=== PATIENT | male | born 1945 | race Caucasian/White ===

== ENCOUNTER → 2017-03-27 09:07 | Outpatient (CLI) | payer MEDICARE, OTHER, SELFPAY ==
[2017-03-27 10:58] LABS: Hemoglobin A1c 6.2 % (4.2-6.3)
[2017-03-27 11:05] LABS: ALB/GLOB Ratio 1.1 RATIO (0.9-2.4); AST(SGOT) 13 U/L (15-37); Alanine Aminotransfer ALT/SGPT 26 U/L (16-61); Albumin, Serum 3.9 g/dL (3.2-5.0); Alkaline Phosphatase 99 U/L (45-117); Anion Gap 9 (5-15); BUN 26 mg/dL (7-18); BUN/Creat Ratio 31.6 RATIO (10-20); Calcium,Total 8.8 mg/dL (8.5-10.1); Chloride 103 mmol/L (98-107); Cholesterol 178 mg/dL (200); Creatinine, Serum 0.82 mg/dL (0.70-1.30); EST Glomerular Filtration Rate 98 mL/min (>60); Est Glom Filt Rate - Afr Amer 118 mL/min (>60); Globulin 3.6 g/dL (2.2-4.2); Glucose 124 mg/dL (70-110); High Density Lipoprotein 66 mg/dL; Potassium 4.4 mmol/L (3.5-5.1); Protein, Total 7.5 g/dL (6.4-8.2); Sodium Level 140 mmol/L (136-145); Triglycerides 58 mg/dL; Very Low Density Lipoprotein 12 mg/dL (5-40)
== END ==
PROVIDERS: Family Provider Family Medicine; PCP Family Medicine; Visit Provider Internal Medicine Endocrinology, Diabetes & Metabolism
DX: E11.9 Type 2 diabetes mellitus without complications (principal); E03.8 Other specified hypothyroidism; E78.00 Pure hypercholesterolemia, unspecified
CPT/HCPCS: 36415; 80053; 80061; 83036; 84443

== ENCOUNTER → 2017-04-15 15:46 | Outpatient (CLI) | payer MEDICARE, OTHER, SELFPAY | PROVIDERS: Family Provider Family Medicine; PCP Family Medicine; Visit Provider Otolaryngology Otolaryngology/Facial Plastic Surgery | DX: J32.9 Chronic sinusitis, unspecified (principal) | CPT/HCPCS: 87070; 87205 ==

== ENCOUNTER → 2017-07-09 07:14 | Outpatient (CLI) | payer MEDICARE, OTHER, SELFPAY ==
[2017-07-09 08:06] LABS: ALB/GLOB Ratio 1.2 RATIO (0.9-2.4); AST(SGOT) 22 U/L (15-37); Alanine Aminotransfer ALT/SGPT 27 U/L (16-61); Albumin, Serum 3.7 g/dL (3.2-5.0); Alkaline Phosphatase 87 U/L (45-117); Anion Gap 5 (5-15); BUN 24 mg/dL (7-18); BUN/Creat Ratio 26.1 RATIO (10-20); Calcium,Total 8.9 mg/dL (8.5-10.1); Chloride 108 mmol/L (98-107); Cholesterol 154 mg/dL (200); Creatinine, Serum 0.92 mg/dL (0.70-1.30); EST Glomerular Filtration Rate 86 mL/min (>60); Est Glom Filt Rate - Afr Amer 104 mL/min (>60); Globulin 3.2 g/dL (2.2-4.2); Glucose 122 mg/dL (74-106); High Density Lipoprotein 72 mg/dL; Potassium 4.3 mmol/L (3.5-5.1); Protein, Total 6.9 g/dL (6.4-8.2); Sodium Level 142 mmol/L (136-145); Thyroid Stim Hormone (TSH) 1.84 uIU/mL (0.358-3.74); Triglycerides 44 mg/dL; Very Low Density Lipoprotein 9 mg/dL (5-40)
[2017-07-09 09:32] LABS: Hemoglobin A1c 6.2 % (4.2-6.3)
== END ==
PROVIDERS: Family Provider Family Medicine; PCP Family Medicine; Visit Provider Internal Medicine Endocrinology, Diabetes & Metabolism
DX: E11.9 Type 2 diabetes mellitus without complications (principal); E03.8 Other specified hypothyroidism; E78.00 Pure hypercholesterolemia, unspecified
CPT/HCPCS: 36415; 80053; 80061; 83036; 84443

== ENCOUNTER → 2017-10-28 07:13 | Outpatient (CLI) | payer MEDICARE, OTHER, SELFPAY ==
[2017-10-28 08:17] LABS: Hemoglobin A1c 6.3 % (4.2-6.3)
[2017-10-28 08:18] LABS: ALB/GLOB Ratio 1.2 RATIO (0.9-2.4); AST(SGOT) 14 U/L (15-37); Alanine Aminotransfer ALT/SGPT 22 U/L (16-61); Albumin, Serum 3.6 g/dL (3.2-5.0); Alkaline Phosphatase 90 U/L (45-117); Anion Gap 10 (5-15); BUN 21 mg/dL (7-18); BUN/Creat Ratio 24.5 RATIO (10-20); Calcium,Total 8.7 mg/dL (8.5-10.1); Chloride 106 mmol/L (98-107); Creatinine, Serum 0.86 mg/dL (0.70-1.30); EST Glomerular Filtration Rate 93 mL/min (>60); Est Glom Filt Rate - Afr Amer 113 mL/min (>60); Glucose 136 mg/dL (74-106); Potassium 4.1 mmol/L (3.5-5.1); Protein, Total 6.6 g/dL (6.4-8.2); Sodium Level 144 mmol/L (136-145); Thyroid Stim Hormone (TSH) 1.05 uIU/mL (0.358-3.74)
== END ==
PROVIDERS: Family Provider Family Medicine; PCP Family Medicine; Visit Provider Internal Medicine Endocrinology, Diabetes & Metabolism
DX: E11.9 Type 2 diabetes mellitus without complications (principal); E03.8 Other specified hypothyroidism
CPT/HCPCS: 36415; 80053; 83036; 84443

== ENCOUNTER → 2017-12-24 08:00 | Outpatient (CLI) | payer MEDICARE, OTHER, SELFPAY ==
--- NOTE | 2017-12-24 09:00 | LES_PTH ---
PATIENT: NITISH MUNOZ LOC: [facility] U#:[id number] AGE/SX: 79/M ROOM: RE12/24/[address]: Dr. Darren Harman MD : 1945 BED: DIS: SPEC #: [id number] RECD: 12/24/17 13:00 STATUS: MARILU JAMAAL #: [id number] MARIA ISABEL: 12/24/17 09:[address]: Darren Harman DEPT: SURGICAL PATHOLOGY RECD BY: William Alicea ENTERED: 12/24/17 14:42 SP TYPE: Lesion OTHR DR: Dr. Shekhar Arana MD Tissues: Skin of upper extremity and shoulder Procedures: Surgery Specimen Level III HEADER OPERATION: Excision of left shoulder skin lesion PRE-OP DIAGNOSIS: Skin lesion, left shoulder TISSUE SUBMITTED: Left shoulder skin lesion MICROSCOPIC DIAGNOSIS Skin lesion of left shoulder, biopsy: Epidermal inclusion cyst. AM:kenny 12/25/17 MICROSCOPIC DESCRIPTION Slides are reviewed. GROSS DESCRIPTION Received in fixative is one container labeled with the patient's name and designated left supraclavicular. The specimen consists of a piece of wilson-white skin measuring 3.6 x 2 cm and up to 1.5 cm in thickness. There is a raised wilson nodule on the surface measuring 2.5 x 1.8 cm. Sections reveal the nodule consists of a cyst filled with wilson-white cheesy material. Intern sections are submitted in one cassette. / SJ:kenny 12/24/17 :5 CPT: 02041
== END ==
PROVIDERS: Family Provider Family Medicine; PCP Family Medicine; Referring Provider Surgery; Visit Provider Surgery
DX: L98.9 Disorder of the skin and subcutaneous tissue, unspecified (principal)
CPT/HCPCS: 88304; 88305

== ENCOUNTER → 2018-01-21 08:25 | Outpatient (CLI) | payer MEDICARE, OTHER, SELFPAY ==
[2017-11-18 13:20] VITALS: BMI 27.0
[2018-01-21 11:00] LABS: PSA,Total - Annual Screen 0.15 ng/mL (0.00-4.00)
--- OUTSIDE RECORDS SUMMARY | 2018-03-18 13:37 | XMS RPT_ITS ---
:1945 Author Organization [place] Support Name Relationship Address Phone QI MUNOZ Unavailable [address] + [place] [address] LORELEI MUNOZ Unavailable [address] + [place] [address] R Unavailable Unavailable Unavailable QI MUNOZ Unavailable [address] + [place] [address] LORELEI MUNOZ Unavailable [address] + [place] [address] R Unavailable Unavailable Unavailable QI MUNOZ Unavailable [address] + [place] [address] LORELEI MUNOZ Unavailable [address] + [place] [address] R Unavailable Unavailable Unavailable QI MUNOZ Unavailable [address] + [place] [address] LORELEI MUNOZ Unavailable [address] + [place] [address] R Unavailable Unavailable Unavailable QI MUNOZ Unavailable [address] + [place] [address] LORELEI MUNOZ Unavailable [address] + [place] [address] R Unavailable Unavailable Unavailable QI MUNOZ Unavailable [address] + [place] [address] LORELEI MUNOZ Unavailable [address] + [place] [address] R Unavailable Unavailable Unavailable QI MUNOZ Unavailable [address] [phone] [place] [address] LORELEI MUNOZ Unavailable [address] + [place] [address] R Unavailable Unavailable Unavailable QI MUNOZ Unavailable [address] [phone] [place] [address] LORELEI MUNOZ Unavailable [address] + [place] [address] R Unavailable Unavailable Unavailable QI MUNOZ Unavailable [address] [phone] [place] [address] LORELEI MUNOZ Unavailable [address] + [place] [address] R Unavailable Unavailable Unavailable QI MUNOZ Unavailable [address] [phone] [place] [address] LORELEI MUNOZ Unavailable [address] + [place] [address] R Unavailable Unavailable Unavailable QI MUNOZ Unavailable [address] [phone] [place] [address] LORELEI MUNOZ Unavailable [address] + [place] [address] R Unavailable Unavailable Unavailable Care Team Providers Name Role Phone SHEKHAR ARANA Referring Unavailable JAYCOB SIN Attending Unavailable Yasmeen, Shekhar Primary Care Unavailable Gordon Lamb Attending Unavailable Yasmeen, Shekhar Primary Care Unavailable Gordon Lamb Referring Unavailable Cynthia Minor Attending Unavailable Vishal Monte Attending Unavailable Shekhar Arana Referring Unavailable Yasmeen, Shekhar Primary Care Unavailable JAYCOB SIN Attending Unavailable JAYCOB SIN Referring Unavailable Yasmeen, Shekhar Primary Care Unavailable JAYCOB SIN Attending Unavailable JAYCOB SIN Referring Unavailable Yasmeen, Shekhar Primary Care Unavailable Darren Harman Attending Unavailable Shekhar Arana Referring Unavailable Darren Harman Attending Unavailable Shekhar Arana Referring Unavailable Darren Harman Attending Unavailable CebulDarren Referring Unavailable Yasmeen, Shekhar Primary Care Unavailable Nurse, Felipe Attending Unavailable Darren Harman Referring Unavailable Kev [place] Attending Unavailable Kev [place] Referring Unavailable [facility], Shekhar Primary Care Unavailable PROBLEMS PROBLEMS DATE TYPE CONDITION / CODE ATTENDING STATUS SOURCE 12/30/2017 Unknown L98.9 - Disorder of Nurse, Standard Active [facility] skin and Community subcutaneous tissue, Hospital unspecified / Repository L98.9(ICD-10) 11/19/2017 Active Unknown / NA Active [facility](Unknown) [facility] Repository 10/28/2017 Unknown E11.9 - Type 2 JAYCOB SIN Active [facility] diabetes mellitus Community without Hospital complications / Repository E11.9(ICD-10) 10/28/2017 Unknown E03.8 - Other WIETESILVIA, JAYCOB Active [place] specified Community hypothyroidism / Hospital E03.8(ICD-10) Repository 10/28/2017 Unknown E03.9 - WIETECHA, JAYCOB Active [place] Hypothyroidism, Community unspecified / Hospital E03.9(ICD-10) Repository 07/09/2017 Unknown E78.00 - Pure WIETECHA, JAYCOB Active [place] hypercholesterolemia Community , unspecified / Hospital E78.00(ICD-10) Repository 06/05/2017 Unknown I49.3 - Ventricular Lavell, Vishal Active [place] premature Community depolarization / Hospital I49.3(ICD-10) Repository 06/05/2017 Unknown R00.1 - Bradycardia, Lavell, Telford Active [place] unspecified / Community R00.1(ICD-10) Hospital Repository PROCEDURES PROCEDURES No Procedure Records FoundRESULTS RESULTS PSA,TOTAL - ANNUAL Collected: 01/21/2018 Status: F Source: [place] SCREEN 10:06 AM [facility] REPOSITORY TYPE CODE TESTS RESULT OUT OF RANGE REFERENCE UNITS LAB L501.9910 0.00-4.00 ng/mL Normal PSA,TOT 0.15 SCREEN Result Comment: This test was performed using the TPSA assay method for the [employer] chemistry system. Values obtained with different assay methods cannot be used interchangably. When changing PSA assays in the course of monitoring a patient, additional sequential testing should be carried out to confirm baseline values. Performed By: #### L501.9910 #### [facility] [address] [place], [address] SURGERY VISIT REPORT Observed: 12/31/2017 Status: F Source: [place] 1:55 PM [facility] REPOSITORY [facility] [address] [place] [address] OFFICE VISIT Date of Service: 12/30/17 MR#: [id number] Acct: [id number] Name: CHANCE MUNOZ Rep #: [id number] : 1945 Provider: Standard Nurse, RN Age/Sex: 72/M Location: [facility] Status: Signed Intake Intake Visit Reasons: Suture Removal/Excision of Skin lesion L Shoulder Chief Complaint: excision left supraclavicular lesion Veteran Appeals Reviewer Required: No Is patient in pain?: No Allergies cefaclor [From Ceclor] Allergy (Verified 12/30/17 10:09) Unknown nortriptyline Allergy (Verified 12/30/17 10:09) Unknown Penicillins Allergy (Verified 12/30/17 10:09) blisters on feet alfuzosin [From Uroxatral] Adverse Reaction (Verified 12/30/17 10:09) Unknown esomeprazole [From Nexium] Adverse Reaction (Verified 12/30/17 10:09) Itching lansoprazole [From Prevacid] Adverse Reaction (Verified 12/30/17 10:09) Upset Stomach METAL Allergy (Uncoded 12/30/17 10:09) Rash Medications Azelastine HCl [Astelin] 1 spray NASAL BID PRN PRN 11/23/15 [History Confirmed 12/30/17] Finasteride [Proscar] 5 mg PO DAILY 11/23/15 [History Confirmed 12/30/17] Levothyroxine [Synthroid] 88 mcg PO DAILY 11/23/15 [History Confirmed 12/30/17] Paroxetine HCl [Paxil] 30 mg PO DAILY 01/01/16 [History Confirmed 12/30/17] Cholecalciferol (Vitamin D3) [Vitamin D3] 2,000 unit PO DAILY 04/25/16 [History Confirmed 12/30/17] Pumpkin Seed Oil/Saw [place] [Saw [place] 160 mg Softgel] 160 mg PO DAILY 04/25/16 [History Confirmed 12/30/17] magnesium 250 mg tablet 125 mg PO QDAY 06/05/17 [History Confirmed 12/30/17] Subjective Details: Patient is a 72 y/o male I am following for skin lesion of the left shoulder. Dr. Harman performed a an excision of the left shoulder skin lesion on 12/24/17. Patient tolerated the procedure well. Pathology resulted epidermal inclusion cyst. Patient notes minimal amount of incisional discomfort. Objective Details: Left shoulder- incision c/d/i. Minimal erythema noted. Sutures were removed. Steri-strips placed. Assessment AND Plan Problems 1. Epidermal inclusion cyst L72.0 Plan - follow-up as needed Coding Level of Care Code Global Post Op Diagnoses Epidermal inclusion cyst L72.0 12/31/17 1355 <Electronically signed by Kayla Posey PA-C> Date Kayla Posey PA-C Cosigner Signature: Date (if applicable) CC: SURGERY VISIT REPORT Observed: 12/24/2017 Status: F Source: [place] 9:24 AM [facility] REPOSITORY [facility] [address] [place] [address]. [address] [place] [address] OFFICE VISIT Date of Service: 12/24/17 MR#: [id number] Acct: [id number] Name: CHANCE MUNOZ Rep #: [id number] : 1945 Provider: Darren Harman MD Age/Sex: 72/M Location: [facility] Status: Signed Intake Intake Visit Reasons: Excision of Skin lesion L Shoulder Chief Complaint: excision left supraclavicular lesion Veteran Appeals Reviewer Required: No Is patient in pain?: No Allergies cefaclor [From Ceclor] Allergy (Verified 12/24/17 07:53) Unknown nortriptyline Allergy (Verified 12/24/17 07:53) Unknown Penicillins Allergy (Verified 12/24/17 07:53) blisters on feet alfuzosin [From Uroxatral] Adverse Reaction (Verified 12/24/17 07:53) Unknown esomeprazole [From Nexium] Adverse Reaction (Verified 12/24/17 07:53) Itching lansoprazole [From Prevacid] Adverse Reaction (Verified 12/24/17 07:53) Upset Stomach METAL Allergy (Uncoded 11/18/17 13:20) Rash Medications Azelastine HCl [Astelin] 1 spray NASAL BID PRN PRN 11/23/15 [History Confirmed 11/18/17] Finasteride [Proscar] 5 mg PO DAILY 11/23/15 [History Confirmed 11/18/17] Levothyroxine [Synthroid] 88 mcg PO DAILY 11/23/15 [History Confirmed 11/18/17] Paroxetine HCl [Paxil] 30 mg PO DAILY 01/01/16 [History Confirmed 11/18/17] Cholecalciferol (Vitamin D3) [Vitamin D3] 2,000 unit PO DAILY 04/25/16 [History Confirmed 11/18/17] Pumpkin Seed Oil/Saw [place] [Saw [place] 160 mg Softgel] 160 mg PO DAILY 04/25/16 [History Confirmed 11/18/17] magnesium 250 mg tablet 125 mg PO QDAY 06/05/17 [History Confirmed 11/18/17] [facility] Medical History Skin lesion (Acute) Premature ventricular contractions (Chronic) Bradycardia (Chronic) Fibromyalgia (Chronic) GERD (gastroesophageal reflux disease) (Chronic) Surgical History History of cholecystectomy (Chronic) History of tonsillectomy and adenoidectomy (Chronic) Family History Father Diabetes Afib pacemaker Mother Heart disease Hx CHF Hypertension Social History Smoking Status: Never smoker alcohol intake: never substance use type: does not use caffeine: Yes Type: carbonated beverages what type of physical activity do you participate in: none seatbelt use: always do you feel safe at home: Yes HPI HPI HPI: CHANCE MUNOZ, is a 72 M who presents to the office today for excision of recurrent exophytic skin lesion left apical shoulder Office Procedures Excision of Skin Provider Documentation Provider Documentation: Excision exophytic left apical shoulder skin lesion Timeout and informed consent was obtained. 72-year-old gentleman was taken to the procedure room placed upon the table. The left apical shoulder was sterilely prepped and draped. 1% lidocaine mixed 50-50 with 0.5% Marcaine was used as a local anesthetic. A total of 9 cc was used. A longitudinal 3.5 x 2 cm ellipse of lesion and skin was performed. Sharp dissection is performed down into the subcutaneous tissue for complete removal. Subdermal tissues were approximated with interrupted 3-0 chromic. Skin edges approximated simple sutures of 4-0 nylon. Telfa OpSite dressing applied . He tolerated the procedure well without apparent complication. The specimen was submitted in formalin for analysis. He was given activity and wound care instructions. He is scheduled to return the office in 6 days time for wound follow-up and suture removal. Procedure Time Out Time Out Informed consent given: Yes Consent signed: Yes Time out checklist: patient, procedure, site marked/identified, positioning of patient, supplies available, allergies confirmed, team agrees on procedure Time out staff in room: Yes Time out verified: Yes Time out date: 12/24/17 Time out time: 07:55 Assessment AND Plan Problems 1. Skin lesion L98.9 Plan Successfully excised exophytic skin lesion left apical shoulder. Pathology pending. Office follow-up in 6 days. Darren Harman M.D., F.A.C.S. Orders Orders: Coding Level of Care Code Attention [place]ida Diagnoses Skin lesion L98.9 Comment [id number] 12/24/17 0924 <Electronically signed by Darren Harman MD> Date Darren Harman MD Cosigner Signature: Date (if applicable) CC: Shekhar Arana MD LESION (CHOOSE SITE) Observed: 12/24/2017 Status: F Source: [place] 9:00 AM [facility] REPOSITORY Patient: CHANCE MUNOZ : 1945 (72/M) Acct Num: [id number] Phys: Ghazal MCKENZIE,Darren Unit Num: [id number] Loc: [facility] Specimen: [id number] Received: 12/24/17 - 1299 Spec Type: Lesion TISSUES 1 TISSUES: Skin of upper extremity and shoulder GROSS DESCRIPTION Received in fixative is one container labeled with the patient's name and designated left supraclavicular. The specimen consists of a piece of wilson- white skin measuring 3.6 x 2 cm and up to 1.5 cm in thickness. There is a raised wilson nodule on the surface measuring 2.5 x 1.8 cm. Sections reveal the nodule consists of a cyst filled with wilson-white cheesy material. [employer] Clerk sections are submitted in one cassette. / SJ:kenny 12/24/17 TC:5 CPT: 66926 HEADER OPERATION: Excision of left shoulder skin lesion PRE-OP DIAGNOSIS: Skin lesion, left shoulder TISSUE SUBMITTED: Left shoulder skin lesion MICROSCOPIC DESCRIPTION Slides are reviewed. MICROSCOPIC DIAGNOSIS Skin lesion of left shoulder, biopsy: Epidermal inclusion cyst. AM:kenny 12/25/17 Signed [facility]ma[facility] 12/25/17 <signature on file> Performed By: #### PLES #### [facility] [address] [place] [address]. [place], [place], [address] PROGRESS Observed: 11/19/2017 Status: COMPLETED Source: [place] 8:40 AM [facility] REPOSITORY HNO ID: [id number] Author: Neris (Rt) Nicola Munoz Service: (none) Author Type: Pediatric Rn Type: Progress Notes Filed: 11/19/2017 8:41 AM Note Text: Radiology Service Progress Note PATIENT NAME: Chance Munoz DATE OF SERVICE: November 19, 2017 TIME: 8:40 AM PATIENT IDENTITY VERIFICATION COMPLETED USING TWO (2) METHODS: Patient confirmed name verbally and Date of . PATIENT GENDER DATA: Male PATIENT RELEVANT IMPLANT DATA REVIEWED: Not Applicable RADIOLOGY DEPARTMENT: General X-ray: Exam(s) Completed: Chest X-Ray PERIPHERAL IV DATA: Not applicable SIGNED BY: RT [place]eta November 19, 2017 8:40 AM XR CHEST 2V FRONTAL/LAT Observed: 11/19/2017 Status: F Source: [place] 8:39 AM [facility] REPOSITORY * * *Final Report* * * DATE OF EXAM: Nov 19 2017 8:39AM WRX [id number] - XR CHEST 2V FRONTAL/LAT / PROCEDURE REASON: chest * * * * Physician Interpretation * * * * EXAMINATION: CHEST RADIOGRAPH (2 VIEW FRONTAL and LATERAL) CLINICAL HISTORY: Cough MQ: XC2_5 Comparison: Chest x-ray 05/19/2007 RESULT: Lines, tubes, and devices: None. Lungs and pleura: No consolidation. No lung mass. No pleural effusion. Cardiomediastinal silhouette: Normal cardiomediastinal silhouette. Other: . IMPRESSION: No acute radiographic abnormality. Fuel Truck Driver: PSCJessica Transcribe Date/Time: Nov 19 2017 8:54A Dictated by : MELVA ENCISO MD This examination was interpreted and the report reviewed and electronically signed by: MELVA ENCISO MD on Nov 19 2017 8:59AM EST [id number] SURGERY VISIT REPORT Observed: 11/18/2017 Status: F Source: [place] 1:27 PM [facility] REPOSITORY [facility] [address] [place] [address]. [address] [place] [address] OFFICE VISIT Date of Service: 11/18/17 MR#: [id number] Acct: [id number] Name: CHANCE MUNOZ Rep #: [id number] : 1945 Provider: Darren Harman MD Age/Sex: 72/M Location: [facility] Status: Signed Intake Vital Signs11/18/17 Height 5 ft 11 in 11/18/17 Weight: 194 lb 11/18/17 Body Mass Index (BMI) 27.0 Intake Visit Reasons: L Suprclavicular Skin Mass Chief Complaint: Follow up Veteran Appeals Reviewer Required: No Is patient in pain?: No Allergies cefaclor [From Ceclor] Allergy (Verified 11/18/17 13:20) Unknown nortriptyline Allergy (Verified 11/18/17 13:20) Unknown Penicillins Allergy (Verified 11/18/17 13:20) blisters on feet alfuzosin [From Uroxatral] Adverse Reaction (Verified 11/18/17 13:20) Unknown esomeprazole [From Nexium] Adverse Reaction (Verified 11/18/17 13:20) Itching lansoprazole [From Prevacid] Adverse Reaction (Verified 11/18/17 13:20) Upset Stomach METAL Allergy (Uncoded 11/18/17 13:20) Rash Medications Azelastine HCl [Astelin] 1 spray NASAL BID PRN PRN 11/23/15 [History Confirmed 11/18/17] Finasteride [Proscar] 5 mg PO DAILY 11/23/15 [History Confirmed 11/18/17] Levothyroxine [Synthroid] 88 mcg PO DAILY 11/23/15 [History Confirmed 11/18/17] Paroxetine HCl [Paxil] 30 mg PO DAILY 01/01/16 [History Confirmed 11/18/17] Cholecalciferol (Vitamin D3) [Vitamin D3] 2,000 unit PO DAILY 04/25/16 [History Confirmed 11/18/17] Pumpkin Seed Oil/Saw [place] [Saw [place] 160 mg Softgel] 160 mg PO DAILY 04/25/16 [History Confirmed 11/18/17] magnesium 250 mg tablet 125 mg PO QDAY 06/05/17 [History Confirmed 11/18/17] PFSH Medical History Premature ventricular contractions (Chronic) Bradycardia (Chronic) Fibromyalgia (Chronic) GERD (gastroesophageal reflux disease) (Chronic) Surgical History History of cholecystectomy (Chronic) History of tonsillectomy and adenoidectomy (Chronic) Family History Father Diabetes Afib pacemaker Mother Heart disease Hx CHF Hypertension Social History Smoking Status: Never smoker alcohol intake: never substance use type: does not use caffeine: Yes Type: carbonated beverages what type of physical activity do you participate in: none seatbelt use: always do you feel safe at home: Yes HPI HPI HPI: CHANCE MUNOZ, is a 72 M who presents to the office today for surgical consultation regarding a recurrent dermal lesion left supraclavicular area. The patient is referred by Dr. Shekhar Arana and a written copy of my surgical consult recommendations will return to him. By report Dr. Felix Lakhani apparently remove this area several years back. The patient is very nonspecific. Patient states that was not completely excised at that time. The patient is not on any anticoagulants. The area has been progressively enlarging. ROS General General: No weight change, appetite, fatigue, colon cancer, breast cancer or weakness HEENT HEENT: No difficulty swallowing, eye injury, eye surgery, swollen glands or hoarseness Endo Endocrine: No thyroid disease, diabetes mellitus, thyroid cancer, Hair loss, heat intolerance or cold intolerance Skin Skin: No rash or changing moles Breast Breast: No left breast lump, right breast lump, nipple discharge, breast pain, abnormal mammogram, abnormal US or breast enlargement Musc Musculoskeletal: Yes back problems; no arthritis, rheumatoid arthritis, gout or joint pain Cardio Cardiovascular: No murmur, pacemaker, heart disease, atrial fibrillation, high blood pressure, heart attack, heart stent, palpitations, shortness of breat with exertion or chest pain Psych Psychiatric: Yes anxiety; no depression or hearing voices Resp Respiratory: No shortness of breath, No sleep apnea, No cough, No COPD, No asthma, No emphysema, No wheezing Gastro Gastrointestinal: Yes abdominal pain, Yes acid reflux, No nausea or vomiting, No diarrhea, No constipation, No blood in stool, No hemorrhoids, No ulcers, No gallbladder problem, No black,tarry stools Sherwin Hematologic: No blood thinners, No blood disorders, No bleeding, No anemia, No blood clots Neuro Neurologic: No system reviewed and no additional complaints, except as docu, No as per HPI, No abnormal walking, No abnormal hearing, No abnormal movements, No abnormal speech, No behavioral changes, No burning sensations, No confusion, No seizure-like activity, No unsteadiness, No dizziness, No localized weakness, No frequent falls, No headache(s), No lack of coordination, No loss of vision, No memory loss, No numbness, No other visual disturbances, No radiating pain, No restless legs, No sensory deficit, No fainting, No tingling, No tremor(s), No weakness, No other Exam Chest Breast Palpation: No nipple discharge Other: Left supraclavicular space. Exophytic whitish wilber colored 2.3 x 1.4 cm exophytic smooth lesion Cardio Heart Sounds: no murmurs Assessment AND Plan Problems 1. Skin lesion L98.9 Plan The patient was referred with a tentative diagnosis of possible hemangioma left supraclavicular space. I have some concern that this may represent a recurrent sebaceous cyst. It certainly has some size to it. I do recommend a elliptical excision of the area. I believe that we can accomplish that in an office setting under local anesthetic and I have described the technique, benefits, risks, alternatives. A complete elliptical excision is planned with layered closure. He has had an opportunity to ask and have questions answered. We will schedule and proceed at his discretion. I appreciate the opportunity of assisting with his surgical care. Cc: Dr. Shekhar Harman M.D., F.A.C.S. Coding Level of Care Code Off vis,new,level 1 Diagnoses Skin lesion L98.9 11/18/17 1327 <Electronically signed by Darren Harman MD> Date Darren Harman MD Cosigner Signature: Date (if applicable) CC: Shekhar Arana MD HEMOGLOBIN A1C Collected: 10/28/2017 Status: F Source: [place] 7:19 AM [facility] REPOSITORY TYPE CODE TESTS RESULT OUT OF RANGE REFERENCE UNITS LAB L501.9985 4.2-6.3 % Normal HGB A1C 6.3 Performed By: #### L501.9985 #### [facility] [address] [place], [address] COMPREHENSIVE METABOLIC Collected: 10/28/2017 Status: F Source: [facility] 7:19 AM [facility] REPOSITORY TYPE CODE TESTS RESULT OUT OF RANGE REFERENCE UNITS LAB L501.0100 74-106 mg/dL High GLU 136 Result Comment: Fasting Glucose result greater than or equal to 126 mg/dL suggests DIABETES MELLITUS per A.D.A. criteria. Please note revised GLUCOSE reference range effective 2017. LAB L501.1000 7-18 mg/dL High BUN 21 LAB L501.1100 0.70-1.30 mg/dL Normal CREAT,SERUM 0.86 Result Comment: The validity of the calculated GFR AND GFRAA in patients over 70 years has not been determined. Clinical correlation is essential. LAB L501.1110 >60 mL/min Normal EST GFR 93 Result Comment: Non- GFR Calc LAB L501.1115 >60 mL/min Normal EST GFR - AA 113 Result Comment: GFR Calc LAB L501.1300 10-20 RATIO High BUN/CRE 24.5 LAB L501.1500 6.4-8.2 g/dL T Normal PROT 6.6 LAB L501.1800 3.2-5.0 g/dL Normal ALB 3.6 LAB L501.1950 2.2-4.2 g/dL Normal GLOB 3.0 LAB L501.2000 0.9-2.4 RATIO Normal A/G 1.2 LAB L501.2200 8.5-10.1 mg/dL CA Normal 8.7 LAB L501.4100 15-37 U/L Low AST 14 LAB L501.4305 45-117 U/L Normal ALK P 90 LAB L501.4405 16-61 U/L Normal ALT 22 LAB L501.4600 0.20-1.00 mg/dL T Normal BILI 0.70 LAB L501.5300 136-145 mmol/L NA Normal 144 LAB L501.5600 3.5-5.1 mmol/L K Normal 4.1 LAB L501.5900 98-107 mmol/L CL Normal 106 LAB L501.6100 21.0-32.0 mmol/L Normal CO2 28.0 LAB L501.6200 5-15 Normal GAP 10 Performed By: #### L500.4050, L501.9520 #### [facility] [address] [place], [place], [id number] THYROID STIM HORMONE Collected: 10/28/2017 Status: F Source: [place] ([place]) 7:19 AM [facility] REPOSITORY TYPE CODE TESTS RESULT OUT OF RANGE REFERENCE UNITS LAB L501.9520 0.358-3.74 uIU/mL Normal TSH 1.05 Performed By: #### L500.4050, L501.9520 #### [facility] [address] [place], [place], [address] COMPREHENSIVE METABOLIC Collected: 07/09/2017 Status: F Source: [place] 7:18 AM [facility] REPOSITORY TYPE CODE TESTS RESULT OUT OF RANGE REFERENCE UNITS LAB L501.0100 74-106 mg/dL High GLU 122 Result Comment: Fasting Glucose result from 100 to 125 mg/dL suggests IMPAIRED HOMEOSTASIS per A.D.A. criteria. Please note revised GLUCOSE reference range effective 2017. LAB L501.1000 7-18 mg/dL High BUN 24 LAB L501.1100 0.70-1.30 mg/dL Normal CREAT,SERUM 0.92 Result Comment: The validity of the calculated GFR AND GFRAA in patients over 70 years has not been determined. Clinical correlation is essential. LAB L501.1110 >60 mL/min Normal EST GFR 86 Result Comment: Non- GFR Calc LAB L501.1115 >60 mL/min Normal EST GFR - AA 104 Result Comment: GFR Calc LAB L501.1300 10-20 RATIO High BUN/CRE 26.1 LAB L501.1500 6.4-8.2 g/dL T Normal PROT 6.9 LAB L501.1800 3.2-5.0 g/dL Normal ALB 3.7 LAB L501.1950 2.2-4.2 g/dL Normal GLOB 3.2 LAB L501.2000 0.9-2.4 RATIO Normal A/G 1.2 LAB L501.2200 8.5-10.1 mg/dL CA Normal 8.9 LAB L501.4100 15-37 U/L Normal AST 22 LAB L501.4305 45-117 U/L Normal ALK P 87 LAB L501.4405 16-61 U/L Normal ALT 27 LAB L501.4600 0.20-1.00 mg/dL T Normal BILI 0.80 LAB L501.5300 136-145 mmol/L NA Normal 142 LAB L501.5600 3.5-5.1 mmol/L K Normal 4.3 LAB L501.5900 98-107 mmol/L High CL 108 LAB L501.6100 21.0-32.0 mmol/L Normal CO2 29.0 LAB L501.6200 5-15 Normal GAP 5 Performed By: #### L500.4050, L500.4100, L501.9520 #### [facility] [address] [place], [address] LIPID PROFILE Collected: 07/09/2017 Status: F Source: GILBERT 7:18 AM [facility] REPOSITORY TYPE CODE TESTS RESULT OUT OF RANGE REFERENCE UNITS LAB L501.4900 200 mg/dL Normal CHOL 154 Result Comment: <200 mg/dL Desirable 200-240 mg/dL Borderline >240 mg/dL High Risk LAB L501.5000 mg/dL Normal TRIG 44 Result Comment: The drugs N-Acetylcysteine and Metamizole may falsely depress this assay. Serum Triglycerides Reference Interval Normal <150 mg/dL Borderline high 150 - 199 mg/dL High 200 - 499 mg/dL Very High > or = 500 mg/dL LAB L501.6400 mg/dL Normal HDL 72 Result Comment: The drugs N-Acetylcysteine and Metamizole may falsely depress this assay. Reference Range HDL <40 mg/dL Low HDL Cholesterol HDL >or= 60 mg/dL High HDL Cholesterol LAB L501.6500 0-130 mg/dL Normal LDL 73 LAB L501.6600 5-40 mg/dL Normal VLDL 9 Performed By: #### L500.4050, L500.4100, L501.9520 #### [facility] [address] [place], [address] THYROID STIM HORMONE Collected: 07/09/2017 Status: F Source: [place]IA[place] (TSH) 7:18 AM [facility] REPOSITORY TYPE CODE TESTS RESULT OUT OF RANGE REFERENCE UNITS LAB L501.9520 0.358-3.74 uIU/mL Normal TSH 1.84 Performed By: #### L500.4050, L500.4100, L501.9520 #### [facility] [address] [place], [address] HEMOGLOBIN A1C Collected: 07/09/2017 Status: F Source: DIA[place] 7:18 AM [facility] REPOSITORY TYPE CODE TESTS RESULT OUT OF RANGE REFERENCE UNITS LAB L501.9985 4.2-6.3 % Normal HGB A1C 6.2 Performed By: #### L501.9985 #### [facility] [address] [place], [address] CARDIOLOGY VISIT Observed: 06/05/2017 Status: F Source: DIAZ REPORT 1:36 PM [facility] REPOSITORY [facility] [address] [place] [address] OFFICE VISIT Date of Service: 06/05/17 MR#: [id number] Acct: [id number] Name: CHANCE MUNOZ Rep #: [id number] : 1945 Provider: Vishal Monte MD Age/Sex: 71/M Location: [facility] [place] Status: Signed HPI HPI Chief Complaint: Follow up Details: CHANCE MUNOZ, is a 71 M who presents to the office today for a follow-up visit. Is a gentleman with a history of bradycardia and premature ventricular complexes. He returns for routine follow-up visit. He has a number of multiple complaints including xerostomia tinnitus myalgias dizziness constipation and nocturia. He has had no neck arm or jaw discomfort suggest angina no dizziness or diaphoresis no near syncope or syncope. His physical exam today demonstrates clear lung alejandre regular rate and rhythm and no pedal edema his electrocardiogram confirms normal sinus rhythm with a rate of 62 bpm. 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 Accompanied by: None Is patient in pain?: No Allergies cefaclor [From Ceclor] Allergy (Verified 06/05/17 11:11) Unknown nortriptyline Allergy (Verified 06/05/17 11:11) Unknown Penicillins Allergy (Verified 06/05/17 11:11) blisters on feet alfuzosin [From Uroxatral] Adverse Reaction (Verified 06/05/17 11:11) Unknown esomeprazole [From Nexium] Adverse Reaction (Verified 06/05/17 11:11) Itching lansoprazole [From Prevacid] Adverse Reaction (Verified 06/05/17 11:11) Upset Stomach METAL Allergy (Uncoded 04/25/16 15:16) Rash Medications Azelastine HCl [Astelin] 1 spray NASAL BID PRN PRN 11/23/15 [History Confirmed 06/05/17] Finasteride [Proscar] 5 mg PO DAILY 11/23/15 [History Confirmed 06/05/17] Levothyroxine [Synthroid] 88 mcg PO DAILY 11/23/15 [History Confirmed 06/05/17] Paroxetine HCl [Paxil] 30 mg PO DAILY 01/01/16 [History Confirmed 06/05/17] Cholecalciferol (Vitamin D3) [Vitamin D3] 2,000 unit PO DAILY 04/25/16 [History Confirmed 06/05/17] Pumpkin Seed Oil/Saw [place] [Saw [place] 160 mg Softgel] 160 mg PO DAILY 04/25/16 [History Confirmed 06/05/17] magnesium 250 mg tablet 125 mg PO QDAY 06/05/17 [History Confirmed 06/05/17] Ejection fraction %: 50 to 54 (50% per echo 12/04/2015) [facility] Medical History Premature ventricular contractions (Chronic) Bradycardia (Chronic) Fibromyalgia (Chronic) GERD (gastroesophageal reflux disease) (Chronic) Surgical History History of cholecystectomy (Chronic) History of tonsillectomy and adenoidectomy (Chronic) Family History Father Diabetes Afib pacemaker Mother Heart disease Hx CHF Hypertension Social History Smoking Status: Never smoker alcohol intake: never substance use type: does not use caffeine: Yes Type: carbonated beverages what type of physical activity do you participate in: none seatbelt use: always do you feel safe at home: Yes ROS Const Const: Negative for body ache, fever(s), chills, night sweats, daytime sleepiness, difficulty sleeping, weight gain, weight loss, increased appetite, poor appetite, anorexia, other, frequent falls, headache(s), weakness, fatigue or excessive sweating Eyes Eyes: Negative for blind spots, loss of peripheral vision, transient loss of vision, change in vision, floaters, tunnel vision, other, blurry vision or double vision ENT ENT: Positive for tinnitus and dry mouth; negative for hearing loss, Nosebleed/epistaxis, balance problems, post nasal drip, lip swelling, tongue swelling, bleeding gums, hoarseness, neck pain, other, dizziness or headache(s) Cardio Chest Pain: No Palpitations: No Edema: Bilateral (lower extremities) Muscle aches with walking: None Resp Respiratory: Negative for SOB with activity, SOB at rest, SOB orthopnea\SOB lying down, Cough, Coughing up blood/hemoptysis, chest congestion, pain on inspiration, snoring, stridor, wheezing, crackles, paroxysmal nocturnal dyspnea or other GI GI: Positive for heartburn and constipation; negative nausea, vomiting, belching, bloating, cramping, vomiting blood/hematemesis, bright, red blood in stools, black,tarry stools, loose stools, Difficulty Swallowing or other : Positive for frequent nighttime urination/ nocturia; negative for hematuria, erectile dysfunction or abnormal vaginal bleeding Musc Musc: Positive for muscle aches/ myalgia; negative for muscle weakness, joint pain or balance problems Skin Skin: Negative redness, non-healing lesions, rash, unusual bruising, skin ulcer, wounds, jaundice or other Neuro Neuro: Negative for dizziness, lightheadedness, near syncope, syncope, orthostatic symptoms, frequent falls, headache(s), weakness, confusion, memory loss, restless legs, blurry vision, double vision, vertigo, seizures, lack of coordination or other [place]win Hematologic/Lymphatic: Negative for easy bleeding, easy bruising or enlarged lymph nodes Endo Endo: Negative for fatigue, cold intolerance, heat intolerance, excessive sweating, flushing, increased thirst/drinking, increased hunger, hair loss, hair growth or other Psych Psych: Negative for anxiety, depression, thoughts of harming anyone, thoughts of harming yourself, panic attacks, visual hallucinations or audible hallucinations Allergy Allergy/Immunology: Negative for throat swelling, Negative for hives, Negative for lip swelling, Negative for tongue swelling, Negative for rash Cardiology Exam Const Appearance: cooperative, healthy appearing, well developed, well groomed and no acute distress Nutritional Appearance: well nourished and average body habitus Orientation: alert, awake and oriented x3 Head Head: normal to inspection, normocephalic and atraumatic Ears: hearing grossly normal bilaterally and external ears normal Nose: external nose normal, nasal mucous membranes and turbinates normal, nares normal, septum normal, no nasal discharge Face and Sinus: face symmetric Mouth: oral mucosae normal, tongue normal, oropharynx normal and moist mucous membranes Teeth and gingiva: dentition normal Throat: posterior oropharynx normal, tonsils normal and uvula midline Eyes General: appearance normal, both eyes and all related structures Eyelids: eyelids normal Conjunctivae: conjunctivae normal Pupils: PERRL, normal by confrontation and accommodation normal EOM: EOM intact bilaterally Neck Neck: normal visual inspection, trachea midline and no JVD JVD: +5 Carotids: normal carotid upstroke and bounding pulses Chest Chest inspection: normal inspection of the chest, symmetric chest movement and normal respiratory effort Auscultation: Bilateral: Clear to Auscultation Cardio Palpation: normal PMI Rate: regular rate Rhythm: regular rhythm Heart sounds: S1 normal, S2 normal and normal, physiologic split S2; negative rub, gallop or murmur GI GI: normal to inspection, soft, no hepatosplenomegaly and bowel sounds present Neuro General: alert, awake, oriented x3, no focal sensory deficit, gait normal and moves all extremities Skin Skin: no rashes or lesions noted Extremities Pulses: Normal: Right Femoral Pulse, Left Femoral Pulse, Right Dorsalis Pedis Pulse, Left Dorsalis Pedis Pulse, Right Posterior Tibial Pulse, Left Posterior Tibial Pulse, Right Radial Pulse, Left Radial Pulse Lower Extremity Edema: None: Bilateral Musculoskel Musculoskeletal: No joint tenderness Psych Psychological: normal affect Assessment AND Plan 1. Premature ventricular contractions I49.3 Plan He does have a history of premature ventricular complexes which are infrequent and asymptomatic. My recommendation at this time would be to continue to follow him clinically. He has had recent electrolytes obtained which have been normal. I would not suggest that we make any changes. Orders Orders: 2. Hyperlipidemia E78.5 Plan His recent lipid profile done demonstrates a total cholesterol 178 and LDL of 100 and an HDL of 66. His triglycerides were 58. From my standpoint I would not recommend lipid-lowering medication at this time. With regard to his other symptoms I suspect may be related to his paroxetine and if the dose can be decreased it may be helpful. His nocturia will be addressed by his urologist. Plan Detail Other Orders Orders: Follow Up 1 Year (r) Coding Level of Care Code Off vis,est,level 3 Diagnoses Premature ventricular contractions I49.3 Hyperlipidemia E78.5 Coding Level of Care Code Off vis,est,level 3 Diagnoses Premature ventricular contractions I49.3 Hyperlipidemia E78.5 06/05/17 1336 <Electronically signed by Vishal Monte MD> Date Vishal Monte MD Cosigner Signature: Date (if applicable) CC: Shekhar Arana 12 LEAD EKG PERFORMED Observed: 06/05/2017 Status: F Source: [place] BY BMS 11:19 AM [facility] REPOSITORY [facility] [address] [place] [address] 12 Lead EKG performed by [facility] 06/05/171117 MR#: [id number] Acct: [id number] Name: CHANCE MUNOZ Rep #: [id number] : 1945 71 From: Vishal Monte MD Attending Dr: Vishal Monte MD Status: DEP AMB Ordering Dr: Vishal Monte MD Date: 06/05/17 Location[place] [facility] [place] Sex: M C Admitted: [facility]/12 Lead EKG performed by [facility] ECG Report Interpretation Sinus Rhythm -With rate variation cv = 22.-RSR(V1) -nondiagnostic. 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 Cult No Haemophilus, Streptococcus pneumoniae, beta-hemolytic Streptococcus or Staphylococcus aureus isolated. Performed By: #### M100.0900 #### [facility] [address] [place], [address] HEMOGLOBIN A1C Collected: 03/27/2017 Status: F Source: DIAZ 9:13 AM [facility] REPOSITORY TYPE CODE TESTS RESULT OUT OF RANGE REFERENCE UNITS LAB L501.9985 4.2-6.3 % Normal HGB A1C 6.2 Performed By: #### L501.9985 #### [facility] [address] [place], [address] COMPREHENSIVE METABOLIC Collected: 03/27/2017 Status: F [facility] REPOSITORY TYPE CODE TESTS RESULT OUT OF RANGE REFERENCE UNITS LAB L501.0100 70-110 mg/dL High GLU 124 Result Comment: Fasting Glucose result from 110 to <126 mg/dL suggests IMPAIRED HOMEOSTASIS per A.D.A. criteria. LAB L501.1000 7-18 mg/dL High BUN 26 LAB L501.1100 0.70-1.30 mg/dL Normal CREAT,SERUM 0.82 Result Comment: The validity of the calculated GFR AND GFRAA in patients over 70 years has not been determined. Clinical correlation is essential. LAB L501.1110 >60 mL/min Normal EST GFR 98 Result Comment: Non- GFR Calc LAB L501.1115 >60 mL/min Normal EST GFR - AA 118 Result Comment: GFR Calc LAB L501.1300 10-20 RATIO High BUN/CRE 31.6 LAB L501.1500 6.4-8.2 g/dL T Normal PROT 7.5 LAB L501.1800 3.2-5.0 g/dL Normal ALB 3.9 LAB L501.1950 2.2-4.2 g/dL Normal GLOB 3.6 LAB L501.2000 0.9-2.4 RATIO Normal A/G 1.1 LAB L501.2200 8.5-10.1 mg/dL CA Normal 8.8 LAB L501.4100 15-37 U/L Low AST 13 LAB L501.4305 45-117 U/L Normal ALK P 99 LAB L501.4405 16-61 U/L Normal ALT 26 Result Comment: Please note revised ALT reference range effective 2017. LAB L501.4600 0.20-1.00 mg/dL Normal T BILI 0.80 LAB L501.5300 136-145 mmol/L Normal NA 140 LAB L501.5600 3.5-5.1 mmol/L Normal K 4.4 LAB L501.5900 98-107 mmol/L Normal CL 103 LAB L501.6100 21.0-32.0 mmol/L Normal CO2 28.0 LAB L501.6200 5-15 Normal GAP 9 Performed By: #### L500.4050, L500.4100, L501.9520 #### [facility] [address] [facility] [place], [place], [address] LIPID PROFILE Collected: 03/27/2017 Status: F Source: [place] 9:13 AM [facility] REPOSITORY TYPE CODE TESTS RESULT OUT OF RANGE REFERENCE UNITS LAB L501.4900 200 mg/dL Normal CHOL 178 Result Comment: <200 mg/dL Desirable 200-240 mg/dL Borderline >240 mg/dL High Risk LAB L501.5000 mg/dL Normal TRIG 58 Result Comment: The drugs N-Acetylcysteine and Metamizole may falsely depress this assay. Serum Triglycerides Reference Interval Normal <150 mg/dL Borderline high 150 - 199 mg/dL High 200 - 499 mg/dL Very High > or = 500 mg/dL LAB L501.6400 mg/dL Normal HDL 66 Result Comment: The drugs N-Acetylcysteine and Metamizole may falsely depress this assay. Reference Range HDL <40 mg/dL Low HDL Cholesterol HDL >or= 60 mg/dL High HDL Cholesterol LAB L501.6500 0-130 mg/dL Normal LDL 100 LAB L501.6600 5-40 mg/dL Normal VLDL 12 Performed By: #### L500.4050, L500.4100, L501.9520 #### [facility] [address] [facility] [place], [place], [address] THYROID STIM HORMONE Collected: 03/27/2017 Status: F Source: [place] (TSH) 9:13 AM [facility] REPOSITORY TYPE CODE TESTS RESULT OUT OF RANGE REFERENCE UNITS LAB L501.9520 0.358-3.74 uIU/mL Normal TSH 2.20 Performed By: #### L500.4050, L500.4100, L501.9520 #### [facility] [address] [facility] [place], [place], [address] ALLERGIES ALLERGIES DATE TYPE / CODE NAME / CODE REACTION SEVERITY SOURCE Drug Penicillins/F0010 blisters on Unknown [place] 8 Allergy/397852399( 16251(RXNORM) [facility] Rep[facility] Drug cefaclor/[id number] Unknown Unknown [place] Allergy/259751469( 26(RXNORM) [facility] Rep[facility] Drug lansoprazole/F006 Upset Stomach Unknown [place] Allergy/776515112( 858163(RXNORM) [facility] Rep[facility] Drug nortriptyline/F00 Unknown Unknown [place] 8 Allergy/841613934( 3910896(RXNORM) [facility] Rep[facility] Drug alfuzosin/J754476 Unknown Unknown [place] Allergy/591973847( 431(RXNORM) [facility] Drug esomeprazole/F006 Itching Unknown [place] 8 Allergy/006729069( 427003(RXNORM) [facility] Hospital Repository Miscellaneous METAL Rash Unknown [place] Allergy/644333708( [facility] Hospital Repository DRUG ALFUZOSIN HCL INTOLERANCE [place] 0 INGREDI/046305720( Clinic Main SNOMED CT) [place] Repository DRUG LANSOPRAZOLE DIARRHEA High [place] 0 INGREDI/583993497( Clinic Main SNOMED CT) [place] Rep[facility] DRUG CEFACLOR ITCHING [place] 5 INGREDI/451373905( Clinic Main SNOMED CT) [place] Repository DRUG/505942808(SNO ESOMEPRAZOLE ITCHING [place] [address]) MAGNESIUM Clinic Main [place] Repository DRUG NORTRIPTYLINE [place] 5 INGREDI/736933751( Clinic Main SNOMED CT) [place] Rep[facility] Drug PENICILLINS ITCHING [place] 5 Class/882832269(SN Clinic Main OMED CT) [place] Repository ENCOUNTERS ENCOUNTERS ADMIT/DISCHARGE ACCOUNT ADMITTING ENCOUNTER LOCATION SOURCE NUMBER CLASS 01/21/2018 [id number] Ambulatory [place] [facility] ing:LAB Repository 12/30/2017/12/31/19 [id number] Ambulatory BMSBuilding:B [place] [facility] [place].[facility] Repository 12/24/2017 [id number] Ambulatory [facility] ing:LABSPEC Repository 12/24/2017/12/25/19 [id number] Ambulatory BMSBuilding:B [place] [facility] [place].[facility] Repository 11/19/2017/11/20/19 [id number] Ambulatory [address] Repository 11/18/2017/11/19/19 [id number] Ambulatory BMSBuilding:B [place] 18 [place].[facility] Repository 10/28/2017 [id number] Ambulatory [facility] ing:LAB Repository 07/09/2017 [id number] Ambulatory [facility] ing:LAB Repository 06/05/2017/06/06/19 [id number] Ambulatory BMSBuilding:B [place] [address] [place] Repository 06/03/2017 [id number] Ambulatory [facility] Repository 04/15/2017 [id number] Ambulatory [facility] ing:LABSPEC Repository 03/27/2017 [id number] Ambulatory [facility] ing:LAB Repository PAYERS PAYERS ENCOUNTER GUARANTOR PAYER SUBSCRIBER SOURCE 01/21/2018 EDWARD E Primary EDWARD E [place] [id number] Insurance:MEDICARE MILLERDOB: Community [place] [facility] [id number] [place], [place] Number: Repository [id number]: [phone] [id number] [phone] () Date:2018-01-21 01/21/2018 Secondary EDWARD E [place] Insurance:AETNA SR MILLERDOB: Community SUPPLEMENT [facility] [id number] [facility] Number: Repository [id number] Date:4636-32-76TLVUO SENIOR SUPPLEMENT [address] [address], [place] [address]SG: 01/21/2018 Tertiary NOT GIVENUNK [place] Insurance:SELF PAY [facility] Number: Effective Repository Date:2018-01-21 12/30/2017 EDWARD E Primary EDWARD E [place] [id number] Insurance:MEDICARE MILLERDOB: Community [place] [facility] [id number] Number[place] Repository [id number]: 330 [id number] [phone] (HP) Date:2017-12-24 12/30/2017 Secondary EDWARD E [place] Insurance:AETNA SR MILLERDOB: Community SUPPLEMENT [facility] [id number] Hospital Number: Repository [id number] Date:1859-13-93XRJDB SENIOR SUPPLEMENT [address] [place] [address]QJ: 12/30/2017 Tertiary NOT GIVENUNK [place] Insurance:SELF [facility] Effective Repository Date:2017-12-24 12/24/2017 EDWARD E Primary EDWARD E [place] [id number] Insurance:MEDICARE MILLERDOB: Community [place] [facility] [id number] Number: Repository [address]Xqj: 330 [id number] [phone] (HP) Date:2017-12-24 12/24/2017 Secondary EDWARD E [place] Insurance:AETNA SR MILLERDOB: Community SUPPLEMENT [facility] [id number] Hospital Number: Repository [id number] Date:1567-00-27FBEER SENIOR SUPPLEMENT [address] [place] [address]OP: 12/24/2017 Tertiary NOT GIVENUNK [place] Insurance:SELF PAY [facility] Hospital Number: Effective Repository Date:2017-12-24 12/24/2017 EDWARD E Primary EDWARD E [place] [id number] Insurance:MEDICARE MILLERDOB: Community [place] [employer] [facility] [id number] Number: Repository [id number]: 330 [id number] [phone] (HP) Date:2017-11-24 12/24/2017 Secondary EDWARD E [place] Insurance:AETNA SR MILLERDOB: Community SUPPLEMENT [facility] [id number] Hospital Number: Repository [id number] Date:1445-45-36LDKXO SENIOR SUPPLEMENT [address] [address], [place] [address]EI: 12/24/2017 Tertiary NOT GIVENUNK [place] Insurance:SELF PAY [facility] Number: Effective Repository Date:2017-12-23 11/18/2017 EDWARD E Primary EDWARD E [place] [id number] Insurance:MEDICARE MILLERDOB: Community [place] [employer] [facility] [id number] Number: Repository [id number]: 330 [id number] [phone] (HP) Date:2017-10-23 11/18/2017 Secondary EDWARD E [place] Insurance:AETNA SR MILLERDOB: Community SUPPLEMENT [facility] [id number] Hospital Number: Repository [id number] Date:7624-70-48FIITW SENIOR SUPPLEMENT [address] [address], [place] [address]QP: 11/18/2017 Tertiary NOT GIVENUNK [place] Insurance:SELF PAY [facility] Number: Effective Repository Date:2017-10-23 10/28/2017 EDWARD E Primary EDWARD E [place] [id number] Insurance:MEDICARE MILLERDOB: Community [place] [facility] [id number] Number: Repository [address]Sqh: 330 [id number] [phone] (HP) Date:2017-10-28 10/28/2017 Secondary EDWARD E [place] Insurance:AETNA SR MILLERDOB: Community SUPPLEMENT [facility] [id number] Hospital Number: Repository [id number] Date:9398-25-60RETGS SENIOR SUPPLEMENT [address] [address], [place] [address]TS: 10/28/2017 Tertiary NOT GIVENUNK [place] Insurance:SELF PAY [facility] Hospital Number: Effective Repository Date:2017-10-28 07/09/2017 EDWARD E Primary EDWARD E [place] [id number] Insurance:MEDICARE MILLERDOB: Community [place] [employer] [facility] [id number] [place] Number: Repository [id number]: 330 [id number] [phone] (HP) Date:2017-07-09 07/09/2017 Secondary EDWARD E [place] Insurance:AETNA SR MILLERDOB: Community SUPPLEMENT [facility] [id number] Hospital Number: Repository [id number] Date:2566-37-89RBGJU SENIOR SUPPLEMENT [address] [place] [address]FE: 07/09/2017 Tertiary NOT GIVENUNK [place] Insurance:SELF PAY [facility] Hospital Number: Effective Repository Date:2017-07-09 06/05/2017 EDWARD E Primary EDWARD E [place] [id number] Insurance:MEDICARE MILLERDOB: Community [place] [employer] [facility] [id number] [place] Number: Repository [id number]: 330 [id number] [phone] () Date:2017-02-02 06/05/2017 Secondary EDWARD E [place] Insurance:AETNA SR MILLERDOB: Community SUPPLEMENT [facility] [id number] Hospital Number: Repository [id number] Date:5384-78-81PESJH SENIOR SUPPLEMENT [address] [place] [address]GJ: 06/05/2017 Tertiary NOT GIVENUNK [place] Insurance:SELF PAY [facility] Number: Effective Repository Date:2017-06-05 06/03/2017 Edward E Primary WESLEY E [place] [id number] Insurance:MEDICARE MILLERDOB: Community [place] PART [facility] [id number] [place] Number: Repository [id number]: 330 [id number] [phone] (HP) Date:2017-06-03 06/03/2017 Secondary EDWARD E [place] Insurance:AETNA SR MILLERDOB: Community SUPPLEMENT [facility] [id number] Hospital Number: Repository [id number] Date:[id number] SENIOR SUPPLEMENT [id number] [place] [id number]: 06/03/2017 Tertiary NOT GIVENUNK [place] Insurance:SELF PAY [facility] Effective Repository Date:2017-06-03 04/15/2017 Edward E Primary WESLEY E [place] [id number] Insurance:MEDICARE MILLERDOB: [place] [facility] [place] [facility] [id number] [id number]: [phone] [id number] [phone] () Date:2017-04-15 04/15/2017 Secondary EDWARD E [place] Insurance:AETNA SR MILLERDOB: Community SUPPLEMENT [facility] [id number] Hospital Number: Repository [id number] Date:[id number] SENIOR SUPPLEMENT [id number] [place] [id number]: 04/15/2017 Tertiary NOT GIVENUNK [place] Insurance:SELF PAY [facility] Number: Effective Repository Date:2017-04-15 03/27/2017 Edward E Primary WESLEY E [place] [id number] Insurance:MEDICARE MILLERDOB: [place] PART [facility] [id number] [id number]: [phone] [id number] [phone] () Date:2017-03-27 03/27/2017 Secondary EDWARD E [place] Insurance:AETNA SR MILLERDOB: Community SUPPLEMENT [facility] [id number] Hospital Number: Repository [id number] Date:[id number] SENIOR SUPPLEMENT [id number] [place] [id number]: 03/27/2017 Tertiary NOT GIVENUNK [place] Insurance:SELF PAY [facility]: Effective Repository Date:2017-03-27
== END ==
PROVIDERS: Family Provider Family Medicine; PCP Family Medicine; Referring Provider Urology; Visit Provider Urology
DX: Z12.5 Encounter for screening for malignant neoplasm of prostate (principal)
CPT/HCPCS: 36415; 84153; G0103

== ENCOUNTER → 2018-02-26 09:21 | Outpatient (CLI) | payer MEDICARE, OTHER, SELFPAY ==
[2018-02-26 11:22] LABS: Hemoglobin A1c 6.5 % (4.2-6.3)
[2018-02-26 11:26] LABS: BUN 23 mg/dL (7-18); Creatinine, Serum 0.95 mg/dL (0.70-1.30); Glucose 118 mg/dL (74-106)
[2018-02-26 11:27] LABS: ALB/GLOB Ratio 1.2 RATIO (0.9-2.4); AST(SGOT) 15 U/L (15-37); Alanine Aminotransfer ALT/SGPT 23 U/L (16-61); Albumin, Serum 3.5 g/dL (3.2-5.0); Alkaline Phosphatase 82 U/L (45-117); Anion Gap 10 (5-15); BUN/Creat Ratio 24.1 RATIO (10-20); Calcium,Total 8.6 mg/dL (8.5-10.1); Chloride 107 mmol/L (98-107); EST Glomerular Filtration Rate 82 mL/min (>60); Est Glom Filt Rate - Afr Amer 99 mL/min (>60); Potassium 4.2 mmol/L (3.5-5.1); Protein, Total 6.5 g/dL (6.4-8.2); Sodium Level 143 mmol/L (136-145); Thyroid Stim Hormone (TSH) 1.41 uIU/mL (0.358-3.74)
== END ==
PROVIDERS: Family Provider Family Medicine; PCP Family Medicine; Referring Provider Internal Medicine Endocrinology, Diabetes & Metabolism; Visit Provider Internal Medicine Endocrinology, Diabetes & Metabolism
DX: E11.9 Type 2 diabetes mellitus without complications (principal); E03.8 Other specified hypothyroidism
CPT/HCPCS: 36415; 80053; 83036; 84443

== ENCOUNTER → 2018-03-03 15:38 | Outpatient (CLI) | payer MEDICARE, OTHER, SELFPAY ==
[2017-11-18 13:20] VITALS: BMI 27.0
== END ==
PROVIDERS: Family Provider Family Medicine; PCP Family Medicine; Referring Provider Otolaryngology Otolaryngology/Facial Plastic Surgery; Visit Provider Otolaryngology Otolaryngology/Facial Plastic Surgery
DX: J32.9 Chronic sinusitis, unspecified (principal); J02.9 Acute pharyngitis, unspecified
CPT/HCPCS: 87070

== ENCOUNTER → 2018-05-12 11:30 | Outpatient (CLI) | payer MEDICARE, OTHER, SELFPAY ==
[2017-11-18 13:20] VITALS: BMI 27.0
== END ==
PROVIDERS: Family Provider Family Medicine; PCP Family Medicine; Referring Provider Otolaryngology Otolaryngology/Facial Plastic Surgery; Visit Provider Otolaryngology Otolaryngology/Facial Plastic Surgery
DX: J32.9 Chronic sinusitis, unspecified (principal)
CPT/HCPCS: 87070; 87205

== ENCOUNTER → 2018-05-25 12:22 | Outpatient (CLI) | payer MEDICARE, OTHER, SELFPAY ==
--- NOTE | 2018-05-25 12:26 | CT_ITS ---
STUDY: CT MAXILLOFACIAL SINUSES REASON FOR EXAM: Male, 72 years old. Sinusitis RADIATION DOSAGE (If Supplied By Facility): CTDIvol = ( 33.06 ) mGy, DLP = ( 891.7 ) mGycm TECHNIQUE: The patient was scanned in a multi detector CT scanner. High resolution axial imaging was performed without the administration of intravenous contrast material. Sagittal and coronal images were reconstructed. Individualized dose optimization techniques were used for this CT. COMPARISON: Sinus x-ray 10/04/2014. FINDINGS: FRONTAL SINUSES: Normal aeration, without mucosal inflammatory disease. ETHMOIDAL SINUSES: Normal aeration, without mucosal inflammatory disease. MAXILLARY SINUSES: Normal aeration, without mucosal inflammatory disease. SPHENOIDAL SINUSES: Normal aeration, without mucosal inflammatory disease. There is patency of the bilateral maxillary infundibuli with normal uncinate processes, ethmoid bullae, and hiatus semilunaris. Normal bilateral middle turbinates. Normal bilateral inferior turbinates. Normal midline nasal septum. There is patency of the bilateral nasal airways. The visualized osseous structures are normal. The visualized bilateral orbital contents are normal. CT/Sinus/Facial Bone IMPRESSION: Normal CT examination of the maxillofacial sinuses. Electronically Signed: Preeti Hollingsworth, at 16:56 EDT Tel , Service support ,
== END ==
PROVIDERS: Family Provider Family Medicine; PCP Family Medicine; Referring Provider Otolaryngology Otolaryngology/Facial Plastic Surgery; Visit Provider Otolaryngology Otolaryngology/Facial Plastic Surgery
DX: J32.9 Chronic sinusitis, unspecified (principal)
CPT/HCPCS: 70486

== ENCOUNTER 2018-05-28 17:00 | Outpatient (RCR) | payer MEDICARE, OTHER, SELFPAY ==
--- NOTE | 2018-04-08 14:40 | HP.PTEVAL ---
Patient's Visit Information NITISH MUNOZ is a 72 year old M referred to Physical Therapy by Shekhar Arana MD with a diagnosis of BPPV. Date of Evaluation: 04/08/18 Physical Therapist: Justice Barrett DPT, OCS, CSCS - Visit Plan Frequency: 1-2x /Week Duration: 2-4 Weeks Plan: 1-2x/week for 2-4 weeks for positional treatments adn ensure return of balance - Subjective Findings: fell Feb 27 and banged head, passed out form dehydration. Blood sugar was Ok at the hospital. In hospital for two days and heart monitor adn scan and did not find much. Lying down now causes spinning for a minute or so. Hasn't done a lot as he was resting from concussion. No dizzyness when not spinning, only spins when lying down. Feels normal in between bouts. Gets FOWLER intermittently form concussion. Seeing [facility] geriatritian. Sleeping is Ok when not spinning. 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 Has not done his morning ex routine lately consisting of isosymetric ex describing bugs. Basic aDLs are good adn started driving last weekend adn did OK. - Objective Walks to [facility] room well and without AD. Transfers I. FGA is normal for his age, missing points for head moving. c/s aROM WNL and no pain, hesitant to look up. - R hallpike, + L hallpike for up torsional nystagmus 10 second. L Neto treated then - Hallpike naima. - Balance Scores Functional Gait Assessment Score: 25 % Disability: 16.6700 CATSIB Score (Max score 120 seconds): 120 - Goals Goal 1:: Abolish dizzyness in bed at night. Goal Time Frame: 2-4 Weeks Goal 2:: pateint back to normal activities 95% improved. Goal Time Frame: 2-4 Weeks - Rehabilitation Potential Physical Therapy Diagnosis: BPPV Rehabilitation Potential: Fair - Anticipated Interventions Patient/Client Instruction: Educate patient on: Condition, Plan of Care For the Purpose of:: To increase tolerance to activity/condition/position Comment: Positional treatments and exercises For the Purpose of:: To increase tolerance to activity/condition/position Thank you for the opportunity to evaluate your patient. For Medicare and Medicare HMO plans, please review the plan of care and approve it. It will need to be FAXED BACK to us at [phone] for Medicare purposes. For Medicare only, by signing this I certify the plan of care. Please let me know if there are questions or concerns regarding this plan of care. Physician Signature: Date:
--- NOTE | 2018-05-15 08:42 | HP.PTREVAL ---
Shekhar Arana MD, It has been my pleasure to treat NITISH MUNOZ over the last 5 visits for BPPV. Please see the progress note below for an update on the physical therapy plan of care! Subjective: fELT SIGNIFICANTLY BETTER FRO THE FIRST 5 DAYS AFTER LAST SESSION Last couple days have been worse. Ray doing BD at home and R sidelying makes him dizzy and L does not. Also got worse getting out of bed. Was 98% better until Friday and now 80%. Has sinus infection and Zainab gave him 10 days of meds. Will have Catscan of sinus next week and f/u with Zainab. Objective/Function: One beat up torsional nystagmus with R hallpike today. Walking well. Better overall but not as good as was just after previous visit. was doing only one rep of HEP Plan Plan: f/u two weeks and then weekly as needed for 2-4 weeks after course of antibiotics. Pt to do BD 8 reps daily starting tomorrow. Recheck positional next session and subjective. Goals still appropriate with fair prognosis. Goals Goal 1:: Abolish dizzyness in bed at night. Goal Time Frame: 2-4 Weeks Goal Progress: Goal Met Goal 2:: pateint back to normal activities 95% improved. Goal Time Frame: 2-4 Weeks Goal Progress: Progressing Anticipated Interventions Patient/Client Instruction: Educate patient on: Condition, Plan of Care For the Purpose of:: To increase tolerance to activity/condition/position Comment: Positional treatments and exercises For the Purpose of:: To increase tolerance to activity/condition/position Please do not hesitate to contact me at [phone] by phone or if you have questions or concerns regarding this new plan of care! Sincerely, Justice Barrett, DPT, OCS, CSCS
--- NOTE | 2018-05-28 17:11 | HP.PTDCSUM ---
HP - PT D/C Summary It has been my pleasure to treat NITISH MUNOZ under orders from Shekhar Arana MD, for the diagnosis of BPPV for a total of 6 visit(s). Discharge Date: 05/28/18 Please see the following information for a summary of their discharge status. - Subjective Subjective: Scan of sinus was normal. Antibiotics over and seemed to help. Was a little dizzy Friday , did exercises. Doing BD regularly. R still makes dizzy first 3x. No f/u with doctor. Sleeping OK. activities are good except exercises situps is avoiding. Working in yard without an issue. Fatigues quickly but not dizzy. No problems with balance. - Overall Improvement % Improvement: 95 - Objective Objective/Function: balance appears good. is +3. - B hallpike, - roll test. Walking normal. OVERALL MUCH BETTER AND ABLE TO COTNINUE ON HIS OWN. - Goals Goal 1:: Abolish dizzyness in bed at night. Goal Progress: Goal Met Goal 2:: pateint back to normal activities 95% improved. Goal Progress: Progressing - Plan Plan: D/c - D/C Information Discharge Comments: Pt doing well and will contact doctor if worsens again. If there are questions or concerns regarding this patient's physical therapy, please feel free to call me at [phone]. Thank you for the referral of this patient. Sincerely, Justice Barrett, DPT, OCS, CSCS
== END 2018-05-28 19:00 | disposition home or self-care (01) ==
LOC: PT 17:00
PROVIDERS: Family Provider Family Medicine; PCP Family Medicine; Referring Provider Family Medicine; Visit Provider Family Medicine
DX: S06.0X9D Concussion with loss of consciousness of unspecified duration, subsequent encounter (principal); W19.XXXD Unspecified fall, subsequent encounter
CPT/HCPCS: 97161; 97530

== ENCOUNTER → 2018-06-10 09:38 | Outpatient (CLI) | payer MEDICARE, OTHER, SELFPAY ==
[2018-06-05 09:47] VITALS: BMI 28.0
[2018-06-10 11:40] LABS: ALB/GLOB Ratio 1.2 RATIO (0.9-2.4); AST(SGOT) 17 U/L (15-37); Alanine Aminotransfer ALT/SGPT 20 U/L (16-61); Albumin, Serum 3.7 g/dL (3.2-5.0); Alkaline Phosphatase 85 U/L (45-117); Anion Gap 8 (5-15); BUN 19 mg/dL (7-18); BUN/Creat Ratio 22.8 RATIO (10-20); Calcium,Total 8.8 mg/dL (8.5-10.1); Chloride 104 mmol/L (98-107); Cholesterol 175 mg/dL (200); Creatinine, Serum 0.83 mg/dL (0.70-1.30); EST Glomerular Filtration Rate 96 mL/min (>60); Est Glom Filt Rate - Afr Amer 116 mL/min (>60); Globulin 3.1 g/dL (2.2-4.2); Glucose 134 mg/dL (74-106); High Density Lipoprotein 67 mg/dL; Protein, Total 6.8 g/dL (6.4-8.2); Sodium Level 139 mmol/L (136-145); Thyroid Stim Hormone (TSH) 2.14 uIU/mL (0.358-3.74); Triglycerides 42 mg/dL; Very Low Density Lipoprotein 8 mg/dL (5-40)
[2018-06-10 11:42] LABS: Hemoglobin A1c 6.6 % (4.2-6.3)
== END ==
PROVIDERS: Family Provider Family Medicine; PCP Family Medicine; Referring Provider Internal Medicine Endocrinology, Diabetes & Metabolism; Visit Provider Internal Medicine Endocrinology, Diabetes & Metabolism
DX: E11.9 Type 2 diabetes mellitus without complications (principal); E78.00 Pure hypercholesterolemia, unspecified; E03.8 Other specified hypothyroidism
CPT/HCPCS: 36415; 80053; 80061; 83036; 84443

== ENCOUNTER → 2018-10-07 07:13 | Outpatient (CLI) | payer MEDICARE, OTHER, SELFPAY ==
[2018-06-05 09:47] VITALS: BMI 28.0
[2018-10-07 08:02] LABS: ALB/GLOB Ratio 1.1 RATIO (0.9-2.4); AST(SGOT) 12 U/L (15-37); Alanine Aminotransfer ALT/SGPT 18 U/L (16-61); Albumin, Serum 3.6 g/dL (3.2-5.0); Alkaline Phosphatase 93 U/L (45-117); Anion Gap 7 (5-15); BUN 21 mg/dL (7-18); BUN/Creat Ratio 22.7 RATIO (10-20); Calcium,Total 8.9 mg/dL (8.5-10.1); Chloride 106 mmol/L (98-107); Creatinine, Serum 0.92 mg/dL (0.70-1.30); EST Glomerular Filtration Rate 85 mL/min (>60); Est Glom Filt Rate - Afr Amer 103 mL/min (>60); Globulin 3.2 g/dL (2.2-4.2); Glucose 145 mg/dL (74-106); Protein, Total 6.8 g/dL (6.4-8.2); Sodium Level 141 mmol/L (136-145)
[2018-10-07 09:00] LABS: Hemoglobin A1c 6.5 % (4.2-6.3)
== END ==
PROVIDERS: Family Provider Family Medicine; PCP Family Medicine; Referring Provider Internal Medicine Endocrinology, Diabetes & Metabolism; Visit Provider Internal Medicine Endocrinology, Diabetes & Metabolism
DX: E11.9 Type 2 diabetes mellitus without complications (principal)
CPT/HCPCS: 36415; 80053; 83036

== ENCOUNTER → 2018-11-12 16:02 | Outpatient (CLI) | payer MEDICARE, OTHER, SELFPAY ==
[2018-06-05 09:47] VITALS: BMI 28.0
== END ==
PROVIDERS: Family Provider Family Medicine; PCP Family Medicine; Referring Provider Urology; Visit Provider Urology
DX: R82.998 Other abnormal findings in urine (principal)
CPT/HCPCS: 87086

== ENCOUNTER → 2018-11-28 09:00 | Outpatient (CLI) | payer MEDICARE, OTHER, SELFPAY ==
[2018-11-28 05:56] VITALS: BMI 28.0
--- NOTE | 2018-11-28 09:00 | LIP_PTH ---
PATIENT: NITISH MUNOZ LOC: [facility] U#:[id number] AGE/SX: 79/M ROOM: RE11/28/[address]: Dr. Darren Harman MD : 1945 BED: DIS: SPEC #: [id number] RECD: 11/30/18 07:38 STATUS: MARILU JAMAAL #: [id number] MARIA ISABEL: 11/28/18 09:[address]: Darren Harman DEPT: SURGICAL PATHOLOGY RECD BY: William Alicea ENTERED: 11/30/18 09:45 SP TYPE: LIPOMA OTHR DR: Dr. Shekhar Arana MD Tissues: Soft tissues, NOS Procedures: Surgery Specimen Level III HEADER OPERATION: Excision left forearm lipoma PRE-OP DIAGNOSIS: Left forearm lipoma TISSUE SUBMITTED: Left forearm tissue (lipoma) MICROSCOPIC DIAGNOSIS Left forearm lipoma, excision: Mature adipose tissue, consistent with lipoma. SJ:kenny 12/01/18 MICROSCOPIC DESCRIPTION Slides are reviewed. GROSS DESCRIPTION Received in fixative is one container labeled with the patient's name and designated left forearm. The specimen consists of a piece of yellow adipose tissue measuring 1.5 x 1 x 0.3 cm. The specimen is bisected and submitted entirely in one cassette. / SJ:rg 11/30/18 TC:1 CPT: 93857
== END ==
PROVIDERS: Family Provider Family Medicine; PCP Family Medicine; Referring Provider Surgery; Visit Provider Surgery
DX: D17.22 Benign lipomatous neoplasm of skin and subcutaneous tissue of left arm (principal)
CPT/HCPCS: 88304

== ENCOUNTER → 2019-03-22 07:25 | Outpatient (CLI) | payer MEDICARE, SELFPAY ==
[2018-12-03 15:20] VITALS: BMI 28.0
--- NOTE | 2019-03-22 08:11 | RAD_ITS ---
STUDY: X-RAY CHEST REASON FOR EXAM: Male, 73 years old. States he has been dealing with cough for 2-3 weeks, did a round of antibiotics and now having chest heaviness and still has cough TECHNIQUE: PA and lateral views of the chest. COMPARISON: 09/24/2014 FINDINGS: Stable hyperinflation. There is no focal parenchymal abnormality. There is no demonstrated pleural abnormality. Normal size heart. Normal mediastinum and radha. Normal visualized pulmonary arteries. Normal visualized aortic arch and descending thoracic aorta. Age-appropriate thoracic spine. Normal visualized ribs, clavicles, and shoulders. There is no demonstrated abnormality of the visualized soft tissue structures of the upper abdomen. RAD/Chest PA and Lateral IMPRESSION: Stable hyperinflation with component of COPD suspected. No pulmonary edema, congestive heart failure or confluent pneumonia. Electronically Signed: Alejandra Forman MD at 3:06 EST , Service support ,
== END ==
LOC: HPRAD 07:36
PROVIDERS: PCP Family Medicine; Referring Provider Family Medicine; Visit Provider Family Medicine
DX: J15.9 Unspecified bacterial pneumonia (principal)
CPT/HCPCS: 71046

== ENCOUNTER → 2019-05-10 09:45 | Outpatient (CLI) | payer MEDICARE, OTHER, SELFPAY ==
[2018-12-03 15:20] VITALS: BMI 28.0
[2019-05-10 12:14] LABS: PSA,Total- Diagnostic 0.11 ng/mL (0.0-4.0)
== END ==
PROVIDERS: PCP Family Medicine; Referring Provider Urology; Visit Provider Urology
DX: N40.1 Benign prostatic hyperplasia with lower urinary tract symptoms (principal)
CPT/HCPCS: 36415; 84153

== ENCOUNTER → 2019-08-06 | Outpatient (CLI) | payer MEDICARE, OTHER, SELFPAY ==
[2019-06-04 09:54] VITALS: BMI 27.1
== END | disposition home or self-care (01) ==
LOC: LABSPEC 12:02
PROVIDERS: PCP Family Medicine; Referring Provider Otolaryngology; Visit Provider Otolaryngology
DX: Z11.59 Encounter for screening for other viral diseases (principal)
CPT/HCPCS: 87635; G2023; U0003

== ENCOUNTER → 2019-09-13 10:51 | Outpatient (CLI) | payer MEDICARE, OTHER, SELFPAY ==
[2019-06-04 09:54] VITALS: BMI 27.1
[2019-09-13 12:07] LABS: Absolute Lymphocyte Count 0.98 X10^3/uL (0.83-4.51); Absolute Neutrophil Count 2.6 X10^3/uL (2.0-7.7); Basophil# 0.01 X10^3/uL; Basophil% 0.3 % (0-1); Eosinophil# 0.04 X10^3/uL; Hematocrit 35.1 % (40-54); Hemoglobin 12.2 g/dL (13.0-16.5); Lymphocyte # 0.98 X10^3/ul (4.0); Lymphocyte % 24.7 % (19-41); Mean Corp Hgb Conc 34.8 g/dL (32-36); Mean Corpuscular Hgb 33.1 pg (27.0-32.0); Mean Corpuscular Volume 95.1 fL (80-94); Mean Platelet Vol. 9.3 fl (6.2-12.0); Monocyte% 7.6 % (0-10); NRBC Flagged by Analyzer 0.5 % (0-5); Neutrophil # 2.59 X10^3/uL (2.7-7.7); Neutrophil % 65.4 % (47-70); Platelet Count 170 K/mm3 (150-450); RBC Distribution Width CV 12.6 % (11.6-14.6); RBC Distribution Width SD 43.8 fl (35.1-43.9); Red Blood Count 3.69 M/mm3 (4.6-6.2)
[2019-09-13 12:21] LABS: Vitamin D,25 Hydroxy 61.8 ng/mL
[2019-09-13 12:32] LABS: Anion Gap 4 (5-15); BUN 22 mg/dL (7-18); BUN/Creat Ratio 24.8 RATIO (10-20); Calcium,Total 8.9 mg/dL (8.5-10.1); Chloride 104 mmol/L (98-107); Creatinine, Serum 0.89 mg/dL (0.70-1.30); EST Glomerular Filtration Rate 89 mL/min (>60); Est Glom Filt Rate - Afr Amer 108 mL/min (>60); Glucose 135 mg/dL (74-106); Sodium Level 138 mmol/L (136-145); T4 Free Direct 1.18 ng/dL (0.76-1.46); Thyroid Stim Hormone (TSH) 1.31 uIU/mL (0.358-3.74)
== END ==
PROVIDERS: PCP Family Medicine; Visit Provider Family Medicine
DX: E11.9 Type 2 diabetes mellitus without complications (principal); E55.9 Vitamin D deficiency, unspecified; F32.9 Major depressive disorder, single episode, unspecified; E03.9 Hypothyroidism, unspecified
CPT/HCPCS: 36415; 80048; 82306; 84439; 84443; 85025

== ENCOUNTER → 2019-11-30 | Outpatient (CLI) | payer MEDICARE, OTHER, SELFPAY ==
[2019-11-29 09:14] VITALS: BMI 27.1
== END | disposition home or self-care (01) ==
LOC: LABSPEC 14:02
PROVIDERS: PCP Family Medicine; Referring Provider Surgery; Visit Provider Surgery
DX: D64.9 Anemia, unspecified (principal)
CPT/HCPCS: 82274

== ENCOUNTER 2019-12-24 05:53 | Day surgery (SDC) | payer MEDICARE, OTHER, SELFPAY ==
[2019-11-29 09:14] VITALS: BMI 27.1
[2019-12-24] VITALS (10 sets, daily range): BP systolic 115–146; BP diastolic 64–91; PULSE 16–82; RESP 16–97; TEMP 36.1–36.6; O2SAT 97–100; BMI 27.0
[2019-12-24] MEDS: Lactated Ringers 1,000 ML 100 ML IV ×2 (06:29→07:30)
--- NOTE | 2019-12-24 06:51 | HP.PCM_ITS ---
Problem List (1) Chronic anemia Status: Chronic History and Physical Date of Admission: 12/24/19 Intake Visit Reasons: CSCOPE/ EGD Chief Complaint: c-scope/egd Printer Assistant Required: No Is patient in pain?: No Allergies cefaclor [From Ceclor] Allergy (Verified 11/29/19 09:13) Unknown nortriptyline Allergy (Verified 11/29/19 09:13) Unknown Penicillins Allergy (Verified 11/29/19 09:13) blisters on feet alfuzosin [From Uroxatral] Adverse Reaction (Verified 11/29/19 09:13) Unknown esomeprazole [From Nexium] Adverse Reaction (Verified 11/29/19 09:13) Itching lansoprazole [From Prevacid] Adverse Reaction (Verified 11/29/19 09:13) Upset Stomach METAL Allergy (Uncoded 11/29/19 09:13) Rash Medications Azelastine HCl [Astelin] 1 spray NASAL BID PRN PRN 11/23/15 [History Confirmed 11/29/19] Finasteride [Proscar] 5 mg PO DAILY 11/23/15 [History Confirmed 11/29/19] Levothyroxine [Synthroid] 88 mcg PO DAILY 11/23/15 [History Confirmed 11/29/19] Paroxetine HCl [Paxil] 30 mg PO DAILY 01/01/16 [History Confirmed 11/29/19] Cholecalciferol (Vitamin D3) [Vitamin D3] 2,000 unit PO DAILY 04/25/16 [History Confirmed 11/29/19] Pumpkin Seed Oil/Saw Patterson [Saw Patterson 160 mg Softgel] 160 mg PO DAILY 04/25/16 [History Confirmed 11/29/19] multivitamin 1 tab PO DAILY 06/05/18 [History Confirmed 11/29/19] cimetidine 300 mg tablet 300 mg PO QACHS 11/29/19 [History Confirmed 11/29/19] magnesium 250 mg tablet 500 mg PO QDAY tab 11/29/19 [History Confirmed 11/29/19] PFSH Medical History Premature ventricular contractions (Chronic) Bradycardia (Chronic) Fibromyalgia (Chronic) GERD (gastroesophageal reflux disease) (Chronic) Lipoma (Chronic) Skin lesion (Chronic) Surgical History History of cholecystectomy (Resolved) History of prostate surgery (Resolved) History of testicular mass excision (Resolved) History of tonsillectomy and adenoidectomy (Resolved) Hx of colonoscopy (Resolved) Family History Father Diabetes Afib pacemaker Mother Heart disease Hx CHF Hypertension Social History (Updated 11/29/19 @ 09:[address] Darren Harman MD) Smoking Status: Never smoker alcohol intake: never substance use type: does not use caffeine: Yes Type: carbonated beverages what type of physical activity do you participate in: none seatbelt use: always do you feel safe at home: Yes HPI HPI HPI: NITISH MUNOZ, is a 74 M who presents to the office today for surgical consultation regarding some mild epigastric discomfort as well as an intermi ttent anemia. September 12 at the [facility] a white count of 4000 with a he will 12.2 hematocrit 35.1 platelet count 170,000. BUN was 22 and creatinine 0.89. The patient intermittently notices some darker stools. He claims that over several years he is had problems with anemia. He is not currently on any iron replacement. He is not on any anticoagulants. He denies abdominal pain. No chest pain no shortness of breath. April 29, 2016 Dr. Willett performed a combined upper and lower endoscopy. H. pylori was negative. There was some gastritis of the gastric antrum. There was some reflux esophagitis with chronic inflammation but no evidence of Johnson's. In addition the patient had a tubular adenoma of the distal sigmoid. The patient states that he is also previously had colon polyps detected. He denies family history of colon cancer. He is on cimetidine 300 mg nightly. He is not on any gastric irritants. In the recent past he has had some trouble with vertigo. He did had a spell when he became syncopal which then resulted in some fractures of his foot which are being treated nonoperatively and by his report are improving It is of additional note that he reminds me that I have assisted him previously with a laparoscopic cholecystectomy HPI HPI HPI: NITISH MUNOZ, is a 74 M who presents to the office today for ROS General General: No weight change, appetite, fatigue, colon cancer, breast cancer or weakness HEENT HEENT: No difficulty swallowing, eye injury, eye surgery, swollen glands or hoarseness Endo Endocrine: No thyroid disease, diabetes mellitus, thyroid cancer, Hair loss, heat intolerance or cold intolerance Skin Skin: No rash or changing moles Breast Breast: No left breast lump, right breast lump, nipple discharge, breast pain, abnormal mammogram, abnormal US or breast enlargement Musc Musculoskeletal: Yes back problems; no arthritis, rheumatoid arthritis, gout or joint pain Cardio Cardiovascular: No murmur, pacemaker, heart disease, atrial fibrillation, high blood pressure, heart attack, heart stent, palpitations, shortness of breat with exertion or chest pain Psych Psychiatric: No depression, anxiety or hearing voices Resp Respiratory: No shortness of breath, No sleep apnea, No cough, No COPD, No asthma, No emphysema, No wheezing Gastro Gastrointestinal: No abdominal pain, No nausea or vomiting, No diarrhea, No constipation, No blood in stool, Yes acid reflux, No hemorrhoids, Yes ulcers, Yes gallbladder problem, No black,tarry stools Sherwin Hematologic: No blood thinners, No blood disorders, No bleeding, No anemia, No blood clots Neuro Neurologic: No system reviewed and no additional complaints, except as docu, No as per HPI, No abnormal walking, No abnormal hearing, No abnormal movements, No abnormal speech, No behavioral changes, No burning sensations, No confusion, No seizure-like activity, No unsteadiness, No dizziness, No localized weakness, No frequent falls, No headache(s), No lack of coordination, No loss of vision, No memory loss, No numbness, No other visual disturbances, No radiating pain, No restless legs, No sensory deficit, No fainting, No tingling, No tremor(s), No weakness, No other Exam Const General: cooperative, healthy appearing, comfortable, no acute distress Nutritional Appearance: average body habitus Orientation: alert, awake [facility] Head: normal to inspection Eyes General: appearance normal, both eyes and all related structures Chest Breast Palpation: No nipple discharge Resp Effort & Inspection: normal respiratory effort Auscultation: clear to auscultation bilaterally Cardio Rate: regular rate Rhythm: regular rhythm Heart Sounds: no murmurs GI Palpation: soft, no hepatosplenomegaly Auscultation: normal bowel sounds Musc Cervical Spine: normal cervical lordosis Neuro Cognition: normal cognition Extrem General: no calf tenderness Psych Affect: normal affect Assessment & Plan Problems 1. Chronic anemia D64.9 Plan Some intermittent epigastric pain as well as chronic anemia. Personal history of colon polyps. Most recent colonoscopy April 2016. I recommend a combined esophagogastroduodenoscopy with possible biopsy and colonoscopy with possible biopsy or polypectomy as indicated. He is aware of the technique, benefit, risk and alternatives. I also recommend proceeding with stool for Hemoccult. He has had an opportunity to ask and have questions answered. We will schedule and proceed as noted. Appreciate the opportunity of assisting with his surgical care Copy: Dr. Shekhar Harman M.D., F.A.C.S. I have re-examined the patient. There are no clinical changes since date of exam. Procedure Criteria Procedure Type: Elective COVID Risk Discussion: The surgeon/proceduralist and patient have discussed in detail the risk of exposure to and/or potential harm posed by the COVID-19 virus with having a surgery/procedure at this time versus the risk of delaying the surgery/procedure. It is not possible to know either the risk of delaying the surgery or procedure or chance of getting an infection with perfect accuracy, but a joint decision was made between the patient and the surgeon/proceduralist to proceed at this time with the scheduled surgery/procedure as indicated on the consent form.
--- NOTE | 2019-12-24 07:00 | IMM_PTH ---
PATIENT: NITISH MUNOZ LOC: [facility] U#:[id number] AGE/SX: 74/M ROOM: RE12/24/[address]: Dr. Darren Harman MD : 1945 BED: DIS: 12/24/2019 SPEC #: [id number] RECD: 12/24/19 14:04 STATUS: MARILU REJeanie #: [id number] MARIA ISABEL: 12/24/19 07:[address]: Darren Harman DEPT: IMMUNOHISTOCHEMISTRY RECD BY: Karen Mcmullen ENTERED: 12/24/19 14:05 SP TYPE: IMMUNO OTHR DR: Dr. Shekhar Arana MD Tissues: A - Stomach, NOS Procedures: H Pylori (initial) PHYSICIAN & INSTITUTION [place] [id number] SPECIMEN INFORMATION: Tissue Source: A - Antrum biopsy Clinical Info: Chronic anemia Specimen Number: [id number] CPT code: 47330 METHODOLOGY: Deparaffinized sections of prefer/formalin-fixed tissue or PAP/DQ stained slides are incubated with monoclonal/polyclonal antibodies/oligonucleotide probes. Localization is made via biotin free immunoperoxidase method. Appropriate controls are performed and reacted as expected. Results on target cell population are indicated in the following table: RESULTS: ANTIBODY / CLONE RESULT Block A H Pylori (polyclonal) negative These tests were developed and their performance characteristics determined by [facility]. They may not have been cleared or approved by the U.S. Food and Drug Administration. The FDA has determined that such clearance or approval is not necessary. INTERPRETATION: A. Antrum biopsy: Negative for Helicobacter pylori organisms. AM:kenny 12/28/19
--- NOTE | 2019-12-24 07:00 | COLBX_PTH ---
PATIENT: NITISH MUNOZ LOC: [facility] U#:[id number] AGE/SX: 74/M ROOM: RE12/24/[address]: Dr. Darren Harman MD : 1945 BED: DIS: 12/24/2019 SPEC #: [id number] RECD: 12/24/19 11:40 STATUS: MARILU JAMAAL #: [id number] MARIA ISABEL: 12/24/19 07:[address]: Darren Harman DEPT: SURGICAL PATHOLOGY RECD BY: William Alicea ENTERED: 12/24/19 12:29 SP TYPE: COLON BX OTHR DR: Dr. Shekhar Arana MD Tissues: A - Gastric mucous membrane B - Stomach, NOS C - Esophagus, NOS D - Sigmoid colon biopsy Procedures: Special Stain Group II Surgery Specimen Level IV Alcian Blue/PAS (control) HEADER OPERATION: Colonoscopy, EGD ([facility]) PRE-OP DIAGNOSIS: Chronic anemia TISSUE SUBMITTED: A - Antrum biopsy for H. pylori and path, B - Greater curvature polyp biopsy, C - Distal esophagus biopsies, D - Mid sigmoid polyp MICROSCOPIC DIAGNOSIS A. Gastric antrum, biopsy: Chronic gastritis. See comment. B. Gastric polyp, greater curvature, biopsy: Fundic gland polyp. C. Distal esophagus, biopsy: Fragments of benign squamous mucosa. Fragments of junctional mucosa with mild chronic inflammation. No evidence of goblet cell metaplasia. See comment. D. Mid sigmoid colon polyp, biopsy: Fragments of tubular adenoma. AM:kenny 12/27/19 COMMENT A. The results of immunohistochemistry for Helicobacter pylori will be reported separately ([id number]). C. Alcian blue/PAS stain with matched control supports the above diagnosis. MICROSCOPIC DESCRIPTION Slides are reviewed. GROSS DESCRIPTION A - Received in fixative is one container labeled with the patient's name and designated antrum biopsy. The specimen consists of one irregular fragment of light wilson soft tissue that measures 0.5 x 0.2 x 0.1 cm. The specimen is totally submitted in one cassette. B - Received in fixative is one container labeled with the patient's name and designated greater curvature polyp. The specimen consists of one irregular fragment of light wilson soft tissue that measures 0.3 x 0.3 x 0.1 cm. The specimen is totally submitted in one cassette. C - Received in fixative is one container labeled with the patient's name and designated distal esophagus biopsy. The specimen consists of multiple irregular fragments of light wilson soft tissue that in aggregate measure 1.5 x 0.3 x 0.1 cm. The specimen is totally submitted in one cassette. D - Received in fixative is one container labeled with the patient's name and designated mid sigmoid polyp. The specimen consists of multiple irregular fragments of light wilson soft tissue that in aggregate measure 1.5 x 0.6 x 0.3 cm. The specimen is totally submitted in one cassette. / SJ:kenny 12/24/19 TC:3 CPT: 95162 x4, 20742
--- NOTE | 2019-12-24 07:46 | OP.CCLET_ITS ---
12/24/2019 Shekhar Arana Re : Upper GI endoscopy procedure for Chance Troncoso Dear Yasmeen This procedure was performed on Tuesday, December 24, 2019. My impressions and recommendations are as follows: Impressions : - Reflux esophagitis. Biopsied. - Small hiatal hernia. - Erythematous mucosa in the antrum. Biopsied. - A few gastric polyps. Resected and retrieved. - Normal examined duodenum. Recommendations : - Discharge patient to home. - Clear liquid diet. - Continue present medications. - Telephone my office for pathology results in 1 week. My findings are described in the full procedure note, which is enclosed. If I can be of further assistance, please feel free to contact me at Doctor phone number(s): Work: . Sincerely, Darren Harman MD 12/24/2019 7:45:22 AM This report has been signed electronically.
--- NOTE | 2019-12-24 07:46 | OP.EGD_ITS ---
Patient Name: Chance Troncoso Procedure Date: 12/24/2019 6:56 AM Date of : 1945 Age: 74 Procedure: Upper GI endoscopy Indications: Iron deficiency anemia Providers: Darren Harman MD Referring MD: Shekhar Arana Medicines: See the Anesthesia note for documentation of the administered medications Complications: No immediate complications. Procedure: Pre-Anesthesia Assessment: - Prior to the procedure, a History and Physical was performed, and patient medications and allergies were reviewed. The patient's tolerance of previous anesthesia was also reviewed. The risks and benefits of the procedure and the sedation options and risks were discussed with the patient. All questions were answered, and informed consent was obtained. Prior Anticoagulants: The patient has taken no previous anticoagulant or antiplatelet agents. ASA Grade Assessment: II - A patient with mild systemic disease. After reviewing the risks and benefits, the patient was deemed in satisfactory condition to undergo the procedure. After obtaining informed consent, the endoscope was passed under direct vision. Throughout the procedure, the patient's blood pressure, pulse, and oxygen saturations were monitored continuously. The Endoscope was introduced through the mouth, and advanced to the second part of duodenum. The upper GI endoscopy was accomplished without difficulty. The patient tolerated the procedure well. Scope In: 7:02:54 AM Scope Out: 7:10:04 AM Total Procedure Duration Time 0 hours 7 minutes 10 seconds Findings: Esophagitis with no bleeding was found 40 cm from the incisors. Biopsies were taken with a cold forceps for histology. A small hiatal hernia was present. Diffuse mildly erythematous mucosa without bleeding was found in the gastric antrum. Biopsies were taken with a cold forceps for histology. A few sessile polyps with no bleeding and no stigmata of recent bleeding were found on the greater curvature of the stomach. The polyp was removed with a cold biopsy forceps. Resection and retrieval were complete. The examined duodenum was normal. Impression: - Reflux esophagitis. Biopsied. - Small hiatal hernia. - Erythematous mucosa in the antrum. Biopsied. - A few gastric polyps. Resected and retrieved. - Normal examined duodenum. Recommendation: - Discharge patient to home. - Clear liquid diet. - Continue present medications. - Telephone my office for pathology results in 1 week. Procedure Code(s): --- Professional --- 97992, Esophagogastroduodenoscopy, flexible, transoral; with biopsy, single or multiple Diagnosis Code(s): --- Professional --- K21.0, Gastro-esophageal reflux disease with esophagitis K44.9, Diaphragmatic hernia without obstruction or gangrene K31.89, Other diseases of stomach and duodenum K31.7, Polyp of stomach and duodenum D50.9, Iron deficiency anemia, unspecified CPT copyright 2017 [employer]. All rights reserved. The codes documented in this report are preliminary and upon criminal profiler review may be revised to meet current compliance requirements. Darren Harman MD 12/24/2019 7:45:22 AM This report has been signed electronically. Number of Addenda: 0 Note Initiated On: 12/24/2019 6:56 AM
--- NOTE | 2019-12-24 07:50 | OP.CCLET_ITS ---
12/24/2019 Shekhar Arana Re : Colonoscopy procedure for Chance Troncoso Dear Yasmeen This procedure was performed on Tuesday, December 24, 2019. My impressions and recommendations are as follows: Impressions : - Very lax anal tone and difficult to keep bowel inflated. Glucagon given IV found on digital rectal exam. - One 22 mm polyp in the mid sigmoid colon, removed with a hot snare. Resected and retrieved. Clip was placed. - Diverticulosis in the sigmoid colon and in the descending colon. Recommendations : - Discharge patient to home. - Clear liquid diet. - Continue present medications. - Telephone my office for pathology results in 1 week. - Repeat colonoscopy in 1 year for surveillance based on pathology results. My findings are described in the full procedure note, which is enclosed. If I can be of further assistance, please feel free to contact me at Doctor phone number(s): Work: . Sincerely, Darren Harman MD 12/24/2019 7:49:44 AM This report has been signed electronically.
--- NOTE | 2019-12-24 07:50 | OP.COLON_ITS ---
Patient Name: Chance Troncoso Procedure Date: 12/24/2019 7:10 AM Date of : 1945 Age: 74 Procedure: Colonoscopy Indications: Iron deficiency anemia Providers: Darren Harman MD Referring MD: Shekhar Arana Medicines: See the Anesthesia note for documentation of the administered medications Patient Profile: Last Colonoscopy: April 2016. Complications: No immediate complications. Procedure: Pre-Anesthesia Assessment: - Prior to the procedure, a History and Physical was performed, and patient medications and allergies were reviewed. The patient's tolerance of previous anesthesia was also reviewed. The risks and benefits of the procedure and the sedation options and risks were discussed with the patient. All questions were answered, and informed consent was obtained. Prior Anticoagulants: The patient has taken no previous anticoagulant or antiplatelet agents. ASA Grade Assessment: II - A patient with mild systemic disease. After reviewing the risks and benefits, the patient was deemed in satisfactory condition to undergo the procedure. After I obtained informed consent, the scope was passed under direct vision. Throughout the procedure, the patient's blood pressure, pulse, and oxygen saturations were monitored continuously. The Colonoscope was introduced through the anus and advanced to the cecum, identified by appendiceal orifice and ileocecal valve. The colonoscopy was technically difficult and complex due to poor endoscopic visualization. The patient tolerated the procedure well. The quality of the bowel preparation was adequate to identify polyps. The ileocecal valve and the appendiceal orifice were photographed. Scope In: 7:12:40 AM Scope Withdrawal Time 0 hours 24 minutes 15 seconds Scope Out: 7:40:32 AM Total Procedure Duration Time 0 hours 27 minutes 52 seconds Findings: The digital rectal exam findings include very lax anal tone and difficult to keep bowel inflated. Glucagon given IV. A 22 mm polyp was found in the mid sigmoid colon. The polyp was multi-lobulated and sessile. The polyp was removed with a hot snare. Resection and retrieval were complete. To prevent bleeding post-intervention, one hemostatic clip was successfully placed. There was no bleeding at the end of the procedure. Multiple diverticula were found in the sigmoid colon and descending colon. Impression: - Very lax anal tone and difficult to keep bowel inflated. Glucagon given IV found on digital rectal exam. - One 22 mm polyp in the mid sigmoid colon, removed with a hot snare. Resected and retrieved. Clip was placed. - Diverticulosis in the sigmoid colon and in the descending colon. Recommendation: - Discharge patient to home. - Clear liquid diet. - Continue present medications. - Telephone my office for pathology results in 1 week. - Repeat colonoscopy in 1 year for surveillance based on pathology results. Procedure Code(s): --- Professional --- 51864, Colonoscopy, flexible; with removal of tumor(s), polyp(s), or other lesion(s) by snare technique Diagnosis Code(s): --- Professional --- D12.5, Benign neoplasm of sigmoid colon D50.9, Iron deficiency anemia, unspecified K57.30, Diverticulosis of large intestine without perforation or abscess without bleeding CPT copyright 2017 [employer]. All rights reserved. The codes documented in this report are preliminary and upon valve grinder review may be revised to meet current compliance requirements. Darren Harman MD 12/24/2019 7:49:44 AM This report has been signed electronically. Number of Addenda: 0 Note Initiated On: 12/24/2019 7:10 AM
== END 2019-12-24 09:24 | disposition home or self-care (01) ==
LOC: EN 05:53 → AC 05:53
PROVIDERS: Anesthesiology; PCP Family Medicine; Referring Provider Family Medicine; Visit Provider Surgery
PROC: 0DJD8ZZ Inspection of Lower Intestinal Tract, Via Natural or Artificial Opening Endoscopic (ICD-10-PCS; CPT 45378; principal; 2019-12-24 06:55)
DX: K21.00 Gastro-esophageal reflux disease with esophagitis, without bleeding (principal); K29.50 Unspecified chronic gastritis without bleeding; K44.9 Diaphragmatic hernia without obstruction or gangrene; K31.7 Polyp of stomach and duodenum; D12.5 Benign neoplasm of sigmoid colon; K57.30 Diverticulosis of large intestine without perforation or abscess without bleeding; D50.9 Iron deficiency anemia, unspecified; I49.3 Ventricular premature depolarization; M79.7 Fibromyalgia; E06.9 Thyroiditis, unspecified; Z86.010 Personal history of colon polyps; Z20.828 Contact with and (suspected) exposure to other viral communicable diseases
CPT/HCPCS: 43239; 45385; 87635; 88305; 88313; 88342; C9803; J7120; J1610; J2405; U0003

== ENCOUNTER 2020-01-28 19:52 | Emergency (ER) | payer MEDICARE, OTHER, SELFPAY ==
[2020-01-04 11:31] VITALS: BMI 27.8
[2020-01-28 19:53] VITALS: BP 130/95; PULSE 98; RESP 16; TEMP 36.6; O2SAT 96; BMI 28.3
--- NOTE | 2020-01-28 20:10 | ED.VISSUMM ---
- ER Visit Summary Date of Service: 01/28/20 Chief Complaint: Legs cramping History of Present Illness: The patient is a 74 M past medical history of prediabetes, fibromyalgia and BPH. Patient states he did a lot of work today with a friend and he thinks he was dehydrated from all sweating he did and start having cramping in his legs. He said he has had this happen before. It is in both legs. He denies any weakness or numbness. No falls or trauma. No history of DVT or PE. He denies any nausea, vomiting, diarrhea or fever. Physical Examination: Well-appearing older male vital signs stable afebrile. He does not look septic or toxic. He is in no acute distress. H EENT exam unremarkable. Lungs clear to auscultation. Heart regular rhythm no murmur. Abdomen soft nontender normal bowel sounds no peritoneal signs. Patient is moving all 4 extremities. Neurovascularly intact. 5 out of 5 composite technician strength bilaterally. Dorsi plantarflexion intact. Calves are nontender without edema or cords. Normal motor strength and sensation lower extremities. Back nontender. Neurologically is awake and alert with no focal motor deficits. Test Results: BMP shows 26 creatinine of 1. Normal gap. Consistent with mild dehydration. Repeat exam patient is doing well at 2221. Feels better after a liter normal saline. Exam otherwise unchanged. Emergency Department Course and Treatment: Patient has a benign exam and leg cramping. May or may not be from dehydration. Only given a liter normal saline. Labs being obtained.. Treatment Plan: Fluids and rest. Return if feeling worse. Follow-up with your doctor if not improving. Disposition: discharge Impression: Bilateral leg cramping secondary to mild dehydration This note was generated with [employer] dictation software. It may contain incorrect words, spelling, and punctuation that were not noted in review of the chart prior to signing ED Disposition - Plan for ED Patient: Referrals: Shekhar Arana MD [Primary Care Provider] -
[2020-01-28] MEDS: 0.9% Normal Saline 1,000 ML 1000 ML IV (20:58)
[2020-01-28 21:10] LABS: Anion Gap 7 (5-15); BUN 26 mg/dL (7-18); BUN/Creat Ratio 26.1 RATIO (10-20); Calcium,Total 9.1 mg/dL (8.5-10.1); Chloride 108 mmol/L (98-107); EST Glomerular Filtration Rate 78 mL/min (>60); Est Glom Filt Rate - Afr Amer 94 mL/min (>60); Glucose 101 mg/dL (74-106); Potassium 4.4 mmol/L (3.5-5.1); Sodium Level 143 mmol/L (136-145)
[2020-01-28 21:30] VITALS: BP 107/66; PULSE 94; RESP 15; O2SAT 97
--- NOTE | 2020-01-28 22:25 | ED.DEP ---
ED Disposition - Plan for ED Patient: Disposition: Home or Assisted Living Instructions: ED Dehydration (Adult) Referrals: Shekhar Arana MD [Primary Care Provider] - 3-5 Days if not improving Additional Instructions: Fluids and rest. Follow-up with your doctor if not improving. Return emergency department if feeling a lot worse. I think your cramping tonight was from mild dehydration.
[2020-01-28 22:32] VITALS: BP 130/68; PULSE 91; RESP 15; O2SAT 97
== END 2020-01-28 22:44 | disposition home or self-care (01) ==
PROVIDERS: Emergency Provider Emergency Medicine; PCP Family Medicine
DX: E86.0 Dehydration (principal); R25.2 Cramp and spasm; M79.7 Fibromyalgia
CPT/HCPCS: 80048; 99285; A4216

== ENCOUNTER → 2020-04-17 10:01 | Outpatient (CLI) | payer MEDICARE, OTHER, SELFPAY ==
[2020-04-17 12:50] LABS: Absolute Lymphocyte Count 0.87 X10^3/uL (0.83-4.51); Basophil# 0.01 X10^3/uL; Basophil% 0.2 % (0-1); Eosinophil# 0.03 X10^3/uL; Eosinophils% 0.6 % (0-5); Hematocrit 38.3 % (40-54); Hemoglobin 12.6 g/dL (13.0-16.5); Lymphocyte # 0.87 X10^3/ul (4.0); Lymphocyte % 16.3 % (19-41); Mean Corp Hgb Conc 32.9 g/dL (32-36); Mean Corpuscular Hgb 30.1 pg (27.0-32.0); Mean Corpuscular Volume 91.6 fL (80-94); Mean Platelet Vol. 9.3 fl (6.2-12.0); Monocyte# 0.35 X10^3/uL; Monocyte% 6.6 % (0-10); NRBC Flagged by Analyzer 0.4 % (0-5); Neutrophil # 4.01 X10^3/uL (2.7-7.7); Neutrophil % 75.2 % (47-70); Platelet Count 184 K/mm3 (150-450); RBC Distribution Width CV 12.2 % (11.6-14.6); RBC Distribution Width SD 40.6 fl (35.1-43.9); Red Blood Count 4.18 M/mm3 (4.6-6.2); White Blood Count 5.3 K/mm3 (4.4-11.0)
[2020-04-17 13:14] LABS: ALB/GLOB Ratio 1.2 RATIO (0.9-2.4); AST(SGOT) 15 U/L (15-37); Alanine Aminotransfer ALT/SGPT 17 U/L (16-61); Albumin, Serum 3.9 g/dL (3.2-5.0); Alkaline Phosphatase 96 U/L (45-117); Anion Gap 6 (5-15); BUN 17 mg/dL (7-18); BUN/Creat Ratio 20.6 RATIO (10-20); Calcium,Total 9.4 mg/dL (8.5-10.1); Chloride 102 mmol/L (98-107); Cholesterol 180 mg/dL (200); Creatinine, Serum 0.83 mg/dL (0.70-1.30); EST Glomerular Filtration Rate 96 mL/min (>60); Est Glom Filt Rate - Afr Amer 117 mL/min (>60); Ferritin 620 ng/mL (26-388); Globulin 3.3 g/dL (2.2-4.2); Glucose 130 mg/dL (74-106); High Density Lipoprotein 73 mg/dL; Iron 108 ug/dL (65-175); Potassium 4.1 mmol/L (3.5-5.1); Protein, Total 7.2 g/dL (6.4-8.2); Sodium Level 137 mmol/L (136-145); Triglycerides 58 mg/dL; Very Low Density Lipoprotein 12 mg/dL (5-40)
[2020-04-17 13:18] LABS: Vitamin D,25 Hydroxy 65.9 ng/mL
== END ==
PROVIDERS: PCP Family Medicine; Visit Provider Family Medicine
DX: E11.9 Type 2 diabetes mellitus without complications (principal); E03.9 Hypothyroidism, unspecified; E55.9 Vitamin D deficiency, unspecified; D64.9 Anemia, unspecified
CPT/HCPCS: 36415; 80053; 80061; 82306; 82728; 83540; 84443; 85025

== ENCOUNTER → 2020-05-05 10:31 | Outpatient (CLI) | payer MEDICARE, OTHER, SELFPAY | PROVIDERS: PCP Family Medicine; Visit Provider Family Medicine | DX: Z20.828 Contact with and (suspected) exposure to other viral communicable diseases (principal) | CPT/HCPCS: 87635; U0005; U0003 ==

== ENCOUNTER → 2020-05-10 10:09 | Outpatient (CLI) | payer MEDICARE, OTHER, SELFPAY | PROVIDERS: PCP Family Medicine; Referring Provider Nurse Practitioner Adult Health; Visit Provider Nurse Practitioner Adult Health | DX: Z12.5 Encounter for screening for malignant neoplasm of prostate (principal) | CPT/HCPCS: 36415; 84153; G0103 ==

== ENCOUNTER → 2020-10-27 16:37 | Outpatient (CLI) | payer MEDICARE, OTHER, SELFPAY ==
--- NOTE | 2020-10-27 16:42 | US_ITS ---
STUDY: THYROID ULTRASOUND REASON FOR EXAM: Male, 74 years old. PRESSURE OVER THYROID. LUMP ON R SIDE THYROID TECHNIQUE: Ultrasound evaluation of the thyroid was performed with real-time and static paul-scale imaging. COMPARISON: None. FINDINGS: RIGHT LOBE: The right lobe of the thyroid gland measures 3.8 x 1.1 x 1.2 cm. There is a homogeneous echotexture. There is a 3 x 3 x 2 mm upper pole, isoechoic, heterogeneous solid nodule containing tiny cystic spaces. There is a 6 x 4 x 4 mm mid pole simple cyst. LEFT LOBE: The left lobe of the thyroid gland measures 3.2 x 0.8 x 0.8 cm. There is a homogeneous echotexture. There are no demonstrated solid, cystic or complex lesions. ISTHMUS: The isthmus measures 3 mm . The regional lymph nodes are normal. US/Thyroid IMPRESSION: Subcentimeter right thyroid lobe solid nodule and cyst. Otherwise no definite abnormality noted. Consider CT neck with IV contrast for further characterization of the patient''s described pressure over thyroid. Electronically Signed: Preeti Hollingsworth MD at 13:25 EDT Tel , Service support ,
== END ==
PROVIDERS: PCP Family Medicine; Referring Provider Family Medicine; Visit Provider Family Medicine
DX: E04.9 Nontoxic goiter, unspecified (principal); R22.1 Localized swelling, mass and lump, neck
CPT/HCPCS: 76536

== ENCOUNTER 2020-10-29 12:47 | Emergency (ER) | payer MEDICARE, OTHER, SELFPAY ==
[2020-10-29 12:48] VITALS: BP 154/89; PULSE 73; RESP 18; TEMP 36; O2SAT 100; BMI 25.2
--- NOTE | 2020-10-29 13:30 | EKG12_ITS ---
Test Reason : DIZZINESS Blood Pressure : / mmHG Vent. Rate : 080 BPM Atrial Rate : 080 BPM P-R Int : 212 ms QRS Dur : 102 ms QT Int : 390 ms P-R-T Axes : 044 -38 013 degrees QTc Int : 449 ms Sinus rhythm with 1st degree A-V block Left axis deviation Poor R wave progression Abnormal ECG Confirmed by RUPA MCKENZIE, ELSA ([id number]), managing editor FRANCESCA VERDUZCO ([id number]) on 10/31/2020 8:52:00 AM Referred By: YASMIN/MARIO Confirmed By:ELSA GOODE MD
--- NOTE | 2020-10-29 13:57 | CT_ITS ---
STUDY: CT BRAIN WITHOUT CONTRAST REASON FOR EXAM: Male, 74 years old. Injury RADIATION DOSAGE (If Supplied By Facility): CTDIvol = ( 44.99 ) mGy, DLP = ( 746.73 ) mGycm TECHNIQUE: Transaxial CT imaging of the brain was performed without administration of intravenous contrast material. Individualized dose optimization techniques were used for this CT. COMPARISON: No relevant priors. FINDINGS: Brain parenchyma is without focal lesions, mass effect, acute intracranial hemorrhage, extra parenchymal fluid collections, hydrocephalus or herniation. The skull is intact. CT/Brain/Head without Contrast IMPRESSION: 1. Normal CT brain. Electronically Signed: Brenna Whitt MD at 15:08 EDT Tel , Service support ,
[2020-10-29 14:00] VITALS: BP 145/87; PULSE 71; RESP 18; O2SAT 98
--- NOTE | 2020-10-29 14:03 | EDS_ITS ---
HPI History of Present Illness Chief Complaint: Dizziness Informant: patient and family Narrative Narrative: 74-year-old male presents the emergency department chief complaint of dizziness. 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 On afternoon he fell off of his lawnmower and believes he had a loss of consciousness after striking his head. He does not really remember the events. He states that he has had a headache since that time but it is waxed and waned. Today he reports nausea vomiting due to a sensation that the room is spinning. He is not on any blood thinners. He denies any arm or leg symptoms. No speech symptoms. [facility] Medical History (Updated 10/29/20 @ 15:[address] Heber Cyr, ) Bradycardia Chronic anemia Fibromyalgia GERD (gastroesophageal reflux disease) Lipoma Premature ventricular contractions Skin lesion Home Medications finasteride 5 mg PO DAILY 11/23/15 [History Last Taken Unknown] levothyroxine 88 mcg PO DAILY 11/23/15 [History Last Taken 12/24/19] paroxetine HCl 30 mg PO DAILY 01/01/16 [History Last Taken Unknown] cholecalciferol (vitamin D3) 5,000 unit PO DAILY 04/25/16 [History Last Taken Unknown] saw palmetto-pumpkin seed oil 160 mg PO DAILY 04/25/16 [History Last Taken Unknown] multivitamin 1 tab PO DAILY 06/05/18 [History Last Taken Unknown] cimetidine 300 mg tablet 300 mg PO DAILY 11/29/19 [History Last Taken 12/24/19] magnesium 250 mg tablet 500 mg PO QDAY tab 11/29/19 [History Last Taken Unknown] omeprazole 40 mg capsule,delayed release 40 mg PO DAILY #30 cap 01/04/20 [Rx Last Taken Unknown] diazepam 5 mg PO Q8 PRN #15 tab 10/29/20 [Rx Last Taken Unknown] ondansetron 4 mg PO Q6H PRN PRN #15 tab 10/29/20 [Rx Last Taken Unknown] Allergy/AdvReac Type Severity Reaction Status Date / Time cefaclor [From Ceclor] Allergy Unknown Verified 10/29/20 12:47 nortriptyline Allergy Unknown Verified 10/29/20 12:47 Penicillins Allergy blisters Verified 10/29/20 12:47 on feet alfuzosin [From Uroxatral] AdvReac Unknown Verified 10/29/20 12:47 esomeprazole [From Nexium] AdvReac Itching Verified 10/29/20 12:47 lansoprazole [From Prevacid] AdvReac Upset Verified 10/29/20 12:47 Stomach METAL Allergy Rash Uncoded 10/29/20 12:47 Family History Father Diabetes Afib pacemaker Mother Heart disease Hx CHF Hypertension Surgical History History of cholecystectomy History of prostate surgery History of testicular mass excision History of tonsillectomy and adenoidectomy Hx of colonoscopy Social History Smoking Status: Never smoker alcohol intake: never substance use type: does not use caffeine: Yes Type: carbonated beverages what type of physical activity do you participate in: none seatbelt use: always do you feel safe at home: Yes ROS ROS ED Constitutional Constitutional ED: Denies chills or weight loss Eyes Eyes: Denies change in vision or diplopia ENT ENT ED: Denies ear pain, rhinorrhea or sore throat Cardiovascular Cardiovascular: Denies chest pain, orthopnea, palpitations or racing heartbeat Respiratory/Chest Respiratory/Chest: Denies cough, dyspnea or orthopnea Gastrointestinal Gastrointestinal: Reports nausea and vomiting; Denies abdominal pain or diarrhea Genitourinary Genitourinary ED: Denies dysuria, hematuria or urinary frequency Musculoskeletal Musculoskeletal: Reports neck pain; Denies arthralgias or myalgias Integumentary Denies abscess or rash Neurologic Neurologic: Reports headache(s) and other Details: Vertigo ; Denies weakness Psychiatric Psychiatric: Denies anxiety, depression, suicidal ideation or suicidal thoughts Endocrine Endocrinology: Denies polydipsia, polyphagia or polyuria Allergic/Immunologic Allergic/Immunologic ED: Denies mouth swelling, tongue swelling or urticaria EXAM Physical Exam Const Vital Signs: 10/29/20 12:48 10/29/20 13:10 10/29/20 13:11 Temperature 96.8 F L Temperature Source Temporal Pulse Rate 73 Respiratory Rate 18 Respiratory Effort Normal Non-Labored Normal Non-Labored Blood Pressure 154/89 H Blood Pressure Mean 110 Pulse Ox 100 Oxygen Delivery Method Room Air 10/29/20 14:00 10/29/20 15:00 Temperature Temperature Source Pulse Rate 71 88 Respiratory Rate 18 18 Respiratory Effort Blood Pressure 145/87 H 141/64 H Blood Pressure Mean 106 89 Pulse Ox 98 97 Oxygen Delivery Method Room Air Room Air Positive well nourished and well developed General Appearance ED: well developed HEENT Reports normocephalic, head/scalp atraumatic, TM's clear and moist mucous membranes Tympanic Membrane ED: Yes TM's clear Eyes PERRL and EOMs intact bilaterally Eyes Narrative: No nystagmus Neck no lymphadenopathy, supple and no JVD Resp normal respiratory effort and clear to auscultation bilaterally Cardio regular rate, regular rhythm and no murmurs GI normal to inspection, nondistended, normoactive bowel sounds and non-tender Palpation: soft Back/Spine no CVA tenderness and normal ROM Extremity normal to inspection General Extremety ED: Negative for edema General Extremity: Negative for edema Neuro oriented x3 and CN's II-XII intact bilaterally Sensorium / Orientation: alert Motor Exam: strength 5/5 throughout Psych mental status grossly normal Mood & Affect: Negative for depressed or tearful Skin no rashes or lesions noted and no wounds MDM MDM MDM Narrative Medical decision making narrative: Basic blood work obtained was negative. CT the brain negative. Patient received IV fluids Zofran and Valium. Repeat examination finds him to be significantly improved. I will write for the same medications at home. He is to follow-up with primary care Lab Data Attestation: I reviewed the patient's lab results. Labs: Laboratory Results - last 24 hr 10/29/20 10/29/20 13:26 13:26 WBC 5.4 RBC 3.86 L Hgb 12.2 L Hct 34.7 L MCV 89.9 MCH 31.6 MCHC 35.2 RDW Std Deviation 38.8 RDW Coeff of Jayesh 12.0 Plt Count 164 MPV 9.1 Immature Gran % (Auto) 1.300 H Neut % (Auto) 87.3 H Lymph % (Auto) 8.6 L Taylor % (Auto) 2.8 Eos % (Auto) 0.0 Baso % (Auto) 0.0 Absolute Neuts (auto) 4.8 Absolute Lymphs (auto) 0.47 L Nucleated RBC % 0 Sodium 135 L Potassium 4.1 Chloride 101 Carbon Dioxide 23.0 Anion Gap 11 BUN 18 Creatinine 0.87 Estim Creat Clear Calc 75.75 Est GFR (MDRD) Af Amer 110 Est GFR (MDRD) Non-Af 91 BUN/Creatinine Ratio 20.7 H Glucose 244 H Calcium 9.3 Radiography Diagnostic Testing: Radiology Impression Brain CT 10/29/20 13:57 IMPRESSION: 1. Normal CT brain. Electronically Signed: Brenna Whitt MD at 15:08 EDT Tel , Service support , Discharge Plan Triage Chief Complaint: Dizziness ED Provider: Heber Cyr Dx/Rx/DC Orders Clinical Impression: Concussion, Vertigo, Vomiting Instructions: ED Concussion Prescriptions: New ondansetron [ondansetron] 4 MG tablet 4 mg PO Q6H PRN PRN (Reason: Nausea) Qty: 15 RF: 0 diazepam [diazepam] 5 MG tablet 5 mg PO Q8 PRN (Reason: Vertigo) Qty: 15 RF: 0 No Action magnesium 250 mg tablet 500 mg PO QDAY RF: 0 multivitamin [Daily Multi-Vitamin] tablet 1 tab PO DAILY RF: 0 cimetidine 300 mg tablet 300 mg PO DAILY RF: 0 levothyroxine 88 MCG tablet 88 mcg PO DAILY RF: 0 finasteride 5 MG tablet 5 mg PO DAILY RF: 0 paroxetine HCl 30 MG tablet 30 mg PO DAILY RF: 0 cholecalciferol (vitamin D3) 1,000 UNIT capsule 5,000 unit PO DAILY RF: 0 saw palmetto-pumpkin seed oil 160 MG capsule 160 mg PO DAILY RF: 0 omeprazole 40 mg capsule,delayed release(DR/EC) 40 mg PO DAILY Qty: 30 RF: 2 Primary Care Provider: Shekhar Arana Referrals: Shekhar Arana MD [Primary Care Provider] - 1 Week Disposition Disposition: Home, Self Care
[2020-10-29 14:11] LABS: Absolute Lymphocyte Count 0.47 X10^3/uL (0.83-4.51); Absolute Neutrophil Count 4.8 X10^3/uL (2.0-7.7); Hematocrit 34.7 % (40-54); Hemoglobin 12.2 g/dL (13.0-16.5); Lymphocyte # 0.47 X10^3/ul (0.83-4.51); Lymphocyte % 8.6 % (19-41); Mean Corp Hgb Conc 35.2 g/dL (32-36); Mean Corpuscular Hgb 31.6 pg (27.0-32.0); Mean Corpuscular Volume 89.9 fL (80-94); Mean Platelet Vol. 9.1 fl (6.2-12.0); Monocyte# 0.15 X10^3/uL; Monocyte% 2.8 % (0-10); NRBC Flagged by Analyzer 0 % (0-5); Neutrophil # 4.75 X10^3/uL (2.7-7.7); Neutrophil % 87.3 % (47-70); POSITIVE DIFFERENTIAL YES; Platelet Count 164 K/mm3 (150-450); RBC Distribution Width SD 38.8 fl (35.1-43.9); Red Blood Count 3.86 M/mm3 (4.6-6.2); White Blood Count 5.4 K/mm3 (4.4-11.0)
[2020-10-29] MEDS: Ondansetron 4 MG/2 ML Vial IV (14:11)
[2020-10-29] MEDS: diazePAM 5 MG Tablet PO (14:11)
[2020-10-29 14:18] LABS: Differential Indicated SCAN CRITERIA MET
[2020-10-29 14:22] LABS: Anion Gap 11 (5-15); BUN 18 mg/dL (7-18); BUN/Creat Ratio 20.7 RATIO (10-20); Calcium,Total 9.3 mg/dL (8.5-10.1); Chloride 101 mmol/L (98-107); Creatinine, Serum 0.87 mg/dL (0.70-1.30); EST Glomerular Filtration Rate 91 mL/min (>60); Est Glom Filt Rate - Afr Amer 110 mL/min (>60); Estimated Creatinine Clearance 75.75 ml/min; Glucose 244 mg/dL (74-106); Potassium 4.1 mmol/L (3.5-5.1); Sodium Level 135 mmol/L (136-145)
[2020-10-29 15:00] VITALS: BP 141/64; PULSE 88; RESP 18; O2SAT 97
[2020-10-29 15:38] VITALS: BP 144/87; PULSE 71; RESP 18; O2SAT 98
== END 2020-10-29 15:39 | disposition home or self-care (01) ==
PROVIDERS: Emergency Provider Emergency Medicine; PCP Family Medicine
DX: S06.0X9A Concussion with loss of consciousness of unspecified duration, initial encounter (principal); R42 Dizziness and giddiness; R11.2 Nausea with vomiting, unspecified; W19.XXXA Unspecified fall, initial encounter; Z87.820 Personal history of traumatic brain injury
CPT/HCPCS: 70450; 80048; 85025; 93005; 96374; 99283; J7030; A4216; J2405

== ENCOUNTER 2020-12-29 06:50 | Day surgery (SDC) | payer MEDICARE, OTHER, SELFPAY ==
[2020-12-29] MEDS: Lactated Ringers 1,000 ML 15 ML IV (07:20)
--- NOTE | 2020-12-29 07:30 | PCM.HP.BLA ---
History and Physical Date of Admission: 12/29/20 Intake Visit Reasons: Repeat Yearly C-Scope Chief Complaint: Repeat one year c-scope Can Top Setter Required: No Is patient in pain?: No Allergies cefaclor [From Ceclor] Allergy (Verified 12/11/20 12:58) Unknown nortriptyline Allergy (Verified 12/11/20 12:58) Unknown Penicillins Allergy (Verified 12/11/20 12:58) blisters on feet alfuzosin [From Uroxatral] Adverse Reaction (Verified 12/11/20 12:58) Unknown esomeprazole [From Nexium] Adverse Reaction (Verified 12/11/20 12:58) Itching lansoprazole [From Prevacid] Adverse Reaction (Verified 12/11/20 12:58) Upset Stomach METAL Allergy (Uncoded 10/29/20 12:47) Rash Medications levothyroxine 88 mcg PO DAILY 11/23/15 [History Confirmed 12/11/20] saw palmetto-pumpkin seed oil 160 mg PO DAILY 04/25/16 [History Confirmed 12/11/20] multivitamin 1 tab PO DAILY 06/05/18 [History Confirmed 12/11/20] cimetidine 300 mg tablet 300 mg PO DAILY 11/29/19 [History Confirmed 12/11/20] diazepam 5 mg PO Q8 PRN #15 tab 10/29/20 [Rx Confirmed 12/11/20] azelastine-fluticasone 137 mcg-50 mcg/spray nasal spray 1 spray INTRANASAL BID 12/11/20 [History Confirmed 12/11/20] cholecalciferol (vitamin D3) 25 mcg (1,000 unit) capsule 2,000 unit PO DAILY cap 12/11/20 [History Confirmed 12/11/20] magnesium 250 mg tablet 250 mg PO QDAY tab 12/11/20 [History Confirmed 12/11/20] paroxetine HCl 30 mg tablet 40 mg PO DAILY tab 12/11/20 [History Confirmed 12/11/20] [facility] Medical History (Updated 12/11/20 @ 13:[address] Darren Harman MD) Bradycardia Chronic anemia Fibromyalgia GERD (gastroesophageal reflux disease) Lipoma Premature ventricular contractions Skin lesion Surgical History History of cholecystectomy History of prostate surgery History of testicular mass excision History of tonsillectomy and adenoidectomy Hx of colonoscopy Family History Father Diabetes Afib pacemaker Mother Heart disease Hx CHF Hypertension Social History Smoking Status: Never smoker alcohol intake: never substance use type: does not use caffeine: Yes Type: carbonated beverages what type of physical activity do you participate in: none seatbelt use: always do you feel safe at home: Yes HPI HPI HPI: NITISH MUNOZ, is a 75 M who presents to the office today for Surgical consultation regarding a surveillance colonoscopy.the patient is referred by Dr. Shekhar Arana and written copy of my surgical consult and recommendations will return to him.. The patient had a previous colonoscopy April 2016 with a tubular adenoma resected at that time. Patient also had a upper endoscopy done at the same time by Dr. Mendez. Gastritis and benign biopsies of the Z-line performed. More recently I assisted him on December 24, 2019. He presented with iron deficiency anemia. He had very lax anal tone was difficult to keep the bowel inflated. A 22 mm polyp was seen in the mid sigmoid multilobulated and sessile. It was resected piecemeal and a hemostatic clip was placed. Multiple diverticula were identified in the sigmoid and descending colon. Pathology fortunately showed a tubular adenoma. At that same time I did an upper endoscopy. A small hiatal hernia and chronic gastritis fundic gland polyp identified. Benign changes of chronic inflammation at the distal esophagus. H. pylori was negative. There was no finding of acute blood loss. He is maintained on cimetidine 300 mg orally daily. Medication listing also has him on omeprazole 40 mg daily. He has noted no particular illnesses over the past year. He is not experience COVID-19. He has been fully vaccinated. He anticipates taking the booster shot when available. ROS General General: Yes weight change; No appetite, fatigue, colon cancer, breast cancer or weakness HEENT HEENT: No difficulty swallowing, eye injury, eye surgery, swollen glands or hoarseness Endo Endocrine: No thyroid disease, diabetes mellitus, thyroid cancer, Hair loss, heat intolerance or cold intolerance Skin Skin: No rash or changing moles Breast Breast: No left breast lump, right breast lump, nipple discharge, breast pain, abnormal mammogram, abnormal US or breast enlargement Musc Musculoskeletal: No back problems, arthritis, rheumatoid arthritis, gout or joint pain Cardio Cardiovascular: No murmur, pacemaker, heart disease, atrial fibrillation, high blood pressure, heart attack, heart stent, palpitations, shortness of breat with exertion or chest pain Psych Psychiatric: Yes depression and anxiety; No hearing voices Resp Respiratory: No shortness of breath, No sleep apnea, No cough, No COPD, No asthma, No emphysema and No wheezing Gastro Gastrointestinal: Yes abdominal pain, No nausea or vomiting, No diarrhea, Yes constipation, No blood in stool, Yes acid reflux, No hemorrhoids, No ulcers, No gallbladder problem and No black,tarry stools Sherwin Hematologic: No blood thinners, No blood disorders, No bleeding, No anemia and No blood clots Neuro Neurologic: No system reviewed and no additional complaints, except as documented, No as per HPI, No abnormal gait, No abnormal hearing, No abnormal movements, No abnormal speech, No behavioral changes, No burning sensations, No confusion, No convulsions, No disequilibrium, No dizziness, No localized weakness, No frequent falls, No headache(s), No lack of coordination, No loss of vision, No memory loss, No numbness, No other visual disturbances, No radicular pain, No restless legs, No sensory deficit, No syncope, No tingling, No tremor(s), No weakness and No other Exam Const General: cooperative, comfortable and no acute distress Nutritional Appearance: average body habitus Orientation: awake [facility] Head: normal to inspection Eyes General: appearance normal, both eyes and all related structures Chest Chest palpation & inspection: normal inspection of the chest Resp Effort & Inspection: normal respiratory effort Auscultation: clear to auscultation bilaterally Cardio Rate: regular rate Rhythm: regular rhythm GI Palpation: soft and no hepatosplenomegaly Auscultation: normal bowel sounds Musc Cervical Spine: normal cervical lordosis Skin General: no rashes or lesions noted Neuro General: patient alert and patient awake Extrem Other: Mild bilateral extremity swelling nonpitting Psych Appearance: grossly normal COVID (Procedure Consent) Procedure Criteria Procedure Criteria: Yes Elective The surgeon/proceduralist and patient have discussed in detail the risk of exposure to and/or potential harm posed by the COVID-19 virus with having a surgery/procedure at this time versus the risk of delaying the surgery/procedure. It is not possible to know either the risk of delaying the surgery or procedure or chance of getting an infection with perfect accuracy, but a joint decision was made between the patient and the surgeon/proceduralist to proceed at this time with the scheduled surgery/procedure as indicated on the consent form. Assessment and Plan Assessment and Plan (1) Personal history of colonic polyps: Status: Acute Plan - Dr. Darren Harman MD: 75-year-old gentleman. Approximately a year ago he required piecemeal resection of a 2 cm sigmoid polyp. Hemostatic clip needed to be placed. He had extensive diverticular disease. I recommend to him a follow-up short-term colonoscopy because of the difficulty of the resection and risk of residual disease or recurrent disease. I propose for him a colonoscopy with possible biopsy or polypectomy as indicated. He has had an opportunity to ask questions answered. He tolerated the MiraLAX prep well last time. We will utilize monitored anesthesia care. Copy: Dr. Shekhar Harman M.D., F.A.C.S. I have re-examined the patient. There are no clinical changes since date of exam. Darren Harman M.D., F.A.C.S.
[2020-12-29 07:34] VITALS: BP 133/79; PULSE 83; RESP 16; TEMP 36; O2SAT 97; BMI 26.4
[2020-12-29 08:46] VITALS: BP 103/75; BP 133/79; PULSE 79; RESP 14; TEMP 36.1; O2SAT 99
--- NOTE | 2020-12-29 08:48 | OP.COLON_ITS ---
Patient Name: Chance Troncoso Procedure Date: 12/29/2020 8:24 AM Date of : 1945 Age: 75 Procedure: Colonoscopy Indications: High risk colon cancer surveillance: Personal history of colonic polyps Providers: Darren Harman MD Medicines: See the Anesthesia note for documentation of the administered medications Patient Profile: Last Colonoscopy: 1 year ago. Complications: No immediate complications. Procedure: Pre-Anesthesia Assessment: - Prior to the procedure, a History and Physical was performed, and patient medications and allergies were reviewed. The patient's tolerance of previous anesthesia was also reviewed. The risks and benefits of the procedure and the sedation options and risks were discussed with the patient. All questions were answered, and informed consent was obtained. Prior Anticoagulants: The patient has taken no previous anticoagulant or antiplatelet agents. ASA Grade Assessment: II - A patient with mild systemic disease. After reviewing the risks and benefits, the patient was deemed in satisfactory condition to undergo the procedure. After I obtained informed consent, the scope was passed under direct vision. Throughout the procedure, the patient's blood pressure, pulse, and oxygen saturations were monitored continuously. The Colonoscope was introduced through the anus and advanced to the cecum, identified by appendiceal orifice and ileocecal valve. The colonoscopy was performed without difficulty. The patient tolerated the procedure well. The quality of the bowel preparation was fair. The ileocecal valve was photographed. Scope In: 8:30:56 AM Scope Withdrawal Time 0 hours 8 minutes 17 seconds Scope Out: 8:43:27 AM Total Procedure Duration Time 0 hours 12 minutes 31 seconds Findings: The digital rectal exam findings include non-thrombosed internal hemorrhoids and internal hemorrhoids that prolapse with straining, but spontaneously regress to the resting position (Grade II). Pertinent negatives include normal prostate (size, shape, and consistency). Multiple diverticula were found in the sigmoid colon and descending colon. The exam was otherwise without abnormality. Impression: - Preparation of the colon was fair. - Non-thrombosed internal hemorrhoids and internal hemorrhoids that prolapse with straining, but spontaneously regress to the resting position (Grade II) found on digital rectal exam. - Diverticulosis in the sigmoid colon and in the descending colon. - The examination was otherwise normal. - No specimens collected. Recommendation: - Discharge patient to home. - Resume previous diet. - Continue present medications. - Repeat colonoscopy in 5 years for surveillance. Procedure Code(s): --- Professional --- 56646, Colonoscopy, flexible; diagnostic, including collection of specimen(s) by brushing or washing, when performed (separate procedure) Diagnosis Code(s): --- Professional --- Z86.010, Personal history of colonic polyps K64.1, Second degree hemorrhoids K57.30, Diverticulosis of large intestine without perforation or abscess without bleeding CPT copyright 2017 [employer]. All rights reserved. The codes documented in this report are preliminary and upon activity assistant review may be revised to meet current compliance requirements. Darren Harman MD 12/29/2020 8:47:40 AM This report has been signed electronically. Number of Addenda: 0 Note Initiated On: 12/29/2020 8:24 AM
--- NOTE | 2020-12-29 08:48 | OP.CCLET_ITS ---
12/29/2020 Shekhar Arana Re : Colonoscopy procedure for Chance Troncoso Dear Yasmeen This procedure was performed on Tuesday, December 29, 2020. My impressions and recommendations are as follows: Impressions : - Preparation of the colon was fair. - Non-thrombosed internal hemorrhoids and internal hemorrhoids that prolapse with straining, but spontaneously regress to the resting position (Grade II) found on digital rectal exam. - Diverticulosis in the sigmoid colon and in the descending colon. - The examination was otherwise normal. - No specimens collected. Recommendations : - Discharge patient to home. - Resume previous diet. - Continue present medications. - Repeat colonoscopy in 5 years for surveillance. My findings are described in the full procedure note, which is enclosed. If I can be of further assistance, please feel free to contact me at Doctor phone number(s): Work: . Sincerely, Darren Harman MD 12/29/2020 8:47:40 AM This report has been signed electronically.
[2020-12-29 08:51] VITALS: BP 110/61; BP 133/79; PULSE 71; RESP 14; O2SAT 98
[2020-12-29 08:56] VITALS: BP 110/68; BP 133/79; PULSE 65; RESP 12; O2SAT 97
[2020-12-29 09:01] VITALS: BP 115/74; BP 133/79; PULSE 61; RESP 16; TEMP 36.1; O2SAT 98
[2020-12-29 09:15] VITALS: BP 133/79
== END 2020-12-29 09:31 | disposition home or self-care (01) ==
LOC: EN 06:51 → AC 06:52
PROVIDERS: PCP Family Medicine; Referring Provider Family Medicine; Visit Provider Surgery
PROC: 0DJD8ZZ Inspection of Lower Intestinal Tract, Via Natural or Artificial Opening Endoscopic (ICD-10-PCS; CPT 45378; principal; 2020-12-29 08:10)
DX: Z12.11 Encounter for screening for malignant neoplasm of colon (principal); K64.1 Second degree hemorrhoids; K57.30 Diverticulosis of large intestine without perforation or abscess without bleeding; K21.9 Gastro-esophageal reflux disease without esophagitis; I49.3 Ventricular premature depolarization; E03.9 Hypothyroidism, unspecified; D50.9 Iron deficiency anemia, unspecified; M19.90 Unspecified osteoarthritis, unspecified site; M79.7 Fibromyalgia; Z79.899 Other long term (current) drug therapy; Z86.010 Personal history of colon polyps
CPT/HCPCS: G0105; J7120; J2405

== ENCOUNTER 2021-02-27 10:11 | Outpatient (CLI) | payer MEDICARE, OTHER, SELFPAY ==
[2021-02-27 11:31] LABS: Platelet Count 182 K/mm3 (150-450); RET-HE 37.1 pg (30-35); Reticulocyte Count 2.18 % (0.5-1.5)
[2021-02-27 11:42] LABS: Erythrocyte Sedimentation Rate 2 mm/hr (0-20)
[2021-02-27 11:56] LABS: CRP < 2.90 mg/L (0.0-3.0); Ferritin 448 ng/mL (26-388); Iron 140 ug/dL (65-175); Iron Binding Capacity,Total 400 ug/dL (250-450)
[2021-02-27 11:56] LABS: Vitamin B12 398 pg/mL (211-911)
[2021-02-27 12:04] LABS: Thyroid Stim Hormone (TSH) 2.16 uIU/mL (0.358-3.74)
[2021-02-28 16:08] LABS: Endomysial Antibody IgA Negative (Negative)
[2021-02-28 16:40] LABS: Immunoglobulin A 98 mg/dL (61-437); t-Transglutaminase IgA <2 U/mL (0-3)
[2021-03-02 15:29] LABS: Anti-Parietal Cell AB, QN 8.3 Units (0.0-20.0); Intrinsic Factor Ab 0.9 AU/mL (0.0-1.1)
== END 2021-02-27 23:59 | disposition short-term general hospital (02) ==
PROVIDERS: Nurse Practitioner Adult Health; PCP Family Medicine; Referring Provider Internal Medicine Gastroenterology; Visit Provider Internal Medicine Gastroenterology
DX: D64.9 Anemia, unspecified (principal); R00.1 Bradycardia, unspecified
CPT/HCPCS: 36415; 82607; 82728; 82784; 83516; 83540; 83550; 84443; 85045; 85652; 86140; 86255; 86340

== ENCOUNTER 2021-04-04 13:31 | Outpatient (CLI) | payer MEDICARE, OTHER, SELFPAY ==
--- NOTE | 2021-04-04 13:34 | CT_ITS ---
STUDY: CT ABDOMEN AND PELVIS WITH CONTRAST REASON FOR EXAM: Male, 75 years old. Abdominal pain and anemia RADIATION DOSAGE (If Supplied By Facility): CTDIvol = ( 18.99 ) mGy, DLP = ( 1086.94 ) mGycm TECHNIQUE: Transaxial images were obtained from the dome of the diaphragm to the symphysis pubis with oral contrast. Oral IV Read i-CAT and 100mL Isovue-370 was administered. Sagittal and coronal images were reconstructed. Individualized dose optimization techniques were used for this CT. COMPARISON: 04.25.2012 CT abdomen and pelvis FINDINGS: The visualized lung bases are unremarkable. The visualized portions of the heart are within normal limits. Normal liver. There are surgical clips in the gallbladder fossa consistent with a prior cholecystectomy. There is a low attenuating cystic structure within the spleen measuring 8.8 mm. There is diffuse atrophy of the pancreas. Normal bilateral adrenal glands. There are a few tiny cyst in the inferior pole, right kidney measuring less than 3 to 4 mm. There is a cyst in the lower pole of the left kidney measuring approximately 4 mm. Normal left kidney. There is a distended appearance of the stomach with mixed density and layering of solid components the dependent portion. There mildly distended loops of small bowel. There is a visualized second part of duodenum diverticulum measuring 3.0 x 2.3 cm slightly greater in size than prior study. There is mild to moderate stool in colon. There are numerous diverticula present within the descending colon and sigmoid without diverticulitis. There is non-visualization of the appendix. There is diffuse atherosclerotic calcification of the abdominal aorta, without a demonstrated aneurysm. Normal inferior vena cava. Normal retroperitoneum. Normal urinary bladder. There are prostatic calcifications. Normal abdominal wall. There are diffuse degenerative changes of the visualized lumbar spine. There is multilevel disc space narrowing and endplate sclerosis spondylosis. There is a stable low attenuating focal lesion within the L4 vertebral body suggesting hemangioma. There is disc space narrowing and broad disc bulge moderate neural foramina narrowing mild to moderate central stenosis. CT/Abdomen/Pelvis WITH Contrast IMPRESSION: Nonspecific distention of the stomach with mixed contents. Duodenal diverticulum. Nonvisualization of the appendix. Status post cholecystectomy. Diverticulosis no diverticulitis Benign-appearing splenic cyst. Small benign-appearing renal cysts.. Stable bony hemangioma L4. Multilevel degenerative change of the lumbar spine. Electronically Signed: Justa Wallace MD at 2:17 EST ,
[2021-04-04 13:56] LABS: CREATININE FINGERSTICK 1.4 mg/dL (0.70-1.30)
== END 2021-04-04 23:59 | disposition home or self-care (01) ==
LOC: CT 13:32
PROVIDERS: PCP Family Medicine; Referring Provider Internal Medicine Gastroenterology; Visit Provider Internal Medicine Gastroenterology
DX: K57.10 Diverticulosis of small intestine without perforation or abscess without bleeding (principal); D73.4 Cyst of spleen; R10.9 Unspecified abdominal pain; D64.9 Anemia, unspecified; Z90.49 Acquired absence of other specified parts of digestive tract
CPT/HCPCS: 74177; Q9967

== ENCOUNTER 2021-05-07 10:57 | Day surgery (SDC) | payer MEDICARE, OTHER, SELFPAY ==
[2021-05-07] VITALS (7 sets, daily range): BP systolic 109–161; BP diastolic 68–94; PULSE 68–86; RESP 16; TEMP 36.1–36.6; O2SAT 94–97; BMI 27.1
--- NOTE | 2021-05-07 | ESO_PTH ---
PATIENT: NITISH MUNOZ LOC: EN U#:[id number] AGE/SX: 75/M ROOM: RE05/07/[address]: Dr. Judah Lara DO : 1945 BED: DIS: 05/07/2021 SPEC #: [id number] RECD: 05/07/21 15:30 STATUS: MARILU JAMAAL #: [id number] MARIA ISABEL: 05/07/21 00:[address]: Judah Lara DEPT: SURGICAL PATHOLOGY RECD BY: Junior Kuhn ENTERED: 05/08/21 10:40 SP TYPE: KIM WILBURN DR: Dr. Shekhar Arana MD Tissues: Esophagus, NOS Procedures: Special Stain Group II Surgery Specimen Level IV Alcian Blue/PAS (control) HEADER OPERATION: EGD with biopsy ([facility]) PRE-OP DIAGNOSIS: History of colonic biopsy TISSUE SUBMITTED: Distal esophagus biopsy MICROSCOPIC DIAGNOSIS Distal esophagus, biopsy: Gastroesophageal junctional mucosa with mild chronic inflammation. No evidence of goblet cell metaplasia. See comment. AM:kenny 05/09/2021 COMMENT Alcian blue/PAS stain with matched control supports the above diagnosis. MICROSCOPIC DESCRIPTION Slides are reviewed. GROSS DESCRIPTION Received in fixative is one container labeled with the patient's name and designated distal esophagus biopsy. The specimen consists of two irregular fragments of light wilson soft tissue that in aggregate measure 0.5 x 0.5 x 0.1 cm. The specimen is totally submitted in one cassette. / AM:kenny 05/08/2021 TC:3 CPT: 17618, 19587
[2021-05-07] MEDS: Lactated Ringers 1,000 ML 100 ML IV (11:40)
--- NOTE | 2021-05-07 12:24 | PCM.HP.BLA ---
History and Physical Date of Admission: 05/07/21 75 M who presents to the office today for Reporting lower abdominal pain that has for recent memory with increased difficulty in fall of 2020. Is present most of the time with increasing pain with gas producing foods. Reports constipation and takes Colace, he has some amount of BM every day which requires straining. Reports urgency and frequency in urination. Sees Dr. Diaz for this and will be following up with them. He is taking paroxetine and this was recently increased. Colonoscopy performed 12/29/[address] Deanne Harman with noted internal hemorrhoids that prolapse with straining and spontaneously regress to resting position. Diverticulosis in sigmoid colon and descending colon. ROS ENT ENT: Positive for hearing loss and tinnitus Gastro GI: Positive for abdominal pain, bloating, change in bowel habits, constipation and heartburn Genitourinary Male: Positive for urinary frequency and urinary urgency Skin Skin: Positive for dry skin Exam Const General: cooperative and comfortable Nutritional Appearance: average body habitus and well nourished HENMT Head: normal to inspection Ears: hearing grossly normal bilaterally Nose: external nose normal Face and sinus: normal facial exam Mouth: oral mucosae normal Throat: posterior oropharynx normal Eyes General: appearance normal, both eyes and all related structures Neck Neck: normal visual inspection Chest Chest palpation & inspection: normal inspection of the chest and normal palpation of entire chest wall Resp Effort & Inspection: normal respiratory effort Auscultation: Bilateral: Clear to Auscultation Cardio Palpation: normal PMI Rate: regular rate Rhythm: regular rhythm GI Inspection: normal to inspection Auscultation: normal bowel sounds Percussion: normal to percussion Palpation: no hepatosplenomegaly Skin General: no rashes or lesions noted Neuro General: patient alert Extrem General: normal to inspection Psych Affect: normal affect Quality Reporting Tobacco Screening ([facility] 138) Smoking Status: Never smoker Assessment and Plan Assessment and Plan (1) Chronic anemia: Status: Chronic Orders: Orders: Vitamin B12 Today Dr. Judah Lara, DO Thyroid Stim Hormone (TSH) Today Dr. Judah Lara, DO Celiac Disease Profile Today Dr. Judah Lara, DO CRP Today Kary Alvarez WAITER/WAITRESS FORMAL, WAITER/WAITRESS FORMAL-C Ferritin Today Kary Alvarez WAITER/WAITRESS FORMAL, WAITER/WAITRESS FORMAL-C Iron+Iron Binding Capacity Today Kary Alvarez WAITER/WAITRESS FORMAL, WAITER/WAITRESS FORMAL-C Retic Panel Count Today Kary Alvarez WAITER/WAITRESS FORMAL, WAITER/WAITRESS FORMAL-C Erythrocyte Sed Rate Today Kary Bazan Antonio WAITER/WAITRESS FORMAL, WAITER/WAITRESS FORMAL-C Anti-Parietal Cell AB, QN Today Kary Bazan Antonio WAITER/WAITRESS FORMAL, WAITER/WAITRESS FORMAL-C Intrinsic Factor Ab Today Kary Bazan Antonio WAITER/WAITRESS FORMAL, WAITER/WAITRESS FORMAL-C Plan - Dr. So Friend, DO: He has elements of anemia chronic disease, iron deficiency anemia and possible hemolysis. We will get B12, TSH, celiac profile, CRP, ESR, ferritin, iron and, iron binding capacity and reticulocyte count. We will also check for atrophic gastritis which can lead to anemia in the elderly causing a mixed macrocytic anemia and anemia chronic disease. (2) Abdominal pain: Status: Acute Plan - Dr. So Friend, DO: Intermittent abdominal pain and I noticed that his platelet count was mildly decreasing possibly secondary to nutrition versus possibly underlying liver disease. I would recommend a CT scan abdomen pelvis to evaluate his liver. He was okay with this plan. He did not have any spider angiomata, jaundice, palmar erythema or any specific signs for chronic liver disease however his anemia and setting of normal kidney function and without underlying chronic inflammatory disease should be worked up. I have re-examined the patient. There are no clinical changes since date of exam.
--- NOTE | 2021-05-07 12:27 | OP.EGD_ITS ---
Patient Name: Chance Troncoso Procedure Date: 05/07/2021 11:54 AM Date of : 1945 Age: 75 Procedure: Upper GI endoscopy Indications: Epigastric abdominal pain, Iron deficiency anemia Providers: Judah Lara DO Medicines: See the Anesthesia note for documentation of the administered medications Patient Profile: This is a 75 year old male. Refer to note in patient chart for documentation of history and physical. Patient has symptoms of chronic epigastric abdominal pain. Complications: No immediate complications. Procedure: Pre-Anesthesia Assessment: - Prior to the procedure, a History and Physical was performed, and patient medications and allergies were reviewed. The patient is competent. The risks and benefits of the procedure and the sedation options and risks were discussed with the patient. All questions were answered and informed consent was obtained. Patient identification and proposed procedure were verified by the physician in the pre-procedure area. Mental Status Examination: alert and oriented. Airway Examination: normal oropharyngeal airway and neck mobility. Respiratory Examination: clear to auscultation. CV Examination: normal. Prophylactic Antibiotics: The patient does not require prophylactic antibiotics. Prior Anticoagulants: The patient has taken no previous anticoagulant or antiplatelet agents. ASA Grade Assessment: II - A patient with mild systemic disease. After reviewing the risks and benefits, the patient was deemed in satisfactory condition to undergo the procedure. The anesthesia plan was to use moderate sedation / analgesia (conscious sedation). Immediately prior to administration of medications, the patient was re-assessed for adequacy to receive sedatives. The heart rate, respiratory rate, oxygen saturations, blood pressure, adequacy of pulmonary ventilation, and response to care were monitored throughout the procedure. The physical status of the patient was re-assessed after the procedure. After obtaining informed consent, the endoscope was passed under direct vision. Throughout the procedure, the patient's blood pressure, pulse, and oxygen saturations were monitored continuously. The gastroscope was introduced through the mouth, and advanced to the second part of duodenum. The upper GI endoscopy was accomplished without difficulty. The patient tolerated the procedure well. Moderate Sedation: Moderate (conscious) sedation was administered by the endoscopy nurse and supervised by the endoscopist. The patient's oxygen saturation, heart rate, blood pressure and response to care were monitored. Total physician intraservice time was 15 minutes. Scope In: 12:10:04 PM Scope Out: 12:17:17 PM Total Procedure Duration Time 0 hours 7 minutes 13 seconds Findings: LA Grade A (one or more mucosal breaks less than 5 mm, not extending between tops of 2 mucosal folds) esophagitis with no bleeding was found 37 to 39 cm from the incisors. Biopsies were taken with a cold forceps for histology. Verification of patient identification for the specimen was done. Estimated blood loss was minimal. A single 5 mm bleeding angiodysplastic lesion was found in the stomach. Coagulation for hemostasis using heater probe was successful. Estimated blood loss was minimal. The second portion of the duodenum was normal. Impression: - LA Grade A reflux esophagitis. Biopsied. - A single bleeding angiodysplastic lesion in the stomach. Treated with a heater probe. - Normal second portion of the duodenum. Recommendation: - Discharge patient to home. - Resume previous diet. - Continue present medications. - Await pathology results. Procedure Code(s): --- Professional --- 12761, 59, Esophagogastroduodenoscopy, flexible, transoral; with control of bleeding, any method 28259, Esophagogastroduodenoscopy, flexible, transoral; with biopsy, single or multiple 97706, 59, Moderate sedation services provided by the same physician or other qualified health patient care technician performing the diagnostic or therapeutic service that the sedation supports, requiring the presence of an independent trained observer to assist in the monitoring of the patient's level of consciousness and physiological status; initial 15 minutes of intraservice time, patient age 5 years or older CPT copyright 2017 [employer]. All rights reserved. The codes documented in this report are preliminary and upon centerless grinding machine adjuster review may be revised to meet current compliance requirements. Judah Lara DO 05/07/2021 12:26:48 PM This report has been signed electronically. Number of Addenda: 1 Note Initiated On: 05/07/2021 11:54 AM Addendum Number: 1 Addendum Date: 11/21/2021 6:30:29 AM MAC was used as sedation for this procedure. Judah Lara DO 11/21/2021 6:30:32 AM This report has been signed electronically.
--- NOTE | 2021-05-07 12:27 | OP.CCLET_ITS ---
11/21/2021 Shekhar Arana Re : Upper GI endoscopy procedure for Chance Troncoso Dear Yasmeen This procedure was performed on Friday, May 07, 2021. My impressions and recommendations are as follows: Impressions : - LA Grade A reflux esophagitis. Biopsied. - A single bleeding angiodysplastic lesion in the stomach. Treated with a heater probe. - Normal second portion of the duodenum. Recommendations : - Discharge patient to home. - Resume previous diet. - Continue present medications. - Await pathology results. My findings are described in the full procedure note, which is enclosed. If I can be of further assistance, please feel free to contact me at . Sincerely, Judah Lara, 05/07/2021 12:26:48 PM This report has been signed electronically.
== END 2021-05-07 23:59 | disposition home or self-care (01) ==
LOC: EN 10:59 → AC 11:01
PROVIDERS: PCP Family Medicine; Referring Provider Internal Medicine Gastroenterology; Visit Provider Internal Medicine Gastroenterology
PROC: 0DJ08ZZ Inspection of Upper Intestinal Tract, Via Natural or Artificial Opening Endoscopic (ICD-10-PCS; CPT 43235; principal; 2021-05-07 12:10)
DX: K31.811 Angiodysplasia of stomach and duodenum with bleeding (principal); K21.00 Gastro-esophageal reflux disease with esophagitis, without bleeding; D50.9 Iron deficiency anemia, unspecified; I44.0 Atrioventricular block, first degree; I49.3 Ventricular premature depolarization; E03.9 Hypothyroidism, unspecified; M79.7 Fibromyalgia; M19.90 Unspecified osteoarthritis, unspecified site; Z79.899 Other long term (current) drug therapy
CPT/HCPCS: 43239; 43255; 88305; 88313; J7120; J2405

== ENCOUNTER → 2021-06-25 | Outpatient (CLI) | payer MEDICARE, OTHER, SELFPAY ==
[2021-06-25 12:32] LABS: PSA,Total - Annual Screen 0.06 ng/mL (0.00-4.00)
== END | disposition home or self-care (01) ==
LOC: LAB 11:20
PROVIDERS: PCP Family Medicine; Referring Provider Urology; Visit Provider Urology
DX: Z12.5 Encounter for screening for malignant neoplasm of prostate (principal)
CPT/HCPCS: 36415; 84153; G0103

== ENCOUNTER → 2021-06-26 | Outpatient (CLI) | payer MEDICARE, OTHER, SELFPAY ==
[2021-06-26 15:57] LABS: Absolute Lymphocyte Count 0.87 X10^3/uL (0.83-4.51); Absolute Neutrophil Count 2.2 X10^3/uL (2.0-7.7); Basophil# 0.01 X10^3/uL; Basophil% 0.3 % (0-1); Eosinophil# 0.02 X10^3/uL; Eosinophils% 0.6 % (0-5); Hematocrit 32.7 % (40-54); Hemoglobin 11.3 g/dL (13.0-16.5); Lymphocyte # 0.87 X10^3/ul (0.83-4.51); Lymphocyte % 25.7 % (19-41); Mean Corp Hgb Conc 34.6 g/dL (32-36); Mean Corpuscular Hgb 32.6 pg (27.0-32.0); Mean Corpuscular Volume 94.2 fL (80-94); Mean Platelet Vol. 8.6 fl (6.2-12.0); Monocyte# 0.28 X10^3/uL; Monocyte% 8.3 % (0-10); NRBC Flagged by Analyzer 0.6 % (0-5); Neutrophil # 2.16 X10^3/uL (2.7-7.7); Neutrophil % 63.9 % (47-70); Platelet Count 138 K/mm3 (150-450); RBC Distribution Width CV 12.6 % (11.6-14.6); RBC Distribution Width SD 43.4 fl (35.1-43.9); RET-HE 35.1 pg (30-35); Red Blood Count 3.47 M/mm3 (4.6-6.2); Reticulocyte Count 3.45 % (0.5-1.5); White Blood Count 3.4 K/mm3 (4.4-11.0)
[2021-06-26 16:27] LABS: Ferritin 337 ng/mL (26-388); Iron 67 ug/dL (65-175); Iron Binding Capacity,Total 304 ug/dL (250-450)
== END | disposition home or self-care (01) ==
LOC: LAB 15:30
PROVIDERS: PCP Family Medicine; Referring Provider Nurse Practitioner Adult Health; Visit Provider Nurse Practitioner Adult Health
DX: R00.1 Bradycardia, unspecified (principal); D64.9 Anemia, unspecified
CPT/HCPCS: 36415; 82728; 83540; 83550; 85025; 85045

== ENCOUNTER 2021-09-27 09:58 | Outpatient (RCR) | payer MEDICARE, OTHER, SELFPAY ==
[2021-09-27 10:39] LABS: Hematocrit 33.8 % (40-54); Hemoglobin 11.6 g/dL (13.0-16.5); Mean Corp Hgb Conc 34.3 g/dL (32-36); Mean Corpuscular Hgb 32.2 pg (27.0-32.0); Mean Corpuscular Volume 93.9 fL (80-94); Mean Platelet Vol. 9.3 fl (6.2-12.0); POSITIVE COUNT YES; POSITIVE DIFFERENTIAL YES; POSITIVE MORPHOLOGY YES; Platelet Count 135 K/mm3 (150-450); RBC Distribution Width CV 13.2 % (11.6-14.6); RBC Distribution Width SD 45.1 fl (35.1-43.9); RET-HE 34.5 pg (30-35); Reticulocyte Count 4.06 % (0.5-1.5); White Blood Count 3.4 K/mm3 (4.4-11.0)
[2021-09-27 10:42] LABS: Differential Indicated MANUAL DIFF
[2021-09-27 11:05] LABS: ALB/GLOB Ratio 1.1 RATIO (0.9-2.4); AST(SGOT) 14 U/L (15-37); Alanine Aminotransfer ALT/SGPT 18 U/L (16-61); Albumin, Serum 3.4 g/dL (3.2-5.0); Alkaline Phosphatase 87 U/L (45-117); Anion Gap 4 (5-15); BUN 21 mg/dL (7-18); BUN/Creat Ratio 21.7 RATIO (10-20); Calcium,Total 8.7 mg/dL (8.5-10.1); Chloride 106 mmol/L (98-107); Creatinine, Serum 0.97 mg/dL (0.70-1.30); EST Glomerular Filtration Rate 80 mL/min (>60); Est Glom Filt Rate - Afr Amer 97 mL/min (>60); Globulin 3.1 g/dL (2.2-4.2); Glucose 284 mg/dL (74-106); Potassium 3.8 mmol/L (3.5-5.1); Protein, Total 6.5 g/dL (6.4-8.2); Sodium Level 138 mmol/L (136-145)
[2021-09-27 11:36] LABS: Lymphocyte 25 % (19-41); Monocyte 3 % (0-10); Neutrophil-Segmented 72 % (47-70); Total Cells Counted 100 (MANUAL DIFF)
[2021-09-27 11:43] LABS: Absolute Lymphocyte Count 0.85 X10^3/uL (0.83-4.51); Absolute Neutrophil Count 2.4 X10^3/uL (2.0-7.7); Lymphocyte # 0.85 X10^3/ul (0.83-4.51); Platelet Estimate ADEQUATE (ADEQ)
[2021-09-27 11:44] LABS: Red Cell Morphology NORM C+C NORMAL (NORM C&C)
[2021-09-28 13:14] LABS: Pathologist Review Reviewed
== END 2021-09-27 18:00 | disposition home or self-care (01) ==
LOC: LAB 09:58
PROVIDERS: PCP Family Medicine; Visit Provider Internal Medicine Gastroenterology
DX: D64.9 Anemia, unspecified (principal)
CPT/HCPCS: 36415; 80053; 85025; 85045

== ENCOUNTER → 2021-10-03 | Outpatient (CLI) | payer MEDICARE, OTHER, SELFPAY ==
[2021-10-03 11:22] LABS: Bilirubin, Direct 0.23 mg/dL (0.00-0.30)
== END | disposition home or self-care (01) ==
LOC: LAB 10:51
PROVIDERS: PCP Family Medicine; Referring Provider Nurse Practitioner Adult Health; Visit Provider Nurse Practitioner Adult Health
DX: R17 Unspecified jaundice (principal)
CPT/HCPCS: 36415; 82248

== ENCOUNTER 2021-11-10 09:16 | Emergency (ER) | payer MEDICARE, OTHER, SELFPAY ==
[2021-11-10] VITALS (8 sets, daily range): BP systolic 109–141; BP diastolic 51–97; PULSE 78–89; RESP 15–18; TEMP 36.2; O2SAT 93–96; BMI 26.1
--- NOTE | 2021-11-10 09:34 | EKG12_ITS ---
Test Reason : SOB Blood Pressure : / mmHG Vent. Rate : 088 BPM Atrial Rate : 000 BPM P-R Int : 000 ms QRS Dur : 096 ms QT Int : 338 ms P-R-T Axes : 000 -41 013 degrees QTc Int : 408 ms Normal sinus rhythm Left axis deviation Incomplete right bundle branch block Abnormal ECG Confirmed by LAILA MCKENZIE, JAMES ([id number]), graphic editor FRANCESCA VERDUZCO ([id number]) on 11/12/2021 10:39:49 AM Referred By: MATHEW Confirmed By:JAMES ULLOA MD
--- NOTE | 2021-11-10 09:35 | EDS_ITS ---
HPI History of Present Illness Chief Complaint: Shortness of Breath Narrative Narrative: 76-year-old male presenting for shortness of breath. He states is been a couple of weeks that he has felt this way. He was diagnosed with COVID on 10/19/2021. He states he never had a fever, chills, body aches only the dyspnea. Patient was seen on 11/08/2021 at the urgent care locally and was diagnosed with a right upper lobe infiltrate. He never had a chest x-ray when he initially had COVID s o he does not know if this is remnants of COVID-19 or actual infiltrate. He was placed on Levaquin and dexamethasone. Patient states he still feeling subjectively short of breath. His daughter states that his is a cancer patient and have a pulse ox at home which was about 87?88%. The patient is not experiencing any chest pain. He states that Friday he was having some right- sided chest pain and his daughter massaged his chest. She states that she could see his actual muscle spasming in his chest. He had no chest pressure, diaphoresis, lightheadedness. This was the only isolated chest pain that he had. No history of DVT/PE. [facility] Medical History Abdominal pain Anxiety Arthritis Bradycardia Cardiology follow-up encounter Chronic anemia Concussion Esophagitis Fibromyalgia GERD (gastroesophageal reflux disease) History of diverticulitis History of edema History of hiatal hernia History of IBS Hypothyroidism Injury of back Leg cramps Lipoma Loss of consciousness Non-smoker Personal history of colonic polyps Premature ventricular contractions Right upper lobe pulmonary infiltrate Seasonal allergies Skin lesion Thyroid disease Vertigo Wears dentures Home Medications levothyroxine 88 mcg tablet 88 mcg PO DAILY 11/23/15 [History Last Taken 05/07/21 0830] saw palmetto-pumpkin seed oil 160 mg capsule 160 mg PO DAILY bph 04/25/16 [History Last Taken Unknown] magnesium 250 mg tablet 500 mg PO QDAY 12/11/20 [History Last Taken Unknown] calcium-vitamin D3-vitamin K 500 mg-1,000 unit-40 mcg chewable tablet (Citracal- D3 Soft Chew) 2 tab PO DAILY supplement 12/25/20 [History Last Taken Unknown] docusate sodium 50 mg capsule 100 mg PO QHS PRN Constipation 12/25/20 [History Last Taken Unknown] albuterol sulfate 90 mcg/actuation aerosol inhaler 2 inh inhalation Q6H PRN SOB 01/09/21 [History Last Taken Unknown] finasteride 5 mg tablet 5 mg PO DAILY 01/09/21 [History Last Taken Unknown] paroxetine HCl 40 mg tablet 40 mg PO DAILY 01/09/21 [History Last Taken Unknown] Lactobacillus acidophilus 10 billion cell capsule (Probiotic) 10,000 mmu cells PO DAILY 05/03/21 [History Last Taken Unknown] pantoprazole 40 mg tablet,delayed release 40 mg PO DAILY #30 tabs 08/28/21 [Rx Last Taken Unknown] nirmatrelvir 300 mg (150 mg x2)-ritonavir 100 mg tablet,dose pack(EUA) (Paxlovid) See Rx Instructions PO .COMPLEX #30 tabs 10/19/21 [Rx Last Taken Unknown] polysaccharide iron complex 150 mg iron capsule (Ferrex) 150 mg PO DAILY #90 caps 11/05/21 [Rx Last Taken Unknown] dexamethasone 6 mg tablet (Decadron) 6 mg PO DAILY #5 tabs 11/08/21 [Rx Last Taken Unknown] levofloxacin 750 mg tablet 750 mg PO DAILY #10 tabs 11/08/21 [Rx Last Taken Unknown] ketorolac 0.5 % eye drops drp 11/10/21 [History Last Taken Unknown] ofloxacin 0.3 % eye drops drp 11/10/21 [History Last Taken Unknown] prednisolone acetate 1 % eye drops,suspension drp 11/10/21 [History Last Taken Unknown] Allergy/AdvReac Type Severity Reaction Status Date / Time cefaclor [From Ceclor] Allergy Unknown Verified 11/08/21 12:42 contact metal agent Allergy Rash Verified 11/08/21 12:42 nortriptyline Allergy Unknown Verified 11/08/21 12:42 Penicillins Allergy blisters Verified 11/08/21 12:42 on feet alfuzosin [From Uroxatral] AdvReac Unknown Verified 11/08/21 12:42 esomeprazole [From Nexium] AdvReac Itching Verified 11/08/21 12:42 lansoprazole [From Prevacid] AdvReac Upset Verified 11/08/21 12:42 Stomach Family History Father Diabetes Afib pacemaker Mother Heart disease Hx CHF Hypertension Surgical History History of cholecystectomy History of esophagogastroduodenoscopy (EGD) History of prostate surgery History of testicular mass excision History of tonsillectomy and adenoidectomy Hx of colonoscopy Hx of colonoscopy Social History Smoking Status: Never smoker alcohol intake: never substance use type: does not use caffeine: Yes Type: carbonated beverages what type of physical activity do you participate in: none seatbelt use: always do you feel safe at home: Yes ROS ROS ED Constitutional Constitutional ED: Denies chills or fever(s) Eyes Eyes: Denies change in vision or diplopia ENT ENT ED: Denies rhinorrhea or sore throat Cardiovascular Cardiovascular: Reports chest pain Respiratory/Chest Respiratory/Chest: Reports cough, dyspnea and dyspnea on exertion Gastrointestinal Gastrointestinal: Denies abdominal pain Genitourinary Genitourinary ED: Denies dysuria or hematuria Musculoskeletal Musculoskeletal: Denies arthralgias Integumentary Denies abscess or Abrasions Neurologic Neurologic: Denies headache(s) or paresthesias Psychiatric Psychiatric: Denies anxiety or depression EXAM Physical Exam Const Vital Signs: 11/10/21 09:17 11/10/21 09:29 11/10/21 09:41 Temperature 97.2 F L Temperature Source Temporal Pulse Rate 87 Respiratory Rate 16 Respiratory Effort Short of Breath Blood Pressure 141/97 H Blood Pressure Mean 111 Pulse Ox 96 94 Oxygen Delivery Method Room Air Room Air Room Air 11/10/21 09:50 11/10/21 11:00 11/10/21 12:00 Temperature Temperature Source Pulse Rate 88 89 78 Respiratory Rate 18 17 17 Respiratory Effort Blood Pressure 113/51 L 109/66 Blood Pressure Mean 71 80 Pulse Ox 93 95 Oxygen Delivery Method Room Air Room Air 11/10/21 13:04 Temperature Temperature Source Pulse Rate 84 Respiratory Rate 15 Respiratory Effort Blood Pressure 133/68 H Blood Pressure Mean 89 Pulse Ox 94 Oxygen Delivery Method Room Air Positive well nourished General Appearance ED: NAD; Negative for pallor HEENT Reports moist mucous membranes atraumatic Eyes PERRL and EOMs intact bilaterally Neck no lymphadenopathy Resp normal respiratory effort and clear to auscultation bilaterally Auscultation: Negative for rales, rhonchi or wheezes Cardio regular rate and regular rhythm GI non-tender Neuro oriented x3 and CN's II-XII intact bilaterally Sensorium / Orientation: alert Speech: speech normal Motor Exam: strength 5/5 throughout Psych mental status grossly normal Mood & Affect: Negative for anxious Skin no wounds General Skin Exam: Negative for jaundice or pallor MDM MDM MDM Narrative Medical decision making narrative: With shortness of breath. He has been on Levaquin for 2 days. He is not had fever, chills or body aches. He is status post having COVID seventh starting last month. He has had Paxlovid treatment. Patient blood work today and his white blood cell count is 14.5 which could be partially elevated because of the steroids that he has been on. His hemoglobin is slightly lower at 10.3 than it was a month ago. The patient had a heater probe to an angiodysplastic lesion by Dr. Lara that was in his stomach on 05/07/2021. He had follow-up capsule endoscopy on 06/04/2021 which was normal and did not identify any bleeding sources. He is currently on iron supplements. He has not had any black or bloody stools. His chest x-ray on my interpretation shows worse pneumonia in the area of the junction of the right middle lobe and right upper lobe. I did obtain a CTA of the chest to rule out PE given he had recent COVID and slightly hypoxic with ambulation and this shows that there is right upper lobe and right lower lobe infiltrate on CT. When he walks he only gets to 89% with ambulation and he has a steady gait. His initial troponin was 37 and his delta troponin was 35 without any significant changes. Renal function is within normal limits. Sodium slightly low at 129 otherwise electrolytes are unremarkable. I initially attempted to admit the patient because of his worsening pneumonia, white blood cell count, however the hospitalist did not think he required admission. For this reason I spoke with his primary care provider and told him he did feel better with the DuoNeb treatment and he was not requiring oxygen necessarily. He recommended incentive spirometer and to use his albuterol every 4 hours. He does not want to change the Levaquin currently and will just keep this in place. Patient himself was given return precautions and does state that he would prefer to go home. His daughter is here and can help care for him. Patient is discharged home in stable condition. Impression: 1. Leukocytosis 2. Anemia 3. Chest pain 4. History of COVID-19 5. Right upper lobe and right middle lobe pneumonia Lab Data Attestation: I reviewed the patient's lab results. Labs: Laboratory Results - last 24 hr 11/10/21 11/10/21 11/10/21 10:05 10:05 11:05 WBC 14.5 H RBC 3.40 L Hgb 10.3 L Hct 30.9 L MCV 90.9 MCH 30.3 MCHC 33.3 RDW Std Deviation 41.9 RDW Coeff of Jayesh 12.9 Plt Count 210 MPV 9.3 Immature Gran % (Auto) 3.200 H Neut % (Auto) 82.8 H Lymph % (Auto) 5.2 L Emanuel % (Auto) 8.7 Eos % (Auto) 0.0 Baso % (Auto) 0.1 Absolute Neuts (auto) 12.0 H Absolute Lymphs (auto) 0.75 L Nucleated RBC % 0.2 Atypical Lymphocytes RARE Sodium 129 L Potassium 4.6 Chloride 94 L Carbon Dioxide 26.0 Anion Gap 9 BUN 28 H Creatinine 1.07 Estim Creat Clear Calc 59.70 Est GFR (MDRD) Af Amer 86 Est GFR (MDRD) Non-Af 71 BUN/Creatinine Ratio 26.2 H Glucose 259 H Calcium 9.6 Troponin I High Sens 37 35 Radiography Diagnostic Testing: Clinical Impression(s) from Imaging Studies Chest X-Ray 11/10/21 10:20 IMPRESSION: Mildly worsening pneumonic infiltrate in the superior segment of the right lower lobe. Electronically Signed: Júnior Yanes MD at 10:40 EDT , ADDENDUM: 11/10/21 1149 IMPRESSION: undefined Chest CTA 11/10/21 10:30 IMPRESSION: 1. No demonstrated pulmonary embolism or arterial dissection. 2. Segmental consolidated pneumonic infiltrate in the posterolateral basilar aspect of the right upper lobe, with some depression of the superior aspect of the oblique pleural fissure. Hazy additional infiltrate or volume loss also seen in the superior to mid posterior aspect of the right lower lobe. 3. No pleural effusion. 4. There are few reactive right hilar and subcarinal lymph nodes. 5. Atherosclerotic vascular calcifications. Heart size normal. No thoracic aortic aneurysm. 6. Multilevel degenerative changes of the spine. Chronic appearing mild anterior wedging of the T11 vertebra, as well as benign Schmorl''s node invaginating the superior T11 vertebral endplate. 7. Prior cholecystectomy. 8. 13 mm hypodensity of indeterminate etiology and significance in the spleen. Electronically Signed: Júnior Yanes MD at 11:33 EDT , Discharge Plan Triage Chief Complaint: Shortness of Breath ED Provider: John Brownlee Dx/Rx/DC Orders Instructions: ED Pneumonia (Adult) Prescriptions: No Action magnesium 250 mg tablet 500 mg PO QDAY paroxetine HCl 40 mg tablet 40 mg PO DAILY finasteride 5 mg tablet 5 mg PO DAILY albuterol sulfate 90 mcg/actuation HFA aerosol inhaler 2 inh inhalation Q6H PRN (Reason: SOB) polysaccharide iron complex [Ferrex 150] 150 mg iron capsule 150 mg PO DAILY Qty: 90 1RF Paxlovid (EUA) 300 mg (150 mg x 2)-100 mg tablets,dose pack See Rx Instructions PO .COMPLEX Qty: 30 0RF Rx Instructions: take TWO 150 mg tablets of nirmatrelvir with ONE 100 mg tablet of ritonavir twice daily for 5 days PO dexamethasone [Decadron] 6 mg tablet 6 mg PO DAILY Qty: 5 0RF Rx Instructions: (patient no longer taking PAXLOVID) levofloxacin 750 mg tablet 750 mg PO DAILY Qty: 10 0RF levothyroxine 88 MCG tablet 88 mcg PO DAILY saw palmetto-pumpkin seed oil 160 MG capsule 160 mg PO DAILY docusate sodium 50 mg Capsule 100 mg PO QHS PRN (Reason: Constipation) calcium-vitamin D3-vitamin K [Citracal-D3 Soft Chew] 500 mg-1,000 unit-40 mcg Tablet,Chewable 2 tab PO DAILY Probiotic 10 billion cell Capsule 10,000 mmu cells PO DAILY ofloxacin 0.3 % drops ketorolac 0.5 % drops prednisolone acetate 1 % drops,suspension pantoprazole 40 mg tablet,delayed release (DR/EC) 40 mg PO DAILY Qty: 30 2RF Primary Care Provider: Shekhar Arana Referrals: Shekhar Arana MD [Primary Care Provider] -
[2021-11-10] MEDS: Aspirin 81 MG TAB.CHEW 324 MG PO (09:47)
[2021-11-10] MEDS: Ipratropium/Albuterol Sulfate 3 ML AMPUL.NEB INHALATION (09:50)
[2021-11-10 10:15] LABS: Absolute Lymphocyte Count 0.75 X10^3/uL (0.83-4.51); Basophil# 0.02 X10^3/uL; Basophil% 0.1 % (0-1); Hematocrit 30.9 % (40-54); Hemoglobin 10.3 g/dL (13.0-16.5); Lymphocyte # 0.75 X10^3/ul (0.83-4.51); Lymphocyte % 5.2 % (19-41); Mean Corp Hgb Conc 33.3 g/dL (32-36); Mean Corpuscular Hgb 30.3 pg (27.0-32.0); Mean Corpuscular Volume 90.9 fL (80-94); Mean Platelet Vol. 9.3 fl (6.2-12.0); Monocyte# 1.26 X10^3/uL; Monocyte% 8.7 % (0-10); NRBC Flagged by Analyzer 0.2 % (0-5); Neutrophil # 12.04 X10^3/uL (2.7-7.7); Neutrophil % 82.8 % (47-70); POSITIVE MORPHOLOGY YES; Platelet Count 210 K/mm3 (150-450); RBC Distribution Width CV 12.9 % (11.6-14.6); RBC Distribution Width SD 41.9 fl (35.1-43.9); White Blood Count 14.5 K/mm3 (4.4-11.0)
[2021-11-10 10:20] LABS: Differential Indicated SCAN CRITERIA MET
--- NOTE | 2021-11-10 10:20 | RAD_ITS ---
STUDY: X-RAY CHEST REASON FOR EXAM: Male, 76 years old. Chest pain TECHNIQUE: PA and lateral views of the chest. COMPARISON: PA and lateral chest x-ray 11/08/2021 FINDINGS: Consolidation in the superior segment of the right lower lobe is mildly increased from prior study. On the frontal image, this has the appearance of opacity in the anterior right upper lobe abutting the minor fissure, but is clearly evident in the posterior mid chest on the lateral view. The left lung remains clear and expanded. There is no demonstrated pleural abnormality. Normal size heart. Normal mediastinum and radha. Normal visualized pulmonary arteries. There is stable atherosclerotic calcification of the aortic arch. There are stable degenerative changes of the visualized thoracic spine. Normal visualized ribs, clavicles, and shoulders. Surgical clips in the right upper quadrant of the abdomen are consistent with prior cholecystectomy. RAD/Chest PA and Lateral IMPRESSION: Mildly worsening pneumonic infiltrate in the superior segment of the right lower lobe. Electronically Signed: Júnior Yanes MD at 10:40 EDT ,
--- NOTE | 2021-11-10 10:30 | CT_ITS ---
STUDY: CTA CHEST/THORAX REASON FOR EXAM: Male, 76 years old. Chest pain RADIATION DOSAGE (If Supplied By Facility): CTDIvol = ( 16.70 ) mGy, DLP = ( 405.45 ) mGycm TECHNIQUE: The examination was performed with the intravenous administration of IV 100mL Isovue-370. Post-processing of the angiographic images was performed, with multiplanar reformation and 3D reconstruction. Individualized dose optimization techniques were used for this CT. COMPARISON: PA and lateral chest x-ray 1025. FINDINGS: Normal enhancement of the main pulmonary artery and right and left pulmonary arteries. Normal enhancement of the bilateral peripheral pulmonary arteries. There is no demonstrated pulmonary embolism. There is atherosclerotic calcification of the aortic arch and descending thoracic aorta. There is no demonstrated aortic dissection. Normal heart and pericardium. There are calcifications of the coronary arteries. There are a few upper normal-sized right hilar and subcarinal lymph nodes, likely reactive. Normal upper mediastinal and left hilar regions. Normal visualized trachea and bronchi. The lungs are well expanded. There is segmental consolidating pneumonic infiltrate in the posterolateral basilar aspect of the right upper lobe. There is some corresponding depression of the superior aspect of the oblique pleural fissure. There is also hazy subsegmental infiltrate or volume loss in the superior to mid posterior aspect of the right lower lobe. Trace pleural-parenchymal thickening posteriorly along the mid to lower hemithoraces. 1 mm calcified granuloma seen in the posterior right costophrenic sulcus. Normal pleura. Normal chest wall structures. There are diffuse degenerative changes of the thoracic spine. Mild anterior wedging of the T11 vertebra, likely chronic. Well-corticated invagination of the superior T11 vertebral endplate is also consistent with a benign Schmorl''s node. Surgical clips of prior cholecystectomy noted at the gallbladder fossa. [place] 13 x 8 x 8.5 mm hypodensity of indeterminate etiology and significance noted in the lateral aspect of the spleen. CT/CTA Chest W/WO Contrast IMPRESSION: 1. No demonstrated pulmonary embolism or arterial dissection. 2. Segmental consolidated pneumonic infiltrate in the posterolateral basilar aspect of the right upper lobe, with some depression of the superior aspect of the oblique pleural fissure. Hazy additional infiltrate or volume loss also seen in the superior to mid posterior aspect of the right lower lobe. 3. No pleural effusion. 4. There are few reactive right hilar and subcarinal lymph nodes. 5. Atherosclerotic vascular calcifications. Heart size normal. No thoracic aortic aneurysm. 6. Multilevel degenerative changes of the spine. Chronic appearing mild anterior wedging of the T11 vertebra, as well as benign Schmorl''s node invaginating the superior T11 vertebral endplate. 7. Prior cholecystectomy. 8. 13 mm hypodensity of indeterminate etiology and significance in the spleen. Electronically Signed: Júnior Yanes MD at 11:33 EDT ,
[2021-11-10 10:43] LABS: Anion Gap 9 (5-15); BUN 28 mg/dL (7-18); BUN/Creat Ratio 26.2 RATIO (10-20); Calcium,Total 9.6 mg/dL (8.5-10.1); Chloride 94 mmol/L (98-107); Creatinine, Serum 1.07 mg/dL (0.70-1.30); EST Glomerular Filtration Rate 71 mL/min (>60); Est Glom Filt Rate - Afr Amer 86 mL/min (>60); Glucose 259 mg/dL (74-106); Potassium 4.6 mmol/L (3.5-5.1); Sodium Level 129 mmol/L (136-145); Troponin-I HS 37 pg/mL (3.0-78.0)
[2021-11-10 10:52] LABS: Atypical Lymphocyte RARE %
--- NOTE | 2021-11-10 11:14 | NURSING ---
WALKED WITH PT TO RESTROOM WITH PULSE OX, PT SLIGHTLY UNSTEADY BUT FAMILY STATES THIS HAS BEEN HIS NORMAL FOR THE PAST FEW DAYS, PULSE OX DECREASED FROM 94% TO 89% WHILE WALKING, PT REPORTS NO INCREASED DIFFICULTY BREATHING, DENIES DIZZINESS AND STATES IT FEELS EASIER TO BREATH SINCE HIS BREATHING TREATMENT.
[2021-11-10 11:30] LABS: Troponin-I HS 35 pg/mL (3.0-78.0)
== END 2021-11-10 13:24 | disposition home or self-care (01) ==
LOC: ED 10:12
PROVIDERS: Emergency Provider Student in an Organized Health Care Education/Training Program; PCP Family Medicine; Visit Provider Student in an Organized Health Care Education/Training Program
DX: J18.9 Pneumonia, unspecified organism (principal); M79.7 Fibromyalgia; D64.9 Anemia, unspecified; E03.9 Hypothyroidism, unspecified; K21.00 Gastro-esophageal reflux disease with esophagitis, without bleeding; Z79.899 Other long term (current) drug therapy; Z86.16 Personal history of COVID-19
CPT/HCPCS: 71046; 71275; 80048; 84484; 85025; 93005; 94640; 99251; 99283; Q9967; A4216; G0463

== ENCOUNTER → 2022-02-04 | Outpatient (CLI) | payer MEDICARE, OTHER, SELFPAY ==
[2022-02-04 13:15] LABS: T4 Free Direct 1.17 ng/dL (0.76-1.46); Thyroid Stim Hormone (TSH) 1.62 uIU/mL (0.358-3.74)
== END | disposition home or self-care (01) ==
LOC: BFHLAB 10:17
PROVIDERS: PCP Family Medicine; Visit Provider Family Medicine
DX: E03.9 Hypothyroidism, unspecified (principal)
CPT/HCPCS: 36415; 84439; 84443

== ENCOUNTER → 2022-02-20 | Outpatient (CLI) | payer MEDICARE, OTHER, SELFPAY ==
--- NOTE | 2022-02-20 12:43 | CT_ITS ---
INDICATION: Check resolution of RUL infiltrate EXAMINATION: CT CHEST WITHOUT CONTRAST - CT Chest W/O Contrast Injection TECHNIQUE: Helically acquired images were obtained of the chest. A radiation dose optimization technique was used for this scan. IV Contrast dosage and agent: None. COMPARISON: Chest radiograph December 20, 2021 CT of the chest November 10, 2021 FINDINGS: LUNGS, PLEURA AND LARGE AIRWAYS: There is mild residual subsegmental atelectasis in the right upper lobe with interval improvement since October 2021.. No pleural effusion or thickening. No pneumothorax. THYROID: No thyroid lesions. HEART AND PERICARDIUM: Heart size is normal. No pericardial effusion. CORONARY ARTERIES: Mild coronary artery calcification. VESSELS: Atherosclerotic changes of the aorta without evidence for aneurysm. MEDIASTINUM AND QUIRINO: No mediastinal or hilar adenopathy. Esophagus is unremarkable. No hiatal hernia. UPPER ABDOMEN: Gallbladder has been removed surgically. BONES: Dorsal spine demonstrates degenerative change. No suspicious lytic or blastic abnormality. CT/Chest without Contrast IMPRESSION: Incomplete clearing of subsegmental atelectasis in the right upper lobe. Possibility of endobronchial obstruction not excluded. Clinical correlation recommended Electronically Signed: Rickie Parisi MD at 22:46 EST Reading Location ID and State: [facility] / [place] , Service support ,
== END | disposition home or self-care (01) ==
LOC: CT 12:42
PROVIDERS: PCP Family Medicine; Visit Provider Internal Medicine Critical Care Medicine
DX: I25.10 Atherosclerotic heart disease of native coronary artery without angina pectoris (principal); I70.0 Atherosclerosis of aorta; J98.11 Atelectasis; R91.8 Other nonspecific abnormal finding of lung field
CPT/HCPCS: 71250

== ENCOUNTER → 2022-02-21 | Outpatient (CLI) | payer MEDICARE, OTHER, SELFPAY | END | disposition home or self-care (01) | LOC: PSN 13:19 | PROVIDERS: PCP Family Medicine; Referring Provider Internal Medicine Critical Care Medicine; Visit Provider Internal Medicine Critical Care Medicine | DX: J47.9 Bronchiectasis, uncomplicated (principal) | CPT/HCPCS: 94667 ==

== ENCOUNTER → 2022-03-15 | Outpatient (CLI) | payer MEDICARE, OTHER, SELFPAY ==
--- NOTE | 2022-03-16 05:31 | PFTCOMP ---
COMPLETE PULMONARY FUNCTION TEST INTERPRETATION Brief HPI: Patient is a 76-year-old male, currently under the care of myself, who presents to [facility] for complete pulmonary function tests secondary to diagnosis of bronchiectasis. Respiratory therapist reports good effort and reproducible results. Interpretation: Forced expiration spirometry shows no large airways obstructive ventilatory defect with an FEV1 of 99% predicted. There is no significant bronchodilator response by strict ATS criteria. Spirograms are of good quality and plateau slowly, indicating slowly emptying areas of the lungs. The respiratory flow volume loop shows decreased expiratory flow rates at high lung volumes consistent with small airways obstruction. Lung volumes by body plethysmography show a normal total lung capacity at 7.23 L, 111% predicted. All other lung volumes are within normal limits. Diffusion capacity by carbon monoxide is normal at 110% predicted. The airway resistance is normal. No previous pulmonary function tests were available for review. Impression: These pulmonary function tests are grossly within normal limits, but do have some stigmata of small airways disease.
== END | disposition home or self-care (01) ==
LOC: PSN 12:42
PROVIDERS: PCP Family Medicine; Referring Provider Internal Medicine Critical Care Medicine; Visit Provider Internal Medicine Critical Care Medicine
DX: R91.8 Other nonspecific abnormal finding of lung field (principal); U07.1 COVID-19
CPT/HCPCS: 94060; 94726; 94729

== ENCOUNTER → 2022-03-22 | Outpatient (CLI) | payer MEDICARE, OTHER, SELFPAY ==
[2022-03-22 15:24] LABS: Absolute Lymphocyte Count 0.81 X10^3/uL (0.83-4.51); Absolute Neutrophil Count 3.2 X10^3/uL (2.0-7.7); Basophil# 0.01 X10^3/uL; Basophil% 0.2 % (0-1); Eosinophil# 0.05 X10^3/uL; Eosinophils% 1.1 % (0-5); Hematocrit 38.8 % (40-54); Hemoglobin 12.6 g/dL (13.0-16.5); Lymphocyte # 0.81 X10^3/ul (0.83-4.51); Lymphocyte % 18.4 % (19-41); Mean Corp Hgb Conc 32.5 g/dL (32-36); Mean Corpuscular Hgb 31.2 pg (27.0-32.0); Mean Platelet Vol. 10.7 fl (6.2-12.0); Monocyte% 6.8 % (0-10); NRBC Flagged by Analyzer 0.5 % (0-5); Neutrophil # 3.18 X10^3/uL (2.7-7.7); Neutrophil % 72.4 % (47-70); POSITIVE COUNT YES; Platelet Count 109 K/mm3 (150-450); RBC Distribution Width CV 13.1 % (11.6-14.6); RBC Distribution Width SD 46.5 fl (35.1-43.9); Red Blood Count 4.04 M/mm3 (4.6-6.2); White Blood Count 4.4 K/mm3 (4.4-11.0)
[2022-03-22 15:34] LABS: ALB/GLOB Ratio 1.1 RATIO (0.9-2.4); AST(SGOT) 21 U/L (15-37); Alanine Aminotransfer ALT/SGPT 18 U/L (16-61); Albumin, Serum 3.5 g/dL (3.2-5.0); Alkaline Phosphatase 88 U/L (45-117); Anion Gap 9 (5-15); BUN 19 mg/dL (7-18); Calcium,Total 9.1 mg/dL (8.5-10.1); Chloride 105 mmol/L (98-107); Creatinine, Serum 0.82 mg/dL (0.70-1.30); EST Glomerular Filtration Rate 96 mL/min (>60); Est Glom Filt Rate - Afr Amer 116 mL/min (>60); Globulin 3.3 g/dL (2.2-4.2); Glucose 144 mg/dL (74-106); Potassium 4.3 mmol/L (3.5-5.1); Protein, Total 6.8 g/dL (6.4-8.2); Sodium Level 138 mmol/L (136-145)
== END | disposition home or self-care (01) ==
LOC: MFPLAB 11:34 → BFHLAB 11:41
PROVIDERS: PCP Family Medicine; Visit Provider Family Medicine
DX: R10.9 Unspecified abdominal pain (principal)
CPT/HCPCS: 36415; 80053; 85025; 86140

== ENCOUNTER → 2022-07-08 | Outpatient (CLI) | payer MEDICARE, OTHER, SELFPAY ==
[2022-07-08 16:04] LABS: Absolute Lymphocyte Count 0.49 X10^3/uL (0.83-4.51); Absolute Neutrophil Count 2.1 X10^3/uL (2.0-7.7); Eosinophil# 0.01 X10^3/uL; Eosinophils% 0.4 % (0-5); Hematocrit 34.2 % (40-54); Hemoglobin 11.5 g/dL (13.0-16.5); Lymphocyte # 0.49 X10^3/ul (0.83-4.51); Lymphocyte % 17.4 % (19-41); Mean Corp Hgb Conc 33.6 g/dL (32-36); Mean Corpuscular Hgb 31.7 pg (27.0-32.0); Mean Corpuscular Volume 94.2 fL (80-94); Mean Platelet Vol. 9.3 fl (6.2-12.0); Monocyte# 0.17 X10^3/uL; NRBC Flagged by Analyzer 0 % (0-5); Neutrophil # 2.12 X10^3/uL (2.7-7.7); Neutrophil % 75.1 % (47-70); POSITIVE DIFFERENTIAL YES; Platelet Count 170 K/mm3 (150-450); RBC Distribution Width CV 12.8 % (11.6-14.6); RBC Distribution Width SD 44.2 fl (35.1-43.9); Red Blood Count 3.63 M/mm3 (4.6-6.2); White Blood Count 2.8 K/mm3 (4.4-11.0)
[2022-07-08 16:07] LABS: Differential Indicated SCAN CRITERIA MET
[2022-07-08 16:20] LABS: Hemoglobin A1c 7.3 % (3.8-5.6)
[2022-07-08 16:28] LABS: Microalbumin,Random Urine 11.2 mg/L (NO RANGE EST.); Microalbumin:Creatinine Ratio 6.7 mg/g CRE (<30 mg/g CRE)
[2022-07-08 16:30] LABS: Differential Comment SCANNED
[2022-07-08 16:36] LABS: ALB/GLOB Ratio 1.1 RATIO (0.9-2.4); AST(SGOT) 14 U/L (15-37); Alanine Aminotransfer ALT/SGPT 20 U/L (16-61); Albumin, Serum 3.6 g/dL (3.2-5.0); Alkaline Phosphatase 112 U/L (45-117); Anion Gap 8 (5-15); BUN 23 mg/dL (7-18); BUN/Creat Ratio 23.5 RATIO (10-20); Calcium,Total 9.1 mg/dL (8.5-10.1); Chloride 104 mmol/L (98-107); Cholesterol 139 mg/dL (200); Creatinine, Serum 0.98 mg/dL (0.70-1.30); EST Glomerular Filtration Rate 79 mL/min (>60); Est Glom Filt Rate - Afr Amer 96 mL/min (>60); Globulin 3.2 g/dL (2.2-4.2); Glucose 184 mg/dL (74-106); High Density Lipoprotein 76 mg/dL; PSA,Total - Annual Screen 0.06 ng/mL (0.00-4.00); Potassium 4.1 mmol/L (3.5-5.1); Protein, Total 6.8 g/dL (6.4-8.2); Sodium Level 141 mmol/L (136-145); Thyroid Stim Hormone (TSH) 2.85 uIU/mL (0.358-3.74); Triglycerides 68 mg/dL; Very Low Density Lipoprotein 14 mg/dL (5-40)
== END | disposition home or self-care (01) ==
LOC: BFHLAB 13:06
PROVIDERS: PCP Family Medicine; Referring Provider Family Medicine; Visit Provider Family Medicine
DX: E11.9 Type 2 diabetes mellitus without complications (principal); E03.9 Hypothyroidism, unspecified; D64.9 Anemia, unspecified; Z12.5 Encounter for screening for malignant neoplasm of prostate
CPT/HCPCS: 36415; 80053; 80061; 82043; 82570; 83036; 84153; 84443; 85025; G0103

== ENCOUNTER → 2022-09-03 | Outpatient (CLI) | payer MEDICARE, OTHER, SELFPAY ==
--- NOTE | 2022-09-03 17:16 | STRESSREP ---
Stress Test Report Pharmacologic myocardial perfusion stress test. 76-year-old man with intermittent jaw pain Resting EKG demonstrates sinus rhythm with a rate of 89 bpm. Resting blood pressure is 118/70 mmHg. 0.4 mg of regadenoson was infused per usual protocol followed by rapid intravenous saline flush injection. Continuous EKG monitoring was performed. The maximum heart rate was 108 bpm which was 75% of max impacted heart rate the maximum workload was 1 metabolic equivalent. At rest there were no ST or T wave changes noted to suggest ischemia and at peak infusion nonspecific ST changes were noted which did not meet the criteria for ischemia. No clinical angina is noted. The final blood pressure was 114/68 mmHg. Myocardial perfusion protocol. 11.9 mCi of technetium 99m sestamibi was injected at rest. 0.4 mg of regadenoson was infused per usual protocol. At peak infusion 33.5 mCi of technetium 99m sestamibi was injected stress images were obtained stress and rest images were reconstructed and compared in the short axis vertical long and horizontal long axis. Gated images were also obtained. Perfusion SPECT analysis: Review of the stress images demonstrate normal uptake of tracer noted in all areas of the myocardium. The resting images similar demonstrated normal uptake of tracer noted in all areas of the myocardium. No areas of reversibility are noted to suggest ischemia and no previous infarct is noted. Gated SPECT analysis: The gated ejection fraction is 56%. Conclusion: Normal pharmacologic myocardial perfusion stress test. Preserved ejection fraction.
== END | disposition home or self-care (01) ==
LOC: CVS 06:17
PROVIDERS: PCP Family Medicine; Referring Provider Family Medicine; Visit Provider Family Medicine
DX: I25.118 Atherosclerotic heart disease of native coronary artery with other forms of angina pectoris (principal)
CPT/HCPCS: 78452; 93017; A9500; A4216; J2785

== ENCOUNTER → 2022-09-23 | Outpatient (CLI) | payer MEDICARE, OTHER, SELFPAY ==
[2022-09-23 10:08] LABS: Absolute Lymphocyte Count 0.61 X10^3/uL (0.83-4.51); Absolute Neutrophil Count 2.7 X10^3/uL (2.0-7.7); Basophil# 0.01 X10^3/uL; Basophil% 0.3 % (0-1); Eosinophil# 0.02 X10^3/uL; Eosinophils% 0.5 % (0-5); Hematocrit 33.7 % (40-54); Hemoglobin 11.1 g/dL (13.0-16.5); Lymphocyte # 0.61 X10^3/ul (0.83-4.51); Lymphocyte % 16.7 % (19-41); Mean Corp Hgb Conc 32.9 g/dL (32-36); Mean Corpuscular Hgb 30.9 pg (27.0-32.0); Mean Corpuscular Volume 93.9 fL (80-94); Mean Platelet Vol. 8.9 fl (6.2-12.0); Monocyte# 0.24 X10^3/uL; Monocyte% 6.6 % (0-10); NRBC Flagged by Analyzer 1.6 % (0-5); Neutrophil # 2.73 X10^3/uL (2.7-7.7); Neutrophil % 74.5 % (47-70); Platelet Count 125 K/mm3 (150-450); RBC Distribution Width CV 13.5 % (11.6-14.6); Red Blood Count 3.59 M/mm3 (4.6-6.2); White Blood Count 3.7 K/mm3 (4.4-11.0)
[2022-09-26 19:07] LABS: Aspirgillus flavus Negative (Neg:<1:1); Aspirgillus fumigatus Negative (Neg:<1:1); Aspirgillus niger Negative (Neg:<1:1); Immunoglobulin E 45 IU/mL (6-495)
[2022-09-27 02:07] LABS: Alternaria alternata <0.10 kU/L (Class 0); Bermuda Grass <0.10 kU/L (Class 0); Bluegrass, Kentucky <0.10 kU/L (Class 0); Cat Hair/Dander, Standard <0.10 kU/L (Class 0); D farinae Mite <0.10 kU/L (Class 0); D pteronyssinus <0.10 kU/L (Class 0); Dog Epithelia <0.10 kU/L (Class 0); Elm, American White 0.15 kU/L (Class 0/I); Mouse Urine <0.10 kU/L (Class 0); Oak, White <0.10 kU/L (Class 0); Plantain, English <0.10 kU/L (Class 0); Ragweed, Short/Common <0.10 kU/L (Class 0)
== END | disposition home or self-care (01) ==
LOC: LAB 09:43
PROVIDERS: PCP Family Medicine; Referring Provider Nurse Practitioner Acute Care; Visit Provider Nurse Practitioner Acute Care
DX: J30.9 Allergic rhinitis, unspecified (principal)
CPT/HCPCS: 36415; 82785; 85025; 86003; 86606

== ENCOUNTER → 2022-10-21 | Outpatient (CLI) | payer MEDICARE, OTHER, SELFPAY ==
[2022-10-21 17:12] LABS: PSA,Total- Diagnostic 0.06 ng/mL (0.0-4.0)
== END | disposition home or self-care (01) ==
LOC: LAB 15:16
PROVIDERS: PCP Family Medicine; Referring Provider Urology; Visit Provider Urology
DX: N40.1 Benign prostatic hyperplasia with lower urinary tract symptoms (principal)
CPT/HCPCS: 36415; 84153

== ENCOUNTER → 2023-03-03 | Outpatient (CLI) | payer MEDICARE, OTHER, SELFPAY ==
--- NOTE | 2023-03-03 13:09 | RAD_ITS ---
INDICATION: cough -- STAT EXAMINATION/TECHNIQUE: X-RAY - XR Chest 2 Views COMPARISON: Prior study dated: 08/12/2022 FINDINGS: LINES/DEVICES: None. LUNGS: No consolidation, edema or effusion. No pneumothorax. MEDIASTINUM AND CARDIOVASCULAR STRUCTURES: Cardiac silhouette not enlarged. Central airways and mediastinal contour are unremarkable. BONES AND SOFT TISSUES: Unremarkable. RAD/Chest PA and Lateral IMPRESSION: No radiographic evidence of acute cardiopulmonary disease. Electronically Signed: Sheng Krishnamurthy MD at 13:25 EST ,
== END | disposition home or self-care (01) ==
LOC: MTRAD 13:08
PROVIDERS: PCP Family Medicine; Referring Provider Physician Assistant; Visit Provider Physician Assistant
DX: R05.9 Cough, unspecified (principal)
CPT/HCPCS: 71046

== ENCOUNTER 2023-03-11 12:07 | Emergency (ER) | payer MEDICARE, OTHER, SELFPAY ==
[2023-03-11 12:08] VITALS: BP 133/64; PULSE 73; RESP 17; TEMP 35.7; O2SAT 100; BMI 23.7
[2023-03-11 12:19] VITALS: O2SAT 100
[2023-03-11 12:28] LABS: Hematocrit 35.6 % (40-54); Hemoglobin 11.5 g/dL (13.0-16.5); Mean Corp Hgb Conc 32.3 g/dL (32-36); Mean Corpuscular Hgb 30.4 pg (27.0-32.0); Mean Corpuscular Volume 94.2 fL (80-94); POSITIVE COUNT YES; POSITIVE DIFFERENTIAL YES; POSITIVE MORPHOLOGY YES; Platelet Count 176 K/mm3 (150-450); RBC Distribution Width CV 17.4 % (11.6-14.6); RBC Distribution Width SD 59.9 fl (35.1-43.9); Red Blood Count 3.78 M/mm3 (4.6-6.2); White Blood Count 5.8 K/mm3 (4.4-11.0)
--- NOTE | 2023-03-11 12:30 | EKG12_ITS ---
Test Reason : WEAKNESS Blood Pressure : / mmHG Vent. Rate : 076 BPM Atrial Rate : 076 BPM P-R Int : 214 ms QRS Dur : 104 ms QT Int : 376 ms P-R-T Axes : 047 -49 038 degrees QTc Int : 423 ms Sinus rhythm with 1st degree A-V block Incomplete right bundle branch block Left anterior fascicular block Abnormal ECG Confirmed by LAILA MCKENZIE, JAMES ([id number]), editor dictionary FRANCESCA VERDUZCO ([id number]) on 03/12/2023 9:24:41 AM Referred By: John Brownlee Confirmed By:JAMES ULLOA MD
--- NOTE | 2023-03-11 12:32 | RAD_ITS ---
STUDY: X-RAY CHEST REASON FOR EXAM: Male, 77 years old. Chest pain TECHNIQUE: Single AP portable view of the chest. COMPARISON: Comparison is made with prior study dated March 03, 2023. FINDINGS: EKG electrodes are seen. Stable mild increased markings in the right upper lobe abutting the right minor fissure suggestive of a scarring and/or atelectasis. There is no demonstrated pleural abnormality. Normal size heart. Normal mediastinum and radha. Normal visualized pulmonary arteries. There is atherosclerotic calcification of the aortic arch with tortuosity. There are degenerative changes of the visualized thoracic spine. Normal visualized ribs, clavicles, and shoulders. There is no demonstrated abnormality of the visualized soft tissue structures of the upper abdomen. RAD/Chest 1 View (Portable) IMPRESSION: Mild increased markings in the right upper lobe abutting the right minor fissure suggestive of atelectasis and/or scarring. This has improved as compared to prior CT scan of thorax dated February 20, 2022. Electronically Signed: Vito Duron MD at 12:46 EST ,
[2023-03-11 12:36] LABS: Differential Indicated MANUAL DIFF
[2023-03-11 12:46] LABS: Anion Gap 10 (5-15); BUN 25 mg/dL (7-18); BUN/Creat Ratio 22.1 RATIO (10-20); Calcium,Total 9.5 mg/dL (8.5-10.1); Chloride 100 mmol/L (98-107); Creatinine, Serum 1.13 mg/dL (0.70-1.30); EST Glomerular Filtration Rate 67 mL/min (>60); Est Glom Filt Rate - Afr Amer 81 mL/min (>60); Estimated Creatinine Clearance 55.63 ml/min; Glucose 300 mg/dL (74-106); Potassium 3.5 mmol/L (3.5-5.1); Sodium Level 135 mmol/L (136-145); Troponin-I HS 9 pg/mL (3.0-78.0)
--- NOTE | 2023-03-11 12:48 | EX.ED.DYSGE1 ---
HPI History of Present Illness Chief Complaint: Weakness Narrative Narrative: 77-year-old male presenting with generalized weakness. 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 He states he was outside for 20 minutes and less than 10 ?F weather. He states he was able to finish the job and became short of breath. Patient states it took about 20 to 30 minutes to catch his breath again. He states he was sweating pretty profusely. Denies any chest pain. Patient states that last week he had symptoms of a cough/cold. He was seen at the urgent care and they did not test him for anything but did put him on a prednisone taper. Patient states that he has allergy induced asthma but is usually having issues with this. He also has a chronic anemia which she sees hematology for. No black or bloody stools. Patient states he feels like he is back to his baseline. It was reported that the patient had one low blood pressure prior to arrival. [facility] Medical History Abdominal pain Acute bronchitis, unspecified Acute pharyngitis, unspecified Acute sinusitis, unspecified Anxiety Arthritis Bradycardia Cardiology follow-up encounter Chronic anemia Concussion Contact with and (suspected) exposure to other viral communicable diseases Esophagitis Fibromyalgia GERD (gastroesophageal reflux disease) History of diverticulitis History of edema History of hiatal hernia History of IBS Hypothyroidism Impacted cerumen of both ears Injury of back Leg cramps Lipoma Loss of consciousness Non-smoker Personal history of colonic polyps Premature ventricular contractions Right upper lobe pulmonary infiltrate Seasonal allergies Skin lesion Thyroid disease URI (upper respiratory infection) Vertigo Wears dentures Home Medications levothyroxine 88 mcg tablet 88 mcg PO DAILY 11/23/15 [History Last Taken 05/07/21 0830] saw palmetto-pumpkin seed oil 160 mg capsule 160 mg PO DAILY bph 04/25/16 [History Last Taken Unknown] magnesium 250 mg tablet 500 mg PO QDAY 12/11/20 [History Last Taken Unknown] calcium-vitamin D3-vitamin K 500 mg-1,000 unit-40 mcg chewable tablet (Citracal-D3 Soft Chew) 2 tab PO DAILY supplement 12/25/20 [History Last Taken Unknown] docusate sodium 50 mg capsule 100 mg PO QHS PRN Constipation 12/25/20 [History Last Taken Unknown] albuterol sulfate 90 mcg/actuation aerosol inhaler 2 inh inhalation Q6H PRN SOB 01/09/21 [History Last Taken Unknown] finasteride 5 mg tablet 5 mg PO DAILY 01/09/21 [History Last Taken Unknown] paroxetine HCl 40 mg tablet 40 mg PO DAILY 01/09/21 [History Last Taken Unknown] Lactobacillus acidophilus 10 billion cell capsule (Probiotic) 10,000 mmu cells PO DAILY 05/03/21 [History Last Taken Unknown] ketorolac 0.5 % eye drops 1 drp ophthalmic (eye) DAILY 01/09/22 [History Last Taken Unknown] Acapella #1 ea 02/21/22 [Rx Last Taken Unknown] pantoprazole 40 mg tablet,delayed release 40 mg PO DAILY #30 tabs 06/13/22 [Rx Last Taken Unknown] budesonide-formoterol HFA 160 mcg-4.5 mcg/actuation aerosol inhaler (Symbicort) 2 puff inhalation BID #1 ea 08/29/22 [Rx Last Taken Unknown] spacer #1 ea 08/29/22 [Rx Last Taken Unknown] bupropion HCl 150 mg 24 hr tablet, extended release 150 mg PO DAILY 01/23/23 [History Last Taken Unknown] benzonatate 200 mg capsule 200 mg PO TID PRN cough #20 caps 03/03/23 [Rx Last Taken Unknown] Allergy/AdvReac Type Severity Reaction Status Date / Time cefaclor [From Ceclor] Allergy Unknown Verified 03/11/23 12:12 contact metal agent Allergy Rash Verified 03/11/23 12:12 nortriptyline Allergy Unknown Verified 03/11/23 12:12 Penicillins Allergy blisters Verified 03/11/23 12:12 on feet alfuzosin [From Uroxatral] AdvReac Unknown Verified 03/11/23 12:12 esomeprazole [From Nexium] AdvReac Itching Verified 03/11/23 12:12 lansoprazole [From Prevacid] AdvReac Upset Verified 03/11/23 12:12 Stomach Family History Father Diabetes Afib pacemaker Mother Heart disease Hx CHF Hypertension Surgical History History of cholecystectomy History of esophagogastroduodenoscopy (EGD) History of prostate surgery History of testicular mass excision History of tonsillectomy and adenoidectomy Hx of colonoscopy Hx of colonoscopy Social History household members: spouse housing: house Smoking Status: Never smoker alcohol intake: never substance use type: does not use caffeine: Yes Type: carbonated beverages what type of physical activity do you participate in: none seatbelt use: always do you feel safe at home: Yes ROS ROS ED Constitutional Constitutional ED: Reports sweats; Denies chills or fever(s) Eyes Eyes: Denies blurry vision or change in vision ENT ENT ED: Denies ear pain or sore throat Cardiovascular Cardiovascular: Denies chest pain, palpitations or racing heartbeat Respiratory/Chest Respiratory/Chest: Reports dyspnea; Denies cough or sputum Gastrointestinal Gastrointestinal: Denies abdominal pain, constipation, diarrhea, nausea or vomiting Genitourinary Genitourinary ED: Denies dysuria, hematuria or urinary frequency Musculoskeletal Musculoskeletal: Denies arthralgias, myalgias or neck pain Integumentary Denies abscess, Abrasions or rash Neurologic Neurologic: Denies headache(s), paresthesias or weakness Psychiatric Psychiatric: Denies anxiety, depression, suicidal ideation or suicidal thoughts Endocrine Endocrinology: Denies polydipsia or polyuria EXAM Physical Exam Const Vital Signs: 03/11/23 12:08 03/11/23 12:14 03/11/23 12:19 Temperature 96.2 F L Temperature Source Temporal Pulse Rate 73 Respiratory Rate 17 Respiratory Effort Normal Respiratory Pattern Normal Blood Pressure 133/64 H Blood Pressure Mean 87 Pulse Ox 100 100 Oxygen Delivery Method Room Air Room Air Positive well nourished General Appearance ED: NAD; Negative for pallor HEENT Reports moist mucous membranes Eyes PERRL and EOMs intact bilaterally Neck no lymphadenopathy Chest Wall inspection of chest normal Resp normal respiratory effort and clear to auscultation bilaterally Auscultation: Negative for rales, rhonchi or wheezes Cardio regular rate and regular rhythm Neuro oriented x3 Sensorium / Orientation: alert Motor Exam: strength 5/5 throughout Psych mental status grossly normal Skin no rashes or lesions noted General Skin Exam: Negative for jaundice or pallor MDM MDM MDM Narrative Medical decision making narrative: 77-year-old male presenting with shortness of breath and weakness. 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 He denies any chest pain. States about 30 minutes later he started to feel like his symptoms were improved. EMS was called due to his dyspnea and there was reported 1 low blood pressure prior to arrival. Differential includes ACS, pneumonia, dehydration, anemia, electrolyte normalities, hyperglycemia, COVID, influenza, RSV. CBC will be obtained to assess white blood cell count, hemoglobin, platelets. BMP to assess renal function, electrolytes, glucose, anion gap. High-sensitivity troponin EKG to assess for ischemia/dysrhythmia. Chest x-ray to rule out pneumonia. Urinalysis to assess for UTI. Currently patient well-appearing. Vital signs are stable he is afebrile. Oxygen 100% on room air. Lungs clear to auscultation bilaterally heart regular rate and rhythm. EKG on my interpretation shows a normal sinus rhythm with a ventricular rate of 76 bpm with first-degree AV block. CBC shows white blood cell count of 5.8. Hemoglobin 11.5. Platelets are normal 176. Renal function electrolytes within normal limits. Urinalysis negative for infection. High-sensitivity troponin and BNP are both normal. Chest x-ray my interpretation shows no acute process. Radiologist interprets this and agrees. COVID, influenza, RSV are all negative. Patient able to ambulate in the [place] with steady gait. At this point I feel patient stable for discharge. Impression: 1. Dyspnea 2. Weakness Lab Data Attestation: I reviewed the patient's lab results. Labs: Laboratory Results - last 24 hr 03/11/23 03/11/23 12:25 13:20 WBC 5.8 RBC 3.78 L Hgb 11.5 L Hct 35.6 L MCV 94.2 H MCH 30.4 MCHC 32.3 RDW Std Deviation 59.9 H RDW Coeff of Jayesh 17.4 H Plt Count 176 MPV 9.0 Neut % (Auto) Not Reportable Absolute Neuts (auto) 5.2 Absolute Lymphs (auto) 0.35 L Total Counted 100 Neutrophils % (Manual) 90 H Lymphocytes % (Manual) 6 L Monocytes % (Manual) 2 Myelocytes % 2 H Diff Path Review May foll Platelet Estimate ADEQUATE RBC Morphology NORM C+C Sodium 135 L Potassium 3.5 Chloride 100 Carbon Dioxide 25.0 Anion Gap 10 BUN 25 H Creatinine 1.13 Estim Creat Clear Calc 55.63 Est GFR (MDRD) Af Amer 81 Est GFR (MDRD) Non-Af 67 BUN/Creatinine Ratio 22.1 H Glucose 300 H Calcium 9.5 Troponin I High Sens 9 B-Natriuretic Peptide 20.1 Urine Color Yellow Urine Clarity Sl. Cloudy Urine pH 7.0 Ur Specific [place] 1.015 Urine Protein 30 H Urine Glucose (UA) 1000 H Urine Ketones 5 H Urine Occult Blood Negative Urine Nitrite Negative Urine Bilirubin 1 H Urine Urobilinogen 4 H Ur Leukocyte Esterase 25 H Urine RBC 0 SEEN Urine WBC 0-5 SEEN Ur Squamous Epith Cells 0-5 SEEN Urine Bacteria 0 SEEN Hyaline Casts 0-5 SEEN Urine Mucus 0 SEEN Radiography Diagnostic Testing: Clinical Impression(s) from Imaging Studies Chest X-Ray 03/11/23 12:32 IMPRESSION: Mild increased markings in the right upper lobe abutting the right minor fissure suggestive of atelectasis and/or scarring. This has improved as compared to prior CT scan of thorax dated February 20, 2022. Electronically Signed: Vito Duron MD at 12:46 EST , Discharge Plan Triage Chief Complaint: Weakness ED Provider: John Brownlee Dx/Rx/DC Orders Instructions: ED Weakness (Uncertain Cause) Prescriptions: No Action magnesium 250 mg tablet 500 mg PO QDAY paroxetine HCl 40 mg tablet 40 mg PO DAILY finasteride 5 mg tablet 5 mg PO DAILY albuterol sulfate 90 mcg/actuation HFA aerosol inhaler 2 inh inhalation Q6H PRN (Reason: SOB) (DME) Acapella See Rx Instructions .ROUTE .MEDSUPPLY Qty: 1 0RF Rx Instructions: As directed budesonide-formoterol [Symbicort] 160-4.5 mcg/actuation HFA aerosol inhaler 2 puff inhalation BID Qty: 1 3RF Rx Instructions: administer with spacer, rinse mouth after each use (DME) spacer See Rx Instructions .ROUTE .MEDSUPPLY Qty: 1 0RF Rx Instructions: As directed benzonatate 200 mg capsule 200 mg PO TID PRN (Reason: cough) Qty: 20 0RF levothyroxine 88 MCG tablet 88 mcg PO DAILY saw palmetto-pumpkin seed oil 160 MG capsule 160 mg PO DAILY docusate sodium 50 mg Capsule 100 mg PO QHS PRN (Reason: Constipation) calcium-vitamin D3-vitamin K [Citracal-D3 Soft Chew] 500 mg-1,000 unit-40 mcg Tablet,Chewable 2 tab PO DAILY Probiotic 10 billion cell Capsule 10,000 mmu cells PO DAILY bupropion HCl 150 mg tablet extended release 24 hr 150 mg PO DAILY Patient Comments: TAKE 1 TABLET BY MOUTH EVERY DAY ketorolac 0.5 % drops 1 drp ophthalmic (eye) DAILY pantoprazole 40 mg tablet,delayed release (DR/EC) 40 mg PO DAILY Qty: 30 6RF Primary Care Provider: Suresh Messina Referrals: Suresh Messina DO [Primary Care Provider] - Disposition Disposition: Home, Self Care Capacity Legal Litigation Legal Secretary Reflex Medical hold order details:: IF a medical hold is selected below, a suggested order for a MEDICAL HOLD will reflex upon signing the document. Next of kin: [place] law dictates a PRIORITY LIST for identifying legal decision-maker/legal next of kin in the following order (LNOK): 1st: The patient?s legal guardian, if any 2nd: The patient's spouse (if status is questionable, consult Risk Management) 3rd: The patient?s adult child(merry) (majority, if multiple children) 4th: The patient?s parents 5th: The patient?s adult siblings (majority, if multiple children siblings)
[2023-03-11 12:59] LABS: BNP,B-Type NATRIURETIC PEPTIDE 20.1 pg/mL (0-100)
[2023-03-11 13:09] LABS: Lymphocyte 6 % (19-41); Monocyte 2 % (0-10); Myelocyte 2 % (0-0); Neutrophil-Segmented 90 % (47-70); Platelet Estimate ADEQUATE (ADEQ); Red Cell Morphology NORM C+C NORMAL (NORM C&C); Total Cells Counted 100 (MANUAL DIFF)
[2023-03-11 13:10] LABS: Absolute Lymphocyte Count 0.35 X10^3/uL (0.83-4.51); Absolute Neutrophil Count 5.2 X10^3/uL (2.0-7.7); Lymphocyte # 0.35 X10^3/ul (0.83-4.51)
[2023-03-11] MEDS: 0.9% Normal Saline (1000mL) 1,000 ML 999 ML IV (13:11)
[2023-03-11 13:27] LABS: Bacteria 0 SEEN /hpf (None Seen); Mucous, Urine 0 SEEN /hpf (<or=2+); Red Blood Cells-Urine 0 SEEN /hpf (0-5)
[2023-03-11 13:32] LABS: Color, Urine Yellow (Yellow); Glucose, Dipstick 1000 mg/dl (Normal); Ketone-Dipstick 5 mg/dl (Negative); Leukocyte Esterase-Dipstick 25 /ul (Negative); Nitrite-Dipstick Negative (Negative); Occult Blood-Urine Negative /ul (Negative); Protein-Dipstick 30 mg/dl (Negative); Specific Gravity, Urine 1.015 (1.002-1.030); Urine Clarity Sl. Cloudy (Clear); Urine Urobilinogen 4 mg/dl (Normal)
[2023-03-11 13:39] LABS: Urine Bilirubin Dipstick 1 mg/dL (Negative)
[2023-03-11 13:42] LABS: Hyaline Cast 0-5 SEEN /lpf (0-5); Squamous Epithelial Cells - UA 0-5 SEEN /hpf (0-5); White Blood Cells 0-5 SEEN /hpf (0-5)
[2023-03-11 14:21] VITALS: BP 115/56; PULSE 80; RESP 18; O2SAT 100
[2023-03-13 09:33] LABS: Pathologist Review Reviewed
== END 2023-03-11 14:22 | disposition home or self-care (01) ==
PROVIDERS: Emergency Provider Student in an Organized Health Care Education/Training Program; PCP Family Medicine; Referring Provider Student in an Organized Health Care Education/Training Program; Visit Provider Student in an Organized Health Care Education/Training Program
DX: R53.1 Weakness (principal); R06.02 Shortness of breath
CPT/HCPCS: 71045; 80048; 81001; 83880; 84484; 85025; 87631; 93005; 96360; 99285; J7030

== ENCOUNTER → 2023-04-07 | Outpatient (CLI) | payer MEDICARE, OTHER, SELFPAY | END | disposition home or self-care (01) | LOC: LABSPEC 15:26 | PROVIDERS: PCP Family Medicine; Referring Provider Otolaryngology; Visit Provider Otolaryngology | DX: J32.8 Other chronic sinusitis (principal) | CPT/HCPCS: 87070; 87205 ==

== ENCOUNTER → 2023-07-18 | Outpatient (CLI) | payer MEDICARE, OTHER, SELFPAY ==
[2023-07-18 12:54] LABS: Cholesterol 130 mg/dL (200); High Density Lipoprotein 80 mg/dL; T4 Free Direct 1.13 ng/dL (0.76-1.46); Thyroid Stim Hormone (TSH) 6.35 uIU/mL (0.358-3.74); Triglycerides 34 mg/dL; Very Low Density Lipoprotein 7 mg/dL (5-40)
[2023-07-18 12:59] LABS: Microalbumin,Random Urine 6.2 mg/L (NO RANGE EST.); Microalbumin:Creatinine Ratio 5.4 mg/g CRE (<30 mg/g CRE)
[2023-07-18 13:49] LABS: Hemoglobin A1c 6.8 % (3.8-5.6)
== END | disposition home or self-care (01) ==
LOC: BFHLAB 09:11
PROVIDERS: PCP Family Medicine; Referring Provider Family Medicine; Visit Provider Family Medicine
DX: E11.9 Type 2 diabetes mellitus without complications (principal); E03.9 Hypothyroidism, unspecified
CPT/HCPCS: 36415; 80061; 82043; 82570; 83036; 84439; 84443

== ENCOUNTER → 2023-08-29 | Outpatient (CLI) | payer MEDICARE, OTHER, SELFPAY ==
--- NOTE | 2023-08-29 14:58 | US_ITS ---
STUDY: THYROID ULTRASOUND REASON FOR EXAM: Male, 77 years old. R CERVICAL ADENOPATHY TECHNIQUE: Ultrasound evaluation of the thyroid was performed with real-time and static paul-scale imaging. COMPARISON: 10/27/2020 FINDINGS: RIGHT LOBE: The right lobe of the thyroid gland measures 3.9 x 1.2 x 0.8 cm. There is a homogeneous echotexture. Nodule 1:12 x 6 x 10 mm cystic anechoic wider than tall smoothly margined nodule with no echogenic foci (TR 1) in the mid right lobe consistent with a colloid cyst. Nodule 2:7 x 7 x 5 mm cystic anechoic wider than tall smoothly margined nodule with no echogenic foci (TR 1) in the posterior right lobe consistent with a colloid cyst. LEFT LOBE: The left lobe of the thyroid gland measures 2.8 x 1.0 x 0.8 cm. There is a homogeneous echotexture. There are no demonstrated solid, cystic or complex lesions. ISTHMUS: The isthmus measures 1 mm thick. . The regional lymph nodes are normal. 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 Electronically Signed: Silvio Leonard MD at 16:23 EDT ,
== END | disposition home or self-care (01) ==
LOC: US 14:56
PROVIDERS: PCP Family Medicine; Referring Provider Family Medicine; Visit Provider Family Medicine
DX: R09.A2 Foreign body sensation, throat (principal); R59.0 Localized enlarged lymph nodes; E03.9 Hypothyroidism, unspecified
CPT/HCPCS: 76536

== ENCOUNTER → 2023-09-17 | Outpatient (CLI) | payer MEDICARE, OTHER, SELFPAY ==
--- NOTE | 2023-09-17 15:26 | CT_ITS ---
INDICATION: NECK MASS EXAMINATION: CT NECK WITH CONTRAST - CT Soft Tissue Neck W/ Contrast Injection TECHNIQUE: Helically acquired images were obtained of the neck following IV contrast. The protocol utilizes one or more of the following dose reduction techniques: automated exposure control, adjustment of mA and/or kV according to patient size,and/or use of iterative reconstruction technique. IV Contrast dosage and agent: 75 mL of Isovue-370 RADIATION DOSAGE (If Supplied By Facility): CTDIvol = ( 14.09 ) mGy, DLP = ( 461.08 ) mGycm COMPARISON: Prior study dated: Ultrasound 08/29/2023 FINDINGS: NASOPHARYNX: Unremarkable. SUPRAHYOID NECK: Unremarkable oropharynx, oral cavity, parapharyngeal space, and retropharyngeal space. INFRAHYOID NECK: Unremarkable larynx, hypopharynx, and supraglottis. THYROID: 1 cm hypoattenuating nodule in the right lobe. SALIVARY GLANDS: Unremarkable. LYMPH NODES: No cervical or supraclavicular lymphadenopathy. VASCULAR STRUCTURES: Mild atherosclerotic calcifications are noted. No significant stenosis seen. No occlusion. VISUALIZED PORTIONS OF THE ORBITS, PARANASAL SINUSES, MASTOID AIR CELLS AND SKULL BASE: Unremarkable. BONES: Multilevel degenerative changes are seen throughout the spine. Scattered lucency throughout the cervical vertebral bodies favored as osteopenia. THORACIC INLET: Clear lung apices. CT/Soft Tissue Neck WITH Contrast IMPRESSION: No mass. No lymphadenopathy. Right thyroid nodule, recently evaluated with ultrasound. Electronically Signed: Donald Simon MD at 16:02 EDT ,
[2023-09-17 16:05] LABS: CREATININE FINGERSTICK < 1.0 mg/dL (0.70-1.30); EGFR FINGERSTICK > 60.0000 mL/min (>60)
== END | disposition home or self-care (01) ==
LOC: CT 15:25
PROVIDERS: PCP Family Medicine; Referring Provider Otolaryngology; Visit Provider Otolaryngology
DX: R22.1 Localized swelling, mass and lump, neck (principal)
CPT/HCPCS: 70491; Q9967; A4216

== ENCOUNTER 2023-11-25 14:45 | Emergency (ER) | payer MEDICARE, OTHER, SELFPAY ==
[2023-11-25] VITALS (7 sets, daily range): BP systolic 114–139; BP diastolic 68–83; PULSE 60–83; RESP 16–23; TEMP 36.8–37.2; O2SAT 92–100; BMI 22.9
--- NOTE | 2023-11-25 15:10 | EKG12_ITS ---
Test Reason : DIZZY Blood Pressure : / mmHG Vent. Rate : 061 BPM Atrial Rate : 061 BPM P-R Int : 196 ms QRS Dur : 104 ms QT Int : 376 ms P-R-T Axes : 043 -42 -12 degrees QTc Int : 378 ms Sinus rhythm with marked sinus arrhythmia Left axis deviation Incomplete right bundle branch block Abnormal ECG Confirmed by LAILA MCKENZIE, JAMES ([id number]), city editor FRANCESCA VERDUZCO ([id number]) on 11/27/2023 1:24:32 PM Referred By: Confirmed By:JAMES ULLOA MD
--- NOTE | 2023-11-25 15:10 | RAD_ITS ---
INDICATION: Trauma, fall, injury EXAMINATION/TECHNIQUE: X-RAY - XR Hip Unilateral with Pelvis when performed; Min 4 Views COMPARISON: No relevant prior comparison study available FINDINGS: PELVIC BONES: No displaced fracture, destructive or sclerotic lesions. Note that overlapping bowel shadows may however obscure fine detail. Sacroiliac joints are unremarkable. No widening of the pubic symphysis. HIPS: Hip joint spaces well-maintained bilaterally. No acute fractures. SOFT TISSUES: No soft tissue swelling or gas. RAD/HIP, UNI W/ Pelvis 2-3 Views IMPRESSION: No evidence of displaced pelvic or hip fracture. Electronically Signed: Juliocesar Jordan MD at 16:29 EDT ,
--- NOTE | 2023-11-25 15:11 | CT_ITS ---
INDICATION: Trauma EXAMINATION: CT CERVICAL SPINE - CT Spine Cervical W/O Contrast Injection TECHNIQUE: Helically acquired images were obtained of the cervical spine. 2D reformatted images were reviewed. A radiation dose optimization technique was used for this scan. IV Contrast dosage and agent: None. COMPARISON: None. FINDINGS: VERTEBRAE: No acute fracture of the cervical spine. 3 mm spondylolisthesis at C7-T1, otherwise anatomic alignment. DISCS and SPINAL CANAL: Degenerative discogenic changes. No critical stenosis. NECK SOFT TISSUES: No prevertebral soft tissue swelling. LUNG APICES: No acute pulmonary findings. CT/Spine Cervical without Contras IMPRESSION: Degenerative changes. No acute fracture of the cervical spine. Electronically Signed: Juliocesar Jordan MD at 16:24 EDT ,
--- NOTE | 2023-11-25 15:11 | CT_ITS ---
INDICATION: Trauma, fall, injury EXAMINATION: CT BRAIN - CT Head or Brain W/O Contrast Injection TECHNIQUE: Multiple axial images were obtained of the head without intravenous contrast. A radiation dose optimization technique was used for this scan. IV Contrast dosage and agent: None. COMPARISON: None. FINDINGS: BRAIN PARENCHYMA: No intra- or extra-axial hemorrhage. No evidence of acute infarct. No intracranial mass or mass effect. There is preservation of the paul/white matter interface. Posterior fossa structures are unremarkable. Volume loss with low attenuation of the periventricular white matter typical of chronic small vessel disease. CSF SPACES: Appropriate for age. No hydrocephalus. Basal cisterns are patent. CALVARIUM, SKULL BASE, PARANASAL SINUSES AND MASTOID AIR CELLS: Clear. No acute fractures. CT/Brain/Head without Contrast IMPRESSION: Volume loss with chronic white matter changes. No acute intracranial findings. Electronically Signed: Juliocesar Jordan MD at 16:27 EDT ,
--- NOTE | 2023-11-25 15:15 | EX.ED.DYSGE1 ---
HPI History of Present Illness Chief Complaint: Dizziness Narrative Narrative: Chief complaint and HPI: Mechanical fall and lightheadedness. 78-year-old male with history of MDS, BPH, GERD presents for evaluation after mechanical fall. Patient states he has a history of a TBI in which he gets intermittent lightheadedness and vertigo. Patient states that earlier this morning he was walking down the steps when he bent over, developed lightheadedness, and fell down wooden steps. He fell onto concrete. He denies LOC. He states is not unusual for him to get lightheaded when bending over. Patient states that he ambulated on his own afterwards. Tolerated lunch. Patient states shortly later he went back into the basement in which he bent over, became lightheaded, and sat down. EMS was called. Currently endorses right hip pain from the fall. Did have an episode of emesis after the last episode of lightheadedness. Denies any headache, vision changes, URI symptoms, chest pain, shortness of breath, abdominal pain, dysuria, numbness/tingling, neurological deficit, weakness. Patient states he sometimes has increased lightheadedness when his electrolytes are off. Not on blood thinner. Review of systems: See HPI Medications: As listed on the chart Allergies: As listed on the chart PFSH: Per chart Vital signs: As listed on the chart. Reviewed. Physical exam: Gen: A&O x3, NAD Head: Normocephalic, atraumatic Eyes: No sclera icterus, conjunctiva clear, PERRL, EOMI ENT: Moist mucous membranes, no swelling/lacerations/blood in the mouth or the nares, No nasal septal hematoma, no facial tenderness Neck: Trachea midline, No JVD, Nontender CV: RRR, no murmurs, no chest wall TTP mild ecchymosis to the right anterior chest Resp: Lungs CTA BL, no w/r/c GI: Abd soft, non-distended, non-tender, no r/r/g Musc: Full ROM, no deformity, no spinal TTP, no melissa step-offs, tender to palpation of the right hip Skin: Warm, dry, scattered ecchymosis throughout the body Neuro: Alert, oriented, grossly intact, sensation intact, GCS 15 Psych: Cooperative, appropriate mood and affect [facility] Medical History (Reviewed 10/13/23 @ 10:55 by Dianne Donnelly [employer]NTHETIC STAPLE EXTRUDER, SYNTHETIC [employer]APLE EXTRUDER-C) MDS (myelodysplastic syndrome) Acute pharyngitis, unspecified Acute sinusitis, unspecified Impacted cerumen of both ears Acute bronchitis, unspecified Contact with and (suspected) exposure to other viral communicable diseases URI (upper respiratory infection) Right upper lobe pulmonary infiltrate Esophagitis Abdominal pain Hypothyroidism Wears dentures Anxiety Thyroid disease Arthritis Injury of back Loss of consciousness History of diverticulitis History of IBS History of hiatal hernia Non-smoker Seasonal allergies Leg cramps History of edema Cardiology follow-up encounter Personal history of colonic polyps Vertigo Concussion Chronic anemia Lipoma Skin lesion Fibromyalgia GERD (gastroesophageal reflux disease) Premature ventricular contractions Bradycardia Home Medications ?Medication ?Instructions ?Recorded ?Last Taken ?Type magnesium 250 mg tablet 500 mg PO QDAY 12/11/20 Unknown History calcium 500 mg-vitamin D3 1,000 2 tab PO DAILY supplement 12/25/20 Unknown History unit-vitamin K 40 mcg chewable tablet (Citracal-D3 Soft Chew) docusate sodium 50 mg capsule 100 mg PO QHS PRN Constipation 12/25/20 Unknown History finasteride 5 mg tablet 5 mg PO DAILY 01/09/21 Unknown History paroxetine HCl 40 mg tablet 40 mg PO DAILY 01/09/21 Unknown History Lactobacillus acidophilus 10 10,000 mmu cells PO DAILY 05/03/21 Unknown History billion cell capsule (Probiotic) Acapella #1 ea 02/21/22 Unknown Rx spacer #1 ea 08/29/22 Unknown Rx bupropion HCl 150 mg 24 hr tablet, 150 mg PO DAILY 01/23/23 Unknown History extended release pantoprazole 40 mg tablet,delayed 40 mg PO DAILY #30 tabs 04/07/23 Unknown Rx release tamsulosin 0.4 mg capsule 0.4 mg PO QHS 04/08/23 Unknown History levothyroxine 100 mcg tablet 100 mcg PO QDAY 07/29/23 Unknown History fluticasone propionate 50 1 spray intranasal QDAY 10/13/23 Unknown History mcg/actuation nasal spray,suspension tralokinumab-ldrm 150 mg/mL 300 mg subcut Q2W 10/13/23 Unknown History subcutaneous syringe (Adbry) albuterol sulfate 90 mcg/actuation 2 inh inhalation Q6H PRN SOB #8.5 11/17/23 Unknown Rx aerosol inhaler grams fluticasone furoate 200 1 inh inhalation QDAY #60 ea 11/18/23 Unknown Rx mcg-vilanterol 25 mcg/dose inhalation powder (Breo Ellipta) prednisone 20 mg tablet 60 mg (3 x 20 mg) PO QDAY #15 tabs 11/18/23 Unknown Rx Allergy/AdvReac Type Severity Reaction Status Date / Time cefaclor (From Ceclor) Allergy Unknown Verified 10/13/23 10:43 contact metal agent Allergy Rash Verified 10/13/23 10:43 nortriptyline Allergy Unknown Verified 10/13/23 10:43 Penicillins Allergy blisters Verified 10/13/23 10:43 on feet alfuzosin (From Uroxatral) AdvReac Unknown Verified 10/13/23 10:43 esomeprazole (From Nexium) AdvReac Itching Verified 10/13/23 10:43 lansoprazole (From Prevacid) AdvReac Upset Verified 10/13/23 10:43 Stomach Family History (Reviewed 10/13/23 @ 10:55 by Dianne Donnelly [employer]HE[employer]LE EXTRUDER, SYNTHETIC STAPLE EXTRUDER-C) Father Diabetes Afib pacemaker Mother Heart disease Hx CHF Hypertension Surgical History (Reviewed 10/13/23 @ 10:55 by Dianne Donnelly [employer]NTHETIC STAPLE EXTRUDER, SYNTHETIC STAPLE EXTRUDER-C) History of bilateral cataract extraction Hx of colonoscopy History of esophagogastroduodenoscopy (EGD) Hx of colonoscopy History of prostate surgery History of testicular mass excision History of tonsillectomy and adenoidectomy History of cholecystectomy Social History (Reviewed 10/13/23 @ 10:55 by Dianne Donnelly [employer]NTHETIC STAPLE EXTRUDER, SYNTHETIC STAPLE EXTRUDER-C) household members: spouse housing: house Smoking Status: Never smoker alcohol intake: never substance use type: does not use caffeine: Yes Type: carbonated beverages what type of physical activity do you participate in: none seatbelt use: always do you feel safe at home: Yes EXAM Physical Exam Const Vital Signs: 11/25/23 14:46 11/25/23 15:48 11/25/23 16:45 Temperature 98.9 F Temperature Source Oral Pulse Rate 62 83 Respiratory Rate 18 16 Respiratory Effort Normal Respiratory Depth Normal Respiratory Pattern Normal Blood Pressure 133/68 H 139/83 H Blood Pressure Mean 89 101 Pulse Ox 92 95 99 Oxygen Delivery Method Room Air Room Air 11/25/23 18:00 11/25/23 18:51 11/25/23 20:00 Temperature Temperature Source Pulse Rate 79 78 60 Respiratory Rate 19 H 23 H 18 Respiratory Effort Respiratory Depth Respiratory Pattern Blood Pressure 124/78 H 114/73 119/72 Blood Pressure Mean 93 86 87 Pulse Ox 98 99 100 Oxygen Delivery Method Room Air Room Air 11/25/23 21:37 Temperature 98.2 F Temperature Source Pulse Rate 67 Respiratory Rate 18 Respiratory Effort Respiratory Depth Respiratory Pattern Blood Pressure 137/78 H Blood Pressure Mean 97 Pulse Ox 97 Oxygen Delivery Method MDM MDM MDM Narrative Medical decision making narrative: 78-year-old male with history of MDS presents for evaluation of mechanical fall secondary to intermittent lightheadedness. Has a history of intermittent lightheadedness/vertigo after TBI. Not on blood thinners. No LOC. Differential diagnosis includes but is not limited to symptomatic vertigo, electrolyte abnormality, UTI, fracture, intracranial bleed, contusion, ACS. NS bolus and Zofran ordered. Trauma workup ordered. EKG and chest x-ray reviewed, see below. Pelvics x-ray without fracture or dislocation. CBC without leukocytosis. Patient has baseline anemia and thrombocytopenia. BMP without MERNA. Patient with hyperglycemia- similar to previous labs. Magnesium level normal. Troponin negative x 2. UA negative for UTI. CT head and neck without any traumatic injury. On reevaluation, patient is asymptomatic. He tolerated p.o. intake without any nausea, vomiting. He is ambulated to the bathroom multiple times without any difficulty. At this point in time, no clear etiology for patient's symptoms may be secondary to his known intermittent lightheadedness due to his TBI. However patient does have new EKG changes with sinus pauses therefore cardiology was contacted. Air Value Tester, Dr. Hinkle was in the cardiac Improvement Spec and therefore was unable to discuss patient for quite a while. Once available patient was discussed. EKG was reviewed by him. Plan is for discharge home with Holter monitor for 48 hours and follow-up with cardiology in the clinic. Patient and family updated of all the results and confirmed understand the plan. Return precautions explained. Patient stable to discharge home. EKG: Interpreted by me/EM physician: EKG shows normal sinus rhythm with sinus pause of about 1 second. He has a known incomplete right bundle branch block.. He has new T wave inversions in lead III. Heart rate 61. Previous EKG shows sinus rhythm with first-degree AV block. Incomplete right bundle jany block. Diagnostic: Interpreted by me/EM physician: Chest x-ray without pneumonia, effusion, pneumothorax, cardiomegaly. Pelvic and right hip x-ray without fracture or dislocation. Impression: 1. Episodic lightheadedness 2. Sinus pause 3. Chronic anemia and thrombocytopenia 4. Known hyperglycemia Lab Data Labs: Laboratory Results - last 24 hr 11/25/23 11/25/23 11/25/23 15:25 16:18 17:37 WBC 8.4 RBC 3.68 L Hgb 10.8 L Hct 33.5 L MCV 91.0 MCH 29.3 MCHC 32.2 RDW Std Deviation 51.9 H RDW Coeff of Jayesh 17.5 H Plt Count 144 L MPV 8.7 Neut % (Auto) Not Reportable Absolute Neuts (auto) 5.6 Absolute Lymphs (auto) 1.85 Total Counted 100 Neutrophils % (Manual) 67 Lymphocytes % (Manual) 22 Monocytes % (Manual) 5 Metamyelocytes % 3 H Myelocytes % 3 H Nucleated RBCs/100 WBC 2 [address] Review May foll Toxic Granulation RARE Platelet Estimate ADEQUATE RBC Morphology N CHROM Hypochromasia RARE Anisocytosis RARE Macrocytosis RARE Sodium 131 L Potassium 3.7 Chloride 96 L Carbon Dioxide 28.0 Anion Gap 7 BUN 27 H Creatinine 0.92 Estim Creat Clear Calc 67.23 Est GFR (MDRD) Af Amer 102 Est GFR (MDRD) Non-Af 84 BUN/Creatinine Ratio 29.3 H Glucose 266 H Calcium 9.3 Magnesium 1.7 Troponin I High Sens 18 13 Urine Color Yellow Urine Clarity Clear Urine pH 7.0 Ur Specific [place] 1.010 Urine Protein Negative Urine Glucose (UA) 50 H Urine Ketones Negative Urine Occult Blood Negative Urine Nitrite Negative Urine Bilirubin Negative Urine Urobilinogen 4 H Ur Leukocyte Esterase Negative Urine RBC 0 SEEN Urine WBC 0-5 SEEN Ur Squamous Epith Cells 0-5 SEEN Calcium Oxalate Crystal RARE Amorphous Sediment 1+ URATE Urine Bacteria RARE Hyaline Casts 0-5 SEEN Urine Mucus 0 SEEN Radiography Diagnostic Testing: Clinical Impression(s) from Imaging Studies Hip/Pelvis X-Ray 11/25/23 15:10 IMPRESSION: No evidence of displaced pelvic or hip fracture. Electronically Signed: Juliocesar Jordan MD at 16:29 EDT , Brain CT 11/25/23 15:11 IMPRESSION: Volume loss with chronic white matter changes. No acute intracranial findings. Electronically Signed: Juliocesar Jordan MD at 16:27 EDT , Cervical Spine CT 11/25/23 15:11 IMPRESSION: Degenerative changes. No acute fracture of the cervical spine. Electronically Signed: Juliocesar Jordan MD at 16:24 EDT , Chest X-Ray 11/25/23 15:45 IMPRESSION: No radiographic evidence of acute cardiopulmonary disease. Electronically Signed: Juliocesar Jordan MD at 16:30 EDT , Discharge Plan Triage Chief Complaint: Dizziness ED Provider: Luis Miguel Campoverde Dx/Rx/DC Orders Clinical Impression: Episodic lightheadedness, Sinus pause Instructions: Dizziness Fainting Causes Prescriptions: No Action magnesium 250 mg tablet 500 mg PO QDAY paroxetine HCl 40 mg tablet 40 mg PO DAILY finasteride 5 mg tablet 5 mg PO DAILY (DME) Acapella See Rx Instructions .ROUTE .MEDSUPPLY Qty: 1 0RF Rx Instructions: As directed (DME) spacer See Rx Instructions .ROUTE .MEDSUPPLY Qty: 1 0RF Rx Instructions: As directed fluticasone propionate 50 mcg/actuation spray,suspension 1 spray intranasal QDAY Adbry 150 mg/mL syringe 300 mg subcut Q2W Rx Instructions: administer as 2 consecutive 150 mg injections tamsulosin 0.4 mg capsule 0.4 mg PO QHS Patient Comments: TAKE 1 CAPSULE BY MOUTH EVERYDAY AT BEDTIME levothyroxine 100 mcg tablet 100 mcg PO QDAY docusate sodium 50 mg Capsule 100 mg PO QHS PRN (Reason: Constipation) calcium-vitamin D3-vitamin K [Citracal-D3 Soft Chew] 500 mg-1,000 unit-40 mcg Tablet,Chewable 2 tab PO DAILY Probiotic 10 billion cell Capsule 10,000 mmu cells PO DAILY bupropion HCl 150 mg tablet extended release 24 hr 150 mg PO DAILY Patient Comments: TAKE 1 TABLET BY MOUTH EVERY DAY pantoprazole 40 mg tablet,delayed release (DR/EC) 40 mg PO DAILY Qty: 30 6RF albuterol sulfate 90 mcg/actuation HFA aerosol inhaler 2 inh inhalation Q6H PRN (Reason: SOB) Qty: 8.5 11RF prednisone 20 mg tablet 60 mg PO QDAY Qty: 15 0RF Rx Instructions: administer with food or milk fluticasone furoate-vilanterol [Breo Ellipta] 200-25 mcg/dose blister with device 1 inh inhalation QDAY Qty: 60 6RF Rx Instructions: after inhalation, rinse mouth with water and spit out; do not swallow Primary Care Provider: Suresh Messina Referrals: Suresh Messina DO [Primary Care Provider] - 3-5 Days Fito Hinkle MD [Med Staff - Active Staff] - 3-5 Days Activity Restrictions/Additional Instructions: Return back to the emergency department if symptoms change or recur. Wear your Holter monitor. Follow-up with cardiology and physician Print Language: Gabonese Disposition Disposition: Home, Self Care Discharge Date/Time: 11/25/23 21:37
[2023-11-25 15:30] LABS: Hematocrit 33.5 % (40-54); Hemoglobin 10.8 g/dL (13.0-16.5); Mean Corp Hgb Conc 32.2 g/dL (32-36); Mean Corpuscular Hgb 29.3 pg (27.0-32.0); Mean Platelet Vol. 8.7 fl (6.2-12.0); POSITIVE COUNT YES; POSITIVE MORPHOLOGY YES; Platelet Count 144 K/mm3 (150-450); RBC Distribution Width CV 17.5 % (11.6-14.6); RBC Distribution Width SD 51.9 fl (35.1-43.9); Red Blood Count 3.68 M/mm3 (4.6-6.2); White Blood Count 8.4 K/mm3 (4.4-11.0)
[2023-11-25] MEDS: 0.9% Normal Saline (1000mL) 1,000 ML 999 ML IV (15:31)
[2023-11-25] MEDS: Ondansetron 4 MG/2 ML Vial IV (15:31)
[2023-11-25 15:33] LABS: Differential Indicated MANUAL DIFF
--- NOTE | 2023-11-25 15:45 | RAD_ITS ---
INDICATION: Trauma, fall EXAMINATION/TECHNIQUE: X-RAY - portable upright AP chest x-ray COMPARISON: 03/11/2023 FINDINGS: LINES/DEVICES: None. LUNGS: Stable fibrosis right midlung field. No consolidation, vascular congestion or pleural effusion. MEDIASTINUM AND CARDIOVASCULAR STRUCTURES: Cardiac silhouette stable within normal limits. BONES AND SOFT TISSUES: No acute changes. RAD/Chest 1 View (Portable) IMPRESSION: No radiographic evidence of acute cardiopulmonary disease. Electronically Signed: Juliocesar Jordan MD at 16:30 EDT ,
[2023-11-25 15:49] LABS: Anion Gap 7 (5-15); BUN 27 mg/dL (7-18); BUN/Creat Ratio 29.3 RATIO (10-20); Calcium,Total 9.3 mg/dL (8.5-10.1); Chloride 96 mmol/L (98-107); Creatinine, Serum 0.92 mg/dL (0.70-1.30); EST Glomerular Filtration Rate 84 mL/min (>60); Est Glom Filt Rate - Afr Amer 102 mL/min (>60); Estimated Creatinine Clearance 67.23 ml/min; Glucose 266 mg/dL (74-106); Magnesium 1.7 mg/dL (1.6-2.6); Potassium 3.7 mmol/L (3.5-5.1); Sodium Level 131 mmol/L (136-145); Troponin-I HS (w/2H Reflex) 18 pg/mL (3.0-78.0)
[2023-11-25 16:04] LABS: Lymphocyte 22 % (19-41); Metamyelocyte 3 % (0-1); Monocyte 5 % (0-10); Myelocyte 3 % (0-0); Neutrophil-Segmented 67 % (47-70); Nucleated Red Bld Cells,Manual 2 % (0-5); Total Cells Counted 100 (MANUAL DIFF)
[2023-11-25 16:06] LABS: Absolute Lymphocyte Count 1.85 X10^3/uL (0.83-4.51); Absolute Neutrophil Count 5.6 X10^3/uL (2.0-7.7); Toxic Granulation RARE
[2023-11-25 16:07] LABS: Anisocytosis RARE; Hypochromasia RARE; Macrocytosis RARE; Platelet Estimate ADEQUATE (ADEQ); Red Cell Morphology N CHROM NORMAL (NORM C&C)
[2023-11-25 16:29] LABS: Mucous, Urine 0 SEEN /hpf (<or=2+); Red Blood Cells-Urine 0 SEEN /hpf (0-5)
[2023-11-25 16:32] LABS: Color, Urine Yellow (Yellow); Glucose, Dipstick 50 mg/dl (Normal); Ketone-Dipstick Negative (Negative); Leukocyte Esterase-Dipstick Negative /ul (Negative); Nitrite-Dipstick Negative (Negative); Occult Blood-Urine Negative /ul (Negative); Protein-Dipstick Negative (Negative); Urine Bilirubin Dipstick Negative (Negative); Urine Clarity Clear (Clear); Urine Urobilinogen 4 mg/dl (Normal)
[2023-11-25 16:54] LABS: Squamous Epithelial Cells - UA 0-5 SEEN /hpf (0-5)
[2023-11-25 16:55] LABS: Hyaline Cast 0-5 SEEN /lpf (0-5)
[2023-11-25 16:58] LABS: Bacteria RARE /hpf (None Seen); Calcium Oxalate Crystals Ur RARE /hpf (<or=2+)
[2023-11-25 16:59] LABS: Amorphous Sediment 1+ URATE
[2023-11-25 17:00] LABS: White Blood Cells 0-5 SEEN /hpf (0-5)
[2023-11-25 17:27] LABS: Reflex Troponin-HS? (from REC) Y
[2023-11-25 18:16] LABS: Troponin-I HS 13 pg/mL (3.0-78.0)
[2023-11-26 13:51] LABS: Pathologist Review Reviewed
== END 2023-11-25 21:37 | disposition home or self-care (01) ==
PROVIDERS: Emergency Provider Surgery; PCP Family Medicine; Visit Provider Surgery
DX: R42 Dizziness and giddiness (principal); I45.5 Other specified heart block; D64.9 Anemia, unspecified; D69.6 Thrombocytopenia, unspecified; R73.9 Hyperglycemia, unspecified; Z87.820 Personal history of traumatic brain injury
CPT/HCPCS: 70450; 71045; 72125; 73502; 80048; 81001; 83735; 84484; 85025; 93005; 96361; 96374; 99284; J7030; A4216; J2405

== ENCOUNTER → 2023-11-25 | Outpatient (CLI) | payer MEDICARE, OTHER, SELFPAY | END | disposition home or self-care (01) | LOC: CVS 20:56 | PROVIDERS: PCP Family Medicine; Referring Provider Specialist; Visit Provider Specialist | DX: I49.9 Cardiac arrhythmia, unspecified (principal) | CPT/HCPCS: 93225; 93226 ==

== ENCOUNTER → 2023-12-18 | Outpatient (CLI) | payer MEDICARE, OTHER, SELFPAY ==
[2023-12-18 11:11] LABS: Free T3 1.7 pg/mL (2.18-3.98); T4 Free Direct 1.02 ng/dL (0.76-1.46)
== END | disposition home or self-care (01) ==
PROVIDERS: PCP Family Medicine; Referring Provider Physician Assistant Medical; Visit Provider Physician Assistant Medical
DX: R00.1 Bradycardia, unspecified (principal); I49.3 Ventricular premature depolarization
CPT/HCPCS: 36415; 84439; 84443; 84481

== ENCOUNTER 2023-12-26 09:00 | Outpatient (RCR) | payer MEDICARE, OTHER, SELFPAY ==
--- NOTE | 2023-12-19 07:42 | HP.PTEVAL_ITS ---
Patient's Visit Information Visit Information Visit Information: NITISH MUNOZ is a 78 year old M referred to Physical Therapy by Dr. Suresh Messina DO with a diagnosis of Dizzyness. Date of Evaluation: 12/19/23 Physical Therapist: Justice Barrett, ZANDERT, OCS, CSCS Visit Plan Frequency: 1x/Week Duration: 4-6 Weeks Plan: weekly as needed for positional checks(+ L HD today) and balance activities/oculomotor as needed. Progression to HEP Subjective Subjective: Getting dizzy again. Started 2 weeks ago taking bag down the steps one at a time adn looking down adn raised back up and got dizzy all of a sudden, fell down step and hurt trunk but they are OK. Laid on steps for a while, crawled up steps and sat on couch. Still dizzy a little at that point. Got dizzy again later that day. Squad called and went to hospital. Testing at hospital was all good. Wore heart monitor and it was fine. Blood tests were fine. Not much spinning in last few weeks but feels a little unstable sometimes for short periods. Maybe turning away from sink or moving head. eyes feel like they are going up and down now and then. Activities are OK, avoids due to pain in trunk outdoor work. Sleep is OK. sleeps in recliner due to not bothering . Retired. Basic ADLs all I, steps are OK. Objective Objective: Walks into PT slowly but I and safe. Trasnfers chair and bed with UE, painful in trunk since fall but I. Steps reciprocal with 1 rail and pulling with arms. Some neuropathy and lack of confidence in his gait pattern. cervical AROM WFL and without pain, UE AROM WFL and without pain. - R HD + L HD for quick up torsional nystagmus and dizzy, treated with ivis and then much better second time. Heel raises are hard and weak Balance/Special Test Scores Functional Gait Assessment Score: 25 % Disability: 16.6700 CATSIB Score (Max score 120 seconds): 120 Dizziness Score: 10 Goals Goal 1:: Abolish vertigo and feeling 100% back to normal Goal Time Frame: 4-6 Weeks Goal 2:: FGA Goal Time Frame: 4-6 Weeks Goal 3:: DHI 0 Goal Time Frame: 4-6 Weeks Rehabilitation Potential Physical Therapy Diagnosis: Hints of BPPV effecting confident funciton, n euroapthy effecting confidence in gait. Rehabilitation Potential: Good Anticipated Interventions Patient/Client Instruction: Educate patient on: Condition and Risk Factors For the Purpose of:: To increase tolerance to activity/condition/position Therapeutic Exercise to Include: Balance training Comment: positional ex activities For the Purpose of:: To increase tolerance to activity/condition/position, To improve balance and To improve safety Text: Thank you for the opportunity to evaluate your patient. For Medicare and Medicare HMO plans, please review the plan of care and approve it. It will need to be FAXED BACK to us at [phone] for Medicare purposes. For Medicare only, by signing this I certify the plan of care. Please let me know if there are questions or concerns regarding this plan of care. Physician Signature: Date:
--- NOTE | 2023-12-26 09:17 | HP.PTDCSUM ---
Discharge Summary D/C summary: It has been my pleasure to treat NITISH MUNOZ referred by Dr. Suresh Messina DO, with the diagnosis of Dizzyness for a total of 2 visit(s). Discharge Date: 12/26/23 Please see the following information for a summary of their discharge status. Subjective Subjective: I am more stable. Helped alot. No spinning or noticeable dizzyness. Stooped to trim molina a couple days without issues. Sleeping is not an issue. Life is pretty normal. Overall Improvement % Improvement: 100 Objective Objective/Function: - hallpike naima. Improved balance with FGa and feeling back to normal Goals Goal 1:: Abolish vertigo and feeling 100% back to normal Goal Progress: Goal Met Goal 2:: FGA Goal Progress: Goal Met Goal 3:: DHI 0 Goal Progress: Goal Met Plan Plan: d/c D/C Information d/c sentence: If there are questions or concerns regarding this patient's physical therapy, please feel free to call me at [phone]. Thank you for the referral of this patient. Sincerely, Justice Barrett, DPT, OCS, CSCS Balance/Gait/Functional tests Balance/Special Test Scores Functional Gait Assessment Score: 28 % Disability: 6.6700 CATSIB Score (Max score 120 seconds): 120 Dizziness Score: 0 Improvement % Improvement: 100
== END 2023-12-26 19:00 | disposition home or self-care (01) ==
LOC: PT 09:00
PROVIDERS: PCP Family Medicine; Visit Provider Family Medicine
DX: R42 Dizziness and giddiness (principal)
CPT/HCPCS: 97161; 97530

== ENCOUNTER → 2024-04-19 | Outpatient (CLI) | payer MEDICARE, OTHER, SELFPAY ==
--- NOTE | 2024-04-19 14:11 | US_ITS ---
PROCEDURE: Ultrasound of the salivary glands. REASON FOR EXAM: Small mass at the base of the left parotid gland. COMPARISON: Available TECHNIQUE: Targeted ultrasound of the left parotid gland was performed. FINDINGS: Ultrasound of the bilateral parotid and submandibular glands was obtained. The right submandibular gland measures up to 5.3 cm, 5.1 cm on the left. The right submandibular gland measures up to 3.7 cm, compared to 3.5 cm on the left. No discrete sonographic abnormality of the submandibular glands or right parotid gland. Sonographically normal-appearing lymph nodes near the bilateral parotid glands. At the superficial margin of the left parotid gland, at the site of the palpable abnormality, there is a 2 cm fairly simple appearing cystic structure, which extends into the deep margin of the overlying subcutaneous fat. No definite internal blood flow is demonstrated. No solid-appearing lesion of the left parotid gland. US/Head/Neck Soft Tissue IMPRESSION: 2 cm simple appearing cystic structure at the superficial margin of the left pa rotid gland, extending into the deep margin of the overlying subcutaneous fat, at the region of interest. No definite internal bl ood flow is demonstrated. No peripheral nodularity within this cystic structure. Suggest close clinical and/or sonogra [facility] follow-up. If there is clinical concern or patient anxiety, this could be aspirated under ultrasound guidance. No solid-appearing nodules of the major salivary glands. [facility]
== END | disposition home or self-care (01) ==
LOC: US 14:10
PROVIDERS: PCP Family Medicine; Referring Provider Family Medicine; Visit Provider Family Medicine
DX: M79.89 Other specified soft tissue disorders (principal)
CPT/HCPCS: 76536

== ENCOUNTER → 2024-06-14 | Outpatient (CLI) | payer MEDICARE, OTHER, SELFPAY ==
[2024-06-14 12:07] LABS: Hemoglobin A1c 7.4 % (<=5.6)
[2024-06-14 12:08] LABS: Microalbumin,Random Urine < 12.0 mg/L (NO RANGE EST.); Microalbumin:Creatinine Ratio UNABLE TO CALCULATE mg/g CRE
[2024-06-14 13:24] LABS: Cholesterol 153 mg/dL (<=200); High Density Lipoprotein 70 mg/dL; Low Density Lipoprotein Calc. 71 mg/dL; Triglycerides 58 mg/dL; Very Low Density Lipoprotein 12 mg/dL (5-40); cholesterol:hdl ratio screen 2.18
== END | disposition home or self-care (01) ==
PROVIDERS: PCP Family Medicine; Referring Provider Family Medicine; Visit Provider Family Medicine
DX: E11.9 Type 2 diabetes mellitus without complications (principal); E03.9 Hypothyroidism, unspecified
CPT/HCPCS: 36415; 80061; 82043; 82570; 83036; 84443

== ENCOUNTER → 2024-06-15 | Outpatient (CLI) | payer MEDICARE, OTHER, SELFPAY ==
--- NOTE | 2024-06-15 13:20 | ECHOD_ITS ---
Reason For Study Reason For Study: ARRHYTHMIA Procedure This was a 2D Doppler, Color Flow transthoracic echocardiogram. Exam performed in department. Left Ventricle Normal LV size. Left ventricular systolic function is normal. The left ventricular ejection fraction is 60 %. Stage 1 diastolic dysfunction. No regional wall motion abnormalities noted. Right Ventricle Normal RV size. Normal systolic function. Atria Normal left atrium. Normal right atrium. Mitral Valve Normal mitral valve. Tricuspid Valve Normal tricuspid valve. Aortic Valve Trisinus/trileaflet aortic valve. Moderate focal aortic valve thickening. Peak aortic valve gradient 30 mmHg. Mean aortic valve gradient 16 mmHg. Mild aortic stenosis. Pulmonic Valve Normal pulmonic valve. Great Vessels Normal aortic root. The pulmonary artery is normal size. Inferior vena cava collapse with respiration. Pericardium/Pleural No pericardial effusion. MMode/2D Measurements & Calculations LVIDd: 4.5 cm IVSd: 1.1 cm LVOT diam: 2.1 cm LVIDs: 3.0 cm LVPWd: 1.1 cm LVOT area: 3.5 cm2 RVDd: 3.9 cm FS: 32.1 % Ao root diam: 3.3 cm LAV(MOD-bp): 58.0 ml LVAd ap4: 35.7 cm2 LAV(MOD-bp) Indexed: 31.4 ml/m2 LVLd ap4: 8.8 cm LAV(MOD-sp2): 52.3 ml EDV(MOD-sp4): 119.5 ml LAV(MOD-sp4): 53.3 ml EDV(sp4-el): 122.9 ml LVAs ap4: 20.1 cm2 LVLs ap4: 7.3 cm ESV(MOD-sp4): 46.2 ml ESV(sp4-el): 46.6 ml EF(MOD-sp4): 61.4 % EF(sp4-el): 62.1 % SV(MOD-sp4): 73.3 ml SV(sp4-el): 76.3 ml LA A4 area: 21.4 cm2 SI(MOD-sp4): 39.7 ml/m2 LA dimension(2D): 2.8 cm RA A4 area: 17.0 cm2 TAPSE: 2.3 cm Time Measurements MV dec time: 0.30 sec Doppler Measurements & Calculations MV E max nic: 71.6 cm/sec Lat Peak E' Nic: 9.0 cm/sec Med Peak E' Nic: 6.8 cm/sec MV A max nic: 99.2 cm/sec E/E' lat: 8.0 E/E' med: 10.5 MV E/A: 0.72 Ao V2 max: 272.9 cm/sec LV V1 max: 124.3 cm/sec SV(LVOT): 101.5 ml Ao max P.8 mmHg LV V1 max P.2 mmHg Ao V2 mean: 187.3 cm/sec LV V1 mean P.8 mmHg Ao mean P.7 mmHg LV V1 mean: 92.3 cm/sec Ao V2 VTI: 56.6 cm LV V1 VTI: 29.2 cm AV (velocity ratio): 0.52 ORLIN(I,D): 1.8 cm2 ORLIN(V,D): 1.6 cm2 PA V2 max: 137.6 cm/sec TR max nic: 261.8 cm/sec TR max P.4 mmHg ECHO/Echo Complete Interpretation Summary Normal LV size. Left ventricular systolic function is normal. The left ventricular ejection fraction is 60 %. Moderate focal aortic valve thickening. Mean aortic valve gradient 16 mmHg. Mild aortic stenosis. Stage 1 diastolic dysfunction. Ordering Physician: Vishal Monte Referring Physician: SHREYAS AMEZQUITA Performed By: Lacie German RDCS
== END | disposition home or self-care (01) ==
LOC: CVS 13:19
PROVIDERS: PCP Family Medicine; Referring Provider Internal Medicine Cardiovascular Disease; Visit Provider Internal Medicine Cardiovascular Disease
DX: I49.3 Ventricular premature depolarization (principal)
CPT/HCPCS: 93306

== ENCOUNTER → 2024-07-22 | Outpatient (CLI) | payer MEDICARE, OTHER, SELFPAY ==
[2024-07-22 13:44] LABS: PSA,Total - Annual Screen 0.02 ng/mL (0.02-4.00)
== END | disposition home or self-care (01) ==
LOC: MTLAB 11:01
PROVIDERS: PCP Family Medicine; Referring Provider Family Medicine; Visit Provider Family Medicine
DX: Z12.5 Encounter for screening for malignant neoplasm of prostate (principal)
CPT/HCPCS: 36415; 84153; G0103

== ENCOUNTER → 2024-11-04 | Outpatient (CLI) | payer MEDICARE, OTHER, SELFPAY ==
[2024-11-04 16:42] LABS: PSA,Total- Diagnostic 0.02 ng/mL (0.00-4.00)
== END | disposition home or self-care (01) ==
LOC: LAB 15:19
PROVIDERS: PCP Family Medicine; Referring Provider Urology; Visit Provider Urology
DX: N40.1 Benign prostatic hyperplasia with lower urinary tract symptoms (principal)
CPT/HCPCS: 36415; 84153

== ENCOUNTER → 2024-12-09 | Outpatient (CLI) | payer MEDICARE, OTHER, SELFPAY ==
[2024-12-09 15:15] LABS: Hematocrit 34.6 % (40-54); Hemoglobin 11.2 g/dL (13.0-16.5); Mean Corp Hgb Conc 32.4 g/dL (32-36); Mean Corpuscular Volume 94.8 fL (80-94); Mean Platelet Vol. 8.7 fl (6.2-12.0); Platelet Count 133 K/mm3 (150-450); RBC Distribution Width CV 14.6 % (11.6-14.6); RBC Distribution Width SD 50.7 fl (35.1-43.9); Red Blood Count 3.65 M/mm3 (4.6-6.2); White Blood Count 2.9 K/mm3 (4.4-11.0)
[2024-12-09 15:51] LABS: Anion Gap 8 (5-15); BUN 21 mg/dL (4-19); BUN/Creat Ratio 24.3 RATIO (10-20); Calcium,Total 9.3 mg/dL (7.6-11.0); Carbon Dioxide 27.7 mmol/L (21.0-32.0); Chloride 99 mmol/L (98-108); Glucose 159 mg/dL (70-99); Potassium 4.3 mmol/L (3.3-5.1)
== END | disposition home or self-care (01) ==
LOC: LAB 14:40
PROVIDERS: PCP Family Medicine; Referring Provider Urology; Visit Provider Urology
DX: Z01.812 Encounter for preprocedural laboratory examination (principal)
CPT/HCPCS: 36415; 80048; 85027

== ENCOUNTER 2024-12-17 10:06 | Observation (INO) | payer MEDICARE, OTHER, SELFPAY ==
--- NOTE | 2024-12-16 08:40 | EKG12_ITS ---
Test Reason : PREOP Blood Pressure : */* mmHG Vent. Rate : 84 BPM Atrial Rate : 84 BPM P-R Int : 204 ms QRS Dur : 138 ms QT Int : 390 ms P-R-T Axes : 36 -75 12 degrees QTcB Int : 460 ms Normal sinus rhythm Right bundle branch block Left anterior fascicular block Bifascicular block Abnormal ECG Confirmed by Antoine Fuentes ([id number]), editor sound MANOLO MCKNIGHT ([id number]) on 12/17/2024 7:08:20 AM Referred By: Kev Diaz Confirmed By: Antoine Fuentes
[2024-12-16 10:50] LABS: Prothrombin Time (Protime)PT. 14.3 SECONDS (11.7-14.9)
[2024-12-16 10:51] LABS: Partial Thromboplast Time 30.9 Seconds (24.1-36.2)
--- NOTE | 2024-12-16 17:13 | PAT.ANESEVAL ---
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 When Was Last Pacemaker Check QUESTION #4 FULL TEXT: You/Your Family Experience fever (hyperthermia) with Anesthesia Last Oral Intake Last Oral intake: Last Oral Intake NPO since Meds taken in AM with sips of water? Meds patient instructed to take am of surgery PONV PONV - costume shop coordinator: PONV - costume shop coordinator Female No 12/15/24 15:10 HX of Motion Sickness No 12/15/24 15:10 HX of N/V After Surgery No 12/15/24 15:10 Non-Smoker Yes 12/15/24 15:10 Duration of Surgery greater Yes 12/15/24 15:10 than 60 minutes Number of Risk Factors 2 12/15/24 15:10 PONV Score Moderate Risk 12/15/24 15:10 Height & Weight Height & Weight: Anesthesia: Height & Weight Height 5 ft 10.5 in 11/17/24 13:46 Respiratory Assessment Respiratory Assessment - costume shop coordinator: Respiratory Tract Infection Hx - costume shop coordinator Hx Respiratory Tract Infection No 12/15/24 15:10 STOP Sleep Apnea STOP Sleep Apnea - costume shop coordinator: STOP Sleep Apnea - costume shop coordinator Hx Hypertension No 12/15/24 15:10 Hx Sleep Apnea No 12/15/24 15:10 CPAP BIPAP Do you snore loudly (louder No 12/15/24 15:10 than talking or can be heard Do you often feel tired/ Yes 12/15/24 15:10 fatigued/ sleepy during daytime? Has anyone observed you stop No 12/15/24 15:10 breathing during sleep? STOP Results Negative 12/15/24 15:10 QUESTION #5 FULL TEXT : Do you snore loudly (louder than talking or can be heard through closed doors)? 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 Specify any problems Hx of Preganancy in last 3 N/A 12/15/24 15:10 Months Nurse Filling Out Transfusion DSCHRIBER 12/15/24 15:10 & Questions: Date: 12/15/24 12/15/24 15:10 Time: 15:12 12/15/24 15:10 Patient unable to answer at this time (ie. confused, unrespo /Reproduction History /Reproductive History - costume shop coordinator: /Reproductive Hx- costume shop coordinator Hx Now No 12/15/24 15:10 Gestational Age (in weeks): EDC: Hx Hx Para Hx Section SAB No 12/15/24 15:10 Active Medications Active Medications: Current Medications Generic Name Dose Route Start Last Admin Trade Name Freq PRN Reason Stop Dose Admin Cefazolin Sodium 2 gm/ Sodium 110 mls @ 200 mls/hr 12/17/24 09:45 Chloride IV 12/17/24 10:17 INTRAOP ONE [facility] Medical History (Updated 12/15/24 @ 15:22 by Tana Nunez) Wears hearing aid Wears glasses History of steroid therapy Diabetes Bladder disease Anemia Syncope Gastric reflux History of irregular heartbeat History of stress test History of Holter monitoring History of echocardiogram MDS (myelodysplastic syndrome) Contact with and (suspected) exposure to other viral communicable diseases Esophagitis Wears dentures Anxiety Thyroid disease Injury of back Loss of consciousness History of diverticulitis History of IBS History of hiatal hernia Non-smoker Leg cramps History of edema Cardiology follow-up encounter Personal history of colonic polyps Vertigo Concussion Chronic anemia Lipoma Skin lesion Fibromyalgia Premature ventricular contractions Bradycardia Home Medications Medication Instructions Recorded Last Taken Type finasteride 5 mg tablet 5 mg PO QHS 01/09/21 Unknown History paroxetine HCl 40 mg tablet 40 mg PO QHS 01/09/21 Unknown History Acapella #1 ea 02/21/22 Unknown Rx spacer #1 ea 08/29/22 Unknown Rx tamsulosin 0.4 mg capsule 0.4 mg PO QHS 04/08/23 Unknown History levothyroxine 100 mcg tablet 100 mcg PO QDAY 07/29/23 Unknown History fluticasone propionate 50 1 spray intranasal QDAY 10/13/23 Unknown History mcg/actuation nasal spray,suspension tralokinumab-ldrm 150 mg/mL 300 mg subcut Q2W 10/13/23 Unknown History subcutaneous syringe (Adbry) albuterol sulfate 90 mcg/actuation 2 inh inhalation Q6H PRN SOB #8.5 11/17/23 Unknown Rx aerosol inhaler grams pantoprazole 40 mg tablet,delayed 40 mg PO DAILY #90 TABLETS 12/12/23 Unknown Rx release bupropion HCl 150 mg 24 hr tablet, 150 mg PO DAILY PRN DEPRESSION 05/18/24 Unknown History extended release polyethylene glycol 3350 17 4 g PO QDAY 05/18/24 Unknown History gram/dose oral powder (Miralax) Allergy/AdvReac Type Severity Reaction Status Date / Time cefaclor (From Ceclor) Allergy Unknown Verified 12/15/24 15:06 contact metal agent Allergy Rash Verified 12/15/24 15:06 nortriptyline Allergy Unknown Verified 12/15/24 15:06 Penicillins Allergy blisters Verified 12/15/24 15:06 on feet alfuzosin (From Uroxatral) AdvReac Unknown Verified 12/15/24 15:06 esomeprazole (From Nexium) AdvReac Itching Verified 12/15/24 15:06 lansoprazole (From Prevacid) AdvReac Upset Verified 12/15/24 15:06 Stomach Family History Father Diabetes Afib pacemaker Mother Heart disease Hx CHF Hypertension Surgical History (Updated 12/15/24 @ 15:22 by Tana Nunez) History of removal of cyst History of bilateral cataract extraction History of esophagogastroduodenoscopy (EGD) Hx of colonoscopy History of prostate surgery History of testicular mass excision History of tonsillectomy and adenoidectomy History of cholecystectomy Social History household members: spouse housing: house Smoking Status: Never smoker alcohol intake: never substance use type: does not use caffeine: Yes Type: carbonated beverages what type of physical activity do you participate in: none seatbelt use: always do you feel safe at home: Yes Audit: Pertinent Findings Pertinent Findings EKG Perinent findings: EKG 11/25/2023. Sinus rhythm with marked sinus arrhythmia. Left axis deviation. Incomplete right bundle branch block. Echo (EF%) pertinent findings: Echo 06/15/2024. Normal LV size. Left ventricular systolic function is normal. EF is 60%. Moderate focal aortic valve thickening. Mean aortic valve gradient 16 mmHg. Mild aortic stenosis. Stage I diastolic dysfunction. Consult pertinent findings: Cardiology note 11/17/2024. 79-year-old who presented to the office for a follow-up visit. He has a history of bradycardia and premature ventricular complexes. Evaluation had demonstrated 4.4% PVCs on the Holter in 2016. He states he is allergic to RSV vaccination and all generic medications due to fillers. He was seen in the emergency room for near syncopal event. There was a concern over sinus pauses as he did have a pause of about 1 second noted on his telemetry strip. He did undergo a 48-hour Holter monitor which did demonstrate sinus rhythm with occasional PVCs/PACs, average heart rate 85 bpm. Ventricular ectopy 1.4%, supraventricular ectopy 0.3%, atrial fibrillation 0%. He will continue with his current medical this time, and continue to monitor for any concerning symptoms. Recommendation Anesthesia Recommendation Anesthesia recommendation: OPTIMIZED for anesthesia
[2024-12-17] VITALS (16 sets, daily range): BP systolic 92–155; BP diastolic 51–83; PULSE 83–91; RESP 14–18; TEMP 36.2–36.6; O2SAT 95–100; BMI 21.9
--- OUTSIDE RECORDS SUMMARY | 2024-12-17 07:43 | XMS RPT_ITS | CCD ---
Author Organization [facility] Care Team Providers Care Drafter (Cad) Electrical Name Role Phone Isaias Crowder Unavailable Unavailable Dr. Shekhar Arana Primary Care Provider Friend, Dr. So Attending Provider [phone] FriendDr. So Referring Provider [phone] FriendDr. So Other Provider [phone] Shekhar Arana Referring Provider Antonio TRAMMELL BURN OUT SCARFING OPERATOR-C Kary Bazan Attending Provider Dr. Shekhar Arana Primary Care Provider Dr. Shekhar Arana Referring Provider Antonio TRAMMELL NP-C Kary Bazan Attending Provider [phone] JIMI Larsen Attending Provider Dr. Shekhar Arana Primary Care Provider Dr. Shekhar Arana Referring Provider Dr. German Roca Attending Provider WILLIAN Cruz Attending Provider WILLIAN Rizo Attending Provider Dr. Shekhar Arana Primary Care Provider Dr. Shekhar Arana Referring Provider Dr. German Roca Attending Provider WILLIAN Cruz Attending Provider WILLIAN Rizo Attending Provider Dr. Vishal Monte Attending Provider WILLIAN Rizo Referring Provider Dr. Osvaldo Blair Attending Provider Rainer BURN OUT SCARFING OPERATOR, BURN OUT SCARFING OPERATOR-C Dayana Attending Provider Dr. Shreyas Amezquita Primary Care Provider Dr. Shreyas Amezquita Referring Provider Dr. Shekhar Arana Primary Care Provider Dr. Shekhar Arana Referring Provider Dr. German Roca Attending Provider Dr. Shekhar Arana Primary Care Provider Yasmeen, Dr. Corrigan Referring Provider WILLIAN Rizo Attending Provider Dr. German Roca Attending Provider Dr. Osvaldo Blair Referring Provider Dr. Osvaldo Blair Other Provider Dr. Shreyas Amezquita Primary Care Provider Dr. Shreyas Amezquita Referring Provider WILLIAN Rizo Attending Provider Dr. Vishal Monte Attending Provider WILLIAN Viera Attending Provider WILLIAN Mojica Attending Provider Andrzej TRAMMELL, BURN OUT SCARFING OPERATOR-C Dianne Attending Provider Dr. Shreyas Amezquita Other Provider Dr. Shreyas Amezquita Primary Care Provider [phone] Dr. Shreyas Amezquita Referring Provider Dr. Vishal Monte Attending Provider Dr. Shreyas Amezquita Primary Care Provider [phone] Dr. Shreyas Amezquita Referring Provider Shekhar Arana Primary Care Provider Dr. Shreyas Amezquita Primary Care Provider Dr. Shreyas Amezquita Referring Provider WILLIAN Rizo Attending Provider Dr. German Roca Attending Provider Dr. Shreyas Amezquita Primary Care Provider Dr. Shreyas Amezquita Referring Provider WILLIAN Rizo Attending Provider Alisia BURN OUT SCARFING OPERATOR, BURN OUT SCARFING OPERATOR-C Jeremias Sousa Attending Provider [phone] Shekhar Arana MD Primary Care Provider Alirio CHERY, Shreyas Banda [facility] ACOSTA CRUZ Referring Unavailable SHREYAS AMEZQUITA Primary Care Unavailable Alirio CHERY, Shreyas Banda Primary Care Provider Jolie Leonardo Unavailable Unavailabl e Dr. Shreyas Amezquita DO Primary Care Provider Dr. Shreyas Amezquita DO Attending Provider Dr. Shreyas Amezquita DO Referring Provider Dr. Shreyas Amezquita DO Primary Care Provider Dr. Shreyas Amezquita DO Attending Provider Dr. Shreyas Amezquita DO Referring Provider Dr. Vishal Monte MD Attending Provider [phone] Vishal Monte MD Referring Provider [phone] Dianne Diez Attending Provider Reinaldo Rizo Attending Provider DR SHREYAS AMEZQUITA DO Primary Care Physician BARBIE SHELTON DO Consulting Rosemary MELARA MD, DR DURBIN Attending Unav ailable ALIRIO CHERY, DR PRITCHETT A Primary Care Unavailab le Unavailable Primary Care Provider UnavailRobert Nunez MD. Unavailable [phone] ROBERT SINGH. Referring Unavailable PROVIDER, UNKNOWN Admitting Unavailable PROVIDER, UNKNOWN Attending Unavailable ROBERT SINGH. Referring Unavailable PROVIDER, UNKNOWN Admitting Unavailable PROVIDER, UNKNOWN Attending Unavailable ROBERT SINGH. Admitting Unavailable ROBERT SINGH. Attending Unavailable ROBERT SINGH. Referring Unavailable PROVIDER, UNKNOWN Admitting Unavailable CHANCE GRANDE Attending Unavailable ROBERT SINGH. Referring Unavailable PROVIDER, UNKNOWN Admitting Unavailable ROBERT SINGH. Attending Unavailable ROBERT SINGH. Attending Unavailable PROVIDER, UNKNOWN Admitting Unavailable Alirio CHERY, Dr. Pritchett Primary Care Physician [phone] Joe MCKENZIE, Dr. Kev Mcpherson Attending Physician Joe MCKENZIE, Dr. Kev Mcpherson Referring Provider Dr. Shreyas Amezquita DO Referring Provider Alisia SOTOCJeremias Attending Physician ALIRIO, SHREYAS A Primary Care Unavailable MASCI, ACOSTA A Referring Unavailable ALIRIO, SHREYAS A Primary Care Unavailable MASCI, ACOSTA A Referring Unavailable ALIRIO, SHREYAS A Primary Care Unavailable MASCI, ACOSTA A Referring Unavailable ALIRIO, SHREYAS A Primary Care Unavailable MASCI, ACOSTA A Referring Unavailable ALIRIO, SHREYAS A Primary Care Unavailable MASCI, ACOSTA A Referring Unavailable ALIRIO, SHREYAS A Primary Care Unavailable MASCI, ACOSTA A Referring Unavailable ALIRIO, SHREYAS A Primary Care Unavailable MASCI, ACOSTA A Referring Unavailable ALIRIO, SHREYAS A Primary Care Unavailable MASCI, ACOSTA A Referring Unavailable ALIRIO, SHREYAS A Primary Care Unavailable MASCI, ACOSTA A Referring Unavailable ALIRIO, SHREYAS A Primary Care Unavailable MASCI, ACOSTA A Referring Unavailable ALIRIO, SHREYAS A Primary Care Unavailable MASCI, ACOSTA A Referring Unavailable ALIRIO, SHREYAS A Primary Care Unavailable MASCI, ACOSTA A Referring Unavailable ALIRIO, SHREYAS A Primary Care Unavailable MASCI, ACOSTA A Referring Unavailable ALIRIO, SHREYAS A Primary Care Unavailable TANNA SHEN Attending Unavailable MASCI, ACOSTA A Referring Unavailable ALIRIO, SHREYAS A Primary Care Unavailable MASCI, ACOSTA A Referring Unavailable ALIRIO, SHREYAS A Primary Care Unavailable MASCI, ACOSTA A Referring Unavailable ALIRIO, SHREYAS A Primary Care Unavailable MASCI, ACOSTA A Referring Unavailable ALIRIO, SHREYAS A Primary Care Unavailable MASCI, ACOSTA A Referring Unavailable ALIRIO, SHREYAS A Primary Care Unavailable MASCI, ACOSTA A Referring Unavailable ALIRIO, SHREYAS A Primary Care Unavailable MASCI, ACOSTA A Referring Unavailable ALIRIO, SHREYAS A Primary Care Unavailable MASCI, ACOSTA A Referring Unavailable ALIRIO, SHREYAS A Primary Care Unavailable MASCI, ACOSTA A Referring Unavailable ALIRIO, SHREYAS A Primary Care Unavailable MASCI, ACOSTA A Referring Unavailable ALIRIO, SHREYAS A Primary Care Unavailable MASCI, ACOSTA A Referring Unavailable ALIRIO, SHREYAS A Primary Care Unavailable MASCI, ACOSTA A Referring Unavailable ALIRIO, SHREYAS A Primary Care Unavailable MASCI, ACOSTA A Referring Unavailable ALIRIO, SHREYAS A Primary Care Unavailable MASCI, ACOSTA A Referring Unavailable ALIRIO, SHREYAS A Primary Care Unavailable MASCI, ACOSTA A Referring Unavailable ALIRIO, SHREYAS A Primary Care Unavailable MASCI, ACOSTA A Attending Unavailable ALIRIO, SHREYAS A Primary Care Unavailable MASCI, ACOSTA A Referring Unavailable ALIRIO, SHREYAS A Primary Care Unavailable MASCI, ACOSTA A Referring Unavailable ALIRIO, SHREYAS A Primary Care Unavailable MASCI, ACOSTA A Referring Unavailable ALIRIO, SHREYAS A Primary Care Unavailable MASCI, ACOSTA A Referring Unavailable ALIRIO, SHREYAS A Primary Care Unavailable MASCI, ACOSTA A Referring Unavailable ALIRIO, SHREYAS A Primary Care Unavailable TANNA SHEN Attending Unavailable MASCI, ACOSTA A Referring Unavailable ALIRIO, SHREYAS A Primary Care Unavailable MASCI, ACOSTA A Referring Unavailable ALIRIO, SHREYAS A Primary Care Unavailable MASCI, ACOSTA A Referring Unavailable ALIRIO, SHREYAS A Primary Care Unavailable MASCI, ACOSTA A Referring Unavailable ALIRIO, SHREYAS A Primary Care Unavailable MASCI, ACOSTA A Referring Unavailable ALIRIO, SHREYAS A Primary Care Unavailable MASCI, ACOSTA A Referring Unavailable ALIRIO, SHREYAS A Primary Care Unavailable MASCI, ACOSTA A Referring Unavailable ALIRIO, SHREYAS A Primary Care Unavailable MASCI, ACOSTA A Referring Unavailable ALIRIO, SHREYAS A Primary Care Unavailable MASCI, ACOSTA A Referring Unavailable ALIRIO, SHREYAS A Primary Care Unavailable MASCI, ACOSTA A Referring Unavailable ALIRIO, SHREYAS A Primary Care Unavailable MASCI, ACOSTA A Referring Unavailable ALIRIO, SHREYAS A Primary Care Unavailable MASCI, ACOSTA A Referring Unavailable ALIRIO, SHREYAS A Primary Care Unavailable TANNA SHEN Attending Unavailable ACOSTA CRUZ Referring Unavailable Alirio, Shreyas Primary Care Unavailable Alirio, Shreays Referring Unavailable Alirio, Shreyas Attending Unavailable Alirio, Shreyas Primary Care Unavailable Alirio, Shreyas Referring Unavailable Reinaldo Rizo Attending Unavailable Alirio, Shreyas Primary Care Unavailable Alirio, Shreyas Referring Unavailable Lavell, Vishal Attending Unavailable Alirio, Shreyas Primary Care Unavailable Lavell, Vishal Attending Unavailable Alirio, Shreyas Primary Care Unavailable Alirio, Shreyas Referring Unavailable Jeremias Crump NP Attending Unavailable Alirio, Shreyas Primary Care Unavailable Joe, John Referring Unavailable Joe, Kev Mcpherson Attending Unavailable Alirio, Shreyas Attending Unavailable Alirio, Shreyas Primary Care Unavailable Alirio, Shreyas Referring Unavailable Alirio, Shreyas Primary Care Unavailable Joe, Kev Mcpherson Referring Unavailable Joe, Kev Mcpherson Attending Unavailable Alirio, Shreyas Primary Care Unavailable Lavell, Braxton Attending Unavailable Lavell, Vishal Referring Unavailable Alirio, Shreyas Primary Care Unavailable Yen Viera Attending Unavail able Alirio, Shreyas Referring Unavailable Alirio, Shreyas Primary Care Unavailable Alirio, Shreyas Referring Unavailable Dianne Donnelly NP Attending Unavailable Alirio, Shreyas Primary Care Unavailable Yen Viera Referring Unavail able Yen Viera Attending Unavail able AlirioShreyas Attending Unavailable Alirio, Shreyas Primary Care Unavailable Alirio, Shreyas Primary Care Unavailable Joe, John Referring Unavailable Joe, Kev Mcpherson Attending Unavailable Joe, Jonh Admitting Unavailable Alirio, Shreyas Primary Care Unavailable Alirio, Shreyas Referring Unavailable Alirio, Shreyas Attending Unavailable Allergies Allergy Classification Reported Allergen(s) Allergy Type Date of Onset Reaction(s) Facility Adrenergic Antagonists (3 sources) alfuzosin Drug Allergy 12-22-19 10 Intolerance [facility] Cephalosporins (antibiotic) (3 sources) Cefaclor Drug Allergy 01-08-20 05 Itching [facility] Nortriptyline (3 sources) Nortriptyline Drug Allergy 01-08-20 05 [facility] Penicillins (antibiotic) (3 sources) Penicillins Drug Allergy 01-08-20 05 Itching [facility] Proton Pump Inhibitors (6 sources) Esomeprazole Drug Allergy 01-08-20 05 Itching, Diarrhea [facility] (1 source) alfuzosin Drug Allergy 05-27-[address] [facility] Work Phone: (1 source) Cefaclor Drug Allergy 05-27-[address] [facility] Work Phone: (1 source) Esomeprazole Drug Allergy 05-27-19 [address] [facility] Work Phone: (1 source) lansoprazole Drug Allergy 05-27-[address] [facility] Work Phone: (1 source) Penicillins (Antibiotic) drug allergy 05-27-[address] [facility] Work Phone: (20 sources) alfuzosin; Translations: [ALFUZOSIN] Drug Allergy 12-22-19 10 Unknown [facility] (20 sources) Cefaclor; Translations: [CEFACLOR] Drug Allergy 01-08-20 05 Itching [facility] (20 sources) Esomeprazole; Translations: [esomeprazole] Drug Allergy 01-08-20 05 Itching [facility] (20 sources) lansoprazole; Translations: [LANSOPRAZOLE] Drug Allergy 04-25-19 10 Diarrhea [facility] (20 sources) Nortriptyline; Translations: [NORTRIPTYLINE] Drug Allergy 01-08-20 05 Hives [facility] (20 sources) Penicillins; Translations: [PENICILLINS] Allergy to substance 01-08-20 05 Itching, Rash [facility] (3 sources) METAL Allergy to substance 05-29-19 22 Rash [facility] Work Phone: (20 sources) contact metal agent; Translations: [CONTACT METAL AGENT] Allergy to substance 11-09-19 Rash [facility] (20 sources) alfuzosin; Translations: [ALFUZOSIN HCL] Drug Allergy 12-22-19 10 Intolerance [facility] (20 sources) Esomeprazole; Translations: [ESOMEPRAZOLE MAGNESIUM] Drug Allergy 01-08-20 05 Itching [facility] (20 sources) Rsv Vac, Pref A And Pref B(Pf); Translations: [RSV VAC, PREF A AND PREF B(PF)] Propensity to adverse reactions to drug 07-15-19 24 Swelling [facility] (20 sources) Doxycycline; Translations: [DOXYCYCLINE] Drug Allergy 05-18-19 25 Rash [facility] (1 source) MAGNESIUM GLUCONATE; Translations: [magnesium gluconate] Drug Allergy [facility] (1 source) Penicillin; Translations: [penicillin] Drug Allergy [facility] (1 source) generic drugs Drug allergy [facility] (12 sources) Lansoprazole Propensity to adverse reactions to drug 04-25-19 10 Diarrhea [facility] (13 sources) levoFLOXacin; Translations: [LEVOFLOXACIN] Drug Allergy 11-29-19 21 Hives [facility] (13 sources) Morphine; Translations: [MORPHINE] Drug Allergy 02-27-19 19 [facility] alfuzosin Drug Allergy 12-16-19 [facility] (1 source) Cefaclor Drug Allergy 12-16-19 [facility] (1 source) Esomeprazole Drug Allergy 12-16-19 [facility] (1 source) lansoprazole Drug Allergy 12-16-19 [facility] (1 source) Nortriptyline Drug Allergy 12-16-19 [facility] Medications Current Medications Medication Drug Class(es) Dates Sig (Normalized) Sig (Original) Acapella (15 sources) Start: 02-21-2022 Acapella Active 0 .ROUTE .MEDSUPPLY 1 0 February 21, 2022 1:00am Bronchiectasis, uncomplicated Pulmonary toileting As directed Start: 02-21-2022 Acapella Activ e 0 .ROUTE .MEDSUPPLY February 21, 2022 1:00am As directed Start: 02-21-2022 Acapella Activ e 0 .ROUTE .MEDSUPPLY February 21, 2022 12:00am As directed acetaminophen 325 mg / oxyCODONE hydrochloride 5 mg oral tablet (1 source) Opioid Agonist Start: 10-26-2024 2 Tablet, Oral , PRN, 1 dose, Starting on Fri10/26/24 at 1206, Until Discontinued, Moderate Pain (pain score 4,5,6), PACU Now [id number] actuat albuterol 0.09 mg/actuat metered dose inhaler (20 sources) beta2-Adrenergic Agonist Start: 01-09-2021 Albuterol Sulfate Active 2 INH INHALATION EVERY 6 HOURS January 09, 2021 10:38am Start: 01-09-2021 End: 11-17-2023 Albuterol Sulfate 90 mcg/act uation HFA aerosol inhaler Active 2 NMA INHALATION EVERY 6 HOURS as needed for SOB 8.5 November 17, 2023 3:06pm Complies with drug therapy Start: 01-09-2021 Albuterol Sulf ate Active 2 INH INHALATION EVERY 6 HOURS January 09, 2021 12:00am Start: 11-27-2015 End: 05-27-2016 PROAIR HFA 108 (90 Base) MCG /ACT AERS as directed ALBUTEROL SULFATE [id number] Vishal Monte MD albuterol sulfat e 90 mcg/actuation breath activated powder inhaler Inhale 2 Puffs as instructed as needed. Active Comment on above: Inhale 2 Puffs as in structed as needed. 24 hr buPROPion hydrochloride 150 mg extended release oral tablet (20 sources) Aminoketone Start: 5 take 1 tablet by mouth every hour, then take 1 tablet by mouth every twenty-four hours buPROPion 150 mg/24 hours (XL) oral tablet, extended release Dose : 150 mg = 1 tab(s), Oral, q24h, # 30 tab(s), 0 Refill(s) Start Date: 07/14/24 Status: Ordered Quantity: 30.0 Unit: tab(s) Repeat number: 1 Start: 01-23-2023 End: 05-18-2024 take 1 tablet by mouth once daily Bupropion Hcl 150 mg tablet extended release 24 hr Active 150 mg PO DAILY May 18, 2024 2:04pm Complies with drug therapy Comment on above: Take 150 mg by mouth once daily. calcium citrate 500 mg oral tablet (1 source) Start: 5 take 1 tablet by mouth twice daily Citracal 500 mg oral tablet Dose : 500 mg =, Oral, BID, 0 Refill(s) Start Date: 07/14/24 Status: Ordered Repeat number: 1 diphenhydrAMINE hydrochloride 25 mg oral capsule (1 source) Histamine-1 Receptor Antagonist Start: 5 Benadryl 25 mg oral capsule Dose : 25 mg = 1 cap(s), Oral, q4h, PRN as needed for itching, # 24 cap(s), 0 Refill(s) Start Date: 07/14/24 Status: Ordered Quantity: 24.0 Unit: cap(s) Repeat number: 1 EPINEPHrine 0.01 mg/ml / lidocaine hydrochloride 10 mg/ml injectable solution (1 source) Antiarrhythmic, alpha-Adrenergic Agonist, beta-Adrenergic Agonist, Catecholamine, Amide Local Anesthetic Start: 5 End: lidocaine-EPINEPHri ne (XYLOCAINE) 1 %-1:[id number] injection SOLN finasteride 5 mg oral tablet (20 sources) 5-alpha Reductase Inhibitor Start: take 1 tablet by mouth once daily Finasteride 5 mg tablet Active 5 mg PO DAILY January 09, 2021 1:00am Complies with drug therapy Start: 05-27-2011 End: 12-11-2020 take 1 tablet by mouth once daily Finasteride 5 MG tablet Discontinued 5 mg PO DAILY November 23, 2015 12:00am December 11, 2020 1:00pm Comment on above: Take 1 tablet by matthieu once daily. fluticasone propionate 0.05 mg/actuat metered dose nasal spray (20 sources) Corticosteroid Start: 07-14-2024 fluticasone 50 mcg/inh NASAL spray 50 mcg Dose = 1 spray(s), Nostril, each, BID, PRN as needed for allergy symptoms, 0 Refill(s) Start Date: 07/14/24 Status: Ordered Repeat number: 1 Start: 10-13-2023 Fluticasone Pr opionate 50 mcg/actuation spray,suspension Active 1 NMA INTRANASAL daily October 13, 2023 12:00am Complies with drug therapy fluticasone (CLARA NASE ALLERGY RELIEF) 50 mcg/actuation nasal spray Use 1 [place] in each nostril as needed. Active Comment on above: Use 1 [place] in each nostril as needed. 1 ml HYDROmorphone hydrochloride 0.2 mg/ml prefilled syringe (2 sources) Opioid Agonist Start: 10-26-2024 End: 10-28-2024 0.2 mg, Intravenous, PACU EVERY 15 MIN PRN X 4 DOSES, 4 doses, Starting on Fri10/26/24 at 1206, Until Sanjuana 10/28/24 at 1205, Moderate Pain (pain score 4,5,6), PACU Now Start: 10-26-2024 End: 10-27-2024 0.5 mg, Intravenous, PACU EV ÁNGELA 15 MIN PRN X 4 DOSES, 4 doses, Starting on Fri10/26/24 at 1206, Until 10/27/24 at 2359, Severe Pain (pain score 7,8,9,10), PACU Now levothyroxine sodium 0.1 mg oral tablet (20 sources) l-Thyroxine Start: 07-14-2024 levothyroxine 100 mcg (0.1 mg) oral tablet Dose : 100 mcg = 1 tab(s), Oral, qDay, # 30 tab(s), 0 Refill(s) Start Date: 07/14/24 Status: Ordered Quantity: 30.0 Unit: tab(s) Repeat number: 1 Start: 07-29-2023 take 1 tablet by matthieu th once daily Levothyroxine 100 mcg tablet Active 100 ug PO daily July 29, 2023 12:00am Complies with drug therapy Start: 11-23-2015 End: 07-29-2023 take 1 tablet by mouth once daily Levothyroxine 88 MCG tablet Discontinued 88 ug PO DAILY November 23, 2015 12:00am July 29, 2023 10:12am Comment on above: Take 88 mcg by mouth daily before breakfast. magnesium oxide 250 mg oral tablet (20 sources) Start: 07-14-2024 End: 07-23-2024 Magnesium 250 mg tablet Dose : 500 mg = 2 tab(s), Oral, qDay, # 20 tab(s), 0 Refill(s) Start Date: 07/14/24 Stop Date: 07/23/24 Status: Ordered Quantity: 20.0 Unit: tab(s) Repeat number: 1 Start: 12-05-2016 take 1 tablet by matthieu th once daily MAGNESIUM OXIDE 250 MG TABS One tablet by mouth daily MAGNESIUM OXIDE [id number] Jeremias Alisia TRAMMELL End: 06-29-2024 take 2 tablets by mouth once daily Magnesium Oxide 250 mg magnesium tab Take 500 mg by mouth once daily. 06/29/2024 Discontinued Comment on above: Take 500 mg by mouth once daily. 2 ml ondansetron 2 mg/ml injection (20 sources) Serotonin-3 Receptor Antagonist Start: End: take 4 mg intravenously once as needed for nausea 4 mg, Intravenous, PACU ONCE PRN, Starting on Fri10/26/24 at 1206, Until Fri10/26/24 at 1805, Nausea, Vomiting, PACU Now Start: 10-29-2020 End: 12-11-2020 take 1 tablet by mouth every six hours as needed for nausea Ondansetron 4 MG tablet Discontinued 4 mg PO EVERY 6 HOURS NEEDED as needed for Nausea October 29, 2020 3:14pm December 11, 2020 12:59pm oxyCODONE hydrochloride 5 mg oral tablet (1 source) Opioid Agonist Start: 10-26-2024 End: 2024 take 1 tablet by mouth every six hours as needed for pain oxyCODONE 5 MG immediate release tablet Indications: Post-op pain Take 1 Tablet by mouth every 6 hours as needed for Pain for up to 5 days. 20 Tablet 10/26/2024 1:08 PM EDT 10/26/2024 2024 Active PARoxetine hydrochloride 40 mg oral tablet (20 sources) Serotonin Reuptake Inhibitor Start: 01-09-2021 take 1 tablet by mouth once daily Paroxetine Hcl 40 mg tablet Active 40 mg PO DAILY January 09, 2021 1:00am Complies with drug therapy Start: 12-11-2020 End: 01-09-2021 Paroxetine Hcl 30 mg tablet Discontinued 40 mg PO AT BEDTIME December 11, 2020 12:59pm January 09, 2021 10:38am Start: 12-11-2020 End: 01-09-2021 take 40 mg by mouth at bedtime Paroxetine Hcl Disconti nued 40 MG PO AT BEDTIME December 11, 2020 11:59am January 09, 2021 9:38am Start: 01-08-2013 End: 12-11-2020 take 1 tablet by mouth once daily Paroxetine Hcl 30 MG tablet Discontinued 30 mg PO DAILY January 01, 2016 1:00am December 11, 2020 1:01pm Start: 08-20-2010 take 1 tablet by matthieu th once daily paroxetine (PAXIL) 20 mg ORAL tablet Take 1 tablet by mouth once daily. 30 tablet 08/20/2010 Active Comment on above: Take 1 tablet by matthieu th once daily. polyethylene glycol 3350 04375 mg powder for oral solution (20 sources) Osmotic Laxative Start: 05-18-2024 Polyethylene Glycol 3350 (Miralax) 17 gram/dose powder Active 4 g PO daily May 18, 2024 12:00am Complies with drug therapy polyethylene gly col 3350 17 gram packet Take 17 g by mouth once daily as needed. Dissolve dose in 4 - 8 ounces of liquid and take as directed. Active Comment on above: Take 17 g by mouth o nce daily. Dissolve dose in 4 - 8 ounces of liquid and take as directed. [place]-Pump[place] Seed Oil (15 sources) Start: 04-25-2016 take 160 mg by mouth once daily [place] [employer] Oil Active 160 MG PO DAILY April 25, 2016 4:16pm Start: 04-25-2016 End: 04-08-2023 take 160 mg by mouth once daily [place] [employer] Oil Discontinued 160 MG PO DAILY April 25, 2016 12:00am April 08, 2023 1:39pm Start: 04-25-2016 take 160 mg by mouth once daily [place] [employer] Oil Active 160 MG PO DAILY April 25, 2016 12:00am Start: 04-25-2016 take 160 mg by mouth once daily [place] [employer] Oil Active 160 MG PO DAILY April 25, 2016 1:00am spacer (11 sources) Start: 08-29-2022 spacer Active 0 .ROUTE .MEDSUPPLY 1 0 August 29, 2022 12:00am As directed Start: 08-29-2022 spacer Active 0 .ROUTE .MEDSUPPLY August 28, 2022 11:00pm As directed Start: 08-29-2022 spacer Active 0 .ROUTE .MEDSUPPLY August 29, 2022 12:00am As directed tamsulosin hydrochloride 0.4 mg oral capsule (20 sources) alpha-Adrenergic Leeann Start: 03-21-2023 take 1 capsule by mouth at bedtime Tamsulosin 0.4 mg capsule Active 0.4 mg PO AT BEDTIME April 08, 2023 1:00am Complies with drug therapy Comment on above: Take 0.4 mg by mouth daily at bedtime. Tralokinumab-Ldrm (5 sources) Start: 10-13-2023 Tralokinumab-Ldr m (Adbry) 150 mg/mL syringe Active 300 mg SC every 2 weeks October 13, 2023 12:00am administer as 2 consecutive 150 mg injections Complies with drug therapy Start: 10-13-2023 Tralokinumab-L drm (Adbry) 150 mg/mL syringe Active 300 mg SC every 2 weeks October 13, 2023 12:00am administer as 2 consecutive 150 mg injections Start: 10-13-2023 Tralokinumab-L drm (Adbry) 150 mg/mL syringe Active 300 mg SC every 2 weeks October 12, 2023 11:00pm administer as 2 consecutive 150 mg injections Tralokinumab-ldrm 150 MG/ML SOSY (6 sources) Start: 10-13-2023 Tralokinumab-l drm 150 MG/ML SOSY 300 mg. 10/13/2023 Suspended Start: 10-13-2023 Tralokinumab-l drm 150 MG/ML SOSY 300 mg. 10/13/2023 Active triamcinolone acetonide 0.25 mg/ml topical cream (1 source) Corticosteroid Start: 07-14-2024 End: 07-28-2024 triamcinolone 0.025% topical cream Apply 1 constantin, Topical, BID, PRN Itching, # 15 gram(s), 0 Refill(s), Cream, 65.9 Start Date: 07/14/24 Stop Date: 07/28/24 Status: Ordered Quantity: 15.0 Unit: g Repeat number: 1 vit C,C-Lh-zqdcz-lutein-zeaxa n (PRESERVISION AREDS-2) 250-90-40-1 mg (4 sources) vit C,F-Lk-arwqe-lutein-zeaxa n (PRESERVISION AREDS-2) 250-90-40-1 mg Take 1 capsule by mouth two times a day with meals. Active Completed/Discontinued Medications Medication Drug Class(es) Dates Sig (Normalized) Sig (Original) acetaminophen 500 mg oral tablet (1 source) Start: 10-26-2024 End: 10-26-2024 take 1 dose by mouth once 1,000 mg, Oral, Once, 1 dose, On Fri10/26/24 at 1330, PACU Now Start: 10-26-2024 End: 10-26-2024 take 1 dose by mouth once 1,000 mg, Oral, Once, 1 dose , On Fri10/26/24 at 1330, PACU Now azelastine hydrochloride 0.137 mg/actuat metered dose nasal spray (2 sources) Histamine-1 Receptor Antagonist Start: 05-27-2011 ASTELIN 137 MCG/SPRA Y SOLN 2 puffs per nostril once daily AZELASTINE HCL [id number] Monica Hare RN Start: 02-16-2010 End: 04-25-2023 azelastine (ASTELIN) 137 mcg NASAL nasal spray Indications: Allergic rhinitis Take 2 puffs per nostril once daily. 1 Bottle 11 02/16/2010 04/25/2023 Discontinued (Course of therapy completed) Comment on above: Take 2 puffs per nos tril once daily. azithromycin 250 mg oral tablet (20 sources) Macrolide Antimicrobial Start: 07-29-2023 End: 10-13-2023 Azithromycin 250 mg tablet Discontinued 250 mg PO .COMPLEX 12 July 29, 2023 12:00am October 13, 2023 10:44am 2 tablets (500 mg) on day 1, then 1 tablet daily on days 2 through 11 Start: 11-08-2021 End: 11-08-2021 Azithromycin 250 mg tablet D iscontinued 250 mg PO daily 6 0 November 08, 2021 12:00am November 08, 2021 2:41pm 2 tablets today, then 1 tablet daily on days 2 through 5 benzonatate 200 mg oral capsule (8 sources) Non-narcotic Antitussive Start: 03-03-2023 End: 04-08-2023 take 1 capsule by mouth three times daily as needed for cough Benzonatate 200 mg capsule Discontinued 200 mg PO THREE TIMES A DAY as needed for cough 20 March 03, 2023 1:00am April 08, 2023 2:47pm Budesonide-Formote rol (20 sources) Corticosteroid, beta2-Adrenergic Agonist Start: 11-17-2023 End: 11-18-2023 Budesonide-Formote rol (Symbicort) 160-4.5 mcg/actuation HFA aerosol inhaler Discontinued 2 NMA INHALATION TWICE A DAY 3 3 November 17, 2023 3:06pm November 18, 2023 2:21pm administer with spacer, rinse mouth after each use Start: 11-17-2023 End: 11-18-2023 Budesonide-Formoterol (Symbi genevieve) 160-4.5 mcg/actuation HFA aerosol inhaler Discontinued 2 NMA INHALATION TWICE A DAY 3 November 17, 2023 3:06pm November 18, 2023 2:21pm administer with spacer, rinse mouth after each use Start: 11-17-2023 End: 11-18-2023 Budesonide-Formoterol (Symbi genevieve) 160-4.5 mcg/actuation HFA aerosol inhaler Discontinued 2 NMA INHALATION TWICE A DAY 3 November 17, 2023 2:06pm November 18, 2023 1:21pm administer with spacer, rinse mouth after each use Start: 08-29-2022 End: 11-17-2023 Budesonide-Formoterol (Symbi genevieve) 160-4.5 mcg/actuation HFA aerosol inhaler Discontinued 2 NMA INHALATION TWICE A DAY 1 August 29, 2022 12:00am November 17, 2023 3:06pm administer with spacer, rinse mouth after each use Start: 08-29-2022 End: 11-17-2023 Budesonide-Formoterol (Symbi genevieve) 160-4.5 mcg/actuation HFA aerosol inhaler Discontinued 2 NMA INHALATION TWICE A DAY 1 August 29, 2022 12:00am November 17, 2023 3:06pm administer with spacer, rinse mouth after each use Start: 08-29-2022 End: 11-17-2023 Budesonide-Formoterol (Symbi genevieve) 160-4.5 mcg/actuation HFA aerosol inhaler Discontinued 2 NMA INHALATION TWICE A DAY 1 August 28, 2022 11:00pm November 17, 2023 2:06pm administer with spacer, rinse mouth after each use Start: 08-29-2022 take 1 puff(s) by [facility] twice daily Budesonide-Formoterol (Symbicort) 160-4.5 mcg/actuation HFA aerosol inhaler Active 2 PUFF INHALATION TWICE A DAY August 28, 2022 11:00pm administer with spacer, rinse mouth after each use Start: 08-29-2022 take 1 puff(s) by [facility] twice daily Budesonide-Formoterol (Symbicort) 160-4.5 mcg/actuation HFA aerosol inhaler Active 2 PUFF INHALATION TWICE A DAY August 29, 2022 12:00am administer with spacer, rinse mouth after each use Start: 05-27-2011 End: 01-08-2013 SYMBICORT 80-4.5 MCG/ACT AER O 1 puff twice daily as needed BUDESONIDE-FORMOTEROL FUMARATE [id number] Monica Hare RN take 2 puff(s) by in halation twice daily budesonide-formoterol (SYMBICORT) 160-4.5 mcg/actuation inhaler Inhale 2 Puffs as instructed two times a day. Active take 2 puff(s) by in halation twice daily budesonide-formoterol (SYMBICORT) 160-4.5 mcg/actuation inhaler Inhale 2 Puffs as instructed two times a day. 0 Active Comment on above: Inhale 2 Puffs as in structed two times a day. calcium carbonate 1250 mg / cholecalciferol 1000 unt / vitamin k 0.4 mg chewable tablet (20 sources) Vitamin D Start: 12-26-19 End: 05-19-19 25 Calcium-Vitamin D3-Vitamin K (Citracal-D3 Soft Chew) 500 mg-1,000 unit-40 mcg Tablet,Chewable Discontinued 2 {tbl} PO DAILY December 25, 2020 12:00am May 18, 2024 2:04pm supplement Comment on above: Take 2 tablets by [facility] once daily. CALCIUM CITRATE-VITAMIN D TABS (1 source) Start: 12-06-19 17 take 1 tablet by mouth once daily CITRACAL/VITAMIN D TABS One tablet by mouth daily CALCIUM CITRATE-VITAMIN D TABS [id number] Jeremias Crump NP Cholecalciferol (20 sources) Vitamin D Start: 12-06-19 17 take 1 tablet by mouth once daily, then take 3 tablets by mouth VITAMIN D-3 CAPS One tablet by mouth daily CHOLECALCIFEROL [facility] [id number] Jeremias Crump NP Start: 04-25-2016 End: 12-11-2020 take 5 capsules by mouth once daily Cholecalciferol (Vitamin D3) 1,000 UNIT capsule Discontinued 5000 U PO DAILY April 25, 2016 1:00am December 11, 2020 1:01pm Start: 04-25-2016 End: 12-11-2020 take 5000 [IU] by mouth once daily Cholecalciferol (Vitamin D3) Discontinued 5000 UNIT PO DAILY April 25, 2016 12:00am December 11, 2020 12:01pm Cranberry Fruit Concentrate (20 sources) Non-Standardized Food Allergenic Extract, Non-Standardized Plant Allergenic Extract Start: 01-09-2022 End: 03-11-2023 take 1 tablet by mouth once daily Cranberry Fruit Concentrate (Azo Cranberry) 250 mg tablet,chewable Discontinued 250 mg PO DAILY January 09, 2022 3:53pm March 11, 2023 1:17pm Start: 01-09-2022 End: 03-11-2023 take 1 tablet by mouth once daily Cranberry Fruit Concentrate (Azo Cranberry) 250 mg tablet,chewable Discontinued 250 mg PO DAILY January 09, 2022 2:53pm March 11, 2023 12:17pm Start: 01-09-2022 End: 03-11-2023 take 1 tablet by mouth once daily Cranberry Fruit Concentrate (Azo Cranberry) 250 mg tablet,chewable Discontinued 250 MG PO DAILY January 09, 2022 2:53pm March 11, 2023 12:17pm Start: 01-09-2022 take 1 tablet by matthieu th once daily Cranberry Fruit Concentrate (Azo Cranberry) 250 mg tablet,chewable Active 250 MG PO DAILY January 09, 2022 3:53pm Start: 01-09-2022 take 1 tablet by matthieu th once daily Cranberry Fruit Concentrate (Azo Cranberry) 250 mg tablet,chewable Active 250 MG PO DAILY January 09, 2022 2:53pm Start: 01-09-2022 End: 01-09-2022 take 1 tablet by mouth three times daily Cranberry Fruit Concentrate (Azo Cranberry) 250 mg tablet,chewable Discontinued 250 mg PO THREE TIMES A DAY January 09, 2022 1:00am January 09, 2022 3:54pm Start: 01-09-2022 End: 01-09-2022 take 1 tablet by mouth three times daily Cranberry Fruit Concentrate (Azo Cranberry) 250 mg tablet,chewable Discontinued 250 mg PO THREE TIMES A DAY January 09, 2022 12:00am January 09, 2022 2:54pm Start: 01-09-2022 End: 01-09-2022 take 1 tablet by mouth three times daily Cranberry Fruit Concentrate (Azo Cranberry) 250 mg tablet,chewable Discontinued 250 MG PO THREE TIMES A DAY January 09, 2022 1:00am January 09, 2022 3:54pm Start: 01-09-2022 End: 01-09-2022 take 1 tablet by mouth three times daily Cranberry Fruit Concentrate (Azo Cranberry) 250 mg tablet,chewable Discontinued 250 MG PO THREE TIMES A DAY January 09, 2022 12:00am January 09, 2022 2:54pm 0.6 ml darbepoetin darrel 0.5 mg/ml prefilled syringe (17 sources) Erythropoiesis-stimulating Agent Start: 11-02-2024 End: 11-02-2024 inject 1 dose by subcutaneous injection once 300 mcg, SUBCUTANEOUS, ONCE, 1 dose, On Fri11/02/24 at 0930, PROTECT FROM LIGHT. REFRIGERATE Start: 10-12-2024 End: 10-12-2024 inject 1 dose by subcutaneous injection once 300 mcg, SUBCUTANEOUS, ONCE, 1 dose, On Fri10/12/24 at 0900, PROTECT FROM LIGHT. REFRIGERATE Start: 09-21-2024 End: 09-21-2024 inject 1 dose by subcutaneous injection once 300 mcg, SUBCUTANEOUS, ONCE, 1 dose, On Fri09/21/24 at 0900, PROTECT FROM LIGHT. REFRIGERATE Start: 08-11-2024 End: 08-11-2024 inject 1 dose by subcutaneous injection once 300 mcg, SUBCUTANEOUS, ONCE, 1 dose, On Fri08/11/24 at 0930, PROTECT FROM LIGHT. REFRIGERATE Start: 06-29-2024 End: 06-29-2024 inject 1 dose by subcutaneous injection once 300 mcg, SUBCUTANEOUS, ONCE, 1 dose, On Fri06/29/24 at 0930, PROTECT FROM LIGHT. REFRIGERATE Start: 06-07-2024 End: 06-07-2024 inject 1 dose by subcutaneous injection once 300 mcg, SUBCUTANEOUS, ONCE, 1 dose, On Fri06/07/24 at 0900, PROTECT FROM LIGHT. REFRIGERATE Start: 04-19-2024 End: 04-19-2024 inject 1 dose by subcutaneous injection once 300 mcg, SUBCUTANEOUS, ONCE, 1 dose, On Fri04/19/24 at 1130, PROTECT FROM LIGHT. REFRIGERATE Start: 02-09-2024 End: 02-09-2024 inject 1 dose by subcutaneous injection once 300 mcg, SUBCUTANEOUS, ONCE, 1 dose, On Fri02/09/24 at 1000, PROTECT FROM LIGHT. REFRIGERATE Start: 01-12-2024 End: 01-12-2024 inject 1 dose by subcutaneous injection once 300 mcg, SUBCUTANEOUS, ONCE, 1 dose, On Fri01/12/24 at 1000, PROTECT FROM LIGHT. REFRIGERATE Start: 12-15-2023 End: 12-15-2023 inject 1 dose by subcutaneous injection once 300 mcg, SUBCUTANEOUS, ONCE, 1 dose, On Fri12/15/23 at 1030, PROTECT FROM LIGHT. REFRIGERATE Start: 12-01-2023 End: 12-01-2023 inject 1 dose by subcutaneous injection once 300 mcg, SUBCUTANEOUS, ONCE, 1 dose, On Fri12/01/23 at 1000, PROTECT FROM LIGHT. REFRIGERATE Start: 11-17-2023 End: 11-17-2023 inject 1 dose by subcutaneous injection once 300 mcg, SUBCUTANEOUS, ONCE, 1 dose, On Fri11/17/23 at 1030, PROTECT FROM LIGHT. REFRIGERATE Start: 11-03-2023 End: 11-03-2023 inject 1 dose by subcutaneous injection once 300 mcg, SUBCUTANEOUS, ONCE, 1 dose, On Fri11/03/23 at 1030, PROTECT FROM LIGHT. REFRIGERATE Start: 10-20-2023 End: 10-20-2023 inject 1 dose by subcutaneous injection once 300 mcg, SUBCUTANEOUS, ONCE, 1 dose, On Fri10/20/23 at 0900, PROTECT FROM LIGHT. REFRIGERATE Start: 09-10-2023 End: 09-10-2023 darbepoetin darrel in polysorb at 300 mcg injection (ARANESP) Start: 08-11-2023 End: 08-11-2023 darbepoetin darrel in polysorb at 300 mcg injection (ARANESP) Start: 07-15-2023 End: 07-15-2023 darbepoetin darrel in polysorb at 300 mcg injection (ARANESP) dexamethasone 6 mg oral tablet (17 sources) Corticosteroid Start: 11-08-2021 End: 01-02-2022 take 1 tablet by mouth once daily Dexamethasone (Decadron) 6 mg tablet Discontinued 6 mg PO DAILY 5 0 November 08, 2021 12:00am January 02, 2022 11:34am (patient no longer taking PAXLOVID) diazePAM 5 mg oral tablet (20 sources) Benzodiazepine Start: 10-29-2020 End: 01-09-2021 take 1 tablet by mouth every eight hours as needed Diazepam 5 MG tablet Discontinued 5 mg PO EVERY 8 HOURS as needed for Vertigo October 29, 2020 3:14pm January 09, 2021 10:37am docusate sodium 50 mg oral capsule (20 sources) Start: 12-25-2020 End: 05-18-2024 take 2 capsules by mouth at bedtime as needed for constipation Docusate Sodium 50 mg Capsule Discontinued 100 mg PO AT BEDTIME as needed for Constipation December 25, 2020 12:00am May 18, 2024 2:04pm Start: 12-25-2020 take 100 mg by mouth at bedtim e Docusate Sodium Active 100 MG PO AT BEDTIME December 24, 2020 11:00pm Start: 03-01-2018 End: 06-29-2024 docusate sodium (COLACE) 100 mg capsule Take 100 mg by mouth as needed. 03/01/2018 06/29/2024 Discontinued Comment on above: Take 100 mg by mouth as needed. doxazosin 4 mg oral tablet (20 sources) alpha-Adrenergic Leeann Start: 05-27-2011 End: 04-25-2023 take 1 tablet by mouth at bedtime Doxazosin 4 MG tablet Discontinued 4 mg PO AT BEDTIME November 23, 2015 12:00am June 05, 2017 11:14am Comment on above: Take 1 tablet by matthieu th daily at bedtime. doxycycline hyclate 100 mg oral capsule (20 sources) Tetracycline-clas s Drug Start: 09-11-2023 End: 09-21-2023 take 1 capsule by mouth twice daily Doxycycline Hyclate 100 mg capsule Discontinued 100 mg PO TWICE A DAY 20 10 0 September 11, 2023 12:00am September 20, 2023 12:00am September 21, 2023 12:04am Acute sinusitis, unspecified Start: 12-11-2022 End: 03-11-2023 take 1 capsule by mouth twice daily Doxycycline Monohydrate 100 mg capsule Discontinued 100 mg PO TWICE A DAY 20 0 February 11, 2023 1:00am March 11, 2023 1:18pm Start: 08-12-2022 End: 08-29-2022 take 1 capsule by mouth twice daily Doxycycline Hyclate 100 mg capsule Discontinued 100 mg PO TWICE A DAY 20 0 August 12, 2022 12:00am August 29, 2022 1:11pm Start: 05-28-2022 End: 06-18-2022 take 1 tablet by mouth twice daily Doxycycline Monohydrate 100 mg tablet Discontinued 100 mg PO TWICE A DAY 20 10 0 June 08, 2022 12:20pm June 17, 2022 12:00am June 18, 2022 12:04am Start: 07-21-2021 End: 07-28-2021 take 1 capsule by mouth twice daily Doxycycline Hyclate 100 mg capsule Discontinued 100 mg PO TWICE A DAY 14 7 0 July 21, 2021 12:00am July 27, 2021 12:00am July 28, 2021 12:04am fluconazole 100 mg oral tablet (11 sources) Azole Antifungal Start: 08-29-2022 End: 03-11-2023 take 1 tablet by mouth once daily Fluconazole 100 mg tablet Discontinued 100 mg PO daily 3 0 August 29, 2022 12:00am March 11, 2023 1:17pm 30 actuat fluticasone furoate 0.2 mg/actuat / vilanterol 0.025 mg/actuat dry powder inhaler (5 sources) Corticosteroid, beta2-Adrenergic Agonist Start: 11-18-2023 End: 05-18-2024 Fluticasone Furoate-Vilanterol (Breo Ellipta) 200-25 mcg/dose blister with device Discontinued 1 NMA INHALATION daily 60 November 18, 2023 12:00am May 18, 2024 2:05pm after inhalation, rinse mouth with water and spit out; do not swallow ketorolac tromethamine 5 mg/ml ophthalmic solution (20 sources) Nonsteroidal Anti-inflammatory Drug, Cyclooxygenase Inhibitor Start: 11-10-2021 End: 04-08-2023 Ketorolac 0.5 % drops Discontinued 1 NMA OPHTHALMIC DAILY January 09, 2022 3:37pm April 08, 2023 2:44pm lactobacillus acidophilus [id number] unt oral capsule (20 sources) Start: 05-03-2021 End: 05-18-2024 take 10 capsules by mouth once daily Lactobacillus Acidophilus (Probiotic) 10 billion cell Capsule Discontinued [id number] NMA PO DAILY May 03, 2021 1:00am May 18, 2024 2:05pm Comment on above: Take 1 capsule by [facility] once daily. lansoprazole 15 mg delayed release oral capsule (2 sources) Proton Pump Inhibitor Start: 05-27-2011 End: 11-27-2015 take 1 tablet by mouth once daily PREVACID 15 MG CPDR One tablet by mouth daily LANSOPRAZOLE [id number] Vishal Monte MD levoFLOXacin 750 mg oral tablet (17 sources) Quinolone Antimicrobial Start: 11-08-2021 End: 01-09-2022 take 1 tablet by mouth once daily Levofloxacin 750 mg tablet Discontinued 750 mg PO DAILY November 08, 2021 12:00am January 09, 2022 3:39pm LORazepam 0.5 mg oral tablet (1 source) Benzodiazepine Start: 05-07-2023 End: 05-07-2023 take 1 tablet by mouth once, then take 1 tablet by mouth every hour LORazepam (ATIVAN) 0.5 mg Indications: Thrombocytopenia (HCC) Take 1 tablet by mouth one time only for 1 dose. about 1 hour prior to bone marrow biopsy. 1 tablet 0 05/07/2023 05/07/2023 Comment on above: Take 1 tablet by [facility] one time only for 1 dose. about 1 hour prior to bone marrow biopsy. Magnesium (20 sources) Start: 12-11-2020 End: 05-18-2024 take 2 tablets by mouth once daily Magnesium 250 mg tablet Discontinued 500 mg PO daily December 11, 2020 12:58pm May 18, 2024 2:05pm Start: 12-11-2020 take 2 tablets by [facility] once daily Magnesium 250 mg tablet Active 500 mg PO daily December 11, 2020 11:58am Start: 12-11-2020 take 500 mg by mouth once uzair y Magnesium Active 500 MG PO daily December 11, 2020 11:58am Start: 12-11-2020 take 500 mg by mouth once uzair y Magnesium Active 500 MG PO daily December 11, 2020 12:58pm Start: 11-29-2019 End: 12-11-2020 take 2 tablets by mouth once daily Magnesium 250 mg tablet Discontinued 500 mg PO daily November 29, 2019 9:13am December 11, 2020 1:01pm Start: 11-29-2019 End: 12-11-2020 take 2 tablets by mouth once daily Magnesium 250 mg tablet Discontinued 500 mg PO daily November 29, 2019 8:13am December 11, 2020 12:01pm Start: 11-29-2019 End: 12-11-2020 take 500 mg by mouth once daily Magnesium Discontinued 500 MG PO daily November 29, 2019 8:13am December 11, 2020 12:01pm Start: 11-29-2019 End: 12-11-2020 take 500 mg by mouth once daily Magnesium Discontinued 500 MG PO daily November 29, 2019 9:13am December 11, 2020 1:01pm Start: 06-04-2019 End: 11-29-2019 take 1 tablet by mouth once daily Magnesium 250 mg tablet Discontinued 250 mg PO daily June 04, 2019 10:00am November 29, 2019 9:14am Start: 06-04-2019 End: 11-29-2019 take 1 tablet by mouth once daily Magnesium 250 mg tablet Discontinued 250 mg PO daily June 04, 2019 9:00am November 29, 2019 8:14am Start: 06-04-2019 End: 11-29-2019 take 250 mg by mouth once daily Magnesium Discontinued 250 MG PO daily June 04, 2019 9:00am November 29, 2019 8:14am Start: 06-04-2019 End: 11-29-2019 take 250 mg by mouth once daily Magnesium Discontinued 250 MG PO daily June 04, 2019 10:00am November 29, 2019 9:14am Start: 06-05-2017 End: 06-04-2019 take 125 mg by mouth once daily Magnesium Discontinued 125 MG PO daily June 05, 2017 11:16am June 04, 2019 10:01am Start: 06-05-2017 End: 06-04-2019 Magnesium 250 mg tablet Disc ontinued 125 mg PO daily June 05, 2017 12:00am June 04, 2019 10:01am Start: 06-05-2017 End: 06-04-2019 Magnesium 250 mg tablet Disc ontinued 125 mg PO daily June 04, 2017 11:00pm June 04, 2019 9:01am Start: 06-05-2017 End: 06-04-2019 take 125 mg by mouth once daily Magnesium Discontinued 125 MG PO daily June 04, 2017 11:00pm June 04, 2019 9:01am Start: 06-05-2017 End: 06-04-2019 take 125 mg by mouth once daily Magnesium Discontinued 125 MG PO daily June 05, 2017 12:00am June 04, 2019 10:01am Start: 07-11-2015 take 1 tablet by matthieu th once daily MAGNESIUM CAPS With Carb 250mg One tablet by mouth daily MAGNESIUM CAPS [id number] Vishal Monte MD Start: 07-11-2015 End: 11-27-2015 take 1 tablet by mouth once daily MAGNESIUM CAPS With Carb 250mg One tablet by mouth daily MAGNESIUM CAPS [id number] Vishal Monte MD methylPREDNISolone 4 mg oral tablet (8 sources) Corticosteroid Start: 03-03-2023 End: 03-11-2023 take 1 tablet by mouth once Methylprednisolone (Medrol (Maged)) 4 mg tablets,dose pack Discontinued 0 PO per package directions March 03, 2023 1:00am March 11, 2023 1:16pm PO PER PKG DIR 24 hr metoprolol succinate 25 mg extended release oral tablet (3 sources) beta-Adrenergic Leeann Start: 06-28-2011 End: 01-11-2014 take 1 tablet by mouth once daily TOPROL XL 25 MG [id number] One tablet by mouth daily METOPROLOL SUCCINATE [id number] Vishal Monte MD moxifloxacin 400 mg oral tablet (16 sources) Quinolone Antimicrobial Start: 12-05-2021 End: 12-15-2021 take 1 tablet by mouth once daily Moxifloxacin 400 mg tablet Discontinued 400 mg PO DAILY December 05, 2021 12:00am December 14, 2021 12:00am December 15, 2021 12:09am MULTIPLE VITAMIN (1 source) Start: 05-27-2011 take 1 tablet by mouth once daily MULTIVITAMINS TABS One tablet by mouth daily MULTIPLE VITAMIN [id number] Monica Hare RN MULTIVITAMIN TAB (20 sources) Start: 01-07-2005 End: 06-29-2024 take 1 tablet by mouth once daily MULTIVITAMIN TAB Take 1 tablet by mouth once daily. 0 01/07/2005 06/29/2024 Discontinued Start: 01-07-2005 take 1 tablet by matthieu th once daily MULTIVITAMIN TAB Take 1 tablet by mouth once daily. 0 01/07/2005 Active Comment on above: Take 1 tablet by matthieu th once daily. 1 ml naloxone hydrochloride 0.4 mg/ml injection (1 source) Opioid Antagonist Start: 10-26-2024 0.4 mg, Intravenous, PRN, Starting on Fri10/26/24 at 1206, Until Discontinued, Respiratory Rate Less Than 8 for adults and less than 12 for Peds or for suspected overdose, PACU Now Nirmatrelvir-Ritonavir (17 sources) Start: 10-19-2021 End: 01-02-2022 Nirmatrelvir-Ritonavir (Paxlovid (Eua)) 300 mg (150 mg x 2)-100 mg tablets,dose pack Discontinued 0 PO .COMPLEX October 19, 2021 12:00am January 02, 2022 11:33am take TWO 150 mg tablets of nirmatrelvir with ONE 100 mg tablet of ritonavir twice daily for 5 days PO Start: 10-19-2021 End: 01-02-2022 Nirmatrelvir-Ritonavir (Paxl ovid (Eua)) 300 mg (150 mg x 2)-100 mg tablets,dose pack Discontinued 0 PO .COMPLEX October 19, 2021 12:00am January 02, 2022 11:33am take TWO 150 mg tablets of nirmatrelvir with ONE 100 mg tablet of ritonavir twice daily for 5 days PO Start: 10-19-2021 End: 01-02-2022 Nirmatrelvir-Ritonavir (Paxl ovid (Eua)) 300 mg (150 mg x 2)-100 mg tablets,dose pack Discontinued 0 PO .COMPLEX October 18, 2021 11:00pm January 02, 2022 10:33am take TWO 150 mg tablets of nirmatrelvir with ONE 100 mg tablet of ritonavir twice daily for 5 days PO Start: 10-19-2021 Nirmatrelvir-R itonavir (Paxlovid (Eua)) 300 mg (150 mg x 2)- 100 mg tablets,dose pack Active 0 PO .COMPLEX October 19, 2021 12:00am take TWO 150 mg tablets of nirmatrelvir with ONE 100 mg tablet of ritonavir twice daily for 5 days PO ofloxacin 3 mg/ml ophthalmic solution (17 sources) Quinolone Antimicrobial Start: 11-10-2021 End: 01-09-2022 Ofloxacin 0.3 % drops Discontinued NMA November 10, 2021 12:00am January 09, 2022 3:54pm Start: 11-10-2021 End: 01-09-2022 Ofloxacin Discontinued SANTOS nash 2021 11:00pm January 09, 2022 2:54pm omeprazole 40 mg delayed release oral capsule (20 sources) Proton Pump Inhibitor Start: 01-04-2020 End: 12-11-2020 take 1 capsule by mouth once daily Omeprazole 40 mg capsule,delayed release(DR/EC) Discontinued 40 mg PO DAILY 30 January 04, 2020 1:00am December 11, 2020 12:59pm pantoprazole 40 mg delayed release oral tablet (20 sources) Proton Pump Inhibitor Start: 03-21-2021 End: 12-12-2023 take 1 tablet by mouth once daily Pantoprazole 40 mg tablet,delayed release (DR/EC) Discontinued 40 mg PO DAILY 23 08April 07, 2023 2:13pm December 12, 2023 10:07am End: 06-29-2024 take 1 tablet by mouth twice daily pantoprazole DR (PROTONIX) 40 mg tablet Take 40 mg by mouth two times a day. 06/29/2024 Discontinued Comment on above: Take 40 mg by mouth once daily. phenazopyridine hydrochloride 95 mg oral tablet (20 sources) Start: End: take 1 tablet by mouth once daily as needed for muscle spasms Phenazopyridine (Azo) 95 mg Tablet Discontinued 95 mg PO DAILY as needed for Bladder Spasms May 03, 2021 1:00am November 08, 2021 12:44pm polysaccharide iron complex 150 mg oral capsule (17 sources) Start: End: Polysaccharide Iron Complex (Ferrex 150) 150 mg iron capsule Discontinued 150 mg PO DAILY 90 1 November 05, 2021 12:00am March 11, 2023 1:16pm prednisoLONE acetate 10 mg/ml ophthalmic suspension (17 sources) Corticosteroid Start: End: Prednisolone Acetate 1 % drops,suspension Discontinued NMA November 10, 2021 12:00am January 02, 2022 11:33am Start: 11-10-2021 End: 01-02-2022 Prednisolone Acetate Discont inued DRP November 09, 2021 11:00pm January 02, 2022 10:33am predniSONE 20 mg oral tablet (20 sources) Start: 01-19-2024 End: 01-24-2024 take 3 tablets by mouth once daily at mealtime Prednisone 20 mg tablet Discontinued 60 mg PO daily 15 5 0 January 19, 2024 1:00am January 23, 2024 1:00am January 24, 2024 1:15am administer with food or milk Start: 11-18-2023 End: 12-18-2023 take 3 tablets by mouth once daily at mealtime Prednisone 20 mg tablet Discontinued 60 mg PO daily 15 0 November 18, 2023 12:00am December 18, 2023 9:33am administer with food or milk Start: 01-22-2023 End: 03-11-2023 Prednisone 10 mg tablets,dos e pack Discontinued 0 PO per package directions January 22, 2023 1:00am March 11, 2023 1:16pm PO PER PKG DIR Start: 01-22-2023 End: 03-11-2023 Prednisone Discontinued 0 PO per package directions January 22, 2023 12:00am March 11, 2023 12:16pm PO PER PKG DIR Start: 01-22-2023 Prednisone Act isabel 0 PO per package directions January 22, 2023 12:00am PO PER PKG DIR Start: 08-12-2022 End: 08-29-2022 take 1 tablet by mouth twice daily Prednisone 20 mg tablet Discontinued 20 mg PO TWICE A DAY 10 0 August 12, 2022 12:00am August 29, 2022 1:11pm Start: 06-08-2022 End: 08-12-2022 Prednisone 10 mg tablet Discontinued 10 mg PO .COMPLEX 30 0 June 08, 2022 12:00am August 12, 2022 10:40am Take 4 pills for 3 days, 3 pills for 3 days, 2 pills for 3 days, take 1 pill for 3 days Psyllium (20 sources) Start: 01-07-2005 End: 06-29-2024 METAMUCIL 100 % ORAL POWDER Take by mouth as needed. 0 01/07/2005 06/29/2024 Discontinued Start: 01-07-2005 METAMUCIL 100 % ORAL POWDER Take by mouth as needed. 0 01/07/2005 Active Comment on above: Take by mouth as nee ded. raNITIdine 150 mg oral tablet (20 sources) Histamine-2 Receptor Antagonist Start: 6 End: 4 take 1 tablet by mouth twice daily Ranitidine Hcl 150 MG tablet Discontinued 150 mg PO TWICE A DAY January 01, 2016 1:00am June 05, 2017 11:15am Comment on above: Take 150 mg by mouth twice daily as needed. Saw [place] 500 mg ORAL Cap (1 source) Start: 2 End: 4 take 1 capsule by mouth twice daily Saw [place] 500 mg ORAL Cap Take by mouth twice daily. 0 03/15/2011 04/25/2023 Discontinued (Course of therapy completed) Comment on above: Take by mouth twice daily. 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 Start: 05-27-2011 End: 11-27-2015 SAW PALMETTO 1000 MG CAPS On e-half tablet twice daily SAW PALMETTO (SERENOA REPENS) [id number] Vishal Monte MD Start: 05-27-2011 SAW PALMETTO 1 000 MG CAPS One-half tablet twice daily SAW PALMETTO (SERENOA REPENS) [id number] Monica Hare RN Saw [place]-Pumpkin Seed Oil 160 MG capsule (5 sources) Start: 04-25-2016 End: 04-08-2023 take 1 capsule by mouth once daily Saw [place]-Pumpkin Seed Oil 160 MG capsule Discontinued 160 mg PO DAILY April 25, 2016 1:00am April 08, 2023 2:39pm bph Start: 04-25-2016 End: 04-08-2023 take 1 capsule by mouth once daily Saw [place]-Pumpkin Seed Oil 160 MG capsule Discontinued 160 mg PO DAILY April 25, 2016 1:00am April 08, 2023 2:39pm Start: 04-25-2016 End: 04-08-2023 take 1 capsule by mouth once daily Saw [place]-Pumpkin Seed Oil 160 MG capsule Discontinued 160 mg PO DAILY April 25, 2016 12:00am April 08, 2023 1:39pm 72 hr scopolamine 0.0139 mg/hr transdermal system (17 sources) Anticholinergic Start: 12-01-2023 End: 06-29-2024 scopolamine (TRANSDERM-SCOP) patch 1.5 mg/72 hr (delivers 1 mg over 3 days) Apply 1 Patch as directed every 72 hours. as needed for vertigo 12/01/2023 06/29/2024 Discontinued 20 ml sodium chloride 9 mg/ml injection (1 source) Start: 10-26-2024 3 mL, Intravenous, PRN, Starting on Fri10/26/24 at 1206, Until Discontinued, For medication administration and blood draw, PACU Now sulfamethoxazole 400 mg / trimethoprim 80 mg oral tablet (20 sources) Dihydrofolate Reductase Inhibitor Antibacterial, Sulfonamide Antimicrobial Start: 06-04-2019 End: 11-29-2019 Sulfamethoxazole-Trime thoprim 400-80 mg tablet Discontinued PO June 04, 2019 12:00am November 29, 2019 9:14am Start: 06-04-2019 End: 11-29-2019 Sulfamethoxazole-Trimethopri m Discontinued PO June 03, 2019 11:00pm November 29, 2019 8:14am Problems Active Problems Problem Classification Problem Date Documented Da te Episodic/Chronic Abdominal pain (20 sources) Abdominal pain; Translations: [Unspecified abdominal pain] 02-27-2021 Episodic Acute bronchitis (17 sources) Acute bronchitis; Translations: [Acute bronchitis, unspecified] 04-04-2023 Episodic Asthma (20 sources) Asthma; Translations: [Unspecified asthma, uncomplicated] Onset: 1 02-19-2021 Chronic Cardiac dysrhythmias (20 sources) Bradycardia; Translations: [Ventricular premature beats] Onset: 2 01-11-2014 Chronic Chronic obstructive pulmonary disease and bronchiectasis (20 sources) Bronchiectasis; Translations: [Bronchiectasis, uncomplicated] Chronic Comment on above: CT 02/20/22 Coagulation and hemorrhagic disorders (20 sources) Thrombocytopenic disorder; Translations: [Thrombocytopenia, unspecified] Onset: 4 Resolved: 4 05-07-2023 Chronic Conduction disorders (5 sources) Sinus node dysfunction; Translations: [Other specified heart block] 12-03-2023 Chronic Deficiency and other anemia (20 sources) Pancytopenia; Translations: [Other pancytopenia] Onset: 9 01-28-2022 Chronic Comment on above: Thrombocytopenia and Leukopenia has resolved. 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)] Onset: 4 Chronic Deficiency and other anemia (20 sources) Chronic anemia; Translations: [Anemia, unspecified] 11-29-2019 Episodic Deficiency and other anemia (6 sources) Anemia, unspecified; Translations: [Anemia, unspecified] Onset: 4 Episodic Deficiency and other anemia (7 sources) Anemia; Translations: [Anemia, unspecified] Onset: 9 04-25-2023 Episodic Delirium, dementia, and amnestic and other cognitive disorders (2 sources) Postconcussion syndrome; Translations: [Postconcussional syndrome] Onset: 9 12-08-2021 Chronic Diabetes mellitus without complication (1 source) Type 2 diabetes mellitus without complications; Translations: [Type 2 diabetes mellitus without complications] Onset: 5 Chronic Diseases of mouth; excluding dental (20 sources) Mass of parotid gland; Translations: [Other diseases of salivary glands] Onset: 5 09-14-2024 Episodic Diverticulosis and diverticulitis (20 sources) Diverticulosis of colon; Translations: [Diverticulosis of large intestine without perforation or abscess without bleeding] 01-28-2005 Chronic Esophageal disorders (20 sources) Gastroesophageal reflux disease; Translations: [Gastro-esophageal reflux disease without esophagitis] Onset: 7 Chronic Esophageal disorders (20 sources) Esophagitis; Translations: [Esophagitis] Resolved: 7 Episodic Heart valve disorders (4 sources) Aortic stenosis, non-rheumatic ; Translations: [Nonrheumatic aortic (valve) stenosis] 11-17-2024 Chronic Hyperplasia of prostate (20 sources) Benign prostatic hypertrophy with outflow obstruction; Translations: [Benign prostatic hyperplasia with lower urinary tract symptoms] Onset: 6 11-17-2009 Chronic Immunizations and screening for infectious disease (20 sources) Patient encounter status; Translations: [Encounter for screening for COVID-19] Onset: 7 Episodic Intracranial injury (20 sources) Concussion injury of body structure; Translations: [Concussion with loss of consciousness of unspecified duration, initial encounter] Onset: 9 12-26-2020 Episodic Nausea and vomiting (20 sources) Vomiting; Translations: [Vomiting, unspecified] 12-26-2020 Episodic Nutritional deficiencies (20 sources) Iron deficiency; Translations: [Iron deficiency] Episodic Comment on above: Intolerant of oral I carole because of constipation. Hgb is 8.5 today. Iron level/Iron sat are still low. Has functional Iron deficiency anemia.Stool for occult blood is negative.Got another dose of Injectafer, Hgb had risen by 1gm. Other and unspecified benign neoplasm (20 sources) History of polyp of colon; Translations: [Personal history of colonic polyps] 12-26-2020 Episodic Other circulatory disease (6 sources) Low blood pressure; Translations: [Hypotension, unspecified] 05-18-2024 Episodic Other diseases of bladder and urethra (20 sources) Bladder neck obstruction; Translations: [Bladder-neck obstruction] Onset: 6 Resolved: 9 08-19-2008 Chronic Other ear and sense organ disorders (9 sources) Impacted cerumen; Translations: [Impacted cerumen, bilateral] 05-28-2022 Episodic Other ear and sense organ disorders (1 source) Impacted cerumen, bilateral; Translations: [Impacted cerumen] 05-28-2022 Episodic Other ear and sense organ disorders (2 sources) Impacted cerumen of bilateral ears; Translations: [Impacted cerumen, bilateral] 05-28-2022 Episodic Other gastrointestinal disorders (20 sources) Irritable bowel syndrome; Translations: [Irritable bowel syndrome without diarrhea] Onset: 7 11-17-2009 Chronic Other liver diseases (18 sources) Increased bilirubin level; Translations: [Unspecified jaundice] 10-03-2021 Episodic Other lower respiratory disease (6 sources) Radiologic infiltrate of lung ; Translations: [Other nonspecific abnormal finding of lung field] 11-08-2021 Episodic Other lower respiratory disease (13 sources) Other nonspecific abnormal finding of lung field; Translations: [Other nonspecific abnormal finding of lung field] Episodic Other lower respiratory disease (11 sources) Single lobe lung infiltrate; Translations: [Other nonspecific abnormal finding of lung field] 11-08-2021 Episodic Other lower respiratory disease (20 sources) Cough; Translations: [Cough] Onset: 8 Resolved: 9 08-29-2022 Episodic Other male genital disorders (9 sources) Testicular mass; Translations: [Other specified disorders of the male genital organs] 08-01-2014 Episodic Other male genital disorders (20 sources) Adult hydrocele; Translations: [Hydrocele, unspecified] 08-01-2014 Episodic Other male genital disorders (11 sources) Other specified disorders of the male genital organs; Translations: [Nodule of testis] 08-01-2014 Episodic Other nervous system disorders (1 source) Postoperative pain ; Translations: [Other acute postprocedural pain] 10-26-2024 Episodic Other upper respiratory disease (20 sources) Allergic rhinitis; Translations: [Allergic rhinitis, unspecified] Onset: 9 07-21-2021 Chronic Other upper respiratory disease (2 sources) Allergic rhinitis, unspecified; Translations: [Allergic rhinitis, cause unspecified] Chronic Other upper respiratory infections (14 sources) Maxillary sinusitis; Translations: [Chronic maxillary sinusitis] 08-12-2022 Chronic Other upper respiratory infections (20 sources) Acute frontal sinusitis; Translations: [Acute frontal sinusitis, unspecified] Episodic Otitis media and related conditions (13 sources) Otitis media; Translations: [Otitis media, unspecified, bilateral] 06-08-2022 Episodic Residual codes; unclassified (1 source) Body mass index 20-24 - normal; Translations: [Body mass index (BMI) 21.0-21.9, adult] 11-08-2024 Episodic Superficial injury; contusion (5 sources) Abrasion, right lesser toe(s), initial encounter; Translations: [Infected abrasion of second toe of right foot] 09-11-2023 Episodic Thyroid disorders (20 sources) Hypothyroidism; Translations: [Hypothyroidism, unspecified] Onset: 6 12-26-2020 Chronic Unclassified (1 source) Established Patient Onset: Viral infection (20 sources) Disease caused by 2019-nCoV; Translations: [COVID-19] Episodic Past or Other Problems Problem Classification Problem Date Documented Date Episodic/Chronic Cardiac dysrhythmias (20 sources) Palpitations; Translations: [Bradycardia] Onset: 01-08-2013 Resolved: 07-11-2015 01-08-2013 Episodic Conditions associated with dizziness or vertigo (20 sources) Vertigo; Translations: [Dizziness and giddiness] Onset: 04-07-2018 12-26-2020 Episodic Diabetes mellitus without complication (20 sources) Impaired fasting glycemia; Translations: [Impaired fasting glucose] Onset: 11-17-2009 11-17-2009 Episodic Gastritis and duodenitis (20 sources) Acute gastritis; Translations: [Acute gastritis without bleeding] Resolved: 08-04-2006 08-04-2006 Episodic Joint disorders and dislocations; trauma-related (1 source) Other tear of medial meniscus, current injury, left knee, initial encounter; Translations: [Other tear of medial meniscus, current injury, left knee, initial encounter] Onset: 06-21-2015 07-03-2015 Episodic Leukemias (20 sources) Myelodysplastic syndrome (clinical); Translations: [Myelodysplastic disease, not classified] Onset: 07-07-2023 09-18-2023 Episodic Lymphadenitis (2 sources) Lymphadenopathy; Translations: [Generalized enlarged lymph nodes] Onset: 09-13-2024 06-29-2024 Episodic Neoplasms of unspecified nature or uncertain behavior (20 sources) Neoplasm of uncertain behavior of skin; Translations: [Neoplasm of uncertain behavior of skin] Onset: 04-24-2009 04-24-2009 Episodic Other and unspecified benign neoplasm (20 sources) Dysplastic nevus of trunk; Translations: [Other benign neoplasm of skin of trunk] Onset: 04-24-2009 04-24-2009 Episodic Other and unspecified benign neoplasm (20 sources) Melanocytic nevus of trunk; Translations: [Melanocytic nevi of trunk] Onset: 04-24-2009 04-24-2009 Episodic Other and unspecified benign neoplasm (20 sources) Pigmented hairy epidermal nevus; Translations: [Melanocytic nevi of trunk] Onset: 04-24-2009 04-24-2009 Episodic Other and unspecified benign neoplasm (20 sources) Adenomatous polyp of colon ; Translations: [Benign neoplasm of sigmoid colon] Onset: 05-09-2016 05-09-2016 Episodic Other connective tissue disease (20 sources) Muscle pain; Translations: [Myalgia, unspecified site] Onset: 04-29-2005 11-09-2015 Episodic Other connective tissue disease (1 source) Other specified soft tissue disorders; Translations: [Other specified soft tissue disorders] Onset: 04-29-2024 Episodic Other nervous system disorders (20 sources) Notalgia paresthetica; Translations: [Paresthesia of skin] Onset: 04-24-2009 04-24-2009 Episodic Other non-traumatic joint disorders (1 source) Pain in left knee; Translations: [Pain in left knee] Onset: 06-21-2015 07-03-2015 Episodic Other non-traumatic joint disorders (20 sources) Pain in unspecified knee; Translations: [Pain in joint, lower leg] Onset: 05-21-2010 02-19-2021 Episodic Other nutritional; endocrine; and metabolic disorders (20 sources) Obesity; Translations: [Obesity, unspecified] Onset: 04-29-2005 Resolved: 02-03-2006 02-03-2006 Chronic Other nutritional; endocrine; and metabolic disorders (2 sources) Body mass index (BMI) 28.0-28.9, adult; Translations: [Body mass index (BMI) 28.0-28.9, adult] Onset: 01-08-2013 01-08-2013 Episodic Other nutritional; endocrine; and metabolic disorders (2 sources) Body mass index (BMI) 29.0-29.9, adult; Translations: [Body mass index (BMI) 29.0-29.9, adult] Onset: 01-08-2013 Resolved: 07-11-2015 07-11-2015 Episodic Other nutritional; endocrine; and metabolic disorders (20 sources) Overweight; Translations: [Overweight] Onset: 02-03-2006 11-17-2009 Episodic Other screening for suspected conditions (not mental disorders or infectious disease) (1 source) Encounter for screening for malignant neoplasm of prostate; Translations: [Encounter for screening for malignant neoplasm of prostate] Onset: 07-27-2024 Episodic Other skin disorders (20 sources) Hyperpigmentation of skin; Translations: [Disorder of pigmentation, unspecified] Onset: 04-24-2009 04-24-2009 Episodic Other skin disorders (20 sources) Epidermoid cyst of skin; Translations: [Epidermal cyst] Onset: 04-24-2009 04-24-2009 Episodic Other skin disorders (20 sources) Seborrheic keratosis; Translations: [Other seborrheic keratosis] Onset: 04-24-2009 06-04-2009 Episodic Other skin disorders (20 sources) Solar lentigo; Translations: [Other melanin hyperpigmentation] Onset: 04-24-2009 04-24-2009 Episodic Residual codes; unclassified (1 source) FH: Hypertension; Translations: [Family history of ischemic heart disease and other diseases of the circulatory system] 01-11-2014 Episodic Results Test Name Value Interpretation Reference Range Facility Partial Thromboplast Timeon 12-16-2024 aPTT Coag (Bld) [Time] 30.9 s Normal 24.1-36.2 [facility] Comment on above: Performed By: #### L 500.4100, L501.9520, L501.9985, L502.0250 #### [facility] [address] [place], [place], [address] Prothrombin Time w/INRon INR Coag (PPP) [Relative time] 1.1 {INR} Normal [facility] Comment on above: Performed By: #### L 500.4100, L501.9520, L501.9985, L502.0250 #### [facility] [address] [place], [address] PT Coag (PPP) [Time] 14.3 s Normal 11.7-14.9 [facility] Comment on above: Performed By: #### L 500.4100, L501.9520, L501.9985, L502.0250 #### [facility] [address] [place], [address] Thyroid Stim Hormone (TSH)on 12-16-2024 TSH 5.650 uIU/mL High 0.300-4.20 0 [facility] Comment on above: Performed By: #### L 500.4100, L501.9520, L501.9985, L502.0250 #### [facility] [address] [place], [address] CBC W Auto Differential pane l (Bld)on 12-14-2024 Basophils (Bld) [#/Vol] 10*3/uL Normal <0.11 [facility] Comment on above: Order Comment: Speci men Type: BLOOD SPECIMENOrdering Facility: [facility] Address: [address] [place] [address] Performed By: #### 5 7021-8 ####[facility] MIAMISolo [id number] [place] [address] [place] Basophils/100 WBC (Bld) 0.3 % Normal [facility] Comment on above: Order Comment: Speci men Type: BLOOD SPECIMENOrdering Facility: [facility] Address: [address] [place] [address] Performed By: #### 5 7021-8 ####[facility] MIAMIA [id number] [place] [address] [place] Differential cell count method Nom (Bld) Auto Normal [facility] Comment on above: Order Comment: Speci men Type: BLOOD SPECIMENOrdering Facility: [facility] Address: [address] [place] [address] Performed By: #### 5 7021-8 ####[facility] MILLWNCLIA [id number] [place] [address] [place] Eosinophils (Bld) [#/Vol] 10*3/uL Normal <0.46 [facility] Comment on above: Order Comment: Speci men Type: BLOOD SPECIMENOrdering Facility: [facility] Address: [address] [place] [address] Performed By: #### 5 7021-8 ####[facility] CENTERLIA [id number] [place] [address] [place] Eosinophils/100 WBC (Bld) 0.6 % Normal [facility] Comment on above: Order Comment: Speci men Type: BLOOD SPECIMENOrdering Facility: [facility] Address: [address] [place] [address] Performed By: #### 5 7021-8 ####[facility] [id number] [place] [address] [place] Erythrocyte distribution width (RBC) [Ratio] 14.7 % Normal 11.5-15.0 [facility] Comment on above: Order Comment: Speci men Type: BLOOD SPECIMENOrdering Facility: [facility] Address: [address] [place] [address] Performed By: #### 5 7021-8 ####[facility] CENTERLIA [id number] [place] [address] [place] Hematocrit (Bld) [Volume fraction] 30.7 % Low 39.0-51.0 [facility] Comment on above: Order Comment: Speci men Type: BLOOD SPECIMENOrdering Facility: [facility] Address: [address] [place] [address] Performed By: #### 5 7021-8 ####[facility] [id number] [place] [address] [place] Hemoglobin (Bld) [Mass/Vol] 10.3 g/dL Low 13.0-17.0 [facility] Comment on above: Order Comment: Speci men Type: BLOOD SPECIMENOrdering Facility: [facility] Address: [address] [place] [address] Performed By: #### 5 7021-8 ####[facility] [id number] [place] [address] [place] Immature granulocytes (Bld) [#/Vol] 0.06 10*3/uL Normal <0.10 [facility] Comment on above: Order Comment: Speci men Type: BLOOD SPECIMENOrdering Facility: [facility] Address: [address] [place] [address] Performed By: #### 5 7021-8 ####[facility] [id number] [address] [place] Immature granulocytes/100 WBC (Bld) 1.8 % Normal [facility] Comment on above: Order Comment: Speci men Type: BLOOD SPECIMENOrdering Facility: [facility] Address: [address] [place] [address] Performed By: #### 5 7021-8 ####[facility] [id number] [place] [address] [place] Lymphocytes (Bld) [#/Vol] 0.80 10*3/uL Low 1.00-4.00 [facility] Comment on above: Order Comment: Speci men Type: BLOOD SPECIMENOrdering Facility: [facility] Address: [address] [place] [address] Performed By: #### 5 7021-8 ####[facility] [id number] [place] [address] [place] Lymphocytes/100 WBC (Bld) 24.6 % Normal [facility] Comment on above: Order Comment: Speci men Type: BLOOD SPECIMENOrdering Facility: [facility] Address: [address] [place] [address] Performed By: #### 5 7021-8 ####[facility] SOWMYACLIOMANUEL [id number] [place] [address] [place] MCH (RBC) [Entitic mass] 30.3 pg Normal 26.0-34.0 [facility] Comment on above: Order Comment: Speci men Type: BLOOD SPECIMENOrdering Facility: [facility] Address: [address] [place] [address] Performed By: #### 5 7021-8 ####[facility] [id number] [place] [address] [place] MCHC (RBC) [Mass/Vol] 33.6 g/dL Normal 30.5-36.0 [facility] Comment on above: Order Comment: Speci men Type: BLOOD SPECIMENOrdering Facility: [facility] Address: [address] [place] [address] Performed By: #### 5 7021-8 ####[facility] [id number] [place] [address] [place] MCV (RBC) [Entitic vol] 90.3 fL Normal 80.0-100.0 [facility] Comment on above: Order Comment: Speci men Type: BLOOD SPECIMENOrdering Facility: [facility] Address: [address] [place] [address] Performed By: #### 5 7021-8 ####[facility] [id number] [place] [address] [place] Monocytes (Bld) [#/Vol] 0.23 10*3/uL Normal <0.87 [facility] Comment on above: Order Comment: Speci men Type: BLOOD SPECIMENOrdering Facility: [facility] Address: [address] [place] [address] Performed By: #### 5 7021-8 ####[facility] MILLWNCLIA [id number] [place] [address] [place] Monocytes/100 WBC (Bld) 7.1 % Normal [facility] Comment on above: Order Comment: Speci men Type: BLOOD SPECIMENOrdering Facility: [facility] Address: [address] [place] [address] Performed By: #### 5 7021-8 ####[facility] CENTERLIA [id number] [place] [address] [place] Neutrophils (Bld) [#/Vol] 2.13 10*3/uL Normal 1.45-7.50 [facility] Comment on above: Order Comment: Speci men Type: BLOOD SPECIMENOrdering Facility: [facility] Address: [address] [place] [address] Performed By: #### 5 7021-8 ####[facility] [id number] [place] [address] [place] Neutrophils/100 WBC (Bld) 65.6 % Normal [facility] Comment on above: Order Comment: Speci men Type: BLOOD SPECIMENOrdering Facility: [facility] Address: [address] [place] [address] Performed By: #### 5 7021-8 ####[facility] [id number] [place] [address] [place] Nucleated RBC (Bld) [#/Vol] 0.02 10*3/uL High <0.01 [facility] Comment on above: Order Comment: Speci men Type: BLOOD SPECIMENOrdering Facility: [facility] Address: [address] [place] [address] Performed By: #### 5 7021-8 ####[facility] [id number] [place] [address] [place] Nucleated RBC/100 WBC (Bld) [Ratio] 0.6 /100 WBC Normal [facility] Comment on above: Order Comment: Speci men Type: BLOOD SPECIMENOrdering Facility: [facility] Address: [address] [place] [address] Performed By: #### 5 7021-8 ####[facility]ENNCLATASHAA [id number] [place] [address] [place] Platelet mean volume (Bld) [Entitic vol] 8.9 fL Low 9.0-12.7 [facility] Comment on above: Order Comment: Speci men Type: BLOOD SPECIMENOrdering Facility: [facility] Address: [address] [place] [address] Performed By: #### 5 7021-8 ####[facility] [id number] [place] [address] [place] Platelets (Bld) [#/Vol] 123 10*3/uL Low 150-400 [facility] Comment on above: Order Comment: Speci men Type: BLOOD SPECIMENOrdering Facility: [facility] Address: [address] [place] [address] Performed By: #### 5 7021-8 ####[facility] [id number] [place] [address] [place] RBC (Bld) [#/Vol] 3.40 10*6/uL Low 4.20-6.00 [facility] Comment on above: Order Comment: Speci men Type: BLOOD SPECIMENOrdering Facility: [facility] Address: [address] [place] [address] Performed By: #### 5 7021-8 ####[facility] [id number] [place] [address] [place] WBC (Bld) [#/Vol] 3.25 10*3/uL Low 3.70-11.00 [facility] Comment on above: Order Comment: Speci men Type: BLOOD SPECIMENOrdering Facility: [facility] Address: [address] [place] [address] Performed By: #### 5 7021-8 ####[facility] DIAZ MILLTOWNCLIA [id number] [place] [address] [place] Ferritin SerPl-mCncon 2024 Ferritin [Mass/Vol] 1939.0 ng/mL High 30.3-565.7 [facility] Comment on above: Order Comment: Speci men Type: BLOOD SPECIMENOrdering Facility: [facility] Address: [address] [place] [address] Performed By: #### 5 0190-8, 2276-4 ####[facility] LABCLIA [id number] [place] [address] [place] Iron and Iron binding capaci ty panelon 12-14-2024 Iron [Mass/Vol] 80 ug/dL Normal 41-186 [facility] Comment on above: Order Comment: Speci men Type: BLOOD SPECIMENOrdering Facility: [facility] Address: [address] [place] [address] Performed By: #### 5 0190-8, 2276-4 ####[facility] LABCLIA [id number] [place] [address] [place] Iron binding capacity [Mass/Vol] 221 ug/dL Low 232-386 [facility] Comment on above: Order Comment: Speci men Type: BLOOD SPECIMENOrdering Facility: [facility] Address: [address] [place] [address] Performed By: #### 5 0190-8, 6-4 ####[facility] LABCLIA [id number] [place] [address] [place] Iron/TIBC [Molar ratio] 36.2 % Normal 15.0-57.0 [facility] Comment on above: Order Comment: Speci men Type: BLOOD SPECIMENOrdering Facility: [facility] Address: [address] [place] [address] Performed By: #### 5 0190-8, 2276-4 ####[facility] LABCLIA [id number] [place] [address] [place] Basic Metabolic Profile (BMP )on 12-09-2024 BUN/CRE 24.3 RATIO High 10-20 [facility] Comment on above: Performed By: #### L 500.2500, L100.0500 #### [facility] [address] [place], [address] Calcium [Mass/Vol] 9.3 mg/dL Normal 7.6-11.0 [facility] Comment on above: Performed By: #### L 500.2500, L100.0500 #### [facility] [address] [place], [address] Chloride [Moles/Vol] 99 mmol/L Normal 98-108 [facility] Comment on above: Performed By: #### L 500.2500, L100.0500 #### [facility] [address] [place], [address] CO2 [Moles/Vol] 27.7 mmol/L Normal 21.0-32.0 [facility] Comment on above: Performed By: #### L 500.2500, L100.0500 #### [facility] [address] [place], [address] Creatinine [Mass/Vol] 0.86 mg/dL Normal 0.70-1.20 [facility] Comment on above: Performed By: #### L 500.2500, L100.0500 #### [facility] [address] [place], [address] GAP 8 Normal 5-15 [facility] Comment on above: Performed By: #### L 500.2500, L100.0500 #### [facility] [address] [place], [address] GFR/1.73 sq M.predicted among non-blacks MDRD (S/P/Bld) [Vol rate/Area] 88 mL/min/{1.73_m2} Normal >60 [facility] Comment on above: Result Comment: mL/m in/1.73m2 CKD-EPI Creatinine Equation (2020) Performed By: #### L 500.2500, L100.0500 #### [facility] [address] [place], [address] Glucose [Mass/Vol] 159 mg/dL High 70-99 [facility] Comment on above: Performed By: #### L 500.2500, L100.0500 #### [facility] [address] [place], [address] Potassium [Moles/Vol] 4.3 mmol/L Normal 3.3-5.1 [facility] Comment on above: Performed By: #### L 500.2500, L100.0500 #### [facility] [address] [place], [address] Sodium [Moles/Vol] 135 mmol/L Normal 133-145 [facility] Comment on above: Performed By: #### L 500.2500, L100.0500 #### [facility] [address] [place], [address] Urea nitrogen [Mass/Vol] 21 mg/dL High 4-19 [facility] Comment on above: Performed By: #### L 500.2500, L100.0500 #### [facility] [address] [place], [address] CBC-Complete Blood Cnt No Di ffon 12-09-2024 Erythrocyte distribution width (RBC) [Ratio] 14.6 % Normal 11.6-14.6 [facility] Comment on above: Performed By: #### L 500.2500, L100.0500 #### [facility] [address] [place], [address] Hematocrit (Bld) [Volume fraction] 34.6 % Low 40-54 [facility] Comment on above: Performed By: #### L 500.2500, L100.0500 #### [facility] [address] [place], [address] Hemoglobin (Bld) [Mass/Vol] 11.2 g/dL Low 13.0-16.5 [facility] Comment on above: Performed By: #### L 500.2500, L100.0500 #### [facility] [address] [place], [address] MCH (RBC) [Entitic mass] 30.7 pg Normal 27.0-32.0 [facility] Comment on above: Performed By: #### L 500.2500, L100.0500 #### [facility] [address] [place], [address] MCHC (RBC) [Mass/Vol] 32.4 g/dL Normal 32-36 [facility] Comment on above: Performed By: #### L 500.2500, L100.0500 #### [facility] [address] [place], [address] MCV (RBC) [Entitic vol] 94.8 fL High 80-94 [facility] Comment on above: Performed By: #### L 500.2500, L100.0500 #### [facility] [address] [place], [address] Platelet mean volume (Bld) [Entitic vol] 8.7 fL Normal 6.2-12.0 [facility] Comment on above: Performed By: #### L 500.2500, L100.0500 #### [facility] [address] [place], [address] Platelets (Bld) [#/Vol] 133 10*3/uL Low 150-450 [facility] Comment on above: Performed By: #### L 500.2500, L100.0500 #### [facility] [address] [place], [address] RBC (Bld) [#/Vol] 3.65 10*6/uL Low 4.6-6.2 [facility] Comment on above: Performed By: #### L 500.2500, L100.0500 #### [facility] [address] [place], [address] RDW SD 50.7 fl High 35.1-43.9 [facility] Comment on above: Performed By: #### L 500.2500, L100.0500 #### [facility] [address] [place], [address] WBC (Bld) [#/Vol] 2.9 10*3/uL Low 4.4-11.0 [facility] Comment on above: Performed By: #### L 500.2500, L100.0500 #### [facility] [address] [place], [address] CBC W Auto Differential pane l (Bld)on 11-23-2024 Basophils (Bld) [#/Vol] 10*3/uL Normal <0.11 [facility] Comment on above: Order Comment: Speci men Type: BLOOD SPECIMENOrdering Facility: [facility] Address: [address] [place] [address] Performed By: #### 5 7021-8 ####[facility] [id number] [place] [address] [place] Basophils/100 WBC (Bld) 0.3 % Normal [facility] Comment on above: Order Comment: Speci men Type: BLOOD SPECIMENOrdering Facility: [facility] Address: [address] [place] [address] Performed By: #### 5 7021-8 ####[facility]ENTERLIA [id number] [place] [address] [place] Differential cell count method Nom (Bld) Auto Normal [facility] Comment on above: Order Comment: Speci men Type: BLOOD SPECIMENOrdering Facility: [facility] Address: [address] [place] [address] Performed By: #### 5 7021-8 ####[facility] [id number] [place] [address] [place] Eosinophils (Bld) [#/Vol] 10*3/uL Normal <0.46 [facility] Comment on above: Order Comment: Speci men Type: BLOOD SPECIMENOrdering Facility: [facility] Address: [address] [place] [address] Performed By: #### 5 7021-8 ####[facility] [id number] [place] [address] [place] Eosinophils/100 WBC (Bld) 0.3 % Normal [facility] Comment on above: Order Comment: Speci men Type: BLOOD SPECIMENOrdering Facility: [facility] Address: [address] [place] [address] Performed By: #### 5 7021-8 ####[facility] [id number] [place] [address] [place] Erythrocyte distribution width (RBC) [Ratio] 14.5 % Normal 11.5-15.0 [facility] Comment on above: Order Comment: Speci men Type: BLOOD SPECIMENOrdering Facility: [facility] Address: [address] [place] [address] Performed By: #### 5 7021-8 ####[facility] [id number] [place] [address] [place] Hematocrit (Bld) [Volume fraction] 29.7 % Low 39.0-51.0 [facility] Comment on above: Order Comment: Speci men Type: BLOOD SPECIMENOrdering Facility: [facility] Address: [address] [place] [address] Performed By: #### 5 7021-8 ####[facility] [id number] [place] [address] [place] Hemoglobin (Bld) [Mass/Vol] 10.1 g/dL Low 13.0-17.0 [facility] Comment on above: Order Comment: Speci men Type: BLOOD SPECIMENOrdering Facility: [facility] Address: [address] [place] [address] Performed By: #### 5 7021-8 ####[facility] [id number] [place] [address] [place] Immature granulocytes (Bld) [#/Vol] 0.07 10*3/uL Normal <0.10 [facility] Comment on above: Order Comment: Speci men Type: BLOOD SPECIMENOrdering Facility: [facility] Address: [address] [place] [address] Performed By: #### 5 7021-8 ####[facility] [id number] [place] [address] [place] Immature granulocytes/100 WBC (Bld) 2.2 % Normal [facility] Comment on above: Order Comment: Speci men Type: BLOOD SPECIMENOrdering Facility: [facility] Address: [address] [place] [address] Performed By: #### 5 7021-8 ####[facility] [id number] [place] [address] [place] Lymphocytes (Bld) [#/Vol] 0.55 10*3/uL Low 1.00-4.00 [facility] Comment on above: Order Comment: Speci men Type: BLOOD SPECIMENOrdering Facility: [facility] Address: [address] [place] [address] Performed By: #### 5 7021-8 ####[facility] MICHAELNCLATASHAA [id number] [place] [address] [place] [facility] Lymphocytes/100 WBC (Bld) 17.2 % Normal [facility] Comment on above: Order Comment: Speci men Type: BLOOD SPECIMENOrdering Facility: [facility] Address: [address] [place] [address] Performed By: #### 5 7021-8 ####[facility] SOMWYATatianaMANUEL [id number] [place] [address] [place] MCH (RBC) [Entitic mass] 31.3 pg Normal 26.0-34.0 [facility] Comment on above: Order Comment: Speci men Type: BLOOD SPECIMENOrdering Facility: [facility] Address: [address] [place] [address] Performed By: #### 5 7021-8 ####[facility] SOWMYACLIONCLIA [id number] [place] [address] [place] MCHC (RBC) [Mass/Vol] 34.0 g/dL Normal 30.5-36.0 [facility] Comment on above: Order Comment: Speci men Type: BLOOD SPECIMENOrdering Facility: [facility] Address: [address] [place] [address] Performed By: #### 5 7021-8 ####[facility] SOWMYACLIONCLIA [id number] [place] [address] [place] MCV (RBC) [Entitic vol] 92.0 fL Normal 80.0-100.0 [facility] Comment on above: Order Comment: Speci men Type: BLOOD SPECIMENOrdering Facility: [facility] Address: [address] [place] [address] Performed By: #### 5 7021-8 ####[facility] [id number] [place] [address] [place] Monocytes (Bld) [#/Vol] 0.25 10*3/uL Normal <0.87 [facility] Comment on above: Order Comment: Speci men Type: BLOOD SPECIMENOrdering Facility: [facility] Address: [address] [place] [address] Performed By: #### 5 7021-8 ####[facility] [id number] [place] [address] [place] Monocytes/100 WBC (Bld) 7.8 % Normal [facility] Comment on above: Order Comment: Speci men Type: BLOOD SPECIMENOrdering Facility: [facility] Address: [address] [place] [address] Performed By: #### 5 7021-8 ####[facility] [id number] [place] [address] [place] Neutrophils (Bld) [#/Vol] 2.30 10*3/uL Normal 1.45-7.50 [facility] Comment on above: Order Comment: Speci men Type: BLOOD SPECIMENOrdering Facility: [facility] Address: [address] [place] [address] Performed By: #### 5 7021-8 ####[facility] MIAMIA [id number] [place] [address] [place] Neutrophils/100 WBC (Bld) 72.2 % Normal [facility] Comment on above: Order Comment: Speci men Type: BLOOD SPECIMENOrdering Facility: [facility] Address: [address] [place] [address] Performed By: #### 5 7021-8 ####[facility] MIAMIA [id number] [place] [address] [place] Nucleated RBC (Bld) [#/Vol] 0.03 10*3/uL High <0.01 [facility] Comment on above: Order Comment: Speci men Type: BLOOD SPECIMENOrdering Facility: [facility] Address: [address] [place] [address] Performed By: #### 5 7021-8 ####[facility] [id number] [place] [address] [place] Nucleated RBC/100 WBC (Bld) [Ratio] 0.9 /100 WBC Normal [facility] Comment on above: Order Comment: Speci men Type: BLOOD SPECIMENOrdering Facility: [facility] Address: [address] [place] [address] Performed By: #### 5 7021-8 ####[facility] [id number] [place] [address] [place] Platelet mean volume (Bld) [Entitic vol] 8.5 fL Low 9.0-12.7 [facility] Comment on above: Order Comment: Speci men Type: BLOOD SPECIMENOrdering Facility: [facility] Address: [address] [place] [address] Performed By: #### 5 7021-8 ####[facility] [id number] [place] [address] [place] Platelets (Bld) [#/Vol] 137 10*3/uL Low 150-400 [facility] Comment on above: Order Comment: Speci men Type: BLOOD SPECIMENOrdering Facility: [facility] Address: [address] [place] [address] Performed By: #### 5 7021-8 ####[facility] CENTERLIA [id number] [place] [address] [place] RBC (Bld) [#/Vol] 3.23 10*6/uL Low 4.20-6.00 [facility] Comment on above: Order Comment: Speci men Type: BLOOD SPECIMENOrdering Facility: [facility] Address: [facility] [place] [address] Performed By: #### 5 7021-8 ####[facility] [id number] [place] [address] [place] WBC (Bld) [#/Vol] 3.19 10*3/uL Low 3.70-11.00 [facility] Comment on above: Order Comment: Speci men Type: BLOOD SPECIMENOrdering Facility: [facility] Address: [address] [place] [address] Performed By: #### 5 7021-8 ####[facility] [id number] [place] [address] [place] Cardiology Visit Reporton Cardiology Visit Report [facility] [address] [place] [address] OFFICE VISIT Date of Service: 11/17/24 MR#: [id number] Acct: [id number] Name: CHANCE MUNOZ Rep #: [id number] : 1945 Provider: JIMI sinclair Age/Sex: 79/M Location: [facility] Status: Signed HPI HPI History of Present Illness Details: CHANCE MUNOZ, is a 79 M who presents to the office today for a follow-up visit. He has a history of bradycardia and premature ventricular complexes. He returns for routine follow-up visit. This evaluation had demonstrated 4.4% PVCs on the Holter in 2016. He states he is allergic to RSV vaccination and "all generic medications due to fillers". He was seen in the emergency room for a near syncopal event. There was concern over a sinus pause as he did have a pause of about 1 second noted on his telemetry strip. He did undergo a 48-hour Holter monitor which did demonstrate sinus rhythm with occasional PVCs/PACs, average heart rate 85 bpm. Ventricular ectopy 1.4%, supraventricular ectopy 0.3%, atrial fibrillation 0.0%. He will continue with his current medical this time, and continue to monitor for any concerning symptoms. He denies chest, arm, jaw, or neck discomfort. He denies palpitations. He states mild, intermittent bilateral lower extremity edema. He denies claudication. He states shortness of breath with activity when he was clearing off the sidewalk. He was seen in the emergency department and workup was negative. He was treated for dehydration. He denies shortness of breath at rest, orthopnea, or PND. He denies chronic cough. He denies significant, sudden weight gain. He states dizziness when turning his head too quickly. He denies lightheadedness, near-syncope, or syncope. He denies blood in urine, blood in stool, or epistaxis. He denies fever with chills. He denies myalgia. He states fatigue. His exercise level has remained stable. Intake Vital Signs 05/18/24 14:00 06/17/24 08:51 11/17/24 13:46 Height 5 ft 10.5 in 5 ft 10.5 in 5 ft 10.5 in Weight: 155 lb BMI 21.9 BP 96/62 Blood Pressure Location Lt brachial Position Sitting Respiration 16 Pulse 64 Pulse Source NIBP Intake Visit Reasons: 6 M FU Mri Technician Required: No Is patient in pain?: No Allergies cefaclor (From Ceclor) Allergy (Verified 11/17/24 13:52) Unknown contact metal agent Allergy (Verified 11/17/24 13:52) Rash nortriptyline Allergy (Verified 11/17/24 13:52) Unknown Penicillins Allergy (Verified 11/17/24 13:52) blisters on feet alfuzosin (From Uroxatral) Adverse Reaction (Verified 11/17/24 13:52) Unknown esomeprazole (From Nexium) Adverse Reaction (Verified 11/17/24 13:52) Itching lansoprazole (From Prevacid) Adverse Reaction (Verified 11/17/24 13:52) Upset Stomach Medications ???Medication ???Instructions ???Recorded ???Confirmed ???Type finasteride 5 mg tablet 5 mg PO DAILY 01/09/21 11/17/24 Hi story paroxetine HCl 40 mg tablet 40 mg PO DAILY 01/09/21 11/17/24 H istory Acapella #1 ea 02/21/22 10/13/23 Rx spacer #1 ea 08/29/22 10/13/23 Rx tamsulosin 0.4 mg capsule 0.4 mg PO QHS 04/08/23 11/17/24 Hi story levothyroxine 100 mcg tablet 100 mcg PO QDAY 07/29/23 11/17/24 History fluticasone propionate 50 1 spray intranasal QDAY 10/13/23 0 11/17/24 History mcg/actuation nasal spray,suspension tralokinumab-ldrm 150 mg/mL 300 mg subcut Q2W 10/13/23 5 History subcutaneous syringe (Adbry) albuterol sulfate 90 mcg/actuation 2 inh inhalation Q6H PRN SOB #8. 5 11/17/23 11/17/24 Rx aerosol inhaler grams pantoprazole 40 mg tablet,delayed 40 mg PO DAILY #90 TABLETS 11/17/24 Rx release bupropion HCl 150 mg 24 hr tablet, 150 mg PO DAILY 05/18/24 5 History extended release polyethylene glycol 3350 17 4 g PO QDAY 05/18/24 11/17/24 Hist ory gram/dose oral powder (Miralax) Ejection fraction %: 60 Have you fallen in the past year?: Yes [facility] Medical History MDS (myelodysplastic syndrome) Acute pharyngitis, unspecified Acute sinusitis, unspecified Impacted cerumen of both ears Acute bronchitis, unspecified Contact with and (suspected) exposure to other viral communicable diseases URI (upper respiratory infection) Right upper lobe pulmonary infiltrate Esophagitis Abdominal pain Hypothyroidism Wears dentures Anxiety Thyroid disease Arthritis Injury of back Loss of consciousness History of diverticulitis History of IBS History of hiatal hernia Non-smoker Seasonal allergies Leg cramps History of edema Cardiology follow-up encounter Personal history of colonic polyps Vertigo Concussion Chronic anemia Lipoma Skin lesion Fibromyalgia GERD (gastroesophageal reflux disease (more content not included)... 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 Melara from [place] for evaluation of a left-side parotid mass, present since November. Patient feels like it's grown, but only a small amount. No facial weakness or skin involvement. No history of similar problems. Minor tenderness and pain on touch, which radiates to the ear. Patient did have a scan for it. It's not debilitating, but it does bother him. He's had a needle biopsy, which was inconclusive, but notes the mass went down significantly after the procedure. 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 Patient has been doing well since the procedure, and feels better overall. Reports minor numbness in front of his left ear, but the previous ear pain is gone, and he reports no other issues. Medical History[1] Surgical History[2] Allergies Lansoprazole, Alfuzosin, Cefaclor, Esomeprazole, Doxycycline, Levofloxacin, Morphine, Nortriptyline, and Penicillins Medications Current Outpatient Medications Medication Sig Dispense Refill paroxetine (PAXIL) 40 MG tablet Take 40 mg by mouth daily. finasteride (PROSCAR) 5 MG tablet Take 5 mg by mouth daily. pantoprazole (PROTONIX) 40 MG tablet Take 40 mg by mouth. tamsulosin (FLOMAX) 0.4 MG capsule 0.4 mg. Tralokinumab-ldrm 150 MG/ML SOSY 300 mg. levothyroxine (SYNTHROID) 100 MCG tablet TAKE 1 TABLET BY MOUTH DAILY IN THE MORNING ON AN EMPTY STOMACH fluticasone (FLONASE) 50 mcg/act nasal inhaler Use 1 [place] in each nostril daily. No current facility-administered medications for this visit. Family History The patient's family history is not on file.. Social History: Social History[3] Review of Systems - as per HPI, otherwise the balance of 10 systems is negative Physical Exam Vitals: 11/08/24 1048 Pulse: 63 Temp: 97.3 ???F (36.3 ???C) SpO2: 99% General apperance: WN/WD adult in no apparent distress, sitting in a chair Ability to communicate: normal voice without hoarseness Head and Face: Atraumatic, normocephalic; skin with no masses or lesions; sinuses nontender to palpation, face symmetric with normal movement Salivary Glands: Left parotid soft. Incision site healed. Very minimal edema. Ears:External ears are intact without any lesions or masses. Eyes: EOM Intact, sclera anicteric, no conjunctival injection. Nose: External nose midline Neck: no LAD. CV: No clubbing/cyanosis/edema in hands Respiration: Breathing comfortably, no stridor or stertor Neuro: A AND Ox3, Cranial nerves 2-12 intact and symmetric. Normal affect. Specimen for Surgical Path 10/26/2024 Final Diagnosis A. "Parotid Gland, Left parotid" Papillary cystadenoma, oncocytic type, negative for malignancy Background salivary gland with no pathologic changes. Assessment/Recommendation s: Chance Munoz is a 79 year old male who presents today for: 1. Warthin's tumor - Patient has healed up great. - Follow up PRN. Electronically signed by Lonnie Lang scribing for and in the presence of Dr. Robert Singh on 11/08/2024 at 10:50 AM ------- All medical record entries made by the scribe were at my direction and personally dictated by me. I have reviewed and edited the record and confirm that the note above accurately reflects all work, treatment, procedures, and medical decision making performed by me. Robert Singh MD ------- [1] No past medical history on file. 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 Pharmacy updated Vital signs taken Patient in exam room ready for MD. Princess Mora., MTA Normal The [employer] PSA,Total- Diagnosticon 10-25 PSA, DIAGNOSTIC 0.02 ng/mL Normal 0.00-4.00 [facility] Comment on above: Result Comment: This test was performed using the [employer] tPSA method. Measured values of a patient??sample can vary depending on the testing procedure used. PSA values determined on patient samples by different testing procedures cannot be used interchangeably. If there is a change in PSA assays while monitoring therapy, sequential testing should be performed to confirm baseline values. Performed By: #### L 500.4100, L501.9520, L501.9985, L502.0250 #### [facility] [address] [place], [place], [address] CBC W Auto Differential pane l (Bld)on 11-02-2024 Basophils (Bld) [#/Vol] 0.00 10*3/uL Normal <0.11 [facility] Comment on above: Order Comment: Speci men Type: BLOOD SPECIMENOrdering Facility: [facility] Address: [address] [place] [address] Performed By: #### 5 7021-8 ####[facility] [id number] [address] LABORATORYCLIA [id number] [address] OF [facility] Basophils/100 WBC (Bld) 0.0 % Normal [facility] Comment on above: Order Comment: Speci men Type: BLOOD SPECIMENOrdering Facility: [facility] Address: [address] [place] [address] Performed By: #### 5 7021-8 ####[facility]CL[facility] [id number] [address] LABORATORYCLIA [id number] [address] Dacrocytes LM Ql (Bld) Few Normal Cl [facility] Comment on above: Order Comment: Speci men Type: BLOOD SPECIMENOrdering Facility: [facility] Address: [address] [place] [address] Performed By: #### 5 7021-8 ####[facility]ITALWNCLIA [id number] [address] LABORATORYCLIA [id number] [place] [address] [place] [facility] Differential cell count method Nom (Bld) Manual Normal [facility] Comment on above: Order Comment: Speci men Type: BLOOD SPECIMENOrdering Facility: [facility] Address: [address] [place] [address] Performed By: #### 5 7021-8 ####[facility] MIAMIA [id number] [address] LABORATORYCLIA [id number] [place] [address] [place] Eosinophils (Bld) [#/Vol] 0.00 10*3/uL Normal <0.46 [facility] Comment on above: Order Comment: Speci men Type: BLOOD SPECIMENOrdering Facility: [facility] Address: [address] [place] [address] Performed By: #### 5 7021-8 ####[facility]ITALWNCLIA [id number] [address] LABORATORYCLIA [id number] [place] [address] [place] Eosinophils/100 WBC (Bld) 0.0 % Normal [facility] Comment on above: Order Comment: Speci men Type: BLOOD SPECIMENOrdering Facility: [facility] Address: [address] [place] [address] Performed By: #### 5 7021-8 ####[facility] MILLTOWNCLIA [id number] [address] LABORATORYCLIA [id number] [place] [address] [place] Erythrocyte distribution width (RBC) [Ratio] 14.6 % Normal 11.5-15.0 [facility] Comment on above: Order Comment: Speci men Type: BLOOD SPECIMENOrdering Facility: [facility] Address: [address] [place] [address] Performed By: #### 5 7021-8 ####[facility] MILLTOWNCLIA [id number] [address] LABORATORYCLIA [id number] [place] [address] [place] [facility] Hematocrit (Bld) [Volume fraction] 30.7 % Low 39.0-51.0 [facility] Comment on above: Order Comment: Speci men Type: BLOOD SPECIMENOrdering Facility: [facility] Address: [address] [place] [address] Performed By: #### 5 7021-8 ####[facility]ITALTOWNCLIA [id number] [address] LABORATORYCLIA [id number] [place] [address] [place] Hemoglobin (Bld) [Mass/Vol] 10.2 g/dL Low 13.0-17.0 [facility] Comment on above: Order Comment: Speci men Type: BLOOD SPECIMENOrdering Facility: [facility] Address: [address] [place] [address] Performed By: #### 5 7021-8 ####[facility] MILLTOWNCLIA [id number] [address] LABORATORYCLIA [id number] [place] [address] [facility] [place] Lymphocytes (Bld) [#/Vol] 0.62 10*3/uL Low 1.00-4.00 [facility] Comment on above: Order Comment: Speci men Type: BLOOD SPECIMENOrdering Facility: [facility] Address: [address] [place] [address] Performed By: #### 5 7021-8 ####[facility]ITALWNCLIA [id number] [address] LABORATORYCLIA [id number] [place] [address] [place] Lymphocytes/100 WBC (Bld) 16.0 % Normal [facility] Comment on above: Order Comment: Speci men Type: BLOOD SPECIMENOrdering Facility: [facility] Address: [address] [place] [address] Performed By: #### 5 7021-8 ####[facility] MED[facility] CENTERLIA [id number] [address] LABORATORYCLIA [id number] [place] [address] [place] [facility] MCH (RBC) [Entitic mass] 31.5 pg Normal 26.0-34.0 [facility] Comment on above: Order Comment: Speci men Type: BLOOD SPECIMENOrdering Facility: [facility] Address: [address] [place] [address] Performed By: #### 5 7021-8 ####[facility]ITALWNCLIA [id number] [address] LABORATORYCLIA [id number] [place] [address] [place] [facility] MCHC (RBC) [Mass/Vol] 33.2 g/dL Normal 30.5-36.0 [facility] Comment on above: Order Comment: Speci men Type: BLOOD SPECIMENOrdering Facility: [facility] Address: [address] [place] [address] Performed By: #### 5 7021-8 ####[facility] SOWMYATOWNCLIA [id number] [address] LABORATORYCLIA [id number] [place] [address] [place] [facility] MCV (RBC) [Entitic vol] 94.8 fL Normal 80.0-100.0 [facility] Comment on above: Order Comment: Speci men Type: BLOOD SPECIMENOrdering Facility: [facility] Address: [address] [place] [address] Performed By: #### 5 7021-8 ####[facility]PITALWSTANLIA [id number] [address] LABORATORYCLIA [id number] [place] [address] [facility] Monocytes (Bld) [#/Vol] 0.23 10*3/uL Normal <0.87 [facility] Comment on above: Order Comment: Speci men Type: BLOOD SPECIMENOrdering Facility: [facility] Address: [address] [place] [address] Performed By: #### 5 7021-8 ####[facility] TAMIAWNCLIA [id number] [address] LABORATORYCLIA [id number] [address] [place] Monocytes/100 WBC (Bld) 6.0 % Normal [facility] Comment on above: Order Comment: Speci men Type: BLOOD SPECIMENOrdering Facility: [facility] Address: [address] [place], [place] [address] Performed By: #### 5 7021-8 ####[facility]ITALTOWNCLIA [id number] [address] [facility] LABORATORYCLIA [id number] [place] [address] [place] MYELO% 1.0 % Normal [facility] Comment on above: Order Comment: Speci men Type: BLOOD SPECIMENOrdering Facility: [facility] Address: [address] [place] [address] Performed By: #### 5 7021-8 ####[facility] MILLTOWNCLIA [id number] [address] LABORATORYCLIA [id number] [place] [address] [place] Neutrophils (Bld) [#/Vol] 2.99 10*3/uL Normal 1.45-7.50 [facility] Comment on above: Order Comment: Speci men Type: BLOOD SPECIMENOrdering Facility: [facility] Address: [address] [place] [address] Performed By: #### 5 7021-8 ####[facility] MILLTOWNCLIA [id number] [address] LABORATORYCLIA [id number] [place] [address] [place] Neutrophils/100 WBC (Bld) 77.0 % Normal [facility] Comment on above: Order Comment: Speci men Type: BLOOD SPECIMENOrdering Facility: [facility] Address: [address] [place] [address] Performed By: #### 5 7021-8 ####[facility] MILLTOWNCLIA [id number] [address] LABORATORYCLIA [id number] [place] [address] [place] Nucleated RBC (Bld) [#/Vol] 0.12 10*3/uL High <0.01 [facility] Comment on above: Order Comment: Speci men Type: BLOOD SPECIMENOrdering Facility: [facility] Address: [address] [place] [address] Performed By: #### 5 7021-8 ####[facility] SOWMYAWSTANLIA [id number] [address] LABORATORYCLIA [id number] [place] [address] [place] Nucleated RBC/100 WBC (Bld) [Ratio] 3.0 /100 WBC Normal [facility] Comment on above: Order Comment: Speci men Type: BLOOD SPECIMENOrdering Facility: [facility] Address: [address] [place] [address] Performed By: #### 5 7021-8 ####[facility] [id number] [address] LABORATORYCLIA [id number] [place] [address] [place] Ovalocytes LM Ql (Bld) Few Normal [facility] Comment on above: Order Comment: Speci men Type: BLOOD SPECIMENOrdering Facility: [facility] Address: [address] [place] [address] Performed By: #### 5 7021-8 ####[facility]DRENNCA [id number] [address] LABORATORYCLIA [id number] [place] [address] [place] Platelet mean volume (Bld) [Entitic vol] 8.5 fL Low 9.0-12.7 [facility] Comment on above: Order Comment: Speci men Type: BLOOD SPECIMENOrdering Facility: [facility] Address: [address] [place] [address] Performed By: #### 5 7021-8 ####[facility] [id number] [address] LABORATORYCLIA [id number] [place] [address] [place] Platelets (Bld) [#/Vol] 134 10*3/uL Low 150-400 [facility] Comment on above: Order Comment: Speci men Type: BLOOD SPECIMENOrdering Facility: [facility] Address: [address] [place] [address] Performed By: #### 5 7021-8 ####[facility] MILLTOWNCLIA [id number] [address] LABORATORYCLIA [id number] [place] [address] [place] Platelets Estimate (Bld) [#/Vol] Adequate Normal [facility] Comment on above: Order Comment: Speci men Type: BLOOD SPECIMENOrdering Facility: [facility] Address: [address] [place] [address] Performed By: #### 5 7021-8 ####[facility]ITALWNCLIA [id number] [address] LABORATORYCLIA [id number] [place] [address] [place] RBC (Bld) [#/Vol] 3.24 10*6/uL Low 4.20-6.00 [facility] Comment on above: Order Comment: Speci men Type: BLOOD SPECIMENOrdering Facility: [facility] Address: [address] [place] [address] Performed By: #### 5 7021-8 ####[facility]CLIA [id number] [address] LABORATORYCLIA [id number] [place] [address] [place] RED CELL MORPH Reviewed: see result s of individual morphologies Normal [facility] Comment on above: Order Comment: Speci men Type: BLOOD SPECIMENOrdering Facility: [facility] Address: [address] [place] [address] Performed By: #### 5 7021-8 ####[facility] MICHAELNCLATASHAA [id number] [address] LABORATORYIA [id number] [place] [address] [place] WBC (Bld) [#/Vol] 3.88 10*3/uL Normal 3.70-11.00 [facility] Comment on above: Order Comment: Speci men Type: BLOOD SPECIMENOrdering Facility: [facility] Address: [address] [place] [address] Performed By: #### 5 7021-8 ####[facility] SOWMYACLIONCLIA [id number] [address] LABORATORYCLIA [id number] [place] [address] [place] WBC Left Shift Ql (Bld) Present Normal [facility] Comment on above: Order Comment: Speci men Type: BLOOD SPECIMENOrdering Facility: [facility] Address: [address] [place] [address] Performed By: #### 5 7021-8 ####[facility] MIAMIA [id number] [address] LABORATORYIA [id number] [address] STATES OF [facility] Anesthesia Postprocedure Sarah alexander 10-26-2024 Indirect Sales Exec Authentication Interface Message Text Anesthesia Postoperative Assessment: Vital Signs (most recent): BP 121/64 (BP Location: right arm) Pulse 90 Temp 36.3 ???C (97.4 ???F) (Temporal) Resp 16 Ht 5' 10.5" (1.791 m) Wt 148 lb (67.1 kg) SpO2 95% BMI 20.94 kg/m??? Anesthesia Post Evaluation Level of consciousness: awake Pain management: adequate Hydration status: normal PONV:No nausea/vomiting reported Respiratory status: Patient breathing comfortably on room air Cardiovascular status: stable ANESTHESIA NOTABLE EVENTS: No notable events documented. Normal [facility] [employer] Anesthesia Preprocedure Eval shiv 10-26-2024 Indirect Sales Exec Authentication Interface Message Text ASA: 3 NPO status: Greater than 8 hours Past Medical History and Review of Systems Pulmonary Comment: S/p right chest wall tumor excision (benign) S/p T AND A Dental ROS (+) teeth problems missing Endo (+) hypothyroidism Neuro/Psych Cardiovascular (+) arrhythmia, Surgical risk: intermediate; Cardiac condition: stable, hyperlipidemia ECG reviewed Comment: H/O PVC 's, asymptomatic, no h/o CP or orthopnea ECHO : Normal LV function, EF 60% Mild Diastolic dysfunction GI/Hepatic/Renal (+) GERD Comment: S/p cholecystectomy 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) BPH--s/p TURP Heme/Other (+) anemia Comment: myelodysplastic syndrome treated with erythropoietin Physical Exam Airway Mallampati: II TM distance: Adequate Micrognathia: Not present Jaw opening: Adequate Neck flexion: Adequate Dental PE (+) missing teeth Pulmonary Cardiovascular Neuro Plan Anesthesia plan: general; (ETT) Past medical history, surgical history, allergies, and medications reviewed and Pertinent laboratory tests, EKG, imaging, and consults reviewed Attestation: MHPATFORM Normal The [email or web address] Anesthesia Transfer Of Careo n 10-26-2024 Indirect Sales Exec Authentication Interface Message Text Patient taken to PACU. Patient was awake and comfortable on arrival. Anesthesia Transfer of Care Note Past Medical History: Medical History[1] Sleep Apnea/Positive STOP-BANG: No Problem List: Problem List[2] Past Surgical History: There is no previous surgical history on file. Allergies: Lansoprazole, Alfuzosin, Cefaclor, Esomeprazole, Doxycycline, Levofloxacin, Morphine, Nortriptyline, and Penicillins Basic Operating Room Facts: Surgeon(s): Robert Singh MD Anesthesiologist: Rowan Gaviria MD MEDICAL RECORDS COORDINATOR: Timur Salas APRN-ILIR Anesthesia Student: Amor Cowart PAROTIDECTOMY (Left) Intraoperative Events: No acute event ASA: 3 EBL: 5 mL Urine Not documented Lactated Ringers and NaCl 0.9%: Fluid Totals (Filter: LR and NaCl 0.9% Medications Shown) Medication Calculated Total Lactated Ringers 1,100 mL / 2 bags Cell Saver: Not documented Blood Volume Values: Blood Products None MTP Blood: MTP PRBC: Not documented MTP FFP: Not documented MTP PLT: Not documented MTP Cryo: Not documented MTP Whole Blood: Not documented Current Vasoactive Medications: {Vasoactive Medications: None Lines, Drains, Airways Peripheral IV Access: 10/26/24 1000 20 gauge Left Arm (Active) Site Assessment WNL;Dressing intact 10/26/24 1000 Infusion Status Port #1 Infusing;Positive blood return;Patent 10/26/24 1000 Airway Insertion Details [REMOVED] Advanced Airway: (Removed) 10/26/24 1043 Pre-Oxygenation/ Induction: Rapid Sequence Induction?: Mask Ventilation: Blade Type: Blade Size: Visualization: Airway Type: Airway Size: Post Insertion Assessment: Confirmation: # Attempts >1: Special Equipment: Present on Admission?: Previously Removed / Not Present: Removal Reason: Not Removed at Discharge: Removed 10/26/24 1158 [REMOVED] Advanced Airway: ETT, Oral;Cuffed #8 (Removed) 10/26/24 1043 Pre-Oxygenation/ Induction: Mask Rapid Sequence Induction?: Mask Ventilation: Easy Blade Type: Mac Blade Size: 4 Visualization: Grade 1 Airway Type: ETT, Oral;Cuffed Airway Size: #8 Post Insertion Assessment: Confirmation: Equal bilateral breath sounds, CO2 confirmed # Attempts >1: Special Equipment: Present on Admission?: Previously Removed / Not Present: Removal Reason: Not Removed at Discharge: Removed 10/26/24 1158 All non-working IVs have been removed: N/A Laboratory Data: CBC (last 3 years, up to 8 values) No lab values to display. BMP (last 3 years, up to 8 values) No lab values to display. Basic Metabolic Panel No lab values to display. No results found for: INR No result for BNP LFT's (last 3 years, up to 8 values) No lab values to display. Arterial Blood Gases None Hand off Completed: Yes 1. The patient was identified. 2. Pertinent medical history was relayed. 3. A brief discussion was had about any pertinent surgical/ procedural issues. 4. Intraoperative/ anesthetic management issue and concerns were discussed. 5. Plans for the early post-operative period relayed. 6. An opportunity for questions and acknowledgment of understanding of the report was received. CHARLA Vásquez [1] No past medical history on file. [2] Patient Active Problem List Diagnosis Code Parotid mass K11.8 Normal [facility] [employer] Brief Operative Noteon 10-26 Indirect Sales Exec Authentication Interface Message Text Brief Operative Note MAIN OR 07 Chance Munoz 78 year old male Surgical Contact Serial Number: [id number] Preoperative Diagnosis: Pre-op Diagnosis * 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] Postoperative Diagnosis: * 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] Procedures: Surgical CPTs Procedures EXCISION, PAROTID TUMOR/PAROTID GLAND; LATERAL LOBE, W/O NERVE DISSECTION No data filed Surgeon(s): Surgeon(s): Robert Singh MD Staff: Scrub: Kayla Brito, JING; Bernadette Skelton, [employer] Marketing Senior Recruiter Nurse: Kayla Brito RN; Adela Dumont portfolio administratorEvent Producer: Jennifer Arce MD Anesthesia: General Anesthesiologist: Rowan Gaviria MD MEDICAL RECORDS COORDINATOR: Timur Salas APRN-CRNA Anesthesia Student: Amor Cowart Specimen(s): ID Type Source Tests Collected by Time Destination 1 : Left parotid Tissue Parotid Gland SPECIMEN FOR SURGICAL PATH Robert Singh MD 10/26/2024 1129 Estimated Blood Loss: 5-10 cc Lines/Drains: Peripheral IV Access: 10/26/24 1000 20 gauge Left Arm (Active) Site Assessment WNL;Dressing intact 10/26/24 1000 Infusion Status Port #1 Infusing;Positive blood return;Patent 10/26/24 1000 Temporarily Retained Foreign Object: No Findings: 1.5-2cm left parotid mass Complications: None Status at end of surgery: Stable Activity: Ad Kaylah Surgical wound class: Yes, wound was clean. Patient Class: Planned Extended Recovery. Is this a patient scheduled as an outpatient that needs to be admitted as an inpatient? No Signed by Robert Singh MD 10/26/2024 12:04 PM Normal [facility] [employer] OP Noteon 10-26-2024 Indirect Sales Exec Authentication Interface Message Text Operative Report DATE OF SERVICE: 10/26/2024 PATIENT:NAME@ PREOPERATIVE DIAGNOSIS: 1. left parotid mass POSTOPERATIVE DIAGNOSIS: 1. left parotid mass PROCEDURE: 1. left excision of parotid tumor without nerve dissection SURGEON: Robert Snigh MD MITIGATION SUPERVISOR: Jennifer Arce MD ANESTHESIA: General endotracheal. ESTIMATED BLOOD LOSS: 10 mL COMPLICATIONS: None CONDITION: Stable to PACU. INTRAOPERATIVE FINDINGS: 1. left superficial parotid mass, 1-1.5 cm thin walled, well encapsulated cystic mass 2. Extracapsular parotidectomy performed, no facial nerve branches encountered. Facial nerve functional following extubation SPECIMEN: ID Type Source Tests Collected by Time Destination 1 : Left parotid Tissue Parotid Gland SPECIMEN FOR SURGICAL PATH Robert Singh MD 10/26/2024 1129 INDICATIONS AND CONSENT: Chance Munoz is a 78 year old who presented to the Otolaryngology clinic with a history of a left parotid mass. This was biopsied with FNA and had insufficient cellularity. They were therefore offered the aforementioned procedures. The procedure, risks, benefits, alternatives, potential complications, possible outcomes as well as the option of no treatment were reviewed with the patient who indicated they understood and wished to proceed forward with the procedure. Informed consent was obtained. DESCRIPTION OF PROCEDURE: On 10/26/2024, the patient was identified in the preoperative area, consent confirmed, and transported to the operating suite. They were then transferred to the operating room table and placed in a supine position. After induction of general endotracheal anesthesia, the bed was rotated 90 degrees and a proper surgeon initiated time out was performed. EMG electrodes were placed in the left orbicularis jae and orbicularis oculi muscle and grounding electrodes were placed in the right deltoid muscle. The electrodes were then connected to the nerve monitoring system and found to be functioning appropriately. A modified magdi incision was marked and then infiltrated with 1% lidocaine with 1:100,000 epinephrine. After allowing for adequate vasoconstrictive and anesthetic effects, the patient was then prepped and draped in the usual sterile fashion. We then began our parotidectomy. A 15 blade scalpel was used to incise our preplanned incision through the skin, dermis, and subcutaneous tissue starting in the preauricular region. Dissection was carried through the level of the superficial musculoaponeurotic system, dissection was not carried far inferiorly to the platysma as this was not necessary to locate the mass. The ear lobule was then retracted in a posterior superior direction and the facial skin flap retracted in an anterior direction. The skin flap was elevated with a 10 blade until the entirety of the mass was visualized. Once the flaps were created, they were then retracted with salvador skin hooks. The surrounding fascia and gland was then carefully dissected from the mass using blunt dissection and harmonic, carefully looking out for branches of facial nerve. The mass was freed circumferentially from the gland. No facial nerve branches were identified in close proximity to the mass. The mass was sent for permanent pathologic analysis. A Valsalva maneuver was performed and hemostasis was obtained in the surgical bed. The surgical bed was then copiously irrigated and hemostasis was confirmed. Fibrillar was placed in the wound bed. The incision was then closed in a multilayer fashion using interrupted 4-0 polysorb sutures with 5-0 Fast for final skin closure. This concluded our procedure. The patient tolerated the procedure well without any apparent immediate post operative complications. All counts were correct x2. The patient was rotated back to their original position, gently awakened from general anesthesia and taken to the PACU in stable condition. Dr. Singh was present for all critical portions of the procedure Jennifer Arce MD ----- Attending Physician Attestation: Teaching Physician Note: I was present for the entirety of the procedure and performed the ferris portions of the case as defined by me. I agree with the resident's medical decision making as documented in the resident's note. Robert Singh MD ----- Normal The [email or web address] [facility] Telephone Encounteron 2024 Indirect Sales Exec Authentication Interface Message Text Cardiac Risk Assessment scanned into Rn Neurosurgical. Normal The [facility] Telephone Encounteron 2024 Indirect Sales Exec Authentication Interface Message Text Medical Records scanned into Rn Neurosurgical. Normal [facility] CBC W Auto Differential pane l (Bld)on 10-12-2024 Anisocytosis Ql (Bld) Present Normal [facility] Comment on above: Order Comment: Speci men Type: BLOOD SPECIMENOrdering Facility: [facility] Address: [address] [place] [address] Performed By: #### 5 7021-8 ####[facility] [id number] [address] LABORATORYCLIA [id number] [place] [address] [place] Basophils (Bld) [#/Vol] 0.03 10*3/uL Normal <0.11 [facility] Comment on above: Order Comment: Speci men Type: BLOOD SPECIMENOrdering Facility: [facility] Address: [address] [place] [address] Performed By: #### 5 7021-8 ####[facility] [id number] [address] LABORATORYCLIA [id number] [place] [address] [place] Basophils/100 WBC (Bld) 1.0 % Normal [facility] Comment on above: Order Comment: Speci men Type: BLOOD SPECIMENOrdering Facility: [facility] Address: [address] [place] [address] Performed By: #### 5 7021-8 ####[facility] MIAMIA [id number] [address] LABORATORYCLIA [id number] [place] [address] [place] Dacrocytes LM Ql (Bld) Few Normal Cl [facility] Comment on above: Order Comment: Speci men Type: BLOOD SPECIMENOrdering Facility: [facility] Address: [address] [place] [address] Performed By: #### 5 7021-8 ####[facility] MILLTOWNCLIA [id number] [address] LABORATORYCLIA [id number] [place] [address] [place] Differential cell count method Nom (Bld) Manual Normal [facility] Comment on above: Order Comment: Speci men Type: BLOOD SPECIMENOrdering Facility: [facility] Address: [address] [place] [address] Performed By: #### 5 7021-8 ####[facility]ITALWNCLIA [id number] [address] LABORATORYCLIA [id number] [place] [address] [place] Eosinophils (Bld) [#/Vol] 0.06 10*3/uL Normal <0.46 [facility] Comment on above: Order Comment: Speci men Type: BLOOD SPECIMENOrdering Facility: [facility] Address: [address] [place] [address] Performed By: #### 5 7021-8 ####[facility]OSPITALWRILIA [id number] [address] LABORATORYCLIA [id number] [place] [address] [place] Eosinophils/100 WBC (Bld) 2.0 % Normal [facility] Comment on above: Order Comment: Speci men Type: BLOOD SPECIMENOrdering Facility: [facility] Address: [address] [place] [address] Performed By: #### 5 7021-8 ####[facility] SOWMYABLASWNCLIA [id number] [address] LABORATORYCLIA [id number] [place] [address] [place] Erythrocyte distribution width (RBC) [Ratio] 15.9 % High 11.5-15.0 [facility] Comment on above: Order Comment: Speci men Type: BLOOD SPECIMENOrdering Facility: [facility] Address: [facility] [place] [address] Performed By: #### 5 7021-8 ####[facility]ILDRENSTANLIA [id number] [address] LABORATORYIA [id number] [place] [address] [place] Hematocrit (Bld) [Volume fraction] 30.3 % Low 39.0-51.0 [facility] Comment on above: Order Comment: Speci men Type: BLOOD SPECIMENOrdering Facility: [facility] Address: [address] [place] [address] Performed By: #### 5 7021-8 ####[facility]PITALWSTANLIA [id number] [address] LABORATORYIA [id number] [place] [address] [place] Hemoglobin (Bld) [Mass/Vol] 10.2 g/dL Low 13.0-17.0 [facility] Comment on above: Order Comment: Speci men Type: BLOOD SPECIMENOrdering Facility: [facility] Address: [facility] [place] [address] Performed By: #### 5 7021-8 ####[facility]ILDRENNCLIA [id number] [address] LABORATORYCLIA [id number] [place] [address] [place] Lymphocytes (Bld) [#/Vol] 0.49 10*3/uL Low 1.00-4.00 [facility] Comment on above: Order Comment: Speci men Type: BLOOD SPECIMENOrdering Facility: [facility] Address: [address] [place] [address] Performed By: #### 5 7021-8 ####[facility] MILLTOWNCLIA [id number] [address] LABORATORYCLIA [id number] [place] [address] [place] Lymphocytes/100 WBC (Bld) 16.0 % Normal [facility] Comment on above: Order Comment: Speci men Type: BLOOD SPECIMENOrdering Facility: [facility] Address: [address] [place] [address] Performed By: #### 5 7021-8 ####[facility]ITALTOWNCLIA [id number] [address] LABORATORYCLIA [id number] [place] [address] [place] MCH (RBC) [Entitic mass] 32.1 pg Normal 26.0-34.0 [facility] Comment on above: Order Comment: Speci men Type: BLOOD SPECIMENOrdering Facility: [facility] Address: [address] [place] [address] Performed By: #### 5 7021-8 ####[facility]ITALTOWNCLIA [id number] [address] LABORATORYCLIA [id number] [place] [address] [place] MCHC (RBC) [Mass/Vol] 33.7 g/dL Normal 30.5-36.0 [facility] Comment on above: Order Comment: Speci men Type: BLOOD SPECIMENOrdering Facility: [facility] Address: [address] [place] [address] Performed By: #### 5 7021-8 ####[facility] MILLTOWNCLIA [id number] [address] LABORATORYCLIA [id number] [place] [address] [place] MCV (RBC) [Entitic vol] 95.3 fL Normal 80.0-100.0 [facility] Comment on above: Order Comment: Speci men Type: BLOOD SPECIMENOrdering Facility: [facility] Address: [address] [place] [address] Performed By: #### 5 7021-8 ####[facility] SOWMYATOWNCLIA [id number] [address] LABORATORYCLIA [id number] [place] [address] [place] Monocytes (Bld) [#/Vol] 0.06 10*3/uL Normal <0.87 [facility] Comment on above: Order Comment: Speci men Type: BLOOD SPECIMENOrdering Facility: [facility] Address: [address] [place] [address] Performed By: #### 5 7021-8 ####[facility] MILLTOWNCLIA [id number] [address] LABORATORYCLIA [id number] [place] [address] [place] Monocytes/100 WBC (Bld) 2.0 % Normal [facility] Comment on above: Order Comment: Speci men Type: BLOOD SPECIMENOrdering Facility: [facility] Address: [address] [place] [address] Performed By: #### 5 7021-8 ####[facility]DRENSTANLIA [id number] [address] LABORATORYCLIA [id number] [place] [address] [place] Neutrophils (Bld) [#/Vol] 2.43 10*3/uL Normal 1.45-7.50 [facility] Comment on above: Order Comment: Speci men Type: BLOOD SPECIMENOrdering Facility: [facility] Address: [address] [place] [address] Performed By: #### 5 7021-8 ####[facility]PITALWNCLIA [id number] [address] LABORATORYCLIA [id number] [place] [address] [place] Neutrophils/100 WBC (Bld) 79.0 % Normal [facility] Comment on above: Order Comment: Speci men Type: BLOOD SPECIMENOrdering Facility: [facility] Address: [address] [place] [address] Performed By: #### 5 7021-8 ####[facility]PITALWNCLIA [id number] [address] LABORATORYCLIA [id number] [place] [address] [place] Nucleated RBC (Bld) [#/Vol] 10*3/uL Normal <0.01 [facility] Comment on above: Order Comment: Speci men Type: BLOOD SPECIMENOrdering Facility: [facility] Address: [address] [place] [address] Performed By: #### 5 7021-8 ####[facility]PITALWNCLIA [id number] [address] LABORATORYCLIA [id number] [place] [address] [place] Nucleated RBC/100 WBC (Bld) [Ratio] 0.0 /100 WBC Normal [facility] Comment on above: Order Comment: Speci men Type: BLOOD SPECIMENOrdering Facility: [facility] Address: [address] [place] [address] Performed By: #### 5 7021-8 ####[facility] MED[facility] CENTERLIA [id number] [address] LABORATORYCLIA [id number] [place] [address] [place] Ovalocytes LM Ql (Bld) Few Normal Cl [facility] Comment on above: Order Comment: Speci men Type: BLOOD SPECIMENOrdering Facility: [facility] Address: [address] [place] [address] Performed By: #### 5 7021-8 ####[facility] [id number] [address] LABORATORYCLIA [id number] [place] [address] [place] Platelet mean volume (Bld) [Entitic vol] 9.2 fL Normal 9.0-12.7 [facility] Comment on above: Order Comment: Speci men Type: BLOOD SPECIMENOrdering Facility: [facility] Address: [address] [place] [address] Performed By: #### 5 7021-8 ####[facility] MIAMIA [id number] [address] LABORATORYCLIA [id number] [place] [address] [place] Platelets (Bld) [#/Vol] 81 10*3/uL Low 150-400 [facility] Comment on above: Order Comment: Speci men Type: BLOOD SPECIMENOrdering Facility: [facility] Address: [address] [place] [address] Result Comment: No c lot detected. Performed By: #### 5 7021-8 ####[facility] MILLTOWNCLIA [id number] [address] LABORATORYCLIA [id number] [address] Platelets Estimate (Bld) [#/Vol] Decreased Normal [facility] Comment on above: Order Comment: Speci men Type: BLOOD SPECIMENOrdering Facility: [facility] Address: [address] [place] [address] Performed By: #### 5 7021-8 ####[facility]DRENNCLIA [id number] [address] LABORATORYCLIA [id number] [place] [address] [place] [facility] RBC (Bld) [#/Vol] 3.18 10*6/uL Low 4.20-6.00 [facility] Comment on above: Order Comment: Speci men Type: BLOOD SPECIMENOrdering Facility: [facility] Address: [address] [place] [address] Performed By: #### 5 7021-8 ####[facility]DRENNCLIA [id number] [address] LABORATORYCLIA [id number] [address] RED CELL MORPH Reviewed: see result s of individual morphologies Normal [facility] Comment on above: Order Comment: Speci men Type: BLOOD SPECIMENOrdering Facility: [facility] Address: [address] [place] [address] Performed By: #### 5 7021-8 ####[facility]ITALWNCLIA [id number] [address] LABORATORYCLIA [id number] [place] [address] [place] WBC (Bld) [#/Vol] 3.07 10*3/uL Low 3.70-11.00 [facility] Comment on above: Order Comment: Speci men Type: BLOOD SPECIMENOrdering Facility: [facility] Address: [address] [place] [address] Performed By: #### 5 7021-8 ####[facility] [id number] [address] LABORATORYCLIA [id number] [place] [address] [place] Ferritin SerPl-mCncon 2024 Ferritin [Mass/Vol] 1669.0 ng/mL High 30.3-565.7 [facility] Comment on above: Order Comment: Speci men Type: BLOOD SPECIMENOrdering Facility: [facility] Address: [address] [place] [address] Performed By: #### 2 132-9, 2276-4, 2284-8, 95774-2 ####[facility] LABCLIA [id number] [place] [address] [place] Folate SerPl-mCncon 10-13-19 25 Folate [Mass/Vol] ng/mL Normal >4.[address] [facility] Comment on above: Order Comment: Speci men Type: BLOOD SPECIMENOrdering Facility: [facility] Address: [address] [place] [address] Result Comment: A re sult of > 20 ng/mL is not necessarily indicative of a pathologic or treatable condition: it reflects a limitation of the test methodology.Assay reference range: 4.8 to 24.2 ng/mL. Suitable for detection of folate deficiency.Reference:Folate III (Folate III) [package insert V 1.0 Taiwanese]. [facility], [place], [place]: December 2014. Performed By: #### 2 132-9, 2276-4, 2284-8, 99461-6 ####[facility] LABCLIA [id number] [place] [id number] [place] Iron and Iron binding capaci ty panelon 10-12-2024 Iron [Mass/Vol] 51 ug/dL Normal 41-186 [facility] Comment on above: Order Comment: Speci men Type: BLOOD SPECIMENOrdering Facility: [facility] Address: [address] [place] [address] Performed By: #### 2 132-9, 2276-4, 2284-8, 32367-0 ####[facility]ENTERIA [id number] [place] [address] [place] Iron binding capacity [Mass/Vol] 196 ug/dL Low 232-386 [facility] Comment on above: Order Comment: Speci men Type: BLOOD SPECIMENOrdering Facility: [facility] Address: [address] [place] [address] Performed By: #### 2 132-9, 2276-4, 2284-8, 72812-0 ####[facility] CENTERIA [id number] [place] [address] [place] Iron/TIBC [Molar ratio] 26.0 % Normal 15.0-57.0 [facility] Comment on above: Order Comment: Speci men Type: BLOOD SPECIMENOrdering Facility: [facility] Address: [address] [place] [address] Performed By: #### 2 132-9, 2276-4, 2284-8, 83026-6 ####[facility] LABIA [id number] [place] [address] [place] Methylmalonate SerPl-sCncon 10-12-2024 Methylmalonate [Moles/Vol] 0.17 umol/L Normal <=0.40 [facility] Comment on above: Order Comment: Speci men Type: BLOOD SPECIMENOrdering Facility: [facility] Address: [address] [place] [address] Result Comment: This test was developed, and its performance characteristics determined by the [facility] Department of Pathology and Laboratory Medicine. It has not been cleared or approved by the FDA. The [facility] Department of Pathology and Laboratory Medicine is regulated under CLIA as qualified to perform high-complexity testing. This test is used for clinical purposes. It should not be regarded as investigational or for research. Performed By: #### 1 3964-2 ####[facility] LABCLIA [id number] [address] OF [facility] PAT Call Historyon 5 Indirect Sales Exec Authentication Interface Message Text Telephone History Chance Munoz, [id number] 10/12/2024 78 year old HT: 70 inches WT: 141lbs Date of Surgery: 10/26/2024 Surgeon: Dr. Singh Type of Surgery: PAROTIDECTOMY HISTORY OF PRESENT ILLNESS: Chance Munoz is a 78 year old male patient who is being evaluated today for PAROTIDECTOMY. He has a h/o parotid mass. Currently denies fever and chills, new cough, SOB or CP. STOP-BANG Row Name 10/12/24 1614 History of sleep apnea? No Snoring No Tired/Fatigued No Observed Apnea No Pressure: Hypertension No BMI greater than 35 0 Age greater than 50 1 Neck circ greater than 40cm (15.75") Unable to Assess Gender male? 1 Score 2 EXERCISE CAPACITY: 4-10 mets. Patient states he can walk 3 blocks without difficulty. ALLERGIES: Lansoprazole, Alfuzosin, Cefaclor, Esomeprazole, Doxycycline, Levofloxacin, Morphine, Nortriptyline, and Penicillins PREVIOUS ANESTHETIC EXPERIENCES AND INTUBATION HISTORY: No previous anesthetic complication FAMILY HISTORY OF ANESTHETIC COMPLICATIONS: No PAST MEDICAL HISTORY: Medical History[1] PROBLEM LIST: Problem List[2] Past Medical History and Review of Systems Pulmonary (+) asthma Dental ROS (+) teeth problems missing Endo (+) diabetes mellitus type 2, hypothyroidism Comment: Thyroid nodule Neuro/Psych Comment: Intermittent headaches Cardiovascular (+) arrhythmia (PVC's and bradycardia), valvular problems/murmurs (mild ), hyperlipidemia (-) GONZALEZ, PND, orthopnea Comment: Patient follows with Dr. Monte (executive sales manager) at [facility]. Please see scanned media for last cardiology office visit on 05/18/2024, ECHO 06/15/2024, EKG and stress test. 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 CBC (last 3 years, up to 8 values) No lab values to display. BMP (last 3 years, up to 8 values) No lab values to display. Basic Metabolic Panel No lab values to display. PT/PTT/INR (last 3 years, up to 8 values) No lab values to display. Arterial Blood Gases None No result for BNP LFT's (last 3 years, up to 8 values) No lab values to display. Urinalysis No lab values to display. TESTS REVIEWED: CXRay: 02/27/2018 at [facility] FINDINGS: The cardiac silhouette is within normal limits. No focal consolidation is seen within the lungs. There is no large pleural effusion or pneumothorax. The bony structures of the chest are unremarkable as visualized. IMPRESSION: The extreme portion of the lung apices and lateral aspect of the left hemithorax is not included in the udeoq-sa-jtlr on this single portable film. No focal consolidation is seen within the lungs. EK02/27/2018 at [facility] Sinus rhythm Prolonged IA interval Left anterior fascicular block ECHO: 02/28/2018 at [facility] SUMMARY: 1. Left ventricle: Systolic function is normal by the biplane method of disks. The estimated ejection fraction is 66%. There are no regional wall motion abnormalities. 2. Right ventricle: The cavity size is normal. Systolic function is normal. 3. No significant valve disease. Stress test date: 03/19/2011 at [facility] CONCLUSIONS: - Exam indication: Ventricular Arrhythmia - The exercise stress echo was negative for ischemia at 98 % of MPHR (7.0 METS). - Left ventricular systolic function is normal. EF = 55 ??? 5% (visual est.) - Mild anterior mitral valve leaflet thickening with trivial MR. - Trivial-1+ TR. Unable to estimate RVSP. - Mild aortic sclerosis with no AI. - Trivial PI. - Ascending aorta is at the upper limits of normal. CURRENT MEDICATION LIST: No current outpatient medications on file. No current facility-administered medications for this visit. CURRENT MEDICATIONS: Aspirin: No NSAIDS: No Other Antiplatelet Medication: No Anticoagulants: No Steroids: No SGLT-2/GLP-1: No PATIENT MEDICATION INSTRUCTIONS: On the morning of your surgery, please take only the following medications, with a small sip of water: Proscar Flonase Synthroid Protonix Paxil Do not take any Aspirin after 10/18. Do not take any Ibuprofen, Aleve, Advil, or Motrin or any other NSAIDS after 10/22. May take over the counter Acetaminophen (Tylenol) as needed for pain Please hold all Vitamin E, [place] 3, fish oil and herbal supplements for 1 week prior to surgery DAY OF SURGERY NOTES: Please use this CHECKLIST to prepare for your surgery/procedure: ? Assume that any lab or testing done during your Pre-admission testing appointment (more content not included)... Normal [facility] [employer] [facility] Vit B12 SerPl-ncon 025 Cobalamin (Vitamin B12) [Mass/Vol] 364 pg/mL Normal 232-1245 [facility] Comment on above: Order Comment: Speci men Type: BLOOD SPECIMENOrdering Facility: [facility] Address: [address] [place] [address] Performed By: #### 2 132-9, 2276-4, 2284-8, 71425-3 ####[facility] LABCLIA [id number] [place] [address] [place] Telephone Encounteron 2024 Indirect Sales Exec Authentication Interface Message Text Patient called back and will keep 10/26 Normal [facility] [employer] [facility] [employer] [facility] Indirect Sales Exec Authentication Interface Message Text Disregard patient is keeping 10/26/24 for surgery Normal The [facility] Indirect Sales Exec Authentication Interface Message Text Patient spoke to PAT and wanted to cancel surgery with Baldev on 10/26. I called pt to follow up. He does want to still cancel surgery because if his secondary insurance not paying for surgery and also because his daughter is unable to take care of him, she is a teacher and can't take off until Jan. Patient wants to re-schedule surgery until nic break the third week of Jan. Normal [facility] [employer] [facility] [employer] [facility] Telephone Encounteron 2024 Indirect Sales Exec Authentication Interface Message Text Pt called to cancel surgery for 10-26-24 and p/o, pt opted not to go through with it. Please call back with questions, Phone numbers Thank you Normal [facility] [employer] [facility] [employer] [facility] CBC W Auto Differential pane l (Bld)on 09-21-2024 Basophils (Bld) [#/Vol] 10*3/uL Normal <0.11 [facility] Comment on above: Order Comment: Speci men Type: BLOOD SPECIMENOrdering Facility: [facility] Address: [address] [place] [address] Performed By: #### 5 7021-8 ####[facility] [id number] [place] [address] [place] Basophils/100 WBC (Bld) 0.0 % Normal [facility] Comment on above: Order Comment: Speci men Type: BLOOD SPECIMENOrdering Facility: [facility] Address: [address] [place] [address] Performed By: #### 5 7021-8 ####[facility] [id number] [place] [address] [place] Differential cell count method Nom (Bld) Auto Normal [facility] Comment on above: Order Comment: Speci men Type: BLOOD SPECIMENOrdering Facility: [facility] Address: [address] [place] [address] Performed By: #### 5 7021-8 ####[facility] [id number] [place] [address] [place] Eosinophils (Bld) [#/Vol] 10*3/uL Normal <0.46 [facility] Comment on above: Order Comment: Speci men Type: BLOOD SPECIMENOrdering Facility: [facility] Address: [address] [place] [address] Performed By: #### 5 7021-8 ####[facility] SOWMYAANDREWLIA [id number] [place] [address] [place] Eosinophils/100 WBC (Bld) 0.3 % Normal [facility] Comment on above: Order Comment: Speci men Type: BLOOD SPECIMENOrdering Facility: [facility] Address: [address] [place] [address] Performed By: #### 5 7021-8 ####[facility]STA[facility] [id number] [place] [address] [place] Erythrocyte distribution width (RBC) [Ratio] 13.9 % Normal 11.5-15.0 [facility] Comment on above: Order Comment: Speci men Type: BLOOD SPECIMENOrdering Facility: [facility] Address: [address] [place] [address] Performed By: #### 5 7021-8 ####[facility] MIAMIA [id number] [place] [address] [place] [place] Hematocrit (Bld) [Volume fraction] 30.2 % Low 39.0-51.0 [facility] Comment on above: Order Comment: Speci men Type: BLOOD SPECIMENOrdering Facility: [facility] Address: [address] [place] [address] Performed By: #### 5 7021-8 ####[facility]CLIA [id number] [place] [address] [place] Hemoglobin (Bld) [Mass/Vol] 10.3 g/dL Low 13.0-17.0 [facility] Comment on above: Order Comment: Speci men Type: BLOOD SPECIMENOrdering Facility: [facility] Address: [address] [place] [address] Performed By: #### 5 7021-8 ####[facility] CHILDRENSTANLIA [id number] [place] [address] [place] Immature granulocytes (Bld) [#/Vol] 0.08 10*3/uL Normal <0.10 [facility] Comment on above: Order Comment: Speci men Type: BLOOD SPECIMENOrdering Facility: [facility] Address: [address] [place] [address] Performed By: #### 5 7021-8 ####[facility] [id number] [place] [address] [place] Immature granulocytes/100 WBC (Bld) 2.1 % Normal [facility] Comment on above: Order Comment: Speci men Type: BLOOD SPECIMENOrdering Facility: [facility] Address: [address] [place] [address] Performed By: #### 5 7021-8 ####[facility] [id number] [place] [address] [place] Lymphocytes (Bld) [#/Vol] 0.56 10*3/uL Low 1.00-4.00 [facility] Comment on above: Order Comment: Speci men Type: BLOOD SPECIMENOrdering Facility: [facility] Address: [address] [place] [address] Performed By: #### 5 7021-8 ####[facility] [id number] [place] [address] [place] Lymphocytes/100 WBC (Bld) 14.8 % Normal [facility] Comment on above: Order Comment: Speci men Type: BLOOD SPECIMENOrdering Facility: [facility] Address: [address] [place] [address] Performed By: #### 5 7021-8 ####[facility] [id number] [place] [address] [place] MCH (RBC) [Entitic mass] 31.4 pg Normal 26.0-34.0 [facility] Comment on above: Order Comment: Speci men Type: BLOOD SPECIMENOrdering Facility: [facility] Address: [address] [place] [address] Performed By: #### 5 7021-8 ####[facility] [id number] [place] [address] [place] MCHC (RBC) [Mass/Vol] 34.1 g/dL Normal 30.5-36.0 [facility] Comment on above: Order Comment: Speci men Type: BLOOD SPECIMENOrdering Facility: [facility] Address: [address] [place], [place] [address] Performed By: #### 5 7021-8 ####[facility] [id number] [place] [address] [place] MCV (RBC) [Entitic vol] 92.1 fL Normal 80.0-100.0 [facility] Comment on above: Order Comment: Speci men Type: BLOOD SPECIMENOrdering Facility: [facility] Address: [address] [place] [address] Performed By: #### 5 7021-8 ####[facility] [id number] [place] [address] [place] Monocytes (Bld) [#/Vol] 0.21 10*3/uL Normal <0.87 [facility] Comment on above: Order Comment: Speci men Type: BLOOD SPECIMENOrdering Facility: [facility] Address: [address] [place] [address] Performed By: #### 5 7021-8 ####[facility] [id number] [place] [address] [place] Monocytes/100 WBC (Bld) 5.5 % Normal [facility] Comment on above: Order Comment: Speci men Type: BLOOD SPECIMENOrdering Facility: [facility] Address: [address] [place] [address] Performed By: #### 5 7021-8 ####[facility] MILLTOWNCLIA [id number] [place] [address] [place] Neutrophils (Bld) [#/Vol] 2.93 10*3/uL Normal 1.45-7.50 [facility] Comment on above: Order Comment: Speci men Type: BLOOD SPECIMENOrdering Facility: [facility] Address: [address] [place] [address] Performed By: #### 5 7021-8 ####[facility] MILLWNCLIA [id number] [place] [address] [place] Neutrophils/100 WBC (Bld) 77.3 % Normal [facility] Comment on above: Order Comment: Speci men Type: BLOOD SPECIMENOrdering Facility: [facility] Address: [address] [place] [address] Performed By: #### 5 7021-8 ####[facility]OSPITALWNCLIA [id number] [place] [address] [place] Nucleated RBC (Bld) [#/Vol] 10*3/uL Normal <0.01 [facility] Comment on above: Order Comment: Speci men Type: BLOOD SPECIMENOrdering Facility: [facility] Address: [address] [place] [address] Performed By: #### 5 7021-8 ####[facility] MILLTOWNCLIA [id number] [place] [address] [place] Nucleated RBC/100 WBC (Bld) [Ratio] 0.0 /100 WBC Normal [facility] Comment on above: Order Comment: Speci men Type: BLOOD SPECIMENOrdering Facility: [facility] Address: [address] [place] [address] Performed By: #### 5 7021-8 ####[facility] MILLWNCLIA [id number] [place] [address] [place] Platelet mean volume (Bld) [Entitic vol] 8.6 fL Low 9.0-12.7 [facility] Comment on above: Order Comment: Speci men Type: BLOOD SPECIMENOrdering Facility: [facility] Address: [address] [place] [address] Performed By: #### 5 7021-8 ####[facility] LUCY [id number] [place] [address] [place] Platelets (Bld) [#/Vol] 127 10*3/uL Low 150-400 [facility] Comment on above: Order Comment: Speci men Type: BLOOD SPECIMENOrdering Facility: [facility] Address: [address] [place] [address] Performed By: #### 5 7021-8 ####[facility]DRENSTANPEPE [id number] [place] [address] [place] RBC (Bld) [#/Vol] 3.28 10*6/uL Low 4.20-6.00 [facility] Comment on above: Order Comment: Speci men Type: BLOOD SPECIMENOrdering Facility: [facility] Address: [address] [place] [address] Performed By: #### 5 7021-8 ####[facility] SOWMYACLIOGMA [id number] [place] [address] [place] WBC (Bld) [#/Vol] 3.79 10*3/uL Normal 3.70-11.00 [facility] Comment on above: Order Comment: Speci men Type: BLOOD SPECIMENOrdering Facility: [facility] Address: [address] [place] [address] Performed By: #### 5 7021-8 ####[facility]DRENNCLIA [id number] [address] [place] CNOVSPon 09-21-2024 CNOVSP Normal [facility] Ferritin SerPl-mCncon 2024 Ferritin [Mass/Vol] 1784.0 ng/mL High 30.3-565.7 [facility] Comment on above: Order Comment: Speci men Type: BLOOD SPECIMENOrdering Facility: [facility] Address: [address] [place] [address] Performed By: #### 5 0190-8, 2275- ####[facility] LABCLIA [id number] [place] [address] [place] Iron and Iron binding capaci ty panelon 09-21-2024 Iron [Mass/Vol] 33 ug/dL Low 41-186 [facility] Comment on above: Order Comment: Speci men Type: BLOOD SPECIMENOrdering Facility: [facility] Address: [address] [place] [address] Performed By: #### 5 0190-8, 2275-05 ####[facility] LABCLIA [id number] [address] [place] Iron binding capacity [Mass/Vol] 197 ug/dL Low 232-386 [facility] Comment on above: Order Comment: Speci men Type: BLOOD SPECIMENOrdering Facility: [facility] Address: [address] [place] [address] Performed By: #### 5 0190-8, 2275-05 ####[facility] LABCLIA [id number] [place] [address] [place] Iron/TIBC [Molar ratio] 16.8 % Normal 15.0-57.0 [facility] Comment on above: Order Comment: Speci men Type: BLOOD SPECIMENOrdering Facility: [facility] Address: [address] [place] [address] Performed By: #### 5 0190-8, 2275- ####[facility] LABCLIA [id number] [place] [address] [place] Telephone Encounteron 2024 Indirect Sales Exec Authentication Interface Message Text I spoke with Ed and gave him the results of his biopsy. The sample was still hypocellular with proteinaceous material which likely represents a cyst like a warthin's tumor. He would like to have it removed so I will place the surgery order and have someone reach out to schedule Normal [email or web address] System Progress Noteson 09-17-2024 Indirect Sales Exec Authentication Interface Message Text CC: Chief Complaint Patient presents with New patient, to establish relationship Since last November has had a mass/lump on left side of face HPI: Chance Munoz is a 78 year old male referred by Dr. Melara from [place] for evaluation of a left-side parotid mass, present since November. Patient feels like it's grown, but only a small amount. No facial weakness or skin involvement. No history of similar problems. Minor tenderness and pain on touch, which radiates to the ear. Patient did have a scan for it. It's not debilitating, but it does bother him. He's had a needle biopsy, which was inconclusive, but notes the mass went down significantly after the procedure. Medical History[1] Surgical History[2] Allergies Patient has no allergy information on record. Medications No current outpatient medications on file. No current facility-administered medications for this visit. Family History The patient's family history is not on file.. Social History: Social History[3] Review of Systems - as per HPI, otherwise the balance of 10 systems is negative Physical Exam Vitals: 09/17/24 1045 BP: 110/59 Pulse: 64 Temp: 98.9 ???F (37.2 ???C) SpO2: 97% General apperance: WN/WD adult in no apparent distress, sitting in a chair Ability to communicate: normal voice without hoarseness Head and Face: Atraumatic, normocephalic; skin with no masses or lesions; sinuses nontender to palpation, face symmetric with normal movement Salivary Glands: 1-1.5 cm mobile mass left anterior tail of parotid. Ears:External ears are intact without any lesions or masses. Eyes: EOM Intact, sclera anicteric, no conjunctival injection. Nose: External nose midline Oral Cavity: Lips, gums, gingiva are normal; the floor of mouth and tongue are soft w/out lesions. Tongue protrusion is midline and non-tethered. Oropharynx: the soft palate, tonsils, and lateral pharyngeal pruett are without lesions or masses; Neck: no LAD CV: No clubbing/cyanosis/edema in hands Respiration: Breathing comfortably, no stridor or stertor Neuro: A AND Ox3, Cranial nerves 2-12 intact and symmetric. Normal affect. Procedure: Ultrasound guided biopsy Indication: Parotid mass Anesthetic: 1% lidocaine with epinephrine Details: Used 25 gauge needle and ultrasound. Aspirated the mass. Made 4 passes. Mass was fluid-filled; after aspiration, it was quite a bit smaller. Assessment/Recommendation s: Chance Munoz is a 78 year old male who presents today for: 1. Parotid mass - Patient wants the mass removed due to the pain and discomfort. 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 - Discussed risks and benefits. Patient is on board. Electronically signed by Lonnie Lang scribing for and in the presence of Dr. Robert Singh on 09/17/2024 at 10:55 AM ------- All medical record entries made by the scribe were at my direction and personally dictated by me. I have reviewed and edited the record and confirm that the note above accurately reflects all work, treatment, procedures, and medical decision making performed by me. Robert Singh MD ------- [1] No past medical history on file. [2] No past surgical history on file. [3] Social History Socioeconomic History Marital status: Unknown Tobacco Use Smoking status: Never Passive exposure: Past Smokeless tobacco: Never Normal The [employer] CBC W Auto Differential pane l (Bld)on 09-13-2024 Basophils (Bld) [#/Vol] 10*3/uL Normal <0.11 [facility] Comment on above: Order Comment: Speci men Type: BLOOD SPECIMENOrdering Facility: [facility] Address: [address] [place] [address] Performed By: #### 5 7021-8 ####[facility]OSPITALWNCLIA [id number] [place] [address] [place] Basophils/100 WBC (Bld) 0.0 % Normal [facility] Comment on above: Order Comment: Speci men Type: BLOOD SPECIMENOrdering Facility: [facility] Address: [address] [place] [address] Performed By: #### 5 7021-8 ####[facility]PITALWNCLIA [id number] [place] [address] [place] Differential cell count method Nom (Bld) Auto Normal [facility] Comment on above: Order Comment: Speci men Type: BLOOD SPECIMENOrdering Facility: [facility] Address: [address] [place] [address] Performed By: #### 5 7021-8 ####[facility]ITALWNCLIA [id number] [place] [address] [place] Eosinophils (Bld) [#/Vol] 10*3/uL Normal <0.46 [facility] Comment on above: Order Comment: Speci men Type: BLOOD SPECIMENOrdering Facility: [facility] Address: [address] [place] [address] Performed By: #### 5 7021-8 ####[facility] MILLWNCLIA [id number] [place] [address] [place] Eosinophils/100 WBC (Bld) 0.3 % Normal [facility] Comment on above: Order Comment: Speci men Type: BLOOD SPECIMENOrdering Facility: [facility] Address: [address] [place] [address] Performed By: #### 5 7021-8 ####[facility] MED[facility] CENTERLIA [id number] [place] [address] [place] Erythrocyte distribution width (RBC) [Ratio] 14.2 % Normal 11.5-15.0 [facility] Comment on above: Order Comment: Speci men Type: BLOOD SPECIMENOrdering Facility: [facility] Address: [address] [place] [address] Performed By: #### 5 7021-8 ####[facility] [id number] [place] [address] [place] Hematocrit (Bld) [Volume fraction] 31.8 % Low 39.0-51.0 [facility] Comment on above: Order Comment: Speci men Type: BLOOD SPECIMENOrdering Facility: [facility] Address: [address] [place] [address] Performed By: #### 5 7021-8 ####[facility] [id number] [place] [address] [place] Hemoglobin (Bld) [Mass/Vol] 10.6 g/dL Low 13.0-17.0 [facility] Comment on above: Order Comment: Speci men Type: BLOOD SPECIMENOrdering Facility: [facility] Address: [address] [place] [address] Performed By: #### 5 7021-8 ####[facility] [id number] [place] [address] [place] Immature granulocytes (Bld) [#/Vol] 0.08 10*3/uL Normal <0.10 [facility] Comment on above: Order Comment: Speci men Type: BLOOD SPECIMENOrdering Facility: [facility] Address: [address] [place] [address] Performed By: #### 5 7021-8 ####[facility] [id number] [place] [address] [place] Immature granulocytes/100 WBC (Bld) 2.2 % Normal [facility] Comment on above: Order Comment: Speci men Type: BLOOD SPECIMENOrdering Facility: [facility] Address: [address] [place] [address] Performed By: #### 5 7021-8 ####[facility]DRENNCA [id number] [place] [address] [place] Lymphocytes (Bld) [#/Vol] 0.58 10*3/uL Low 1.00-4.00 [facility] Comment on above: Order Comment: Speci men Type: BLOOD SPECIMENOrdering Facility: [facility] Address: [address] [place] [address] Performed By: #### 5 7021-8 ####[facility] [id number] [place] [address] [place] Lymphocytes/100 WBC (Bld) 15.6 % Normal [facility] Comment on above: Order Comment: Speci men Type: BLOOD SPECIMENOrdering Facility: [facility] Address: [address] [place] [address] Performed By: #### 5 7021-8 ####[facility]DRENNCLI [id number] [place] [address] [place] MCH (RBC) [Entitic mass] 31.1 pg Normal 26.0-34.0 [facility] Comment on above: Order Comment: Speci men Type: BLOOD SPECIMENOrdering Facility: [facility] Address: [address] [place] [address] Performed By: #### 5 7021-8 ####[facility] CENTERLI [id number] [place] [address] [place] MCHC (RBC) [Mass/Vol] 33.3 g/dL Normal 30.5-36.0 [facility] Comment on above: Order Comment: Speci men Type: BLOOD SPECIMENOrdering Facility: [facility] Address: [address] [place] [address] Performed By: #### 5 7021-8 ####[facility] SOWMYAVALERIO [id number] [place] [address] [place] MCV (RBC) [Entitic vol] 93.3 fL Normal 80.0-100.0 [facility] Comment on above: Order Comment: Speci men Type: BLOOD SPECIMENOrdering Facility: [facility] Address: [address] [place] [address] Performed By: #### 5 7021-8 ####[facility] [id number] [place] [address] [place] Monocytes (Bld) [#/Vol] 0.26 10*3/uL Normal <0.87 [facility] Comment on above: Order Comment: Speci men Type: BLOOD SPECIMENOrdering Facility: [facility] Address: [address] [place] [address] Performed By: #### 5 7021-8 ####[facility] MIAMISolo [id number] [place] [address] [place] Monocytes/100 WBC (Bld) 7.0 % Normal [facility] Comment on above: Order Comment: Speci men Type: BLOOD SPECIMENOrdering Facility: [facility] Address: [address] [place] [address] Performed By: #### 5 7021-8 ####[facility] [id number] [place] [address] [place] Neutrophils (Bld) [#/Vol] 2.79 10*3/uL Normal 1.45-7.50 [facility] Comment on above: Order Comment: Speci men Type: BLOOD SPECIMENOrdering Facility: [facility] Address: [address] [place] [address] Performed By: #### 5 7021-8 ####[facility] CENTERLIA [id number] [place] [address] [place] Neutrophils/100 WBC (Bld) 74.9 % Normal [facility] Comment on above: Order Comment: Speci men Type: BLOOD SPECIMENOrdering Facility: [facility] Address: [address] [place] [address] Performed By: #### 5 7021-8 ####[facility] CENTERLI [id number] [place] [address] [place] Nucleated RBC (Bld) [#/Vol] 0.02 10*3/uL High <0.01 [facility] Comment on above: Order Comment: Speci men Type: BLOOD SPECIMENOrdering Facility: [facility] Address: [address] [place] [address] Performed By: #### 5 7021-8 ####[facility] [id number] [place] [address] [place] Nucleated RBC/100 WBC (Bld) [Ratio] 0.5 /100 WBC Normal [facility] Comment on above: Order Comment: Speci men Type: BLOOD SPECIMENOrdering Facility: [facility] Address: [address] [place] [address] Performed By: #### 5 7021-8 ####[facility] [id number] [place] [address] [place] Platelet mean volume (Bld) [Entitic vol] 8.5 fL Low 9.0-12.7 [facility] Comment on above: Order Comment: Speci men Type: BLOOD SPECIMENOrdering Facility: [facility] Address: [address] [place] [address] Performed By: #### 5 7021-8 ####[facility] [id number] [place] [address] [place] Platelets (Bld) [#/Vol] 136 10*3/uL Low 150-400 [facility] Comment on above: Order Comment: Speci men Type: BLOOD SPECIMENOrdering Facility: [facility] Address: [address] [place] [address] Performed By: #### 5 7021-8 ####[facility]DRENNCLATASHAA [id number] [place] [address] [place] RBC (Bld) [#/Vol] 3.41 10*6/uL Low 4.20-6.00 [facility] Comment on above: Order Comment: Speci men Type: BLOOD SPECIMENOrdering Facility: [facility] Address: [address] [place] [address] Performed By: #### 5 7021-8 ####[facility]DRENNCLATASHAA [id number] [place] [address] [place] WBC (Bld) [#/Vol] 3.72 10*3/uL Normal 3.70-11.00 [facility] Comment on above: Order Comment: Speci men Type: BLOOD SPECIMENOrdering Facility: [facility] Address: [address] [place] [address] Performed By: #### 5 7021-8 ####[facility]ENNCLIA [id number] [place] [address] [place] CBC W Auto Differential pane l (Bld)on 08-31-2024 Basophils (Bld) [#/Vol] 0.00 10*3/uL Normal <0.11 [facility] Comment on above: Order Comment: Speci men Type: BLOOD SPECIMENOrdering Facility: [facility] Address: [address] [place] [address] Performed By: #### 5 7021-8 ####[facility]DRENNCLIA [id number] [address] LABORATORYCLIA [id number] [place] [address] [place] Basophils/100 WBC (Bld) 0.0 % Normal [facility] Comment on above: Order Comment: Speci men Type: BLOOD SPECIMENOrdering Facility: [facility] Address: [address] [place] [address] Performed By: #### 5 7021-8 ####[facility] MILLTOWNCLIA [id number] [address] LABORATORYCLIA [id number] [place] [address] [place] Dacrocytes LM Ql (Bld) Few Normal Cl [facility] Comment on above: Order Comment: Speci men Type: BLOOD SPECIMENOrdering Facility: [facility] Address: [address] [place] [address] Performed By: #### 5 7021-8 ####[facility] MILLTOWNCLIA [id number] [address] LABORATORYCLIA [id number] [address] [place] Differential cell count method Nom (Bld) Manual Normal [facility] Comment on above: Order Comment: Speci men Type: BLOOD SPECIMENOrdering Facility: [facility] Address: [address] [place] [address] Performed By: #### 5 7021-8 ####[facility] MILLTOWNCLIA [id number] [address] LABORATORYCLIA [id number] [place] [address] [place] Eosinophils (Bld) [#/Vol] 0.03 10*3/uL Normal <0.46 [facility] Comment on above: Order Comment: Speci men Type: BLOOD SPECIMENOrdering Facility: [facility] Address: [address] [place] [address] Performed By: #### 5 7021-8 ####[facility] SOWMYABLASWNCLIA [id number] [address] LABORATORYCLIA [id number] [place] [address] [place] Eosinophils/100 WBC (Bld) 1.0 % Normal [facility] Comment on above: Order Comment: Speci men Type: BLOOD SPECIMENOrdering Facility: [facility] Address: [address] [place] [address] Performed By: #### 5 7021-8 ####[facility]DRENSTANLIA [id number] [address] LABORATORYCLIA [id number] [place] [address] [place] Erythrocyte distribution width (RBC) [Ratio] 14.0 % Normal 11.5-15.0 [facility] Comment on above: Order Comment: Speci men Type: BLOOD SPECIMENOrdering Facility: [facility] Address: [address] [place] [address] Performed By: #### 5 7021-8 ####[facility] SOWMYABLASWNCLIA [id number] [address] LABORATORYCLIA [id number] [place] [address] [place] Hematocrit (Bld) [Volume fraction] 32.9 % Low 39.0-51.0 [facility] Comment on above: Order Comment: Speci men Type: BLOOD SPECIMENOrdering Facility: [facility] Address: [address] [place], [place] [address] Performed By: #### 5 7021-8 ####[facility] MILLTOWNCLIA [id number] [address]UNSWICK F[facility] LABORATORYCLIA [id number] [place] [address] [place] Hemoglobin (Bld) [Mass/Vol] 11.3 g/dL Low 13.0-17.0 [facility] Comment on above: Order Comment: Speci men Type: BLOOD SPECIMENOrdering Facility: [facility] Address: [address] [place] [address] Performed By: #### 5 7021-8 ####[facility] MILLTOWNCLIA [id number] [address] LABORATORYCLIA [id number] [place] [address] [place] Lymphocytes (Bld) [#/Vol] 0.45 10*3/uL Low 1.00-4.00 [facility] Comment on above: Order Comment: Speci men Type: BLOOD SPECIMENOrdering Facility: [facility] Address: [address] [place] [address] Performed By: #### 5 7021-8 ####[facility]ITALTOWNCLIA [id number] [address] LABORATORYCLIA [id number] [address] [place] Lymphocytes/100 WBC (Bld) 14.0 % Normal [facility] Comment on above: Order Comment: Speci men Type: BLOOD SPECIMENOrdering Facility: [facility] Address: [address] [place] [address] Performed By: #### 5 7021-8 ####[facility]OSPITALWNCLIA [id number] [address] LABORATORYCLIA [id number] [place] [address] [place] MCH (RBC) [Entitic mass] 31.9 pg Normal 26.0-34.0 [facility] Comment on above: Order Comment: Speci men Type: BLOOD SPECIMENOrdering Facility: [facility] Address: [address] [place] [address] Performed By: #### 5 7021-8 ####[facility] MICHAELNCLIA [id number] [address] LABORATORYCLIA [id number] [place] [address] [place] MCHC (RBC) [Mass/Vol] 34.3 g/dL Normal 30.5-36.0 [facility] Comment on above: Order Comment: Speci men Type: BLOOD SPECIMENOrdering Facility: [facility] Address: [address] [place] [address] Performed By: #### 5 7021-8 ####[facility]ILDRENNCLIA [id number] [address] LABORATORYCLIA [id number] [place] [address] [place] MCV (RBC) [Entitic vol] 92.9 fL Normal 80.0-100.0 [facility] Comment on above: Order Comment: Speci men Type: BLOOD SPECIMENOrdering Facility: [facility] Address: [address] [place] [address] Performed By: #### 5 7021-8 ####[facility]DRENNCLIA [id number] [address] LABORATORYCLIA [id number] [place] [address] [place] Monocytes (Bld) [#/Vol] 0.22 10*3/uL Normal <0.87 [facility] Comment on above: Order Comment: Speci men Type: BLOOD SPECIMENOrdering Facility: [facility] Address: [address] [place] [address] Performed By: #### 5 7021-8 ####[facility] MILLTOWNCLIA [id number] [address] LABORATORYCLIA [id number] [place] [address] [place] Monocytes/100 WBC (Bld) 7.0 % Normal [facility] Comment on above: Order Comment: Speci men Type: BLOOD SPECIMENOrdering Facility: [facility] Address: [address] [place] [address] Performed By: #### 5 7021-8 ####[facility] HOSPITALWNCLIA [id number] [address] LABORATORYIA [id number] [place] [address] [place] MYELO% 1.0 % Normal [facility] Comment on above: Order Comment: Speci men Type: BLOOD SPECIMENOrdering Facility: [facility] Address: [address] [place] [address] Performed By: #### 5 7021-8 ####[facility] MEDICAL CENTERLIA [id number] [address] LABORATORYCLIA [id number] [place] [address] [place] Neutrophils (Bld) [#/Vol] 2.45 10*3/uL Normal 1.45-7.50 [facility] Comment on above: Order Comment: Speci men Type: BLOOD SPECIMENOrdering Facility: [facility] Address: [address] [place] [address] Performed By: #### 5 7021-8 ####[facility] HOSPITALWNCLIA [id number] [address] LABORATORYCLIA [id number] [place] [address] [place] Neutrophils/100 WBC (Bld) 77.0 % Normal [facility] Comment on above: Order Comment: Speci men Type: BLOOD SPECIMENOrdering Facility: [facility] Address: [address] [place] [address] Performed By: #### 5 7021-8 ####[facility]ITALTOWNCLIA [id number] [address] LABORATORYCLIA [id number] [place] [address] [place] Nucleated RBC (Bld) [#/Vol] 10*3/uL Normal <0.01 [facility] Comment on above: Order Comment: Speci men Type: BLOOD SPECIMENOrdering Facility: [facility] Address: [address] [place] [address] Performed By: #### 5 7021-8 ####[facility] HOSPITALWST. CL[facility] SYSTEMA [id number] [address] LABORATORYCLIA [id number] [place] [address] [place] Nucleated RBC/100 WBC (Bld) [Ratio] 0.0 /100 WBC Normal [facility] Comment on above: Order Comment: Speci men Type: BLOOD SPECIMENOrdering Facility: [facility] Address: [address] [place] [address] Performed By: #### 5 7021-8 ####[facility] MIAMIA [id number] [address] LABORATORYCLIA [id number] [place] [address] [place] Ovalocytes LM Ql (Bld) Few Normal [facility] Comment on above: Order Comment: Speci men Type: BLOOD SPECIMENOrdering Facility: [facility] Address: [address] [place] [address] Performed By: #### 5 7021-8 ####[facility]OSPITALWNCLIA [id number] [address] LABORATORYCLIA [id number] [place] [address] [place] Platelet mean volume (Bld) [Entitic vol] 8.8 fL Low 9.0-12.7 [facility] Comment on above: Order Comment: Speci men Type: BLOOD SPECIMENOrdering Facility: [facility] Address: [address] [place] [address] Performed By: #### 5 7021-8 ####[facility] MILLWNCLIA [id number] [address] LABORATORYCLIA [id number] [place] [address] [place] Platelets (Bld) [#/Vol] 125 10*3/uL Low 150-400 [facility] Comment on above: Order Comment: Speci men Type: BLOOD SPECIMENOrdering Facility: [facility] Address: [address] [place] [address] Performed By: #### 5 7021-8 ####[facility] HOSPITALWNCLIA [id number] [address] LABORATORYCLIA [id number] [place] [address] [place] Platelets Estimate (Bld) [#/Vol] Adequate Normal [facility] Comment on above: Order Comment: Speci men Type: BLOOD SPECIMENOrdering Facility: [facility] Address: [address] [place] [address] Performed By: #### 5 7021-8 ####[facility] MILLWNCLIA [id number] [address] LABORATORYCLIA [id number] [place] [address] [place] RBC (Bld) [#/Vol] 3.54 10*6/uL Low 4.20-6.00 [facility] Comment on above: Order Comment: Speci men Type: BLOOD SPECIMENOrdering Facility: [facility] Address: [address] [place] [address] Performed By: #### 5 7021-8 ####[facility]OSPITALWNCLIA [id number] [address] LABORATORYCLIA [id number] [place] [address] [place] RED CELL MORPH Reviewed: see result s of individual morphologies Normal [facility] Comment on above: Order Comment: Speci men Type: BLOOD SPECIMENOrdering Facility: [facility] Address: [address] [place] [address] Performed By: #### 5 7021-8 ####[facility] MIAMIA [id number] [address] LABORATORYCLIA [id number] [place] [address] [place] Toxic granules LM Ql (Bld) Present Normal [facility] Comment on above: Order Comment: Speci men Type: BLOOD SPECIMENOrdering Facility: [facility] Address: [address] [place] [address] Performed By: #### 5 7021-8 ####[facility] MIAMIA [id number] [address] LABORATORYCLIA [id number] [place] [address] [place] WBC (Bld) [#/Vol] 3.18 10*3/uL Low 3.70-11.00 [facility] Comment on above: Order Comment: Speci men Type: BLOOD SPECIMENOrdering Facility: [facility] Address: [address] [place] [address] Performed By: #### 5 7021-8 ####[facility] CHILDRENNCLIA [id number] [address] LABORATORYCLIA [id number] [address] Telephone Encounteron 2024 [employer]irect [employer] Authentication Interface Message Text Heladio [email or web address]. I scheduled this patient from [place] for 09/01 because he absolutely could not do the 8th. Fingers crossed, patient is aware there is a chance he will be r/s but he is ok with that. Referral Scanned in Media. Normal [facility] [employer] CBC W Auto Differential pane l (Bld)on 08-11-2024 Basophils (Bld) [#/Vol] 10*3/uL Normal <0.11 [facility] Comment on above: Order Comment: Speci men Type: BLOOD SPECIMENOrdering Facility: [facility] Address: [address] [place] [address] Performed By: #### 5 7021-8 ####[facility] MIAMIA [id number] [place] [address] [place] Basophils/100 WBC (Bld) 0.0 % Normal [facility] Comment on above: Order Comment: Speci men Type: BLOOD SPECIMENOrdering Facility: [facility] Address: [address] [place] [address] Performed By: #### 5 7021-8 ####[facility] [id number] [address] [place] Differential cell count method Nom (Bld) Auto Normal [facility] Comment on above: Order Comment: Speci men Type: BLOOD SPECIMENOrdering Facility: [facility] Address: [address] [place] [address] Performed By: #### 5 7021-8 ####[facility] [id number] [place] [address] [place] Eosinophils (Bld) [#/Vol] 10*3/uL Normal <0.46 [facility] Comment on above: Order Comment: Speci men Type: BLOOD SPECIMENOrdering Facility: [facility] Address: [address] [place] [address] Performed By: #### 5 7021-8 ####[facility] HOSPITALWNCLIA [id number] [place] [address] [place] Eosinophils/100 WBC (Bld) 0.3 % Normal [facility] Comment on above: Order Comment: Speci men Type: BLOOD SPECIMENOrdering Facility: [facility] Address: [address] [place] [address] Performed By: #### 5 7021-8 ####[facility] [id number] [place] [address] [place] Erythrocyte distribution width (RBC) [Ratio] 13.4 % Normal 11.5-15.0 [facility] Comment on above: Order Comment: Speci men Type: BLOOD SPECIMENOrdering Facility: [facility] Address: [address] [place] [address] Performed By: #### 5 7021-8 ####[facility] [id number] [place] [address] [place] Hematocrit (Bld) [Volume fraction] 30.9 % Low 39.0-51.0 [facility] Comment on above: Order Comment: Speci men Type: BLOOD SPECIMENOrdering Facility: [facility] Address: [address] [place] [address] Performed By: #### 5 7021-8 ####[facility] [id number] [place] [address] [place] Hemoglobin (Bld) [Mass/Vol] 10.4 g/dL Low 13.0-17.0 [facility] Comment on above: Order Comment: Speci men Type: BLOOD SPECIMENOrdering Facility: [facility] Address: [address] [place] [address] Performed By: #### 5 7021-8 ####[facility] SOWMYARIVERVIEW HOSPITALLIA [id number] [place] [address] [place] Immature granulocytes (Bld) [#/Vol] 0.03 10*3/uL Normal <0.10 [facility] Comment on above: Order Comment: Speci men Type: BLOOD SPECIMENOrdering Facility: [facility] Address: [address] [place] [address] Performed By: #### 5 7021-8 ####[facility] MIAMIA [id number] [place] [address] [place] Immature granulocytes/100 WBC (Bld) 1.0 % Normal [facility] Comment on above: Order Comment: Speci men Type: BLOOD SPECIMENOrdering Facility: [facility] Address: [address] [place] [address] Performed By: #### 5 7021-8 ####[facility] MIAMIA [id number] [place] [address] [place] Lymphocytes (Bld) [#/Vol] 0.60 10*3/uL Low 1.00-4.00 [facility] Comment on above: Order Comment: Speci men Type: BLOOD SPECIMENOrdering Facility: [facility] Address: [address] [place] [address] Performed By: #### 5 7021-8 ####[facility] CENTERLIA [id number] [place] [address] [place] Lymphocytes/100 WBC (Bld) 19.2 % Normal [facility] Comment on above: Order Comment: Speci men Type: BLOOD SPECIMENOrdering Facility: [facility] Address: [address] [place] [address] Performed By: #### 5 7021-8 ####[facility] HOSPITALVALERIO [id number] [place] [address] [place] MCH (RBC) [Entitic mass] 31.2 pg Normal 26.0-34.0 [facility] Comment on above: Order Comment: Speci men Type: BLOOD SPECIMENOrdering Facility: [facility] Address: [address] [place] [address] Performed By: #### 5 7021-8 ####[facility] CHILDRENMANUEL [id number] [place] [address] [place] MCHC (RBC) [Mass/Vol] 33.7 g/dL Normal 30.5-36.0 [facility] Comment on above: Order Comment: Speci men Type: BLOOD SPECIMENOrdering Facility: [facility] Address: [address] [place] [address] Performed By: #### 5 7021-8 ####[facility] [id number] [place] [address] [place] MCV (RBC) [Entitic vol] 92.8 fL Normal 80.0-100.0 [facility] Comment on above: Order Comment: Speci men Type: BLOOD SPECIMENOrdering Facility: [facility] Address: [address] [place] [address] Performed By: #### 5 7021-8 ####[facility] MIAMISolo [id number] [place] [address] [place] Monocytes (Bld) [#/Vol] 0.17 10*3/uL Normal <0.87 [facility] Comment on above: Order Comment: Speci men Type: BLOOD SPECIMENOrdering Facility: [facility] Address: [address] [place] [address] Performed By: #### 5 7021-8 ####[facility] CHILDRENNCLIA [id number] [place] [address] [place] Monocytes/100 WBC (Bld) 5.4 % Normal [facility] Comment on above: Order Comment: Speci men Type: BLOOD SPECIMENOrdering Facility: [facility] Address: [address] [place] [address] Performed By: #### 5 7021-8 ####[facility] CHILDRENNCA [id number] [place] [address] [place] Neutrophils (Bld) [#/Vol] 2.31 10*3/uL Normal 1.45-7.50 [facility] Comment on above: Order Comment: Speci men Type: BLOOD SPECIMENOrdering Facility: [facility] Address: [address] [place] [address] Performed By: #### 5 7021-8 ####[facility] [id number] [place] [address] [place] Neutrophils/100 WBC (Bld) 74.1 % Normal [facility] Comment on above: Order Comment: Speci men Type: BLOOD SPECIMENOrdering Facility: [facility] Address: [address] [place] [address] Performed By: #### 5 7021-8 ####[facility] [id number] [place] [address] [place] Nucleated RBC (Bld) [#/Vol] 0.02 10*3/uL High <0.01 [facility] Comment on above: Order Comment: Speci men Type: BLOOD SPECIMENOrdering Facility: [facility] Address: [address] [place] [address] Performed By: #### 5 7021-8 ####[facility] [id number] [place] [address] [place] Nucleated RBC/100 WBC (Bld) [Ratio] 0.6 /100 WBC Normal [facility] Comment on above: Order Comment: Speci men Type: BLOOD SPECIMENOrdering Facility: [facility] Address: [address] [place] [address] Performed By: #### 5 7021-8 ####[facility] TAMIANCLATASHAA [id number] [place] [address] [place] Platelet mean volume (Bld) [Entitic vol] 8.3 fL Low 9.0-12.7 [facility] Comment on above: Order Comment: Speci men Type: BLOOD SPECIMENOrdering Facility: [facility] Address: [address] [place] [address] Performed By: #### 5 7021-8 ####[facility] CHILDRENNCPEPE [id number] [place] [address] [place] Platelets (Bld) [#/Vol] 85 10*3/uL Low 150-400 [facility] Comment on above: Order Comment: Speci men Type: BLOOD SPECIMENOrdering Facility: [facility] Address: [address] [place] [address] Result Comment: No c lot detected. Performed By: #### 5 7021-8 ####[facility] CHILDRENSTANA [id number] [place] [address] [place] RBC (Bld) [#/Vol] 3.33 10*6/uL Low 4.20-6.00 [facility] Comment on above: Order Comment: Speci men Type: BLOOD SPECIMENOrdering Facility: [facility] Address: [address] [place] [address] Performed By: #### 5 7021-8 ####[facility]DRENNCLIA [id number] [place] [address] [place] WBC (Bld) [#/Vol] 3.12 10*3/uL Low 3.70-11.00 [facility] Comment on above: Order Comment: Speci men Type: BLOOD SPECIMENOrdering Facility: [facility] Address: [address] [place] [address] Performed By: #### 5 7021-8 ####[facility] [id number] [place] [address] [place] Ferritin SerPl-ncon 2024 Ferritin [Mass/Vol] 1789.0 ng/mL High 30.3-565.7 [facility] Comment on above: Order Comment: Speci men Type: BLOOD SPECIMENOrdering Facility: [facility] Address: [address] [place] [address] Performed By: #### 2 276-4, 15537-4 ####[facility] LABIA [id number] [place] [address] [place] Iron and Iron binding capaci panel 08-11-2024 Iron [Mass/Vol] 59 ug/dL Normal 41-186 [facility] Comment on above: Order Comment: Speci men Type: BLOOD SPECIMENOrdering Facility: [facility] Address: [address] [place] [address] Performed By: #### 2 276-4, 62210-7 ####[facility] LABIA [id number] [address] [place] Iron binding capacity [Mass/Vol] 229 ug/dL Low 232-386 [facility] Comment on above: Order Comment: Speci men Type: BLOOD SPECIMENOrdering Facility: [facility] Address: [address] [place] [address] Performed By: #### 2 276-4, 17031-4 ####[facility] LABIA [id number] [place] [address] [place] Iron/TIBC [Molar ratio] 25.8 % Normal 15.0-57.0 [facility] Comment on above: Order Comment: Speci men Type: BLOOD SPECIMENOrdering Facility: [facility] Address: [address] [place] [address] Performed By: #### 2 276-4, 61278-8 ####[facility] LABCLIA [id number] [facility] [id number] [place] [address] [place] PSA,Total - Annual Screenon 07-22-2024 PSA,TOT SCREEN 0.02 ng/mL Normal 0.02-4.00 [facility] Comment on above: Result Comment: This test was performed using the [employer] tPSA method. Measured values of a patient??sample can vary depending on the testing procedure used. PSA values determined on patient samples by different testing procedures cannot be used interchangeably. If there is a change in PSA assays while monitoring therapy, sequential testing should be performed to confirm baseline values. Performed By: #### L 501.9910 #### [facility] [address] [place], [place], [address] CBC W Auto Differential pane l (Bld)on 07-21-2024 Basophils (Bld) [#/Vol] 10*3/uL Normal <0.11 [facility] Comment on above: Order Comment: Speci men Type: BLOOD SPECIMENOrdering Facility: [facility] Address: [address] [place] [address] Performed By: #### 5 7021-8 ####[facility]DRENNCLIA [id number] [place] [address] [place] Basophils/100 WBC (Bld) 0.8 % Normal [facility] Comment on above: Order Comment: Speci men Type: BLOOD SPECIMENOrdering Facility: [facility] Address: [address] [place] [address] Performed By: #### 5 7021-8 ####[facility] CENTERLIA [id number] [place] [address] [place] Differential cell count method Nom (Bld) Auto Normal [facility] Comment on above: Order Comment: Speci men Type: BLOOD SPECIMENOrdering Facility: [facility] Address: [address] [place] [address] Performed By: #### 5 7021-8 ####[facility] MILLWNCLIA [id number] [place] [address] [place] Eosinophils (Bld) [#/Vol] 10*3/uL Normal <0.46 [facility] Comment on above: Order Comment: Speci men Type: BLOOD SPECIMENOrdering Facility: [facility] Address: [address] [place] [address] Performed By: #### 5 7021-8 ####[facility] CENTERLIA [id number] [place] [address] [place] Eosinophils/100 WBC (Bld) 0.4 % Normal [facility] Comment on above: Order Comment: Speci men Type: BLOOD SPECIMENOrdering Facility: [facility] Address: [address] [place] [address] Performed By: #### 5 7021-8 ####[facility] CENTERLIA [id number] [place] [address] [place] Erythrocyte distribution width (RBC) [Ratio] 13.2 % Normal 11.5-15.0 [facility] Comment on above: Order Comment: Speci men Type: BLOOD SPECIMENOrdering Facility: [facility] Address: [address] [place] [address] Performed By: #### 5 7021-8 ####[facility] CENTERLIA [id number] [address] [place] Hematocrit (Bld) [Volume fraction] 35.4 % Low 39.0-51.0 [facility] Comment on above: Order Comment: Speci men Type: BLOOD SPECIMENOrdering Facility: [facility] Address: [address] [place] [address] Performed By: #### 5 7021-8 ####[facility] CENTERLIA [id number] [place] [address] [place] Hemoglobin (Bld) [Mass/Vol] 11.8 g/dL Low 13.0-17.0 [facility] Comment on above: Order Comment: Speci men Type: BLOOD SPECIMENOrdering Facility: [facility] Address: [address] [place] [address] Performed By: #### 5 7021-8 ####[facility] MIAMIA [id number] [place] [address] [place] Immature granulocytes (Bld) [#/Vol] 10*3/uL Normal <0.10 [facility] Comment on above: Order Comment: Speci men Type: BLOOD SPECIMENOrdering Facility: [facility] Address: [address] [place] [address] Performed By: #### 5 7021-8 ####[facility] [id number] [address] [place] Immature granulocytes/100 WBC (Bld) 0.8 % Normal [facility] Comment on above: Order Comment: Speci men Type: BLOOD SPECIMENOrdering Facility: [facility] Address: [address] [place] [address] Performed By: #### 5 7021-8 ####[facility] [id number] [place] [address] [place] Lymphocytes (Bld) [#/Vol] 0.54 10*3/uL Low 1.00-4.00 [facility] Comment on above: Order Comment: Speci men Type: BLOOD SPECIMENOrdering Facility: [facility] Address: [address] [place] [address] Performed By: #### 5 7021-8 ####[facility] [id number] [place] [address] [place] Lymphocytes/100 WBC (Bld) 20.4 % Normal [facility] Comment on above: Order Comment: Speci men Type: BLOOD SPECIMENOrdering Facility: [facility] Address: [address] [place] [address] Performed By: #### 5 7021-8 ####[facility] SOWMYACLIOMANUEL [id number] [place] [address] [place] MCH (RBC) [Entitic mass] 31.8 pg Normal 26.0-34.0 [facility] Comment on above: Order Comment: Speci men Type: BLOOD SPECIMENOrdering Facility: [facility] Address: [address] [place] [address] Performed By: #### 5 7021-8 ####[facility] [id number] [place] [address] [place] MCHC (RBC) [Mass/Vol] 33.3 g/dL Normal 30.5-36.0 [facility] Comment on above: Order Comment: Speci men Type: BLOOD SPECIMENOrdering Facility: [facility] Address: [address] [place] [address] Performed By: #### 5 7021-8 ####[facility] [id number] [place] [address] [place] MCV (RBC) [Entitic vol] 95.4 fL Normal 80.0-100.0 [facility] Comment on above: Order Comment: Speci men Type: BLOOD SPECIMENOrdering Facility: [facility] Address: [address] [place] [address] Performed By: #### 5 7021-8 ####[facility] [id number] [place] [address] [place] Monocytes (Bld) [#/Vol] 0.19 10*3/uL Normal <0.87 [facility] Comment on above: Order Comment: Speci men Type: BLOOD SPECIMENOrdering Facility: [facility] Address: [address] [place] [address] Performed By: #### 5 7021-8 ####[facility] MILLWNCLIA [id number] [place] [address] [place] Monocytes/100 WBC (Bld) 7.2 % Normal [facility] Comment on above: Order Comment: Speci men Type: BLOOD SPECIMENOrdering Facility: [facility] Address: [address] [place] [address] Performed By: #### 5 7021-8 ####[facility] [id number] [place] [address] [place] Neutrophils (Bld) [#/Vol] 1.87 10*3/uL Normal 1.45-7.50 [facility] Comment on above: Order Comment: Speci men Type: BLOOD SPECIMENOrdering Facility: [facility] Address: [address] [place] [address] Performed By: #### 5 7021-8 ####[facility] MIAMIA [id number] [place] [address] [place] Neutrophils/100 WBC (Bld) 70.4 % Normal [facility] Comment on above: Order Comment: Speci men Type: BLOOD SPECIMENOrdering Facility: [facility] Address: [address] [place] [address] Performed By: #### 5 7021-8 ####[facility] CENTERLIA [id number] [place] [address] [place] Nucleated RBC (Bld) [#/Vol] 10*3/uL Normal <0.01 [facility] Comment on above: Order Comment: Speci men Type: BLOOD SPECIMENOrdering Facility: [facility] Address: [address] [place] [address] Performed By: #### 5 7021-8 ####[facility] [id number] [place] [address] [place] Nucleated RBC/100 WBC (Bld) [Ratio] 0.0 /100 WBC Normal [facility] Comment on above: Order Comment: Speci men Type: BLOOD SPECIMENOrdering Facility: [facility] Address: [address] [place] [address] Performed By: #### 5 7021-8 ####[facility] [id number] [place] [address] [place] Platelet mean volume (Bld) [Entitic vol] 8.7 fL Low 9.0-12.7 [facility] Comment on above: Order Comment: Speci men Type: BLOOD SPECIMENOrdering Facility: [facility] Address: [address] [place] [address] Performed By: #### 5 7021-8 ####[facility] [id number] [place] [address] [place] Platelets (Bld) [#/Vol] 105 10*3/uL Low 150-400 [facility] Comment on above: Order Comment: Speci men Type: BLOOD SPECIMENOrdering Facility: [facility] Address: [address] [place] [address] Performed By: #### 5 7021-8 ####[facility] [id number] [place] [address] [place] RBC (Bld) [#/Vol] 3.71 10*6/uL Low 4.20-6.00 [facility] Comment on above: Order Comment: Speci men Type: BLOOD SPECIMENOrdering Facility: [facility] Address: [address] [place] [address] Performed By: #### 5 7021-8 ####[facility] [id number] [place] [address] [place] WBC (Bld) [#/Vol] 2.65 10*3/uL Low 3.70-11.00 [facility] Comment on above: Order Comment: Speci men Type: BLOOD SPECIMENOrdering Facility: [facility] Address: [address] [place] [address] Performed By: #### 5 7021-8 ####[facility] DIAZ SOWMYATOWNCLIA [id number] [place] [address] [place] Ferritin [facility]Pl[facility] 2024 Ferritin [Mass/Vol] 1920.0 ng/mL High 30.3-565.7 [facility] Comment on above: Order Comment: Speci men Type: BLOOD SPECIMENOrdering Facility: [facility] Address: [address] [place] [address] Performed By: #### 5 0190-8, 2276-4 ####[facility] LABCLIA [id number] [place] [address] [place] Iron and Iron binding capaci ty panel 07-21-2024 Iron [Mass/Vol] 61 ug/dL Normal 41-186 [facility] Comment on above: Order Comment: Speci men Type: BLOOD SPECIMENOrdering Facility: [facility] Address: [address] [place] [address] Performed By: #### 5 0190-8, 6-4 ####[facility] LABCLIA [id number] [place] [address] [place] Iron binding capacity [Mass/Vol] 220 ug/dL Low 232-386 [facility] Comment on above: Order Comment: Speci men Type: BLOOD SPECIMENOrdering Facility: [facility] Address: [address] [place] [address] Performed By: #### 5 0190-8, 6-4 ####[facility] LABCLIA [id number] [place] [address] [place] Iron/TIBC [Molar ratio] 27.7 % Normal 15.0-57.0 [facility] Comment on above: Order Comment: Speci men Type: BLOOD SPECIMENOrdering Facility: [facility] Address: [address] [place] [address] [place] [address] Performed By: #### 5 0190-8, 2276-4 ####[facility] LABCLIA [id number] [place] [address] [place] Non-Carbon Dioxide Operator Cytology Reporton Non-Carbon Dioxide Operator Cytology Report . Pathology Reports Accession: Collected Date/Time: Received Date/Time: Pathologist: [id number] 07/14/2024 11:33 EDT 07/14/2024 14:02 EDT DICKSON ROBISON MD Non-Carbon Dioxide Operator Cytology Report CLINICAL INFORMATION: Neck mass DIAGNOSTIC CATEGORY: NON-NEOPLASTIC. Acellular specimen with numerous crystalline-like structures present. SPECIMEN: Left parotid FNA GROSS DESCRIPTION: # of Blocks: 1 # of Monolayers: 1 Volume (ml) .5 Color: fresh cloudy beige SUGGESTION/EDUCATIONAL NOTES: This specimen was evaluated using criteria described in The [employer] System for Reporting Salivary Gland Cytopathology, 2018. This is an evidence-based system derived from the literature which correlates diagnostic categories with ROM and clinical management strategies. Diagnostic Category Risk of malignancy Management (ROM) I . Non-Diagnostic 25% Clinical/radiologic correlation, repeat FNA II. Non-Neoplastic 10% Clinical follow up, radiologic correlation III. Atypia of 20% Repeat FNA or surgery Undetermined Significance (AUS) Joanne . Neoplasm: Benign < 5% Follow or conservative surgery IVb: Salivary gland 35% Conservative surgery Neoplasm Uncertain malignant potential SUMP V . Suspicious 60% Surgery, decide if low grade or High grade and manage accordingly : Malignant (low vs 90% Same as above High grade) Verified by Pathology Report verified by [facility] Screened by: DAMION SHRESTHA Electronically signed by DICKSON ROBISON Sign-Out Date: 07/15/2024 11:36 Performing Lab: [facility], [address] [place] [address] Pathology Dept Disclaimer If ancillary studies were utilized, the following Laboratory Developed Test (LDT) disclaimer will apply: Pathology Reports Accession: Collected Date/Time: Received Date/Time: Pathologist: [id number] 07/14/2024 11:33 EDT 07/14/2024 14:02 EDT DICKSON ROBISON MD Disclaimer Under CLIA requirements, [facility] Pathology Laboratory is qualified to perform high complexity testing. For all ancillary stains, positive and negative controls stain appropriately. Performance characteristics of immunohistochemical and chromogenic in-situ hybridization tests have been determined by [facility] Pathology Laboratory. These tests are used for clinical purposes, They should not be regarded as investigational or for research. Normal [facility] No Panel Informationon 07-14 Culture Body Fluid Culture has been rec eived in lab and is no growth to date. Routine cultures are held for 5 days. [facility] Work Phone: GS Unsedimented Rare Polymorphonuclear cells No organisms seen. [facility] Work Phone: Urgent Care Visit Reporton 0 07-14-2024 Urgent Care Visit Report [facility] [address], [address] [place] [id number] OFFICE VISIT Date of Service: 07/14/24 MR#: [id number] Acct: [id number] Name: CHANCE MUNOZ Rep #: [id number] : 1945 Provider: WILLIAN Ness Age/Sex: 78/M Location: [facility] Status: Signed Intake Vital Signs 06/17/24 08:51 07/14/24 14:01 Height 5 ft 10.5 in Weight: 158 lb BMI 22.3 BP 109/67 104/68 Blood Pressure Location Rt brachial Lt brachial Position Sitting Sitting Respiration 14 16 Pulse 96 80 Pulse Source Monitor NIBP Temp 97.7 F L 98.1 F Temp Source Oral Pulse Oximetry (%) 97 95 Oxygen Delivery Method room air room air Intake Visit Reasons: L CLOGGED EAR Chief Complaint: left ear plugged Mri Technician Required: No Is patient in pain?: No Allergies cefaclor (From Ceclor) Allergy (Verified 07/14/24 14:02) Unknown contact metal agent Allergy (Verified 07/14/24 14:02) Rash nortriptyline Allergy (Verified 07/14/24 14:02) Unknown Penicillins Allergy (Verified 07/14/24 14:02) blisters on feet alfuzosin (From Uroxatral) Adverse Reaction (Verified 07/14/24 14:02) Unknown esomeprazole (From Nexium) Adverse Reaction (Verified 07/14/24 14:02) Itching lansoprazole (From Prevacid) Adverse Reaction (Verified 07/14/24 14:02) Upset Stomach Have you fallen in the past year?: No Nurse's Note: left ear plugged x 5 days. denies pain, fever, drainage. 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) MDS (myelodysplastic syndrome) Acute pharyngitis, unspecified Acute sinusitis, unspecified Impacted cerumen of both ears Acute bronchitis, unspecified Contact with and (suspected) exposure to other viral communicable diseases URI (upper respiratory infection) Right upper lobe pulmonary infiltrate Esophagitis Abdominal pain Hypothyroidism Wears dentures Anxiety Thyroid disease Arthritis Injury of back Loss of consciousness History of diverticulitis History of IBS History of hiatal hernia Non-smoker Seasonal allergies Leg cramps History of edema Cardiology follow-up encounter Personal history of colonic polyps Vertigo Concussion Chronic anemia Lipoma Skin lesion Fibromyalgia GERD (gastroesophageal reflux disease) Premature ventricular contractions Bradycardia Surgical History History of bilateral cataract extraction Hx of colonoscopy History of esophagogastroduodenoscop y (EGD) Hx of colonoscopy History of prostate surgery History of testicular mass excision History of tonsillectomy and adenoidectomy History of cholecystectomy Family History (Reviewed 06/17/24 @ 13:58 by Dianne Donnelly BURN OUT SCARFING OPERATOR, BURN OUT SCARFING OPERATOR-C) Father Diabetes Afib pacemaker Mother Heart disease Hx CHF Hypertension Social History household members: spouse housing: house Smoking Status: Never smoker alcohol intake: never substance use type: does not use caffeine: Yes Type: carbonated beverages what type of physical activity do you participate in: none seatbelt use: always do you feel safe at home: Yes HPI HPI Chief Complaint: left ear plugged Details: CHANCE MUNOZ, is a 78 M who presents to the office today for assessment of cerumen impaction in both ears (L>R); appreciates muffled hearing in both ears (L>R) and admits to frequent Q-tip use. Nonsmoker. No other associated symptoms and no other +/- factors. ROS Const Constitutional: No other (as above) Exam Const General: cooperative, healthy appearing and no acute distress Nutritional Appearance: average body habitus Orientation: alert, awake and oriented x3 HENMT Head: normal to inspection Ears: hearing grossly normal bilaterally, external ears normal, TM's normal bilaterally (after cerumen impaction removal AU), and EAC's normal Nose: external nose normal, nares normal Face and sinus: normal facial exam, and face symmetric Neck Neck: normal visual inspection, no lymphadenopathy, no meningeal signs and supple Neck mass: No Chest Chest palpation inspection: normal inspection of the chest Resp Effort Inspection: normal respiratory effort, able to speak in complete sentences Cardio Rate: regular rate Pulses: radial pulses present Skin General: no rashes or lesions noted Neuro General: patient alert, patient awake Cognition: normal cognition Speech: speech normal Extrem General: normal to inspection Psych Appearance: grossly normal Mental Status: mental status grossly normal Mood: congruent mood Affect: normal affect Speech and Movement: speech and movement normal Attitude: cooperative Office Procedures Cerumen Removal Procedure BMS (more content not included)... Normal [facility] CBC W Auto Differential pane l (Bld)on 06-29-2024 Basophils (Bld) [#/Vol] 10*3/uL Normal <0.11 [facility] Comment on above: Order Comment: Speci men Type: BLOOD SPECIMENOrdering Facility: [facility] Address: [address] [place] [address] Performed By: #### 5 7021-8 ####[facility] [id number] [place] [address] [place] Basophils/100 WBC (Bld) 0.3 % Normal [facility] Comment on above: Order Comment: Speci men Type: BLOOD SPECIMENOrdering Facility: [facility] Address: [address] [place] [address] Performed By: #### 5 7021-8 ####[facility] [id number] [place] [address] [place] Differential cell count method Nom (Bld) Auto Normal [facility] Comment on above: Order Comment: Speci men Type: BLOOD SPECIMENOrdering Facility: [facility] Address: [address] [place] [address] Performed By: #### 5 7021-8 ####[facility] [id number] [place] [address] [place] Eosinophils (Bld) [#/Vol] 10*3/uL Normal <0.46 [facility] Comment on above: Order Comment: Speci men Type: BLOOD SPECIMENOrdering Facility: [facility] Address: [address] [place] [address] Performed By: #### 5 7021-8 ####[facility] [id number] [place] [address] [place] Eosinophils/100 WBC (Bld) 0.6 % Normal [facility] Comment on above: Order Comment: Speci men Type: BLOOD SPECIMENOrdering Facility: [facility] Address: [address] [place] [address] Performed By: #### 5 7021-8 ####[facility] [id number] [place] [address] [place] Erythrocyte distribution width (RBC) [Ratio] 13.3 % Normal 11.5-15.0 [facility] Comment on above: Order Comment: Speci men Type: BLOOD SPECIMENOrdering Facility: [facility] Address: [address] [place] [address] Performed By: #### 5 7021-8 ####[facility] [id number] [place] [address] [place] Hematocrit (Bld) [Volume fraction] 32.3 % Low 39.0-51.0 [facility] Comment on above: Order Comment: Speci men Type: BLOOD SPECIMENOrdering Facility: [facility] Address: [address] [place] [address] Performed By: #### 5 7021-8 ####[facility] SOWMYACLIOMANUEL [id number] [place] [address] [place] Hemoglobin (Bld) [Mass/Vol] 10.9 g/dL Low 13.0-17.0 [facility] Comment on above: Order Comment: Speci men Type: BLOOD SPECIMENOrdering Facility: [facility] Address: [address] [place] [address] Performed By: #### 5 7021-8 ####[facility] [id number] [place] [address] [place] Immature granulocytes (Bld) [#/Vol] 0.04 10*3/uL Normal <0.10 [facility] Comment on above: Order Comment: Speci men Type: BLOOD SPECIMENOrdering Facility: [facility] Address: [address] [place] [address] Performed By: #### 5 7021-8 ####[facility] [id number] [place] [address] [place] Immature granulocytes/100 WBC (Bld) 1.2 % Normal [facility] Comment on above: Order Comment: Speci men Type: BLOOD SPECIMENOrdering Facility: [facility] Address: [address] [place] [address] Performed By: #### 5 7021-8 ####[facility] [id number] [place] [address] [place] Lymphocytes (Bld) [#/Vol] 0.63 10*3/uL Low 1.00-4.00 [facility] Comment on above: Order Comment: Speci men Type: BLOOD SPECIMENOrdering Facility: [facility] Address: [address] [place] [address] Performed By: #### 5 7021-8 ####[facility] SOWMYACLIOMANUEL [id number] [place] [address] [place] Lymphocytes/100 WBC (Bld) 18.6 % Normal [facility] Comment on above: Order Comment: Speci men Type: BLOOD SPECIMENOrdering Facility: [facility] Address: [address] [place] [address] Performed By: #### 5 7021-8 ####[facility] [id number] [place] [address] [place] MCH (RBC) [Entitic mass] 32.2 pg Normal 26.0-34.0 [facility] Comment on above: Order Comment: Speci men Type: BLOOD SPECIMENOrdering Facility: [facility] Address: [address] [place] [address] Performed By: #### 5 7021-8 ####[facility] [id number] [place] [address] [place] MCHC (RBC) [Mass/Vol] 33.7 g/dL Normal 30.5-36.0 [facility] Comment on above: Order Comment: Speci men Type: BLOOD SPECIMENOrdering Facility: [facility] Address: [address] [place] [address] Performed By: #### 5 7021-8 ####[facility] [id number] [place] [address] [place] MCV (RBC) [Entitic vol] 95.6 fL Normal 80.0-100.0 [facility] Comment on above: Order Comment: Speci men Type: BLOOD SPECIMENOrdering Facility: [facility] Address: [address] [place] [address] Performed By: #### 5 7021-8 ####[facility] [id number] [place] [address] [place] Monocytes (Bld) [#/Vol] 0.21 10*3/uL Normal <0.87 [facility] Comment on above: Order Comment: Speci men Type: BLOOD SPECIMENOrdering Facility: [facility] Address: [address] [place] [address] Performed By: #### 5 7021-8 ####[facility] MIAMIA [id number] [place] [address] [place] Monocytes/100 WBC (Bld) 6.2 % Normal [facility] Comment on above: Order Comment: Speci men Type: BLOOD SPECIMENOrdering Facility: [facility] Address: [address] [place] [address] Performed By: #### 5 7021-8 ####[facility] [id number] [place] [address] [place] Neutrophils (Bld) [#/Vol] 2.47 10*3/uL Normal 1.45-7.50 [facility] Comment on above: Order Comment: Speci men Type: BLOOD SPECIMENOrdering Facility: [facility] Address: [address] [place] [address] Performed By: #### 5 7021-8 ####[facility] [id number] [place] [address] [place] Neutrophils/100 WBC (Bld) 73.1 % Normal [facility] Comment on above: Order Comment: Speci men Type: BLOOD SPECIMENOrdering Facility: [facility] Address: [address] [place] [address] Performed By: #### 5 7021-8 ####[facility] [id number] [place] [address] [place] Nucleated RBC (Bld) [#/Vol] 0.03 10*3/uL High <0.01 [facility] Comment on above: Order Comment: Speci men Type: BLOOD SPECIMENOrdering Facility: [facility] Address: [address] [place] [address] Performed By: #### 5 7021-8 ####[facility] LUCY [id number] [place] [address] [place] Nucleated RBC/100 WBC (Bld) [Ratio] 0.9 /100 WBC Normal [facility] Comment on above: Order Comment: Speci men Type: BLOOD SPECIMENOrdering Facility: [facility] Address: [address] [place] [address] Performed By: #### 5 7021-8 ####[facility] [id number] [place] [address] [place] Platelet mean volume (Bld) [Entitic vol] 8.3 fL Low 9.0-12.7 [facility] Comment on above: Order Comment: Speci men Type: BLOOD SPECIMENOrdering Facility: [facility] Address: [address] [place] [address] Performed By: #### 5 7021-8 ####[facility] [id number] [place] [address] [place] Platelets (Bld) [#/Vol] 121 10*3/uL Low 150-400 [facility] Comment on above: Order Comment: Speci men Type: BLOOD SPECIMENOrdering Facility: [facility] Address: [address] [place] [address] Performed By: #### 5 7021-8 ####[facility]ENTERLIA [id number] [place] [address] [place] RBC (Bld) [#/Vol] 3.38 10*6/uL Low 4.20-6.00 [facility] Comment on above: Order Comment: Speci men Type: BLOOD SPECIMENOrdering Facility: [facility] Address: [address] [place] [address] Performed By: #### 5 7021-8 ####[facility] MILLWNCLIA [id number] [place] [address] [place] WBC (Bld) [#/Vol] 3.38 10*3/uL Low 3.70-11.00 [facility] Comment on above: Order Comment: Speci men Type: BLOOD SPECIMENOrdering Facility: [facility] Address: [address] [place] [address] Performed By: #### 5 7021-8 ####[facility] [id number] [place] [address] [place] CNOVSPon 06-29-2024 CNOVSP Normal [facility] Ferritin SerPl-mCncon 2024 Ferritin [Mass/Vol] 1621.0 ng/mL High 30.3-565.7 [facility] Comment on above: Order Comment: Speci men Type: BLOOD SPECIMENOrdering Facility: [facility] Address: [address] [place] [address] Performed By: #### 2 276-4, 37318-9 ####[facility] LABIA [id number] [place] [address] [place] Iron and Iron binding capaci ty panelon 06-29-2024 Iron [Mass/Vol] 58 ug/dL Normal 41-186 [facility] Comment on above: Order Comment: Speci men Type: BLOOD SPECIMENOrdering Facility: [facility] Address: [address] [place] [address] Performed By: #### 2 276-4, 53762-4 ####[facility] [id number] [place] [address] [place] Iron binding capacity [Mass/Vol] 241 ug/dL Normal 232-386 [facility] Comment on above: Order Comment: Speci men Type: BLOOD SPECIMENOrdering Facility: [facility] Address: [address] [place] [address] Performed By: #### 2 276-4, 42917-3 ####[facility] LABCLIA [id number] [address] [address] [place] Iron/TIBC [Molar ratio] 24.1 % Normal 15.0-57.0 [facility] Comment on above: Order Comment: Speci men Type: BLOOD SPECIMENOrdering Facility: [facility] Address: [address] [place] [address] Performed By: #### 2 276-4, 47626-6 ####[facility] LABCLIA [id number] [address] [address] [place] Pulmonary Visit Reporton Pulmonary Visit Report [facility] [place] [address] [facility] [place] [address] OFFICE VISIT Date of Service: 06/17/24 MR#: [id number] Acct: [id number] Name: CHANCE MUNOZ Rep #: [id number] : 1945 Provider: JIMI Donnelly Age/Sex: 78/M Location: [facility] Status: Signed Assessment and Plan Assessment and Plan (1) Bronchiectasis: Status: Chronic Qualifiers: Bronchiectasis type: uncomplicated Qualified Code(s): J47.9 - Bronchiectasis, uncomplicated Comment: CT 02/20/22 Plan: No signs of exacerbation of bronchiectasis today. He is not currently requiring maintenance medications. No additional testing at this time. Contact the office with any signs of new or worsening symptoms. Follow-up as needed. Plan Details Additional Comments: This note was generated with [employer] dictation software. It may contain incorrect words, spelling, and punctuation that were not noted in checking the note before signing. HPI 6 M FU Chief Complaint: Routine follow-up HPI Comments Details: This patient presents to the office today for follow-up of his bronchiectasis. He is ambulatory and currently on room air. He has not recently been seen in the ED or urgent care for any respiratory illness. He has not required any antibiotics or prednisone for any breathing problems. He is a lifelong never smoker. He is no longer utilizing Symbicort. He reports that the medication is too expensive. He has not recently required the use of albuterol. He denies any difficulty with shortness of breath. He has an occasional dry cough. He denies any sputum production or hemoptysis. He denies any wheezing, chest tightness, chest pain or palpitations. He has not had any fever, chills or body aches. He is not currently utilizing his Acapella. He states "I do not need it". Intake Vital Signs 10/13/23 09:02 11/25/23 14:46 12/18/23 09:31 06/17/24 08:51 Height 5 ft 10.5 in 5 ft 10.5 in 5 ft 10.5 in 5 ft 10.5 in Weight: 158 lb BMI 22.3 BP 109/67 Blood Pressure Location Rt brachial Position Sitting Respiration 14 Pulse 96 Pulse Source Monitor Temp 97.7 F L Temperature Source Temporal Artery Pulse Oximetry (%) 97 Oxygen Delivery Method room air Intake Visit Reasons: 6 M FU Mri Technician Required: No DME Vendor: None Accompanied by: Self Allergies cefaclor (From Ceclor) Allergy (Verified 06/17/24 13:38) Unknown contact metal agent Allergy (Verified 06/17/24 13:38) Rash nortriptyline Allergy (Verified 06/17/24 13:38) Unknown Penicillins Allergy (Verified 06/17/24 13:38) blisters on feet alfuzosin (From Uroxatral) Adverse Reaction (Verified 06/17/24 13:38) Unknown esomeprazole (From Nexium) Adverse Reaction (Verified 06/17/24 13:38) Itching lansoprazole (From Prevacid) Adverse Reaction (Verified 06/17/24 13:38) Upset Stomach Medications ???Medication ???Instructions ???Recorded ???Confirmed ???Type finasteride 5 mg tablet 5 mg PO DAILY 01/09/21 06/17/24 Hi story paroxetine HCl 40 mg tablet 40 mg PO DAILY 01/09/21 06/17/24 H istory Acapella #1 ea 02/21/22 10/13/23 Rx spacer #1 ea 08/29/22 10/13/23 Rx tamsulosin 0.4 mg capsule 0.4 mg PO QHS 04/08/23 06/17/24 Hi story levothyroxine 100 mcg tablet 100 mcg PO QDAY 07/29/23 06/17/24 History fluticasone propionate 50 1 spray intranasal QDAY 10/13/23 0 06/17/24 History mcg/actuation nasal spray,suspension tralokinumab-ldrm 150 mg/mL 300 mg subcut Q2W 10/13/23 5 History subcutaneous syringe (Adbry) albuterol sulfate 90 mcg/actuation 2 inh inhalation Q6H PRN SOB #8. 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) MDS (myelodysplastic syndrome) Acute pharyngitis, unspecified Acute sinusitis, unspecified Impacted cerumen of both ears Acute bronchitis, unspecified Contact with and (suspected) exposure to other viral communicable diseases URI (upper respiratory infection) Right upper lobe pulmonary infiltrate Esophagitis Abdominal pain Hypothyroidism Wears dentures Anxiety Thyroid disease Arthritis Injury of back Loss of consciousness History of diverticulitis History of IBS History of hiatal hernia Non-smoker Seasonal allergies Leg cramps History of edema Cardiology follow-up encounter Personal history of colonic polyps Vertigo Concussion Chronic anemia Latasha (more content not included)... Normal [facility] Echo Completeon 06-15-2024 Echo [facility] [address] [place] [address] Echo Complete 06/15/24 1341 MR#: [id number] Acct: [id number] Name: CHANCE MUNOZ Rep #: [id number] : 1945 78 From: Vishal Monte MD Attending Dr: Dr. Vishal Monte MD Status: REG Sergio SCHULZ Ordering Dr: Vishal Monte MD Date: 06/15/24 Location: [facility] Sex: M C Admitted: Reason For Study Reason For Study: ARRHYTHMIA Procedure This was a 2D Doppler, Color Flow transthoracic echocardiogram. Exam performed in department. Left Ventricle Normal LV size. Left ventricular systolic function is normal. The left ventricular ejection fraction is 60 %. Stage 1 diastolic dysfunction. No regional wall motion abnormalities noted. Right Ventricle Normal RV size. Normal systolic function. Atria Normal left atrium. Normal right atrium. Mitral Valve Normal mitral valve. Tricuspid Valve Normal tricuspid valve. Aortic Valve Trisinus/trileaflet aortic valve. Moderate focal aortic valve thickening. Peak aortic valve gradient 30 mmHg. Mean aortic valve gradient 16 mmHg. Mild aortic stenosis. Pulmonic Valve Normal pulmonic valve. Great Vessels Normal aortic root. The pulmonary artery is normal size. Inferior vena cava collapse with respiration. Pericardium/Pleural No pericardial effusion. MMode/2D Measurements Calculations LVIDd: 4.5 cm IVSd: 1.1 cm LVOT diam: 2.1 cm LVIDs: 3.0 cm LVPWd: 1.1 cm LVOT area: 3.5 cm2 RVDd: 3.9 cm FS: 32.1 % Ao root diam: 3.3 cm LAV(MOD-bp): 58.0 ml LVAd ap4: 35.7 cm2 LAV(MOD-bp) Indexed: 31.4 ml/m2 LVLd ap4: 8.8 cm LAV(MOD-sp2): 52.3 ml EDV(MOD-sp4): 119.5 ml LAV(MOD-sp4): 53.3 ml EDV(sp4-el): 122.9 ml LVAs ap4: 20.1 cm2 LVLs ap4: 7.3 cm ESV(MOD-sp4): 46.2 ml ESV(sp4-el): 46.6 ml EF(MOD-sp4): 61.4 % EF(sp4-el): 62.1 % SV(MOD-sp4): 73.3 ml SV(sp4-el): 76.3 ml LA A4 area: 21.4 cm2 SI(MOD-sp4): 39.7 ml/m2 LA dimension(2D): 2.8 cm RA A4 area: 17.0 cm2 TAPSE: 2.3 cm Time Measurements MV dec time: 0.30 sec Doppler Measurements Calculations MV E max mello: 71.6 cm/sec Lat Peak E' Mello: 9.0 cm/sec Med Peak E' Mello: 6.8 cm/sec MV A max mello: 99.2 cm/sec E/E' lat: 8.0 E/E' med: 10.5 MV E/A: 0.72 Ao V2 max: 272.9 cm/sec LV V1 max: 124.3 cm/sec SV(LVOT): 101.5 ml Ao max P.8 mmHg LV V1 max P.2 mmHg Ao V2 mean: 187.3 cm/sec LV V1 mean P.8 mmHg Ao mean P.7 mmHg LV V1 mean: 92.3 cm/sec Ao V2 VTI: 56.6 cm LV V1 VTI: 29.2 cm AV (velocity ratio): 0.52 ORLIN(I,D): 1.8 cm2 ORLIN(V,D): 1.6 cm2 PA V2 max: 137.6 cm/sec TR max mello: 261.8 cm/sec TR max P.4 mmHg ECHO/Echo Complete Interpretation Summary Normal LV size. Left ventricular systolic function is normal. The left ventricular ejection fraction is 60 %. Moderate focal aortic valve thickening. Mean aortic valve gradient 16 mmHg. Mild aortic stenosis. Stage 1 diastolic dysfunction. ___ Ordering Physician: Vishal Monte Referring Physician: SHREYAS AMEZQUITA Performed By: Lacie German RDCS 06/15/24 1737 Date Vishal Monte MD CC: Dr. Vishal Monte MD; Dr. Shreyas Amezquita, Date Dictated: 06/15/24 1341 Date Transcribed: 06/15/24 1737 Organic Preparation Analyst: Signed Normal [facility] Calculated very low density lipoprotein (VLDL) cholesterol measurementOrdered By: Shreyas Amezquita on 06-14-2024 Calculated very low density lipoprotein (VLDL) cholesterol measurement 12 mg/dL 5-40 [facility] Hemoglobin A1con 06-14-2024 HbA1c (Bld) [Mass fraction] 7.4 % High <=5.6 [facility] Comment on above: Result Comment: Norm al < 5.7 % Prediabetic 5.7 - 6.4 % Diabetic >or= 6.5 % Please note range changes. Performed By: #### L 500.4100, L501.9520, L501.9985, L502.0250 #### [facility] [address] [place], [place], [address] Hemoglobin A1c percentageOrd ered By: Shreyas Amezquita on 06-14-2024 HbA1c (Bld) [Mass fraction] 7.4 % High <5.7 [facility] Comment on above: Normal < 5.7 % Predi abetic 5.7 - 6.4 % Diabetic >or= 6.5 % Please note range changes. LDL calc ser/plasOrdered By: Shreyas Amezquita on 06-14-2024 Cholesterol in LDL [Mass/Vol] 71 mg/dL [facility] Comment on above: Zgduntempq=385-590 m g/dL & Higher Vcfm=359 mg/dL or greater Lipid Profileon 06-14-2024 CHOL:HDL 2.18 Normal [facility] Comment on above: Performed By: #### L 500.4100, L501.9520, L501.9985, L502.0250 #### [facility] [address] [place], [place], [address] Cholesterol [Mass/Vol] 153 mg/dL Normal <=200 [facility] Comment on above: Result Comment: Chol esterol level, Desirable <200 mg/dL Borderline high cholesterol 200-239 mg/dL High cholesterol >=240 mg/dL Recommendations of the NCEP Adult Treatment Panel for the following risk-cutoff thresholds for the [place] population. Performed By: #### L 500.4100, L501.9520, L501.9985, L502.0250 #### [facility] [address] [place], [address] Cholesterol in HDL [Mass/Vol] 70 mg/dL Normal [facility] Comment on above: Result Comment: Jerica onal Cholesterol Education Program (NCEP) guidelines: <40 mg/dL: Low HDL-cholesterol (major risk factor for CHD) >= 60 mg/dL: High HDL-cholesterol (negative risk factor for CHD) HDL-cholesterol is affected by a number of factors, e.g. smoking, exercise, hormones, sex and age. Performed By: #### L 500.4100, L501.9520, L501.9985, L502.0250 #### [facility] [address] [place], [address] Cholesterol in LDL [Mass/Vol] 71 mg/dL Normal [facility] Comment on above: Result Comment: Bord swaldt=040-724 mg/dL Higher Zysk=045 mg/dL or greater Performed By: #### L 500.4100, L501.9520, L501.9985, L502.0250 #### [facility] [address] [place], [address] Cholesterol in VLDL [Mass/Vol] 12 mg/dL Normal 5-40 [facility] Comment on above: Performed By: #### L 500.4100, L501.9520, L501.9985, L502.0250 #### [facility] [address] [place], [address] Triglyceride [Mass/Vol] 58 mg/dL Normal [facility] Comment on above: Result Comment: The drugs N-Acetylcysteine and Metamizole may falsely depress this assay. Normal range: <150 mg/dL Borderline High: 150-199 mg/dL High: 200-499 mg/dL Very High: >500 mg/dL Performed By: #### L 500.4100, L501.9520, L501.9985, L502.0250 #### [facility] [address] [place], [address] Microalb:Creat Ratio,Random URon 06-14-2024 Creatinine [Mass/Vol] 103.00 mg/dL Normal 39.00- 259. 00 [facility] Comment on above: Performed By: #### L 500.4100, L501.9520, L501.9985, L502.0250 #### [facility] [address] [place], [address] MALB:CREAT UNABLE TO CALCULATE Normal [facility] Comment on above: Performed By: #### L 500.4100, L501.9520, L501.9985, L502.0250 #### [facility] [address] [place], [address] MICROALBUMIN,UR < 12.0 Normal NO RANGE EST. [facility] Comment on above: Performed By: #### L 500.4100, L501.9520, L501.9985, L502.0250 #### [facility] [address] [place], [address] Microalbumin/creat ratio urO rdered By: Shreyas Amezquita on 06-14-2024 Urine microalbumin/creatinine ratio measurement UNABLE TO CALCULATE mg/g CRE [facility] Random urine creatinine evette urement (mass/volume)Ordered By: Shreyas Amezquita on 06-14-2024 Creatinine Unsp time (U) [Mass/Vol] 103.00 mg/dL 39.00-259. 00 [facility] Screening total cholesterol/ high density lipoprotein (HDL) cholesterol ratioOrdered By: Shreyas Amezquita on 06-14-2024 Cholesterol.total/Bettye sterol in HDL [Mass ratio] 2.18 {ratio} [facility] Serum or plasma cholesterol in HDL measurement (mass/volume)Ordered By: Shreyas Amezquita on 06-14-2024 Cholesterol in HDL [Mass/Vol] 70 mg/dL >40 [facility] Comment on above: National Cholesterol Education Program (NCEP) guidelines:<40 mg/dL: Low HDL-cholesterol (major risk factor for CHD)>= 60 mg/dL: High HDL-cholesterol (negative risk factor for CHD)HDL-cholesterol is affected by a number of factors, e.g. smoking, exercise, hormones, sex and age. Serum or plasma cholesterol measurement (mass/volume)Ordered By: Shreyas Amezquita on 06-14-2024 Cholesterol [Mass/Vol] 153 mg/dL <201 [facility] Comment on above: Cholesterol level, D esirable <200 mg/dLBorderline high cholesterol 200-239 mg/dLHigh cholesterol >=240 mg/dLRecommendations of the NCEP Adult Treatment Panel for the following risk-cutoff thresholds for the [place] population. TSH DL <= 0.005 mIU/L QnOrde red By: Shreyas Amezquita on 06-14-2024 TSH Qn 3.360 uIU/mL 0.300-4.20 0 [facility] Thyroid Stim Hormone (TSH)on 06-14-2024 TSH 3.360 uIU/mL Normal 0.300-4.20 0 [facility] Comment on above: Performed By: #### L 500.4100, L501.9520, L501.9985, L502.0250 #### [facility] [address] [place], [address] Triglycerides measurementOrd ered By: Shreyas Amezquita on 06-14-2024 Triglyceride [Mass/Vol] 58 mg/dL <199 [facility] Comment on above: The drugs N-Acetylcy steine and Metamizole may falsely depress this assay. Normal range: <150 mg/dLBorderline High: 150-199 mg/dLHigh: 200-499 mg/dLVery High: >500 mg/dL Urine albumin measurement wi detection limit of 20 mg/L or less (mass/volume)Ordered By: Shreyas Amezquita on 06-14-2024 Albumin DL <= 20 mg/L (U) [Mass/Vol] < 12.0 mg/L NO RANGE EST. [facility] CBC W Auto Differential pane l (Bld)on 06-07-2024 Basophils (Bld) [#/Vol] 10*3/uL Normal <0.11 [facility] Comment on above: Order Comment: Speci men Type: BLOOD SPECIMENOrdering Facility: [facility] Address: [address] [place] [address] Performed By: #### 5 7021-8 ####[facility]ITALWNCLIA [id number] [place] [address] [place] Basophils/100 WBC (Bld) 0.3 % Normal [facility] Comment on above: Order Comment: Speci men Type: BLOOD SPECIMENOrdering Facility: [facility] Address: [address] [place] [address] Performed By: #### 5 7021-8 ####[facility] CENTERLIA [id number] [place] [address] [place] Differential cell count method Nom (Bld) Auto Normal [facility] Comment on above: Order Comment: Speci men Type: BLOOD SPECIMENOrdering Facility: [facility] Address: [address] [place] [address] Performed By: #### 5 7021-8 ####[facility] MIAMIA [id number] [place] [address] [place] Eosinophils (Bld) [#/Vol] 10*3/uL Normal <0.46 [facility] Comment on above: Order Comment: Speci men Type: BLOOD SPECIMENOrdering Facility: [facility] Address: [address] [place] [address] Performed By: #### 5 7021-8 ####[facility] CENTERLIA [id number] [place] [address] [place] Eosinophils/100 WBC (Bld) 0.7 % Normal [facility] Comment on above: Order Comment: Speci men Type: BLOOD SPECIMENOrdering Facility: [facility] Address: [address] [place] [address] Performed By: #### 5 7021-8 ####[facility]CL[facility] [id number] [place] [address] [place] Erythrocyte distribution width (RBC) [Ratio] 12.7 % Normal 11.5-15.0 [facility] Comment on above: Order Comment: Speci men Type: BLOOD SPECIMENOrdering Facility: [facility] Address: [address] [place] [address] Performed By: #### 5 7021-8 ####[facility] [id number] [place] [address] [place] Hematocrit (Bld) [Volume fraction] 31.2 % Low 39.0-51.0 [facility] Comment on above: Order Comment: Speci men Type: BLOOD SPECIMENOrdering Facility: [facility] Address: [address] [place] [address] Performed By: #### 5 7021-8 ####[facility] [id number] [place] [address] [place] Hemoglobin (Bld) [Mass/Vol] 10.7 g/dL Low 13.0-17.0 [facility] Comment on above: Order Comment: Speci men Type: BLOOD SPECIMENOrdering Facility: [facility] Address: [address] [place] [address] Performed By: #### 5 7021-8 ####[facility] [id number] [place] [address] [place] Immature granulocytes (Bld) [#/Vol] 0.03 10*3/uL Normal <0.10 [facility] Comment on above: Order Comment: Speci men Type: BLOOD SPECIMENOrdering Facility: [facility] Address: [address] [place] [address] Performed By: #### 5 7021-8 ####[facility] [id number] [place] [address] [place] Immature granulocytes/100 WBC (Bld) 1.0 % Normal [facility] Comment on above: Order Comment: Speci men Type: BLOOD SPECIMENOrdering Facility: [facility] Address: [address] [place] [address] Performed By: #### 5 7021-8 ####[facility] [id number] [place] [address] [place] Lymphocytes (Bld) [#/Vol] 0.81 10*3/uL Low 1.00-4.00 [facility] Comment on above: Order Comment: Speci men Type: BLOOD SPECIMENOrdering Facility: [facility] Address: [address] [place] [address] Performed By: #### 5 7021-8 ####[facility] [id number] [place] [address] [place] Lymphocytes/100 WBC (Bld) 26.7 % Normal [facility] Comment on above: Order Comment: Speci men Type: BLOOD SPECIMENOrdering Facility: [facility] Address: [address] [place] [address] Performed By: #### 5 7021-8 ####[facility] [id number] [place] [address] [place] MCH (RBC) [Entitic mass] 32.5 pg Normal 26.0-34.0 [facility] Comment on above: Order Comment: Speci men Type: BLOOD SPECIMENOrdering Facility: [facility] Address: [address] [place] [address] Performed By: #### 5 7021-8 ####[facility] [id number] [place] [address] [place] MCHC (RBC) [Mass/Vol] 34.3 g/dL Normal 30.5-36.0 [facility] Comment on above: Order Comment: Speci men Type: BLOOD SPECIMENOrdering Facility: [facility] Address: [address] [place] [address] Performed By: #### 5 7021-8 ####[facility] SOWMYAVALERIO [id number] [place] [address] [place] MCV (RBC) [Entitic vol] 94.8 fL Normal 80.0-100.0 [facility] Comment on above: Order Comment: Speci men Type: BLOOD SPECIMENOrdering Facility: [facility] Address: [address] [place], [place] [address] Performed By: #### 5 7021-8 ####[facility] [id number] [place] [address] [place] Monocytes (Bld) [#/Vol] 0.18 10*3/uL Normal <0.87 [facility] Comment on above: Order Comment: Speci men Type: BLOOD SPECIMENOrdering Facility: [facility] Address: [address] [place], [place] [address] Performed By: #### 5 7021-8 ####[facility] MIAMIA [id number] [place] [address] [place] Monocytes/100 WBC (Bld) 5.9 % Normal [facility] Comment on above: Order Comment: Speci men Type: BLOOD SPECIMENOrdering Facility: [facility] Address: [address] [place] [address] Performed By: #### 5 7021-8 ####[facility]CL[facility] [id number] [place] [address] [place] Neutrophils (Bld) [#/Vol] 1.98 10*3/uL Normal 1.45-7.50 [facility] Comment on above: Order Comment: Speci men Type: BLOOD SPECIMENOrdering Facility: [facility] Address: [address] [place] [address] Performed By: #### 5 7021-8 ####[facility]ITALWSTANLIA [id number] [place] [address] [place] Neutrophils/100 WBC (Bld) 65.4 % Normal [facility] Comment on above: Order Comment: Speci men Type: BLOOD SPECIMENOrdering Facility: [facility] Address: [address] [place] [address] Performed By: #### 5 7021-8 ####[facility]ENTERLIA [id number] [place] [address] [place] Nucleated RBC (Bld) [#/Vol] 0.03 10*3/uL High <0.01 [facility] Comment on above: Order Comment: Speci men Type: BLOOD SPECIMENOrdering Facility: [facility] Address: [address] [place] [address] Performed By: #### 5 7021-8 ####[facility] [id number] [place] [address] [place] Nucleated RBC/100 WBC (Bld) [Ratio] 1.0 /100 WBC Normal [facility] Comment on above: Order Comment: Speci men Type: BLOOD SPECIMENOrdering Facility: [facility] Address: [address] [place] [address] Performed By: #### 5 7021-8 ####[facility] MIAMIA [id number] [place] [address] [place] Platelet mean volume (Bld) [Entitic vol] 8.2 fL Low 9.0-12.7 [facility] Comment on above: Order Comment: Speci men Type: BLOOD SPECIMENOrdering Facility: [facility] Address: [address] [place] [address] Performed By: #### 5 7021-8 ####[facility]ENTERLI [id number] [place] [address] [place] Platelets (Bld) [#/Vol] 115 10*3/uL Low 150-400 [facility] Comment on above: Order Comment: Speci men Type: BLOOD SPECIMENOrdering Facility: [facility] Address: [address] [place] [address] Performed By: #### 5 7021-8 ####[facility]ENNCLATASHAA [id number] [place] [address] [place] RBC (Bld) [#/Vol] 3.29 10*6/uL Low 4.20-6.00 [facility] Comment on above: Order Comment: Speci men Type: BLOOD SPECIMENOrdering Facility: [facility] Address: [address] [place] [address] Performed By: #### 5 7021-8 ####[facility] MIAMIA [id number] [place] [address] [place] WBC (Bld) [#/Vol] 3.03 10*3/uL Low 3.70-11.00 [facility] Comment on above: Order Comment: Speci men Type: BLOOD SPECIMENOrdering Facility: [facility] Address: [address] [place] [address] Performed By: #### 5 7021-8 ####[facility]CL[facility] [id number] [place] [address] [place] Ferritin SerPl-mCncon 2024 Ferritin [Mass/Vol] 1654.0 ng/mL High 30.3-565.7 [facility] Comment on above: Order Comment: Speci men Type: BLOOD SPECIMENOrdering Facility: [facility] Address: [address] [place] [address] Performed By: #### 5 0190-8, 2276-4 ####[facility] LABCLIA [id number] [address] [place] Iron [employer] Iron binding capaci ty panelon 06-07-2024 Iron [Mass/Vol] 57 ug/dL Normal 41-186 [facility] Comment on above: Order Comment: Speci men Type: BLOOD SPECIMENOrdering Facility: [facility] Address: [address] [place] [address] Performed By: #### 5 0190-8, 2276-4 ####[facility] [facility] LABIA [id number] [address] Iron binding capacity [Mass/Vol] 230 ug/dL Low 232-386 [facility] Comment on above: Order Comment: Speci men Type: BLOOD SPECIMENOrdering Facility: [facility] Address: [address] [place] [address] Performed By: #### 5 0190-8, 2276-4 ####[facility] LABIA [id number] [address] Iron/TIBC [Molar ratio] 24.8 % Normal 15.0-57.0 [facility] Comment on above: Order Comment: Speci men Type: BLOOD SPECIMENOrdering Facility: [facility] Address: [address] [place] [address] Performed By: #### 5 0190-8, 2276-4 ####[facility] [id number] [place] [id number] [place] Cardiology Visit Reporton Cardiology Visit Report [facility] [address] [place] [address] OFFICE VISIT Date of Service: 05/18/24 MR#: [id number] Acct: [id number] Name: CHANCE MUNOZ Rep #: [id number] : 1945 Provider: Dr. Vishal Monte MD Age/Sex: 78/M [place] [facility] [place] Signed HPI HPI History of Present Illness Details: CHANCE MUNOZ, is a 78 M who presents to the office today for a follow-up visit. He has a history of bradycardia and premature ventricular complexes. He returns for routine follow-up visit. This evaluation had demonstrated 4.4% PVCs on the Holter in 2016. He states he is allergic to RSV vaccination and "all generic medications due to fillers". He was seen in the emergency room for a near syncopal event. There was concern over a sinus pause as he did have a pause of about 1 second noted on his telemetry strip. He did undergo a 48-hour Holter monitor which did demonstrate sinus rhythm with occasional PVCs/PACs, average heart rate 85 bpm. Ventricular ectopy 1.4%, supraventricular ectopy 0.3%, atrial fibrillation 0.0%. He will continue with his current medical this time, and continue to monitor for any concerning symptoms. He denies chest, arm, jaw, or neck discomfort. He denies palpitations. He states mild, intermittent bilateral lower extremity edema. He denies claudication. He states shortness of breath with activity when he was clearing off the sidewalk. He was seen in the emergency department and workup was negative. He was treated for dehydration. He denies shortness of breath at rest, orthopnea, or PND. He denies chronic cough. He denies significant, sudden weight gain. He states dizziness when turning his head too quickly. He denies lightheadedness, near-syncope, or syncope. He denies blood in urine, blood in stool, or epistaxis. He denies fever with chills. He denies myalgia. He states fatigue. His exercise level has remained stable. Intake Vital Signs 04/08/23 13:23 12/18/23 09:31 05/18/24 14:00 Height 5 ft 10.5 in 5 ft 10.5 in 5 ft 10.5 in Weight: 154 lb BMI 21.7 BP 89/60 L Blood Pressure Location Lt brachial Position Sitting Respiration 16 Pulse 67 Pulse Source Monitor Intake Visit Reasons: 1 y fu Mri Technician Required: No Accompanied by: Self Is patient in pain?: No Allergies cefaclor (From Ceclor) Allergy (Verified 05/18/24 14:03) Unknown contact metal agent Allergy (Verified 05/18/24 14:03) Rash nortriptyline Allergy (Verified 05/18/24 14:03) Unknown Penicillins Allergy (Verified 05/18/24 14:03) blisters on feet alfuzosin (From Uroxatral) Adverse Reaction (Verified 05/18/24 14:03) Unknown esomeprazole (From Nexium) Adverse Reaction (Verified 05/18/24 14:03) Itching lansoprazole (From Prevacid) Adverse Reaction (Verified 05/18/24 14:03) Upset Stomach Medications ???Medication ???Instructions ???Recorded ???Confirmed ???Type finasteride 5 mg tablet 5 mg PO DAILY 01/09/21 05/18/24 Hi story paroxetine HCl 40 mg tablet 40 mg PO DAILY 01/09/21 05/18/24 H istory Acapella #1 ea 02/21/22 10/13/23 Rx spacer #1 ea 08/29/22 10/13/23 Rx tamsulosin 0.4 mg capsule 0.4 mg PO QHS 04/08/23 05/18/24 Hi story levothyroxine 100 mcg tablet 100 mcg PO QDAY 07/29/23 05/18/24 History fluticasone propionate 50 1 spray intranasal QDAY 10/13/23 0 05/18/24 History mcg/actuation nasal spray,suspension tralokinumab-ldrm 150 mg/mL 300 mg subcut Q2W 10/13/23 5 History subcutaneous syringe (Adbry) albuterol sulfate 90 mcg/actuation 2 inh inhalation Q6H PRN SOB #8. 5 11/17/23 05/18/24 Rx aerosol inhaler grams pantoprazole 40 mg tablet,delayed 40 mg PO DAILY #90 TABLETS 05/18/24 Rx release bupropion HCl 150 mg 24 hr tablet, 150 mg PO DAILY 05/18/24 5 History extended release polyethylene glycol 3350 17 4 g PO QDAY 05/18/24 05/18/24 Hist ory gram/dose oral powder (Miralax) Have you fallen in the past year?: [facility] MDS (myelodysplastic syndrome) Acute pharyngitis, unspecified Acute sinusitis, unspecified Impacted cerumen of both ears Acute bronchitis, unspecified Contact with and (suspected) exposure to other viral communicable diseases URI (upper respiratory infection) Right upper lobe pulmonary infiltrate Esophagitis Abdominal pain Hypothyroidism Wears dentures Anxiety Thyroid disease Arthritis Injury of back Loss of consciousness History of diverticulitis History of IBS History of hiatal hernia Non-smoker Seasonal allergies Leg cramps History of edema Cardiology follow-up encounter Personal history of colonic polyps Vertigo Concussion Chronic anemia Lipoma Skin lesion Fibromyalgia GERD (gastroesophageal (more content not included)... Normal [facility] CBC W Auto Differential pane l (Bld)on 05-17-2024 Basophils (Bld) [#/Vol] 10*3/uL Normal <0.11 [facility] Comment on above: Order Comment: Speci men Type: BLOOD SPECIMENOrdering Facility: [facility] Address: [address] [place] [address] Performed By: #### 5 7021-8 ####[facility] [id number] [place] [address] [place] Basophils/100 WBC (Bld) 0.4 % Normal [facility] Comment on above: Order Comment: Speci viet Type: BLOOD SPECIMENOrdering Facility: [facility] Address: [address] [place] [address] Performed By: #### 5 7021-8 ####[facility] [id number] [place] [address] [place] Differential cell count method Nom (Bld) Auto Normal [facility] Comment on above: Order Comment: Speci men Type: BLOOD SPECIMENOrdering Facility: [facility] Address: [address] [place] [address] Performed By: #### 5 7021-8 ####[facility] MIAMIA [id number] [place] [address] [place] Eosinophils (Bld) [#/Vol] 10*3/uL Normal <0.46 [facility] Comment on above: Order Comment: Speci men Type: BLOOD SPECIMENOrdering Facility: [facility] Address: [address] [place] [address] Performed By: #### 5 7021-8 ####[facility] SOWMYAEBERA [id number] [place] [address] [place] Eosinophils/100 WBC (Bld) 0.4 % Normal [facility] Comment on above: Order Comment: Speci men Type: BLOOD SPECIMENOrdering Facility: [facility] Address: [address] [place] [address] Performed By: #### 5 7021-8 ####[facility]ILDRENGMA [id number] [place] [address] [place] Erythrocyte distribution width (RBC) [Ratio] 13.2 % Normal 11.5-15.0 [facility] Comment on above: Order Comment: Speci men Type: BLOOD SPECIMENOrdering Facility: [facility] Address: [address] [place] [address] Performed By: #### 5 7021-8 ####[facility] MIAMIA [id number] [place] [address] [place] Hematocrit (Bld) [Volume fraction] 32.4 % Low 39.0-51.0 [facility] Comment on above: Order Comment: Speci men Type: BLOOD SPECIMENOrdering Facility: [facility] Address: [address] [place] [address] Performed By: #### 5 7021-8 ####[facility] SOWMYARIVERVIEW HOSPITALLIA [id number] [place] [address] [place] Hemoglobin (Bld) [Mass/Vol] 11.0 g/dL Low 13.0-17.0 [facility] Comment on above: Order Comment: Speci men Type: BLOOD SPECIMENOrdering Facility: [facility] Address: [address] [place] [address] Performed By: #### 5 7021-8 ####[facility] MED[facility] CENTERLIA [id number] [place] [address] [place] Immature granulocytes (Bld) [#/Vol] 0.03 10*3/uL Normal <0.10 [facility] Comment on above: Order Comment: Speci men Type: BLOOD SPECIMENOrdering Facility: [facility] Address: [address] [place] [address] Performed By: #### 5 7021-8 ####[facility] [id number] [place] [address] [place] Immature granulocytes/100 WBC (Bld) 1.1 % Normal [facility] Comment on above: Order Comment: Speci men Type: BLOOD SPECIMENOrdering Facility: [facility] Address: [address] [place] [address] Performed By: #### 5 7021-8 ####[facility] [id number] [place] [address] [place] Lymphocytes (Bld) [#/Vol] 0.67 10*3/uL Low 1.00-4.00 [facility] Comment on above: Order Comment: Speci men Type: BLOOD SPECIMENOrdering Facility: [facility] Address: [address] [place] [address] Performed By: #### 5 7021-8 ####[facility] [id number] [place] [address] [place] Lymphocytes/100 WBC (Bld) 24.1 % Normal [facility] Comment on above: Order Comment: Speci men Type: BLOOD SPECIMENOrdering Facility: [facility] Address: [address] [place] [address] Performed By: #### 5 7021-8 ####[facility] MIAMIA [id number] [place] [address] [place] MCH (RBC) [Entitic mass] 32.7 pg Normal 26.0-34.0 [facility] Comment on above: Order Comment: Speci men Type: BLOOD SPECIMENOrdering Facility: [facility] Address: [address] [place] [address] Performed By: #### 5 7021-8 ####[facility] [id number] [place] [address] [place] MCHC (RBC) [Mass/Vol] 34.0 g/dL Normal 30.5-36.0 [facility] Comment on above: Order Comment: Speci men Type: BLOOD SPECIMENOrdering Facility: [facility] Address: [address] [place], [place] [address] Performed By: #### 5 7021-8 ####[facility] [id number] [place] [address] [place] MCV (RBC) [Entitic vol] 96.4 fL Normal 80.0-100.0 [facility] Comment on above: Order Comment: Speci men Type: BLOOD SPECIMENOrdering Facility: [facility] Address: [address] [place] [address] Performed By: #### 5 7021-8 ####[facility] [id number] [place] [address] [place] Monocytes (Bld) [#/Vol] 0.16 10*3/uL Normal <0.87 [facility] Comment on above: Order Comment: Speci men Type: BLOOD SPECIMENOrdering Facility: [facility] Address: [address] [place] [address] Performed By: #### 5 7021-8 ####[facility] [id number] [place] [address] [place] Monocytes/100 WBC (Bld) 5.8 % Normal [facility] Comment on above: Order Comment: Speci men Type: BLOOD SPECIMENOrdering Facility: [facility] Address: [address] [place] [address] Performed By: #### 5 7021-8 ####[facility] MILLBLASWNCLIA [id number] [place] [address] [place] Neutrophils (Bld) [#/Vol] 1.90 10*3/uL Normal 1.45-7.50 [facility] Comment on above: Order Comment: Speci men Type: BLOOD SPECIMENOrdering Facility: [facility] Address: [address] [place] [address] Performed By: #### 5 7021-8 ####[facility] MILLWSTANLIA [id number] [place] [address] [place] Neutrophils/100 WBC (Bld) 68.2 % Normal [facility] Comment on above: Order Comment: Speci men Type: BLOOD SPECIMENOrdering Facility: [facility] Address: [address] [place] [address] Performed By: #### 5 7021-8 ####[facility] TAMIAWNCLIA [id number] [place] [address] [place] Nucleated RBC (Bld) [#/Vol] 10*3/uL Normal <0.01 [facility] Comment on above: Order Comment: Speci men Type: BLOOD SPECIMENOrdering Facility: [facility] Address: [address] [place] [address] Performed By: #### 5 7021-8 ####[facility] MILLTOWNCLIA [id number] [place] [address] [place] Nucleated RBC/100 WBC (Bld) [Ratio] 0.0 /100 WBC Normal [facility] Comment on above: Order Comment: Speci men Type: BLOOD SPECIMENOrdering Facility: [facility] Address: [address] [place] [address] Performed By: #### 5 7021-8 ####[facility] SOWMYATOWNCLIA [id number] [place] [address] [place] Platelet mean volume (Bld) [Entitic vol] 8.7 fL Low 9.0-12.7 [facility] Comment on above: Order Comment: Speci men Type: BLOOD SPECIMENOrdering Facility: [facility] Address: [address] [place] [address] Performed By: #### 5 7021-8 ####[facility] SOWMYACLIOSTANLIA [id number] [place] [address] [place] Platelets (Bld) [#/Vol] 114 10*3/uL Low 150-400 [facility] Comment on above: Order Comment: Speci men Type: BLOOD SPECIMENOrdering Facility: [facility] Address: [address] [place] [address] Performed By: #### 5 7021-8 ####[facility] [id number] [place] [address] [place] RBC (Bld) [#/Vol] 3.36 10*6/uL Low 4.20-6.00 [facility] Comment on above: Order Comment: Speci men Type: BLOOD SPECIMENOrdering Facility: [facility] Address: [address] [place] [address] Performed By: #### 5 7021-8 ####[facility] CHILDRENSTANLIA [id number] [place] [address] [place] WBC (Bld) [#/Vol] 2.78 10*3/uL Low 3.70-11.00 [facility] Comment on above: Order Comment: Speci men Type: BLOOD SPECIMENOrdering Facility: [facility] Address: [address] [place] [address] Performed By: #### 5 7021-8 ####[facility]ENNCLIA [id number] [address] [place] CNOVSPon 05-17-2024 CNOVSP Normal [facility] CBC W Auto Differential pane l (Bld)on 05-03-2024 Basophils (Bld) [#/Vol] 10*3/uL Normal <0.11 [facility] Comment on above: Order Comment: Speci men Type: BLOOD SPECIMENOrdering Facility: [facility] Address: [address] [place] [address] Performed By: #### 5 7021-8 ####[facility] CENTERLIA [id number] [place] [address] [place] Basophils/100 WBC (Bld) 0.3 % Normal [facility] Comment on above: Order Comment: Speci men Type: BLOOD SPECIMENOrdering Facility: [facility] Address: [address] [place] [address] Performed By: #### 5 7021-8 ####[facility] MIAMIA [id number] [place] [address] [place] Differential cell count method Nom (Bld) Auto Normal [facility] Comment on above: Order Comment: Speci men Type: BLOOD SPECIMENOrdering Facility: [facility] Address: [address] [place] [address] Performed By: #### 5 7021-8 ####[facility] MIAMIA [id number] [place] [address] [place] Eosinophils (Bld) [#/Vol] 10*3/uL Normal <0.46 [facility] Comment on above: Order Comment: Speci men Type: BLOOD SPECIMENOrdering Facility: [facility] Address: [address] [place] [address] Performed By: #### 5 7021-8 ####[facility] CENTERLIA [id number] [place] [address] [place] Eosinophils/100 WBC (Bld) 0.3 % Normal [facility] Comment on above: Order Comment: Speci men Type: BLOOD SPECIMENOrdering Facility: [facility] Address: [address] [place] [address] Performed By: #### 5 7021-8 ####[facility] [id number] [place] [address] [place] Erythrocyte distribution width (RBC) [Ratio] 14.7 % Normal 11.5-15.0 [facility] Comment on above: Order Comment: Speci men Type: BLOOD SPECIMENOrdering Facility: [facility] Address: [address] [place] [address] Performed By: #### 5 7021-8 ####[facility]DRENNCLI [id number] [place] [address] [place] Hematocrit (Bld) [Volume fraction] 36.9 % Low 39.0-51.0 [facility] Comment on above: Order Comment: Speci men Type: BLOOD SPECIMENOrdering Facility: [facility] Address: [address] [place] [address] Performed By: #### 5 7021-8 ####[facility] CENTERLIA [id number] [place] [address] [place] Hemoglobin (Bld) [Mass/Vol] 12.6 g/dL Low 13.0-17.0 [facility] Comment on above: Order Comment: Speci men Type: BLOOD SPECIMENOrdering Facility: [facility] Address: [address] [place] [address] Performed By: #### 5 7021-8 ####[facility] [id number] [place] [address] [place] Immature granulocytes (Bld) [#/Vol] 0.03 10*3/uL Normal <0.10 [facility] Comment on above: Order Comment: Speci men Type: BLOOD SPECIMENOrdering Facility: [facility] Address: [address] [place] [address] Performed By: #### 5 7021-8 ####[facility] CENTERLIA [id number] [place] [address] [place] [facility] Immature granulocytes/100 WBC (Bld) 0.9 % Normal [facility] Comment on above: Order Comment: Speci men Type: BLOOD SPECIMENOrdering Facility: [facility] Address: [address] [place] [address] Performed By: #### 5 7021-8 ####[facility] [id number] [place] [address] [place] Lymphocytes (Bld) [#/Vol] 0.69 10*3/uL Low 1.00-4.00 [facility] Comment on above: Order Comment: Speci men Type: BLOOD SPECIMENOrdering Facility: [facility] Address: [address] [place] [address] Performed By: #### 5 7021-8 ####[facility] [id number] [place] [address] [place] Lymphocytes/100 WBC (Bld) 20.5 % Normal [facility] Comment on above: Order Comment: Speci men Type: BLOOD SPECIMENOrdering Facility: [facility] Address: [address] [place] [address] Performed By: #### 5 7021-8 ####[facility] CENTERLI [id number] [place] [address] [place] MCH (RBC) [Entitic mass] 33.0 pg Normal 26.0-34.0 [facility] Comment on above: Order Comment: Speci men Type: BLOOD SPECIMENOrdering Facility: [facility] Address: [address] [place] [address] Performed By: #### 5 7021-8 ####[facility] [id number] [place] [address] [place] MCHC (RBC) [Mass/Vol] 34.1 g/dL Normal 30.5-36.0 [facility] Comment on above: Order Comment: Speci men Type: BLOOD SPECIMENOrdering Facility: [facility] Address: [address] [place] [address] Performed By: #### 5 7021-8 ####[facility] CHILDRENSTANSolo [id number] [place] [address] [place] MCV (RBC) [Entitic vol] 96.6 fL Normal 80.0-100.0 [facility] Comment on above: Order Comment: Speci men Type: BLOOD SPECIMENOrdering Facility: [facility] Address: [address] [place] [address] Performed By: #### 5 7021-8 ####[facility] CHILDRENSTANSolo [id number] [place] [address] [place] Monocytes (Bld) [#/Vol] 0.27 10*3/uL Normal <0.87 [facility] Comment on above: Order Comment: Speci men Type: BLOOD SPECIMENOrdering Facility: [facility] Address: [address] [place] [address] Performed By: #### 5 7021-8 ####[facility] CHILDRENSTANLISolo [id number] [place] [address] [place] Monocytes/100 WBC (Bld) 8.0 % Normal [facility] Comment on above: Order Comment: Speci men Type: BLOOD SPECIMENOrdering Facility: [facility] Address: [address] [place] [address] Performed By: #### 5 7021-8 ####[facility]DRENNCLIA [id number] [place] [address] [place] Neutrophils (Bld) [#/Vol] 2.36 10*3/uL Normal 1.45-7.50 [facility] Comment on above: Order Comment: Speci men Type: BLOOD SPECIMENOrdering Facility: [facility] Address: [address] [place] [address] Performed By: #### 5 7021-8 ####[facility] [id number] [place] [address] [place] Neutrophils/100 WBC (Bld) 70.0 % Normal [facility] Comment on above: Order Comment: Speci men Type: BLOOD SPECIMENOrdering Facility: [facility] Address: [address] [place] [address] Performed By: #### 5 7021-8 ####[facility] [id number] [place] [address] [place] Nucleated RBC (Bld) [#/Vol] 0.04 10*3/uL High <0.01 [facility] Comment on above: Order Comment: Speci men Type: BLOOD SPECIMENOrdering Facility: [facility] Address: [address] [place] [address] Performed By: #### 5 7021-8 ####[facility] [id number] [place] [address] [place] Nucleated RBC/100 WBC (Bld) [Ratio] 1.2 /100 WBC Normal [facility] Comment on above: Order Comment: Speci men Type: BLOOD SPECIMENOrdering Facility: [facility] Address: [address] [place] [address] Performed By: #### 5 7021-8 ####[facility] [id number] [place] [address] [place] Platelet mean volume (Bld) [Entitic vol] 8.9 fL Low 9.0-12.7 [facility] Comment on above: Order Comment: Speci men Type: BLOOD SPECIMENOrdering Facility: [facility] Address: [address] [place] [address] Performed By: #### 5 7021-8 ####[facility] SOWMYATatianaNCLATASHAA [id number] [place] [address] [place] Platelets (Bld) [#/Vol] 133 10*3/uL Low 150-400 [facility] Comment on above: Order Comment: Speci men Type: BLOOD SPECIMENOrdering Facility: [facility] Address: [address] [place] [address] Performed By: #### 5 7021-8 ####[facility]DRENNCL[facility] [id number] [place] [address] [place] RBC (Bld) [#/Vol] 3.82 10*6/uL Low 4.20-6.00 [facility] Comment on above: Order Comment: Speci men Type: BLOOD SPECIMENOrdering Facility: [facility] Address: [address] [place] [address] Performed By: #### 5 7021-8 ####[facility] MIAMIA [id number] [place] [address] [place] WBC (Bld) [#/Vol] 3.37 10*3/uL Low 3.70-11.00 [facility] Comment on above: Order Comment: Speci men Type: BLOOD SPECIMENOrdering Facility: [facility] Address: [address] [place] [address] Performed By: #### 5 7021-8 ####[facility]CL[facility] [id number] [place] [address] [place] CBC W Auto Differential pane l (Bld)on 04-19-2024 Basophils (Bld) [#/Vol] 0.00 10*3/uL Normal <0.11 [facility] Comment on above: Order Comment: Speci men Type: BLOOD SPECIMENOrdering Facility: [facility] Address: [address] [place], [place] [address], [place] [address] Performed By: #### 5 7021-8 ####[facility] MILLBLASWNCLIA [id number] [address] LABORATORYCLIA [id number] [place] [address] [place] Basophils/100 WBC (Bld) 0.0 % Normal [facility] Comment on above: Order Comment: Speci men Type: BLOOD SPECIMENOrdering Facility: [facility] Address: [address] [place] [id number] Performed By: #### 5 7021-8 ####[facility]OSPITALWNCLIA [id number] [address] LABORATORYCLIA [id number] [place] [address] [place] Dacrocytes LM Ql (Bld) Few Normal [facility] Comment on above: Order Comment: Speci men Type: BLOOD SPECIMENOrdering Facility: [facility] Address: [address] [place] [address] Performed By: #### 5 7021-8 ####[facility]PITALWNCLIA [id number] [address] LABORATORYCLIA [id number] [place] [address] [place] Differential cell count method Nom (Bld) Manual Normal [facility] Comment on above: Order Comment: Speci men Type: BLOOD SPECIMENOrdering Facility: [facility] Address: [address] [place] [address] Performed By: #### 5 7021-8 ####[facility]OSPITALWNCLIA [id number] [address] LABORATORYCLIA [id number] [address] [place] Eosinophils (Bld) [#/Vol] 0.09 10*3/uL Normal <0.46 [facility] Comment on above: Order Comment: Speci men Type: BLOOD SPECIMENOrdering Facility: [facility] Address: [address] [place] [address] Performed By: #### 5 7021-8 ####[facility] MILLTOWNCLIA [id number] [address] LABORATORYCLIA [id number] [place] [address] [place] Eosinophils/100 WBC (Bld) 3.0 % Normal [facility] Comment on above: Order Comment: Speci men Type: BLOOD SPECIMENOrdering Facility: [facility] Address: [address] [place] [address] Performed By: #### 5 7021-8 ####[facility] HOSPITALWRILIA [id number] [address] LABORATORYCLIA [id number] [place] [address] [place] Erythrocyte distribution width (RBC) [Ratio] 13.7 % Normal 11.5-15.0 [facility] Comment on above: Order Comment: Speci men Type: BLOOD SPECIMENOrdering Facility: [facility] Address: [address] [place] [address] Performed By: #### 5 7021-8 ####[facility]OSPITALWNCLIA [id number] [address] LABORATORYCLIA [id number] [place] [address] [place] Hematocrit (Bld) [Volume fraction] 28.8 % Low 39.0-51.0 [facility] Comment on above: Order Comment: Speci men Type: BLOOD SPECIMENOrdering Facility: [facility] Address: [address] [place], [place] [address] Performed By: #### 5 7021-8 ####[facility] MILLTOWNCLIA [id number] [address] LABORATORYCLIA [id number] [place] [address] [place] Hemoglobin (Bld) [Mass/Vol] 9.6 g/dL Low 13.0-17.0 [facility] Comment on above: Order Comment: Speci men Type: BLOOD SPECIMENOrdering Facility: [facility] Address: [address] [place] [address] Performed By: #### 5 7021-8 ####[facility]ILDRENSTNALIA [id number] [address] LABORATORYCLIA [id number] [place] [address] [place] Lymphocytes (Bld) [#/Vol] 0.59 10*3/uL Low 1.00-4.00 [facility] Comment on above: Order Comment: Speci men Type: BLOOD SPECIMENOrdering Facility: [facility] Address: [address] [place] [address] Performed By: #### 5 7021-8 ####[facility]PITALWNCLIA [id number] [address] LABORATORYCLIA [id number] [place] [address] [place] Lymphocytes/100 WBC (Bld) 20.0 % Normal [facility] Comment on above: Order Comment: Speci men Type: BLOOD SPECIMENOrdering Facility: [facility] Address: [address] [place] [address] Performed By: #### 5 7021-8 ####[facility]ITALTOWNCLIA [id number] [address] LABORATORYCLIA [id number] [place] [address] [place] MCH (RBC) [Entitic mass] 31.7 pg Normal 26.0-34.0 [facility] Comment on above: Order Comment: Speci men Type: BLOOD SPECIMENOrdering Facility: [facility] Address: [address] [place] [address] Performed By: #### 5 7021-8 ####[facility] MIAMIA [id number] [address] LABORATORYCLIA [id number] [place] [address] [place] MCHC (RBC) [Mass/Vol] 33.3 g/dL Normal 30.5-36.0 [facility] Comment on above: Order Comment: Speci men Type: BLOOD SPECIMENOrdering Facility: [facility] Address: [address] [place] [address] Performed By: #### 5 7021-8 ####[facility] MIAMIA [id number] [address] LABORATORYCLIA [id number] [address] [place] MCV (RBC) [Entitic vol] 95.0 fL Normal 80.0-100.0 [facility] Comment on above: Order Comment: Speci men Type: BLOOD SPECIMENOrdering Facility: [facility] Address: [address] [place] [address] Performed By: #### 5 7021-8 ####[facility] MIAMIA [id number] [address] LABORATORYCLIA [id number] [address] [place] Monocytes (Bld) [#/Vol] 0.12 10*3/uL Normal <0.87 [facility] Comment on above: Order Comment: Speci men Type: BLOOD SPECIMENOrdering Facility: [facility] Address: [address] [place] [address] Performed By: #### 5 7021-8 ####[facility] DIAZ MILLTOWNCLIA [id number] [address] LABORATORYCLIA [id number] [place] [address] [place] Monocytes/100 WBC (Bld) 4.0 % Normal [facility] Comment on above: Order Comment: Speci men Type: BLOOD SPECIMENOrdering Facility: [facility] Address: [address] [place] [address] Performed By: #### 5 7021-8 ####[facility] MILLTOWNCLIA [id number] [address] LABORATORYCLIA [id number] [place] [address] [place] Neutrophils (Bld) [#/Vol] 2.14 10*3/uL Normal 1.45-7.50 [facility] Comment on above: Order Comment: Speci men Type: BLOOD SPECIMENOrdering Facility: [facility] Address: [address] [place] [address] Performed By: #### 5 7021-8 ####[facility] MILLTOWNCLIA [id number] [address] LABORATORYCLIA [id number] [place] [address] [place] Neutrophils/100 WBC (Bld) 73.0 % Normal [facility] Comment on above: Order Comment: Speci men Type: BLOOD SPECIMENOrdering Facility: [facility] Address: [address] [place] [address] Performed By: #### 5 7021-8 ####[facility] DIAZ MILLTOWNCLIA [id number] [address] LABORATORYCLIA [id number] [place] [address] [place] Nucleated RBC (Bld) [#/Vol] 10*3/uL Normal <0.01 [facility] Comment on above: Order Comment: Speci men Type: BLOOD SPECIMENOrdering Facility: [facility] Address: [address] [place] [address] Performed By: #### 5 7021-8 ####[facility] MIAMIA [id number] [address] LABORATORYCLIA [id number] [place] [address] [place] Nucleated RBC/100 WBC (Bld) [Ratio] 0.0 /100 WBC Normal [facility] Comment on above: Order Comment: Speci men Type: BLOOD SPECIMENOrdering Facility: [facility] Address: [address] [place] [address] Performed By: #### 5 7021-8 ####[facility] MIAMIA [id number] [address] LABORATORYCLIA [id number] [place] [address] [place] Ovalocytes LM Ql (Bld) Few Normal [facility] Comment on above: Order Comment: Speci men Type: BLOOD SPECIMENOrdering Facility: [facility] Address: [address] [place] [address] Performed By: #### 5 7021-8 ####[facility] MIAMIA [id number] [address] LABORATORYCLIA [id number] [place] [address] [place] Platelet mean volume (Bld) [Entitic vol] 8.6 fL Low 9.0-12.7 [facility] Comment on above: Order Comment: Speci men Type: BLOOD SPECIMENOrdering Facility: [facility] Address: [address] [place] [address] Performed By: #### 5 7021-8 ####[facility]ITALWNCLIA [id number] [address] LABORATORYCLIA [id number] [place] [address] [facility] [place] Platelets (Bld) [#/Vol] 100 10*3/uL Low 150-400 [facility] Comment on above: Order Comment: Speci men Type: BLOOD SPECIMENOrdering Facility: [facility] Address: [address] [place] [address] Result Comment: No c lot detected. Performed By: #### 5 7021-8 ####[facility] MIAMIA [id number] [address] LABORATORYCLIA [id number] [place] [address] [place] Platelets Estimate (Bld) [#/Vol] Decreased Normal [facility] Comment on above: Order Comment: Speci men Type: BLOOD SPECIMENOrdering Facility: [facility] Address: [address] [place] [address] Performed By: #### 5 7021-8 ####[facility] MIAMIA [id number] [address] LABORATORYCLIA [id number] [place] [address] [place] RBC (Bld) [#/Vol] 3.03 10*6/uL Low 4.20-6.00 [facility] Comment on above: Order Comment: Speci men Type: BLOOD SPECIMENOrdering Facility: [facility] Address: [address] [place] [address] Performed By: #### 5 7021-8 ####[facility] MILLWNCLIA [id number] [address] LABORATORYCLIA [id number] [address] STATES [facility] RED CELL MORPH Reviewed: see result s of individual morphologies Normal [facility] Comment on above: Order Comment: Speci men Type: BLOOD SPECIMENOrdering Facility: [facility] Address: [address] [place] [address] Performed By: #### 5 7021-8 ####[facility]ILDRENNCLIA [id number] [address] LABORATORYCLIA [id number] [place] [address] [place] WBC (Bld) [#/Vol] 2.93 10*3/uL Low 3.70-11.00 [facility] Comment on above: Order Comment: Speci men Type: BLOOD SPECIMENOrdering Facility: [facility] Address: [address] [place] [address] Performed By: #### 5 7021-8 ####[facility]ILDRENNCLIA [id number] [address] LABORATORYCLIA [id number] [place] [address] [place] Head/Neck Soft Tissueon - Head/Neck Soft Tissue [facility] [address] [place] [address] Head/Neck Soft Tissue MR#: [id number] Acct: [id number] Name: CHANCE MUNOZ Rep #: [id number] : 1945 M 78 From: Jarvis Bryan i DO PCP: Dr. Shreyas Amezquita, DO Status: REG CLI Study: Head/Neck Soft Tissue Date of Exam: 04/19/24 Exam# [id number] Ordering Dr: Shreyas Amezquita DO PROCEDURE: Ultrasound of the salivary glands. REASON FOR EXAM: Small mass at the base of the left parotid gland. COMPARISON: Available TECHNIQUE: Targeted ultrasound of the left parotid gland was performed. FINDINGS: Ultrasound of the bilateral parotid and submandibular glands was obtained. The right submandibular gland measures up to 5.3 cm, 5.1 cm on the left. The right submandibular gland measures up to 3.7 cm, compared to 3.5 cm on the left. No discrete sonographic abnormality of the submandibular glands or right parotid gland. Sonographically normal-appearing lymph nodes near the bilateral parotid glands. At the superficial margin of the left parotid gland, at the site of the palpable abnormality, there is a 2 cm fairly simple appearing cystic structure, which extends into the deep margin of the overlying subcutaneous fat. No definite internal blood flow is demonstrated. No solid-appearing lesion of the left parotid gland. US/Head/Neck Soft Tissue IMPRESSION: 2 cm simple appearing cystic structure at the superficial margin of the left parotid gland, extending into the deep margin of the overlying subcutaneous fat, at the region of interest. No definite internal blood flow is demonstrated. No peripheral nodularity within this cystic structure. Suggest close clinical and/or sonographic follow-up. If there is clinical concern or patient anxiety, this could be aspirated under ultrasound guidance. No solid-appearing nodules of the major salivary glands. Reading Location: [facility] CC: Dr. Shreyas Amezquita DO Organic Preparation Analyst: Signed Normal [facility] CBC W Auto Differential pane l (Bld)on 04-05-2024 Basophils (Bld) [#/Vol] 10*3/uL Normal <0.11 [facility] Comment on above: Order Comment: Speci men Type: BLOOD SPECIMENOrdering Facility: [facility] Address: [address] [place], [place] [address] Performed By: #### 5 7021-8 ####[facility] [id number] [place] [address] [place] Basophils/100 WBC (Bld) 0.2 % Normal [facility] Comment on above: Order Comment: Speci men Type: BLOOD SPECIMENOrdering Facility: [facility] Address: [address] [place] [address] Performed By: #### 5 7021-8 ####[facility] MED[facility] CENTERLIA [id number] [place] [address] [place] Differential cell count method Nom (Bld) Auto Normal [facility] Comment on above: Order Comment: Speci men Type: BLOOD SPECIMENOrdering Facility: [facility] Address: [address] [place] [address] Performed By: #### 5 7021-8 ####[facility] MIAMIA [id number] [place] [address] [place] Eosinophils (Bld) [#/Vol] 10*3/uL Normal <0.46 [facility] Comment on above: Order Comment: Speci men Type: BLOOD SPECIMENOrdering Facility: [facility] Address: [address] [place] [address] Performed By: #### 5 7021-8 ####[facility] MIAMIA [id number] [place] [address] [place] Eosinophils/100 WBC (Bld) 0.4 % Normal [facility] Comment on above: Order Comment: Speci men Type: BLOOD SPECIMENOrdering Facility: [facility] Address: [address] [place] [address] Performed By: #### 5 7021-8 ####[facility] MIAMIA [id number] [place] [address] [place] Erythrocyte distribution width (RBC) [Ratio] 14.6 % Normal 11.5-15.0 [facility] Comment on above: Order Comment: Speci men Type: BLOOD SPECIMENOrdering Facility: [facility] Address: [address] [place] [address] Performed By: #### 5 7021-8 ####[facility]ILDRENNCLIA [id number] [place] [address] [place] Hematocrit (Bld) [Volume fraction] 33.5 % Low 39.0-51.0 [facility] Comment on above: Order Comment: Speci men Type: BLOOD SPECIMENOrdering Facility: [facility] Address: [address] [place] [address] Performed By: #### 5 7021-8 ####[facility]ILDRENMANUEL [id number] [place] [address] [place] Hemoglobin (Bld) [Mass/Vol] 11.2 g/dL Low 13.0-17.0 [facility] Comment on above: Order Comment: Speci men Type: BLOOD SPECIMENOrdering Facility: [facility] Address: [address] [place] [address] Performed By: #### 5 7021-8 ####[facility] CENTERLI [id number] [place] [address] [place] Immature granulocytes (Bld) [#/Vol] 0.10 10*3/uL High <0.10 [facility] Comment on above: Order Comment: Speci men Type: BLOOD SPECIMENOrdering Facility: [facility] Address: [address] [place] [address] Performed By: #### 5 7021-8 ####[facility] CHILDRENSTANLIA [id number] [place] [address] [place] Immature granulocytes/100 WBC (Bld) 2.0 % Normal [facility] Comment on above: Order Comment: Speci men Type: BLOOD SPECIMENOrdering Facility: [facility] Address: [address] [place] [address] Performed By: #### 5 7021-8 ####[facility]DRENNCLI [id number] [place] [id number] [place] Lymphocytes (Bld) [#/Vol] 0.74 10*3/uL Low 1.00-4.00 [facility] Comment on above: Order Comment: Speci men Type: BLOOD SPECIMENOrdering Facility: [facility] Address: [address] [place] [address] Performed By: #### 5 7021-8 ####[facility] [id number] [place] [address] [place] Lymphocytes/100 WBC (Bld) 14.8 % Normal [facility] Comment on above: Order Comment: Speci men Type: BLOOD SPECIMENOrdering Facility: [facility] Address: [address] [place] [address] Performed By: #### 5 7021-8 ####[facility] [id number] [place] [address] [place] MCH (RBC) [Entitic mass] 32.3 pg Normal 26.0-34.0 [facility] Comment on above: Order Comment: Speci men Type: BLOOD SPECIMENOrdering Facility: [facility] Address: [address] [place] [address] Performed By: #### 5 7021-8 ####[facility] [id number] [place] [address] [place] MCHC (RBC) [Mass/Vol] 33.4 g/dL Normal 30.5-36.0 [facility] Comment on above: Order Comment: Speci men Type: BLOOD SPECIMENOrdering Facility: [facility] Address: [address] [place] [address] Performed By: #### 5 7021-8 ####[facility]DRENNCLI [id number] [place] [address] [place] MCV (RBC) [Entitic vol] 96.5 fL Normal 80.0-100.0 [facility] Comment on above: Order Comment: Speci men Type: BLOOD SPECIMENOrdering Facility: [facility] Address: [address] [place] [address] Performed By: #### 5 7021-8 ####[facility] LUCY [id number] [place] [address] [place] Monocytes (Bld) [#/Vol] 0.35 10*3/uL Normal <0.87 [facility] Comment on above: Order Comment: Speci men Type: BLOOD SPECIMENOrdering Facility: [facility] Address: [address] [place] [address] Performed By: #### 5 7021-8 ####[facility] [id number] [place] [address] [place] Monocytes/100 WBC (Bld) 7.0 % Normal [facility] Comment on above: Order Comment: Speci men Type: BLOOD SPECIMENOrdering Facility: [facility] Address: [address] [place] [address] Performed By: #### 5 7021-8 ####[facility] [id number] [place] [address] [place] Neutrophils (Bld) [#/Vol] 3.79 10*3/uL Normal 1.45-7.50 [facility] Comment on above: Order Comment: Speci men Type: BLOOD SPECIMENOrdering Facility: [facility] Address: [address] [place] [address] Performed By: #### 5 7021-8 ####[facility] MIAMIA [id number] [place] [address] [place] Neutrophils/100 WBC (Bld) 75.6 % Normal [facility] Comment on above: Order Comment: Speci men Type: BLOOD SPECIMENOrdering Facility: [facility] Address: [address] [place] [address] Performed By: #### 5 7021-8 ####[facility]DRENNCLIA [id number] [place] [address] [place] Nucleated RBC (Bld) [#/Vol] 0.07 10*3/uL High <0.01 [facility] Comment on above: Order Comment: Speci men Type: BLOOD SPECIMENOrdering Facility: [facility] Address: [address] [place] [address] Performed By: #### 5 7021-8 ####[facility] [id number] [place] [address] [place] Nucleated RBC/100 WBC (Bld) [Ratio] 1.4 /100 WBC Normal [facility] Comment on above: Order Comment: Speci men Type: BLOOD SPECIMENOrdering Facility: [facility] Address: [address] [place] [address] Performed By: #### 5 7021-8 ####[facility] CENTERLIA [id number] [place] [address] [place] Platelet mean volume (Bld) [Entitic vol] 8.9 fL Low 9.0-12.7 [facility] Comment on above: Order Comment: Speci men Type: BLOOD SPECIMENOrdering Facility: [facility] Address: [address] [place] [address] Performed By: #### 5 7021-8 ####[facility] CENTERLIA [id number] [place] [address] [place] Platelets (Bld) [#/Vol] 112 10*3/uL Low 150-400 [facility] Comment on above: Order Comment: Speci men Type: BLOOD SPECIMENOrdering Facility: [facility] Address: [address] [place] [address] Performed By: #### 5 7021-8 ####[facility]ENTERLI [id number] [place] [address] [place] RBC (Bld) [#/Vol] 3.47 10*6/uL Low 4.20-6.00 [facility] Comment on above: Order Comment: Speci men Type: BLOOD SPECIMENOrdering Facility: [facility] Address: [address] [place] [address] Performed By: #### 5 7021-8 ####[facility]ENMAN[facility] [id number] [place] [address] [place] WBC (Bld) [#/Vol] 5.01 10*3/uL Normal 3.70-11.00 [facility] Comment on above: Order Comment: Speci men Type: BLOOD SPECIMENOrdering Facility: [facility] Address: [address] [place] [address] Performed By: #### 5 7021-8 ####[facility]MAN[facility] [id number] [place] [address] [place] CBC W Auto Differential pane l (Bld)on 03-22-2024 Basophils (Bld) [#/Vol] 10*3/uL Normal <0.11 [facility] Comment on above: Order Comment: Speci men Type: BLOOD SPECIMENOrdering Facility: [facility] Address: [address] [place] [address] Performed By: #### 5 7021-8 ####[facility] [id number] [place] [address] [place] Basophils/100 WBC (Bld) 0.3 % Normal [facility] Comment on above: Order Comment: Speci men Type: BLOOD SPECIMENOrdering Facility: [facility] Address: [address] [place] [address] Performed By: #### 5 7021-8 ####[facility] CHILDRENSTANLISolo [id number] [place] [address] [place] Differential cell count method Nom (Bld) Auto Normal [facility] Comment on above: Order Comment: Speci men Type: BLOOD SPECIMENOrdering Facility: [facility] Address: [address] [place] [address] Performed By: #### 5 7021-8 ####[facility] [id number] [place] [address] [place] Eosinophils (Bld) [#/Vol] 10*3/uL Normal <0.46 [facility] Comment on above: Order Comment: Speci men Type: BLOOD SPECIMENOrdering Facility: [facility] Address: [address] [place] [address] Performed By: #### 5 7021-8 ####[facility] [id number] [place] [address] [place] Eosinophils/100 WBC (Bld) 0.5 % Normal [facility] Comment on above: Order Comment: Speci men Type: BLOOD SPECIMENOrdering Facility: [facility] Address: [address] [place] [address] Performed By: #### 5 7021-8 ####[facility] [id number] [place] [address] [place] Erythrocyte distribution width (RBC) [Ratio] 14.6 % Normal 11.5-15.0 [facility] Comment on above: Order Comment: Speci men Type: BLOOD SPECIMENOrdering Facility: [facility] Address: [address] [place] [address] Performed By: #### 5 7021-8 ####[facility] [id number] [place] [address] [place] Hematocrit (Bld) [Volume fraction] 36.3 % Low 39.0-51.0 [facility] Comment on above: Order Comment: Speci men Type: BLOOD SPECIMENOrdering Facility: [facility] Address: [address] [place] [address] Performed By: #### 5 7021-8 ####[facility] SOWMYAWNCLIA [id number] [place] [address] [place] Hemoglobin (Bld) [Mass/Vol] 12.1 g/dL Low 13.0-17.0 [facility] Comment on above: Order Comment: Speci men Type: BLOOD SPECIMENOrdering Facility: [facility] Address: [address] [place] [address] Performed By: #### 5 7021-8 ####[facility] [id number] [place] [address] [place] Immature granulocytes (Bld) [#/Vol] 0.04 10*3/uL Normal <0.10 [facility] Comment on above: Order Comment: Speci men Type: BLOOD SPECIMENOrdering Facility: [facility] Address: [address] [place] [address] Performed By: #### 5 7021-8 ####[facility] [id number] [place] [address] [place] Immature granulocytes/100 WBC (Bld) 1.0 % Normal [facility] [facility] Comment on above: Order Comment: Speci men Type: BLOOD SPECIMENOrdering Facility: [facility] Address: [address] [place] [address] Performed By: #### 5 7021-8 ####[facility]CLIA [id number] [place] [address] [place] Lymphocytes (Bld) [#/Vol] 1.17 10*3/uL Normal 1.00-4.00 [facility] Comment on above: Order Comment: Speci men Type: BLOOD SPECIMENOrdering Facility: [facility] Address: [address] [place] [address] Performed By: #### 5 7021-8 ####[facility]ENMANUEL [id number] [place] [address] [place] Lymphocytes/100 WBC (Bld) 30.2 % Normal [facility] Comment on above: Order Comment: Speci men Type: BLOOD SPECIMENOrdering Facility: [facility] Address: [address] [place] [address] Performed By: #### 5 7021-8 ####[facility]ENMANUEL [id number] [place] [address] [place] MCH (RBC) [Entitic mass] 31.8 pg Normal 26.0-34.0 [facility] Comment on above: Order Comment: Speci men Type: BLOOD SPECIMENOrdering Facility: [facility] Address: [address] [place] [address] Performed By: #### 5 7021-8 ####[facility] [id number] [place] [address] [place] MCHC (RBC) [Mass/Vol] 33.3 g/dL Normal 30.5-36.0 [facility] Comment on above: Order Comment: Speci men Type: BLOOD SPECIMENOrdering Facility: [facility] Address: [address] [place] [address] Performed By: #### 5 7021-8 ####[facility]ENNCLIA [id number] [place] [address] [place] MCV (RBC) [Entitic vol] 95.3 fL Normal 80.0-100.0 [facility] Comment on above: Order Comment: Speci men Type: BLOOD SPECIMENOrdering Facility: [facility] Address: [address] [place] [address] Performed By: #### 5 7021-8 ####[facility]ENNCLIA [id number] [place] [address] [place] Monocytes (Bld) [#/Vol] 0.18 10*3/uL Normal <0.87 [facility] Comment on above: Order Comment: Speci men Type: BLOOD SPECIMENOrdering Facility: [facility] Address: [address] [place] [address] Performed By: #### 5 7021-8 ####[facility] [id number] [place] [address] [place] Monocytes/100 WBC (Bld) 4.7 % Normal [facility] Comment on above: Order Comment: Speci men Type: BLOOD SPECIMENOrdering Facility: [facility] Address: [address] [place] [address] Performed By: #### 5 7021-8 ####[facility] [id number] [place] [address] [place] Neutrophils (Bld) [#/Vol] 2.45 10*3/uL Normal 1.45-7.50 [facility] Comment on above: Order Comment: Speci men Type: BLOOD SPECIMENOrdering Facility: [facility] Address: [address] [place] [address] Performed By: #### 5 7021-8 ####[facility] [id number] [place] [address] [place] Neutrophils/100 WBC (Bld) 63.3 % Normal [facility] Comment on above: Order Comment: Speci men Type: BLOOD SPECIMENOrdering Facility: [facility] Address: [address] [place] [address] Performed By: #### 5 7021-8 ####[facility] [id number] [place] [address] [place] Nucleated RBC (Bld) [#/Vol] 0.02 10*3/uL High <0.01 [facility] Comment on above: Order Comment: Speci men Type: BLOOD SPECIMENOrdering Facility: [facility] Address: [address] [place] [address] Performed By: #### 5 7021-8 ####[facility] LUCY [id number] [place] [address] [place] Nucleated RBC/100 WBC (Bld) [Ratio] 0.5 /100 WBC Normal [facility] Comment on above: Order Comment: Speci men Type: BLOOD SPECIMENOrdering Facility: [facility] Address: [address] [place] [address] Performed By: #### 5 7021-8 ####[facility] SOWMYACLIOMANUEL [id number] [place] [address] [place] Platelet mean volume (Bld) [Entitic vol] 9.6 fL Normal 9.0-12.7 [facility] Comment on above: Order Comment: Speci men Type: BLOOD SPECIMENOrdering Facility: [facility] Address: [address] [place] [address] Performed By: #### 5 7021-8 ####[facility]DRENGMA [id number] [place] [address] [place] Platelets (Bld) [#/Vol] 130 10*3/uL Low 150-400 [facility] Comment on above: Order Comment: Speci men Type: BLOOD SPECIMENOrdering Facility: [facility] Address: [address] [place] [address] Performed By: #### 5 7021-8 ####[facility] SOWMYACLIOSTANLIA [id number] [place] [address] [place] RBC (Bld) [#/Vol] 3.81 10*6/uL Low 4.20-6.00 [facility] Comment on above: Order Comment: Speci men Type: BLOOD SPECIMENOrdering Facility: [facility] Address: [address] [place] [address] Performed By: #### 5 7021-8 ####[facility]PITALWNCLIA [id number] [place] [address] [place] WBC (Bld) [#/Vol] 3.87 10*3/uL Normal 3.70-11.00 [facility] Comment on above: Order Comment: Speci men Type: BLOOD SPECIMENOrdering Facility: [facility] Address: [address] [place] [address] Performed By: #### 5 7021-8 ####[facility] HOSPITALWSTANLIA [id number] [place] [address] [place] CBC W Auto Differential pane l (Bld)on 03-09-2024 Basophils (Bld) [#/Vol] 10*3/uL Normal <0.11 [facility] Comment on above: Order Comment: Speci men Type: BLOOD SPECIMENOrdering Facility: [facility] Address: [address] [place] [address] Performed By: #### 5 7021-8 ####[facility] MIAMIA [id number] [place] [address] [place] Basophils/100 WBC (Bld) 0.0 % Normal [facility] Comment on above: Order Comment: Speci men Type: BLOOD SPECIMENOrdering Facility: [facility] Address: [address] [place] [address] Performed By: #### 5 7021-8 ####[facility] CHILDRENSTANLIA [id number] [address] [place] Differential cell count method Nom (Bld) Auto Normal [facility] Comment on above: Order Comment: Speci men Type: BLOOD SPECIMENOrdering Facility: [facility] Address: [address] [place] [address] Performed By: #### 5 7021-8 ####[facility] CHILDRENSTANLIA [id number] [place] [address] [place] Eosinophils (Bld) [#/Vol] 10*3/uL Normal <0.46 [facility] Comment on above: Order Comment: Speci men Type: BLOOD SPECIMENOrdering Facility: [facility] Address: [address] [place] [address] Performed By: #### 5 7021-8 ####[facility] CHILDRENNCLATASHAA [id number] [place] [address] [place] Eosinophils/100 WBC (Bld) 0.5 % Normal [facility] Comment on above: Order Comment: Speci men Type: BLOOD SPECIMENOrdering Facility: [facility] Address: [address] [place] [address] Performed By: #### 5 7021-8 ####[facility] [id number] [place] [address] [place] Erythrocyte distribution width (RBC) [Ratio] 15.2 % High 11.5-15.0 [facility] Comment on above: Order Comment: Speci men Type: BLOOD SPECIMENOrdering Facility: [facility] Address: [address] [place] [address] Performed By: #### 5 7021-8 ####[facility] [id number] [place] [address] [place] Hematocrit (Bld) [Volume fraction] 34.1 % Low 39.0-51.0 [facility] Comment on above: Order Comment: Speci men Type: BLOOD SPECIMENOrdering Facility: [facility] Address: [address] [place] [address] Performed By: #### 5 7021-8 ####[facility]DRENNCLIA [id number] [place] [address] [place] Hemoglobin (Bld) [Mass/Vol] 11.3 g/dL Low 13.0-17.0 [facility] Comment on above: Order Comment: Speci men Type: BLOOD SPECIMENOrdering Facility: [facility] Address: [address] [place] [address] Performed By: #### 5 7021-8 ####[facility] SOWMYACLIOMANUEL [id number] [place] [address] [place] Immature granulocytes (Bld) [#/Vol] 0.04 10*3/uL Normal <0.10 [facility] Comment on above: Order Comment: Speci men Type: BLOOD SPECIMENOrdering Facility: [facility] Address: [address] [place] [address] Performed By: #### 5 7021-8 ####[facility] [id number] [place] [address] [place] Immature granulocytes/100 WBC (Bld) 1.1 % Normal [facility] Comment on above: Order Comment: Speci men Type: BLOOD SPECIMENOrdering Facility: [facility] Address: [address] [place] [address] Performed By: #### 5 7021-8 ####[facility] [id number] [place] [address] [place] Lymphocytes (Bld) [#/Vol] 0.77 10*3/uL Low 1.00-4.00 [facility] Comment on above: Order Comment: Speci men Type: BLOOD SPECIMENOrdering Facility: [facility] Address: [address] [place] [address] Performed By: #### 5 7021-8 ####[facility] CENTERLIA [id number] [place] [address] [place] Lymphocytes/100 WBC (Bld) 20.4 % Normal [facility] Comment on above: Order Comment: Speci men Type: BLOOD SPECIMENOrdering Facility: [facility] Address: [address] [place] [address] Performed By: #### 5 7021-8 ####[facility] SOWMYACLIONCLATASHAA [id number] [place] [address] [place] MCH (RBC) [Entitic mass] 31.7 pg Normal 26.0-34.0 [facility] Comment on above: Order Comment: Speci men Type: BLOOD SPECIMENOrdering Facility: [facility] Address: [address] [place] [address] Performed By: #### 5 7021-8 ####[facility]ILDRENGM [id number] [place] [address] [place] MCHC (RBC) [Mass/Vol] 33.1 g/dL Normal 30.5-36.0 [facility] Comment on above: Order Comment: Speci men Type: BLOOD SPECIMENOrdering Facility: [facility] Address: [address] [place] [address] Performed By: #### 5 7021-8 ####[facility] [id number] [place] [address] [place] MCV (RBC) [Entitic vol] 95.8 fL Normal 80.0-100.0 [facility] Comment on above: Order Comment: Speci men Type: BLOOD SPECIMENOrdering Facility: [facility] Address: [address] [place] [address] Performed By: #### 5 7021-8 ####[facility] MIAMISolo [id number] [place] [address] [place] Monocytes (Bld) [#/Vol] 0.18 10*3/uL Normal <0.87 [facility] Comment on above: Order Comment: Speci men Type: BLOOD SPECIMENOrdering Facility: [facility] Address: [address] [place] [address] Performed By: #### 5 7021-8 ####[facility] [id number] [place] [id number] [place] Monocytes/100 WBC (Bld) 4.8 % Normal [facility] Comment on above: Order Comment: Speci men Type: BLOOD SPECIMENOrdering Facility: [facility] Address: [address] [place] [address] Performed By: #### 5 7021-8 ####[facility] CENTERLIA [id number] [place] [address] [place] Neutrophils (Bld) [#/Vol] 2.76 10*3/uL Normal 1.45-7.50 [facility] Comment on above: Order Comment: Speci men Type: BLOOD SPECIMENOrdering Facility: [facility] Address: [address] [place] [address] Performed By: #### 5 7021-8 ####[facility] MIAMIA [id number] [place] [address] [place] Neutrophils/100 WBC (Bld) 73.2 % Normal [facility] Comment on above: Order Comment: Speci men Type: BLOOD SPECIMENOrdering Facility: [facility] Address: [address] [place] [address] Performed By: #### 5 7021-8 ####[facility] CENTERLIA [id number] [place] [address] [place] Nucleated RBC (Bld) [#/Vol] 10*3/uL Normal <0.01 [facility] Comment on above: Order Comment: Speci men Type: BLOOD SPECIMENOrdering Facility: [facility] Address: [address] [place] [address] Performed By: #### 5 7021-8 ####[facility] MIAMIA [id number] [place] [address] [place] Nucleated RBC/100 WBC (Bld) [Ratio] 0.0 /100 WBC Normal [facility] Comment on above: Order Comment: Speci men Type: BLOOD SPECIMENOrdering Facility: [facility] Address: [address] [place] [address] Performed By: #### 5 7021-8 ####[facility] MICHAELNCPEPE [id number] [place] [address] [place] Platelet mean volume (Bld) [Entitic vol] 8.4 fL Low 9.0-12.7 [facility] Comment on above: Order Comment: Speci men Type: BLOOD SPECIMENOrdering Facility: [facility] Address: [address] [place] [address] Performed By: #### 5 7021-8 ####[facility] SOWMYACLIONCLATASHAA [id number] [place] [address] [place] Platelets (Bld) [#/Vol] 130 10*3/uL Low 150-400 [facility] Comment on above: Order Comment: Speci men Type: BLOOD SPECIMENOrdering Facility: [facility] Address: [address] [place] [address] Performed By: #### 5 7021-8 ####[facility]ENNCLIA [id number] [place] [address] [place] RBC (Bld) [#/Vol] 3.56 10*6/uL Low 4.20-6.00 [facility] Comment on above: Order Comment: Speci men Type: BLOOD SPECIMENOrdering Facility: [facility] Address: [address] [place] [address] Performed By: #### 5 7021-8 ####[facility]CLIA [id number] [place] [address] [place] WBC (Bld) [#/Vol] 3.77 10*3/uL Normal 3.70-11.00 [facility] Comment on above: Order Comment: Speci men Type: BLOOD SPECIMENOrdering Facility: [facility] Address: [address] [place] [address] Performed By: #### 5 7021-8 ####[facility] MILLTOWNCLIA [id number] [place] [address] [place] CBC W Auto Differential pane l (Bld)on 02-23-2024 Basophils (Bld) [#/Vol] 10*3/uL Normal <0.11 [facility] Comment on above: Order Comment: Speci men Type: BLOOD SPECIMENOrdering Facility: [facility] Address: [address] [place] [address] Performed By: #### 5 7021-8 ####[facility] HOSPITALWRILIA [id number] [place] [address] [place] Basophils/100 WBC (Bld) 0.3 % Normal [facility] Comment on above: Order Comment: Speci men Type: BLOOD SPECIMENOrdering Facility: [facility] Address: [address] [place] [address] Performed By: #### 5 7021-8 ####[facility] CENTERLIA [id number] [place] [address] [place] Differential cell count method Nom (Bld) Auto Normal [facility] Comment on above: Order Comment: Speci men Type: BLOOD SPECIMENOrdering Facility: [facility] Address: [address] [place] [address] Performed By: #### 5 7021-8 ####[facility] MILLWNCLIA [id number] [place] [address] [place] Eosinophils (Bld) [#/Vol] 0.03 10*3/uL Normal <0.46 [facility] Comment on above: Order Comment: Speci men Type: BLOOD SPECIMENOrdering Facility: [facility] Address: [address] [place] [address] Performed By: #### 5 7021-8 ####[facility] MILLWNCLIA [id number] [place] [address] [place] Eosinophils/100 WBC (Bld) 0.9 % Normal [facility] Comment on above: Order Comment: Speci men Type: BLOOD SPECIMENOrdering Facility: [facility] Address: [address] [place] [address] Performed By: #### 5 7021-8 ####[facility] [id number] [place] [address] [place] Erythrocyte distribution width (RBC) [Ratio] 17.1 % High 11.5-15.0 [facility] Comment on above: Order Comment: Speci men Type: BLOOD SPECIMENOrdering Facility: [facility] Address: [address] [place] [address] Performed By: #### 5 7021-8 ####[facility] CHILDRENSTANSolo [id number] [place] [address] [place] Hematocrit (Bld) [Volume fraction] 35.7 % Low 39.0-51.0 [facility] Comment on above: Order Comment: Speci men Type: BLOOD SPECIMENOrdering Facility: [facility] Address: [address] [place] [address] Performed By: #### 5 7021-8 ####[facility] CENTERPEPE [id number] [place] [address] [place] Hemoglobin (Bld) [Mass/Vol] 11.8 g/dL Low 13.0-17.0 [facility] Comment on above: Order Comment: Speci men Type: BLOOD SPECIMENOrdering Facility: [facility] Address: [address] [place] [address] Performed By: #### 5 7021-8 ####[facility] CH[facility]DRENNCLI [id number] [place] [address] [place] Immature granulocytes (Bld) [#/Vol] 0.04 10*3/uL Normal <0.10 [facility] Comment on above: Order Comment: Speci men Type: BLOOD SPECIMENOrdering Facility: [facility] Address: [address] [place] [address] Performed By: #### 5 7021-8 ####[facility] [id number] [place] [address] [place] Immature granulocytes/100 WBC (Bld) 1.2 % Normal [facility] Comment on above: Order Comment: Speci men Type: BLOOD SPECIMENOrdering Facility: [facility] Address: [address] [place] [address] Performed By: #### 5 7021-8 ####[facility] [id number] [place] [address] [place] Lymphocytes (Bld) [#/Vol] 0.82 10*3/uL Low 1.00-4.00 [facility] Comment on above: Order Comment: Speci men Type: BLOOD SPECIMENOrdering Facility: [facility] Address: [address] [place] [address] Performed By: #### 5 7021-8 ####[facility] [id number] [place] [address] [place] Lymphocytes/100 WBC (Bld) 25.2 % Normal [facility] Comment on above: Order Comment: Speci men Type: BLOOD SPECIMENOrdering Facility: [facility] Address: [address] [place] [address] Performed By: #### 5 7021-8 ####[facility] [id number] [place] [address] [place] MCH (RBC) [Entitic mass] 31.6 pg Normal 26.0-34.0 [facility] Comment on above: Order Comment: Speci men Type: BLOOD SPECIMENOrdering Facility: [facility] Address: [address] [place] [address] Performed By: #### 5 7021-8 ####[facility] SOWMYAWNCLIA [id number] [place] [address] [place] MCHC (RBC) [Mass/Vol] 33.1 g/dL Normal 30.5-36.0 [facility] Comment on above: Order Comment: Speci men Type: BLOOD SPECIMENOrdering Facility: [facility] Address: [address] [place] [address] Performed By: #### 5 7021-8 ####[facility]DRENNCLIA [id number] [place] [address] [place] MCV (RBC) [Entitic vol] 95.5 fL Normal 80.0-100.0 [facility] Comment on above: Order Comment: Speci men Type: BLOOD SPECIMENOrdering Facility: [facility] Address: [address] [place] [address] Performed By: #### 5 7021-8 ####[facility]DRENNCLIA [id number] [place] [address] [place] Monocytes (Bld) [#/Vol] 0.25 10*3/uL Normal <0.87 [facility] Comment on above: Order Comment: Speci men Type: BLOOD SPECIMENOrdering Facility: [facility] Address: [address] [place] [address] Performed By: #### 5 7021-8 ####[facility]DRENNCLIA [id number] [place] [address] [place] Monocytes/100 WBC (Bld) 7.7 % Normal [facility] Comment on above: Order Comment: Speci men Type: BLOOD SPECIMENOrdering Facility: [facility] Address: [address] [place] [address] Performed By: #### 5 7021-8 ####[facility]DRENNCLI [id number] [place] [address] [place] Neutrophils (Bld) [#/Vol] 2.10 10*3/uL Normal 1.45-7.50 [facility] Comment on above: Order Comment: Speci men Type: BLOOD SPECIMENOrdering Facility: [facility] Address: [address] [place] [address] Performed By: #### 5 7021-8 ####[facility] HOSPITALWRILIA [id number] [place] [address] [place] Neutrophils/100 WBC (Bld) 64.7 % Normal [facility] Comment on above: Order Comment: Speci men Type: BLOOD SPECIMENOrdering Facility: [facility] Address: [address] [place] [address] Performed By: #### 5 7021-8 ####[facility]ILDRENNCA [id number] [place] [address] [place] Nucleated RBC (Bld) [#/Vol] 10*3/uL Normal <0.01 [facility] Comment on above: Order Comment: Speci men Type: BLOOD SPECIMENOrdering Facility: [facility] Address: [address] [place] [address] Performed By: #### 5 7021-8 ####[facility] CENTERLIA [id number] [place] [address] [place] Nucleated RBC/100 WBC (Bld) [Ratio] 0.0 /100 WBC Normal [facility] Comment on above: Order Comment: Speci men Type: BLOOD SPECIMENOrdering Facility: [facility] Address: [address] [place] [address] Performed By: #### 5 7021-8 ####[facility]DRENNCLIA [id number] [place] [address] [place] Platelet mean volume (Bld) [Entitic vol] 8.7 fL Low 9.0-12.7 [facility] Comment on above: Order Comment: Speci men Type: BLOOD SPECIMENOrdering Facility: [facility] Address: [address] [place] [address] Performed By: #### 5 7021-8 ####[facility]DRENNCLIA [id number] [place] [address] [place] Platelets (Bld) [#/Vol] 123 10*3/uL Low 150-400 [facility] Comment on above: Order Comment: Speci men Type: BLOOD SPECIMENOrdering Facility: [facility] Address: [address] [place] [address] Performed By: #### 5 7021-8 ####[facility]DRENNCLIA [id number] [place] [address] [place] RBC (Bld) [#/Vol] 3.74 10*6/uL Low 4.20-6.00 [facility] Comment on above: Order Comment: Speci men Type: BLOOD SPECIMENOrdering Facility: [facility] Address: [address] [place] [address] Performed By: #### 5 7021-8 ####[facility]DRENNCLIA [id number] [place] [address] [place] WBC (Bld) [#/Vol] 3.25 10*3/uL Low 3.70-11.00 [facility] Comment on above: Order Comment: Speci men Type: BLOOD SPECIMENOrdering Facility: [facility] Address: [address] [place] [address] Performed By: #### 5 7021-8 ####[facility] [id number] [place] [address] [place] CNOVSPon 02-23-2024 CNOVSP Normal [facility] CBC W Auto Differential pane l (Bld)on 02-09-2024 Anisocytosis Ql (Bld) Present Normal [facility] Comment on above: Order Comment: Speci men Type: BLOOD SPECIMENOrdering Facility: [facility] Address: [address] [place] [address] Performed By: #### 5 7021-8 ####[facility] DIAZ MILLTOWNCLIA [id number] [address] LABORATORYCLIA [id number] [place] [address] [place] [facility] Basophils (Bld) [#/Vol] 0.03 10*3/uL Normal <0.11 [facility] Comment on above: Order Comment: Speci men Type: BLOOD SPECIMENOrdering Facility: [facility] Address: [address] [place] [address] Performed By: #### 5 7021-8 ####[facility] MILLTOWNCLIA [id number] [address] LABORATORYCLIA [id number] [address] [place] Basophils/100 WBC (Bld) 1.0 % Normal [facility] Comment on above: Order Comment: Speci men Type: BLOOD SPECIMENOrdering Facility: [facility] Address: [address] [place] [address] Performed By: #### 5 7021-8 ####[facility] DIAZ MILLTOWNCLIA [id number] [address] LABORATORYCLIA [id number] [place] [address] [place] Dacrocytes LM Ql (Bld) Few Normal [facility] Comment on above: Order Comment: Speci men Type: BLOOD SPECIMENOrdering Facility: [facility] Address: [address] [place] [address] Performed By: #### 5 7021-8 ####[facility] DIAZ MILLTOWNCLIA [id number] [address] LABORATORYCLIA [id number] [place] [address] [place] Differential cell count method Nom (Bld) Manual Normal [facility] Comment on above: Order Comment: Speci men Type: BLOOD SPECIMENOrdering Facility: [facility] Address: [address] [place] [address] Performed By: #### 5 7021-8 ####[facility] MILLTOWNCLIA [id number] [address] LABORATORYCLIA [id number] [place] [address] [place] Eosinophils (Bld) [#/Vol] 0.09 10*3/uL Normal <0.46 [facility] Comment on above: Order Comment: Speci men Type: BLOOD SPECIMENOrdering Facility: [facility] Address: [address] [place] [address] Performed By: #### 5 7021-8 ####[facility]ENNCLIA [id number] [address] LABORATORYCLIA [id number] [place] [address] [place] Eosinophils/100 WBC (Bld) 3.0 % Normal [facility] Comment on above: Order Comment: Speci men Type: BLOOD SPECIMENOrdering Facility: [facility] Address: [address] [place] [address] Performed By: #### 5 7021-8 ####[facility]ENNCLIA [id number] [address] LABORATORYCLIA [id number] [place] [address] [place] Erythrocyte distribution width (RBC) [Ratio] 15.8 % High 11.5-15.0 [facility] Comment on above: Order Comment: Speci men Type: BLOOD SPECIMENOrdering Facility: [facility] Address: [address] [place] [address] Performed By: #### 5 7021-8 ####[facility] TAMIAWNCLIA [id number] [address] LABORATORYCLIA [id number] [place] [address] [place] Hematocrit (Bld) [Volume fraction] 31.8 % Low 39.0-51.0 [facility] Comment on above: Order Comment: Speci men Type: BLOOD SPECIMENOrdering Facility: [facility] Address: [address] [place] [address] Performed By: #### 5 7021-8 ####[facility] SOWMYAWSTANLIA [id number] [address] LABORATORYCLIA [id number] [place] [address] [place] Hemoglobin (Bld) [Mass/Vol] 10.8 g/dL Low 13.0-17.0 [facility] Comment on above: Order Comment: Speci men Type: BLOOD SPECIMENOrdering Facility: [facility] Address: [address] [place] [address] Performed By: #### 5 7021-8 ####[facility]ITALWNCLIA [id number] [address] LABORATORYCLIA [id number] [place] [address] [place] Lymphocytes (Bld) [#/Vol] 0.96 10*3/uL Low 1.00-4.00 [facility] Comment on above: Order Comment: Speci men Type: BLOOD SPECIMENOrdering Facility: [facility] Address: [address] [place] [address] Performed By: #### 5 7021-8 ####[facility] MILLTOWNCLIA [id number] [address] LABORATORYCLIA [id number] [address] STATES [facility] Lymphocytes/100 WBC (Bld) 32.0 % Normal [facility] Comment on above: Order Comment: Speci men Type: BLOOD SPECIMENOrdering Facility: [facility] Address: [address] [place] [address] Performed By: #### 5 7021-8 ####[facility] MILLTOWNCLIA [id number] [address] LABORATORYCLIA [id number] [place] [address] [place] MCH (RBC) [Entitic mass] 31.0 pg Normal 26.0-34.0 [facility] Comment on above: Order Comment: Speci men Type: BLOOD SPECIMENOrdering Facility: [facility] Address: [address] [place] [address] Performed By: #### 5 7021-8 ####[facility] MILLTOWNCLIA [id number] [address] LABORATORYCLIA [id number] [place] [address] [place] MCHC (RBC) [Mass/Vol] 34.0 g/dL Normal 30.5-36.0 [facility] Comment on above: Order Comment: Speci men Type: BLOOD SPECIMENOrdering Facility: [facility] Address: [address] [place] [address] Performed By: #### 5 7021-8 ####[facility] MILLTOWNCLIA [id number] [address] LABORATORYCLIA [id number] [address] MCV (RBC) [Entitic vol] 91.4 fL Normal 80.0-100.0 [facility] Comment on above: Order Comment: Speci men Type: BLOOD SPECIMENOrdering Facility: [facility] Address: [address] [place] [address] Performed By: #### 5 7021-8 ####[facility] HOSPITALWRILIA [id number] [address] LABORATORYCLIA [id number] [place] [address] [place] Monocytes (Bld) [#/Vol] 0.15 10*3/uL Normal <0.87 [facility] Comment on above: Order Comment: Speci men Type: BLOOD SPECIMENOrdering Facility: [facility] Address: [address] [place] [address] Performed By: #### 5 7021-8 ####[facility]OSPITALWRILIA [id number] [address] LABORATORYCLIA [id number] [address] [place] Monocytes/100 WBC (Bld) 5.0 % Normal [facility] Comment on above: Order Comment: Speci men Type: BLOOD SPECIMENOrdering Facility: [facility] Address: [address] [place] [address] Performed By: #### 5 7021-8 ####[facility] MEDICAL CENTERLIA [id number] [address] LABORATORYCLIA [id number] [address] OF [facility] MYELO% 1.0 % Normal [facility] Comment on above: Order Comment: Speci men Type: BLOOD SPECIMENOrdering Facility: [facility] Address: [address] [place] [address] Performed By: #### 5 7021-8 ####[facility] MILLTOWNCLIA [id number] [address] LABORATORYCLIA [id number] [place] [address] [place] Neutrophils (Bld) [#/Vol] 1.65 10*3/uL Normal 1.45-7.50 [facility] Comment on above: Order Comment: Speci men Type: BLOOD SPECIMENOrdering Facility: [facility] Address: [address] [place] [address] Performed By: #### 5 7021-8 ####[facility]ITALTOWNCLIA [id number] [address] LABORATORYCLIA [id number] [place] [address] [place] Neutrophils/100 WBC (Bld) 57.0 % Normal [facility] Comment on above: Order Comment: Speci men Type: BLOOD SPECIMENOrdering Facility: [facility] Address: [address] [place] [address] Performed By: #### 5 7021-8 ####[facility]OSPITALWNCLIA [id number] [address] LABORATORYCLIA [id number] [place] [address] [place] Nucleated RBC (Bld) [#/Vol] 10*3/uL Normal <0.01 [facility] Comment on above: Order Comment: Speci men Type: BLOOD SPECIMENOrdering Facility: [facility] Address: [address] [place] [address] Performed By: #### 5 7021-8 ####[facility] MILLTOWNCLIA [id number] [address] LABORATORYCLIA [id number] [place] [address] [place] Nucleated RBC/100 WBC (Bld) [Ratio] 0.0 /100 WBC Normal [facility] Comment on above: Order Comment: Speci men Type: BLOOD SPECIMENOrdering Facility: [facility] Address: [address] [place] [address] Performed By: #### 5 7021-8 ####[facility]OSPITALWRILIA [id number] [address] LABORATORYCLIA [id number] [place] [address] [place] Ovalocytes LM Ql (Bld) Few Normal [facility] Comment on above: Order Comment: Speci men Type: BLOOD SPECIMENOrdering Facility: [facility] Address: [address] [place] [address] Performed By: #### 5 7021-8 ####[facility] MIAMIA [id number] [address] LABORATORYIA [id number] [place] [address] [place] Platelet mean volume (Bld) [Entitic vol] 8.7 fL Low 9.0-12.7 [facility] Comment on above: Order Comment: Speci men Type: BLOOD SPECIMENOrdering Facility: [facility] Address: [address] [place] [address] Performed By: #### 5 7021-8 ####[facility] MIAMIA [id number] [address] LABORATORYIA [id number] [place] [address] [place] Platelets (Bld) [#/Vol] 129 10*3/uL Low 150-400 [facility] Comment on above: Order Comment: Speci men Type: BLOOD SPECIMENOrdering Facility: [facility] Address: [address] [place] [address] Performed By: #### 5 7021-8 ####[facility] SOWMYAYOLILIA [id number] [address] LABORATORYCLIA [id number] [place] [address] [place] Platelets Estimate (Bld) [#/Vol] Decreased Normal [facility] Comment on above: Order Comment: Speci men Type: BLOOD SPECIMENOrdering Facility: [facility] Address: [address] [place] [address] Performed By: #### 5 7021-8 ####[facility] MIAMIA [id number] [address] LABORATORYCLIA [id number] [place] [address] [place] RBC (Bld) [#/Vol] 3.48 10*6/uL Low 4.20-6.00 [facility] Comment on above: Order Comment: Speci men Type: BLOOD SPECIMENOrdering Facility: [facility] Address: [address] [place] [address] Performed By: #### 5 7021-8 ####[facility] MEDICAL CENTERLIA [id number] [address] LABORATORYCLIA [id number] [place] [address] [place] RED CELL MORPH Reviewed: see result s of individual morphologies Normal [facility] Comment on above: Order Comment: Speci men Type: BLOOD SPECIMENOrdering Facility: [facility] Address: [address] [place] [address] Performed By: #### 5 7021-8 ####[facility]DRENNCLIA [id number] [address] LABORATORYCLIA [id number] [place] [address] [place] Variant lymphocytes/100 WBC (Bld) 1.0 % Normal [facility] Comment on above: Order Comment: Speci men Type: BLOOD SPECIMENOrdering Facility: [facility] Address: [address] [place] [address] Performed By: #### 5 7021-8 ####[facility] MED[facility] CENTERLIA [id number] [address] LABORATORYCLIA [id number] [place] [address] [place] WBC (Bld) [#/Vol] 2.90 10*3/uL Low 3.70-11.00 [facility] Comment on above: Order Comment: Speci men Type: BLOOD SPECIMENOrdering Facility: [facility] Address: [address] [place] [address] Performed By: #### 5 7021-8 ####[facility]OSPITALWRILIA [id number] [address] LABORATORYCLIA [id number] [place] [address] [place] CBC W Auto Differential pane l (Bld)on 01-26-2024 Basophils (Bld) [#/Vol] 10*3/uL Normal <0.11 [facility] Comment on above: Order Comment: Speci men Type: BLOOD SPECIMENOrdering Facility: [facility] Address: [address] [place] [address] Performed By: #### 5 7021-8 ####[facility] MIAMIA [id number] [place] [address] [place] Basophils/100 WBC (Bld) 0.0 % [facility] Comment on above: Order Comment: Speci men Type: BLOOD SPECIMENOrdering Facility: [facility] Address: [address] [place] [address] Performed By: #### 5 7021-8 ####[facility] SOWMYACLIONCLIA [id number] [place] [address] [place] Differential cell count method Nom (Bld) Auto Normal [facility] Comment on above: Order Comment: Speci men Type: BLOOD SPECIMENOrdering Facility: [facility] Address: [address] [place] [address] Performed By: #### 5 7021-8 ####[facility] CHILDRENSTANLIA [id number] [place] [address] [place] Eosinophils (Bld) [#/Vol] 10*3/uL Normal <0.46 [facility] Comment on above: Order Comment: Speci men Type: BLOOD SPECIMENOrdering Facility: [facility] Address: [address] [place] [address] Performed By: #### 5 7021-8 ####[facility] MIAMIA [id number] [place] [address] [place] Eosinophils/100 WBC (Bld) 0.3 % Normal [facility] Comment on above: Order Comment: Speci men Type: BLOOD SPECIMENOrdering Facility: [facility] Address: [address] [place] [address] Performed By: #### 5 7021-8 ####[facility] CHILDRENSTANLIA [id number] [place] [address] [place] Erythrocyte distribution width (RBC) [Ratio] 17.8 % High 11.5-15.0 [facility] Comment on above: Order Comment: Speci men Type: BLOOD SPECIMENOrdering Facility: [facility] Address: [address] [place] [address] Performed By: #### 5 7021-8 ####[facility] CHILDRENNCLIA [id number] [place] [id number] [place] Hematocrit (Bld) [Volume fraction] 40.4 % Normal 39.0-51.0 [facility] Comment on above: Order Comment: Speci men Type: BLOOD SPECIMENOrdering Facility: [facility] Address: [address] [place] [address] Performed By: #### 5 7021-8 ####[facility] CHILDRENSTANSolo [id number] [place] [address] [place] Hemoglobin (Bld) [Mass/Vol] 13.3 g/dL Normal 13.0-17.0 [facility] Comment on above: Order Comment: Speci men Type: BLOOD SPECIMENOrdering Facility: [facility] Address: [address] [place] [address] Performed By: #### 5 7021-8 ####[facility] CHILDRENSTANSolo [id number] [place] [address] [place] Immature granulocytes (Bld) [#/Vol] 0.18 10*3/uL High <0.10 [facility] Comment on above: Order Comment: Speci men Type: BLOOD SPECIMENOrdering Facility: [facility] Address: [address] [place] [address] Performed By: #### 5 7021-8 ####[facility] CHILDRENGMA [id number] [place] [address] [place] Immature granulocytes/100 WBC (Bld) 4.8 % Normal [facility] Comment on above: Order Comment: Speci men Type: BLOOD SPECIMENOrdering Facility: [facility] Address: [address] [place] [address] Performed By: #### 5 7021-8 ####[facility] CHILDRENNCLIA [id number] [place] [address] [place] Lymphocytes (Bld) [#/Vol] 0.36 10*3/uL Low 1.00-4.00 [facility] Comment on above: Order Comment: Speci men Type: BLOOD SPECIMENOrdering Facility: [facility] Address: [address] [place] [address] Performed By: #### 5 7021-8 ####[facility] MICHAELNCPEPE [id number] [place] [address] [place] Lymphocytes/100 WBC (Bld) 9.5 % Normal [facility] Comment on above: Order Comment: Speci men Type: BLOOD SPECIMENOrdering Facility: [facility] Address: [address] [place] [address] Performed By: #### 5 7021-8 ####[facility] CHILDRENNCPEPE [id number] [place] [address] [place] MCH (RBC) [Entitic mass] 30.8 pg Normal 26.0-34.0 [facility] Comment on above: Order Comment: Speci men Type: BLOOD SPECIMENOrdering Facility: [facility] Address: [address] [place] [address] Performed By: #### 5 7021-8 ####[facility] CHILDRENNCLIA [id number] [place] [address] [place] MCHC (RBC) [Mass/Vol] 32.9 g/dL Normal 30.5-36.0 [facility] Comment on above: Order Comment: Speci men Type: BLOOD SPECIMENOrdering Facility: [facility] Address: [address] [place] [address] Performed By: #### 5 7021-8 ####[facility] CHILDRENNCLIA [id number] [place] [address] [place] MCV (RBC) [Entitic vol] 93.5 fL Normal 80.0-100.0 [facility] Comment on above: Order Comment: Speci men Type: BLOOD SPECIMENOrdering Facility: [facility] Address: [address] [place] [address] Performed By: #### 5 7021-8 ####[facility] MILLTOWNCLIA [id number] [place] [address] [place] Monocytes (Bld) [#/Vol] 0.27 10*3/uL Normal <0.87 [facility] Comment on above: Order Comment: Speci men Type: BLOOD SPECIMENOrdering Facility: [facility] Address: [address] [place] [address] Performed By: #### 5 7021-8 ####[facility] CENTERLIA [id number] [place] [address] [place] Monocytes/100 WBC (Bld) 7.1 % Normal [facility] Comment on above: Order Comment: Speci men Type: BLOOD SPECIMENOrdering Facility: [facility] Address: [address] [place] [address] Performed By: #### 5 7021-8 ####[facility] MED[facility] CENTERLIA [id number] [place] [address] [place] Neutrophils (Bld) [#/Vol] 2.96 10*3/uL Normal 1.45-7.50 [facility] Comment on above: Order Comment: Speci men Type: BLOOD SPECIMENOrdering Facility: [facility] Address: [address] [place] [address] Performed By: #### 5 7021-8 ####[facility] MILLWNCLIA [id number] [place] [address] [place] Neutrophils/100 WBC (Bld) 78.3 % Normal [facility] Comment on above: Order Comment: Speci men Type: BLOOD SPECIMENOrdering Facility: [facility] Address: [address] [place] [address] Performed By: #### 5 7021-8 ####[facility]DRENNCLIA [id number] [place] [address] [place] Nucleated RBC (Bld) [#/Vol] 0.13 10*3/uL High <0.01 [facility] Comment on above: Order Comment: Speci men Type: BLOOD SPECIMENOrdering Facility: [facility] Address: [address] [place] [address] Performed By: #### 5 7021-8 ####[facility] CHILDRENSTANPEPE [id number] [place] [address] [place] Nucleated RBC/100 WBC (Bld) [Ratio] 3.4 /100 WBC Normal [facility] Comment on above: Order Comment: Speci men Type: BLOOD SPECIMENOrdering Facility: [facility] Address: [address] [place] [address] Performed By: #### 5 7021-8 ####[facility] CHILDRENSTANSolo [id number] [place] [address] [place] Platelet mean volume (Bld) [Entitic vol] 8.6 fL Low 9.0-12.7 [facility] Comment on above: Order Comment: Speci men Type: BLOOD SPECIMENOrdering Facility: [facility] Address: [address] [place] [address] Performed By: #### 5 7021-8 ####[facility] CHILDRENGMA [id number] [place] [address] [place] Platelets (Bld) [#/Vol] 111 10*3/uL Low 150-400 [facility] Comment on above: Order Comment: Speci men Type: BLOOD SPECIMENOrdering Facility: [facility] Address: [address] [place] [address] Performed By: #### 5 7021-8 ####[facility] CHILDRENNCLIA [id number] [place] [address] [place] RBC (Bld) [#/Vol] 4.32 10*6/uL Normal 4.20-6.00 [facility] Comment on above: Order Comment: Speci men Type: BLOOD SPECIMENOrdering Facility: [facility] Address: [address] [place] [address] Performed By: #### 5 7021-8 ####[facility] HOSPITALWNCLIA [id number] [place] [address] [place] WBC (Bld) [#/Vol] 3.78 10*3/uL Normal 3.70-11.00 [facility] Comment on above: Order Comment: Speci men Type: BLOOD SPECIMENOrdering Facility: [facility] Address: [address] [place] [address] Performed By: #### 5 7021-8 ####[facility] [id number] [place] [address] [place] Comprehensive metabolic 2000 panelon 01-26-2024 Albumin [Mass/Vol] 4.0 g/dL Normal 3.9-4.9 [facility] Comment on above: Order Comment: Speci men Type: BLOOD SPECIMENOrdering Facility: [facility] Address: [address] [place] [address] Performed By: #### 2 4323-8 ####[facility]ILDRENNCLIA [id number] [place] [address] [place] ALP [Catalytic activity/Vol] 114 U/L High 38-113 [facility] Comment on above: Order Comment: Speci men Type: BLOOD SPECIMENOrdering Facility: [facility] Address: [address] [place] [address] Performed By: #### 2 4323-8 ####[facility] CHILDRENNCLIA [id number] [place] [address] [place] ALT [Catalytic activity/Vol] 5 U/L Low 10-54 [facility] Comment on above: Order Comment: Speci men Type: BLOOD SPECIMENOrdering Facility: [facility] Address: [address] [place] [address] Performed By: #### 2 4323-8 ####[facility] DIAZ MILLTOWNCLIA [id number] [place] [address] [place] Anion gap [Moles/Vol] 12 mmol/L Normal 8-15 [facility] Comment on above: Order Comment: Speci men Type: BLOOD SPECIMENOrdering Facility: [facility] Address: [address] [place] [address] Performed By: #### 2 4323-8 ####[facility] MILLTOWNCLIA [id number] [place] [address] [place] AST [Catalytic activity/Vol] 11 U/L Low 14-40 [facility] Comment on above: Order Comment: Speci men Type: BLOOD SPECIMENOrdering Facility: [facility] Address: [address] [place] [address] Performed By: #### 2 4323-8 ####[facility] MILLTOWNCLIA [id number] [place] [address] [place] Bilirubin [Mass/Vol] 1.3 mg/dL Normal 0.2-1.3 [facility] Comment on above: Order Comment: Speci men Type: BLOOD SPECIMENOrdering Facility: [facility] Address: [address] [place] [address] Performed By: #### 2 4323-8 ####[facility] MILLTOWNCLIA [id number] [place] [address] [place] Calcium [Mass/Vol] 9.9 mg/dL Normal 8.5-10.2 [facility] Comment on above: Order Comment: Speci men Type: BLOOD SPECIMENOrdering Facility: [facility] Address: [address] [place] [address] Performed By: #### 2 4323-8 ####[facility] MILLTOWNCLIA [id number] [place] [address] [place] Chloride [Moles/Vol] 93 mmol/L Low 98-107 [facility] Comment on above: Order Comment: Speci men Type: BLOOD SPECIMENOrdering Facility: [facility] Address: [address] [place] [address] Performed By: #### 2 4323-8 ####[facility] [id number] [place] [address] [place] CO2 [Moles/Vol] 26 mmol/L Normal 22-30 [facility] Comment on above: Order Comment: Speci men Type: BLOOD SPECIMENOrdering Facility: [facility] Address: [address] [place] [address] Performed By: #### 2 4323-8 ####[facility] [id number] [place] [address] [place] Creatinine [Mass/Vol] 0.71 mg/dL Low 0.73-1.22 [facility] Comment on above: Order Comment: Speci men Type: BLOOD SPECIMENOrdering Facility: [facility] Address: [address] [place] [address] Performed By: #### 2 4323-8 ####[facility] [id number] [place] [address] [place] Creatinine and Glomerular filtration rate.predicted panel (S/P/Bld) 93 mL/min/1.73m??? Normal >=60 [facility] Comment on above: Order Comment: Speci men Type: BLOOD SPECIMENOrdering Facility: [facility] Address: [address] [place] [address] Result Comment: Mellisa mated Glomerular Filtration Rate (eGFR) is calculated using the 2020 CKD-EPI creatinine equation. This equation utilizes serum creatinine, sex, and age as parameters. The creatinine assay has traceable calibration to isotope dilution-mass spectrometry. Refer to KDIGO guidelines for clinical interpretation. In patients with unstable renal function, e.g. those with acute kidney injury, the eGFR may not accurately reflect actual GFR. Performed By: #### 2 4323-8 ####[facility] [id number] [place] [address] [place] Glucose [Mass/Vol] 204 mg/dL High 74-99 [facility] Comment on above: Order Comment: Riddhi llanos Type: BLOOD SPECIMENOrdering Facility: [facility] Address: [address] [place] [address] Result Comment: The [place] Diabetes Association (ADA) provides guidance for cutoff values for fasting glucose and random glucose. The ADA defines fasting as no caloric intake for at least 8 hours. Fasting plasma glucose results between 100 to 125 mg/dL indicate increased risk for diabetes (prediabetes).Fasting plasma glucose results greater than or equal to 126 mg/dL meet the criteria for diagnosis of diabetes. In the absence of unequivocal hyperglycemia, results should be confirmed by repeat testing. In a patient with classic symptoms of hyperglycemia or hyperglycemic crisis, random plasma glucose results greater than or equal to 200 mg/dL meet the criteria for diagnosis of diabetes.Reference: Standards of Medical Care in Diabetes 2016, [place] [employer]. Diabetes Care. 2016.39(Suppl 1). Performed By: #### 2 4323-8 ####[facility]ENNCA [id number] [place] [address] [place] Potassium [Moles/Vol] 4.1 mmol/L Normal 3.7-5.1 [facility] Comment on above: Order Comment: Riddhi llanos Type: BLOOD SPECIMENOrdering Facility: [facility] Address: [address] [place] [address] Performed By: #### 2 4323-8 ####[facility] [id number] [place] [address] [place] Protein [Mass/Vol] 6.2 g/dL Low 6.3-8.0 [facility] Comment on above: Order Comment: Riddhi llanos Type: BLOOD SPECIMENOrdering Facility: [facility] Address: [address] [place] [address] Performed By: #### 2 4323-8 ####[facility]CL[facility] [id number] [place] [address] [place] Sodium [Moles/Vol] 131 mmol/L Low 136-144 [facility] Comment on above: Order Comment: Speci men Type: BLOOD SPECIMENOrdering Facility: [facility] Address: [address] [place] [address] Performed By: #### 2 4323-8 ####[facility] [id number] [place] [address] [place] Urea nitrogen [Mass/Vol] 22 mg/dL Normal 9-24 [facility] Comment on above: Order Comment: Speci men Type: BLOOD SPECIMENOrdering Facility: [facility] Address: [address] [place] [address] Performed By: #### 2 4323-8 ####[facility]ENNCLIA [id number] [place] [address] [place] Ferritin SerPl-ncon 2023 Ferritin [Mass/Vol] 2884.0 ng/mL High 30.3-565.7 [facility] Comment on above: Order Comment: Speci men Type: BLOOD SPECIMENOrdering Facility: [facility] Address: [address] [place] [address] Performed By: #### 2 276-4, 05787-9 ####[facility] LABCLIA [id number] [place] [address] [place] Iron and Iron binding capaci ty panelon 01-26-2024 Iron [Mass/Vol] 33 ug/dL Low 41-186 [facility] Comment on above: Order Comment: Speci men Type: BLOOD SPECIMENOrdering Facility: [facility] Address: [address] [place] [address] Performed By: #### 2 276-4, 75402-6 ####[facility] LABCLIA [id number] [place] [id number] [place] Iron binding capacity [Mass/Vol] 232 ug/dL Normal 232-386 [facility] Comment on above: Order Comment: Speci men Type: BLOOD SPECIMENOrdering Facility: [facility] Address: [address] [place] [address] Performed By: #### 2 276-4, 80047-0 ####[facility] LABCLIA [id number] [place] [id number] [place] Iron/TIBC [Molar ratio] 14.2 % Low 15.0-57.0 [facility] Comment on above: Order Comment: Speci men Type: BLOOD SPECIMENOrdering Facility: [facility] Address: [address] [place] [address] Performed By: #### 2 276-4, 47956-1 ####[facility] LABCLIA [id number] [place] [id number] [place] CBC W Auto Differential pane l (Bld)on 01-12-2024 Anisocytosis Ql (Bld) Present Normal [facility] Comment on above: Order Comment: Speci men Type: BLOOD SPECIMENOrdering Facility: [facility] Address: [address] [place] [address] Performed By: #### 5 7021-8 ####[facility] MED[facility] CENTERLIA [id number] [address] LABORATORYCLIA [id number] [place] [address] [place] Basophils (Bld) [#/Vol] 0.03 10*3/uL Normal <0.11 [facility] Comment on above: Order Comment: Speci men Type: BLOOD SPECIMENOrdering Facility: [facility] Address: [address] [place] [address] Performed By: #### 5 7021-8 ####[facility] MILLTOWNCLIA [id number] [address] LABORATORYCLIA [id number] [place] [address] [place] Basophils/100 WBC (Bld) 1.0 % Normal [facility] Comment on above: Order Comment: Speci men Type: BLOOD SPECIMENOrdering Facility: [facility] Address: [address] [place] [address] Performed By: #### 5 7021-8 ####[facility] MILLTOWNCLIA [id number] [address] LABORATORYCLIA [id number] [place] [address] [place] Dacrocytes LM Ql (Bld) Few Normal Cl [facility] Comment on above: Order Comment: Speci men Type: BLOOD SPECIMENOrdering Facility: [facility] Address: [address] [place] [address] Performed By: #### 5 7021-8 ####[facility]PITALWNCLIA [id number] [address] LABORATORYCLIA [id number] [place] [address] [place] Differential cell count method Nom (Bld) Manual Normal [facility] Comment on above: Order Comment: Speci men Type: BLOOD SPECIMENOrdering Facility: [facility] Address: [address] [place] [address] Performed By: #### 5 7021-8 ####[facility]PITALWNCLIA [id number] [address] LABORATORYCLIA [id number] [place] [address] [place] Eosinophils (Bld) [#/Vol] 0.00 10*3/uL Normal <0.46 [facility] Comment on above: Order Comment: Speci men Type: BLOOD SPECIMENOrdering Facility: [facility] Address: [address] [place] [address] Performed By: #### 5 7021-8 ####[facility] MED[facility] CENTERLIA [id number] [address] LABORATORYCLIA [id number] [place] [address] [place] Eosinophils/100 WBC (Bld) 0.0 % Normal [facility] Comment on above: Order Comment: Speci men Type: BLOOD SPECIMENOrdering Facility: [facility] Address: [address] [place] [address] Performed By: #### 5 7021-8 ####[facility] [id number] [address] [facility]ORYNORTHWESTERN [facility] [id number] [place] [address] [place] Erythrocyte distribution width (RBC) [Ratio] 16.2 % High 11.5-15.0 [facility] Comment on above: Order Comment: Speci men Type: BLOOD SPECIMENOrdering Facility: [facility] Address: [address] [place] [address] Performed By: #### 5 7021-8 ####[facility] MIAMIA [id number] [address] LABORATORYIA [id number] [place] [address] [place] Hematocrit (Bld) [Volume fraction] 30.9 % Low 39.0-51.0 [facility] Comment on above: Order Comment: Speci men Type: BLOOD SPECIMENOrdering Facility: [facility] Address: [address] [place] [address] Performed By: #### 5 7021-8 ####[facility] MILLTOWNCLIA [id number] [address] LABORATORYCLIA [id number] [place] [address] [place] Hemoglobin (Bld) [Mass/Vol] 10.2 g/dL Low 13.0-17.0 [facility] Comment on above: Order Comment: Speci men Type: BLOOD SPECIMENOrdering Facility: [facility] Address: [address] [place] [address] Performed By: #### 5 7021-8 ####[facility] HOSPITALWSTANLIA [id number] [address] LABORATORYCLIA [id number] [place] [address] [place] Lymphocytes (Bld) [#/Vol] 0.52 10*3/uL Low 1.00-4.00 [facility] Comment on above: Order Comment: Speci men Type: BLOOD SPECIMENOrdering Facility: [facility] Address: [address] [place] [address] Performed By: #### 5 7021-8 ####[facility] HOSPITALBLASWNCLIA [id number] [address] LABORATORYCLIA [id number] [place] [address] [place] Lymphocytes/100 WBC (Bld) 15.0 % Normal [facility] Comment on above: Order Comment: Speci men Type: BLOOD SPECIMENOrdering Facility: [facility] Address: [address] [place] [address] Performed By: #### 5 7021-8 ####[facility] HOSPITALTOWNCLIA [id number] [address] LABORATORYCLIA [id number] [address] STATES [facility] MCH (RBC) [Entitic mass] 30.4 pg Normal 26.0-34.0 [facility] Comment on above: Order Comment: Speci men Type: BLOOD SPECIMENOrdering Facility: [facility] Address: [address] [place] [address] Performed By: #### 5 7021-8 ####[facility] HOSPITALWRILIA [id number] [address] LABORATORYCLIA [id number] [place] [address] [place] MCHC (RBC) [Mass/Vol] 33.0 g/dL Normal 30.5-36.0 [facility] Comment on above: Order Comment: Speci men Type: BLOOD SPECIMENOrdering Facility: [facility] Address: [address] [place] [address] Performed By: #### 5 7021-8 ####[facility] HOSPITALWRILIA [id number] [address] LABORATORYCLIA [id number] [address] MCV (RBC) [Entitic vol] 92.0 fL Normal 80.0-100.0 [facility] Comment on above: Order Comment: Speci men Type: BLOOD SPECIMENOrdering Facility: [facility] Address: [address] [place] [address] Performed By: #### 5 7021-8 ####[facility] MIAMIA [id number] [address] LABORATORYCLIA [id number] [address] OF [facility] Metamyelocytes/100 WBC (Bld) 1.0 % Normal [facility] Comment on above: Order Comment: Speci men Type: BLOOD SPECIMENOrdering Facility: [facility] Address: [address] [place] [address] Performed By: #### 5 7021-8 ####[facility] MILLTOWNCLIA [id number] [address] LABORATORYCLIA [id number] [place] [address] [place] Monocytes (Bld) [#/Vol] 0.17 10*3/uL Normal <0.87 [facility] Comment on above: Order Comment: Speci men Type: BLOOD SPECIMENOrdering Facility: [facility] Address: [address] [place] [address] Performed By: #### 5 7021-8 ####[facility] CENTERLIA [id number] [address] LABORATORYCLIA [id number] [place] [address] [place] Monocytes/100 WBC (Bld) 5.0 % Normal [facility] Comment on above: Order Comment: Speci men Type: BLOOD SPECIMENOrdering Facility: [facility] Address: [address] [place] [address] Performed By: #### 5 7021-8 ####[facility]OSPITALWNCLIA [id number] [address] LABORATORYCLIA [id number] [place] [address] [place] MYELO% 1.0 % Normal [facility] Comment on above: Order Comment: Speci men Type: BLOOD SPECIMENOrdering Facility: [facility] Address: [address] [place] [address] Performed By: #### 5 7021-8 ####[facility]OSPITALTOWNCLIA [id number] [address] LABORATORYCLIA [id number] [place] [address] [place] Neutrophils (Bld) [#/Vol] 2.66 10*3/uL Normal 1.45-7.50 [facility] Comment on above: Order Comment: Speci men Type: BLOOD SPECIMENOrdering Facility: [facility] Address: [address] [place] [address] Performed By: #### 5 7021-8 ####[facility] MILLTOWNCLIA [id number] [address] LABORATORYCLIA [id number] [place] [address] [place] Neutrophils/100 WBC (Bld) 77.0 % Normal [facility] Comment on above: Order Comment: Speci men Type: BLOOD SPECIMENOrdering Facility: [facility] Address: [address] [place] [address] Performed By: #### 5 7021-8 ####[facility] MILLTOWNCLIA [id number] [address] LABORATORYCLIA [id number] [place] [address] [place] Nucleated RBC (Bld) [#/Vol] 10*3/uL Normal <0.01 [facility] Comment on above: Order Comment: Speci men Type: BLOOD SPECIMENOrdering Facility: [facility] Address: [address] [place] [address] Performed By: #### 5 7021-8 ####[facility] MILLTOWNCLIA [id number] [address] LABORATORYCLIA [id number] [place] [address] [place] Nucleated RBC/100 WBC (Bld) [Ratio] 0.0 /100 WBC Normal [facility] Comment on above: Order Comment: Speci men Type: BLOOD SPECIMENOrdering Facility: [facility] Address: [address] [place] [address] Performed By: #### 5 7021-8 ####[facility] SOWMYATOWNCLIA [id number] [address] LABORATORYCLIA [id number] [place] [address] [place] Ovalocytes LM Ql (Bld) Few Normal Cl [facility] Comment on above: Order Comment: Speci men Type: BLOOD SPECIMENOrdering Facility: [facility] Address: [address] [place] [address] Performed By: #### 5 7021-8 ####[facility]ENNCLIA [id number] [address] LABORATORYCLIA [id number] [place] [address] [place] Platelet mean volume (Bld) [Entitic vol] 8.0 fL Low 9.0-12.7 [facility] Comment on above: Order Comment: Speci men Type: BLOOD SPECIMENOrdering Facility: [facility] Address: [address] [place] [address] Performed By: #### 5 7021-8 ####[facility] SOWMYATOWNCLIA [id number] [address] LABORATORYCLIA [id number] [place] [address] [place] Platelets (Bld) [#/Vol] 137 10*3/uL Low 150-400 [facility] Comment on above: Order Comment: Speci men Type: BLOOD SPECIMENOrdering Facility: [facility] Address: [address] [place] [address] Performed By: #### 5 7021-8 ####[facility] MILLTOWNCLIA [id number] [address] LABORATORYCLIA [id number] [place] [address] [place] Platelets Estimate (Bld) [#/Vol] Decreased Normal [facility] Comment on above: Order Comment: Speci men Type: BLOOD SPECIMENOrdering Facility: [facility] Address: [address] [place] [address] Performed By: #### 5 7021-8 ####[facility] CENTERLIA [id number] [address] LABORATORYCLIA [id number] [place] [address] [place] RBC (Bld) [#/Vol] 3.36 10*6/uL Low 4.20-6.00 [facility] Comment on above: Order Comment: Speci men Type: BLOOD SPECIMENOrdering Facility: [facility] Address: [address] [place] [address] Performed By: #### 5 7021-8 ####[facility] MIAMIA [id number] [address] LABORATORYCLIA [id number] [place] [address] [place] RED CELL MORPH Reviewed: see result s of individual morphologies Normal [facility] Comment on above: Order Comment: Speci men Type: BLOOD SPECIMENOrdering Facility: [facility] Address: [address] [place] [address] Performed By: #### 5 7021-8 ####[facility] MIAMIA [id number] [address] LABORATORYCLIA [id number] [place] [address] [place] WBC (Bld) [#/Vol] 3.45 10*3/uL Low 3.70-11.00 [facility] Comment on above: Order Comment: Speci men Type: BLOOD SPECIMENOrdering Facility: [facility] Address: [address] [place] [address] Performed By: #### 5 7021-8 ####[facility] DIAZ MILLTOWNCLIA [id number] [address] LABORATORYCLIA [id number] [address] WBC Left Shift Ql (Bld) Present Normal [facility] Comment on above: Order Comment: Speci men Type: BLOOD SPECIMENOrdering Facility: [facility] Address: [address] [place] [address] Performed By: #### 5 7021-8 ####[facility]DRENNCLIA [id number] [address] LABORATORYCLIA [id number] [address] [place] [facility] CBC W Auto Differential pane l (Bld)on 12-29-2023 Basophils (Bld) [#/Vol] 10*3/uL Normal <0.11 [facility] Comment on above: Order Comment: Speci men Type: BLOOD SPECIMENOrdering Facility: [facility] Address: [address] [place] [address] Performed By: #### 5 7021-8 ####[facility] DIAZ MILLWNCLIA [id number] [address] [place] Basophils/100 WBC (Bld) 0.2 % Normal [facility] Comment on above: Order Comment: Speci men Type: BLOOD SPECIMENOrdering Facility: [facility] Address: [address] [place] [address] Performed By: #### 5 7021-8 ####[facility]DRENNCLIA [id number] [place] [address] [place] Differential cell count method Nom (Bld) Auto Normal [facility] Comment on above: Order Comment: Speci men Type: BLOOD SPECIMENOrdering Facility: [facility] Address: [address] [place] [address] Performed By: #### 5 7021-8 ####[facility] [id number] [place] [address] [place] Eosinophils (Bld) [#/Vol] 10*3/uL Normal <0.46 [facility] Comment on above: Order Comment: Speci men Type: BLOOD SPECIMENOrdering Facility: [facility] Address: [address] [place] [address] Performed By: #### 5 7021-8 ####[facility] [id number] [place] [address] [place] Eosinophils/100 WBC (Bld) 0.2 % Normal [facility] Comment on above: Order Comment: Speci men Type: BLOOD SPECIMENOrdering Facility: [facility] Address: [address] [place] [address] Performed By: #### 5 7021-8 ####[facility] [id number] [place] [address] [place] Erythrocyte distribution width (RBC) [Ratio] 17.5 % High 11.5-15.0 [facility] Comment on above: Order Comment: Speci men Type: BLOOD SPECIMENOrdering Facility: [facility] Address: [address] [place] [address] Performed By: #### 5 7021-8 ####[facility] [id number] [place] [address] [place] Hematocrit (Bld) [Volume fraction] 35.2 % Low 39.0-51.0 [facility] Comment on above: Order Comment: Speci men Type: BLOOD SPECIMENOrdering Facility: [facility] Address: [address] [place] [address] Performed By: #### 5 7021-8 ####[facility] SOWMYACLIOMANUEL [id number] [place] [address] [place] Hemoglobin (Bld) [Mass/Vol] 11.4 g/dL Low 13.0-17.0 [facility] Comment on above: Order Comment: Speci men Type: BLOOD SPECIMENOrdering Facility: [facility] Address: [address] [place] [address] Performed By: #### 5 7021-8 ####[facility] [id number] [place] [address] [place] Immature granulocytes (Bld) [#/Vol] 0.06 10*3/uL Normal <0.10 [facility] Comment on above: Order Comment: Speci men Type: BLOOD SPECIMENOrdering Facility: [facility] Address: [address] [place] [address] Performed By: #### 5 7021-8 ####[facility] MIAMIA [id number] [place] [address] [place] Immature granulocytes/100 WBC (Bld) 1.4 % Normal [facility] Comment on above: Order Comment: Speci men Type: BLOOD SPECIMENOrdering Facility: [facility] Address: [address] [place] [address] Performed By: #### 5 7021-8 ####[facility] CENTERLIA [id number] [place] [address] [place] Lymphocytes (Bld) [#/Vol] 0.56 10*3/uL Low 1.00-4.00 [facility] Comment on above: Order Comment: Speci men Type: BLOOD SPECIMENOrdering Facility: [facility] Address: [address] [place] [address] Performed By: #### 5 7021-8 ####[facility] CENTERLATASHAA [id number] [place] [address] [place] Lymphocytes/100 WBC (Bld) 13.3 % Normal [facility] Comment on above: Order Comment: Speci men Type: BLOOD SPECIMENOrdering Facility: [facility] Address: [address] [place] [address] Performed By: #### 5 7021-8 ####[facility] [id number] [place] [address] [place] MCH (RBC) [Entitic mass] 30.1 pg Normal 26.0-34.0 [facility] Comment on above: Order Comment: Speci men Type: BLOOD SPECIMENOrdering Facility: [facility] Address: [address] [place] [address] Performed By: #### 5 7021-8 ####[facility] [id number] [place] [address] [place] MCHC (RBC) [Mass/Vol] 32.4 g/dL Normal 30.5-36.0 [facility] Comment on above: Order Comment: Speci men Type: BLOOD SPECIMENOrdering Facility: [facility] Address: [address] [place] [address] Performed By: #### 5 7021-8 ####[facility] [id number] [place] [address] [place] MCV (RBC) [Entitic vol] 92.9 fL Normal 80.0-100.0 [facility] Comment on above: Order Comment: Speci men Type: BLOOD SPECIMENOrdering Facility: [facility] Address: [address] [place] [address] Performed By: #### 5 7021-8 ####[facility] [id number] [place] [address] [place] Monocytes (Bld) [#/Vol] 0.22 10*3/uL Normal <0.87 [facility] Comment on above: Order Comment: Speci men Type: BLOOD SPECIMENOrdering Facility: [facility] Address: [address] [place] [address] Performed By: #### 5 7021-8 ####[facility] MIAMIA [id number] [place] [address] [place] Monocytes/100 WBC (Bld) 5.2 % Normal [facility] Comment on above: Order Comment: Speci men Type: BLOOD SPECIMENOrdering Facility: [facility] Address: [address] [place] [address] Performed By: #### 5 7021-8 ####[facility] [id number] [place] [address] [place] Neutrophils (Bld) [#/Vol] 3.34 10*3/uL Normal 1.45-7.50 [facility] Comment on above: Order Comment: Speci men Type: BLOOD SPECIMENOrdering Facility: [facility] Address: [address] [place] [address] Performed By: #### 5 7021-8 ####[facility] [id number] [place] [address] [place] Neutrophils/100 WBC (Bld) 79.7 % Normal [facility] Comment on above: Order Comment: Speci men Type: BLOOD SPECIMENOrdering Facility: [facility] Address: [address] [place] [address] Performed By: #### 5 7021-8 ####[facility] [id number] [place] [address] [place] Nucleated RBC (Bld) [#/Vol] 0.02 10*3/uL High <0.01 [facility] Comment on above: Order Comment: Speci men Type: BLOOD SPECIMENOrdering Facility: [facility] Address: [address] [place] [address] Performed By: #### 5 7021-8 ####[facility] [id number] [place] [address] [place] Nucleated RBC/100 WBC (Bld) [Ratio] 0.5 /100 WBC Normal [facility] Comment on above: Order Comment: Speci men Type: BLOOD SPECIMENOrdering Facility: [facility] Address: [address] [place] [address] Performed By: #### 5 7021-8 ####[facility] SOWMYACLIOMANUEL [id number] [place] [address] [place] Platelet mean volume (Bld) [Entitic vol] 8.6 fL Low 9.0-12.7 [facility] Comment on above: Order Comment: Speci men Type: BLOOD SPECIMENOrdering Facility: [facility] Address: [address] [place] [address] Performed By: #### 5 7021-8 ####[facility] [id number] [place] [address] [place] Platelets (Bld) [#/Vol] 134 10*3/uL Low 150-400 [facility] Comment on above: Order Comment: Speci men Type: BLOOD SPECIMENOrdering Facility: [facility] Address: [address] [place] [address] Performed By: #### 5 7021-8 ####[facility] [id number] [place] [address] [place] RBC (Bld) [#/Vol] 3.79 10*6/uL Low 4.20-6.00 [facility] Comment on above: Order Comment: Speci men Type: BLOOD SPECIMENOrdering Facility: [facility] Address: [address] [place] [address] Performed By: #### 5 7021-8 ####[facility] SOWMYATOWNCLIA [id number] [place] [address] [place] WBC (Bld) [#/Vol] 4.20 10*3/uL Normal 3.70-11.00 [facility] Comment on above: Order Comment: Speci men Type: BLOOD SPECIMENOrdering Facility: [facility] Address: [facility] [place] [address] Performed By: #### 5 7021-8 ####[facility] [id number] [place] [address] [place] PT D/C Summary (1)on 024 PT D/C Summary (1) [facility] [address] [place] [address] [address] [place] [address] / REHABILITATION SERVICES DISCHARGE SUMMARY MR#: [id number] Acct: [id number] Name: CHANCE MUNOZ Rep #: [id number] : 1945 78 From: Justice Barrett DPT, OCS, CSCS Referring Dr.: Dr. Shreyas Amezquita DO Status: RE G R Insurance: MEDICARE PART A B [facility] Discharge Summary D/C summary: It has been my pleasure to treat CHANCE MUNOZ referred by Dr. Shreyas Amezquita DO, with the diagnosis of Dizzyness for a total of 2 visit(s). Discharge Date: 12/26/23 Please see the following information for a summary of their discharge status. Subjective Subjective: I am more stable. Helped alot. No spinning or noticeable dizzyness. Stooped to trim molina a couple days without issues. Sleeping is not an issue. Life is pretty normal. Overall Improvement % Improvement: 100 Objective Objective/Function: - hallpike naima. Improved balance with FGa and feeling back to normal Goals Goal 1:: Abolish vertigo and feeling 100% back to normal Goal Progress: Goal Met Goal 2:: FGA 27/30 Goal Progress: Goal Met Goal 3:: DHI 0 Goal Progress: Goal Met Plan Plan: d/c D/C Information d/c sentence: If there are questions or concerns regarding this patient's physical therapy, please feel free to call me at [phone]. Thank you for the referral of this patient. Sincerely, Justice Barrett DPT, SARANYA, CSCS Balance/Gait/Functional tests Balance/Special Test Scores Functional Gait Assessment Score: 28 % Disability: 6.6700 CATSIB Score (Max score 120 seconds): 120 Dizziness Score: 0 Improvement % Improvement: 100 12/26/23 0918 CC: Dr. Shreyas Amezquita DO EBG Signed Normal [facility] Inital Evaluation (1) - PTon 12-19-2023 Inital Evaluation (1) - PT [facility] [address] [place] [address] / REHABILITATION SERVICES INITIAL EVALUATION MR#: [id number] Acct: [id number] Name: CHANCE MUNOZ Rep #: [id number] : 1945 78 From: Justice Barrett DPT, SARANYA, ONIEL Referring Dr.: Dr. Shreyas Amezquita DO Status: RE G RCR Insurance: MEDICARE PART A B [facility] Patient's Visit Information Visit Information Visit Information: CHANCE MUNOZ is a 78 year old M referred to Physical Therapy by Dr. Shreyas Amezquita DO with a diagnosis of Dizzyness. Date of Evaluation: 12/19/23 Physical Therapist: Justice Barrett DPT, SARANYA, CSCS Visit Plan Frequency: 1x/Week Duration: 4-6 Weeks Plan: weekly as needed for positional checks(+ L HD today) and balance activities/oculomotor as needed. Progression to HEP Subjective Subjective: Getting dizzy again. Started 2 weeks ago taking bag down the steps one at a time adn looking down adn raised back up and got dizzy all of a sudden, fell down step and hurt trunk but they are OK. Laid on steps for a while, crawled up steps and sat on couch. Still dizzy a little at that point. Got dizzy again later that day. Squad called and went to hospital. Testing at hospital was all good. Wore heart monitor and it was fine. Blood tests were fine. Not much spinning in last few weeks but feels a little unstable sometimes for short periods. Maybe turning away from sink or moving head. eyes feel like they are going up and down now and then. Activities are OK, avoids due to pain in trunk outdoor work. Sleep is OK. sleeps in recliner due to not bothering . Retired. Basic ADLs all I, steps are OK. Objective Objective: Walks into PT slowly but I and safe. Trasnfers chair and bed with UE, painful in trunk since fall but I. Steps reciprocal with 1 rail and pulling with arms. Some neuropathy and lack of confidence in his gait pattern. cervical AROM WFL and without pain, UE AROM WFL and without pain. - R HD + L HD for quick up torsional nystagmus and dizzy, treated with ivis and then much better second time. Heel raises are hard and weak Balance/Special Test Scores Functional Gait Assessment Score: 25 % Disability: 16.6700 CATSIB Score (Max score 120 seconds): 120 Dizziness Score: 10 Goals Goal 1:: Abolish vertigo and feeling 100% back to normal Goal Time Frame: 4-6 Weeks Goal 2:: FGA 27/30 Goal Time Frame: 4-6 Weeks Goal 3:: DHI 0 Goal Time Frame: 4-6 Weeks Rehabilitation Potential Physical Therapy Diagnosis: Hints of BPPV effecting confident funciton, neuroapthy effecting confidence in gait. Rehabilitation Potential: Good Anticipated Interventions Patient/Client Instruction: Educate patient on: Condition and Risk Factors For the Purpose of:: To increase tolerance to activity/condition/positi on Therapeutic Exercise to Include: Balance training Comment: positional ex activities For the Purpose of:: To increase tolerance to activity/condition/positi on, To improve balance and To improve safety Text: Thank you for the opportunity to evaluate your patient. For Medicare and Medicare HMO plans, please review the plan of care and approve it. It will need to be FAXED BACK to us at [phone] for Medicare purposes. For Medicare only, by signing this I certify the plan of care. Please let me know if there are questions or concerns regarding this plan of care. Physician Signature: Date: _ 12/19/23 0742 CC: Dr. Shreyas Amezquita DO EBG Signed Normal [facility] Cardiology Visit Reporton Cardiology Visit Report [facility] [address] [place] [address] OFFICE VISIT Date of Service: 12/18/23 MR#: [id number] Acct: [id number] Name: CHANCE MUNOZ Rep #: [id number] : 1945 Provider: WILLIAN Tolentino Age/Sex: 78/M Location: [facility] Status: Signed HPI HPI History of Present Illness Details: CHANCE MUNOZ, is a 77 M who presents to the office today for a follow-up visit. He has a history of bradycardia and premature ventricular complexes. He returns for routine follow-up visit. This evaluation had demonstrated 4.4% PVCs on the Holter in 2016. He states he is allergic to RSV vaccination and "all generic medications due to fillers". He was seen in the emergency room for a near syncopal event. There was concern over a sinus pause as he did have a pause of about 1 second noted on his telemetry strip. He did undergo a 48-hour Holter monitor which did demonstrate sinus rhythm with occasional PVCs/PACs, average heart rate 85 bpm. Ventricular ectopy 1.4%, supraventricular ectopy 0.3%, atrial fibrillation 0.0%. He will continue with his current medical this time, and continue to monitor for any concerning symptoms. He denies chest, arm, jaw, or neck discomfort. He denies palpitations. He states mild, intermittent bilateral lower extremity edema. He denies claudication. He states shortness of breath with activity when he was clearing off the sidewalk. He was seen in the emergency department and workup was negative. He was treated for dehydration. He denies shortness of breath at rest, orthopnea, or PND. He denies chronic cough. He denies significant, sudden weight gain. He states dizziness when turning his head too quickly. He denies lightheadedness, near-syncope, or syncope. He denies blood in urine, blood in stool, or epistaxis. He denies fever with chills. He denies myalgia. He states fatigue. His exercise level has remained stable. Intake Vital Signs 11/25/23 14:46 12/18/23 09:31 Height 5 ft 10.5 in 5 ft 10.5 in Weight: 156 lb BMI 22.0 BP 102/59 L Blood Pressure Location Lt brachial Position Sitting Respiration 18 Pulse 80 Pulse Source Monitor Pulse Oximetry (%) 97 Intake Visit Reasons: S/P [facility] 11/24 Mri Technician Required: No Is patient in pain?: No Allergies cefaclor (From Ceclor) Allergy (Verified 12/18/23 09:31) Unknown contact metal agent Allergy (Verified 12/18/23 09:31) Rash nortriptyline Allergy (Verified 12/18/23 09:31) Unknown Penicillins Allergy (Verified 12/18/23 09:31) blisters on feet alfuzosin (From Uroxatral) Adverse Reaction (Verified 12/18/23 09:31) Unknown esomeprazole (From Nexium) Adverse Reaction (Verified 12/18/23 09:31) Itching lansoprazole (From Prevacid) Adverse Reaction (Verified 12/18/23 09:31) Upset Stomach Medications ???Medication ???Instructions ???Recorded ???Confirmed ???Type magnesium 250 mg tablet 500 mg PO QDAY 12/11/20 10/13/23 History calcium 500 mg-vitamin D3 1,000 2 tab PO DAILY supplement 12/25/20 10/13/23 History unit-vitamin K 40 mcg chewable tablet (Citracal-D3 Soft Chew) docusate sodium 50 mg capsule 100 mg PO QHS PRN Constipation 12/25/20 10/13/23 History finasteride 5 mg tablet 5 mg PO DAILY 01/09/21 10/13/23 History paroxetine HCl 40 mg tablet 40 mg PO DAILY 01/09/21 10/13/23 History Lactobacillus acidophilus 10 10,000 mmu cells PO DAILY 05/03/21 10/13/23 History billion cell capsule (Probiotic) Acapella #1 ea 02/21/22 10/13/23 Rx spacer #1 ea 08/29/22 10/13/23 Rx bupropion HCl 150 mg 24 hr tablet, 150 mg PO DAILY 01/23/23 10/13/23 History extended release tamsulosin 0.4 mg capsule 0.4 mg PO QHS 04/08/23 10/13/23 History levothyroxine 100 mcg tablet 100 mcg PO QDAY 07/29/23 10/13/23 History fluticasone propionate 50 1 spray intranasal QDAY 10/13/23 10/13/23 History mcg/actuation nasal spray,suspension tralokinumab-ldrm 150 mg/mL 300 mg subcut Q2W 10/13/23 10/13/23 History subcutaneous syringe (Adbry) albuterol sulfate 90 mcg/actuation 2 inh inhalation Q6H PRN SOB #8.5 11/17/23 Rx aerosol inhaler grams fluticasone furoate 200 1 inh inhalation QDAY #60 ea 11/18/23 Rx mcg-vilanterol 25 mcg/dose inhalation powder (Breo Ellipta) pantoprazole 40 mg tablet,delayed 40 mg PO DAILY #90 TABLETS 12/12/23 Rx release Have you fallen in the past year?: No [facility] Medical History (Reviewed 10/13/23 @ 10:55 by Dianne Donnelly 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 Normal [facility] Free T3on 12-18-2023 Free T3 [Mass/Vol] 1.7 pg/mL Low 2.18-3.98 [facility] Comment on above: Performed By: #### L 501.9520, L501.47086, L506.0400 #### [facility] [address] [place], [place], [id number] T4 Free Directon 12-18-2023 T4 FREE DIRECT 1.02 ng/dL Normal 0.76-1.46 [facility] Comment on above: Performed By: #### L 501.9520, L501.76046, L506.0400 #### [facility] [address] [place], [address] Thyroid Stim Hormone (TSH)on 12-18-2023 TSH 4.010 uIU/mL High 0.358-3.74 0 [facility] Comment on above: Performed By: #### L 501.9520, L501.91078, L506.0400 #### [facility] [address] [place], [address] 36on 08-23-2023 36 Error. Reason for Disposition ? Caller has already spoken with another triager and has no further questions. Protocols used: No Contact or Duplicate Contact Wusp-YXJOB-BECHI [facility] CBC W Auto Differential pane l (Bld)on 06-07-2023 Basophils (Bld) [#/Vol] 10*3/uL Normal <0.11 M [facility] Comment on above: Order Comment: Speci men Type: BLOOD SPECIMEN [facility] Address: [address] [place] [address] Performed By: #### 5 7021-8 #### [facility] CLIA [id number] [address] [place] [address] [place] Basophils/100 WBC (Bld) 0.2 % Normal [facility] Comment on above: Order Comment: Speci men Type: BLOOD SPECIMEN [facility] Address: [address] [place] [address] Performed By: #### 5 7021-8 #### [facility] CLIA [id number] [address] [place] [address] [place] Differential cell count method Nom (Bld) [facility] Comment on above: Order Comment: Speci men Type: BLOOD SPECIMEN [facility] Address: [address] [place] [address] Performed By: #### 5 7021-8 #### [facility] CLIA [id number] [address] [place] [address] [place] Eosinophils (Bld) [#/Vol] 10*3/uL Normal <0.46 [facility] Comment on above: Order Comment: Speci men Type: BLOOD SPECIMEN [facility] Address: [address] [place] [address] Performed By: #### 5 7021-8 #### [facility] CLIA [id number] [address] [place] Eosinophils/100 WBC (Bld) 0.2 % Normal [facility] Comment on above: Order Comment: Speci men Type: BLOOD SPECIMEN [facility] Address: [address] [place] [address] Performed By: #### 5 7021-8 #### [facility] CLIA [id number] [address] Erythrocyte distribution width (RBC) [Ratio] 12.8 % Normal 11.5-15.0 [facility] Comment on above: Order Comment: Speci men Type: BLOOD SPECIMEN [facility] Address: [address] [place] [address] Performed By: #### 5 7021-8 #### [facility] CLIA [id number] [address] Hematocrit (Bld) [Volume fraction] 28.7 % Low 39.0-51.0 [facility] Comment on above: Order Comment: Speci men Type: BLOOD SPECIMEN [facility] Address: [address] [place] [address] Performed By: #### 5 7021-8 #### [facility] CLIA [id number] [address] Hemoglobin (Bld) [Mass/Vol] 9.6 g/dL Low 13.0-17.0 [facility] Comment on above: Order Comment: Speci men Type: BLOOD SPECIMEN [facility] Address: [address] [place] [address] Performed By: #### 5 7021-8 #### [facility] CLIA [id number] [address] Immature granulocytes (Bld) [#/Vol] 0.19 10*3/uL High <0.10 [facility] Comment on above: Order Comment: Speci men Type: BLOOD SPECIMEN [facility] Address: [address] [place] [address] Performed By: #### 5 7021-8 #### [facility] CLIA [id number] [address] Immature granulocytes/100 WBC (Bld) 3.7 % Normal [facility] Comment on above: Order Comment: Speci men Type: BLOOD SPECIMEN [facility] Address: [address] [place] [address] Performed By: #### 5 7021-8 #### [facility] CLIA [id number] [address] Lymphocytes (Bld) [#/Vol] 0.60 10*3/uL Low 1.00-4.00 [facility] Comment on above: Order Comment: Speci men Type: BLOOD SPECIMEN [facility] Address: [address] [place] [address] Performed By: #### 5 7021-8 #### [facility] CLIA [id number] [address] Lymphocytes/100 WBC (Bld) 11.8 % Normal [facility] Comment on above: Order Comment: Speci men Type: BLOOD SPECIMEN [facility] Address: [address] [place] [address] Performed By: #### 5 7021-8 #### [facility] CLIA [id number] [address] MCH (RBC) [Entitic mass] 31.6 pg Normal 26.0-34.0 [facility] Comment on above: Order Comment: Speci men Type: BLOOD SPECIMEN [facility] Address: [address] [place] [address] Performed By: #### 5 7021-8 #### [facility] CLIA [id number] [address] [place] [facility] MCHC (RBC) [Mass/Vol] 33.4 g/dL Normal 30.5-36.0 [facility] Comment on above: Order Comment: Speci men Type: BLOOD SPECIMEN [facility] Address: [address] [place] [address] Performed By: #### 5 7021-8 #### [facility] CLIA [id number] [address] [place] [address] [place] MCV (RBC) [Entitic vol] 94.4 fL Normal 80.0-100.0 [facility] Comment on above: Order Comment: Speci men Type: BLOOD SPECIMEN [facility] Address: [address] [place] [address] Performed By: #### 5 7021-8 #### [facility] CLIA [id number] [address] [place] Monocytes (Bld) [#/Vol] 0.37 10*3/uL Normal <0.87 [facility] Comment on above: Order Comment: Speci men Type: BLOOD SPECIMEN [facility] Address: [address] [place] [address] Performed By: #### 5 7021-8 #### [facility] CLIA [id number] [address] Monocytes/100 WBC (Bld) 7.3 % Normal [facility] Comment on above: Order Comment: Speci men Type: BLOOD SPECIMEN [facility] Address: [address] [place] [address] Performed By: #### 5 7021-8 #### [facility] CLIA [id number] [address] [place] [address] [place] Neutrophils (Bld) [#/Vol] 3.89 10*3/uL Normal 1.45-7.50 [facility] Comment on above: Order Comment: Speci men Type: BLOOD SPECIMEN [facility] Address: [address] [place] [address] Performed By: #### 5 7021-8 #### [facility] CLIA [id number] [address] [place] Neutrophils/100 WBC (Bld) 76.8 % Normal [facility] Comment on above: Order Comment: Speci men Type: BLOOD SPECIMEN [facility] Address: [address] [place] [address] Performed By: #### 5 7021-8 #### [facility] CLIA [id number] [address] Nucleated RBC (Bld) [#/Vol] 0.05 10*3/uL High <0.01 [facility] Comment on above: Order Comment: Speci men Type: BLOOD SPECIMEN [facility] Address: [address] [place] [address] Performed By: #### 5 7021-8 #### [facility] CLIA [id number] [address] Nucleated RBC/100 WBC (Bld) [Ratio] 1.0 /100 WBC Normal [facility] Comment on above: Order Comment: Speci men Type: BLOOD SPECIMEN [facility] Address: [address] [place] [address] Performed By: #### 5 7021-8 #### [facility] CLIA [id number] [address] Platelet mean volume (Bld) [Entitic vol] 8.4 fL Low 9.0-12.7 [facility] Comment on above: Order Comment: Speci men Type: BLOOD SPECIMEN [facility] Address: [address] [place] [address] Performed By: #### 5 7021-8 #### [facility] CLIA [id number] [address] Platelets (Bld) [#/Vol] 162 10*3/uL Normal 150-400 [facility] Comment on above: Order Comment: Speci men Type: BLOOD SPECIMEN [facility] Address: [address] [place] [address] Performed By: #### 5 7021-8 #### [facility] CLIA [id number] [address] [place] Platelets Estimate (Bld) [#/Vol] Adequate Normal [facility] Comment on above: Order Comment: Speci men Type: BLOOD SPECIMEN [facility] Address: [address] [place] [address] Performed By: #### 5 7021-8 #### [facility] CLIA [id number] [address] RBC (Bld) [#/Vol] 3.04 10*6/uL Low 4.20-6.00 [facility] Comment on above: Order Comment: Speci men Type: BLOOD SPECIMEN [facility] Address: [address] [place] [address] Performed By: #### 5 7021-8 #### [facility] CLIA [id number] [address] [employer] [facility] Reviewed: unremarkable [facility] Comment on above: Order Comment: Speci men Type: BLOOD SPECIMEN [facility] Address: [address] [place] [address] Performed By: #### 5 7021-8 #### [facility] CLIA [id number] [address] [place] WBC (Bld) [#/Vol] 5.07 10*3/uL Normal 3.70-11.00 [facility] Comment on above: Order Comment: Speci men Type: BLOOD SPECIMEN [facility] Address: [address] [place] [address] Performed By: #### 5 7021-8 #### [facility] CLIA [id number] [address] WBC Left Shift Ql (Bld) Present Normal [facility] Comment on above: Order Comment: Speci men Type: BLOOD SPECIMEN [facility] Address: [address] [place] [address] Performed By: #### 5 7021-8 #### [facility] CLIA [id number] [address] [place] [facility]2023 CRP [Mass/Vol] 8.1 mg/dL High <0.9 [facility] Comment on above: Order Comment: Speci men Type: BLOOD SPECIMEN [facility] Address: [address] [place] [address] Performed By: #### 1 988-5 #### [facility] CLIA [id number] [address] [place] [address] [place] CRYOGLOBULIN, QUAL, REFLEX T O DENISE AND IGG,A,Mon 06-07-2023 CRYOGLOBULIN, QUALITATIVE NEG 72Hour Normal -72Hour [facility] Comment on above: Order Comment: Speci men Type: BLOOD SPECIMEN Ordering Facility: [facility] Address: [address] [place] [address] Result Comment: This test was developed and its performance characteristics determined by [employer]. It has not been cleared or approved by the [place] Food and Drug Administration. This test was performed in a CLIA certified laboratory and is intended for clinical purposes. Performed By: [facility] [address] [place] [address] Machine Cloth Examiner: Cleveland Quinones MD, PhD CLIA Number: [id number] Performed By: #### C RYAGM #### COUNTS INCLUDE 234 BEDS AT THE [facility] CLIA [id number] [address] [place] [address] EPO SerPl-aCncon 06-07-2023 Erythropoietin (EPO) Qn 13.7 mIU/mL Normal 2.6-18.5 [facility] Comment on above: Order Comment: Speci [facility] Type: BLOOD SPECIMEN [facility] Address: [address] [place] [address] Performed By: #### 1 5061-5 #### [facility] CLIA [id number] [address] [place] [address] DESK [id number] [address] [place] ESR Westergren method (Bld) [Velocity]on 06-07-2023 ESR (Bld) [Velocity] 38 mm/h High 0-15 [facility] Comment on above: Order Comment: Speci men Type: BLOOD SPECIMEN Ordering Facility: [facility] Address: [address] [place] [address] Performed By: #### [id number] #### [facility] CLIA [id number] [address] [place] [address] [place] Methylmalonate SerPl-sCncon 06-07-2023 Methylmalonate [Moles/Vol] 0.13 umol/L Normal <=0.40 [facility] Comment on above: Order Comment: Speci men Type: BLOOD SPECIMEN Ordering Facility: [facility] Address: [address] [place] [address] Result Comment: This test was developed and its performance characteristics determined by [facility] [place] ([facility]). It has not been cleared or approved by the FDA. [facility] is regulated under CLIA as qualified to perform high-complexity testing. This test is used for clinical purposes. It should not be regarded as investigational or for research. Performed By: #### [id number] #### [facility] CLIA [id number] [address] [place] [address] [place] COPPER BLOODon 04-28-2023 Copper [Mass/Vol] 128 ug/dL 70 - 140 ug/dL [facility] ZINC BLDon 04-28-2023 Zinc [Mass/Vol] 55 ug/dL Low 60 - 120 ug/dL [facility] CBC W Auto Differential pane l (Bld)on 04-25-2023 Basophils (Bld) [#/Vol] 0.00 10*3/uL <0.11 k/uL [facility] Basophils/100 WBC (Bld) 0.0 % [facility] Dacrocytes LM Ql (Bld) Few Cl [facility] Differential cell count method Nom (Bld) Manual [facility] Eosinophils (Bld) [#/Vol] 0.00 10*3/uL <0.46 k/uL [facility] Eosinophils/100 WBC (Bld) 0.0 % [facility] Erythrocyte distribution width (RBC) [Ratio] 14.0 % 11.5 - 15.0 % [facility] Hematocrit (Bld) [Volume fraction] 32.1 % Low 39.0 - 51.0 % [facility] Hemoglobin (Bld) [Mass/Vol] 10.7 g/dL Low 13.0 - 17.0 g/dL [facility] Lymphocytes (Bld) [#/Vol] 0.81 10*3/uL Low 1.00 - 4.00 k/uL [facility] Lymphocytes/100 WBC (Bld) 19.5 % [facility] MCH (RBC) [Entitic mass] 31.4 pg 26.0 - 34.0 pg [facility] MCHC (RBC) [Mass/Vol] 33.3 g/dL 30.5 - 36.0 g/dL [facility] MCV (RBC) [Entitic vol] 94.1 fL 80.0 - 100.0 fL [facility] Monocytes (Bld) [#/Vol] 0.07 10*3/uL <0.87 k/uL [facility] Monocytes/100 WBC (Bld) 1.8 % [facility] Neutrophils (Bld) [#/Vol] 3.26 10*3/uL 1.45 - 7.50 k/uL [facility] Neutrophils/100 WBC (Bld) 78.7 % [facility] Nucleated RBC (Bld) [#/Vol] 0.04 10*3/uL High <0.01 k/uL [facility] Nucleated RBC/100 WBC (Bld) [Ratio] 0.9 /100 WBC [facility] Ovalocytes LM Ql (Bld) Few Cl [facility] Platelet mean volume (Bld) [Entitic vol] 8.3 fL Low 9.0 - 12.7 fL [facility] Platelets (Bld) [#/Vol] 136 10*3/uL Low 150 - 400 k/uL [facility] Platelets Estimate (Bld) [#/Vol] Decreased [facility] Polychromasia LM Ql (Bld) Slight [facility] RBC (Bld) [#/Vol] 3.41 10*6/uL Low 4.20 - 6.00 m/uL [facility] Red Cell Morph Reviewed: see result s of individual morphologies [facility] WBC (Bld) [#/Vol] 4.14 10*3/uL 3.70 - 11.00 k/uL [facility] Comprehensive metabolic 2000 panelon 04-25-2023 Albumin [Mass/Vol] 3.9 g/dL 3.9 - 4.9 g/dL [facility] ALP [Catalytic activity/Vol] 114 U/L High 38 - 113 U/L [facility] ALT [Catalytic activity/Vol] 9 U/L Low 10 - 54 U/L [facility] Anion gap [Moles/Vol] 9 mmol/L 9 - 18 mmol/L [facility] AST [Catalytic activity/Vol] 12 U/L Low 14 - 40 U/L [facility] Bilirubin [Mass/Vol] 0.6 mg/dL 0.2 - 1 .3 mg/dL [facility] Calcium [Mass/Vol] 9.6 mg/dL 8.5 - 10. 2 mg/dL [facility] Chloride [Moles/Vol] 95 mmol/L Low 97 - 10 5 mmol/L [facility] CO2 [Moles/Vol] 28 mmol/L 22 - 30 mmol/L [facility] Creatinine [Mass/Vol] 0.64 mg/dL Low 0.73 - 1.22 mg/dL [facility] Estimated Glomerular Filtration Rate 97 mL/min/1.73m >=60 mL/min/1.7 3m [facility] Glucose [Mass/Vol] 151 mg/dL High 74 - 99 mg/dL [facility] Potassium [Moles/Vol] 4.1 mmol/L 3.7 - 5.1 mmol/L [facility] Protein [Mass/Vol] 6.0 g/dL Low 6.3 - 8.0 g/dL [facility] Sodium [Moles/Vol] 132 mmol/L Low 136 - 144 mmol/L [facility] Urea nitrogen [Mass/Vol] 16 mg/dL 9 - 24 mg/dL [facility] FERRITIN BLDon 04-25-2023 Ferritin [Mass/Vol] 2315.0 ng/mL High 30.3 - 565.7 ng/mL [facility] FOLATE SERUMon 04-25-2023 Folate [Mass/Vol] 15.6 ng/mL >4.7 ng/mL [facility] HAPTOGLOBIN BLDon 04-25-2023 Haptoglobin [Mass/Vol] 70 mg/dL 31 - 238 mg/dL [facility] Iron and Iron binding capaci ty panelon 04-25-2023 Iron [Mass/Vol] 54 ug/dL 41 - 186 ug/dL [facility] Iron binding capacity [Mass/Vol] 263 ug/dL 232 - 386 ug/dL [facility] Iron/TIBC [Molar ratio] 20.5 % 15.0 - 57.0 % [facility] LD LACTATE DEHYDROon 024 LDH [Catalytic activity/Vol] 180 U/L 135 - 225 U/L [facility] RETIC COUNTon 04-25-2023 Reticulocytes (Bld) [#/Vol] 0.31839 10*3/uL High 0.018 - 0.100 M/uL [facility] Reticulocytes (Bld) [#/Vol]o n 04-25-2023 Reticulocytes/100 RBC (Bld) 3.2 % High 0.4 - 2.0 % [facility] VITAMIN B12 BLOODon 04-25-19 24 Cobalamin (Vitamin B12) [Mass/Vol] 909 pg/mL 232 - 1,245 pg/mL [facility] Gram stain for investigation of transfusion reactionOrdered By: Ramakrishna Melara on 04-07-2023 Microscopic observation Gram stain Nom (Unsp spec) [facility] No Panel InformationOrdered By: Ramakrishna Melara on 04-07-2023 Nasopharyngeal Culture No growth in 48 hours. [facility] Absolute lymphocyte countOrd ered By: German Roca on 04-03-2023 Lymphocytes Auto (Unsp spec) [#/Vol] 0.59 10*3/uL 0.83-4.51 [facility] Basophil percentageOrdered B y: German Roca on 04-03-2023 Basophils/100 WBC (Bld) 0.3 % 0-1 [facility] Bilirubin [Mass/Vol] 0.80 mg/dL 0.20-1.00 [facility] Comment on above: For patients on eltr ombopag therapy, use of Dimension [place] TBIL is not recommended. Chloride [Moles/Vol] 100 mmol/L 98-107 [facility] Eosinophils/100 WBC (Bld) 0.8 % 0-5 [facility] Glucose [Mass/Vol] 190 mg/dL 74-106 [facility] Comment on above: Fasting Glucose resu lt greater than or equal to 126 mg/dL suggests DIABETES MELLITUS per A.D.A. criteria. Hemoglobin (Bld) [Mass/Vol] 9.2 g/dL 13.0-16.5 [facility] LDH [Catalytic activity/Vol] 185 U/L 87-241 [facility] Lymphocytes/100 WBC (Bld) 15.9 % 19-41 [facility] Monocytes/100 WBC (Bld) 6.7 % 0-10 [facility] Neutrophils (Bld) [#/Vol] 2.8 10*3/uL 2.0-7.7 [facility] Neutrophils/100 WBC (Bld) 74.4 % 47-70 [facility] Potassium [Moles/Vol] 4.1 mmol/L 3.5-5.1 [facility] Protein [Mass/Vol] 6.0 g/dL 6.4-8.2 [facility] Sodium [Moles/Vol] 135 mmol/L 136-145 [facility] WBC (Bld) [#/Vol] 3.7 10*3/uL 4.4-11.0 [facility] Blood manual differential co mment interpretation (narrative result)Ordered By: German Roca on 04-03-2023 Manual differential comment John (Bld) [Interp] SEE COMMENT [facility] Comment on above: LYMPHOPENIA NOTED Blood platelet adequacy dete ction by light microscopyOrdered By: German Roca on 04-03-2023 Platelets LM Ql (Bld) SLT DEC ADEQ [facility] Determination of erythrocyte mean corpuscular volume (MCV)Ordered By: German Roca on 04-03-2023 MCV (RBC) [Entitic vol] 94.4 fL 80-94 [facility] Erythrocyte distribution wid th ratioOrdered By: German Roca on 04-03-2023 Erythrocyte distribution width (RBC) [Ratio] 15.9 % 11.6-14.6 [facility] Erythrocyte distribution wid th standard deviationOrdered By: German Roca on 04-03-2023 Erythrocyte distribution width (RBC) [Entitic vol] 54.8 fL 35.1-43.9 [facility] Erythrocyte sedimentation ra teOrdered By: German Roca on 04-03-2023 ESR (Bld) [Velocity] 19 mm/h 0-20 [facility] Hematocrit Auto (Bld) [Volum e fraction]Ordered By: German Roca on 04-03-2023 Hematocrit (Bld) [Volume fraction] 27.2 % 40-54 [facility] Hemoglobin in reticulocytes (mass per reticulocyte)Ordered By: German Roca on 04-03-2023 Hemoglobin (Reticulocytes) [Entitic mass] 34.5 pg 30-35 [facility] Iron measurement (mass/mass) Ordered By: German Roca on 04-03-2023 Iron (Unsp spec) [Mass/Mass] 44 ug/dL 65-175 [facility] Laboratory - Chemistry and C hemistry - challengeOrdered By: German Roca on 04-03-2023 Albumin/Globulin [Mass ratio] 1.1 {ratio} 0.9-2.4 [facility] ALP [Catalytic activity/Vol] 110 U/L 45-117 [facility] ALT [Catalytic activity/Vol] 15 U/L 16-61 [facility] CO2 [Moles/Vol] 29.0 mmol/L 21.0-32.0 [facility] Ferritin [Mass/Vol] 1607 ng/mL 26-388 [facility] Globulin (S) [Mass/Vol] 2.9 g/dL 2.2-4.2 [facility] Urea nitrogen/Creatinine [Mass ratio] 21.7 mg/mg 10-20 [facility] - Hematology and Cell countsOrdered By: German Roca on 04-03-2023 Anisocytosis Ql (Bld) RARE [facility] Immature granulocytes/100 WBC (Bld) 1.900 % 0.0-0.9 [facility] Comment on above: IG% - Immature Granu locytes (promyelocytes, myelocytes and metamyelocytes) > 1% indicates that a LEFT SHIFT is Present. MCH (RBC) [Entitic mass] 31.9 pg 27.0-32.0 [facility] MCHC (RBC) [Mass/Vol] 33.8 g/dL 32-36 [facility] Platelet mean volume (Bld) [Entitic vol] 8.6 fL 6.2-12.0 [facility] Platelets (Bld) [#/Vol] 140 10*3/uL 150-450 [facility] Macrocytes detectionOrdered By: German Roca on 04-03-2023 Macrocytes Ql (Bld) RARE [facility] No Panel InformationOrdered By: German Roca on 04-03-2023 C-Reactive Protein Extended Range 50.60 mg/L 0.0-3.0 [facility] Comment on above: C-Reactive Protein ( CRP) provides useful information for thediagnosis, therapy and monitoring of inflammatory processesand associated diseases. For the evaluation of Relative Riskfor Cardiovascular Disease, a High Sensitivity CRP (HSCRP)should be ordered. Estimated Creatinine Clearance Calc 72.47 ml/min [facility] Estimated GFR (MDRD) Amer 115 mL/min >60 [facility] Comment on above: GFR Calc Estimated GFR (MDRD) Non-Af Amer 95 mL/min >60 [facility] Comment on above: Non- GFR Calc Immature Reticulocyte Fraction 9.40 % 3.00-15.90 [facility] Total Iron Binding Capacity 215 ug/dL 250-450 [facility] RBC Auto (Bld) [#/Vol]Ordere d By: German Roca on 04-03-2023 RBC (Bld) [#/Vol] 2.88 10*6/uL 4.6-6.2 [facility] RBC morphologyOrdered By: Gypsy Roca on 04-03-2023 RBC morphology finding Nom (Bld) N CHROM NORMAL NORM C&C [facility] Reticulocytes Auto (Bld) [#/ Vol]Ordered By: German Roca on 04-03-2023 Reticulocytes/100 RBC (Bld) 3.22 % 0.5-1.5 [facility] Review by pathologistOrdered By: German Roca on 04-03-2023 Pathologist review John (Unsp spec) [Interp] Reviewed [facility] Comment on above: Previous reported re sult: Aida garcia Edited by: MIKY on 04/04/23:1010Pancytopenia.LeukopeniaMacrocytic anemia. MILD Thrombocytopenia.Clinical correlation necessary.Thad Arellano M.D. 04/04/23 AMENDED REPORT 04/04/23 1010 PATH REV previously reported as: Aida garcia Serum or plasma calcium evette urement (mass/volume)Ordered By: German Roca on 04-03-2023 Calcium [Mass/Vol] 9.0 mg/dL 8.5-10.1 [facility] Serum or plasma creatinine m easurement (mass/volume)Ordered By: German Roca on 04-03-2023 Creatinine [Mass/Vol] 0.83 mg/dL 0.70-1.30 [facility] Comment on above: The validity of the calculated GFR & GFRAA in patients over 70 years has not been determined. Clinical correlation is essential. Serum or plasma iron saturat ion measurement (mass fraction)Ordered By: German Abelino on 04-03-2023 Iron saturation [Mass fraction] 20.5 % 15.0-55.0 [facility] Serum or plasma urea nitroge n measurement (mass/volume)Ordered By: German Roca on 04-03-2023 Urea nitrogen [Mass/Vol] 18 mg/dL 7-18 [facility] Thin prep Papanicolaou smear with manual screeningOrdered By: German Roca on 04-03-2023 Thin prep Papanicolaou smear with manual screening 3.1 g/dL 3.2-5.0 [facility] Thin prep Papanicolaou smear with manual screening 8 U/L 15-37 [facility] Thin prep Papanicolaou smear with manual screening 6 5-15 [facility] Absolute lymphocyte countOrd ered By: John Brownlee on 03-11-2023 Lymphocytes Auto (Unsp spec) [#/Vol] 0.35 10*3/uL 0.83-4.51 [facility] Basophil percentageOrdered B y: John Brownlee on 03-11-2023 Basophil percentage 0-5 SEEN /hpf 0-5 [facility] Basophil percentage Not Reportable [facility] Chloride [Moles/Vol] 100 mmol/L 98-107 [facility] Glucose [Mass/Vol] 300 mg/dL 74-106 [facility] Comment on above: Glucose result great er than or equal to 200 mg/dLsuggests DIABETES MELLITUS per A.D.A. criteria. Hemoglobin (Bld) [Mass/Vol] 11.5 g/dL 13.0-16.5 [facility] Neutrophils (Bld) [#/Vol] 5.2 10*3/uL 2.0-7.7 [facility] Potassium [Moles/Vol] 3.5 mmol/L 3.5-5.1 [facility] Sodium [Moles/Vol] 135 mmol/L 136-145 [facility] WBC (Bld) [#/Vol] 5.8 10*3/uL 4.4-11.0 [facility] Bilirubin Test strip Ql (U)O rdered By: John Brownlee on 03-11-2023 Bilirubin Ql (U) 1 mg/dL Negative [facility] Comment on above: COLOR OF URINE MAY A FFECT DIPSTICK RESULTS. Blood lymphocytes/100 leukoc ytesOrdered By: John Brownlee on 03-11-2023 Lymphocytes/100 WBC (Bld) 6 % 19-41 [facility] Blood monocytes/100 leukocyt esOrdered By: John Brownlee on 03-11-2023 Monocytes/100 WBC (Bld) 2 % 0-10 [facility] Blood platelet adequacy dete ction by light microscopyOrdered By: John Brownlee on 03-11-2023 Platelets LM Ql (Bld) ADEQUATE ADEQ [facility] Blood segmented neutrophils/ 100 leukocytesOrdered By: John Brownlee on 03-11-2023 Segmented neutrophils/100 WBC (Bld) 90 % 47-70 [facility] Determination of erythrocyte mean corpuscular volume (MCV)Ordered By: John Brownlee on 03-11-2023 MCV (RBC) [Entitic vol] 94.2 fL 80-94 [facility] Erythrocyte distribution wid th ratioOrdered By: John Brownlee on 03-11-2023 Erythrocyte distribution width (RBC) [Ratio] 17.4 % 11.6-14.6 [facility] Erythrocyte distribution wid th standard deviationOrdered By: John Brownlee on 03-11-2023 Erythrocyte distribution width (RBC) [Entitic vol] 59.9 fL 35.1-43.9 [facility] Hematocrit Auto (Bld) [Volum e fraction]Ordered By: John Brownlee on 03-11-2023 Hematocrit (Bld) [Volume fraction] 35.6 % 40-54 [facility] Hyaline casts LM.LPF (Urine sed) [#/Area]Ordered By: John Brownlee on 03-11-2023 Hyaline casts (Urine sed) [#/Area] 0 /[LPF] 0-5 [facility] Ketones Test strip Ql (U)Ord ered By: John Brownlee on 03-11-2023 Ketones Ql (U) 5 mg/dl Negative [facility] - Chemistry and C hemistry - challengeOrdered By: John Brownlee on 03-11-2023 CO2 [Moles/Vol] 25.0 mmol/L 21.0-32.0 [facility] Natriuretic peptide B (Bld) [Mass/Vol] 20.1 pg/mL 0-100 [facility] Urea nitrogen/Creatinine [Mass ratio] 22.1 mg/mg 10-20 [facility] - Hematology and Cell countsOrdered By: John Brownlee on 03-11-2023 MCH (RBC) [Entitic mass] 30.4 pg 27.0-32.0 [facility] MCHC (RBC) [Mass/Vol] 32.3 g/dL 32-36 [facility] Myelocytes/100 WBC (Bld) 2 % 0-0 [facility] Platelets (Bld) [#/Vol] 176 10*3/uL 150-450 [facility] - Microbiology an d Antimicrobial susceptibilityOrdered By: John Brownlee on 03-11-2023 SARS-CoV-2 (COVID-19) RNA ISHA+probe Ql (Unsp spec) [facility] Mucus LM Ql (Urine sed)Order ed By: John Brownlee on 03-11-2023 Mucus Ql (Urine sed) 0 SEEN /hpf [facility] Nitrite Test strip Ql (U)Ord ered By: John Brownlee on 03-11-2023 Nitrite Ql (U) Negative Negative [facility] No Panel InformationOrdered By: John Brownlee on 03-11-2023 Urine RBC 0 SEEN /hpf 0-5 [facility] Estimated Creatinine Clearance Calc 55.63 ml/min [facility] Estimated GFR (MDRD) Amer 81 mL/min >60 [facility] Comment on above: GFR Calc Estimated GFR (MDRD) Non-Af Amer 67 mL/min >60 [facility] Comment on above: Non- GFR Calc Troponin I High Sensitivity 9 pg/mL 3.0-78.0 [facility] Comment on above: Please Note: New Lianna t Units and Gender Specific Reference Ranges. For more information see Policy Stat Procedure [place] High Sensitivity Troponin (TNIH) and attachments. Platelet mean volume [facility] (Bld) [Entitic vol]Ordered By: John Brownlee on 03-11-2023 Platelet mean volume (Bld) [Entitic vol] 9.0 fL 6.2-12.0 [facility] Protein Test strip Ql (U)Ord ered By: John Brownlee on 03-11-2023 Protein Ql (U) 30 mg/dl Negative [facility] RBC Auto (Bld) [#/Vol]Ordere d By: John Brownlee on 03-11-2023 RBC (Bld) [#/Vol] 3.78 10*6/uL 4.6-6.2 [facility] RBC morphologyOrdered By: Do jacob Brownlee on 03-11-2023 RBC morphology finding Nom (Bld) NORM C+C NORMAL NORM C&C [facility] Review by pathologistOrdered By: John Brownlee on 03-11-2023 Pathologist review John (Unsp spec) [Interp] Aida garcia [facility] Pathologist review John (Unsp spec) [Interp] Reviewed [facility] Comment on above: Previous reported re sult: Aida garcia Edited by: RGOSTEFFEN on 03/13/23:0933Neutrophilic left shift.Macrocytic anemia.NRBCs are noted.Clinical correlation necessary.Thad Arellano M.D. 03/13/23 AMENDED REPORT 03/13/23 0933 PATH REV previously reported as: Aida garcia Serum or plasma calcium evette urement (mass/volume)Ordered By: John Brownlee on 03-11-2023 Calcium [Mass/Vol] 9.5 mg/dL 8.5-10.1 [facility] Serum or plasma creatinine m easurement (mass/volume)Ordered By: John Brownlee on 03-11-2023 Creatinine [Mass/Vol] 1.13 mg/dL 0.70-1.30 [facility] Comment on above: The validity of the calculated GFR & GFRAA in patients over 70 years has not been determined. Clinical correlation is essential. Serum or plasma urea nitroge n measurement (mass/volume)Ordered By: John Brownlee on 03-11-2023 Urea nitrogen [Mass/Vol] 25 mg/dL -18 [facility] Squamous epithelial cells de tection in urine sediment by light microscopyOrdered By: John Brownlee on 03-11-2023 Epithelial cells.squamous LM Ql (Urine sed) 0-5 SEEN /hpf 0-5 [facility] Thin prep Papanicolaou smear with manual screeningOrdered By: John Brownlee on 03-11-2023 Thin prep Papanicolaou smear with manual screening 10 5-15 [facility] Total cell countOrdered By: John Brownlee on 03-11-2023 Cells counted Molgen (Bld/Tiss) [#] 100 MANUAL DIFF [facility] Urine blood detectionOrdered By: John Brownlee on 03-11-2023 RBC Ql (U) Negative Negative [facility] Urine clarityOrdered By: Wellington Brownlee on 03-11-2023 Clarity (U) Sl. Cloudy Clear [facility] Urine color determinationOrd ered By: John Brownlee on 03-11-2023 Color (U) Yellow Yellow [facility] Urine glucose detectionOrder ed By: John Brownlee on 03-11-2023 Glucose Ql (U) 1000 mg/dl Normal [facility] Urine leukocyte esterase det ection by dipstickOrdered By: John Brownlee on 03-11-2023 Leukocyte esterase Test strip Ql (U) 25 /ul Negative [facility] Urine pHOrdered By: John herrera on 03-11-2023 pH (U) 7.0 [pH] 5.0 - 8.0 [facility] Urine sediment bacteria coun t by microscopy (number/high power field)Ordered By: John Brownlee on 03-11-2023 Bacteria LM.HPF (Urine sed) [#/Area] 0 /[HPF] None Seen [facility] Urine specific gravity measu rementOrdered By: John Brownlee on 03-11-2023 Specific gravity (U) [Rel density] 1.015 1.002-1.03 0 [facility] Urine urobilinogen measureme ntOrdered By: John Brownlee on 03-11-2023 Urobilinogen Ql (U) 4 mg/dl Normal [facility] Absolute lymphocyte countOrd ered By: German Roca on 02-20-2023 Lymphocytes Auto (Unsp spec) [#/Vol] 0.58 10*3/uL 0.83-4.51 [facility] Basophil percentageOrdered B y: German Roca on 02-20-2023 Basophil percentage 0 SEEN /hpf 0-5 [facility] Basophils/100 WBC (Bld) 0.3 % 0-1 [facility] Bilirubin [Mass/Vol] 1.00 mg/dL 0.20-1.00 [facility] Comment on above: For patients on eltr ombopag therapy, use of Dimension [place] TBIL is not recommended. Chloride [Moles/Vol] 97 mmol/L 98-107 [facility] Eosinophils/100 WBC (Bld) 0.6 % 0-5 [facility] Glucose [Mass/Vol] 186 mg/dL 74-106 [facility] Comment on above: Fasting Glucose resu lt greater than or equal to 126 mg/dL suggests DIABETES MELLITUS per A.D.A. criteria. LDH [Catalytic activity/Vol] 189 U/L 87-241 [facility] Neutrophils (Bld) [#/Vol] 2.1 10*3/uL 2.0-7.7 [facility] Neutrophils/100 WBC (Bld) 68.5 % 47-70 [facility] Potassium [Moles/Vol] 4.2 mmol/L 3.5-5.1 [facility] Protein [Mass/Vol] 6.1 g/dL 6.4-8.2 [facility] Sodium [Moles/Vol] 132 mmol/L 136-145 [facility] WBC (Bld) [#/Vol] 3.1 10*3/uL 4.4-11.0 [facility] Bilirubin Test strip Ql (U)O rdered By: German Roca on 02-20-2023 Bilirubin Ql (U) Negative Negative [facility] Blood erythrocytes count (nu mber/volume)Ordered By: German Roca on 02-20-2023 RBC (Bld) [#/Vol] 2.86 10*6/uL 4.6-6.2 [facility] Blood hemoglobin measurement (mass/volume)Ordered By: German Roca on 02-20-2023 Hemoglobin (Bld) [Mass/Vol] 8.5 g/dL 13.0-16.5 [facility] Blood lymphocytes/100 leukoc ytesOrdered By: German Roca on 02-20-2023 Lymphocytes/100 WBC (Bld) 18.7 % 19-41 [facility] Blood manual differential co mment interpretation (narrative result)Ordered By: German Roca on 02-20-2023 Manual differential comment John (Bld) [Interp] SCANNED [facility] Blood monocytes/100 leukocyt esOrdered By: German Roca on 02-20-2023 Monocytes/100 WBC (Bld) 10.0 % 0-10 [facility] [facility] Blood platelet mean volumeOr dered By: German Roca on 02-20-2023 Platelet mean volume (Bld) [Entitic vol] 8.6 fL 6.2-12.0 [facility] Determination of erythrocyte mean corpuscular volume (MCV)Ordered By: German Roca on 02-20-2023 MCV (RBC) [Entitic vol] 92.3 fL 80-94 [facility] Erythrocyte sedimentation ra teOrdered By: German Roca on 02-20-2023 ESR (Bld) [Velocity] 15 mm/h 0-20 [facility] Hematocrit Auto (Bld) [Volum e fraction]Ordered By: German Roca on 02-20-2023 Hematocrit (Bld) [Volume fraction] 26.4 % 40-54 [facility] Hemoglobin in reticulocytes (mass per reticulocyte)Ordered By: German Roca on 02-20-2023 Hemoglobin (Reticulocytes) [Entitic mass] 34.3 pg 30-35 [facility] Iron measurement (mass/mass) Ordered By: German Roca on 02-20-2023 Iron (Unsp spec) [Mass/Mass] 30 ug/dL 65-175 [facility] Ketones Test strip Ql (U)Ord ered By: German Roca on 02-20-2023 Ketones Ql (U) Negative Negative [facility] Laboratory - Chemistry and C hemistry - challengeOrdered By: German Roca on 02-20-2023 ALP [Catalytic activity/Vol] 87 U/L 45-117 [facility] ALT [Catalytic activity/Vol] 14 U/L 16-61 [facility] CO2 [Moles/Vol] 29.0 mmol/L 21.0-32.0 [facility] Cobalamin (Vitamin B12) [Mass/Vol] 481 pg/mL 211-911 [facility] Globulin (S) [Mass/Vol] 3.1 g/dL 2.2-4.2 [facility] Urea nitrogen/Creatinine [Mass ratio] 22.8 mg/mg 10-20 [facility] Laboratory - Hematology and Cell countsOrdered By: German Roca on 02-20-2023 Erythrocyte distribution width (RBC) [Entitic vol] 60.0 fL 35.1-43.9 [facility] Erythrocyte distribution width (RBC) [Ratio] 17.7 % 11.6-14.6 [facility] Immature granulocytes/100 WBC (Bld) 1.900 % 0.0-0.9 [facility] Comment on above: IG% - Immature Granu locytes (promyelocytes, myelocytes and metamyelocytes) > 1% indicates that a LEFT SHIFT is Present. MCH (RBC) [Entitic mass] 29.7 pg 27.0-32.0 [facility] Nucleated RBC/100 WBC (Bld) [Ratio] 0.6 % 0-5 [facility] MCHC Auto (RBC) [Mass/Vol]Or dered By: German Roca on 02-20-2023 MCHC (RBC) [Mass/Vol] 32.2 g/dL 32-36 [facility] Mucus LM Ql (Urine sed)Order ed By: German Roca on 02-20-2023 Mucus Ql (Urine sed) 0 SEEN /hpf [facility] Nitrite Test strip Ql (U)Ord ered By: German Roca on 02-20-2023 Nitrite Ql (U) Negative Negative [facility] No Panel InformationOrdered By: German Roca on 02-20-2023 Estimated Creatinine Clearance Calc 62.86 ml/min [facility] Estimated GFR (MDRD) Amer 130 mL/min >60 [facility] Comment on above: GFR Calc Estimated GFR (MDRD) Non-Af Amer 108 mL/min >60 [facility] Comment on above: Non- GFR Calc Immature Reticulocyte Fraction 10.80 % 3.00-15.90 [facility] Reactive Lymphocytes 1+ [facility] Reticulocyte Count 3.40 % 0.5-1.5 [facility] Total Iron Binding Capacity 238 ug/dL 250-450 [facility] Platelets bldOrdered By: Scotty Roca on 12-28-2023 Platelets (Bld) [#/Vol] 144 10*3/uL 150-450 [facility] Protein Test strip Ql (U)Ord ered By: German Roca on 02-20-2023 Protein Ql (U) Negative Negative [facility] Review by pathologistOrdered By: German Roca on 02-20-2023 Pathologist review John (Unsp spec) [Interp] Reviewed [facility] Comment on above: Previous reported re sult: Aida garcia Edited by: RGOOD on 02/21/23:1210Pancytopenia.Leukopenia and Neutropenia.Normocytic anemia.ThrombocytopeniaClinical correlation necessary.Thad Arellano M.D. 02/21/23 AMENDED REPORT 02/21/23 1210 PATH REV previously reported as: Aida garcia Serum or plasma albumin evette urement (mass/volume)Ordered By: German Roca on 02-20-2023 Albumin [Mass/Vol] 3.0 g/dL 3.2-5.0 [facility] Serum or plasma albumin/glob ulin mass ratioOrdered By: German Roca on 02-20-2023 Albumin/Globulin [Mass ratio] 1.0 {ratio} 0.9-2.4 [facility] Serum or plasma calcium evette urement (mass/volume)Ordered By: German Roca on 02-20-2023 Calcium [Mass/Vol] 9.0 mg/dL 8.5-10.1 [facility] Serum or plasma creatinine m easurement (mass/volume)Ordered By: German Roca on 02-20-2023 Creatinine [Mass/Vol] 0.75 mg/dL 0.70-1.30 [facility] Comment on above: The validity of the calculated GFR & GFRAA in patients over 70 years has not been determined. Clinical correlation is essential. Serum or plasma ferritin deborah surement (mass/volume)Ordered By: German Roca on 02-20-2023 Ferritin [Mass/Vol] 1408 ng/mL 26-388 [facility] Serum or plasma folate measu rement (mass/volume)Ordered By: German Roca on 02-20-2023 Folate [Mass/Vol] 24.60 ng/mL 3.1-55.4 [facility] Serum or plasma iron saturat ion measurement (mass fraction)Ordered By: German Roca on 02-20-2023 Iron saturation [Mass fraction] 12.6 % 15.0-55.0 [facility] Serum or plasma urea nitroge n measurement (mass/volume)Ordered By: German Roca on 02-20-2023 Urea nitrogen [Mass/Vol] 17 mg/dL 7-18 [facility] Squamous epithelial cells de tection in urine sediment by light microscopyOrdered By: German Roca on 02-20-2023 Epithelial cells.squamous LM Ql (Urine sed) 0 SEEN /hpf 0-5 [facility] Thin prep Papanicolaou smear with manual screeningOrdered By: German Roca on 02-20-2023 Thin prep Papanicolaou smear with manual screening 9 U/L 15-37 [facility] Thin prep Papanicolaou smear with manual screening 6 5-15 [facility] Urine blood detectionOrdered By: German Roca on 02-20-2023 RBC Ql (U) Negative Negative [facility] RBC Ql (U) 0 SEEN /hpf 0-5 [facility] Urine clarityOrdered By: Scotty Roca on 02-20-2023 Clarity (U) Clear Clear [facility] Urine color determinationOrd ered By: German Roca on 02-20-2023 Color (U) Yellow Yellow [facility] Urine glucose detectionOrder ed By: German Roca on 02-20-2023 Glucose Ql (U) Normal mg/dl Normal [facility] Urine leukocyte esterase det ection by dipstickOrdered By: German Roca on 02-20-2023 Leukocyte esterase Test strip Ql (U) Negative Negative [facility] Urine pHOrdered By: German mcdonald on 02-20-2023 pH (U) 7.0 [pH] 5.0 - 8.0 [facility] Urine sediment bacteria coun t by microscopy (number/high power field)Ordered By: German Roca on 02-20-2023 Bacteria LM.HPF (Urine sed) [#/Area] 0 /[HPF] None Seen [facility] Urine specific gravity measu rementOrdered By: German Roca on 02-20-2023 Specific gravity (U) [Rel density] 1.010 1.002-1.03 0 [facility] Urobilinogen Auto test strip Ql (U)Ordered By: German Roca on 02-20-2023 Urobilinogen Ql (U) Normal mg/dl Normal [facility] Stool gastrointestinal hemog lobin detection by immunologic methodOrdered By: German Roca on 01-24-2023 Lower GI hemoglobin IA Ql (Stl) [facility] Blood band neutrophil count as percentage of total leukocytesOrdered By: German Roca on 01-22-2023 Band form neutrophils/100 WBC (Bld) 2 % 0-5 [facility] Blood lymphocytes/100 leukoc ytesOrdered By: German Roca on 01-22-2023 Lymphocytes/100 WBC (Bld) 6 % 19-41 [facility] Blood monocytes/100 leukocyt esOrdered By: German Roca on 01-22-2023 Monocytes/100 WBC (Bld) 1 % 0-10 [facility] Blood platelet adequacy dete ction by light microscopyOrdered By: German Roca on 01-22-2023 Platelets LM Ql (Bld) ADEQUATE ADEQ [facility] Blood segmented neutrophils/ 100 leukocytesOrdered By: German Roca on 01-22-2023 Segmented neutrophils/100 WBC (Bld) 90 % 47-70 [facility] Laboratory - Hematology and Cell countsOrdered By: German Roca on 01-22-2023 Myelocytes/100 WBC (Bld) 1 % 0-0 [facility] RBC morphologyOrdered By: Gypsy Roca on 01-22-2023 RBC morphology finding Nom (Bld) NORM C+C NORMAL NORM C&C [facility] Total cell countOrdered By: German Roca on 01-22-2023 Cells counted Molgen (Bld/Tiss) [#] 100 MANUAL DIFF [facility] 36on 12-31-2022 36 Error. Normal [facility] Laboratory - Microbiology an d Antimicrobial susceptibilityon 12-11-2022 S. pyogenes Ag IA Ql (Unsp spec) Negative [facility] No Panel InformationOrdered By: Kev Diaz on 10-21-2022 Prostate Specific Antigen Total 0.06 ng/mL 0.0-4.0 [facility] Comment on above: This test was perfor med using the TPSA assay method for the[employer] chemistry system. Values obtained with differentassay methods cannot be used interchangably.When changing PSA assays in the course of monitoring apatient, additional sequential testing should be carriedout to confirm baseline values. Absolute lymphocyte countOrd ered By: Dianne Donnelly on 09-23-2022 Lymphocytes Auto (Unsp spec) [#/Vol] 0.61 10*3/uL 0.83-4.51 [facility] Alternaria alternata IgE ser umOrdered By: Dianne Donnelly on 09-23-2022 A. alternata IgE Qn (S) <0.10 kU/L Class 0 [facility] Basophil percentageOrdered B y: Dianne Donnelly on 09-23-2022 Basophils/100 WBC (Bld) 0.3 % 0-1 [facility] Eosinophils/100 WBC (Bld) 0.5 % 0-5 [facility] Neutrophils (Bld) [#/Vol] 2.7 10*3/uL 2.0-7.7 [facility] Neutrophils/100 WBC (Bld) 74.5 % 47-70 [facility] WBC (Bld) [#/Vol] 3.7 10*3/uL 4.4-11.0 [facility] Blood erythrocytes count (nu mber/volume)Ordered By: Dianne Donnelly on 09-23-2022 RBC (Bld) [#/Vol] 3.59 10*6/uL 4.6-6.2 [facility] Blood hemoglobin measurement (mass/volume)Ordered By: Dianne Donnelly on 09-23-2022 Hemoglobin (Bld) [Mass/Vol] 11.1 g/dL 13.0-16.5 [facility] Blood lymphocytes/100 leukoc ytesOrdered By: Dianne Donnelly on 09-23-2022 Lymphocytes/100 WBC (Bld) 16.7 % 19-41 [facility] Blood monocytes/100 leukocyt esOrdered By: Dianne Donnelly on 09-23-2022 Monocytes/100 WBC (Bld) 6.6 % 0-10 [facility] Blood platelet mean volumeOr dered By: Dianne Donnelly on 09-23-2022 Platelet mean volume (Bld) [Entitic vol] 8.9 fL 6.2-12.0 [facility] Determination of erythrocyte mean corpuscular volume (MCV)Ordered By: Dianne Donnelly on 09-23-2022 MCV (RBC) [Entitic vol] 93.9 fL 80-94 [facility] Hematocrit Auto (Bld) [Volum e fraction]Ordered By: Dianne Donnelly on 09-23-2022 Hematocrit (Bld) [Volume fraction] 33.7 % 40-54 [facility] Laboratory - Hematology and Cell countsOrdered By: Dianne Donnelly on 09-23-2022 Erythrocyte distribution width (RBC) [Entitic vol] 46.0 fL 35.1-43.9 [facility] Erythrocyte distribution width (RBC) [Ratio] 13.5 % 11.6-14.6 [facility] Immature granulocytes/100 WBC (Bld) 1.400 % 0.0-0.9 [facility] Comment on above: IG% - Immature Granu locytes (promyelocytes, myelocytes and metamyelocytes) > 1% indicates that a LEFT SHIFT is Present. MCH (RBC) [Entitic mass] 30.9 pg 27.0-32.0 [facility] Nucleated RBC/100 WBC (Bld) [Ratio] 1.6 % 0-5 [facility] Laboratory - Miscellaneous t estsOrdered By: Dianne Donnelly on 09-23-2022 Service comment (Unsp spec) [Interp] Comment . [facility] Comment on above: Levels of Specific I gE Class Description of Class ----- < 0.10 0 Negative 0.10 - 0.31 0/I Equivocal/Low 0.32 - 0.55 I Low 0.56 - 1.40 II Moderate 1.41 - 3.90 III High 3.91 - 19.00 IV Very High 19.01 - 100.00 V Very High >100.00 [facility] MCH[facility] Auto (RBC) [Mass/Vol]Or dered By: Dianne Donnelly on 09-23-2022 MCHC (RBC) [Mass/Vol] 32.9 g/dL 32-36 [facility] No Panel InformationOrdered By: Dianne Donnelly on 09-23-2022 Common Ragweed (Short) Allergen <0.10 kU/L Class 0 [facility] Taiwanese Plantain Allergen (RAST) <0.10 kU/L Class 0 [facility] Immunoglobulin E 45 IU/mL 6-495 [facility] Comment on above: Performed at: [facility] [address] [id number] Director: Randal Lam MD, Phone: [phone] Mouse Urine Allergen IgE Antibody <0.10 kU/L Class 0 [facility] Comment on above: Performed at: [facility] [address] [id number] Director: Randal Lam MD, Phone: [phone] Platelets bldOrdered By: Emerson Donnelly on 09-23-2022 Platelets (Bld) [#/Vol] 125 10*3/uL 150-450 [facility] Serum Aspergillus flavus ant ibody detection by immunodiffusionOrdered By: Dianne Donnelly on 09-23-2022 A. flavus Ab Immune diff Ql (S) Negative Neg:<1:1 [facility] Serum Aspergillus fumigatus antibody detection by immunodiffusionOrdered By: Dianne Donnelly on 09-23-2022 A. fumigatus Ab Immune diff Ql (S) Negative Neg:<1:1 [facility] Serum Aspergillus niger anti body detection by immunodiffusionOrdered By: Dianne Donnelly on 09-23-2022 A. niger Ab Immune diff Ql (S) Negative Neg:<1:1 [facility] Serum Bermuda grass IgE anti body assay (units/volume)Ordered By: Dianne Donnelly on 09-23-2022 Bermuda grass IgE Qn (S) <0.10 kU/L Class 0 [facility] Serum Dermatophagoides farin ae specific IgE antibody assay (units/volume)Ordered By: Dianne Donnelly on 09-23-2022 Malawian house dust mite IgE Qn (S) <0.10 kU/L Class 0 [facility] Serum house dust mi te IgE antibody assay (units/volume)Ordered By: Dianne Donnelly on 09-23-2022 house dust mite IgE Qn (S) <0.10 kU/L Class 0 [facility] Serum [place] blue grass Ig E antibody assay (units/volume)Ordered By: Dianne Donnelly on 09-23-2022 [place] blue grass IgE Qn (S) <0.10 kU/L Class 0 [facility] Serum cat dander IgE antibod y assay (units/volume)Ordered By: Dianne Donnelly on 09-23-2022 Cat dander IgE Qn (S) <0.10 kU/L Class 0 [facility] Serum dog epithelium IgE ant ibody assay (units/volume)Ordered By: Dianne Donnelly on 09-23-2022 Dog epithelium IgE Qn (S) <0.10 kU/L Class 0 [facility] Serum white elm IgE antibody assay (units/volume)Ordered By: Dianne Donnelly on 09-23-2022 White Elm IgE Qn (S) 0.15 kU/L Class 0/I [facility] Serum white oak IgE antibody assay (units/volume)Ordered By: Dianne Donnelly on 09-23-2022 Emporium IgE Qn (S) <0.10 kU/L Class 0 [facility] Absolute lymphocyte countOrd ered By: Shreyas Amezquita on 07-08-2022 Lymphocytes Auto (Unsp spec) [#/Vol] 0.49 10*3/uL 0.83-4.51 [facility] Basophil percentageOrdered B y: Shreyas Amezquita on 07-08-2022 Basophils/100 WBC (Bld) 0.0 % 0-1 [facility] Bilirubin [Mass/Vol] 0.80 mg/dL 0.20-1.00 [facility] Comment on above: For patients on eltr ombopag therapy, use of Dimension [place] TBIL is not recommended. Chloride [Moles/Vol] 104 mmol/L 98-107 [facility] Cholesterol [Mass/Vol] 139 mg/dL <200 [facility] Comment on above: <200 mg/dL Desirable 200-240 mg/dL Borderline >240 mg/dL High Risk Eosinophils/100 WBC (Bld) 0.4 % 0-5 [facility] Glucose [Mass/Vol] 184 mg/dL 74-106 [facility] Comment on above: Fasting Glucose resu lt greater than or equal to 126 mg/dL suggests DIABETES MELLITUS per A.D.A. criteria. Neutrophils (Bld) [#/Vol] 2.1 10*3/uL 2.0-7.7 [facility] Neutrophils/100 WBC (Bld) 75.1 % 47-70 [facility] Potassium [Moles/Vol] 4.1 mmol/L 3.5-5.1 [facility] Protein [Mass/Vol] 6.8 g/dL 6.4-8.2 [facility] Sodium [Moles/Vol] 141 mmol/L 136-145 [facility] Triglyceride [Mass/Vol] 68 mg/dL <199 [facility] Comment on above: The drugs N-Acetylcy steine and Metamizole may falsely depress this assay.Serum Triglycerides Reference Interval Normal <150 mg/dL Borderline high 150 - 199 mg/dL High 200 - 499 mg/dL Very High > or = 500 mg/dL WBC (Bld) [#/Vol] 2.8 10*3/uL 4.4-11.0 [facility] Blood erythrocytes count (nu mber/volume)Ordered By: Shreyas Amezquita on 07-08-2022 RBC (Bld) [#/Vol] 3.63 10*6/uL 4.6-6.2 [facility] Blood hemoglobin measurement (mass/volume)Ordered By: Shreyas Amezquita on 07-08-2022 Hemoglobin (Bld) [Mass/Vol] 11.5 g/dL 13.0-16.5 [facility] Blood lymphocytes/100 leukoc ytesOrdered By: Shreyas Amezquita on 07-08-2022 Lymphocytes/100 WBC (Bld) 17.4 % 19-41 [facility] Blood manual differential co mment interpretation (narrative result)Ordered By: Srheyas Amezquita on 07-08-2022 Manual differential comment John (Bld) [Interp] SCANNED [facility] Comment on above: LYMPHOPENIA NOTED Blood monocytes/100 leukocyt esOrdered By: Shreyas Amezquita on 07-08-2022 Monocytes/100 WBC (Bld) 6.0 % 0-10 [facility] Blood platelet mean volumeOr dered By: Shreyas Amezquita on 07-08-2022 Platelet mean volume (Bld) [Entitic vol] 9.3 fL 6.2-12.0 [facility] Determination of erythrocyte mean corpuscular volume (MCV)Ordered By: Shreyas mAezquita on 07-08-2022 MCV (RBC) [Entitic vol] 94.2 fL 80-94 [facility] Hematocrit Auto (Bld) [Volum e fraction]Ordered By: Shreyas Amezquita on 07-08-2022 Hematocrit (Bld) [Volume fraction] 34.2 % 40-54 [facility] Laboratory - Chemistry and C hemistry - challengeOrdered By: Shreyas Amezquita on 07-08-2022 ALP [Catalytic activity/Vol] 112 U/L 45-117 [facility] ALT [Catalytic activity/Vol] 20 U/L 16-61 [facility] CO2 [Moles/Vol] 29.0 mmol/L 21.0-32.0 [facility] Globulin (S) [Mass/Vol] 3.2 g/dL 2.2-4.2 [facility] Urea nitrogen/Creatinine [Mass ratio] 23.5 mg/mg 10-20 [facility] - Hematology and Cell countsOrdered By: Shreyas Amezquita on 07-08-2022 Erythrocyte distribution width (RBC) [Entitic vol] 44.2 fL 35.1-43.9 [facility] Erythrocyte distribution width (RBC) [Ratio] 12.8 % 11.6-14.6 [facility] Immature granulocytes/100 WBC (Bld) 1.100 % 0.0-0.9 [facility] Comment on above: IG% - Immature Granu locytes (promyelocytes, myelocytes and metamyelocytes) > 1% indicates that a LEFT SHIFT is Present. MCH (RBC) [Entitic mass] 31.7 pg 27.0-32.0 [facility] Nucleated RBC/100 WBC (Bld) [Ratio] 0 % 0-5 [facility] MCHC Auto (RBC) [Mass/Vol]Or dered By: Shreyas Amezquita on 07-08-2022 MCHC (RBC) [Mass/Vol] 33.6 g/dL 32-36 [facility] No Panel InformationOrdered By: Shreyas Amezquita on 07-08-2022 Estimated GFR (MDRD) Amer 96 mL/min >60 [facility] Comment on above: GFR Calc Estimated GFR (MDRD) Non-Af Amer 79 mL/min >60 [facility] Comment on above: Non- GFR Calc Prostate Specific Antigen Screen 0.06 ng/mL 0.00-4.00 [facility] Comment on above: This test was perfor med using the TPSA assay method for the[employer] chemistry system. Values obtained with differentassay methods cannot be used interchangably.When changing PSA assays in the course of monitoring apatient, additional sequential testing should be carriedout to confirm baseline values. Thyroid Stimulating Hormone (TSH) 2.85 uIU/mL 0.358-3.74 [facility] Urine Microalbumin/Creatinine Ratio 6.7 mg/g CRE <30 [facility] Platelets bldOrdered By: Laury Amezquita on 07-08-2022 Platelets (Bld) [#/Vol] 170 10*3/uL 150-450 [facility] Serum or plasma albumin evette urement (mass/volume)Ordered By: Shreyas Amezquita on 07-08-2022 Albumin [Mass/Vol] 3.6 g/dL 3.2-5.0 [facility] Serum or plasma albumin/glob ulin mass ratioOrdered By: Shreyas Amezquita on 07-08-2022 Albumin/Globulin [Mass ratio] 1.1 {ratio} 0.9-2.4 [facility] Serum or plasma calcium evette urement (mass/volume)Ordered By: Shreyas Amezquita on 07-08-2022 Calcium [Mass/Vol] 9.1 mg/dL 8.5-10.1 [facility] Serum or plasma cholesterol in HDL measurement (mass/volume)Ordered By: Shreyas Amezquita on 07-08-2022 Cholesterol in HDL [Mass/Vol] 76 mg/dL >40 [facility] Comment on above: The drugs N-Acetylcy steine and Metamizole may falsely depress this assay. Reference Range HDL <40 mg/dL Low HDL Cholesterol HDL >or= 60 mg/dL High HDL Cholesterol Serum or plasma cholesterol in VLDL measurement (mass/volume)Ordered By: Shreyas Amezquita on 07-08-2022 Cholesterol in VLDL [Mass/Vol] 14 mg/dL 5-40 [facility] Serum or plasma creatinine m easurement (mass/volume)Ordered By: Shreyas Amezquita on 07-08-2022 Creatinine [Mass/Vol] 0.98 mg/dL 0.70-1.30 [facility] Comment on above: The validity of the calculated GFR & GFRAA in patients over 70 years has not been determined. Clinical correlation is essential. Serum or plasma low density lipoprotein (LDL) cholesterol measurement (mass/volume)Ordered By: Shreyas Amezquita on 07-08-2022 Cholesterol in LDL [Mass/Vol] 49 mg/dL 0-130 [facility] Serum or plasma urea nitroge n measurement (mass/volume)Ordered By: Shreyas Amezquita on 07-08-2022 Urea nitrogen [Mass/Vol] 23 mg/dL 7-18 [facility] Thin prep Papanicolaou smear with manual screeningOrdered By: Shreyas Amezquita on 07-08-2022 Thin prep Papanicolaou smear with manual screening 14 U/L 15-37 [facility] Thin prep Papanicolaou smear with manual screening 8 5-15 [facility] Thin prep Papanicolaou smear with manual screening 11.2 mg/L NO RANGE EST. [facility] Urine creatinine measurement (mass/volume)Ordered By: Shreyas Amezquita on 07-08-2022 Creatinine (U) [Mass/Vol] 166.00 mg/dL NO RANGE EST. [facility] Whole blood hemoglobin A1c/t otal hemoglobin ratio (mass fraction)Ordered By: Shreyas Amezquita on 07-08-2022 HbA1c (Bld) [Mass fraction] 7.3 % 3.8-5.6 [facility] Comment on above: Normal < 5.7 % Predi abetic 5.7 - 6.4 % Diabetic >or= 6.5 % Please note range changes. No Panel Informationon 05-28 POC SARS CoV-2 Antigen Negative [facility] Absolute lymphocyte countOrd ered By: Dr. Amezquita on 03-22-2022 Lymphocytes Auto (Unsp spec) [#/Vol] 0.81 10*3/uL 0.83-4.51 [facility] Basophil percentageOrdered B y: Dr. Amezquita on 03-22-2022 Basophils/100 WBC (Bld) 0.2 % 0-1 [facility] Bilirubin [Mass/Vol] 1.10 mg/dL 0.20-1.00 [facility] Comment on above: For patients on eltr ombopag therapy, use of Dimension [place] TBIL is not recommended. Chloride [Moles/Vol] 105 mmol/L 98-107 [facility] Eosinophils/100 WBC (Bld) 1.1 % 0-5 [facility] Glucose [Mass/Vol] 144 mg/dL 74-106 [facility] Comment on above: Fasting Glucose resu lt greater than or equal to 126 mg/dL suggests DIABETES MELLITUS per A.D.A. criteria. Neutrophils (Bld) [#/Vol] 3.2 10*3/uL 2.0-7.7 [facility] Neutrophils/100 WBC (Bld) 72.4 % 47-70 [facility] Potassium [Moles/Vol] 4.3 mmol/L 3.5-5.1 [facility] Protein [Mass/Vol] 6.8 g/dL 6.4-8.2 [facility] Sodium [Moles/Vol] 138 mmol/L 136-145 [facility] WBC (Bld) [#/Vol] 4.4 10*3/uL 4.4-11.0 [facility] Blood erythrocytes count (nu mber/volume)Ordered By: Dr. Amezquita on 03-22-2022 RBC (Bld) [#/Vol] 4.04 10*6/uL 4.6-6.2 [facility] Blood hemoglobin measurement (mass/volume)Ordered By: Dr. Amezquita on 03-22-2022 Hemoglobin (Bld) [Mass/Vol] 12.6 g/dL 13.0-16.5 [facility] Blood lymphocytes/100 leukoc ytesOrdered By: Dr. Amezquita on 03-22-2022 Lymphocytes/100 WBC (Bld) 18.4 % 19-41 [facility] Blood monocytes/100 leukocyt esOrdered By: Dr. Amezquita on 03-22-2022 Monocytes/100 WBC (Bld) 6.8 % 0-10 [facility] Blood platelet mean volumeOr dered By: Dr. Amezquita on 03-22-2022 Platelet mean volume (Bld) [Entitic vol] 10.7 fL 6.2-12.0 [facility] Determination of erythrocyte mean corpuscular volume (MCV)Ordered By: Dr. Amezquita on 03-22-2022 MCV (RBC) [Entitic vol] 96.0 fL 80-94 [facility] Hematocrit Auto (Bld) [Volum e fraction]Ordered By: Dr. Amezquita on 03-22-2022 Hematocrit (Bld) [Volume fraction] 38.8 % 40-54 [facility] - Chemistry and C hemistry - challengeOrdered By: Dr. Amezquita on 03-22-2022 ALP [Catalytic activity/Vol] 88 U/L 45-117 [facility] ALT [Catalytic activity/Vol] 18 U/L 16-61 [facility] CO2 [Moles/Vol] 24.0 mmol/L 21.0-32.0 [facility] [facility] Glob[facility] (S) [Mass/Vol] 3.3 g/dL 2.2-4.2 [facility] Urea nitrogen/Creatinine [Mass ratio] 23.0 mg/mg 10-20 [facility] - Hematology and Cell countsOrdered By: Dr. Amezquita on 03-22-2022 Erythrocyte distribution width (RBC) [Entitic vol] 46.5 fL 35.1-43.9 [facility] Erythrocyte distribution width (RBC) [Ratio] 13.1 % 11.6-14.6 [facility] Immature granulocytes/100 WBC (Bld) 1.100 % 0.0-0.9 [facility] Comment on above: IG% - Immature Granu locytes (promyelocytes, myelocytes and metamyelocytes) > 1% indicates that a LEFT SHIFT is Present. MCH (RBC) [Entitic mass] 31.2 pg 27.0-32.0 [facility] Nucleated RBC/100 WBC (Bld) [Ratio] 0.5 % 0-5 [facility] MCHC Auto (RBC) [Mass/Vol]Or dered By: Dr. Amezquita on 03-22-2022 MCHC (RBC) [Mass/Vol] 32.5 g/dL 32-36 [facility] No Panel InformationOrdered By: Dr. Amezquita on 03-22-2022 Estimated GFR (MDRD) Amer 116 mL/min >60 [facility] Comment on above: GFR Calc Estimated GFR (MDRD) Non-Af Amer 96 mL/min >60 [facility] Comment on above: Non- GFR Calc Platelets bldOrdered By: Dr. Amezquita on 03-22-2022 Platelets (Bld) [#/Vol] 109 10*3/uL 150-450 [facility] Serum or plasma C reactive p rotein measurement (mass/volume)Ordered By: Dr. Amezquita on 03-22-2022 CRP [Mass/Vol] 22.70 mg/L 0.0-3.0 [facility] Comment on above: C-Reactive Protein ( CRP) provides useful information for thediagnosis, therapy and monitoring of inflammatory processesand associated diseases. For the evaluation of Relative Riskfor Cardiovascular Disease, a High Sensitivity CRP (HSCRP)should be ordered. Serum or plasma albumin evette urement (mass/volume)Ordered By: Dr. Amezquita on 03-22-2022 Albumin [Mass/Vol] 3.5 g/dL 3.2-5.0 [facility] Serum or plasma albumin/glob ulin mass ratioOrdered By: Dr. Amezquita on 03-22-2022 Albumin/Globulin [Mass ratio] 1.1 {ratio} 0.9-2.4 [facility] Serum or plasma calcium evette urement (mass/volume)Ordered By: Dr. Amezquita on 03-22-2022 Calcium [Mass/Vol] 9.1 mg/dL 8.5-10.1 [facility] Serum or plasma creatinine m easurement (mass/volume)Ordered By: Dr. Amezquita on 03-22-2022 Creatinine [Mass/Vol] 0.82 mg/dL 0.70-1.30 [facility] Comment on above: The validity of the calculated GFR & GFRAA in patients over 70 years has not been determined. Clinical correlation is essential. Serum or plasma urea nitroge n measurement (mass/volume)Ordered By: Dr. Amezquita on 03-22-2022 Urea nitrogen [Mass/Vol] 19 mg/dL 7-18 [facility] Thin prep Papanicolaou smear with manual screeningOrdered By: Dr. Amezquita on 03-22-2022 Thin prep Papanicolaou smear with manual screening 21 U/L 15-37 [facility] Thin prep Papanicolaou smear with manual screening 9 5-15 [facility] - Chemistry and C hemistry - challengeOrdered By: Dr. Amezquita on 02-04-2022 Free T4 [Mass/Vol] 1.17 ng/dL 0.76-1.46 [facility] No Panel InformationOrdered By: Dr. Amezquita on 02-04-2022 Thyroid Stimulating Hormone (TSH) 1.62 uIU/mL 0.358-3.74 [facility] Absolute lymphocyte countOrd ered By: Dr. Roca on 01-28-2022 Lymphocytes Auto (Unsp spec) [#/Vol] 0.92 10*3/uL 0.83-4.51 [facility] Basophil percentageOrdered B y: Dr. Roca on 01-28-2022 Basophils/100 WBC (Bld) 0.4 % 0-1 [facility] Bilirubin [Mass/Vol] 0.90 mg/dL 0.20-1.00 [facility] Comment on above: For patients on eltr ombopag therapy, use of Dimension [place] TBIL is not recommended. Chloride [Moles/Vol] 102 mmol/L 98-107 [facility] Eosinophils/100 WBC (Bld) 1.1 % 0-5 [facility] Glucose [Mass/Vol] 211 mg/dL 74-106 [facility] Comment on above: Glucose result great er than or equal to 200 mg/dLsuggests DIABETES MELLITUS per A.D.A. criteria. Neutrophils (Bld) [#/Vol] 4.1 10*3/uL 2.0-7.7 [facility] Neutrophils/100 WBC (Bld) 74.7 % 47-70 [facility] Potassium [Moles/Vol] 3.9 mmol/L 3.5-5.1 [facility] Protein [Mass/Vol] 7.0 g/dL 6.4-8.2 [facility] Sodium [Moles/Vol] 136 mmol/L 136-145 [facility] WBC (Bld) [#/Vol] 5.5 10*3/uL 4.4-11.0 [facility] Blood erythrocytes count (nu mber/volume)Ordered By: Dr. Roca on 01-28-2022 RBC (Bld) [#/Vol] 3.87 10*6/uL 4.6-6.2 [facility] Blood hemoglobin measurement (mass/volume)Ordered By: Dr. Roca on 01-28-2022 Hemoglobin (Bld) [Mass/Vol] 11.8 g/dL 13.0-16.5 [facility] Blood lymphocytes/100 leukoc ytesOrdered By: Dr. Roca on 01-28-2022 Lymphocytes/100 WBC (Bld) 16.6 % 19-41 [facility] Blood monocytes/100 leukocyt esOrdered By: Dr. Roca on 01-28-2022 Monocytes/100 WBC (Bld) 5.4 % 0-10 [facility] Blood platelet mean volumeOr dered By: Dr. Roca on 01-28-2022 Platelet mean volume (Bld) [Entitic vol] 8.7 fL 6.2-12.0 [facility] Determination of erythrocyte mean corpuscular volume (MCV)Ordered By: Dr. Roca on 01-28-2022 MCV (RBC) [Entitic vol] 91.5 fL 80-94 [facility] Hematocrit Auto (Bld) [Volum e fraction]Ordered By: Dr. Roca on 01-28-2022 Hematocrit (Bld) [Volume fraction] 35.4 % 40-54 [facility] Iron measurement (mass/mass) Ordered By: Dr. Roca on 01-28-2022 Iron (Unsp spec) [Mass/Mass] 85 ug/dL 65-175 [facility] - Chemistry and C hemistry - challengeOrdered By: Dr. Roca on 01-28-2022 ALP [Catalytic activity/Vol] 108 U/L 45-117 [facility] ALT [Catalytic activity/Vol] 16 U/L 16-61 [facility] CO2 [Moles/Vol] 30.0 mmol/L 21.0-32.0 [facility] Cobalamin (Vitamin B12) [Mass/Vol] 438 pg/mL 211-911 [facility] Globulin (S) [Mass/Vol] 3.3 g/dL 2.2-4.2 [facility] Urea nitrogen/Creatinine [Mass ratio] 19.2 mg/mg 10-20 [facility] - Hematology and Cell countsOrdered By: Dr. Roca on 01-28-2022 Erythrocyte distribution width (RBC) [Entitic vol] 47.8 fL 35.1-43.9 [facility] Erythrocyte distribution width (RBC) [Ratio] 14.3 % 11.6-14.6 [facility] Immature granulocytes/100 WBC (Bld) 1.800 % 0.0-0.9 [facility] Comment on above: IG% - Immature Granu locytes (promyelocytes, myelocytes and metamyelocytes) > 1% indicates that a LEFT SHIFT is Present. MCH (RBC) [Entitic mass] 30.5 pg 27.0-32.0 [facility] Nucleated RBC/100 WBC (Bld) [Ratio] 0.5 % 0-5 [facility] MCHC Auto (RBC) [Mass/Vol]Or dered By: Dr. Roca on 01-28-2022 MCHC (RBC) [Mass/Vol] 33.3 g/dL 32-36 [facility] No Panel InformationOrdered By: Dr. Roca on 01-28-2022 Estimated GFR (MDRD) Amer 115 mL/min >60 [facility] Comment on above: GFR Calc Estimated GFR (MDRD) Non-Af Amer 95 mL/min >60 [facility] Comment on above: Non- GFR Calc Total Iron Binding Capacity 355 ug/dL 250-450 [facility] Platelets bldOrdered By: Dr. Roca on 01-28-2022 Platelets (Bld) [#/Vol] 190 10*3/uL 150-450 [facility] Serum or plasma albumin evette urement (mass/volume)Ordered By: Dr. Roca on 01-28-2022 Albumin [Mass/Vol] 3.7 g/dL 3.2-5.0 [facility] Serum or plasma albumin/glob ulin mass ratioOrdered By: Dr. Roca on 01-28-2022 Albumin/Globulin [Mass ratio] 1.1 {ratio} 0.9-2.4 [facility] Serum or plasma calcium evette urement (mass/volume)Ordered By: Dr. Roca on 01-28-2022 Calcium [Mass/Vol] 9.7 mg/dL 8.5-10.1 [facility] Serum or plasma creatinine m easurement (mass/volume)Ordered By: Dr. Roca on 01-28-2022 Creatinine [Mass/Vol] 0.83 mg/dL 0.70-1.30 [facility] Comment on above: The validity of the calculated GFR & GFRAA in patients over 70 years has not been determined. Clinical correlation is essential. Serum or plasma ferritin deborah surement (mass/volume)Ordered By: Dr. Roca on 01-28-2022 Ferritin [Mass/Vol] 486 ng/mL 26-388 [facility] Serum or plasma iron saturat ion measurement (mass fraction)Ordered By: Dr. Roca on 01-28-2022 Iron saturation [Mass fraction] 23.9 % 15.0-55.0 [facility] Serum or plasma urea nitroge n measurement (mass/volume)Ordered By: Dr. Roca on 01-28-2022 Urea nitrogen [Mass/Vol] 16 mg/dL 7-18 [facility] Thin prep Papanicolaou smear with manual screeningOrdered By: Dr. Roca on 01-28-2022 Thin prep Papanicolaou smear with manual screening 11 U/L 15-37 [facility] Thin prep Papanicolaou smear with manual screening 4 5-15 [facility] Thin prep Papanicolaou smear with manual screening 142 U/L 87-241 [facility] Absolute lymphocyte counton 11-10-2021 Lymphocytes Auto (Unsp spec) [#/Vol] 0.75 10*3/uL 0.83-4.51 [facility] Work Phone: Basophil percentageon 2021 Basophils/100 WBC (Bld) 0.1 % 0-1 [facility] Work Phone: Chloride [Moles/Vol] 94 mmol/L 98-107 [facility] Work Phone: Eosinophils/100 WBC (Bld) 0.0 % 0-5 [facility] Work Phone: Glucose [Mass/Vol] 259 mg/dL 74-106 [facility] Work Phone: Comment on above: Glucose result great er than or equal to 200 mg/dLsuggests DIABETES MELLITUS per A.D.A. criteria. Neutrophils (Bld) [#/Vol] 12.0 10*3/uL 2.0-7.7 [facility] Work Phone: Neutrophils/100 WBC (Bld) 82.8 % 47-70 [facility] Work Phone: [phone] Potassium [Moles/Vol] 4.6 mmol/L 3.5-5.1 [facility] Work Phone: [phone] Comment on above: Moderate Hemolysis, Result may be falsely increased. Sodium [Moles/Vol] 129 mmol/L 136-145 [facility]: [phone] WBC (Bld) [#/Vol] 14.5 10*3/uL 4.4-11.0 [facility] Work [facility]: [phone] Blood erythrocytes count (nu mber/volume)on 11-10-2021 RBC (Bld) [#/Vol] 3.40 10*6/uL 4.6-6.2 [facility] Work Phone: [phone] Blood hemoglobin measurement (mass/volume)on 11-10-2021 Hemoglobin (Bld) [Mass/Vol] 10.3 g/dL 13.0-16.5 [facility] Work Phone: [phone] Blood lymphocytes/100 leukoc yteson 11-10-2021 Lymphocytes/100 WBC (Bld) 5.2 % 19-41 [facility] Work Phone: [phone] Blood monocytes/100 leukocyt eson 11-10-2021 Monocytes/100 WBC (Bld) 8.7 % 0-10 [facility] Work Phone: [phone] Blood platelet mean volumeon 11-10-2021 Platelet mean volume (Bld) [Entitic vol] 9.3 fL 6.2-12.0 [facility] Work Phone: [phone] Determination of erythrocyte mean corpuscular volume (MCV)on 11-10-2021 MCV (RBC) [Entitic vol] 90.9 fL 80-94 [facility] Work Phone: [phone] Hematocrit Auto (Bld) [Volum e fraction]on 11-10-2021 Hematocrit (Bld) [Volume fraction] 30.9 % 40-54 [facility] Work Phone: [phone] Laboratory - Chemistry and C hemistry - challengeon 11-10-2021 CO2 [Moles/Vol] 26.0 mmol/L 21.0-32.0 [facility] Work Phone: [phone] Urea nitrogen/Creatinine [Mass ratio] 26.2 mg/mg 10-20 [facility] Work Phone: [phone] Laboratory - Hematology and Cell countson 11-10-2021 Erythrocyte distribution width (RBC) [Entitic vol] 41.9 fL 35.1-43.9 [facility] Work Phone: [phone] Erythrocyte distribution width (RBC) [Ratio] 12.9 % 11.6-14.6 [facility] Work Phone: [phone] Immature granulocytes/100 WBC (Bld) 3.200 % 0.0-0.9 [facility] Work Phone: [phone] Comment on above: IG% - Immature Granu locytes (promyelocytes, myelocytes and metamyelocytes) > 1% indicates that a LEFT SHIFT is Present. MCH (RBC) [Entitic mass] 30.3 pg 27.0-32.0 [facility] Work Phone: [phone] Nucleated RBC/100 WBC (Bld) [Ratio] 0.2 % 0-5 [facility] Work Phone: [phone] MCHC Auto (RBC) [Mass/Vol]on 11-10-2021 MCHC (RBC) [Mass/Vol] 33.3 g/dL 32-36 [facility]: No Panel Informationon 11-10 Troponin I High Sensitivity 35 pg/mL 3.0-78.0 [facility] Work Phone: [phone] Comment on above: Please Note: New Lianna t Units and Gender Specific Reference Ranges. For more information see Policy Stat Procedure [place] High Sensitivity Troponin (TNIH) and attachments. Atypical Lymphocytes RARE % [facility] Work Phone: Estimated Creatinine Clearance Calc 59.70 ml/min [facility] Work Phone: Estimated GFR (MDRD) Amer 86 mL/min >60 [facility] Work Phone: Comment on above: GFR Calc Estimated GFR (MDRD) Non-Af Amer 71 mL/min >60 [facility] Work Phone: Comment on above: Non- GFR Calc Platelets bldon 11-10-2021 Platelets (Bld) [#/Vol] 210 10*3/uL 150-450 [facility] Work Phone: Serum or plasma calcium evette urement (mass/volume)on 11-10-2021 Calcium [Mass/Vol] 9.6 mg/dL 8.5-10.1 [facility] Work Phone: [phone] Serum or plasma creatinine m easurement (mass/volume)on 11-10-2021 Creatinine [Mass/Vol] 1.07 mg/dL 0.70-1.30 [facility] Work Phone: Comment on above: The validity of the calculated GFR & GFRAA in patients over 70 years has not been determined. Clinical correlation is essential. Serum or plasma urea nitroge n measurement (mass/volume)on 11-10-2021 Urea nitrogen [Mass/Vol] 28 mg/dL 7-18 [facility] Work Phone: [phone] Thin prep Papanicolaou smear with manual screeningon 11-10-2021 Thin prep Papanicolaou smear with manual screening 9 5-15 [facility] Work Phone: [phone] Laboratory - Microbiology an d Antimicrobial susceptibilityon 10-19-2021 SARS-CoV-2 (COVID-19) RNA ISHA+probe Ql (Unsp spec) Detected [facility] Work Phone: No Panel Informationon 10-19 Influenza Types A,B Rapid (Clinic) Not detected [facility] Work Phone: Stool gastrointestinal hemog lobin detection by immunologic methodOrdered By: Dr. oRca on 10-16-2021 Lower GI hemoglobin IA Ql (Stl) [facility] Absolute lymphocyte counton 10-15-2021 Lymphocytes Auto (Unsp spec) [#/Vol] 0.67 10*3/uL 0.83-4.51 [facility] Work Phone: Basophil percentageOrdered B y: Dr. Roca on 10-15-2021 Basophil percentage 3.2 mg/dL 2.5-4.9 [facility] Basophil percentageon 2021 Basophils/100 WBC (Bld) 0.2 % 0-1 [facility] Work Phone: Bilirubin [Mass/Vol] 0.90 mg/dL 0.20-1.00 [facility] Work Phone: Comment on above: For patients on eltr ombopag therapy, use of Dimension [place] TBIL is not recommended. Chloride [Moles/Vol] 100 mmol/L 98-107 [facility] Work Phone: Eosinophils/100 WBC (Bld) 0.4 % 0-5 [facility] Work Phone: Glucose [Mass/Vol] 145 mg/dL 74-106 [facility] Work Phone: Comment on above: Fasting Glucose resu lt greater than or equal to 126 mg/dL suggests DIABETES MELLITUS per A.D.A. criteria. Neutrophils (Bld) [#/Vol] 3.5 10*3/uL 2.0-7.7 [facility] Work Phone: Neutrophils/100 WBC (Bld) 77.1 % 47-70 [facility] Work Phone: Potassium [Moles/Vol] 3.8 mmol/L 3.5-5.1 [facility] Work Phone: Protein [Mass/Vol] 6.9 g/dL 6.4-8.2 [facility] Work Phone: Sodium [Moles/Vol] 136 mmol/L 136-145 [facility] Work Phone: WBC (Bld) [#/Vol] 4.6 10*3/uL 4.4-11.0 [facility] Work Phone: Blood erythrocytes count (nu mber/volume)on 10-15-2021 RBC (Bld) [#/Vol] 3.69 10*6/uL 4.6-6.2 [facility] Work Phone: Blood hemoglobin measurement (mass/volume)on 10-15-2021 Hemoglobin (Bld) [Mass/Vol] 11.6 g/dL 13.0-16.5 [facility] Work Phone: Blood lymphocytes/100 leukoc yteson 10-15-2021 Lymphocytes/100 WBC (Bld) 14.6 % 19-41 [facility] Work Phone: Blood monocytes/100 leukocyt eson 10-15-2021 Monocytes/100 WBC (Bld) 5.7 % 0-10 [facility] Work Phone: Blood platelet mean volumeon 10-15-2021 Platelet mean volume (Bld) [Entitic vol] 8.6 fL 6.2-12.0 [facility] Work Phone: Determination of erythrocyte mean corpuscular volume (MCV)on 10-15-2021 MCV (RBC) [Entitic vol] 93.2 fL 80-94 [facility] Work Phone: [phone] Erythrocyte sedimentation ra teOrdered By: Dr. Roca on 10-15-2021 ESR (Bld) [Velocity] 12 mm/h 0-20 [facility] Hematocrit Auto (Bld) [Volum e fraction]on 10-15-2021 Hematocrit (Bld) [Volume fraction] 34.4 % 40-54 [facility] Work Phone: [phone] Iron measurement (mass/mass) on 10-15-2021 Iron (Unsp spec) [Mass/Mass] 52 ug/dL 65-175 [facility] Work Phone: Laboratory - Chemistry and C hemistry - challengeon 10-15-2021 ALP [Catalytic activity/Vol] 100 U/L 45-117 [facility] Work Phone: [phone] ALT [Catalytic activity/Vol] 17 U/L 16-61 [facility] Work Phone: [phone] CO2 [Moles/Vol] 31.0 mmol/L 21.0-32.0 [facility] Work Phone: [phone] Cobalamin (Vitamin B12) [Mass/Vol] 451 pg/mL 211-911 [facility] Work Phone: [phone] Globulin (S) [Mass/Vol] 3.4 g/dL 2.2-4.2 [facility] Work Phone: [phone] Urea nitrogen/Creatinine [Mass ratio] 22.5 mg/mg 10-20 [facility] Work Phone: [phone] Laboratory - Chemistry and C hemistry - challengeOrdered By: Dr. Roca on 10-15-2021 Magnesium [Mass/Vol] 1.8 mg/dL 1.6-2.6 [facility] Laboratory - Hematology and Cell countson 10-15-2021 Erythrocyte distribution width (RBC) [Entitic vol] 43.3 fL 35.1-43.9 [facility] Work Phone: [phone] Erythrocyte distribution width (RBC) [Ratio] 12.7 % 11.6-14.6 [facility] Work Phone: [phone] Immature granulocytes/100 WBC (Bld) 2.000 % 0.0-0.9 [facility] Work Phone: [phone] Comment on above: IG% - Immature Granu locytes (promyelocytes, myelocytes and metamyelocytes) > 1% indicates that a LEFT SHIFT is Present. MCH (RBC) [Entitic mass] 31.4 pg 27.0-32.0 [facility] Work Phone: [phone] Nucleated RBC/100 WBC (Bld) [Ratio] 0.7 % 0-5 [facility] Work Phone: [phone] MCHC Auto (RBC) [Mass/Vol]on 10-15-2021 MCHC (RBC) [Mass/Vol] 33.7 g/dL 32-36 [facility] Work Phone: No Panel Informationon 10-15 Estimated GFR (MDRD) Amer 101 mL/min >60 [facility] Work Phone: Comment on above: GFR Calc Estimated GFR (MDRD) Non-Af Amer 84 mL/min >60 [facility] Work Phone: Comment on above: Non- GFR Calc Total Iron Binding Capacity 318 ug/dL 250-450 [facility] Work Phone: No Panel InformationOrdered By: Dr. Roca on 10-15-2021 Haptoglobin 56 mg/dL 34-355 [facility] Comment on above: Performed at: [facility] [employer] [id number] Director: Angel Luis Chappell PhD, Phone: [phone] Platelets bldon 10-15-2021 Platelets (Bld) [#/Vol] 157 10*3/uL 150-450 [facility] Work Phone: Serum or plasma albumin evette urement (mass/volume)on 10-15-2021 Albumin [Mass/Vol] 3.5 g/dL 3.2-5.0 [facility] Work Phone: Serum or plasma albumin/glob ulin mass ratioon 10-15-2021 Albumin/Globulin [Mass ratio] 1.0 {ratio} 0.9-2.4 [facility] Work Phone: Serum or plasma calcium evette urement (mass/volume)on 10-15-2021 Calcium [Mass/Vol] 8.7 mg/dL 8.5-10.1 [facility] Work Phone: [phone] Serum or plasma creatinine m easurement (mass/volume)on 10-15-2021 Creatinine [Mass/Vol] 0.93 mg/dL 0.70-1.30 [facility] Work Phone: Comment on above: The validity of the calculated GFR & GFRAA in patients over 70 years has not been determined. Clinical correlation is essential. Serum or plasma ferritin deborah surement (mass/volume)on 10-15-2021 Ferritin [Mass/Vol] 486 ng/mL 26-388 [facility] Work Phone: [phone] Serum or plasma folate measu rement (mass/volume)Ordered By: Dr. Roca on 10-15-2021 Folate [Mass/Vol] 34.50 ng/mL 3.1-55.4 [facility] Serum or plasma iron saturat ion measurement (mass fraction)on 10-15-2021 Iron saturation [Mass fraction] 16.4 % 15.0-55.0 [facility] Work Phone: [phone] Serum or plasma urea nitroge n measurement (mass/volume)on 10-15-2021 Urea nitrogen [Mass/Vol] 21 mg/dL 7-18 [facility] Work Phone: [phone] Thin prep Papanicolaou smear with manual screeningon 10-15-2021 Thin prep Papanicolaou smear with manual screening 14 U/L 15-37 [facility] Work Phone: [phone] Thin prep Papanicolaou smear with manual screening 5 5-15 [facility] Work Phone: [phone] Thin prep Papanicolaou smear with manual screening 176 U/L 87-241 [facility] Work Phone: Direct bilirubinon Bilirubin.direct [Mass/Vol] 0.23 mg/dL 0.00-0.30 [facility] Work Phone: Absolute lymphocyte counton 09-27-2021 Lymphocytes Auto (Unsp spec) [#/Vol] 0.85 10*3/uL 0.83-4.51 [facility] Work Phone: Basophil percentageon 2021 Basophil percentage Not Reportable [facility] Work Phone: [phone] Bilirubin [Mass/Vol] 1.30 mg/dL 0.20-1.00 [facility] Work Phone: [phone] Comment on above: For patients on eltr ombopag therapy, use of Dimension [place] TBIL is not recommended. Chloride [Moles/Vol] 106 mmol/L 98-107 [facility] Work Phone: Glucose [Mass/Vol] 284 mg/dL 74-106 [facility] Work Phone: Comment on above: Glucose result great er than or equal to 200 mg/dLsuggests DIABETES MELLITUS per A.D.A. criteria. Neutrophils (Bld) [#/Vol] 2.4 10*3/uL 2.0-7.7 [facility] Work Phone: Potassium [Moles/Vol] 3.8 mmol/L 3.5-5.1 [facility] Work Phone: [phone] Protein [Mass/Vol] 6.5 g/dL 6.4-8.2 [facility] Work Phone: Sodium [Moles/Vol] 138 mmol/L 136-145 [facility] Work Phone: [phone] WBC (Bld) [#/Vol] 3.4 10*3/uL 4.4-11.0 [facility] Work Phone: [phone] Blood erythrocytes count (nu mber/volume)on 09-27-2021 RBC (Bld) [#/Vol] 3.60 10*6/uL 4.6-6.2 [facility] Work Phone: [phone] Blood hemoglobin measurement (mass/volume)on 09-27-2021 Hemoglobin (Bld) [Mass/Vol] 11.6 g/dL 13.0-16.5 [facility] Work Phone: Blood lymphocytes/100 leukoc yteson 09-27-2021 Lymphocytes/100 WBC (Bld) 25 % 19-41 [facility] Work Phone: Blood monocytes/100 leukocyt eson 09-27-2021 Monocytes/100 WBC (Bld) 3 % 0-10 [facility] Work Phone: Blood platelet adequacy dete ction by light microscopyon 09-27-2021 Platelets LM Ql (Bld) ADEQUATE ADEQ [facility] Work Phone: Blood platelet mean volumeon 09-27-2021 Platelet mean volume (Bld) [Entitic vol] 9.3 fL 6.2-12.0 [facility] Work Phone: [phone] Blood segmented neutrophils/ 100 leukocyteson 09-27-2021 Segmented neutrophils/100 WBC (Bld) 72 % 47-70 [facility] Work Phone: [phone] Determination of erythrocyte mean corpuscular volume (MCV)on 09-27-2021 MCV (RBC) [Entitic vol] 93.9 fL 80-94 [facility] Work Phone: [phone] Hematocrit Auto (Bld) [Volum e fraction]on 09-27-2021 Hematocrit (Bld) [Volume fraction] 33.8 % 40-54 [facility] Work Phone: [phone] Hemoglobin in reticulocytes (mass per reticulocyte)on 09-27-2021 Hemoglobin (Reticulocytes) [Entitic mass] 34.5 pg 30-35 [facility] Work Phone: Laboratory - Chemistry and C hemistry - challengeon 09-27-2021 ALP [Catalytic activity/Vol] 87 U/L 45-117 [facility] Work Phone: [phone] ALT [Catalytic activity/Vol] 18 U/L 16-61 [facility] Work Phone: [phone] CO2 [Moles/Vol] 28.0 mmol/L 21.0-32.0 [facility] Work Phone: [phone] Globulin (S) [Mass/Vol] 3.1 g/dL 2.2-4.2 [facility] Work Phone: [phone] Urea nitrogen/Creatinine [Mass ratio] 21.7 mg/mg 10-20 [facility] Work Phone: [phone] Laboratory - Hematology and Cell countson 09-27-2021 Erythrocyte distribution width (RBC) [Entitic vol] 45.1 fL 35.1-43.9 [facility] Work Phone: [phone] Erythrocyte distribution width (RBC) [Ratio] 13.2 % 11.6-14.6 [facility] Work Phone: MCH (RBC) [Entitic mass] 32.2 pg 27.0-32.0 [facility] Work Phone: MCHC Auto (RBC) [Mass/Vol]on 09-27-2021 MCHC (RBC) [Mass/Vol] 34.3 g/dL 32-36 [facility] Work Phone: No Panel Informationon 09-27 Estimated GFR (MDRD) Amer 97 mL/min >60 [facility] Work Phone: Comment on above: GFR Calc Estimated GFR (MDRD) Non-Af Amer 80 mL/min >60 [facility] Work Phone: Comment on above: Non- GFR Calc Immature Reticulocyte Fraction 4.40 % 3.00-15.90 [facility] Work Phone: Reticulocyte Count 4.06 % 0.5-1.5 [facility] Work Phone: Platelets bldon 09-27-2021 Platelets (Bld) [#/Vol] 135 10*3/uL 150-450 [facility] Work Phone: RBC morphologyon 09-27-2021 RBC morphology finding Nom (Bld) NORM C+C NORMAL NORM C&C [facility] Work Phone: Review by pathologiston Pathologist review John (Unsp spec) [Interp] Reviewed [facility] Work Phone: Comment on above: Previous reported re sult: June radha Edited by: RGOOD on 09/28/21:1314Leukopenia.Mild Normocytic anemia.Clinical correlation necessary.Thad Arellano M.D. 09/28/21 AMENDED REPORT 09/28/21 1314 PATH REV previously reported as: June radha Serum or plasma albumin evette urement (mass/volume)on 09-27-2021 Albumin [Mass/Vol] 3.4 g/dL 3.2-5.0 [facility] Work Phone: Serum or plasma albumin/glob ulin mass ratioon 09-27-2021 Albumin/Globulin [Mass ratio] 1.1 {ratio} 0.9-2.4 [facility] Work Phone: [phone] Serum or plasma calcium evette urement (mass/volume)on 09-27-2021 Calcium [Mass/Vol] 8.7 mg/dL 8.5-10.1 [facility] Work Phone: [phone] Serum or plasma creatinine m easurement (mass/volume)on 09-27-2021 Creatinine [Mass/Vol] 0.97 mg/dL 0.70-1.30 [facility] Work Phone: Comment on above: The validity of the calculated GFR & GFRAA in patients over 70 years has not been determined. Clinical correlation is essential. Serum or plasma urea nitroge n measurement (mass/volume)on 09-27-2021 Urea nitrogen [Mass/Vol] 21 mg/dL 7-18 [facility] Work Phone: Thin prep Papanicolaou smear with manual screeningon 09-27-2021 Thin prep Papanicolaou smear with manual screening 14 U/L 15-37 [facility] Work Phone: Thin prep Papanicolaou smear with manual screening 4 5-15 [facility] Work Phone: [phone] Total cell counton 2 Cells counted Molgen (Bld/Tiss) [#] 100 MANUAL DIFF [facility] Work Phone: [phone] No Panel Informationon 07-21 POC SARS CoV-2 Antigen Negative [facility] Work Phone: [phone] Absolute lymphocyte counton 06-26-2021 Lymphocytes Auto (Unsp spec) [#/Vol] 0.87 10*3/uL 0.83-4.51 [facility] Work Phone: Basophil percentageon 2021 Basophils/100 WBC (Bld) 0.3 % 0-1 [facility] Work Phone: [phone] Eosinophils/100 WBC (Bld) 0.6 % 0-5 [facility] Work Phone: Neutrophils (Bld) [#/Vol] 2.2 10*3/uL 2.0-7.7 [facility] Work Phone: Neutrophils/100 WBC (Bld) 63.9 % 47-70 [facility] Work Phone: [phone] WBC (Bld) [#/Vol] 3.4 10*3/uL 4.4-11.0 [facility]: Blood erythrocytes count (nu mber/volume)on 06-26-2021 RBC (Bld) [#/Vol] 3.47 10*6/uL 4.6-6.2 [facility] Work Phone: [phone] Blood hemoglobin measurement (mass/volume)on 06-26-2021 Hemoglobin (Bld) [Mass/Vol] 11.3 g/dL 13.0-16.5 [facility] Work Phone: Blood lymphocytes/100 leukoc yteson 06-26-2021 Lymphocytes/100 WBC (Bld) 25.7 % 19-41 [facility] Work Phone: [phone] Blood monocytes/100 leukocyt eson 06-26-2021 Monocytes/100 WBC (Bld) 8.3 % 0-10 [facility] Work Phone: [phone] Blood platelet mean volumeon 06-26-2021 Platelet mean volume (Bld) [Entitic vol] 8.6 fL 6.2-12.0 [facility] Work Phone: Determination of erythrocyte mean corpuscular volume (MCV)on 06-26-2021 MCV (RBC) [Entitic vol] 94.2 fL 80-94 [facility] Work Phone: Hematocrit Auto (Bld) [Volum e fraction]on 06-26-2021 Hematocrit (Bld) [Volume fraction] 32.7 % 40-54 [facility] Work Phone: [phone] Hemoglobin in reticulocytes (mass per reticulocyte)on 06-26-2021 Hemoglobin (Reticulocytes) [Entitic mass] 35.1 pg 30-35 [facility] Work Phone: [phone] Iron measurement (mass/mass) on 06-26-2021 Iron (Unsp spec) [Mass/Mass] 67 ug/dL 65-175 [facility] Work Phone: Laboratory - Hematology and Cell countson 06-26-2021 Erythrocyte distribution width (RBC) [Entitic vol] 43.4 fL 35.1-43.9 [facility] Work Phone: [phone] Erythrocyte distribution width (RBC) [Ratio] 12.6 % 11.6-14.6 [facility] Work Phone: [phone] Immature granulocytes/100 WBC (Bld) 1.200 % 0.0-0.9 [facility] Work Phone: [phone] Comment on above: IG% - Immature Granu locytes (promyelocytes, myelocytes and metamyelocytes) > 1% indicates that a LEFT SHIFT is Present. MCH (RBC) [Entitic mass] 32.6 pg 27.0-32.0 [facility] Work Phone: [phone] Nucleated RBC/100 WBC (Bld) [Ratio] 0.6 % 0-5 [facility] Work Phone: [phone] MCHC Auto (RBC) [Mass/Vol]on 06-26-2021 MCHC (RBC) [Mass/Vol] 34.6 g/dL 32-36 [facility] Work Phone: [phone] Panel Informationon 06-26 Immature Reticulocyte Fraction 5.70 % 3.00-15.90 [facility] Work Phone: [phone] Reticulocyte Count 3.45 % 0.5-1.5 [facility] Work Phone: [phone] Total Iron Binding Capacity 304 ug/dL 250-450 [facility] Work Phone: Platelets bldon 06-26-2021 Platelets (Bld) [#/Vol] 138 10*3/uL 150-450 [facility] Work Phone: [phone] Serum or plasma ferritin deborah surement (mass/volume)on 06-26-2021 Ferritin [Mass/Vol] 337 ng/mL 26-388 [facility] Work Phone: No Panel Informationon 06-25 Prostate Specific Antigen Screen 0.06 ng/mL 0.00-4.00 [facility] Work Phone: Comment on above: This test was perfor med using the TPSA assay method [facility]. Values obtained with differentassay methods cannot be used interchangably.When changing PSA assays in the course of monitoring apatient, additional sequential testing should be carriedout to confirm baseline values. Basophil percentageon 2021 Creatinine [Mass/Vol] 1.4 mg/dL 0.70-1.30 [facility] Work Phone: Laboratory - Chemistry and C hemistry - challengeon 04-04-2021 GFR/1.73 sq M.predicted among non-blacks MDRD (S/P/Bld) [Vol rate/Area] 50.0000 mL/min/{1.73_m2} >60 [facility] Work Phone: Basic Metabolic Panelon Calcium [Mass/Vol] 8.8 mg/dL Normal 8.4-10.4 [facility] Comment on above: Performed By: #### H EMOG, PT/AP, BMP3, ETOH4, TROPN, UAMAC, DRGA4 #### [facility] [email or web address] [address] Glucose [Mass/Vol] 123 mg/dL High 70-100 [facility] Comment on above: Performed By: #### H EMOG, PT/AP, BMP3, ETOH4, TROPN, UAMAC, DRGA4 #### [facility] [email or web address] [address] Urea nitrogen [Mass/Vol] 16 mg/dL Normal 7-20 [facility] Comment on above: Performed By: #### H EMOG, PT/AP, BMP3, ETOH4, TROPN, UAMAC, DRGA4 #### [facility] [email or web address] [address] Anion gap [Moles/Vol] 5 Normal [facility] Comment on above: Performed By: #### H EMOG, PT/AP, BMP3, ETOH4, TROPN, UAMAC, DRGA4 #### [facility] [address], [place] CO2 [Moles/Vol] 26 mmol/L Normal 22-30 [facility] Comment on above: Performed By: #### H EMOG, PT/AP, BMP3, ETOH4, TROPN, UAMAC, DRGA4 #### [facility] [address] [place], [place] Creatinine [Mass/Vol] 0.77 mg/dL Normal 0.52-1.25 [facility] Comment on above: Performed By: #### H EMOG, PT/AP, BMP3, ETOH4, TROPN, UAMAC, DRGA4 #### [place] [address] [address] [place], [place] GFR/1.73 sq M predicted among blacks MDRD (S/P/Bld) [Vol rate/Area] mL/min/{1.73_m2} Normal >60 [facility] Comment on above: Performed By: #### H EMOG, PT/AP, BMP3, ETOH4, TROPN, UAMAC, DRGA4 #### [facility] [address] [place], [place] GFR/1.73 sq M predicted among non-blacks MDRD (S/P/Bld) [Vol rate/Area] mL/min/{1.73_m2} Normal >60 [facility] Comment on above: Result Comment: Sour ce- MDRD equation with creatinine calibration to IDMS(NKDEP) eGFR not recommended for drug dose adjustment Performed By: #### H EMOG, PT/AP, BMP3, ETOH4, TROPN, UAMAC, DRGA4 #### [facility] [address], [place] Potassium [Moles/Vol] 4.1 mmol/L Normal 3.5-5.1 [facility] Comment on above: Performed By: #### H EMOG, PT/AP, BMP3, ETOH4, TROPN, UAMAC, DRGA4 #### [place] [address] [address] [place], [place] Chloride [Moles/Vol] 107 mmol/L Normal 98-107 [facility] Comment on above: Performed By: #### H EMOG, PT/AP, BMP3, ETOH4, TROPN, UAMAC, DRGA4 #### [address] [address] [place], [place] Sodium [Moles/Vol] 137 mmol/L Normal 135-145 [facility] Comment on above: Performed By: #### H EMOG, PT/AP, BMP3, ETOH4, TROPN, UAMAC, DRGA4 #### [address] Glucose,Bedsideon 03-01-2018 Glucose [Mass/Vol] 159 mg/dL High 70-100 [facility] Comment on above: Result Comment: Test performed by glucose meter. Results may be 10%-15% lower than serum/plasma values. (CLIA ID [id number]) Performed By: #### H EMOG, PT/AP, BMP3, ETOH4, TROPN, UAMAC, DRGA4 #### [place] [address] [address] [place], [place] Hemogramon 03-01-2018 Erythrocyte distribution width (RBC) [Ratio] 13.8 % Normal 11.5-14.5 [facility] Comment on above: Performed By: #### H EMOG, PT/AP, BMP3, ETOH4, TROPN, UAMAC, DRGA4 #### [address] [address] [place], [place] Hematocrit (Bld) [Volume fraction] 35.8 % Low 40.0-52.0 [facility] Comment on above: Performed By: #### H EMOG, PT/AP, BMP3, ETOH4, TROPN, UAMAC, DRGA4 #### [address] [address] [place], [place] Hemoglobin (Bld) [Mass/Vol] 12.1 g/dL Low 13.0-18.0 [facility] Comment on above: Performed By: #### H EMOG, PT/AP, BMP3, ETOH4, TROPN, UAMAC, DRGA4 #### [address] [place] MCH (RBC) [Entitic mass] 31.3 pg Normal 26.0-34.0 [facility] Comment on above: Performed By: #### H EMOG, PT/AP, BMP3, ETOH4, TROPN, UAMAC, DRGA4 #### [address] [place] MCHC (RBC) [Mass/Vol] 33.8 % Normal 32.0-36.0 [facility] Comment on above: Performed By: #### H EMOG, PT/AP, BMP3, ETOH4, TROPN, UAMAC, DRGA4 #### [address] MCV (RBC) [Entitic vol] 92.6 fL Normal 80.0-98.0 [facility] Comment on above: Performed By: #### H EMOG, PT/AP, BMP3, ETOH4, TROPN, UAMAC, DRGA4 #### [address] Platelet mean volume (Bld) [Entitic vol] 7.8 fL Normal 7.4-10.4 [facility] Comment on above: Performed By: #### H EMOG, PT/AP, BMP3, ETOH4, TROPN, UAMAC, DRGA4 #### [address] [address] [place], [place] Platelets (Bld) [#/Vol] 142 10*3/uL Normal 140-440 [facility] Comment on above: Performed By: #### H EMOG, PT/AP, BMP3, ETOH4, TROPN, UAMAC, DRGA4 #### [address] RBC (Bld) [#/Vol] 3.86 10*6/uL Low 4.40-5.90 [facility] Comment on above: Performed By: #### H EMOG, PT/AP, BMP3, ETOH4, TROPN, UAMAC, DRGA4 #### [place] [address] [address] [place], [place] WBC (Bld) [#/Vol] 4.7 10*3/uL Normal 3.6-10.7 [facility] Comment on above: Performed By: #### H EMOG, PT/AP, BMP3, ETOH4, TROPN, UAMAC, DRGA4 #### [address] [address] [address] [place], [place] Basic Metabolic Panelon 0 Anion gap [Moles/Vol] 8 Normal [facility] Comment on above: Performed By: #### H EMOG, PT/AP, BMP3, ETOH4, TROPN, UAMAC, DRGA4 #### [place] [address] [address] [place] Calcium [Mass/Vol] 8.5 mg/dL Normal 8.4-10.4 [facility] Comment on above: Performed By: #### H EMOG, PT/AP, BMP3, ETOH4, TROPN, UAMAC, DRGA4 #### [place] [address] [address] [place], [place] CO2 [Moles/Vol] 20 mmol/L Low 22-30 [facility] Comment on above: Performed By: #### H EMOG, PT/AP, BMP3, ETOH4, TROPN, UAMAC, DRGA4 #### [place] [address] [address] [place] Glucose [Mass/Vol] 105 mg/dL High 70-100 [facility] Comment on above: Performed By: #### H EMOG, PT/AP, BMP3, ETOH4, TROPN, UAMAC, DRGA4 #### [address] [address] [address] [place] Urea nitrogen [Mass/Vol] 21 mg/dL High 7-20 [facility] Comment on above: Performed By: #### H EMOG, PT/AP, BMP3, ETOH4, TROPN, UAMAC, DRGA4 #### [address] [address] [address] [place] Creatinine [Mass/Vol] 0.70 mg/dL Normal 0.52-1.25 [facility] Comment on above: Performed By: #### H EMOG, PT/AP, BMP3, ETOH4, TROPN, UAMAC, DRGA4 #### [address] [address] [place], [place] GFR/1.73 sq M predicted among blacks MDRD (S/P/Bld) [Vol rate/Area] mL/min/{1.73_m2} Normal >60 [facility] Comment on above: Performed By: #### H EMOG, PT/AP, BMP3, ETOH4, TROPN, UAMAC, DRGA4 #### [address] [place] [address] [place] GFR/1.73 sq M predicted among non-blacks MDRD (S/P/Bld) [Vol rate/Area] mL/min/{1.73_m2} Normal >60 [facility] Comment on above: Result Comment: Sour ce- MDRD equation with creatinine calibration to IDMS(NKDEP) eGFR not recommended for drug dose adjustment Performed By: #### H EMOG, PT/AP, BMP3, ETOH4, TROPN, UAMAC, DRGA4 #### [address] [address] [address] [place] Potassium [Moles/Vol] 4.4 mmol/L Normal 3.5-5.1 [facility] Comment on above: Performed By: #### H EMOG, PT/AP, BMP3, ETOH4, TROPN, UAMAC, DRGA4 #### [address] [address] [place], [place] Sodium [Moles/Vol] 136 mmol/L Normal 135-145 [facility] Comment on above: Performed By: #### H EMOG, PT/AP, BMP3, ETOH4, TROPN, UAMAC, DRGA4 #### [address] [address] [place], [place] Chloride [Moles/Vol] 108 mmol/L High 98-107 [facility] Comment on above: Performed By: #### H EMOG, PT/AP, BMP3, ETOH4, TROPN, UAMAC, DRGA4 #### [address] [address] Echo Complete w/wo Contrasto n 02-28-2018 Echo Complete w/wo Contrast Patient Name: CHANCE MUNOZ Ultrasound Exam Date/Time 02/28/2018 08:24:55 EST Exam Echo Complete w/wo Contrast Ordering Physician MORIAH ARCE HEATHER Accession Number [id number] Reason For Exam syncope Report TRANSTHORACIC ECHOCARDIOGRAM PATIENT: Chance Munoz STUDY DATE: 02/28/2018 : 1945 AGE: 72 HT/WT: 177.8 cm (70 87.1 kg (191.6 in) lb) GENDER: M BP: 133 / 85 LOCATION: [facility] PATIENT Observation [facility] STATUS: *ORDERING PHYSICIAN: * Argentina Arce *READING PHYSICIAN: * [place], *MOTION PICTURE CRITIC: * Felicita Pagan RDCS, AEEmanuel [facility], [facility] --- INDICATIONS: Syncope. --- CONCLUSIONS SUMMARY: 1. Left ventricle: Systolic function is normal by the biplane method of disks. The estimated ejection fraction is 66%. There are no regional wall motion abnormalities. 2. Right ventricle: The cavity size is normal. Systolic function is normal. 3. No significant valve disease. --- STUDY DATA: Complete transthoracic echocardiogram. Procedure: Image quality was good. M-mode, complete 2D, complete spectral Doppler, and color flow Doppler images were acquired and archived for permanent storage and are available for subsequent review. Study status: Routine. Patient status: Observation. --- FINDINGS LEFT VENTRICLE: The cavity size is normal. Wall thickness is mildly increased. Systolic function is normal by the biplane method of disks. The estimated ejection fraction is 66%. There are no regional wall motion abnormalities. Left ventricular diastolic function parameters are normal for the patient's age. RIGHT VENTRICLE: The cavity size is normal. Systolic function is normal. Right ventricular systolic pressure is within the normal range. VENTRICULAR SEPTUM: The septum is normal. There is no evidence of a ventricular septal defect. There is no evidence of a ventricular septal defect. LEFT ATRIUM: The atrium is normal in size. RIGHT ATRIUM: The atrium is normal in size. ATRIAL SEPTUM: The interatrial septum is normal. Color Doppler shows no evidence of shunt. MITRAL VALVE: Structurally normal valve. Doppler: There is no regurgitation. Peak gradient (D): 2 mm Hg. AORTIC VALVE: Trileaflet; mildly thickened leaflets. Doppler: There is no regurgitation. TRICUSPID VALVE: Structurally normal valve. Doppler: There is trivial, less than 1+ regurgitation. PULMONIC VALVE: Structurally normal valve. Doppler: There is no regurgitation. AORTA: The aorta is normal. PULMONARY ARTERY: Main pulmonary artery: Normal. Normal. PERICARDIUM: There is no pericardial effusion. SYSTEMIC VEINS: Inferior vena cava: The vessel is normal. The IVC collapses by greater than 50% with inspiration. --- Measurements Left ventricle Value Reference LV ID, ED 4.5 cm 4.2 - 5.9 LV ID, ES 2.9 cm --------- LV PW thickness, ED (H) 1.3 cm 0.6 - 1.0 LV end-diastolic volume, 1-p A4C 115 ml 67 - 155 LV end-systolic volume, 1-p A4C 42 ml 22 - 58 LV end-diastolic volume, 2-p 120 ml 67 - 155 LV end-systolic volume, 2-p 41 ml 22 - 58 LV ejection fraction, 2-p 66 % >=55 LV E/e', lateral 10.8 --------- LV E/e', medial 13.3 --------- LV E/e', average 11.9 --------- Ventricular septum Value Reference IVS thickness, ED (H) 1.3 cm 0.6 - 1.0 LVOT Value Reference LVOT mean velocity, S 0.5 m/sec --------- LVOT VTI, S 18.5 cm --------- LVOT peak gradient, S 3 mm Hg --------- Aorta Value Reference Ascending aorta ID, A-P, S 3.2 cm --------- Left atrium Value Reference LA volume/bsa, ES, 2-p 15 ml/m2 --------- Mitral valve Value Reference Mitral E-wave peak velocity 0.8 m/sec --------- Mitral A-wave peak velocity 1.1 m/sec --------- Mitral deceleration time 198 ms --------- Mitral peak gradient, D 2 mm Hg --------- Mitral E/A ratio, peak 0.7 --------- Tricuspid valve Value Reference Tricuspid peak RV-RA gradient 17 mm Hg --------- Right atrium Value Reference RA area, ES, A4C 14 cm2 10 - 18 Right ventricle Value Reference RV ID, minor axis, ED, A4C mid 2.8 cm 2.0 - 3.5 Legend: (L) and (H) shreyas values outside specified reference range. Electronically signed by Emanuel Vegas 02/28/2018 09:10 Final Dictated: 02/28/2018 9:11 am Dictating Physician: MD VEGAS KENNETH D Signed Date and Time: 02/28/2018 9:10 am Signed by: MD VEGAS KENNETH D Normal [facility] Glucose,Bedsideon 02-28-2018 Glucose [Mass/Vol] 123 mg/dL [address] Comment on above: Result Comment: Test performed by glucose meter. Results may be 10%-15% lower than serum/plasma values. (CLIA ID [id number]) Performed By: #### H EMOG, PT/AP, BMP3, ETOH4, TROPN, UAMAC, DRGA4 #### [facility] [address] [place] [address] Glucose [Mass/Vol] 169 mg/dL [address] Comment on above: Result Comment: Test performed by glucose meter. Results may be 10%-15% lower than serum/plasma values. (CLIA ID [id number]) Performed By: #### H EMOG, PT/AP, BMP3, ETOH4, TROPN, UAMAC, DRGA4 #### [facility] [address] [place] [address] Glucose [Mass/Vol] 182 mg/dL [address] Comment on above: Result Comment: Test performed by glucose meter. Results may be 10%-15% lower than serum/plasma values. (CLIA ID [id number]) Performed By: #### H EMOG, PT/AP, BMP3, ETOH4, TROPN, UAMAC, DRGA4 #### [facility] [address] [place] [address] Glucose [Mass/Vol] 103 mg/dL High [address] [place] [address] Comment on above: Result Comment: Test performed by glucose meter. Results may be 10%-15% lower than serum/plasma values. (CLIA ID [id number]) Performed By: #### H EMOG, PT/AP, BMP3, ETOH4, TROPN, UAMAC, DRGA4 #### [address] Hemogramon 02-28-2018 Erythrocyte distribution width (RBC) [Ratio] 13.8 % Normal 11.5-14.5 [facility] Comment on above: Performed By: #### H EMOG, PT/AP, BMP3, ETOH4, TROPN, UAMAC, DRGA4 #### [address] Hematocrit (Bld) [Volume fraction] 35.3 % Low 40.0-52.0 [facility] Comment on above: Performed By: #### H EMOG, PT/AP, BMP3, ETOH4, TROPN, UAMAC, DRGA4 #### [address] Hemoglobin (Bld) [Mass/Vol] 12.1 g/dL Low 13.0-18.0 [facility] Comment on above: Performed By: #### H EMOG, PT/AP, BMP3, ETOH4, TROPN, UAMAC, DRGA4 #### [address] MCH (RBC) [Entitic mass] 31.6 pg Normal 26.0-34.0 [facility] Comment on above: Performed By: #### H EMOG, PT/AP, BMP3, ETOH4, TROPN, UAMAC, DRGA4 #### [address] MCHC (RBC) [Mass/Vol] 34.3 % Normal 32.0-36.0 [facility] Comment on above: Performed By: #### H EMOG, PT/AP, BMP3, ETOH4, TROPN, UAMAC, DRGA4 #### [address] MCV (RBC) [Entitic vol] 92.1 fL Normal 80.0-98.0 [facility] Comment on above: Performed By: #### H EMOG, PT/AP, BMP3, ETOH4, TROPN, UAMAC, DRGA4 #### [address] [place] [address] [address] [place], [place] Platelet mean volume (Bld) [Entitic vol] 7.9 fL Normal 7.4-10.4 [facility] Comment on above: Performed By: #### H EMOG, PT/AP, BMP3, ETOH4, TROPN, UAMAC, DRGA4 #### [address] [address] [address] [place] Platelets (Bld) [#/Vol] 151 10*3/uL Normal 140-440 [facility] Comment on above: Performed By: #### H EMOG, PT/AP, BMP3, ETOH4, TROPN, UAMAC, DRGA4 #### [address] [address] [place], [place] RBC (Bld) [#/Vol] 3.83 10*6/uL Low 4.40-5.90 [facility] Comment on above: Performed By: #### H EMOG, PT/AP, BMP3, ETOH4, TROPN, UAMAC, DRGA4 #### [address] [place] WBC (Bld) [#/Vol] 6.9 10*3/uL Normal 3.6-10.7 [facility] Comment on above: Performed By: #### H EMOG, PT/AP, BMP3, ETOH4, TROPN, UAMAC, DRGA4 #### [address] [place] Prothrombin Timeon 9 INR Coag (PPP) [Relative time] 1.0 Normal 0.9-1.1 [facility] Comment on above: Result Comment: Darinel mmended Anticoagulant Therapy: SEE BELOW ----- INR of 2.0 - 3.0 : - Prophylaxis of Venous Thrombosis (high-risk surgery) - Treatment of Venous Thrombosis - Treatment of Pulmonary Embolism (Includes tissue heart valves, Acute Myocardial Infarction to prevent systemic embolism, Valvular Heart Disease, and Atrial Fibrillation) ----- INR of 2.5 - 3.5 : - Mechanical Prosthetic Valves (high risk) - If oral anticoagulant therapy is used to prevent Myocardial Infarction Performed By: #### H EMOG, PT/AP, BMP3, ETOH4, TROPN, UAMAC, DRGA4 #### [address] [address] [address] [place], [place] PT Coag (PPP) [Time] 10.7 s Normal 9.0-12.0 [facility] Comment on above: Result Comment: . Performed By: #### H EMOG, PT/AP, BMP3, ETOH4, TROPN, UAMAC, DRGA4 #### [address] [address] [address] [place], [place] Basic Metabolic Panelon Calcium [Mass/Vol] 9.7 mg/dL Normal 8.4-10.4 [facility] Comment on above: Performed By: #### H EMOG, PT/AP, BMP3, ETOH4, TROPN, UAMAC, DRGA4 #### [place] [address] [address] [place] Glucose [Mass/Vol] 151 mg/dL High 70-100 [facility] Comment on above: Performed By: #### H EMOG, PT/AP, BMP3, ETOH4, TROPN, UAMAC, DRGA4 #### [address] [address] [address] [place] Urea nitrogen [Mass/Vol] 25 mg/dL High 7-20 [facility] Comment on above: Performed By: #### H EMOG, PT/AP, BMP3, ETOH4, TROPN, UAMAC, DRGA4 #### [address] [place] Anion gap [Moles/Vol] 12 Normal [facility] Comment on above: Performed By: #### H EMOG, PT/AP, BMP3, ETOH4, TROPN, UAMAC, DRGA4 #### [place] [address] [address] [place], [place] CO2 [Moles/Vol] 18 mmol/L Low 22-30 [facility] Comment on above: Performed By: #### H EMOG, PT/AP, BMP3, ETOH4, TROPN, UAMAC, DRGA4 #### [address] Creatinine [Mass/Vol] 0.83 mg/dL Normal 0.52-1.25 [facility] Comment on above: Performed By: #### H EMOG, PT/AP, BMP3, ETOH4, TROPN, UAMAC, DRGA4 #### [address] [address] GFR/1.73 sq M predicted among blacks MDRD (S/P/Bld) [Vol rate/Area] mL/min/{1.73_m2} Normal >60 [facility] Comment on above: Performed By: #### H EMOG, PT/AP, BMP3, ETOH4, TROPN, UAMAC, DRGA4 #### [address] GFR/1.73 sq M predicted among non-blacks MDRD (S/P/Bld) [Vol rate/Area] mL/min/{1.73_m2} Normal >60 [facility] Comment on above: Result Comment: Sour ce- MDRD equation with creatinine calibration to IDMS(NKDEP) eGFR not recommended for drug dose adjustment Performed By: #### H EMOG, PT/AP, BMP3, ETOH4, TROPN, UAMAC, DRGA4 #### [address] Potassium [Moles/Vol] 3.7 mmol/L Normal 3.5-5.1 [facility] Comment on above: Performed By: #### H EMOG, PT/AP, BMP3, ETOH4, TROPN, UAMAC, DRGA4 #### [address] Chloride [Moles/Vol] 108 mmol/L High 98-107 [facility] Comment on above: Performed By: #### H EMOG, PT/AP, BMP3, ETOH4, TROPN, UAMAC, DRGA4 #### [facility] [address] [place] [address] Sodium [Moles/Vol] 138 mmol/L Normal 135-145 [facility] Comment on above: Performed By: #### H EMOG, PT/AP, BMP3, ETOH4, TROPN, UAMAC, DRGA4 #### [facility] [address] [place] [address] CR Chest 1 View Frontalon CR Chest 1 View Frontal Patient Name: CHANCE VERDUZCO Diagnostic Radiology Exam Date/Time 02/27/2018 15:58:58 EST Exam CR Chest 1 View Frontal Ordering Physician KILLIAN GANDARA Accession Number [id number] CPT4 Codes 98589 () Reason For Exam pain Report PORTABLE CHEST X-RAY CLINICAL INDICATION: Chest pain A portable frontal view of the chest was obtained. COMPARISON: None FINDINGS: The cardiac silhouette is within normal limits. No focal consolidation is seen within the lungs. There is no large pleural effusion or pneumothorax. The bony structures of the chest are unremarkable as visualized. IMPRESSION: The extreme portion of the lung apices and lateral aspect of the left hemithorax is not included in the [id number] on this single portable film. No focal consolidation is seen within the lungs. Report Dictated on Final Dictated: 02/27/2018 4:22 pm Dictating Physician: MD PEDROZA JONATHAN R Signed Date and Time: 02/27/2018 4:23 pm Signed by: MD PEDROZA JONATHAN R Transcribed Date and Time: 02/27/2018 4:22 Normal [facility] CR Pelvis 1 or 2 Viewson CR Pelvis 1 or 2 Views Patient Name: CHANCE HOLLAND Diagnostic Radiology Exam Date/Time 02/27/2018 15:58:58 EST Exam CR Pelvis 1 or 2 Views Ordering Physician KILLIAN GANDARA Accession Number [id number] CPT4 Codes 40691 () Reason For Exam pain Report AP PELVIS CLINICAL INDICATION: Pain A single AP view of the pelvis was obtained. Comparison: None. FINDINGS: There is no fracture of the pelvis or sacrum seen. No hip fracture or dislocation is seen bilaterally. There are degenerative changes of the visualized portion of the lower lumbar spine. IMPRESSION: No fracture or dislocation of the pelvis or hips is seen. Report Dictated on Final Dictated: 02/27/2018 4:23 pm Dictating Physician: MD PEDROZA JONATHAN R Signed Date and Time: 02/27/2018 4:23 pm Signed by: MD PEDROZA JONATHAN R Transcribed Date and Time: 02/27/2018 4:23 Normal [facility] CT Head or Brain w/o Contras ton 02-27-2018 CT Head or Brain w/o Contrast Patient Name: CHANCE MUNOZ CT Exam Date/Time 02/27/2018 15:34:[address] Head or Brain w/o Contrast Ordering Physician MD VILLATORO NATHAN R Accession Number [id number] CPT4 Codes 61811 () Reason For Exam fall Report Exam Type: CT Head or Brain w/o Contrast Exam Date and Time: 02/27/2018 3:34 PM EST Indication: Fall Comparison: None available TECHNIQUE: Noncontrast CT of the head. FINDINGS: Mild prominence of ventricles and cortical sulci is compatible with mild age-related cerebral volume loss. No extra axial collection. No acute intracranial hemorrhage. Scattered foci of hypoattenuation in the cerebral white matter are nonspecific but most compatible with microangiopathy. No CT evidence of acute large territorial infarct. No mass effect, cerebral edema, or midline shift. Atherosclerotic vascular calcifications visualized at the skull base. Imaged portions of the paranasal sinuses and mastoid air cells are well aerated. No depressed calvarial fracture. IMPRESSION: No acute intracranial hemorrhage or mass effect. Mild age-related cerebral volume loss and mild microangiopathy. Report Dictated on Final Dictated: 02/27/2018 4:05 pm Dictating Physician: MD ELIZABETH NEIL Signed Date and Time: 02/27/2018 4:10 pm Signed by: MD ELIZABETH NEIL Transcribed Date and Time: 02/27/2018 4:05 Normal [facility] CT Spine Cervical w/o Contra ston 02-27-2018 CT Spine Cervical w/o Contrast Patient Name: CHANCE MUNOZ CT Exam Date/Time 02/27/2018 15:34:[address] Spine Cervical w/o Contrast Ordering Physician MD VILLATORO NATHAN R Accession Number [id number] CPT4 Codes 97814 () Reason For Exam fall Report EXAMINATION: CT Spine Cervical w/o Contrast EXAM DATE AND TIME: 02/27/2018 3:34 PM EST INDICATION: Fall, surgical team COMPARISON: None available. TECHNIQUE: CT imaging of the cervical spine was obtained without contrast. FINDINGS: There is normal cervical lordosis. Trace anterolisthesis of C4 on C5 measuring 1 mm. Vertebral body heights are maintained. No fracture. Craniocervical junction is normal in appearance. Atlantodental distance is not widened. No prevertebral soft tissue swelling. Multilevel degenerative endplate changes are present throughout the cervical spine, most significant at C5-C6 and C6-C7. Mild loss of disc height at these levels. There are varying degrees of uncovertebral facet hypertrophy causing varying degrees of foraminal narrowing. There is high-grade osseous encroachment of the neural foramen on the left at C3-C4 bilaterally at C4-C5, C5-C6 and on the left at C6-C7. There is no high-grade osseous encroachment of the spinal canal. There is moderate osseous encroachment secondary to disc osteophyte complex at C5-C6. Ankylosis of the left facet joint at C2-C3. There are degenerative changes at the atlantodental interval. Atherosclerotic calcification of the carotid arteries within the neck. IMPRESSION: 1. No evidence of acute fracture. 2. Multilevel degenerative changes of the cervical spine as described. Report Dictated on Final Dictated: 02/27/2018 4:10 pm Dictating Physician: MD ELIZABETH NEIL Signed Date and Time: 02/27/2018 4:14 pm Signed by: MD ELIZABETH NEIL Transcribed Date and Time: 02/27/2018 4:10 Normal [facility] Drugs of Abuseon 02-27-2018 Phencyclidine (PCP), Ur Negative Normal [facility] Comment on above: Result Comment: The expected value for all of the drugs listed above is Negative. The following drugs or drug groups have been screened for by Immunoassay at the following thresholds: Amphetamine class (1000 ng/mL), Barbiturates (200 ng/mL), Benzodiazepines (200 ng/mL), Cocaine (300 ng/mL), Methadone (300 ng/mL), Opiates (300 ng/mL), Oxycodone (100 ng/mL), and PCP (25 ng/mL). NOTE: These results are for medical treatment only. Analysis performed using non-forensic procedures. POSITIVE results are NOT confirmed by a more specific alternative method unless requested. If confirmation is needed, request confirmation under separate order. Performed By: #### H EMOG, PT/AP, BMP3, ETOH4, TROPN, UAMAC, DRGA4 #### [facility] [address] [place], [place] Methadone, Ur Negative Normal [facility] Comment on above: Performed By: #### H EMOG, PT/AP, BMP3, ETOH4, TROPN, UAMAC, DRGA4 #### [facility] [address] [place], [place] Opiates, Ur Negative Normal [facility] Comment on above: Performed By: #### H EMOG, PT/AP, BMP3, ETOH4, TROPN, UAMAC, DRGA4 #### [facility] [address] [place], [place] Cocaine, Ur Negative Normal [facility] Comment on above: Performed By: #### H EMOG, PT/AP, BMP3, ETOH4, TROPN, UAMAC, DRGA4 #### [facility] [address] [place], [place] Barbiturates, Ur Negative Normal [facility] Comment on above: Performed By: #### H EMOG, PT/AP, BMP3, ETOH4, TROPN, UAMAC, DRGA4 #### [facility] [address] [place], [place] Benzodiazepines, Ur Negative Normal [facility] Comment on above: Performed By: #### H EMOG, PT/AP, BMP3, ETOH4, TROPN, UAMAC, DRGA4 #### [facility] [address] [place], [place] Amphetamines, Ur Negative Normal [facility] Comment on above: Performed By: #### H EMOG, PT/AP, BMP3, ETOH4, TROPN, UAMAC, DRGA4 #### [facility] [address] [place], [place] Oxycodone/Oxymorphine,U r Negative Normal [facility] Comment on above: Performed By: #### H EMOG, PT/AP, BMP3, ETOH4, TROPN, UAMAC, DRGA4 #### [facility] [address] [place], [place] ED Provider Noteon ED Provider Note Emergency Department Encounter [facility] EMERGENCY DEPT Patient: Chance Munoz : 1945 Date of Evaluation: 02/27/2018 ED Provider: Terrance Cole MD Chief Complaint No chief complaint on file. NAVYA Munoz is a 72 y.o. male who presents to the emergency department complaining of Fall, loss of consciousness, immediately had nausea and vomiting after the fall, patient was made a surgical team, a note times one upon arrival. Denies any complaints other than some pain in the back of his head. He is awake and alert. He was at a gas station when this occurred. This apparently was a witnessed fall, he said he lost consciousness for about 10-15 seconds according to EMS ROS: At least 10 systems reviewed and otherwise acutely negative except as in the [place]. Past History Past Medical History: Diagnosis Date ? Diabetes (HCC) ? Hypertension History reviewed. No pertinent surgical history. Social History Social History ? Marital status: Spouse name: N/A ? Number of children: N/A ? Years of education: N/A Social History Main Topics ? Smoking status: Former Smoker ? Smokeless tobacco: Never Used ? Alcohol use Yes ? Drug use: Unknown ? Sexual activity: Not Asked Other Topics Concern ? None Social History Narrative ? None Medications/Allergies Previous Medications No medications on file No Known Allergies Physical Exam ED Triage Vitals BP Temp Temp src Pulse Resp SpO2 Height Weight -- -- -- -- -- -- -- -- GENERAL: The patient appears nourished and normally developed. Vital signs as documented. EYES: Head exam is unremarkable. No scleral icterus or orbital trauma noted. Pupils are equal, round and reactive to light and accommodation HEENT: Mucous membranes moist. Nares patent without copious rhinorrhea. No enlarged lymphadenopathy. LUNGS: Lungs are clear to auscultation, without any respiratory distress. CARDIAC: Rhythm is regular. No dysrythmias or murmurs. ABDOMEN: Nontender with no obvious masses, and no peritoneal signs. EXTREMITIES: Non edematous, with no obvious deformities. SKIN: Good color, with no significant rashes. No pallor. NEURO: No obvious neurological deficits, normal sensation and strength bilaterally. Diagnostics Labs: Results for orders placed or performed during the hospital encounter of 02/27/18 Protime/INR & PTT Result Value Ref Range Protime 10.0 9.0 - 12.0 s INR 0.9 0.9 - 1.1 NA aPTT 20.6 20.0 - 30.5 s CBC Result Value Ref Range WBC 5.2 3.6 - 10.7 10*3/uL RBC 4.14 (L) 4.40 - 5.90 10*6/uL Hemoglobin 13.1 13.0 - 18.0 g/dL Hematocrit 38.0 (L) 40.0 - 52.0 % MCV 91.8 80.0 - 98.0 fL MCH 31.7 26.0 - 34.0 pg MCHC 34.6 32.0 - 36.0 % RDW 13.7 11.5 - 14.5 % Platelets 153 140 - 440 10*3/uL MPV 7.4 7.4 - 10.4 fL Basic Metabolic Panel Result Value Ref Range Sodium 138 135 - 145 mmol/L Potassium 3.7 3.5 - 5.1 mmol/L Chloride 108 (H) 98 - 107 mmol/L CO2 18 (L) 22 - 30 mmol/L Anion Gap 12 NA Glucose 151 (H) 70 - 100 mg/dL BUN 25 (H) 7 - 20 mg/dL CREATININE 0.83 0.52 - 1.25 mg/dL eGFR >60.0 >60 mL/min EGFR IF NonAfrican [place]ian >60.0 >60 mL/min Calcium 9.7 8.4 - 10.4 mg/dL Troponin Result Value Ref Range Troponin I <0.012 0.000 - 0.034 ng/mL Ethanol Result Value Ref Range Ethanol Lvl <0.010 0.000 - 0.010 g/dL Type and Screen Result Value Ref Range ABO Grouping O NA Rh Type POS NA Antibody Screen NEG NA Radiographs: Ct Head Wo Contrast Result Date: 02/27/2018 Patient Name: CHANCE MUNOZ ---CT--- Exam Date/Time 02/27/2018 15:34:[address] Head or Brain w/o Contrast Ordering Physician MD VILLATORO NATHAN R Accession Number [id number] CPT4 Codes 60145 () Reason For Exam fall Report Exam Type: CT Head or Brain w/o Contrast Exam Date and Time: 02/27/2018 3:34 PM EST Indication: Fall Comparison: None available TECHNIQUE: Noncontrast CT of the head. FINDINGS: Mild prominence of ventricles and cortical sulci is compatible with mild age-related cerebral volume loss. No extra axial collection. No acute intracranial hemorrhage. Scattered foci of hypoattenuation in the cerebral white matter are nonspecific but most compatible with microangiopathy. No CT evidence of acute large territorial infarct. No mass effect, cerebral edema, or midline shift. Atherosclerotic vascular calcifications visualized at the skull base. Imaged portions of the paranasal sinuses and mastoid air cells are well aerated. No depressed calvarial fracture. IMPRESSION: No acute intracranial hemorrhage or mass effect. Mild age-related cerebral volume loss and mild microangiopathy. Report Dictated on --- Final --- Dictated: 02/27/2018 4:05 pm Dictating Physician: MD ELIZABETH NEIL Signed Date and Time: 02/27/2018 4:10 pm Signed by: MD ELIZABETH NEIL Transcribed Date and Time: 02/27/2018 4:05 Ct Cervical Spine Wo Contrast Result Date: 02/27/2018 Patient Name: CHANCE MUNOZ ---CT--- Exam Date/Time 02/27/2018 15:34:[address] Spine Cervical w/o Contrast Ordering Physician MD VILLATORO NATHAN R Accession Number [id number] CPT4 Codes 26943 () Reason For Exam fall Report EXAMINATION: CT Spine Cervical w/o Contrast EXAM DATE AND TIME: 02/27/2018 3:34 PM EST INDICATION: Fall, surgical team COMPARISON: None available. TECHNIQUE: CT imaging of the cervical spine was obtained without contrast. FINDINGS: There is normal cervical lordosis. Trace anterolisthesis of C4 on C5 measuring 1 mm. Vertebral body heights are maintained. No fracture. Craniocervical junction is normal in appearance. Atlantodental distance is not widened. No prevertebral soft tissue swelling. Multilevel degenerative endplate changes are present throughout the cervical spine, most significant at C5-C6 and C6-C7. Mild loss of disc height at these levels. There are varying degrees of uncovertebral facet hypertrophy causing varying degrees of foraminal narrowing. There is high-grade osseous encroachment of the neural foramen on the left at C3-C4 bilaterally at C4-C5, C5-C6 and on the left at C6-C7. There is no high-grade osseous encroachment of the spinal canal. There is moderate osseous encroachment secondary to disc osteophyte complex at C5-C6. Ankylosis of the left facet joint at C2-C3. There are degenerative changes at the atlantodental interval. Atherosclerotic calcification of the carotid arteries within the neck. IMPRESSION: 1. No evidence of acute fracture. 2. Multilevel degenerative changes of the cervical spine as described. Report Dictated on --- Final --- Dictated: 02/27/2018 4:10 pm Dictating Physician: MD ELIZABETH NEIL Signed Date and Time: 02/27/2018 4:14 pm Signed by: MD ELIZABETH NEIL Transcribed Date and Time: 02/27/2018 4:10 Xr Chest 1 Vw Result Date: 02/27/2018 Patient Name: CHANCE MUNOZ ---Diagnostic Radiology--- Exam Date/Time 02/27/2018 15:58:58 EST Exam CR Chest 1 View Frontal Ordering Physician KILLIAN GANDARA Accession Number [id number] CPT4 Codes 90573 () Reason For Exam pain Report PORTABLE CHEST X-RAY CLINICAL INDICATION: Chest pain A portable frontal view of the chest was obtained. COMPARISON: None FINDINGS: The cardiac silhouette is within normal limits. No focal consolidation is seen within the lungs. There is no large pleural effusion or pneumothorax. The bonystructures of the chest are unremarkable as visualized. IMPRESSION: The extreme portion of the lung apices and lateral aspect of the left hemithorax is not included in the [id number] on this single portable film. No focal consolidation is seen within the lungs. Report Dictated on --- Final --- Dictated: 02/27/2018 4:22 pm Dictating Physician: MD PEDROZA JONATHAN R Signed Date and Time: 02/27/2018 4:23 pm Signed by: MD PEDROZA JONATHAN R Transcribed Date and Time: 02/27/2018 4:22 Xr Pelvis (1-2 Vw) Result Date: 02/27/2018 Patient Name: CHANCE MUNOZ ---Diagnostic Radiology--- Exam Date/Time 02/27/2018 15:58:58 EST Exam CR Pelvis 1 or 2 Views Ordering Physician KILLIAN GANDARA Accession Number [id number] CPT4 Codes 32549 () Reason For Exam pain Report AP PELVIS CLINICAL INDICATION: Pain A single AP view of the pelvis was obtained. Comparison: None. FINDINGS: There is no fracture of the pelvis or sacrum seen. No hip fracture or dislocation is seen bilaterally. There are degenerative changes of the visualized portion of the lower lumbar spine. IMPRESSION: No fracture or dislocation of the pelvis or hips is seen. Report Dictated on --- Final --- Dictated: 02/27/2018 4:23 pm Dictating Physician: MD PEDROZA JONATHAN R Signed Date and Time: 02/27/2018 4:23 pm Signed by: MD PEDROZA JONATHAN R Transcribed Date and Time: 02/27/2018 4:23 Procedures/EKG: none ED Course and MDM In brief, Chance Munoz is a 72 y.o. male who presented to the emergency department After a fall, appears to have a concussion, CT and x-rays are unremarkable. Admitted by trauma surgery for repeat computed tomography scan and observation Final Impression Fall, concussion DISPOSITION admit Comment: Please note this report has been produced using speech recognition software and may contain errors related to that system including errors in grammar, punctuation, and spelling, as well as words and phrases that may be inappropriate. If there are any questions or concerns please feel free to contact the dictating provider for clarification. Terrance Cole MD [employer] Terrance Cole MD 02/27/18 1712 Normal [facility] Ethanol Serum/Plasmaon 02-27 Ethanol-Serum/Plasma < 0.010 Normal 0.000-0 .01 0 [facility] Comment on above: Result Comment: NOTE : This result is for medical treatment only. Analysis performed using non-forensic procedures. Performed By: #### H EMOG, PT/AP, BMP3, ETOH4, TROPN, UAMAC, DRGA4 #### [place] [address], [place] Glucose,Bedsideon 02-27-2018 Glucose [Mass/Vol] 123 mg/dL High 70-100 [facility] Comment on above: Result Comment: Test performed by glucose meter. Results may be 10%-15% lower than serum/plasma values. (CLIA ID [id number]) Performed By: #### H EMOG, PT/AP, BMP3, ETOH4, TROPN, UAMAC, DRGA4 #### [address] [place], [place] Hemogramon 02-27-2018 Erythrocyte distribution width (RBC) [Ratio] 13.7 % Normal 11.5-14.5 [facility] Comment on above: Performed By: #### H EMOG, PT/AP, BMP3, ETOH4, TROPN, UAMAC, DRGA4 #### [address] [address] [place], [place] Hematocrit (Bld) [Volume fraction] 38.0 % Low 40.0-52.0 [facility] Comment on above: Performed By: #### H EMOG, PT/AP, BMP3, ETOH4, TROPN, UAMAC, DRGA4 #### [address] [address] [place], [place] Hemoglobin (Bld) [Mass/Vol] 13.1 g/dL Normal 13.0-18.0 [facility] Comment on above: Performed By: #### H EMOG, PT/AP, BMP3, ETOH4, TROPN, UAMAC, DRGA4 #### [address] [place] [place], [place] MCH (RBC) [Entitic mass] 31.7 pg Normal 26.0-34.0 [facility] Comment on above: Performed By: #### H EMOG, PT/AP, BMP3, ETOH4, TROPN, UAMAC, DRGA4 #### [address] [address] [place], [place] MCHC (RBC) [Mass/Vol] 34.6 % Normal 32.0-36.0 [facility] Comment on above: Performed By: #### H EMOG, PT/AP, BMP3, ETOH4, TROPN, UAMAC, DRGA4 #### [address] MCV (RBC) [Entitic vol] 91.8 fL Normal 80.0-98.0 [facility] Comment on above: Performed By: #### H EMOG, PT/AP, BMP3, ETOH4, TROPN, UAMAC, DRGA4 #### [address] [address] [place], [place] Platelet mean volume (Bld) [Entitic vol] 7.4 fL Normal 7.4-10.4 [facility] Comment on above: Performed By: #### H EMOG, PT/AP, BMP3, ETOH4, TROPN, UAMAC, DRGA4 #### [address] Platelets (Bld) [#/Vol] 153 10*3/uL Normal 140-440 [facility] Comment on above: Performed By: #### H EMOG, PT/AP, BMP3, ETOH4, TROPN, UAMAC, DRGA4 #### [address] RBC (Bld) [#/Vol] 4.14 10*6/uL Low 4.40-5.90 [facility] Comment on above: Performed By: #### H EMOG, PT/AP, BMP3, ETOH4, TROPN, UAMAC, DRGA4 #### [address] WBC (Bld) [#/Vol] 5.2 10*3/uL Normal 3.6-10.7 [facility] Comment on above: Performed By: #### H EMOG, PT/AP, BMP3, ETOH4, TROPN, UAMAC, DRGA4 #### [address] [place] [address] [place], [place] Protime AND APTTon 9 INR Coag (PPP) [Relative time] 0.9 Normal 0.9-1.1 [facility] Comment on above: Result Comment: Darinel mmended Anticoagulant Therapy: SEE BELOW ----- INR of 2.0 - 3.0 : - Prophylaxis of Venous Thrombosis (high-risk surgery) - Treatment of Venous Thrombosis - Treatment of Pulmonary Embolism (Includes tissue heart valves, Acute Myocardial Infarction to prevent systemic embolism, Valvular Heart Disease, and Atrial Fibrillation) ----- INR of 2.5 - 3.5 : - Mechanical Prosthetic Valves (high risk) - If oral anticoagulant therapy is used to prevent Myocardial Infarction Performed By: #### H EMOG, PT/AP, BMP3, ETOH4, TROPN, UAMAC, DRGA4 #### [address] [place] [address] [address] [place], [place] PT Coag (PPP) [Time] 10.0 s Normal 9.0-12.0 [facility] Comment on above: Result Comment: . Performed By: #### H EMOG, PT/AP, BMP3, ETOH4, TROPN, UAMAC, DRGA4 #### [address] [place] [address] [place], [place] aPTT Coag (Bld) [Time] 20.6 s Normal 20.0-30.5 [facility] Comment on above: Result Comment: NOTE : The therapeutic time for Heparin anticoagulation, based on Xa activity inhibition, is an APTT of 46-80 seconds. Performed By: #### H EMOG, PT/AP, BMP3, ETOH4, TROPN, UAMAC, DRGA4 #### [facility] [address], [place] TS GELon 02-27-2018 TS GEL ABO Group: O Rh, Gel: POS Antibody Screen Gel: NEG Normal [facility] Comment on above: Performed By: #### H EMOG, PT/AP, BMP3, ETOH4, TROPN, UAMAC, DRGA4 #### [facility] [address] [place], [place] Troponin Ion 02-27-2018 Troponin I.cardiac [Mass/Vol] ng/mL Normal 0.000-0.03 4 [facility] Comment on above: Result Comment: 0.04 6 - 0.400 = Indeterminate > 0.400 = Consider Myocardial Injury Performed By: #### H EMOG, PT/AP, BMP3, ETOH4, TROPN, UAMAC, DRGA4 #### [facility] [address] [place], [place] Urinalysis,Macroon 9 Appearance (U) clear Normal Clear [facility] Comment on above: Performed By: #### H EMOG, PT/AP, BMP3, ETOH4, TROPN, UAMAC, DRGA4 #### [place] [address] [address] [place], [place] Bilirubin,Ur Negative Normal Negative [facility] Comment on above: Performed By: #### H EMOG, PT/AP, BMP3, ETOH4, TROPN, UAMAC, DRGA4 #### [facility] [address] [place], [place] Color (U) yellow Normal Lt. Yellow [facility] Comment on above: Performed By: #### H EMOG, PT/AP, BMP3, ETOH4, TROPN, UAMAC, DRGA4 #### [facility] [address] [place] Glucose Ql (U) NORM Normal Negative [facility] Comment on above: Performed By: #### H EMOG, PT/AP, BMP3, ETOH4, TROPN, UAMAC, DRGA4 #### [facility] [address] [place], [place] Ketone,Urine 3 + mg/dL Normal Negative [facility] Comment on above: Performed By: #### H EMOG, PT/AP, BMP3, ETOH4, TROPN, UAMAC, DRGA4 #### [address] Nitrite Ql (U) Negative Normal Negative [facility] Comment on above: Performed By: #### H EMOG, PT/AP, BMP3, ETOH4, TROPN, UAMAC, DRGA4 #### [address] Occult Blood,Ur Negative Normal Negative [facility] Comment on above: Performed By: #### H EMOG, PT/AP, BMP3, ETOH4, TROPN, UAMAC, DRGA4 #### [address] pH (U) 7.0 Normal 5.0-8.0 [facility] Comment on above: Performed By: #### H EMOG, PT/AP, BMP3, ETOH4, TROPN, UAMAC, DRGA4 #### [address] Protein (U) [Mass/Vol] Negative Normal Negative [facility] Comment on above: Performed By: #### H EMOG, PT/AP, BMP3, ETOH4, TROPN, UAMAC, DRGA4 #### [address] Specific [place],Urine 1.005 Normal 1.005 -1.03 0 [facility] Comment on above: Performed By: #### H EMOG, PT/AP, BMP3, ETOH4, TROPN, UAMAC, DRGA4 #### [address] Urobilinogen Qn (U) NORM Normal 0-1 [facility] Comment on above: Performed By: #### H EMOG, PT/AP, BMP3, ETOH4, TROPN, UAMAC, DRGA4 #### [address] [id number] WBC (Bld) [#/Vol] Negative Normal Negative [facility] Comment on above: Performed By: #### H EMOG, PT/AP, BMP3, ETOH4, TROPN, UAMAC, DRGA4 #### [facility] [address] [place] [address] Office Visit: [facility] 12-06-19 Fall risk assessment No Invalid Interpretation Code [facility] Work Phone: [phone] Protein mass conc Done Invalid Interpretation Code [facility] Work Phone: [phone] 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 Left ventricular Ejection fraction 50 % Invalid Interpretation Code [facility] Work Phone: [phone] Office Visiton 11-27-2015 Tobacco smoking status NHIS Never smoker Invalid Interpretation Code [facility] Work Phone: [phone] 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 Anion gap 4 molar conc 5 Invalid Interpretation Code [facility] Work Phone: [phone] Calcium mass conc 8.9 mg/dL Invalid Interpretation Code [facility] Work Phone: [phone] Chloride molar conc 108 mmol/L [facility] Work Phone: [phone] CO2 ppres (BldV) 26.0 mmol/L Invalid Interpretation Code [facility] Work Phone: [phone] Creatinine mass conc 0.90 mg/dL Invalid Interpretation Code [facility] Work Phone: [phone] Erythrocyte distribution width Auto Ratio (RBC) 12.4 % Invalid Interpretation Code [facility] Work Phone: [phone] GFR/1.73 sq M predicted among non-blacks MDRD vol rate/area (S/P/Bld) 89 mL/min/{1.73_m2} Invalid Interpretation Code [facility] Work Phone: [phone] Glomerular Filtration Rate 107 mL/min/1.73m2 Invalid Interpretation Code [facility] Work Phone: [phone] Glucose mass conc 98 mg/dL Invalid Interpretation Code [facility] Work Phone: [phone] Hematocrit Auto Volume Fraction (Bld) 38.0 % Low [facility] Work Phone: [phone] Hemoglobin mass conc (Bld) 13.2 g/dL Invalid Interpretation Code [facility] Work Phone: [phone] MCH Auto Entitic mass (RBC) 31.4 pg Invalid Interpretation Code [facility] Work Phone: [phone] MCHC Auto mass conc (RBC) 34.7 g/dL Invalid Interpretation Code [facility] Work Phone: [phone] MCV Auto Entitic volume (RBC) 90.5 fL Invalid Interpretation Code [facility] Work Phone: [phone] Platelet mean volume Wesley-Maggie Entitic volume (Bld) 10.2 fL Invalid Interpretation Code [facility] Work Phone: [phone] Platelets Auto #/vol (Bld) 169 10*3/mm3 Invalid Interpretation Code [facility] Work Phone: [phone] Potassium molar conc 4.4 mmol/L Invalid Interpretation Code [facility] Work Phone: [phone] RBC Auto #/vol (Bld) 4.20 10*6/uL Low [facility] Work Phone: [phone] Sodium molar conc 139 mmol/L Invalid Interpretation Code [facility] Work Phone: [phone] Urea nitrogen mass conc 10 mg/dL Invalid Interpretation Code [facility] Work Phone: [phone] Urea nitrogen/Creatinine mass ratio 11.1 mg/mg Invalid Interpretation Code [facility] Work Phone: [phone] WBC Auto #/vol (Bld) 5.2 10*3/uL Invalid Interpretation Code [facility] Work Phone: [phone] Replaced Document: Roc Leon 07-11-2015 EKG QRS axis -1 deg Invalid Interpretation Code [facility] Work Phone: [phone] Interpretation Marked sinus Bradyca rdia - occasional ectopic ventricular beat -RSR(V1) -nondiagnostic. BORDERLINE RHYTHM Invalid Interpretation Code [facility] Work Phone: [phone] P [place] 42 deg Invalid Interpretation Code [facility] Work Phone: [phone] IA Interval 198 ms Invalid Interpretation Code [facility] Work Phone: [phone] QRS Duration 100 ms Invalid Interpretation Code [facility] Work Phone: [phone] QT Interval new path ms Invalid Interpretation Code [facility] Work Phone: [phone] QTc Winkler 382 ms Invalid Interpretation Code [facility] Work Phone: [phone] T [place] 35 deg Invalid Interpretation Code [facility] Work Phone: [phone] Office Visit: [facility] 07-12-19 15 cardiac risk group B Invalid Interpretation Code [facility] Work Phone: [phone] General cardiovascular disease 10Y risk [#] [place] 11 % Invalid Interpretation Code [facility] Work Phone: [phone] Clinical 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: 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 10-11-2013 Cholesterol in HDL mass conc 59 mg/dL Invalid Interpretation Code [facility] Work Phone: [phone] Cholesterol in LDL mass conc 101 mg/dL Invalid Interpretation Code [facility] Work Phone: [phone] Cholesterol mass conc 175 mg/dL Invalid Interpretation Code [facility] Work Phone: [phone] Lipoprotein.pre-beta mass conc 15 mg/dL Invalid Interpretation Code [facility] Work Phone: [phone] Triglyceride mass conc 77 mg/dL Invalid Interpretation Code [facility] Work Phone: [phone] Clinical Lists Update: [facility] 06-29-2012 Magnesium mass conc 1.6 mg/dL [facility] Work Phone: [phone] Thyrotropin Qn 2.94 u[iU]/mL Invalid Interpretation Code [facility] Work Phone: [phone] Clinical Lists Update: [facility] tetryl screen operator 12-06-2011 Albumin mass conc 3.7 g/dL Invalid Interpretation Code [facility] Work Phone: [phone] ALP enzyme act/vol (Bld) 69 U/L Invalid Interpretation Code [facility] Work Phone: [phone] ALT enzyme act/vol 25 U/L Invalid Interpretation Code [facility] Work Phone: [phone] AST enzyme act/vol 14 U/L Low [facility] Work Phone: [phone] Bilirubin mass conc 0.60 mg/dL Invalid Interpretation Code [facility] Work Phone: [phone] Replaced Document: T4on 0 T4 mass conc 7.0 ug/dL Normal 4.5-12.1 [facility] Work Phone: [phone] Clinical 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 Stool gastrointestinal hemog lobin detection by immunologic method Lower GI hemoglobin IA Ql (Stl) [facility] Work Phone: Vital Signs Date Time Vital Sign Value Performing Clinician Facility 11-17-2024 13:46-0400 Body height 179.[address] Shreyas Amezquita DO Work Phone: [facility] 11-17-2024 13:46-0400 Body mass index (BMI) [Ratio] 21.9 kg/m2 Dr. Shreyas Amezquita DO Work Phone: [facility] 11-17-2024 13:46-0400 Body weight 70.[address] Shreyas Amezquita DO Work Phone: [facility] 11-17-2024 13:46-0400 Diastolic blood pressure 62 mm[Hg] Dr. Shreyas Amezquita DO Work Phone: [facility] 11-17-2024 13:46-0400 Heart rate 64 /min Dr. Shreyas Amezquita DO Work Phone: [facility] 11-17-2024 13:46-0400 Respiratory rate 16 /min Dr. Shreyas Ameqzuita DO Work Phone: [facility] 11-17-2024 13:46-0400 Systolic blood pressure 96 mm[Hg] Dr. Shreyas Amezquita DO Work Phone: [facility] 11-08-2024 10:48-0400 Body mass index (BMI) [Ratio] 21.74 kg/m2 Robert Singh MD Work Phone: [facility] 11-08-2024 10:48-0400 Body temperature 97.3 [degF] Robert Singh MD Work Phone: [facility] 11-08-2024 10:48-0400 Body weight 69.72 kg Robert Singh MD Work Phone: [facility] 11-08-2024 10:48-0400 Heart rate 63 /min Robert Singh MD Work Phone: [facility] 11-08-2024 10:48-0400 SaO2% (BldA) [Mass fraction] 99 % Robert Singh MD Work Phone: [facility] 11-02-2024 09:09-0400 Diastolic blood pressure 65 mm[Hg] Injection Wstr Work Phone: [facility] 11-02-2024 09:09-0400 Heart rate 66 /min Injection Wstr Work Phone: [facility] 11-02-2024 09:09-0400 Respiratory rate 12 /min Injection Wstr Work Phone: [facility] 11-02-2024 09:09-0400 SaO2% (BldA) [Mass fraction] 97 % Injection Wstr Work Phone: [facility] 11-02-2024 09:09-0400 Systolic blood pressure 120 mm[Hg] Injection Wstr Work Phone: [facility] 10-26-2024 13:06-0400 Body temperature 97.39 [degF] Robert Singh MD Work Phone: [facility] 10-26-2024 13:06-0400 Diastolic blood pressure 64 mm[Hg] Robert Singh MD Work Phone: [facility] 10-26-2024 13:06-0400 Heart rate 90 /min [email or web address] 10-26-2024 13:06-0400 Respiratory rate 16 /min [facility] 10-26-2024 13:06-0400 SaO2% (BldA) [Mass fraction] 95 % [facility] 10-26-2024 13:06-0400 Systolic blood pressure 121 mm[Hg] Robert Singh MD [email or web address] 10-26-2024 09:30-0400 Body height 179.1 cm Robert Singh MD [email or web address] 10-26-2024 09:30-0400 Body mass index (BMI) [Ratio] 20.94 kg/m2 Robert Singh MD Work Phone: [facility] 10-26-2024 09:30-0400 Body weight 67.13 kg Robert Singh MD Work Phone: [facility] 10-12-2024 08:59-0400 Body mass index (BMI) [Ratio] 23.11 kg/m2 Injection Wstr Work Phone: [facility] 10-12-2024 08:59-0400 Body temperature 97.59 [degF] Injection Wstr Work Phone: [facility] 10-12-2024 08:59-0400 Body weight 70.76 kg Injection Wstr Work Phone: [facility] 10-12-2024 08:59-0400 Diastolic blood pressure 69 mm[Hg] Injection Wstr Work Phone: [facility] 10-12-2024 08:59-0400 Heart rate 93 /min Injection Wstr Work Phone: [facility] 10-12-2024 08:59-0400 SaO2% (BldA) [Mass fraction] 97 % Injection Wstr Work Phone: [facility] 10-12-2024 08:59-0400 Systolic blood pressure 113 mm[Hg] Injection Wstr Work Phone: [facility] 09-21-2024 08:30-0400 Body mass index (BMI) [Ratio] 22.66 kg/m2 Tanna Shen Work Phone: [facility] 09-21-2024 08:30-0400 Body temperature 97.39 [degF] Tanna Shen Work Phone: [facility] 09-21-2024 08:30-0400 Body weight 69.4 kg Tanna Shen Work Phone: [facility] 09-21-2024 08:30-0400 Diastolic blood pressure 52 mm[Hg] Tanna Shen Work Phone: [facility] 09-21-2024 08:30-0400 Heart rate 60 /min Tanna Shen Work Phone: [facility] 09-21-2024 08:30-0400 SaO2% (BldA) [Mass fraction] 97 % Tanna Shen Work Phone: [facility] 09-21-2024 08:30-0400 Systolic blood pressure 95 mm[Hg] Tanna Shen Work Phone: [facility] 09-17-2024 10:45-0400 Body temperature 98.91 [degF] Robert Singh MD Work Phone: [facility] 09-17-2024 10:45-0400 Body weight 70.31 kg Robert Singh MD Work Phone: [facility] 09-17-2024 10:45-0400 Diastolic blood pressure 59 mm[Hg] Robert Singh [email or web address] 09-17-2024 10:45-0400 Heart rate 64 /min Robert Singh MD Work Phone: [facility] 09-17-2024 10:45-0400 SaO2% (BldA) [Mass fraction] 97 % Robert Singh MD Work Phone: [facility] 09-17-2024 10:45-0400 Systolic blood pressure 110 mm[Hg] Robert Singh MD Work Phone: [facility] 08-11-2024 09:21-0400 Body mass index (BMI) [Ratio] 22.81 kg/m2 Injection Wstr Work Phone: [facility] 08-11-2024 09:21-0400 Body weight 69.85 kg Injection Wstr Work Phone: [facility] 08-11-2024 09:21-0400 Diastolic blood pressure 117 mm[Hg] Injection Wstr Work Phone: [facility] 08-11-2024 09:21-0400 Heart rate 75 /min Injection Wstr Work Phone: [facility] 08-11-2024 09:21-0400 Respiratory rate 12 /min Injection Wstr Work Phone: [facility] 08-11-2024 09:21-0400 SaO2% (BldA) [Mass fraction] 97 % Injection Wstr Work Phone: [facility] 08-11-2024 09:21-0400 Systolic blood pressure 159 mm[Hg] Injection Wstr Work Phone: [facility] 07-14-2024 14:01-0400 Body temperature 98.1 [degF] Dr. Shreyas Amezquita DO Work Phone: [facility] 07-14-2024 14:01-0400 Diastolic blood pressure 68 mm[Hg] Dr. hSreyas Amezquita DO Work Phone: [facility] 07-14-2024 14:01-0400 Heart rate 80 /min Dr. Shreyas Amezquita DO Work Phone: [facility] 07-14-2024 14:01-0400 Respiratory rate 16 /min Dr. Shreyas Amezquita DO Work Phone: [facility] 07-14-2024 14:01-0400 SaO2% (BldA) [Mass fraction] 95 % Dr. Shreyas Amezquita DO Work Phone: [facility] 07-14-2024 14:01-0400 Systolic blood pressure 104 mm[Hg] Dr. Shreyas Amezquita DO Work Phone: [facility] 06-29-2024 09:28-0400 Body mass index (BMI) [Ratio] 23.11 kg/m2 Acosta Barnesi DO Work Phone: [facility] 06-29-2024 09:28-0400 Body temperature 97.3 [degF] Aocsta Masci DO Work Phone: [facility] 06-29-2024 09:28-0400 Body weight 70.76 kg Acosta Cameroni DO Work Phone: [facility] 06-29-2024 09:28-0400 Diastolic blood pressure 57 mm[Hg] Acosta Barnesi DO Work Phone: [facility] 06-29-2024 09:28-0400 Heart rate 77 /min Acosta Barnesi DO Work Phone: [facility] 06-29-2024 09:28-0400 SaO2% (BldA) [Mass fraction] 98 % Acosta Barnesi DO Work Phone: [facility] 06-29-2024 09:28-0400 Systolic blood pressure 94 mm[Hg] Acosta Cameroni DO Work Phone: [facility] 06-17-2024 08:51-0400 Body mass index (BMI) [Ratio] 22.3 kg/m2 Dr. Shreyas Aemzquita DO Work Phone: [facility] 06-17-2024 08:51-0400 Body temperature 97.7 [degF] Dr. Shreyas Amezquita DO Work Phone: [facility] 06-17-2024 08:51-0400 Body weight 71.[address] Shreyas Amezquita DO Work Phone: [facility] 06-17-2024 08:51-0400 Diastolic blood pressure 67 mm[Hg] Dr. Shreyas Amezquita DO Work Phone: [facility] 06-17-2024 08:51-0400 Heart rate 96 /min Dr. Shreyas Amezquita DO Work Phone: [facility] 06-17-2024 08:51-0400 Respiratory rate 14 /min Dr. Shreyas Amezquita DO Work Phone: [facility] 06-17-2024 08:51-0400 SaO2% (BldA) [Mass fraction] 97 % Dr. Shreyas Amezquita DO Work Phone: [facility] 06-17-2024 08:51-0400 Systolic blood pressure 109 mm[Hg] Dr. Shreyas Amezquita DO Work Phone: [facility] 06-07-2024 09:02-0400 Body mass index (BMI) [Ratio] 23.4 kg/m2 Injection Wstr Work Phone: [facility] 06-07-2024 09:02-0400 Body temperature 97.3 [degF] Injection Wstr Work Phone: [facility] 06-07-2024 09:02-0400 Body weight 71.67 kg Injection Wstr Work Phone: [facility] 06-07-2024 09:02-0400 Diastolic blood pressure 74 mm[Hg] Injection Wstr Work Phone: [facility] 06-07-2024 09:02-0400 Heart rate 82 /min Injection Wstr Work Phone: [facility] 06-07-2024 09:02-0400 SaO2% (BldA) [Mass fraction] 98 % Injection Wstr Work Phone: [facility] 06-07-2024 09:02-0400 Systolic blood pressure 108 mm[Hg] Injection Wstr Work Phone: [facility] 05-18-2024 14:00-0400 Body height 179.[address] Shreyas Amezquita DO Work Phone: [facility] 05-18-2024 14:00-0400 Body mass index (BMI) [Ratio] 21.7 kg/m2 Dr. Shreyas Amezquita DO Work Phone: [facility] 05-18-2024 14:00-0400 Body weight 69.[address] Shreyas Amezquita DO Work Phone: [facility] 05-18-2024 14:00-0400 Diastolic blood pressure 60 mm[Hg] Dr. Shreyas Amezquita DO Work Phone: [facility] 05-18-2024 14:00-0400 Heart rate 67 /min Dr. Shreyas Amezquita DO Work Phone: [facility] 05-18-2024 14:00-0400 Respiratory rate 16 /min Dr. Shreyas Amezquita DO Work Phone: [facility] 05-18-2024 14:00-0400 Systolic blood pressure 89 mm[Hg] Dr. Shreyas Amezquita DO Work Phone: [facility] 05-17-2024 11:16-0400 Body mass index (BMI) [Ratio] 22.74 kg/m2 Tanna Cabreraight Work Phone: [facility] 05-17-2024 11:16-0400 Body temperature 97.11 [degF] Tanna Shen Work Phone: [facility] 05-17-2024 11:16-0400 Body weight 69.63 kg Tanna Cabreraight Work Phone: [facility] 05-17-2024 11:16-0400 Diastolic blood pressure 55 mm[Hg] Tanna Shen Work Phone: [facility] 05-17-2024 11:16-0400 Heart rate 78 /min Tanna Shen Work Phone: [facility] 05-17-2024 11:16-0400 SaO2% (BldA) [Mass fraction] 98 % Tanna Cabreraight Work Phone: [facility] 05-17-2024 11:16-0400 Systolic blood pressure 105 mm[Hg] Tanna Shen Work Phone: [facility] 04-19-2024 11:12-0500 Body mass index (BMI) [Ratio] 23.99 kg/m2 Injection Wstr Work Phone: [facility] 04-19-2024 11:12-0500 Body weight 73.48 kg Injection Wstr Work Phone: [facility] 04-19-2024 11:12-0500 Diastolic blood pressure 68 mm[Hg] Injection Wstr Work Phone: [facility] 04-19-2024 11:12-0500 Heart rate 63 /min Injection Wstr Work Phone: [facility] 04-19-2024 11:12-0500 Respiratory rate 12 /min Injection Wstr Work Phone: [facility] 04-19-2024 11:12-0500 SaO2% (BldA) [Mass fraction] 96 % Injection Wstr Work Phone: [facility] 04-19-2024 11:12-0500 Systolic blood pressure 117 mm[Hg] Injection Wstr Work Phone: [facility] 02-23-2024 08:46-0500 Body mass index (BMI) [Ratio] 22.36 kg/m2 Tanna Shen Work Phone: [facility] 02-23-2024 08:46-0500 Body temperature 97.11 [degF] Tanna Shen Work Phone: [facility] 02-23-2024 08:46-0500 Body weight 68.49 kg Tanna Shen Work Phone: [facility] 02-23-2024 08:46-0500 Diastolic blood pressure 61 mm[Hg] Tanna Shen Work Phone: [facility] 02-23-2024 08:46-0500 Heart rate 88 /min Tanna Shen Work Phone: [facility] 02-23-2024 08:46-0500 SaO2% (BldA) [Mass fraction] 98 % Tanna Shen Work Phone: [facility] 02-23-2024 08:46-0500 Systolic blood pressure 106 mm[Hg] Tanna Shen Work Phone: [facility] 02-09-2024 10:34-0500 Body mass index (BMI) [Ratio] 22.07 kg/m2 Injection Wstr Work Phone: [facility] 02-09-2024 10:34-0500 Body weight 67.59 kg Injection Wstr Work Phone: [facility] 02-09-2024 10:34-0500 Diastolic blood pressure 56 mm[Hg] Injection Wstr Work Phone: [facility] 02-09-2024 10:34-0500 Heart rate 79 /min Injection Wstr Work Phone: [facility] 02-09-2024 10:34-0500 Respiratory rate 12 /min Injection Wstr Work Phone: [facility] 02-09-2024 10:34-0500 SaO2% (BldA) [Mass fraction] 97 % Injection Wstr Work Phone: [facility] 02-09-2024 10:34-0500 Systolic blood pressure 99 mm[Hg] Injection Wstr Work Phone: [facility] 01-12-2024 09:44-0500 Body mass index (BMI) [Ratio] 22.96 kg/m2 Injection Wstr Work Phone: [facility] 01-12-2024 09:44-0500 Body temperature 99.1 [degF] Injection Wstr Work Phone: [facility] 01-12-2024 09:44-0500 Body weight 70.31 kg Injection Wstr Work Phone: [facility] 01-12-2024 09:44-0500 Diastolic blood pressure 63 mm[Hg] Injection Wstr Work Phone: [facility] 11-18-2024 09:44-0500 Heart rate 91 /min Injection Wstr Work Phone: [facility] 01-12-2024 09:44-0500 SaO2% (BldA) [Mass fraction] 99 % Injection Wstr Work Phone: [facility] 01-12-2024 09:44-0500 Systolic blood pressure 101 mm[Hg] Injection Wstr Work Phone: [facility] 12-15-2023 10:31-0400 Diastolic blood pressure 65 mm[Hg] Injection Wstr Work Phone: [facility] 12-15-2023 10:31-0400 Systolic blood pressure 97 mm[Hg] Injection Wstr Work Phone: [facility] 12-15-2023 10:29-0400 Body mass index (BMI) [Ratio] 23.25 kg/m2 Injection Wstr Work Phone: [facility] 12-15-2023 10:29-0400 Body temperature 98.01 [degF] Injection Wstr Work Phone: [facility] 12-15-2023 10:29-0400 Body weight 71.22 kg Injection Wstr Work Phone: [facility] 12-15-2023 10:29-0400 Heart rate 72 /min Injection Wstr Work Phone: [facility] 12-15-2023 10:29-0400 Respiratory rate 12 /min Injection Wstr Work Phone: [facility] 12-15-2023 10:29-0400 SaO2% (BldA) [Mass fraction] 98 % Injection Wstr Work Phone: [facility] 11-17-2023 10:04-0400 Body mass index (BMI) [Ratio] 23.62 kg/m2 Acosta Cruz DO Work Phone: [facility] 11-17-2023 10:04-0400 Body temperature 98.4 [degF] Acosta Cruz DO Work Phone: [facility] 11-17-2023 10:04-0400 Body weight 72.35 kg Acosta Cruz DO Work Phone: [facility] 11-17-2023 10:04-0400 Diastolic blood pressure 68 mm[Hg] Acosta Barnesi DO Work Phone: [facility] 11-17-2023 10:04-0400 Heart rate 91 /min Acosta Barnesi DO Work Phone: [facility] 11-17-2023 10:04-0400 SaO2% (BldA) [Mass fraction] 96 % Acosta Barnesi DO Work Phone: [facility] 11-17-2023 10:04-0400 Systolic blood pressure 111 mm[Hg] Acosta Barnesi DO Work Phone: [facility] 11-03-2023 10:11-0400 Body temperature 99 [degF] Injection Wstr Work Phone: [facility] 11-03-2023 10:11-0400 Diastolic blood pressure 70 mm[Hg] Injection Wstr Work Phone: [facility] 11-03-2023 10:11-0400 Heart rate 88 /min Injection Wstr Work Phone: [facility] 11-03-2023 10:11-0400 Respiratory rate 12 /min Injection Wstr Work Phone: [facility] 11-03-2023 10:11-0400 SaO2% (BldA) [Mass fraction] 97 % Injection Wstr Work Phone: [facility] 11-03-2023 10:11-0400 Systolic blood pressure 110 mm[Hg] Injection Wstr Work Phone: [facility] 10-20-2023 09:43-0400 Body mass index (BMI) [Ratio] 23.7 kg/m2 Injection Wstr Work Phone: [facility] 10-20-2023 09:43-0400 Body temperature 97.39 [degF] Injection Wstr Work Phone: [facility] 10-20-2023 09:43-0400 Body weight 72.58 kg Injection Wstr Work Phone: [facility] 10-20-2023 09:43-0400 Diastolic blood pressure 55 mm[Hg] Injection Wstr Work Phone: [facility] 10-20-2023 09:43-0400 Heart rate 74 /min Injection Wstr Work Phone: [facility] 10-20-2023 09:43-0400 Respiratory rate 12 /min Injection Wstr Work Phone: [facility] 10-20-2023 09:43-0400 SaO2% (BldA) [Mass fraction] 98 % Injection Wstr Work Phone: [facility] 10-20-2023 09:43-0400 Systolic blood pressure 90 mm[Hg] Injection Wstr Work Phone: [facility] 09-10-2023 09:16-0400 Body mass index (BMI) [Ratio] 25.03 kg/m2 Injection Wstr Work Phone: [facility] 09-10-2023 09:16-0400 Body temperature 97.9 [degF] Injection Wstr Work Phone: [facility] 09-10-2023 09:16-0400 Body weight 76.66 kg Injection Wstr Work Phone: [facility] 09-10-2023 09:16-0400 Diastolic blood pressure 57 mm[Hg] Injection Wstr Work Phone: [facility] 09-10-2023 09:16-0400 Heart rate 95 /min Injection Wstr Work Phone: [facility] 09-10-2023 09:16-0400 Respiratory rate 12 /min Injection Wstr Work Phone: [facility] 09-10-2023 09:16-0400 SaO2% (BldA) [Mass fraction] 97 % Injection Wstr Work Phone: [facility] 09-10-2023 09:16-0400 Systolic blood pressure 115 mm[Hg] Injection Wstr Work Phone: [facility] 08-11-2023 09:46-0400 Diastolic blood pressure 57 mm[Hg] Injection Wstr Work Phone: [facility] 08-11-2023 09:46-0400 Systolic blood pressure 100 mm[Hg] Injection Wstr Work Phone: [facility] 08-11-2023 09:19-0400 Body mass index (BMI) [Ratio] 24.73 kg/m2 Acosta Masci DO Work Phone: [facility] 08-11-2023 09:19-0400 Body temperature 97.59 [degF] Acosta Masci DO Work Phone: [facility] 08-11-2023 09:19-0400 Body weight 75.75 kg Acosta Masci DO Work Phone: [facility] 08-11-2023 09:19-0400 Diastolic blood pressure 56 mm[Hg] Acosta Masci DO Work Phone: [facility] 08-11-2023 09:19-0400 Heart rate 77 /min Acosta Masci DO Work Phone: [facility] 08-11-2023 09:19-0400 SaO2% (BldA) [Mass fraction] 97 % Acosta Masci DO Work Phone: [facility] 08-11-2023 09:19-0400 Systolic blood pressure 92 mm[Hg] Acosta Masci DO Work Phone: [facility] 07-15-2023 15:53-0400 Body mass index (BMI) [Ratio] 25.18 kg/m2 Injection Wstr Work Phone: [facility] 07-15-2023 15:53-0400 Body temperature 98.49 [degF] Injection Wstr Work Phone: [facility] 07-15-2023 15:53-0400 Body weight 77.11 kg Injection Wstr Work Phone: [facility] 07-15-2023 15:53-0400 Diastolic blood pressure 54 mm[Hg] Injection Wstr Work Phone: [facility] 07-15-2023 15:53-0400 Heart rate 71 /min Injection Wstr Work Phone: [facility] 07-15-2023 15:53-0400 Respiratory rate 12 /min Injection Wstr Work Phone: [facility] 07-15-2023 15:53-0400 Systolic blood pressure 117 mm[Hg] Injection Wstr Work Phone: [facility] 07-07-2023 10:46-0400 Body mass index (BMI) [Ratio] 24.66 kg/m2 Acosta Masci DO Work Phone: [facility] 07-07-2023 10:46-0400 Body temperature 97.7 [degF] Acosta Masci DO Work Phone: [facility] 07-07-2023 10:46-0400 Body weight 75.52 kg Acosta Masci DO Work Phone: [facility] 07-07-2023 10:46-0400 Diastolic blood pressure 67 mm[Hg] Acosta Masci DO Work Phone: [facility] 07-07-2023 10:46-0400 Heart rate 92 /min Acosta Masci DO Work Phone: [facility] 07-07-2023 10:46-0400 SaO2% (BldA) [Mass fraction] 98 % Acosta Masci DO Work Phone: [facility] 07-07-2023 10:46-0400 Systolic blood pressure 112 mm[Hg] Acosta Masci DO Work Phone: [facility] 06-06-2023 09:19-0400 Body temperature 98.1 [degF] Acosta Masci DO Work Phone: [facility] 06-06-2023 09:19-0400 Body weight 77.11 kg Acosta Masci DO Work Phone: [facility] 06-06-2023 09:19-0400 Diastolic blood pressure 62 mm[Hg] Acosta Masci DO Work Phone: [facility] 06-06-2023 09:19-0400 Heart rate 84 /min Acosta Barnesi DO Work Phone: [facility] 06-06-2023 09:19-0400 SaO2% (BldA) [Mass fraction] 98 % Acosta Barnesi DO Work Phone: [facility] 06-06-2023 09:19-0400 Systolic blood pressure 108 mm[Hg] Acosta Barnesi DO Work Phone: [facility] 05-12-2023 12:53-0400 Diastolic blood pressure 59 mm[Hg] Chioma Arredondo W[employer]ER[employer] Work Phone: [facility] 05-12-2023 12:53-0400 Heart rate 76 /min Chioma Arredondo WATER SOFTENER INSTALLER.M[employer]OR EXPERT Work Phone: [facility] 05-12-2023 12:53-0400 Systolic blood pressure 120 mm[Hg] Hartington Arredondo WATER SOFTENER INSTALLER.M[employer]OR EXPERT Work Phone: [facility] 05-12-2023 12:24-0400 Body temperature 97.5 [degF] Chioma Arredondo WATER SOFTENER INSTALLER.M[employer]OR EXPERT Work Phone: [facility] 05-12-2023 12:24-0400 Respiratory rate 14 /min Chioma Arredondo WATER SOFTENER INSTALLER.M[employer]OR EXPERT Work Phone: [facility] 05-12-2023 12:24-0400 SaO2% (BldA) [Mass fraction] 93 % Chioma Arredondo WATER SOFTENER INSTALLER.M[employer]OR EXPERT Work Phone: [facility] 04-25-2023 11:06-0500 Body height 175 cm Tanna Cabreraight Work Phone: [facility] 04-25-2023 11:06-0500 Body temperature 98.1 [degF] Tanna Shen Work Phone: [facility] 04-25-2023 11:06-0500 Body weight 79.15 kg Tanna Shen Work Phone: [facility] 04-25-2023 11:06-0500 Diastolic blood pressure 61 mm[Hg] Tanna Shen Work Phone: [facility] 04-25-2023 11:06-0500 Heart rate 85 /min Tanna Shen Work Phone: [facility] 04-25-2023 11:06-0500 SaO2% (BldA) [Mass fraction] 96 % Tanna Shen Work Phone: [facility] 04-25-2023 11:06-0500 Systolic blood pressure 96 mm[Hg] Tanan Shen Work Phone: [facility] 04-08-2023 13:23-0500 Body height 179.[address] Shreyas Amezquita Work Phone: [facility] 04-08-2023 13:23-0500 Body mass index (BMI) [Ratio] 24 kg/m2 Dr. Shreyas Amezquita Work Phone: [facility] 04-08-2023 13:23-0500 Body weight 77.[address] Shreyas Amezquita Work Phone: [facility] 04-08-2023 13:23-0500 Diastolic blood pressure 56 mm[Hg] Dr. Shreyas Amezquita Work Phone: [facility] 04-08-2023 13:23-0500 Heart rate 76 /min Dr. Shreyas Amezquita Work Phone: [facility] 04-08-2023 13:23-0500 Respiratory rate 18 /min Dr. Shreyas Amezquita Work Phone: [facility] 04-08-2023 13:23-0500 Systolic blood pressure 103 mm[Hg] Dr. Shreyas Amezquita Work Phone: [facility] 04-03-2023 15:36-0500 Body mass index (BMI) [Ratio] 24.5 kg/m2 Dr. Shreyas Amezquita Work Phone: [facility] 04-03-2023 15:36-0500 Body temperature 98.3 [degF] Dr. Shreyas Amezquita Work Phone: [facility] 04-03-2023 15:36-0500 Body weight 78.[address] Shreyas Amezquita Work Phone: [facility] 04-03-2023 15:36-0500 Diastolic blood pressure 57 mm[Hg] Dr. Shreyas Amezquita Work Phone: [facility] 04-03-2023 15:36-0500 Heart rate 84 /min Dr. Shreyas Amezquita Work Phone: [facility] 04-03-2023 15:36-0500 Respiratory rate 18 /min Dr. Shreyas Amezquita Work Phone: [facility] 04-03-2023 15:36-0500 SaO2% (BldA) [Mass fraction] 97 % Dr. Shreyas Amezquita Work Phone: [facility] 04-03-2023 15:36-0500 Systolic blood pressure 103 mm[Hg] Dr. Shreyas Amezquita Work Phone: [facility] 03-11-2023 14:21-0500 Diastolic blood pressure 56 mm[Hg] Dr. Shreyas Amezquita Work Phone: [facility] 03-11-2023 14:21-0500 Heart rate 80 /min Dr. Shreyas Amezquita Work Phone: [facility] 03-11-2023 14:21-0500 Respiratory rate 18 /min Dr. Shreyas Amezquita Work Phone: [facility] 03-11-2023 14:21-0500 SaO2% (BldA) [Mass fraction] 100 % Dr. Shreyas Amezquita Work Phone: [facility] 03-11-2023 14:21-0500 Systolic blood pressure 115 mm[Hg] Dr. Shreyas Amezquita Work Phone: [facility] 03-11-2023 12:08-0500 Body height 179.[address] Shreyas Amezquita Work Phone: [facility] 03-11-2023 12:08-0500 Body mass index (BMI) [Ratio] 23.7 kg/m2 Dr. Shreyas Amezquita Work Phone: [facility] 03-11-2023 12:08-0500 Body temperature 96.2 [degF] Dr. Shreyas Amezquita Work Phone: [facility] 03-11-2023 12:08-0500 Body weight 76.[address] Shreyas Amezquita Work Phone: [facility] 03-06-2023 14:06-0500 Diastolic blood pressure 65 mm[Hg] Dr. Shreyas Amezquita Work Phone: [facility] 03-06-2023 14:06-0500 Heart rate 83 /min Dr. Shreyas Amezquita Work Phone: [facility] 03-06-2023 14:06-0500 Systolic blood pressure 128 mm[Hg] Dr. Shreyas Amezquita Work Phone: [facility] 03-06-2023 13:41-0500 Body height 177.[address] Shreyas Amezquita Work Phone: [facility] 03-06-2023 13:41-0500 Body mass index (BMI) [Ratio] 22.1 kg/m2 Dr. Shreyas Amezquita Work Phone: [facility] 03-06-2023 13:41-0500 Body temperature 97 [degF] Dr. Shreyas Amezquita Work Phone: [facility] 03-06-2023 13:41-0500 Body weight 69.[address] Shreyas Amezquita Work Phone: [facility] 03-06-2023 13:41-0500 Respiratory rate 16 /min Dr. Shreyas Amezquita Work Phone: [facility] 03-06-2023 13:41-0500 SaO2% (BldA) [Mass fraction] 94 % Dr. Shreyas Amezquita Work Phone: [facility] 03-03-2023 13:55-0500 Body temperature 97.8 [degF] Dr. Shreyas Amezquita Work Phone: [facility] 03-03-2023 13:55-0500 Diastolic blood pressure 66 mm[Hg] Dr. Shreyas Amezquita Work Phone: [facility] 03-03-2023 13:55-0500 Heart rate 106 /min Dr. Shreyas Amezquita Work Phone: [facility] 03-03-2023 13:55-0500 Respiratory rate 14 /min Dr. Shreyas Amezquita Work Phone: [facility] 03-03-2023 13:55-0500 SaO2% (BldA) [Mass fraction] 97 % Dr. Shreyas Amezquita Work Phone: [facility] 03-03-2023 13:55-0500 Systolic blood pressure 108 mm[Hg] Dr. Shreyas Amezquita Work Phone: [facility] 02-20-2023 14:23-0500 Body mass index (BMI) [Ratio] 24.4 kg/m2 Dr. Shreyas Amezquita Work Phone: [facility] 02-20-2023 14:23-0500 Body temperature 98.8 [degF] Dr. Shreyas Amezquita Work Phone: [facility] 02-20-2023 14:23-0500 Body weight 78.[address] Shreyas Amezquita Work Phone: [facility] 02-20-2023 14:23-0500 Diastolic blood pressure 69 mm[Hg] Dr. Shreyas Amezquita Work Phone: [facility] 02-20-2023 14:23-0500 Heart rate 82 /min Dr. Shreyas Amezquita Work Phone: [facility] 02-20-2023 14:23-0500 Respiratory rate 18 /min Dr. Shreyas Amezquita Work Phone: [facility] 02-20-2023 14:23-0500 SaO2% (BldA) [Mass fraction] 98 % Dr. Shreyas Amezquita Work Phone: [facility] 02-20-2023 14:23-0500 Systolic blood pressure 126 mm[Hg] Dr. Shreyas Amezquita Work Phone: [facility] 02-11-2023 11:39-0500 Body temperature 98.6 [degF] Dr. Shreyas Amezquita Work Phone: [facility] 02-11-2023 11:39-0500 Diastolic blood pressure 76 mm[Hg] Dr. Shreyas Amezuqita Work Phone: [facility] 02-11-2023 11:39-0500 Heart rate 95 /min Dr. Shreyas Amezquita Work Phone: [facility] 02-11-2023 11:39-0500 Respiratory rate 12 /min Dr. Shreyas Amezquita Work Phone: [facility] 02-11-2023 11:39-0500 SaO2% (BldA) [Mass fraction] 98 % Dr. Shreyas Amezquita Work Phone: [facility] 02-11-2023 11:39-0500 Systolic blood pressure 124 mm[Hg] Dr. Shreyas Amezquita Work Phone: [facility] 01-22-2023 14:01-0500 Body mass index (BMI) [Ratio] 24.7 kg/m2 Dr. Shreyas Amezquita Work Phone: [facility] 01-22-2023 14:01-0500 Body temperature 98.2 [degF] Dr. Shreyas Amezquita Work Phone: [facility] 01-22-2023 14:01-0500 Body weight 79.[address] Shreyas Amezquita Work Phone: [facility] 01-22-2023 14:01-0500 Diastolic blood pressure 74 mm[Hg] Dr. Shryeas Amezquita Work Phone: [facility] 01-22-2023 14:01-0500 Heart rate 86 /min Dr. Shreyas Amezquita Work Phone: [facility] 01-22-2023 14:01-0500 Respiratory rate 18 /min Dr. Shreyas Amezquita Work Phone: [facility] 01-22-2023 14:01-0500 SaO2% (BldA) [Mass fraction] 97 % Dr. Shreyas Amezquita Work Phone: [facility] 01-22-2023 14:01-0500 Systolic blood pressure 126 mm[Hg] Dr. Shreyas Amezquita Work Phone: [facility] 12-11-2022 12:15-0400 Body temperature 98.7 [degF] Dr. Shreyas Amezquita Work Phone: [facility] 12-11-2022 12:15-0400 Diastolic blood pressure 63 mm[Hg] Dr. Shreyas Amezquita Work Phone: [facility] 12-11-2022 12:15-0400 Heart rate 110 /min Dr. Shreyas Amezquita Work Phone: [facility] 12-11-2022 12:15-0400 Respiratory rate 17 /min Dr. Shreyas Amezquita Work Phone: [facility] 12-11-2022 12:15-0400 SaO2% (BldA) [Mass fraction] 95 % Dr. Shreyas Amezquita Work Phone: [facility] 12-11-2022 12:15-0400 Systolic blood pressure 105 mm[Hg] Dr. Shreyas Amezquita Work Phone: [facility] 10-07-2022 07:57-0400 Body height 179.[address] Shreyas Amezquita Work Phone: [facility] 10-07-2022 07:57-0400 Body mass index (BMI) [Ratio] 24 kg/m2 Dr. Shreyas Amezquita Work Phone: [facility] 10-07-2022 07:57-0400 Body temperature 97.2 [degF] Dr. Shreyas Amezquita Work Phone: [facility] 10-07-2022 07:57-0400 Body weight 77.[address] Shreyas Amezquita Work Phone: [facility] 10-07-2022 07:57-0400 Heart rate 81 /min Dr. Shreyas Amezquita Work Phone: [facility] 10-07-2022 07:57-0400 Respiratory rate 18 /min Dr. Shreyas Amezquita Work Phone: [facility] 10-07-2022 07:57-0400 SaO2% (BldA) [Mass fraction] 97 % Dr. Shreyas Amezquita Work Phone: [facility] 08-29-2022 12:14-0400 Body height 179.[address] Shreyas Amezquita Work Phone: [facility] 08-29-2022 12:14-0400 Body mass index (BMI) [Ratio] 24.2 kg/m2 Dr. Shreyas Amezquita Work Phone: [facility] 08-29-2022 12:14-0400 Body temperature 98.4 [degF] Dr. Shreyas Amezquita Work Phone: [facility] 08-29-2022 12:14-0400 Body weight 77.[address] Shreyas Amezquita Work Phone: [facility] 08-29-2022 12:14-0400 Diastolic blood pressure 67 mm[Hg] Dr. Shreyas Amezquita Work Phone: [facility] 08-29-2022 12:14-0400 Heart rate 94 /min Dr. Shreyas Amezquita Work Phone: [facility] 08-29-2022 12:14-0400 Respiratory rate 20 /min Dr. Shreyas Amezquita Work Phone: [facility] 08-29-2022 12:14-0400 SaO2% (BldA) [Mass fraction] 94 % Dr. Shreyas Amezquita Work Phone: [facility] 08-29-2022 12:14-0400 Systolic blood pressure 113 mm[Hg] Dr. Shreyas Amezquita Work Phone: [facility] 08-12-2022 10:34-0400 Body temperature 98 [degF] Dr. Shreyas Amezquita Work Phone: [facility] 08-12-2022 10:34-0400 Diastolic blood pressure 58 mm[Hg] Dr. Shreyas Amezquita Work Phone: [facility] 08-12-2022 10:34-0400 Heart rate 88 /min Dr. Shreyas Amezquita Work Phone: [facility] 08-12-2022 10:34-0400 Respiratory rate 16 /min Dr. Shreyas Amezquita Work Phone: [facility] 08-12-2022 10:34-0400 SaO2% (BldA) [Mass fraction] 94 % Dr. Shreyas Amezquita Work Phone: [facility] 08-12-2022 10:34-0400 Systolic blood pressure 102 mm[Hg] Dr. Shreyas Amezquita Work Phone: [facility] 06-08-2022 12:06-0400 Body mass index (BMI) [Ratio] 25.2 kg/m2 Dr. Shreyas Amezquita Work Phone: [facility] 06-08-2022 12:06-0400 Body temperature 97.7 [degF] Dr. Shreyas Amezquita Work Phone: [facility] 06-08-2022 12:06-0400 Body weight 80.[address] Shreyas Amezquita Work Phone: [facility] 06-08-2022 12:06-0400 Diastolic blood pressure 82 mm[Hg] Dr. Shreyas Amezquita Work Phone: [facility] 06-08-2022 12:06-0400 Heart rate 71 /min Dr. Shreyas Amezquita Work Phone: [facility] 06-08-2022 12:06-0400 Respiratory rate 14 /min Dr. Shreyas Amezquita Work Phone: [facility] 06-08-2022 12:06-0400 SaO2% (BldA) [Mass fraction] 95 % Dr. Shreyas Amezquita Work Phone: [facility] 06-08-2022 12:06-0400 Systolic blood pressure 122 mm[Hg] Dr. Shreyas Amezquita Work Phone: [facility] 05-28-2022 15:13-0400 Heart rate 72 /min Dr. Shreyas Amezquita Work Phone: [facility] 05-28-2022 15:13-0400 SaO2% (BldA) [Mass fraction] 97 % Dr. Shreyas Amezquita Work Phone: [facility] 05-28-2022 14:30-0400 Body temperature 98 [degF] Dr. Shreyas Amezquita Work Phone: [facility] 05-28-2022 14:30-0400 Diastolic blood pressure 82 mm[Hg] Dr. Shreyas Amezquita Work Phone: [facility] 05-28-2022 14:30-0400 Respiratory rate 17 /min Dr. Shreyas Amezquita Work Phone: [facility] 05-28-2022 14:30-0400 Systolic blood pressure 134 mm[Hg] Dr. Shreyas Amezquita Work Phone: [facility] 02-21-2022 12:40-0500 Body height 179.[address] Shekhar Arana Work Phone: [facility] 02-21-2022 12:40-0500 Body mass index (BMI) [Ratio] 25.9 kg/m2 Dr. Shekhar Arana Work Phone: [facility] 02-21-2022 12:40-0500 Body temperature 98.4 [degF] Dr. Shekhar Arana Work Phone: [facility] 02-21-2022 12:40-0500 Body weight [address] Shekhar Arana Work Phone: [facility] 02-21-2022 12:40-0500 Diastolic blood pressure 72 mm[Hg] Dr. Shekhar Arana Work Phone: [facility] 02-21-2022 12:40-0500 Heart rate 67 /min Dr. Shekhar Arana Work Phone: [facility] 02-21-2022 12:40-0500 Respiratory rate 16 /min Dr. Shekhar Arana Work Phone: [facility] 02-21-2022 12:40-0500 SaO2% (BldA) [Mass fraction] 99 % Dr. Shehkar Arana Work Phone: [facility] 02-21-2022 12:40-0500 Systolic blood pressure 109 mm[Hg] Dr. Shekhar Arana Work Phone: [facility] 01-28-2022 11:26-0500 Body height 177.[address] Shekhar Arana Work Phone: [facility] Work Phone: 01-28-2022 11:15-0500 Body mass index (BMI) [Ratio] 25.5 kg/m2 Dr. Shekhar Arana Work Phone: [facility] 01-28-2022 11:15-0500 Body temperature 97.9 [degF] Dr. Shekhar Arana Work Phone: [facility] 01-28-2022 11:15-0500 Body weight 80.[address] Shekhar Arana Work Phone: [facility] 01-28-2022 11:15-0500 Diastolic blood pressure 65 mm[Hg] Dr. Shekhar Arana Work Phone: [facility] 01-28-2022 11:15-0500 Heart rate 59 /min Dr. Shekhar Arana Work Phone: [facility] 01-28-2022 11:15-0500 Respiratory rate 16 /min Dr. Shekhar Arana Work Phone: [facility] 01-28-2022 11:15-0500 SaO2% (BldA) [Mass fraction] 97 % Dr. Shekhar Arana Work Phone: [facility] 01-28-2022 11:15-0500 Systolic blood pressure 99 mm[Hg] Dr. Shekhar Arana Work Phone: [facility] 01-09-2022 14:30-0500 Body mass index (BMI) [Ratio] 25.8 kg/m2 Dr. Shekhar Arana Work Phone: [facility] 01-09-2022 14:30-0500 Body weight 81.[address] Shekhar Arana Work Phone: [facility] 01-09-2022 14:30-0500 Diastolic blood pressure 72 mm[Hg] Dr. Shekhar Arana Work Phone: [facility] 01-09-2022 14:30-0500 Heart rate 88 /min Dr. Shekhar Arana Work Phone: [facility] 01-09-2022 14:30-0500 Respiratory rate 16 /min Dr. Shekhar Arana Work Phone: [facility] 01-09-2022 14:30-0500 Systolic blood pressure 110 mm[Hg] Dr. Shekhar Arana Work Phone: [facility] 01-02-2022 10:31-0500 Body mass index (BMI) [Ratio] 25.2 kg/m2 Dr. Shekhar Arana Work Phone: [facility] 01-02-2022 10:31-0500 Body temperature 98.6 [degF] Dr. Shekhar Arana Work Phone: [facility] 01-02-2022 10:31-0500 Body weight 80.[address] Shekhar Arana Work Phone: [facility] 01-02-2022 10:31-0500 Diastolic blood pressure 75 mm[Hg] Dr. Shekhar Arana Work Phone: [facility] 01-02-2022 10:31-0500 Heart rate 89 /min Dr. Shekhar Arana Work Phone: [facility] 01-02-2022 10:31-0500 Respiratory rate 18 /min Dr. Shekhar Arana Work Phone: [facility] 01-02-2022 10:31-0500 SaO2% (BldA) [Mass fraction] 98 % Dr. Shekhar Arana Work Phone: [facility] 01-02-2022 10:31-0500 Systolic blood pressure 122 mm[Hg] Dr. Shekhar Arana Work Phone: [facility] 12-05-2021 13:38-0400 Body temperature 98 [degF] Dr. Shekhar Arana Work Phone: [facility] 12-05-2021 13:38-0400 Diastolic blood pressure 72 mm[Hg] Dr. Shekhar Arana Work Phone: [facility] 12-05-2021 13:38-0400 Heart rate 84 /min Dr. Shekhar Arana Work Phone: [facility] 12-05-2021 13:38-0400 Respiratory rate 14 /min Dr. Shekhar Arana Work Phone: [facility] 12-05-2021 13:38-0400 SaO2% (BldA) [Mass fraction] 98 % Dr. Shekhar Arana Work Phone: [facility] 12-05-2021 13:38-0400 Systolic blood pressure 126 mm[Hg] Dr. Shekhar Arana Work Phone: [facility] 11-10-2021 13:04-0400 Diastolic blood pressure 68 mm[Hg] Dr. Shekhar Arana Work Phone: [facility] Work Phone: 11-10-2021 13:04-0400 Heart rate 84 /min Dr. Shekhar Arana Work Phone: [facility] Work Phone: 11-10-2021 13:04-0400 Respiratory rate 15 /min Dr. Shekhar Arana Work Phone: [facility] Work Phone: 11-10-2021 13:04-0400 SaO2% (BldA) [Mass fraction] 94 % Dr. Shekhar Arana Work Phone: [facility] Work Phone: 11-10-2021 13:04-0400 Systolic blood pressure 133 mm[Hg] Dr. Shekhar Arana Work Phone: [facility] Work Phone: 11-10-2021 09:17-0400 Body height 177.[address] Shekhar Arana Work Phone: [facility] Work Phone: 11-10-2021 09:17-0400 Body mass index (BMI) [Ratio] 26.1 kg/m2 Dr. Shekhar Arana Work Phone: [facility] Work Phone: 11-10-2021 09:17-0400 Body temperature 97.2 [degF] Dr. Shekhar Arana Work Phone: [facility] Work Phone: 11-10-2021 09:17-0400 Body weight 82.[address] Shekhar Arana Work Phone: [facility] Work Phone: 11-08-2021 12:42-0400 Body temperature 97.3 [degF] Dr. Shekhar Arana Work Phone: [facility] Work Phone: 11-08-2021 12:42-0400 Diastolic blood pressure 70 mm[Hg] Dr. Shekhar Arana Work Phone: [facility] Work Phone: 11-08-2021 12:42-0400 Heart rate 92 /min Dr. Shekhar Arana Work Phone: [facility] Work Phone: 11-08-2021 12:42-0400 Respiratory rate 16 /min Dr. Shekhar Arana Work Phone: [facility] Work Phone: 11-08-2021 12:42-0400 SaO2% (BldA) [Mass fraction] 94 % Dr. Shekhar Arana Work Phone: [facility] Work Phone: 11-08-2021 12:42-0400 Systolic blood pressure 140 mm[Hg] Dr. Shekhar Arana Work Phone: [facility] Work Phone: 11-05-2021 10:32-0400 Body mass index (BMI) [Ratio] 26.3 kg/m2 Dr. Shekhar Arana Work Phone: [facility] Work Phone: 11-05-2021 10:32-0400 Body temperature 98.1 [degF] Dr. Shekhar Arana Work Phone: [facility] Work Phone: 11-05-2021 10:32-0400 Body weight 84.[address] Shekhar Arana Work Phone: [facility] Work Phone: 11-05-2021 10:32-0400 Diastolic blood pressure 71 mm[Hg] Dr. Shekhar Arana Work Phone: [facility] Work Phone: 11-05-2021 10:32-0400 Heart rate 90 /min Dr. Shekhar Arana Work Phone: [facility] Work Phone: 11-05-2021 10:32-0400 Respiratory rate 15 /min Dr. Shekhar Arana Work Phone: [facility] Work Phone: 11-05-2021 10:32-0400 SaO2% (BldA) [Mass fraction] 90 % Dr. Shekhar Arana Work Phone: [facility] Work Phone: 11-05-2021 10:32-0400 Systolic blood pressure 108 mm[Hg] Dr. Shekhar Arana Work Phone: [facility] Work Phone: 10-19-2021 15:18-0400 Body temperature 97.8 [degF] Dr. Shekhar Arana Work Phone: [facility] Work Phone: 10-19-2021 15:18-0400 Diastolic blood pressure 70 mm[Hg] Dr. Shekhar Arana Work Phone: [facility] Work Phone: 10-19-2021 15:18-0400 Heart rate 96 /min Dr. Shekhar Arana Work Phone: [facility] Work Phone: 10-19-2021 15:18-0400 Respiratory rate 15 /min Dr. Shekhar Arana Work Phone: [facility] Work Phone: 10-19-2021 15:18-0400 SaO2% (BldA) [Mass fraction] 97 % Dr. Shekhar Arana Work Phone: [facility] Work Phone: 10-19-2021 15:18-0400 Systolic blood pressure 118 mm[Hg] Dr. Shekhar Arana Work Phone: [facility] Work Phone: 10-15-2021 12:55-0400 Body mass index (BMI) [Ratio] 26.9 kg/m2 Dr. Shekhar Arana Work Phone: [facility] Work Phone: 10-15-2021 12:55-0400 Body temperature 98.7 [degF] Dr. Shekhar Arana Work Phone: [facility] Work Phone: 10-15-2021 12:55-0400 Body weight 86.[address] Shekhar Arana Work Phone: [facility] Work Phone: 10-15-2021 12:55-0400 Diastolic blood pressure 74 mm[Hg] Dr. Shekhar Arana Work Phone: [facility] Work Phone: 10-15-2021 12:55-0400 Heart rate 85 /min Dr. Shekhar Arana Work Phone: [facility] Work Phone: 10-15-2021 12:55-0400 Respiratory rate 15 /min Dr. Shekhar Arana Work Phone: [facility] Work Phone: 10-15-2021 12:55-0400 SaO2% (BldA) [Mass fraction] 98 % Dr. Shekhar Arana Work Phone: [facility] Work Phone: 10-15-2021 12:55-0400 Systolic blood pressure 122 mm[Hg] Dr. Shekhar Arana Work Phone: [facility] Work Phone: 07-21-2021 10:42-0400 Body height 179.[address] Shekhar Arana Work Phone: [facility] Work Phone: 07-21-2021 10:42-0400 Body mass index (BMI) [Ratio] 27.1 kg/m2 Dr. Shekhar Arana Work Phone: [facility] Work Phone: 07-21-2021 10:42-0400 Body temperature 98 [degF] Dr. Shekhar Arana Work Phone: [facility] Work Phone: 07-21-2021 10:42-0400 Body weight 87.[address] Shekhar Arana Work Phone: [facility] Work Phone: 07-21-2021 10:42-0400 Diastolic blood pressure 74 mm[Hg] Dr. Shekhar Arana Work Phone: [facility] Work Phone: 07-21-2021 10:42-0400 Heart rate 82 /min Dr. Shekhar Arana Work Phone: [facility] Work Phone: 07-21-2021 10:42-0400 Respiratory rate 16 /min Dr. Shekhar Arana Work Phone: [facility] Work Phone: 07-21-2021 10:42-0400 SaO2% (BldA) [Mass fraction] 96 % Dr. Shekhar Arana Work Phone: [facility] Work Phone: 07-21-2021 10:42-0400 Systolic blood pressure 128 mm[Hg] Dr. Shekhar Arana Work Phone: [facility] Work Phone: 06-26-2021 14:59-0400 Body mass index (BMI) [Ratio] 27.9 kg/m2 Dr. Shekhar Arana Work Phone: [facility] Work Phone: 06-26-2021 14:59-0400 Body weight 88.[address] Shekhar Arana Work Phone: [facility] Work Phone: 06-26-2021 14:59-0400 Diastolic blood pressure 72 mm[Hg] Dr. Shekhar Arana Work Phone: [facility] Work Phone: 06-26-2021 14:59-0400 Heart rate 81 /min Dr. Shekhar Arana Work Phone: [facility] Work Phone: 06-26-2021 14:59-0400 SaO2% (BldA) [Mass fraction] 94 % Dr. Shekhar Arana Work Phone: [facility] Work Phone: 06-26-2021 14:59-0400 Systolic blood pressure 130 mm[Hg] Dr. Shekhar Arana Work Phone: [facility] Work Phone: 06-26-2021 14:59-0400 Body height 177.[address] Shekhar Arana Work Phone: [facility] Work Phone: 06-26-2021 14:59-0400 Body mass index (BMI) [Ratio] 27.9 kg/m2 Dr. Shekhar Arana Work Phone: [facility] Work Phone: 06-26-2021 14:59-0400 Body weight 88.[address] Shekhar Arana Work Phone: [facility] Work Phone: 06-26-2021 14:59-0400 Diastolic blood pressure 72 mm[Hg] Dr. Shekhar Arana Work Phone: [facility] Work Phone: 06-26-2021 14:59-0400 Heart rate 81 /min Dr. Shekhar Arana Work Phone: [facility] Work Phone: 06-26-2021 14:59-0400 SaO2% (BldA) [Mass fraction] 94 % Dr. Shekhar Arana Work Phone: [facility] Work Phone: 06-26-2021 14:59-0400 Systolic blood pressure 130 mm[Hg] Dr. Shekhar Arana Work Phone: [facility] Work Phone: 05-28-2021 10:41-0400 Body mass index (BMI) [Ratio] 27.9 kg/m2 Dr. Shekhar Arana Work Phone: [facility] Work Phone: 05-28-2021 10:41-0400 Body weight 88.[address] Shekhar Arana Work Phone: [facility] Work Phone: 05-28-2021 10:41-0400 Diastolic blood pressure 71 mm[Hg] Dr. Shekhar Arana Work Phone: [facility] Work Phone: 05-28-2021 10:41-0400 Heart rate 89 /min Dr. Shekhar Arana Work Phone: [facility] Work Phone: 05-28-2021 10:41-0400 Systolic blood pressure 124 mm[Hg] Dr. Shekhar Arana Work Phone: [facility] Work Phone: 05-07-2021 12:37-0400 Body temperature 97.9 [degF] Dr. Shekhar Arana Work Phone: [facility] Work Phone: 05-07-2021 12:37-0400 Diastolic blood pressure 79 mm[Hg] Dr. Shekhar Arana Work Phone: [facility] Work Phone: 05-07-2021 12:37-0400 Heart rate 77 /min Dr. Shekhar Arana Work Phone: [facility] Work Phone: 05-07-2021 12:37-0400 Respiratory rate 16 /min Dr. Shekhar Arana Work Phone: [facility] Work Phone: 05-07-2021 12:37-0400 SaO2% (BldA) [Mass fraction] 96 % Dr. Shekhar Arana Work Phone: [facility] Work Phone: 05-07-2021 12:37-0400 Systolic blood pressure 116 mm[Hg] Dr. Shekhar Arana Work Phone: [facility] Work Phone: 05-07-2021 11:20-0400 Body mass index (BMI) [Ratio] 27.1 kg/m2 Dr. Shekhar Arana Work Phone: [facility] Work Phone: 05-07-2021 11:20-0400 Body weight [address] Shekhar Arana Work Phone: [facility] Work Phone: 12-05-2016 07:49-0400 BMI (Body Mass Index) 28.17 kg/m2 Isaias Crowder [facility] Work Phone: 12-05-2016 07:49-0400 BP Diastolic 68 mm[Hg] [facility] Work Phone: 12-05-2016 07:49-0400 BP Systolic 92 mm[Hg] [facility] Work Phone: 12-05-2016 07:49-0400 Height 180.34 cm [facility] Work Phone: 12-05-2016 07:49-0400 Pulse (Heart Rate) 68 /min [facility] Work Phone: 12-05-2016 07:49-0400 Respiratory Rate 18 /min [facility] Work Phone: 12-05-2016 07:49-0400 Weight 91.63 kg [facility] Work Phone: 11-27-2015 15:02-0400 BSA (Body Surface Area) 2.12 m2 [facility] Work Phone: 11-27-2015 15:02-0400 Pulse Oximetry 97 % [facility] Work Phone: 07-11-2015 10:56-0400 Heart rate 47 /min [facility] Work Phone: Encounters Encounter Date Encounter Type Care Provider Facility Start: 12-17-2024 ambulatory Shreyas [facility] Facility: [facility] Start: 12-16-2024 Encounter for other preprocedural examination [facility] Start: 12-14-2024 End: 12-14-2024 ambulatory [facility] Facility:[facility] Start: 12-09-2024 Encounter for preprocedural laboratory examination [facility] Start: 12-09-2024 ambulatory [facility] Facility: [facility] Start: 11-23-2024 End: 11-23-2024 ambulatory [facility] Facility:[facility] Start: 11-17-2024 End: 11-17-2024 Patient encounter procedure Jeremias KRAUSE -[facility] Work Phone: Start: 11-17-2024 End: 11-17-[address] Shreays Amezquita DO Work Phone: -[facility] Start: 11-08-2024 End: 11-08-2024 Patient encounter procedure Robert Singh MD Work Phone: [facility] Otolaryngology (ENT) Comment on above: Parotid mass (Primar y Dx); Body mass index (BMI) 21.0-21.9, adult Start: 11-08-2024 End: 11-08-2024 ambulatory ROBERT SINGH Facility:[facility] Start: 11-04-2024 End: 11-04-[address] Shreyas Amezquita DO Work Phone: -Laboratory Start: 11-04-2024 End: 11-04-[address] 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) Start: 10-26-2024 End: 10-26-2024 Evaluation and management of inpatient ROBERT SINGH Facility:[facility] Start: 10-26-2024 End: 10-26-2024 Subsequent hospital visit by physician Robert Singh MD Work Phone: [facility] Main OR Comment on above: Parotid mass (Primar y Dx); Post-op pain Start: 10-15-2024 End: 10-15-2024 Telephone encounter Berry Neumann RN [facility] Pre-Admission Testing Start: 10-13-2024 End: 10-13-2024 Telephone encounter Berry Neumann RN [facility] Pre-Admission Testing Start: 10-12-2024 End: 10-12-2024 Preoperative state Chance Grande APRN-[employer] Work Phone: [facility] Work Phone: Start: 10-12-2024 End: 10-12-2024 Telephone encounter Chance Grande APRN-[employer] Work Phone: [facility] Pre-Admission Testing Comment on above: Arrived Start: 10-12-2024 Encounter for other preprocedural examination CHANCE GRANDE [facility] Start: 10-12-2024 End: 10-12-2024 ambulatory Injection Sherwin [facility] Work Phone: Hematology/Oncology Comment on above: 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); Myelodysplastic disease (HCC); 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) Start: 10-11-2024 End: 10-11-2024 Telephone encounter Robert Singh MD Work Phone: [facility] Otolaryngology (ENT) Comment on above: Canceled Surgery Start: 09-23-2024 End: 09-23-2024 Letter encounter Robert Singh MD Work Phone: [facility] Otolaryngology (ENT) Start: 09-21-2024 End: 09-21-2024 Admission to same day surgery center Robert Singh MD Work Phone: [facility] Otolaryngology (ENT) Start: 09-21-2024 End: 09-21-2024 Telephone encounter Robert Singh MD Work Phone: [facility] Otolaryngology (ENT) Start: 09-21-2024 End: 09-21-2024 Patient encounter procedure Tanna Shen Work Phone: Hematology/Oncology Start: 09-21-2024 End: 09-21-2024 ambulatory Injection Sherwin [facility] Work Phone: Hematology/Oncology Comment on above: 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); Myelodysplastic disease (HCC); 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); MDS (myelodysplastic syndrome) (HCC); Thrombocytopenia Start: 09-17-2024 End: 09-17-2024 Office outpatient new 30 minutes Robert Singh MD Work Phone: [facility] Otolaryngology (ENT) Comment on above: Parotid mass (Primar y Dx) Start: 09-17-2024 End: 09-17-2024 ambulatory UNKNOWN PROVIDER Facility:[facility] Start: 09-14-2024 End: 09-14-2024 ambulatory ROBERT SINGH Facility:[facility] Start: 09-14-2024 End: 09-14-2024 Subsequent hospital visit by physician Willard [facility] Radiology Comment on above: Parotid mass Start: 09-13-2024 End: 09-13-2024 ambulatory ROBERT SINGH Facility:[facility] Start: 08-31-2024 End: 08-31-2024 ambulatory Injection Sherwin [facility] Work Phone: Hematology/Oncology Comment on above: Refractory anemia du e to myelodysplastic syndrome (HCC) (Primary Dx) Start: 08-24-2024 End: 08-30-2024 Telephone encounter Perry Stafford MD Work Phone: [facility] Otolaryngology (ENT) Comment on above: [place] [facility] Start: 08-11-2024 End: 08-11-2024 ambulatory Injection [facility] Work Phone: Hematology/Oncology Comment on above: 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 Shreyas Amezquita DO Work Phone: [facility] Work Phone: Start: 07-22-2024 End: 07-22-[address] 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 Facility:[facility] Start: 06-17-2024 End: 06-17-2024 Patient encounter procedure Dianne KRAUSE -[facility] Work Phone: Start: 06-17-2024 End: 06-17-2024 ambulatory Shreyas [facility] Facility:[facility] Start: 06-15-2024 ambulatory [facility] Facility: [facility] Start: 06-15-2024 Non-patient / Non-visit Dr. Meagan MCKENZIE -[facility] Start: 06-15-2024 End: 06-15-[address] Vishal Monte MD -Cardiovascular Services Work Phone: Start: 06-15-2024 End: 06-15-2024 ambulatory Shreyas [facility] Facility:[facility] Start: 06-14-2024 End: 06-14-[address] 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 Vishal Monte MD -[facility] Work Phone: Start: 05-18-2024 End: 05-18-2024 ambulatory Shreyas [facility] Facility: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 Shreyas Amezquita DO Work Phone: [facility] Work Phone: Start: 04-19-2024 End: 04-19-[address] Shreyas Amezquita DO -Ultrasound, 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) Start: 04-19-2024 End: 04-19-2024 ambulatory Shreyas Amezquita Facility:[facility] Start: 04-05-2024 End: 04-05-2024 ambulatory Injection Sherwin [facility] Work Phone: Hematology/Oncology Comment on above: MDS (myelodysplastic syndrome) (HCC) (Primary Dx) Start: 03-22-2024 End: 03-22-2024 ambulatory Injection Sherwin [facility] Work Phone: Hematology/Oncology Comment on above: MDS (myelodysplastic syndrome) (HCC) (Primary Dx); 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) Start: 03-09-2024 End: 03-09-2024 ambulatory Injection Sherwin [facility] Work Phone: Hematology/Oncology Comment on above: MDS (myelodysplastic syndrome) (HCC) (Primary Dx); 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) Start: 02-23-2024 End: 02-23-2024 ambulatory Injection Sherwin [facility] Work Phone: Hematology/Oncology Comment on above: 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) (HCC) (Primary Dx) MDS (myelodysplastic syndrome) (HCC) (Primary Dx); Thrombocytopenia (HCC) Start: 02-23-2024 End: 02-23-2024 Patient encounter procedure Tanna Shen Work Phone: Hematology/Oncology Start: 02-23-2024 End: 02-23-2024 ambulatory SHREYAS AMEZQUITA Facility:[facility] Start: 02-09-2024 End: 02-09-2024 ambulatory Injection Sherwin [facility] Work Phone: Hematology/Oncology Comment on above: 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) (HCC) (Primary Dx); Myelodysplastic disease (HCC); 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) Start: 01-26-2024 End: 01-26-2024 ambulatory Injection Sherwin [facility] Work Phone: Hematology/Oncology Comment on above: 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) (HCC) (Primary Dx); Myelodysplastic disease (HCC); 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) Start: 01-12-2024 End: 01-12-2024 ambulatory Injection Sherwin [facility] Work Phone: Hematology/Oncology Comment on above: 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) (HCC) (Primary Dx); Myelodysplastic disease (HCC); 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) Start: 12-01-2023 End: 12-01-2023 Telephone encounter Acosta Cruz DO Work Phone: Hematology/Oncology Comment on above: Results Start: 12-01-2023 End: 12-01-2023 ambulatory Injection Sherwin [facility] [employer] Work Phone: Hematology/Oncology Comment on above: 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) (HCC) (Primary Dx); Myelodysplastic disease (HCC); 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) Start: 11-20-2023 End: 11-20-2023 Telephone encounter Jolie SANTOS Hematology/Oncology Comment on above: Social Work Services Start: 11-17-2023 End: 11-17-2023 ambulatory Acosta Cruz DO Work Phone: Hematology/Oncology Comment on above: MDS (myelodysplastic syndrome), low grade (HCC) (Primary Dx); 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); Thrombocytopenia (HCC) 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) (HCC) (Primary Dx); Myelodysplastic disease (HCC); 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) Start: 11-17-2023 End: 11-17-2023 Patient encounter procedure Acosta Solo Nancy DO Work Phone: Hematology/Oncology Start: 11-03-2023 End: 11-03-2023 ambulatory Injection Sherwin [facility] [employer] Work Phone: Hematology/Oncology Comment on above: 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) (HCC) (Primary Dx); Myelodysplastic disease (HCC); 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) Start: 10-20-2023 End: 10-20-2023 ambulatory Injection Sherwin [facility] [employer] Work Phone: Hematology/Oncology Comment on above: 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) (HCC) (Primary Dx); Myelodysplastic disease (HCC); 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) Start: 10-06-2023 End: 10-06-2023 ambulatory Injection Sherwin [facility] [employer] Work Phone: Hematology/Oncology Comment on above: 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) (HCC) (Primary Dx) Start: 09-22-2023 End: 09-22-2023 ambulatory Injection Sherwin [facility] Work Phone: Hematology/Oncology Comment on above: 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) (HCC) (Primary Dx) Start: 09-10-2023 End: 09-10-2023 ambulatory Injection Sherwin [facility] Work Phone: Hematology/Oncology Comment on above: 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) (HCC) (Primary Dx); MDS (myelodysplastic syndrome), low grade (HCC) Start: 08-25-2023 End: 08-25-2023 ambulatory Injection Sherwin [facility] Work Phone: Hematology/Oncology Comment on above: 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) (HCC) (Primary Dx) Start: 08-23-2023 End: 08-23-2023 Telephone encounter Karen Negro RN [facility] Clinical Communication Start: 08-11-2023 End: 08-11-2023 ambulatory Injection Sherwin [facility] Work Phone: Hematology/Oncology Comment on above: 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) (HCC) (Primary Dx); MDS (myelodysplastic syndrome), low grade (HCC) MDS (myelodysplastic syndrome), low grade (HCC) (Primary Dx); Anemia, unspecified type Start: 08-11-2023 End: 08-11-2023 Patient encounter andie Cruz DO Work Phone: Hematology/Oncology Start: 07-28-2023 End: 07-28-2023 ambulatory Injection Sherwin [facility] Work Phone: Hematology/Oncology Comment on above: 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) (HCC) (Primary Dx) Start: 07-17-2023 Telephone encounter Jolie SANTOS Hematology/Oncology Comment on above: Social Work Services Start: 07-15-2023 End: 07-15-2023 ambulatory Injection Sherwin [facility] Work Phone: Hematology/Oncology Comment on above: 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) (HCC) (Primary Dx); MDS (myelodysplastic syndrome), low grade (HCC) Start: 07-14-2023 Orders Only Acosta Hart Work Phone: Hematology/Oncology Comment on above: MDS (myelodysplastic syndrome), low grade (HCC) (Primary Dx); 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) Start: 07-11-2023 Telephone encounter Financial Navigator Sherwin Work Phone: Financial Services Comment on above: Benefits Investigati on Start: 07-09-2023 Telephone encounter Deidre Royal RN He matology/Oncology Start: 07-07-2023 End: 07-07-2023 ambulatory Acosta Cruz DO Work Phone: Hematology/Oncology Comment on above: MDS (myelodysplastic syndrome), low grade (HCC) (Primary Dx); 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) Start: 07-07-2023 End: 07-07-2023 Patient encounter procedure Acosta Cruz DO Work Phone: Hematology/Oncology Start: 06-07-2023 End: 06-08-2023 ambulatory ACOSTA CRUZ Facility:[facility] Start: 06-06-2023 End: 06-06-2023 ambulatory Acosta Cruz DO Work Phone: Hematology/Oncology Comment on above: MDS (myelodysplastic syndrome) (HCC) (Primary Dx); Anemia, unspecified type; Thrombocytopenia (HCC); Pancytopenia (HCC) Start: 06-06-2023 End: 06-06-2023 Patient encounter procedure Acosta Cruz DO Work Phone: [facility] Start: 05-12-2023 End: 05-12-2023 Visit (SP) Office Chioma Arredondo APRN.CNP Work Phone: Hematology/Oncology Comment on above: Anemia, unspecified type; Thrombocytopenia (HCC); Pancytopenia (HCC); Platelet disorder (HCC) Start: 05-07-2023 Telephone encounter Acosta quinones DO Work Phone: Hematology/Oncology Comment on above: Appointment Start: 04-25-2023 End: 04-25-2023 ambulatory Tanna Shen Work Phone: Hematology/Oncology Comment on above: Anemia, unspecified type (Primary Dx) Start: 04-25-2023 End: 04-25-2023 Patient encounter procedure Tanna Shen Work Phone: [facility] Start: 04-08-2023 End: 04-08-[address] Shreyas Amezquita Work Phone: [facility] Work Phone: Start: 04-07-2023 End: 04-07-[address] Shreyas Amezquita Work Phone: [facility] Work Phone: Start: 04-07-2023 End: 04-07-[address] Shreyas Amezquita Work Phone: [facility]-Laboratory, Specimen Work Phone: Start: 04-03-[address] Shreyas Amezquita Work Phone: [facility] Oncology Start: 04-03-2023 End: 04-03-[address] Shreyas Amezquita Work Phone: [facility] Work Phone: Start: 03-11-2023 End: 03-11-2023 Emergency department patient visit Dr. Shreyas Amezquita Work Phone: [facility]-Emergency Department Work Phone: Start: 03-06-[address] Shreyas Amezquita Work Phone: [facility] Oncology Start: 03-03-2023 End: 03-03-[address] Shreyas Amezquita Work Phone: [facility] Work Phone: Start: 03-03-2023 End: 03-03-[address] Shreyas Amezquita Work Phone: [facility] Work Phone: Start: 02-20-2023 End: 02-20-[address] Shreyas Amezquita Work Phone: [facility] Work Phone: Start: 02-11-2023 End: 02-11-[address] Shreyas Amezquita Work Phone: [facility] Work Phone: Start: 01-22-2023 End: 01-22-[address] Shreyas Amezquita Work Phone: [facility] Work Phone: Start: 12-31-2022 Telephone encounter Nat Hodge RN [facility] Clinical Communication Start: 12-11-2022 End: 12-11-[address] Shreyas Amezquita Work Phone: [facility] Work Phone: Start: 10-21-2022 End: 10-21-[address] Shreyas Amezquita Work Phone: [facility] Work Phone: Start: 10-21-2022 End: 10-21-[address] Shreyas Amezquita Work Phone: [facility]-Laboratory Work Phone: Start: 10-07-2022 End: 10-07-[address] Shreyas Amezquita Work Phone: [facility]-Pulmonary Medicine [facility] Work Phone: Start: 09-23-2022 End: 09-23-[address] Shreyas Amezquita Work Phone: [facility] Work Phone: Start: 09-23-2022 End: 09-23-[address] [facility] Start: 09-03-2022 Non-patient / Non-visit Dr. Noel Amezquita Work Phone: [facility] Start: 09-03-2022 End: 09-03-[address] Shreyas Amezquita Work Phone: [facility] Work Phone: Start: 09-03-2022 End: 09-03-[address] [facility]qu[facility] Start: 08-29-2022 End: 08-29-[address] [facility]qu[facility] Work Phone: Start: 08-12-2022 End: 08-12-[address] Shreyas Amezquita Work Phone: [facility] Radiology Start: 07-08-2022 End: 07-08-[address] Shreyas Amezquita Work Phone: [facility] [place] Start: 06-08-2022 End: 06-08-[address] Shreyas Amezquita Work Phone: [facility] Work Phone: Start: 05-28-2022 End: 05-28-[address] Shreyas Amezquita Work Phone: [facility] Work Phone: Start: 03-22-2022 End: 03-22-[address] Shekhar Arana Work Phone: [facility] Work Phone: Start: 03-22-2022 End: 03-22-[address] Shekhar Arana Work Phone: [facility] Start: 03-16-2022 Non-patient / Non-visit Dr. Brent Arana Work Phone: [facility] Start: 03-15-2022 End: 03-15-[address] Shekhar Arana Work Phone: [facility] Work Phone: Start: 03-15-2022 End: 03-15-[address] Shekhar Arana Work Phone: [facility]-Pulmonary Services/Neurology Start: 02-21-2022 End: 02-21-[address] Shekhar Arana Work Phone: [facility] Work Phone: Start: 02-21-2022 End: 02-21-[address] Shekhar Arana Work Phone: [facility]-Pulmonary Medicine [facility] Start: 02-20-2022 End: 02-20-[address] Shekhar Arana Work Phone: [facility] Work Phone: Start: 02-20-2022 End: 02-20-[address] Shekhar Arana Work Phone: [facility] Start: 02-04-2022 End: 02-04-[address] Shekhar Arana Work Phone: [facility] Work Phone: Start: 02-04-2022 End: 02-04-[address] Shekhar Arana [facility] Start: 01-28-[address] Shekhar Arana Work Phone: [facility] Oncology Start: 01-28-2022 End: 01-28-[address] Shekhar Arana Work Phone: [facility] Cancer Care Start: 01-09-2022 End: 01-09-[address] Shekhar Arana Work Phone: [facility] Start: 01-02-2022 End: 01-02-[address] Shekhar Arana [facility] Start: 12-20-2021 End: 12-20-[address] Shekhar Arana Work Phone: [facility] Radiology Start: 12-05-2021 End: 12-05-[address] Shekhar Arana Work Phone: [facility] Start: 11-10-2021 End: 11-10-2021 Emergency department patient visit Dr. Shekhar Arana Work Phone: [facility]-Emergency Department Start: 11-08-2021 End: 11-08-[address] Shekhar Arana Work Phone: [facility] Start: 11-05-2021 End: 11-05-[address] Shekhar Arana Work Phone: [facility] Start: 10-19-2021 End: 10-19-[address] Shekhar Arana Work Phone: [facility] Start: 10-16-[address] Shekhar Arana Work Phone: [facility] Oncology Start: 10-15-2021 End: 10-15-[address] Shekhar Arana Work Phone: [facility] Start: 10-03-2021 End: 10-03-[address] Shekhar Arana Work Phone: [facility]-Laboratory Start: 09-27-2021 End: 09-27-[address] [facility] Start: 09-27-[address] Shekhar [facility] Start: 07-21-2021 End: 07-21-[address] Shekhar Arana Work Phone: [facility] Start: 06-26-2021 End: 06-26-[address] Shekhar Arana Work Phone: [facility] Gastroenterology Start: 06-25-2021 End: 06-25-[address] Shekhar Arana Work Phone: [facility]-Laboratory Start: 06-04-2021 End: 06-04-[address] Shekhar Aarna Work Phone: [facility] Gastroenterology Start: 05-28-2021 End: 05-28-[address] Shekhar Arana Work Phone: [facility] Gastroenterology Start: 05-07-2021 Non-patient / Non-visit Dr. Brent Arana Work Phone: [facility] Start: 05-07-2021 End: 05-07-2021 Admission to same day surgery center Dr. Shekhar Arana Work Phone: [facility]-Endoscopy Start: 04-04-2021 End: 04-04-[address] Shekhar Arana Work Phone: [facility] Procedures Date Procedure Procedure Detail Performing Clinician Start: 11-04-2024 Assay of prostate sp ecific antigen total Dr. Shreyas Amezquita DO Work Phone: Comment on above: This test was perfor med using the [employer] tPSA method. Measured values of a patient sample can vary depending on the testing procedure used. PSA values determined on patient samples by different testing procedures cannot be used interchangeably. If there is a change in PSA assays while monitoring therapy, sequential testing should be performed to confirm baseline values. Start: 09-14-2024 End: 09-14-2024 Radiology Comparison study - date and time Robert Singh MD Work Phone: Start: 07-22-2024 Prostate specific an tigen measurement Dr. Shreyas Amezquita DO Work Phone: Comment on above: This test was perfor med using the [employer] tPSA method. Measured values of a patient sample can vary depending on the testing procedure used. PSA values determined on patient samples by different testing procedures cannot be used interchangeably. If there is a change in PSA assays while monitoring therapy, sequential testing should be performed to confirm baseline values. Start: 04-19-2024 Ultrasonography of t hyroid and parathyroid Dr. Shreyas Amezquita DO Work Phone: Start: 05-12-2023 Diagnostic bone gi ow biopsies & aspirations Hartington Arredondo WATER SOFTENER INSTALLER.MOTOR EXPERT Work Phone: Start: 04-07-2023 Investigation of tra nsfusion reaction Dr. Shreyas Amezquita Work Phone: Start: 04-07-[address] Shreyas Amezquita Work Phone: Start: 03-11-2023 SARS-CoV-2, Influenz a & RSV (PCR) Dr. Shreyas Amezquita Work Phone: Start: 03-11-2023 Plain chest X-ray Dr. Hortensia Amezquita Work Phone: Start: 03-03-2023 Plain chest X-ray Dr. Hortensia Amezquita Work Phone: Start: 01-24-2023 Measurement of occul t blood in stool specimen using immunoassay Dr. Shreyas Amezquita Work Phone: Start: 09-03-2022 Cardiovascular stres s test using pharmacologic stress agent Dr. Shreyas Amezquita Work Phone: Start: 08-12-2022 Plain chest X-ray Dr. Hortensia Amezquita Work Phone: Start: 02-20-2022 CT of chest without contrast Dr. Shekhar Arana Work Phone: Start: 12-20-2021 Plain chest X-ray Dr. Carine Arana Work Phone: Start: 12-05-2021 Plain chest X-ray Dr. Carine Arana Work Phone: Start: 11-10-2021 CT angiography of ch est with contrast Dr. Shekhar Arana Work Phone: Start: 11-10-2021 Plain chest X-ray Dr. Carine Arana Work Phone: Start: 11-08-2021 Plain chest X-ray Dr. Carine Arana Work Phone: Start: 04-04-2021 Computed tomography of abdomen and pelvis with contrast Dr. Shekhar Arana Work Phone: Start: 12-05-2016 End: 12-05-2016 CARTOON ANIMATOR Jeremias Crump NP Work Phone: Start: 12-05-2016 End: 12-05-2016 Follow Up Appt 6 months Jeremias Crump NP Work Phone: Start: 12-05-2016 End: 12-05-2016 Dietary management education, guidance, and counseling Isaias Crowder Start: 05-27-2016 End: 05-27-2016 CARTOON ANIMATOR Yen Sumner PA-C Work Phone: Start: 05-27-2016 End: 05-27-2016 Follow Up Appt 6 months Yen pierre PA-C Work Phone: Start: 11-27-2015 End: 12-05-2015 Echocardiography Vishal Monte MD Start: 11-27-2015 End: 11-27-2015 Follow Up Appt 6 months Hortensia Mcbride Start: 11-27-2015 End: 11-27-2015 BULL Monte MD Start: 07-11-2015 End: 07-11-2015 Ecg routine ecg w/least 12 lds w/i&r Vishal Monte MD Start: 07-11-2015 End: 07-11-2015 Follow Up Appt 1 year Vishal Monte MD Start: 07-11-2015 End: 07-11-2015 BULL Monte MD Start: 07-11-2014 End: 07-11-2014 CARTOON ANIMATOR Yen Sumner PA-C Work Phone: Start: 07-11-2014 End: 07-12-2014 Documentation of current medications Yen Sumner PA-C Work Phone: Start: 07-11-2014 End: 07-11-2014 Follow Up Appt 1 year Yen shanks PA-C Work Phone: Start: 02-10-2014 End: 02-10-2014 Ecg routine ecg w/least 12 lds w/i&r Vishal Monte MD Start: 01-11-2014 End: 01-11-2014 Ecg routine ecg w/least 12 lds w/i&r Vishal Monte MD Start: 01-11-2014 End: 01-11-2014 Follow Up Appt 1 month Vishal Monte MD Start: 01-11-2014 End: 01-11-2014 Follow Up Appt 6 months Hortensia Mcbride Start: 01-11-2014 End: 01-11-2014 MMM Vishal Monte MD Start: 01-08-2013 End: 01-08-2013 CARTOON ANIMATOR Vishal Monte MD Start: 01-08-2013 End: 01-08-2013 Follow Up Appt 1 year Vishal Monte MD Start: 02-26-2012 End: 02-26-2012 Follow Up Appt 1 year Vishal Monte MD Start: 08-02-2011 End: 08-02-2011 Follow Up Appt 6 months Hortensia Mcbride Start: 05-29-2011 End: 02-26-2012 *BMP Vishal Monte MD Start: 05-29-2011 End: 06-05-2011 24 hour holter monitor Vishal Monte MD Start: 05-29-2011 End: 05-29-2011 Follow Up Appt 2 months Hortensia Mcbride Start: 05-29-2011 End: 02-26-2012 Magnesium [Mass/volume] in Serum or Plasma Vishal Monte MD Start: 05-29-2011 End: 02-26-2012 Thyrotropin [Units/volume] in Serum or Plasma Vishal Monte MD Start: 05-29-2011 End: 02-26-2012 Thyroxine (T4) [Mass/volume] in Serum or Plasma Vishal Monte MD Cholecystectomy DR MART MELARA MD Measurement of occul t blood in stool specimen using immunoassay Dr. Shekhar Arana Work Phone: Measurement of occul t blood in stool specimen using immunoassay Dr. Shekhar Arana Work Phone: Tonsillectomy and adenoidectomy DR RAMAKRISHNA MELARA MD Plan of Treatment Date Care Activity Detail Author Start: 01-25-2027 Diabetes Screening Diabetes Screening [facility] Start: 11-30-2026 Diabetes Screening Diabetes Screening [facility] Start: 04-24-2026 Diabetes Screening Diabetes Screening [facility] Start: 01-04-2025 End: 01-04-2025 ambulatory [facility] Comment on above: (SO)CBC* Q3WK ? ARANESP/LAB E ANGELES* Start: 12-22-2024 End: 12-22-2024 ambulatory 12/22/2024 10:10 AM EDT Visit (SP) Office Hematology/Oncology [address], [place] [id number] Acosta Cruz DO [address] [place] [address] 3MO OV/LAB EARLY/ARANESP TODAY* Hematology/Oncology Comment on above: 3MO OV/LAB EARLY/ARANESP TODAY* Start: 12-14-2024 End: 12-14-2024 ambulatory [facility] Comment on above: (SO)CBC* Q3WK ? ARANESP/LAB E ANGELES* Start: 11-24-2024 Influenza vaccination Influenza Vaccine (#1) [facility] Start: 11-23-2024 End: 11-23-2024 ambulatory [facility] Comment on above: (SO)CBC* Q3WK ? ARANESP/LAB E ANGELES* Start: 11-10-2024 End: 11-10-2024 Patient encounter procedure 11/10/2024 9:00 AM EDT Office Visit [facility] Otolaryngology (ENT) [address] [place] [address] Robert Singh MD [address] [place] [address] [facility] Otolaryngology (ENT) Start: 11-08-2024 End: 11-08-2024 Patient encounter procedure 11/08/2024 11:15 AM EDT Office Visit [facility] Otolaryngology (ENT) [address] [place] [id number] Robert Singh MD [address] [place] [phone] [facility] Start: 11-02-2024 End: 11-02-2024 ambulatory [facility] Laboratory Comment on above: (SO)CBC* Q3WK ? ARANESP/LAB E ANGELES* Start: 10-26-2024 End: 10-26-2024 Admission to same day surgery center 10/26/2024 10:37 AM EDT - 10/26/2024 1:28 PM EDT Surgery [facility] Main OR [address] [place] [id number] Robert Singh MD [address] [place] [id number] PAROTIDECTOMY [facility] Main OR Comment on above: PAROTIDECTOMY Start: 10-26-2024 Subsequent hospital visit by physician 10/26/2024 10:37 AM EDT Hospital Encounter [facility] Main OR [address] [place] [phone] Robert Singh MD [address] [place] [id number] [facility] Main OR Start: 10-26-2024 End: 10-26-2024 [facility] Start: 10-25-2024 COVID-19 Vaccine ( season) COVID-19 Vaccine ( season) [facility] Start: 10-25-2024 Influenza vaccination Influenza Vaccine (#1) [facility] Start: 10-12-2024 End: 10-12-2024 Telephone encounter 10/12/2024 5:00 PM EDT Telephone [facility] Pre-Admission Testing [address] [place] [address] [id number] Chance Grande, WATER SOFTENER INSTALLER-MOTOR EXPERT [address] [place] [address] [facility] Pre-Admission Testing Start: 10-12-2024 End: 10-12-2024 ambulatory [facility] Comment on above: (SO)CBC* Q3WK ? ARANESP/LAB E ANGELES* Start: 10-12-2024 End: 10-12-2024 Nursing evaluation of patient and report 10/12/2024 8:30 AM EDT Nurse Visit [facility] Pre-Admission Testing [address] [place] [id number] Kaitlin Riojas, JING [address] [place] [phone] [place] [address] Pre-Admission Testing Start: 09-21-2024 End: 09-21-2024 ambulatory [facility] Comment on above: (SO)CBC/CMP(S)/IRON STUDIES/B12/SERUM FO LATE/MMA* 3MO OV/LAB EARLY/NIKITA NESP TODAY* Q3WK ? ARANESP/LAB&O V EARLY* Start: 09-17-2024 End: 09-17-2024 Patient encounter procedure 09/17/2024 11:00 AM EDT Office Visit [facility] Otolaryngology (ENT) [address] [place] [id number] Robert Singh MD [address] [place] [id number] [facility] Otolaryngology (ENT) Start: 08-31-2024 End: 08-31-2024 ambulatory [facility] Comment on above: (SO)CBC/IRON STUDIES/FERRITIN* Q3WK ? ARANESP/LAB E ANGELES* (SO)CBC* Start: 08-24-2024 Welcome to Medicare Visit (G0402) Welcome to Medicare Visit (G0402) [facility] Start: 08-11-2024 End: 08-11-2024 ambulatory [facility] Laboratory Comment on above: (SO)CBC/IRON STUDIES/FERRITIN* 6WK OV/EARLY LAB/NIKITA NESP TODAY* Q3WK ? ARANESP/LAB E ANGELES* (SO)CBC/CMP/IRON PHILIP DIES/B12/SERUM FOLATE/MMA* Start: 07-26-2024 End: 07-26-2024 [facility] Laboratory Comment on above: (SO)CBC* Q2WK ? ARANESP/LAB E ANGELES/MDCR* Start: 07-21-2024 End: 07-21-2024 ambulatory [facility] Comment on above: (SO)CBC/IRON STUDIES/FERRITIN* Q3WK ? ARANESP/LAB E ANGELES/MDCR* Q3WK ? ARANESP/LAB E ANGELES* Start: 07-12-2024 End: 07-12-2024 [facility] Comment on above: (SO)CBC* Q2WK ? ARANESP/LAB E ANGELES/MDCR* Start: 06-29-2024 End: 06-29-2024 [facility] Laboratory Comment on above: (SO)CBC/IRON STUDIES/FERRITIN* 6WK OV/EARLY LAB/NIKITA NESP TODAY* Q3WK ? ARANESP/LAB E ANGELES/MDCR* Start: 06-28-2024 End: 06-28-2024 [facility] Comment on above: (SO)CBC* Q2WK ? ARANESP/LAB E ANGELES/MDCR* Start: 06-14-2024 End: 06-14-2024 [facility] Comment on above: (SO)CBC* Q2WK ? ARANESP/LAB E ANGELES/MDCR* Start: 06-07-2024 End: 06-07-2024 [facility] Comment on above: (SO)CBC/IRON STUDIES/FERRITIN* Q3WK ? ARANESP/LAB E ANGELES/MDCR* Start: 05-31-2024 End: 05-31-2024 [facility] Comment on above: (SO)CBC* Q2WK ? ARANESP/LAB E ANGELES/MDCR* Start: 05-24-2024 End: 05-24-2024 ambulatory 05/24/2024 9:50 AM EDT Visit (SP) Office Hematology/Oncology [address] [place] [address] Acosta Cruz DO [address] [place] [address] 3MO OV/ Q2WK CBC Hematology/Oncology Comment on above: 3MO OV/ Q2WK CBC Start: 05-17-2024 End: 05-17-2024 ambulatory [facility] Comment on above: (SO)CBC* Q2WK ? ARANESP/LAB E ANGELES/MDCR* 3MO OV/LAB&INJ EARLY * 3MO OV/LAB&INJ EARLY * MASCI Start: 05-03-2024 End: 05-03-2024 ambulatory [facility] Comment on above: (SO)CBC* Q2WK ? ARANESP/LAB E ANGELES/MDCR* Start: 04-19-2024 End: 04-19-2024 ambulatory [facility] Comment on above: (SO)CBC* Q2WK ? ARANESP/LAB E ANGELES/MDCR* Start: 04-05-2024 End: 04-05-2024 ambulatory [facility] Comment on above: (SO)CBC* Q2WK ? ARANESP/LAB E ANGELES/MDCR* Start: 03-22-2024 End: 03-22-2024 ambulatory [facility] Comment on above: (SO)CBC* Q2WK ? ARANESP/LAB E ANGELES/MDCR* Start: 03-09-2024 End: 03-09-2024 ambulatory [facility] Comment on above: (SO)CBC* Q2WK ? ARANESP/LAB E ANGELES/MDCR* Start: 02-25-2024 Advance Directive Discussion Advance Directive Discussion [facility] Start: 02-23-2024 End: 02-23-2024 ambulatory [facility] Comment on above: (SO)CBC* Q2WK ? ARANESP/LAB E ANGELES/MDCR* 4 MO OV/LAB&INJ TODA Y* Start: 02-09-2024 End: 02-09-2024 ambulatory [facility] Comment on above: (SO)CBC* Q2WK ? ARANESP/LAB E ANGEELS/MDCR* Start: 01-26-2024 End: 01-26-2024 ambulatory 01/26/2024 10:45 AM EST [facility] Hematology/Oncology [address] [place] [address] Wstr, Injection Sherwin [facility] [address] [place] [address] Q2WK ? ARANESP/LAB EARLY/MDCR* 3MO OV DUE DEC Hematology/Oncology Comment on above: Q2WK ? ARANESP/LAB EARLY/MDCR* 3MO OV DU E DEC Start: 01-26-2024 End: 01-26-2024 ambulatory [facility] Comment on above: (SO)CBCCMP/MG/PHOS/IRON* 3MO OV/LAB&INJ TODAY * Q2WK ? ARANESP/LAB E ANGELES/MDCR* 3MO OV DUE DEC Start: 01-12-2024 End: 01-12-2024 ambulatory [facility] Comment on above: (SO)CBC* Q2WK ? ARANESP/LAB E ANGELES/MDCR* Q2WK ? ARANESP/LAB E ANGELES/MDCR* 3MO OV DUE DEC Start: 12-29-2023 End: 12-29-2023 ambulatory [facility] Comment on above: (SO)CBC* Q2WK ? ARANESP/LAB E ANGELES/MDCR* Start: 12-15-2023 End: 12-15-2023 ambulatory [facility] Comment on above: (SO)CBC* Q2WK ? ARANESP/LAB E ANGELES/MDCR* Start: 12-01-2023 End: 12-01-2023 ambulatory [facility] Comment on above: (SO)CBC* Q2WK ? ARANESP/LAB E ANGELES/MDCR* (SO)CBCCMP/MG/PHOS/I CAROLE* Start: 11-17-2023 End: 11-17-2023 ambulatory [facility] Comment on above: (SO)CBC* 3 MO OV/LAB EARLY/IN J TODAY* Q2WK ? ARANESP/LAB&O V TODAY/MDCR* 3 MO OV W/ MASCI DUE JAN Start: 11-03-2023 End: 11-03-2023 ambulatory [facility] Comment on above: (SO)CBC* Q2WK ? ARANESP/LAB E ANGELES/MDCR* 3 MO OV W/ MASCI DUE Oct Start: 10-26-2023 Covid-19 Vaccine ( season) Covid-19 Vaccine ( season) [facility] Start: 10-26-2023 Covid-19 Vaccine ( season) Covid-19 Vaccine ( season) [facility] Start: 10-26-2023 Influenza vaccination Influenza Vaccine (#1) [facility] Start: 10-20-2023 End: 10-20-2023 [facility] Comment on above: (SO)CBC* Q2WK ? ARANESP/LAB E ANGELES/MDCR* 3 MO OV W/ MASCI DUE Oct Start: 10-06-2023 End: 10-06-2023 [facility] Comment on above: (SO)CBC* Q2WK ? ARANESP/LAB E ANGELES/MDCR* 3 MO OV W/ MASCI DUE MID OCT Start: 09-22-2023 End: 09-22-2023 ambulatory [facility] Comment on above: CBC Q2WK ? ARANESP/LAB E ANGELES/MDCR* (SO)CBC* Q2WK ? ARANESP/LAB E ANGELES/MDCR* 3 MO OV W/ MASCI DUE Oct Start: 09-09-2023 End: 09-09-2023 [facility] Comment on above: CBC Q2WK ? ARANESP/LAB&O V EARLY/MDCR* (SO)CBC* Start: 08-25-2023 End: 08-25-2023 ambulatory [facility] Comment on above: CBC Q2WK ? ARANESP / MDC R* Start: 08-11-2023 End: 08-11-2023 ambulatory [facility] Comment on above: CBC 1 MO OV/LAB EARLY/IN J TODAY* Q2WK ? ARANESP / MDC R* Start: 07-28-2023 End: 07-28-2023 ambulatory [facility] Comment on above: CBC Q2WK ? ARANESP / MDC R* Start: 07-15-2023 End: 07-15-2023 ambulatory [facility] Comment on above: CBC Q2WK ? ARANESP / MDC R* Start: 07-07-2023 End: 10-06-2023 Erythropoietin (EPO) [Units/volume] in Serum or Plasma [facility] Comment on above: Expected: 07/07/2023, Expires: Start: 07-07-2023 End: 10-06-2023 Ferritin [Mass/volume] in Serum or Plasma [facility] Comment on above: Expected: 07/07/2023, Expires: 4 Start: 07-07-2023 End: 10-06-2023 Iron and Iron binding capacity panel - Serum or Plasma [facility] Work Phone: Comment on above: Expected: 07/07/2023, Expires: 4 Start: 06-06-2023 End: 09-05-2023 C reactive protein [Mass/volume] in Serum or Plasma C-REACTIVE PROTEIN Lab Routine Pancytopenia (HCC) MDS (myelodysplastic syndrome) (HCC) Expected: 06/06/2023, Expires: 09/05/2023 [facility] Work Phone: Comment on above: Expected: 06/06/2023, Expires: 4 Start: 06-06-2023 End: 09-05-2023 CRYOGLOBULIN, QUAL, REFLEX TO DENISE AND IGG,A,M CRYOGLOBULIN, QUAL, REFLEX TO DENISE AND IGG,A,M Lab Routine Pancytopenia (HCC) MDS (myelodysplastic syndrome) (HCC) Expected: 06/06/2023, Expires: 09/05/2023 [facility] Work Phone: Comment on above: Expected: 06/06/2023, Expires: Start: 06-06-2023 End: 09-05-2023 Erythrocyte sedimentation rate SEDIMENTATION RATE, WESTERGREN Lab Routine Pancytopenia (HCC) MDS (myelodysplastic syndrome) (HCC) Expected: 06/06/2023, Expires: 09/05/2023 [facility] Work Phone: Comment on above: Expected: 06/06/2023, Expires: Start: 06-06-2023 End: 09-05-2023 Erythropoietin (EPO) [Units/volume] in Serum or Plasma ERYTHROPOIETIN/EPO Lab Routine Pancytopenia (HCC) Expected: 06/06/2023, Expires: 09/05/2023 [facility] Work Phone: Comment on above: Expected: 06/06/2023, Expires: Start: 06-06-2023 End: 09-05-2023 Methylmalonate [Moles/volume] in Serum or Plasma METHYLMALONIC ACID Lab Routine Pancytopenia (HCC) Expected: 06/06/2023, Expires: 09/05/2023 [facility] Work Phone: Comment on above: Expected: 06/06/2023, Expires: 4 Start: 05-12-2023 End: 08-11-2023 CBC W Auto Differential panel - Blood CBC + DIFF Lab STAT Anemia, unspecified type Expected: 05/12/2023, Expires: 08/11/2023 [facility] Work Phone: Comment on above: Expected: 05/12/2023, Expires: 4 Start: 04-25-2023 End: 07-25-2023 PROTEIN ELECTROPHORESIS SERUM W/INTERP [facility] Work Phone: Comment on above: Expected: 04/25/2023, Expires: Start: 03-11-2023 [facility] Start: 03-11-2023 [facility] Start: 02-24-2023 Advance Directive Discussion Advance Directive Discussion [facility] Start: 02-24-2023 Behavioral Health Screening Behavioral Health Screening [facility] Start: 02-24-2023 Depression Assessment Depression Assessment [facility] Start: 10-25-2022 Covid-19 Vaccine () Covid-19 Vaccine () [facility] Start: 09-23-2022 IgE [Units/volume] in Serum or Plasma [facility] Start: 09-23-2022 [facility] Start: 05-28-2022 Plain chest X-ray Chest PA and Lateral [facility] Start: 05-28-2022 XR Chest PA and Lateral [facility] Start: 11-10-2021 Incentive spirometry [facility] Work Phone: Start: 11-10-2021 [facility] Work Phone: Start: 11-10-2021 [facility] Work Phone: Start: 05-07-2021 Egd transoral biopsy single/multiple EGD BIOPSY SINGLE/MULTIPLE [facility] Work Phone: Start: 05-07-2021 Egd transoral control bleeding any method EGD CONTROL BLEEDING ANY [facility] Work Phone: Start: 11-01-2019 RSV vaccine (adult) (1 - 1-dose 75+ series) RSV vaccine (adult) (1 - 1-dose 75+ series) [facility] Start: 04-02-2019 Shingrix Vaccine (3 of 3) Shingrix Vaccine (3 of 3) [facility] Start: 06-24-2017 Annual wellness visit Annual Wellness Visit ([id number]) [facility] Start: 06-05-2017 End: 06-05-2017 Appointment [facility] Work Phone: Start: 12-05-2016 End: 12-05-2016 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 [facility] Work Phone: Start: 12-05-2016 End: 12-05-2016 Follow Up Appt 6 months Follow Up Appt 6 months [facility] Work Phone: Start: 05-27-2016 End: 05-27-2016 [facility] Work Phone: Start: 05-27-2016 End: 05-27-2016 Follow Up Appt 6 months Follow Up Appt 6 months [facility] Work Phone: Start: 11-27-2015 End: 11-27-2015 Echocardiography Echocardiogram (complete) [facility] Work Phone: Start: 11-27-2015 End: 11-27-2015 Follow Up Appt 6 months Follow Up Appt 6 months [facility] Work Phone: Start: 11-27-2015 End: 11-27-2015 MMM MMM [facility] Work Phone: Start: 07-11-2015 End: 07-11-2015 Ecg routine ecg w/least 12 lds w/i&r EKG (In office) [facility] Work Phone: Start: 07-11-2015 End: 07-11-2015 Follow Up Appt 1 year Follow Up Appt 1 year [facility] Work Phone: Start: 07-11-2015 End: 07-11-2015 MMM MMM [facility] Work Phone: Start: 07-11-2014 End: 07-11-2014 [facility] Work Phone: Start: 07-11-2014 End: 07-11-2014 Follow Up Appt 1 year Follow Up Appt 1 year [facility] Work Phone: Start: 02-10-2014 End: 02-10-2014 Ecg routine ecg w/least 12 lds w/i&r EKG (In office) [facility] Work Phone: Start: 01-11-2014 End: 01-11-2014 Ecg routine ecg w/least 12 lds w/i&r EKG (In office) [facility] Work Phone: Start: 01-11-2014 End: 01-11-2014 Follow Up Appt 1 month Follow Up Appt 1 month [facility] Work Phone: Start: 01-11-2014 End: 01-11-2014 Follow Up Appt 6 months Follow Up Appt 6 months [facility] Work Phone: Start: 01-11-2014 End: 01-11-2014 MMM MMM [facility] Work Phone: Start: 01-08-2013 End: 01-08-2013 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 [facility] Work Phone: Start: 01-08-2013 End: 01-08-2013 Follow Up Appt 1 year Follow Up Appt 1 year [facility] Work Phone: Start: 02-26-2012 End: 02-26-2012 Follow Up Appt 1 year Follow Up Appt 1 year [facility] Work Phone: Start: 08-02-2011 End: 08-02-2011 Follow Up Appt 6 months Follow Up Appt 6 months [facility] Work Phone: Start: 05-29-2011 End: 02-26-2012 *BMP *BMP [facility] Work Phone: Start: 05-29-2011 End: 05-29-2011 24 hour holter monitor 24 hour holter monitor [facility] Work Phone: Start: 05-29-2011 End: 05-29-2011 Follow Up Appt 2 months Follow Up Appt 2 months [facility] Work Phone: Start: 05-29-2011 End: 02-26-2012 Magnesium mass conc *Magnesium [facility] Work Phone: Start: 05-29-2011 End: 02-26-2012 T4 mass conc *T4 (Total) [facility] Work Phone: Start: 05-29-2011 End: 02-26-2012 Thyrotropin Qn *TSH [facility] Work Phone: Start: 05-08-2011 Shingles (RZV) Vaccine (2 of 3) Shingles (RZV) Vaccine (2 of 3) [facility] Start: 03-27-2010 Medicare Annual Wellness Visit Medicare Annual Wellness Visit [facility] Start: 2004 Hepatitis B (HBV) Vaccine (optional start 60+ years) Hepatitis B (HBV) Vaccine (optional start 60+ years) [facility] Start: 10-23-2004 Urine microalbumin profile DTaP,Tdap,Td Vaccine (1 - Tdap) [facility] Start: 11-01-1963 Hepatitis A (HAV) Vaccine (optional start 19+ years) Hepatitis A (HAV) Vaccine (optional start 19+ years) [facility] Start: 1962 Annual PCP Team Chronic Disease Visit Annual PCP Team Chronic Disease Visit [facility] Start: 1962 Anxiety Screening Anxiety Screening [facility] Start: 1962 Depression Screening Depression Screening [facility] Start: 1962 Hepatitis C screening [facility] Start: 1962 Spirometry Spirometry [facility] Start: 1962 Tdap Booster Tdap Booster [facility] Alternaria alternata IgE Ab [Units/volume] in Serum [facility] Malawian house dust mite IgE Ab [Units/volume] in Serum [facility] Bacteria identified in Sputum by Culture [facility] Work Phone: Bacteria identified in Sputum by Culture [facility] Bermuda grass IgE Ab [Units/volume] in Serum [facility] BONE MARROW ANALYSIS BONE MARROW ANALYSIS Lab Routine Anemia, unspecified type Thrombocytopenia (HCC) 05/12/2023 12:47 PM EDT [facility] Work Phone: BONE MARROW CHROMOSO ME ANAL BONE MARROW CHROMOSOME ANAL Lab Routine Anemia, unspecified type Thrombocytopenia (HCC) 05/12/2023 12:47 PM EDT [facility] Work Phone: C reactive protein [Mass/volume] in Serum or Plasma [facility] C reactive protein [Mass/volume] in Serum or Plasma [facility] Cat dander IgE Ab [Units/volume] in Serum [facility] CBC W Auto Different ial panel - Blood [facility] Work Phone: CBC W Auto Different ial panel - Blood [facility] CBC W Auto Different ial panel - Blood [facility] CBC W Auto Different ial panel - Blood [facility] End: 07-13-2024 CBC W Auto Differential panel - Blood COMPLETE BLOOD COUNT AND DIFFERENTIAL Lab STAT MDS (myelodysplastic syndrome), low grade (HCC) 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) Every other week for 25 Occurrences starting 07/14/2023 until 07/13/2024 [facility] Work Phone: Comment on above: Every other week for 25 Occurrences star ting 07/14/2023 until 07/13/2024 Common Ragweed IgE A b [Units/volume] in Serum [facility] CT Chest WO contrast [facility] Work Phone: Cytology examination - general CYTOLOGY,FINE NEEDLE ASPIRATIONS Anatomic Pathology Routine Parotid mass Ordered: 09/17/2024 [employer] Work Phone: Comment on above: Ordered: 09/17/2024 DNA EXTRACTION BONE MARROW (BUFFY COAT) DNA EXTRACTION BONE MARROW (BUFFY COAT) Lab Routine Anemia, unspecified type Thrombocytopenia (HCC) 05/12/2023 12:47 PM EDT [facility] Work Phone: Dog epithelium IgE A b [Units/volume] in Serum [facility] Erythrocyte sedimentation rate [facility] Erythrocyte sedimentation rate [facility] house dust mite IgE Ab [Units/volume] in Serum [facility] Exc prtd verónica/prtd gl nd lat lobe w/o nrv dsj EXCISION, PAROTID TUMOR/PAROTID GLAND; LATERAL LOBE, W/O NERVE DISSECTION Procedures Routine Parotid mass Post-op pain Ordered: 10/26/2024 [employer] Comment on above: Ordered: 10/26/2024 Ferritin [Mass/volum e] in Serum or Plasma [facility] Work Phone: Ferritin [Mass/volum e] in Serum or Plasma [facility] Ferritin [Mass/volum e] in Serum or Plasma [facility] FLOW CYTOMETRY FOR LEUKEMIA/LYMPHOMA (FCLL) PERFORMABLE FLOW CYTOMETRY FOR LEUKEMIA/LYMPHOMA (FCLL) PERFORMABLE Lab Routine Anemia, unspecified type Thrombocytopenia (HCC) 05/12/2023 12:47 PM EDT [facility] Work Phone: IgE [Units/volume] i n Serum or Plasma [facility] Iron and Iron bindin g capacity panel - Serum or Plasma [facility] Work Phone: Iron and Iron bindin g capacity panel - Serum or Plasma [facility] Iron and Iron bindin g capacity panel - Serum or Plasma [facility] [place] blue grass IgE Ab [Units/volume] in Serum [facility] Lactate dehydrogenas e measurement [facility] Lactate dehydrogenas e measurement [facility] Work Phone: Measurement of Aspergillus flavus antibody [facility] Measurement of Aspergillus fumigatus antibody [facility] Measurement of Aspergillus niger antibody [facility] Measurement of respiratory function [facility] Work Phone: Mouse urine proteins RAST [facility] PAROTIDECTOMY PAROTIDECTOMY Ro utine scheduled Parotid mass [facility] Work Phone: Patient referral [facility] Work Phone: Plantain (Taiwanese) RAST [facility] Reticulocyte count [facility] Reticulocyte count [facility] Surgical pathology procedure SPECIMEN FOR SURGICAL PATH Anatomic Pathology Routine Parotid mass Release Upon Ordering for 1 Occurrences starting 10/26/2024 [employer] Work Phone: Comment on above: Release Upon Ordering for 1 Occurrences starting 10/26/2024 Vitamin B12 measurement [facility] Work Phone: [place] IgE Ab [Units/volume] in Serum [facility] Emporium IgE Ab [Units/volume] in Serum [facility] Immunizations Immunization Date Immunization Notes Care Provider [facility] 12-24-2023 Seasonal trivalent influenza vaccine, adjuvanted, preservative free Perry Stafford MD Work Phone: [facility] 12-24-2023 influenza virus vaccine, unspecified formulation Perry Stafford MD Work Phone: [facility] 11-22-2022 Influenza, injectabl e, adjuvanted, quadrivalent, preservative free (OWZ=360) Perry Stafford MD Work Phone: [facility] 11-22-2022 influenza virus vaccine, unspecified formulation Injection Wstr Work Phone: [facility] 11-30-2021 Influenza, injectabl e, adjuvanted, quadrivalent, preservative free (MTG=023) Perry Stafford MD Work Phone: [facility] 12-18-2020 Covid (Pfizer) Dr. Shekhar lopez Work Phone: [facility] 11-06-2019 Influenza, injectabl e, high-dose seasonal, quadrivalent, preservative free (WOM=558) Perry Stafford MD Work Phone: [facility] 11-24-2017 pneumococcal Conjuga te, unspecified formulation Nat Hodge [facility] Work Phone: 10-25-2014 pneumococcal conjuga te vaccine, 13 valent Perry Stafford MD Work Phone: [facility] 03-13-2011 zoster vaccine, live Tanna Shen Work Phone: [facility] 11-27-2010 influenza virus vaccine, unspecified formulation Tanna Shen Work Phone: [facility] 08-30-2010 pneumococcal polysaccharide vaccine, 23 valent Tanna Shen Work Phone: [facility] Work Phone: 01-08-2006 influenza virus vaccine, unspecified formulation Tanna Shen Work Phone: [facility] Work Phone: 10-22-2004 tetanus and diphther ia toxoids, adsorbed, preservative free, for adult use (2 Lf of tetanus toxoid and 2 Lf of diphtheria toxoid) Tanna Shen Work Phone: [facility] Work Phone: Payers Date Payer Category Payer Unknown [id number] 2024 Medicare [id number] 2024 Commercial Indemnity [facility] [id number] 2023 Self-pay [id number] 2023 Private Health Insurance [id number] 2020 Unknown [id number] 2016 Medicare FFS [id number] 2010 Medicare [id number]. [id number] 2010 Medicare [id number] 1945 Unknown [id number] 2.16.840.1.070989.3.579.2. 627 1944 Unknown [id number] 2.16.840.1.699725.3.579.2. 732 1944 Unknown [id number] 2.0.1.538804.3.579.2. 73 1944 Unknown [id number] 2.840.1.487579.3.579.2. 1944 Unknown [id number] 2.0.1.932123.3.579.2. 73 1944 Unknown [id number] 2.0.1.955942.3.579.2. 1944 Unknown [id number] .0.1.735206.3.579.2. 1944 Unknown [id number] 2.0.1.289481.3.579.2. 1944 Unknown [id number] ..1.967852.3.579.2 1944 Unknown [id number] .0.1.093593.3.579.. 73 Private Health Insurance [facility] [id number] Unknown [id number] Unknown [id number] 04.11.830.1.668441.3.579.2. 462 Unknown [id number] .840.1.995981.3.579.2. 462 Unknown [id number] .840.1.126020.3.579.2. 462 Unknown [id number] .840.1.735718.3.579.2. 462 Unknown [id number] .840.1.425350.3.579.2. 462 Unknown [id number] 2.840.1.797648.3.579.2. 462 Unknown [id number] 2.840.1.519941.3.579.2. 462 Unknown [id number] 2.16.840.1.808335.3.579.2. 462 Unknown [id number] 2.16.840.1.609938.3.579.2. 462 Unknown [id number] 2.16.840.1.605879.3.579.2. 462 Unknown [id number] 2.16.840.1.006134.3.579.2. 462 Unknown [id number] 2.16.840.1.000201.3.579.2. 462 Unknown [id number] 2.16.840.1.993876.3.579.2. 462 Unknown [id number] 2.16.840.1.459804.3.579.2. 462 Unknown [id number] 2.16.840.1.443000.3.579.2. 462 Social History Date Type Detail Facility Start: 06-26-2021 End: 04-08-2023 Tobacco smoking status MDIS Unknown if ever smoked [facility] Start: 12-16-2019 Non-smoker [facility] Start: 1945 Sex Assigned At Male [facility] Start: 08-31-2010 End: 11-25-2023 Tobacco smoking status MDIS Never smoked tobacco [facility] Start: 02-12-2022 End: 09-21-2024 Alcohol intake Current non-drinker of alcohol (finding) [facility] Start: 02-12-2022 End: 10-12-2024 History of Social function [facility] Start: 02-12-2022 End: 10-12-2024 Tobacco use panel [facility] Start: 1945 Sex Assigned At Not on file [facility] Start: 08-31-2010 End: 09-17-2024 Tobacco use and exposure Smokeless tobacco non-user [facility] Start: 01-26-2012 National Score (1-10 0), lower number is lower risk 48 [facility] Start: 04-29-2024 End: 08-24-2024 Sex Male (finding) [facility] Sexual O[facility] History of tobacco use Passive smoker [facility] Start: 10-12-2024 End: 10-27-2024 Alcoholic beverage intake Ex-drinker (finding) [facility] Start: 10-12-2024 End: 10-27-2024 Details of drug misuse behavior Misused drugs in past (finding) [facility] Mental Status Date Assessment Result Facility 03-11-2023 Cognitive function Level Of Cons ciousness Awake;Alert;Appropriate;Follow s Commands [facility] Work Phone: 03-06-2023 Cognitive function Voice/Name [facility] Work Phone: 05-07-2021 Cognitive function Voice/Name [facility] Work Phone: Clinical Notes 05-19-2007 to 12-14-2024 Note Date & Type Note Facility 12-14-2024 Note HNO ID: [id number] Author: PARUL JORDAN LPN Service: ? Author Type: Licensed Nurse Type: Progress Notes Filed: 12/14/2024 09:10 Note Text: Patient here for injection of Aranesp. Given SQ in right arm. Patient tolerated well. Parul Jordan LPN [facility] 11-23-2024 Note [facility] 11-17-2024 Evaluation note Diagnosis Onset Date Resolution Nonrheumatic aortic (valve) stenosis chronic November 17, 2024 12:48pm Premature ventricular contractions chronic November 17, 2024 12:48pm [facility] Work Phone: 1(724) 564-328209-24-2025 Progress [facility] [address] [place] [address] OFFICE VISIT Date of Service: 11/17/24 MR#: [id number] Acct: [id number] Name: CHANCE MUNOZ Rep #: [id number] : 1945 Provider: JIMI Crump Age/Sex: 79/M [place] [facility] [place]: Signed HPI HPI History of Present Illness Details: CHANCE MUNOZ, is a 79 M who presents to the office today for a follow-up visit. He has a history of bradycardia and premature ventricular complexes. He returns for routine follow-up visit. This evaluation had demonstrated 4.4% PVCson the Holter in 2016. He states he is allergic to RSV vaccination and "all generic medications due to fillers". He was seen in the emergency room for a near syncopal event. There was concern over a sinus pause as he did have a pause of about 1 second noted on his telemetry strip. He did undergo a 48-hour Holter monitor which did demonstrate sinus rhythm with occasional PVCs/PACs, average heart rate 85 bpm. Ventricular ectopy 1.4%, supraventricular ectopy 0.3%, atrial fibrillation 0.0%. He will continue with his current medical this time, and continue to monitor for any concerning symptoms. He denies chest, arm, jaw, or neck discomfort. He denies palpitations. He states mild, intermittentbilateral lower extremity edema. He denies claudication. He states shortness of breath with activity when he was clearing off the sidewalk. He was seen in the emergency department and workup was negative. He was treated for dehydration. He denies shortness of breath at rest, orthopnea, or PND. He de nies chronic cough. He denies significant, sudden weight gain. He states dizziness when turning hishead too quickly. He denies lightheadedness, near- syncope, or syncope. He denies blood in urine, blood in stool, or epistaxis. He denies fever with chills. He denies myalgia. He states fatigue. His exercise level has remained stable. Intake Vital Signs 05/18/24 14:00 06/17/24 08:51 11/17/24 13:46 Height 5 ft 10.5 in 5 ft 10.5 in 5 ft 10.5 in Weight: 155 lb BMI 21.9 BP 96/62 Blood Pressure Location Lt brachial Position Sitting Respiration 16 Pulse 64 Pulse Source NIBP Intake Visit Reasons: 6 M FU Mri Technician Required: No Is patient in pain?: No Allergies cefaclor (From Ceclor) Allergy (Verified 11/17/24 13:52) Unknown contact metal agent Allergy (Verified 11/17/24 13:52) Rash nortriptyline Allergy (Verified 11/17/24 13:52) Unknown Penicillins Allergy (Verified 11/17/24 13:52) blisters on feet alfuzosin (From Uroxatral) Adverse Reaction (Verified 11/17/24 13:52) Unknown esomeprazole (From Nexium) Adverse Reaction (Verified 11/17/24 13:52) Itching lansoprazole (From Prevacid) Adverse Reaction (Verified 11/17/24 13:52) Upset Stomach Medications ?Medication ?Instructions ?Recorded ?Confirmed ?Type finasteride 5 mg tablet 5 mg PO DAILY 01/09/2111/17 History paroxetine HCl 40 mg tablet 40 mg PO DAILY 01/09/21 History Acapella #1 ea 02/21/22 10/13/23 Rx spacer #1 ea 08/29/22 10/13/23 Rx tamsulosin 0.4 mg capsule 0.4 mg PO QHS 04/08/2311/17 History levothyroxine 100 mcg tablet 100 mcg PO QDAY 07/29/23 11/17/24 History fluticasone propionate 50 1 spray intranasal QDAY 09/2411/17/24 History mcg/actuation nasal spray,suspension tralokinumab-ldrm 150 mg/mL 300 mg subcut Q2W 10/13/23 11/17/24 History subcutaneous syringe (Adbry) albuterol sulfate 90 mcg/actuation 2 inh inhalation Q6 H PRN SOB #8.5 11/17/23 11/17/24 Rx aerosol inhaler grams pantoprazole 40 mg tablet,delayed 40 mg PO DAILY #90 T ABLETS 12/12/23 11/17/24 Rx release bupropion HCl 150 mg 24 hr tablet, 150 mg PO DAILY 11/17/24 History extended release polyethylene glycol 3350 17 4 g PO QDAY 05/18/2411/17 History gram/dose oral powder (Miralax) Ejection fraction %: 60 Have you fallen in the past year?: Yes [facility] Medical History MDS (myelodysplastic syndrome) Acute pharyngitis, unspecified Acute sinusitis, unspecified Impacted cerumen of both ears Acute bronchitis, unspecified Contact with and (suspected) exposure to other viral communicable diseases URI (upper respiratory infection) Right upper lobe pulmonary infiltrate Esophagitis Abdominal pain Hypothyroidism Wears dentures Anxiety Thyroid disease Arthritis Injury of back Loss of consciousness History of diverticulitis History of IBS History of hiatal hernia Non-smoker Seasonal allergies Leg cramps History of edema Cardiology follow-up encounter Personal history of colonic polyps Vertigo Concussion Chronic anemia Lipoma Skin lesion Fibromyalgia GERD (gastroesophageal reflux disease) Premature ventricular contractions Bradycardia Surgical History History of removal of cyst History of bilateral cataract extraction Hx of colonoscopy History of esophagogastroduodenoscopy (EGD) Hx of colonoscopy History of prostate surgery History of testicular mass excision History of tonsillectomy and adenoidectomy History of cholecystectomy Family History Father Diabetes Afib pacemaker Mother Heart disease Hx CHF Hypertension Social History household members: spouse housing: house Smoking Status: Never smoker alcohol intake: never substance use type: does not use caffeine: Yes Type: carbonated beverages what type of physical activity do you participate in: none seatbelt use: always do you feel safe at home: Yes ROS Const Const: Negative for fatigue or weakness Eyes Eyes: Negative for change in vision ENT ENT: Positive for balance problems (Vertigo); Negative for dizziness Cardio Chest Pain: No Palpitations: No Edema: Bilateral (Mild. Wears compression stockings) Muscle aches with walking: None Resp Respiratory: Negative for SOB with activity, SOB at rest or SOB orthopnea\\SOB lying down GI GI: Negative nausea or heartburn : Negative for hematuria or frequent nighttime urination/ nocturia Musc Musc: Positive for balance problems (Vertigo) Skin Skin: Negative non-healing lesions or rash Neuro Neuro: Positive for vertigo; Negative for dizziness, lightheadedness, near syncope, syncope or weakness Endo Endo: Negative for fatigue Allergy Allergy/Immunology: Negative for rash Cardiology Exam Const Appearance: cooperative, healthy appearing, comfortable and no acute distress Nutritional Appearance: average body habitus and well nourished Orientation: alert, awake and oriented x3 Head Head: normal to inspection Ears: hearing grossly normal bilaterally Nose: external nose normal Face and Sinus: face symmetric Mouth: moist mucous membranes Eyes General: appearance normal, both eyes and all related structures Eyelids: eyelids normal EOM: EOM intact bilaterally Neck Neck: normal visual inspection and no JVD Carotids: normal carotid upstroke Chest Chest inspection: normal inspection of the chest, symmetric chest movement and normal respiratory effort; Negative cough Auscultation: Bilateral: Clear to Auscultation Cardio Rate: regular rate Rhythm: regular rhythm Heart sounds: S1 normal and S2 normal; Negative rub, gallop or murmur GI GI: normal to inspection Neuro General: patient alert, patient awake, patient oriented x3 and CN's II-XI intactbilaterally Skin Skin: no rashes or lesions noted Extremities Pulses: Normal: Right Posterior Tibial Pulse, Left Posterior Tibial Pulse, RightRadial Pulse and Left Radial Pulse Lower Extremity Edema: None: Bilateral Psych Psychological: normal affect Supplemental Info Supplemental Information Echo Complete 05/2024 Interpretation Summary Normal LV size. Left ventricular systolic function is normal. The left ventricular ejection fraction is 60 %. Moderate focal aortic valve thickening. Mean aortic valve gradient 16 mmHg. Mild aortic stenosis. Stage 1 diastolic dysfunction. Echocardiogram 12/04/2015: Normal LV size. Left ventricular systolic function is lower limits of normal. The estimated ejection fraction is 50%. Trisinus/trileaflet aortic valve. Structurally normal valves. Stress Test 09/03/22 Conclusion: Normal pharmacologic myocardial perfusion stress test. Preserved ejection fraction. 48 Hour Holter Monitor 11/25/23 Conclusion Normal Sinus Rhythm with occasional PVCs/PACs Chest CTA 11/10/21 Normal enhancement of the main pulmonary artery and right and left pulmonary arteries. Normal enhancement of the bilateral peripheral pulmonary arteries. There is no demonstrated pulmonary embolism. There is atherosclerotic calcification of the aortic arch and descending thoracic aorta. There is no demonstrated aortic dissection. Normal heart and pericardium. There are calcifications of the coronary arteries. Assessment and Plan Assessment and Plan (1) Premature ventricular contractions: Status: Chronic Plan: Patient has a history of premature ventricular contractions. He is asymptomaticwith these. Most recent echocardiogram May 2024 showed normal LV size and function. We will continue to monitor. (2) Nonrheumatic aortic (valve) stenosis: Status: Chronic Plan: Echocardiogram in May 2024 showed LV function 60% and mild aortic valve stenosis with a mean aortic valve gradient of 16 mmHg. We will continue to monitor. Plan Details Additional Comments: Thank you for allowing us to participate in the patients plan of care, if you have any questions please do not hesitate to call. Plan was reviewed with patient/family member along with red flag symptoms. Understanding was acknowledged. Questions were answered to apparent satisfaction. This note was generated using a voice recognition system and there may be incorrect words, spellingor punctuation that were not noted when reviewing the office note prior to saving. Portions of this documentation were copied and pasted from previous office visitnotes to provide a cohesive continuity of the history. The note has been reviewed, edited, and updated, as necessary. 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 Shreyas Amezquita, DO ~ [facility]09-24-2025 Progress note Author Jeremias Crump [facility] Note Date/Time November 17, 2024 2:17pm [facility] [address] [place] [address] OFFICE VISIT Date of Service: 11/17/24 MR#: [id number] Acct: [id number] Name: CHANCE MUNOZ Rep #: [id number] : 1945 Provider: JIMI Crump Age/Sex: 79/M Location: [facility] Status: Signed HPI HPI History of Present Illness Details: CHANCE MUNOZ, is a 79 M who presents to the office today for a follow-up visit. He has a history of bradycardia and premature ventricular complexes. He returns for routine follow-up visit. This evaluation had demonstrated 4.4% PVCson the Holter in 2016. He states he is allergic to RSV vaccination and "all generic medications due to fillers". He was seen in the emergency room for a near syncopal event. There was concern over a sinus pause as he did have a pause of about 1 second noted on his telemetry strip. He did undergo a 48-hour Holter monitor which did demonstrate sinus rhythm with occasional PVCs/PACs, average heart rate 85 bpm. Ventricular ectopy 1.4%, supraventricular ectopy 0.3%, atrial fibrillation 0.0%. He will continue with his current medical this time, and continue to monitor for any concerning symptoms. He denies chest, arm, jaw, or neck discomfort. He denies palpitations. He states mild, intermittent bilateral lower extremity edema. He denies claudication. He states shortness of breath with activity when he was clearing off the sidewalk. He was seen in the emergency department and workup was negative. He was treated for dehydration. He denies shortness of breath at rest, orthopnea, or PND. He denies chronic cough. He denies significant, sudden weight gain. He states dizziness when turning his head too quickly. He denies lightheadedness, near-syncope, or syncope. He denies blood in urine, blood in stool, or epistaxis. He denies fever with chills. He denies myalgia. He states fatigue. His exercise level has remained stable. Intake Vital Signs 05/18/24 14:00 06/17/24 08:51 11/17/24 13:46 Height 5 ft 10.5 in 5 ft 10.5 in 5 ft 10.5 in Weight: 155 lb BMI 21.9 BP 96/62 Blood Pressure Location Lt brachial Position Sitting Respiration 16 Pulse 64 Pulse Source NIBP Intake Visit Reasons: 6 M FU Mri Technician Required: No Is patient in pain?: No Allergies cefaclor (From Ceclor) Allergy (Verified 11/17/24 13:52) Unknown contact metal agent Allergy (Verified 11/17/24 13:52) Rash nortriptyline Allergy (Verified 11/17/24 13:52) Unknown Penicillins Allergy (Verified 11/17/24 13:52) blisters on feet alfuzosin (From Uroxatral) Adverse Reaction (Verified 11/17/24 13:52) Unknown esomeprazole (From Nexium) Adverse Reaction (Verified 11/17/24 13:52) Itching lansoprazole (From Prevacid) Adverse Reaction (Verified 11/17/24 13:52) Upset Stomach Medications ?Medication ?Instructions ?Recorded ?Confirmed ?Type finasteride 5 mg tablet 5 mg PO DAILY 01/09/2111/17 History paroxetine HCl 40 mg tablet 40 mg PO DAILY 01/09/21 History Acapella #1 ea 02/21/22 10/13/23 Rx spacer #1 ea 08/29/22 10/13/23 Rx tamsulosin 0.4 mg capsule 0.4 mg PO QHS 04/08/2311/17 History levothyroxine 100 mcg tablet 100 mcg PO QDAY 07/29/23 11/17/24 History fluticasone propionate 50 1 spray intranasal QDAY 09/2411/17/24 History mcg/actuation nasal spray,suspension tralokinumab-ldrm 150 mg/mL 300 mg subcut Q2W 10/13/23 11/17/24 History subcutaneous syringe (Adbry) albuterol sulfate 90 mcg/actuation 2 inh inhalation Q6 H PRN SOB #8.5 11/17/23 11/17/24 Rx aerosol inhaler grams pantoprazole 40 mg tablet,delayed 40 mg PO DAILY #90 T ABLETS 12/12/23 11/17/24 Rx release bupropion HCl 150 mg 24 hr tablet, 150 mg PO DAILY 11/17/24 History extended release polyethylene glycol 3350 17 4 g PO QDAY 05/18/2411/17 History gram/dose oral powder (Miralax) Ejection fraction %: 60 Have you fallen in the past year?: Yes [facility] Medical History MDS (myelodysplastic syndrome) Acute pharyngitis, unspecified Acute sinusitis, unspecified Impacted cerumen of both ears Acute bronchitis, unspecified Contact with and (suspected) exposure to other viral communicable diseases URI (upper respiratory infection) Right upper lobe pulmonary infiltrate Esophagitis Abdominal pain Hypothyroidism Wears dentures Anxiety Thyroid disease Arthritis Injury of back Loss of consciousness History of diverticulitis History of IBS History of hiatal hernia Non-smoker Seasonal allergies Leg cramps History of edema Cardiology follow-up encounter Personal history of colonic polyps Vertigo Concussion Chronic anemia Lipoma Skin lesion Fibromyalgia GERD (gastroesophageal reflux disease) Premature ventricular contractions Bradycardia Surgical History History of removal of cyst History of bilateral cataract extraction Hx of colonoscopy History of esophagogastroduodenoscopy (EGD) Hx of colonoscopy History of prostate surgery History of testicular mass excision History of tonsillectomy and adenoidectomy History of cholecystectomy Family History Father Diabetes Afib pacemaker Mother Heart disease Hx CHF Hypertension Social History household members: spouse housing: house Smoking Status: Never smoker alcohol intake: never substance use type: does not use caffeine: Yes Type: carbonated beverages what type of physical activity do you participate in: none seatbelt use: always do you feel safe at home: Yes ROS Const Const: Negative for fatigue or weakness Eyes Eyes: Negative for change in vision ENT ENT: Positive for balance problems (Vertigo); Negative for dizziness Cardio Chest Pain: No Palpitations: No Edema: Bilateral (Mild. Wears compression stockings) Muscle aches with walking: None Resp Respiratory: Negative for SOB with activity, SOB at rest or SOB orthopnea\\SOB lying down GI GI: Negative nausea or heartburn : Negative for hematuria or frequent nighttime urination/ nocturia Musc Musc: Positive for balance problems (Vertigo) Skin Skin: Negative non-healing lesions or rash Neuro Neuro: Positive for vertigo; Negative for dizziness, lightheadedness, near syncope, syncope or weakness Endo Endo: Negative for fatigue Allergy Allergy/Immunology: Negative for rash Cardiology Exam Const Appearance: cooperative, healthy appearing, comfortable and no acute distress Nutritional Appearance: average body habitus and well nourished Orientation: alert, awake and oriented x3 Head Head: normal to inspection Ears: hearing grossly normal bilaterally Nose: external nose normal Face and Sinus: face symmetric Mouth: moist mucous membranes Eyes General: appearance normal, both eyes and all related structures Eyelids: eyelids normal EOM: EOM intact bilaterally Neck Neck: normal visual inspection and no JVD Carotids: normal carotid upstroke Chest Chest inspection: normal inspection of the chest, symmetric chest movement and normal respiratory effort; Negative cough Auscultation: Bilateral: Clear to Auscultation Cardio Rate: regular rate Rhythm: regular rhythm Heart sounds: S1 normal and S2 normal; Negative rub, gallop or murmur GI GI: normal to inspection Neuro General: patient alert, patient awake, patient oriented x3 and CN's II-XI intactbilaterally Skin Skin: no rashes or lesions noted Extremities Pulses: Normal: Right Posterior Tibial Pulse, Left Posterior Tibial Pulse, RightRadial Pulse and Left Radial Pulse Lower Extremity Edema: None: Bilateral Psych Psychological: normal affect Supplemental Info Supplemental Information Echo Complete 05/2024 Interpretation Summary Normal LV size. Left ventricular systolic function is normal. The left ventricular ejection fraction is 60 %. Moderate focal aortic valve thickening. Mean aortic valve gradient 16 mmHg. Mild aortic stenosis. Stage 1 diastolic dysfunction. Echocardiogram 12/04/2015: Normal LV size. Left ventricular systolic function is lower limits of normal. The estimated ejection fraction is 50%. Trisinus/trileaflet aortic valve. Structurally normal valves. Stress Test 09/03/22 Conclusion: Normal pharmacologic myocardial perfusion stress test. Preserved ejection fraction. 48 Hour Holter Monitor 11/25/23 Conclusion Normal Sinus Rhythm with occasional PVCs/PACs Chest CTA 11/10/21 Normal enhancement of the main pulmonary artery and right and left pulmonary arteries. Normal enhancement of the bilateral peripheral pulmonary arteries. There is no demonstrated pulmonary embolism. There is atherosclerotic calcification of the aortic arch and descending thoracic aorta. There is no demonstrated aortic dissection. Normal heart and pericardium. There are calcifications of the coronary arteries. Assessment and Plan Assessment and Plan (1) Premature ventricular contractions: Status: Chronic Plan: Patient has a history of premature ventricular contractions. He is asymptomaticwith these. Most recent echocardiogram May 2024 showed normal LV size and function. We will continue to monitor. (2) Nonrheumatic aortic (valve) stenosis: Status: Chronic Plan: Echocardiogram in May 2024 showed LV function 60% and mild aortic valve stenosis with a mean aortic valve gradient of 16 mmHg. We will continue to monitor. Plan Details Additional Comments: Thank you for allowing us to participate in the patients plan of care, if you have any questions please do not hesitate to call. Plan was reviewed with patient/family member along with red flag symptoms. Understanding was acknowledged. Questions were answered to apparent satisfaction. This note was generated using a voice recognition system and there may be incorrect words, spelling or punctuation that were not noted when reviewing the office note prior to saving. Portions of this documentation were copied and pasted from previous office visitnotes to provide a cohesive continuity of the history. The note has been reviewed, edited, and updated, as necessary. Follow Up: 12-15 Months (CARTOON ANIMATOR) Coding Level of Care Code Off vis,est,level 3 Diagnoses Premature ventricular contractions I49.3 Nonrheumatic aortic (valve) stenosis I35.0 Coding Level of Care Code Off vis,est,level 3 Diagnoses Premature ventricular contractions I49.3 Nonrheumatic aortic (valve) stenosis I35.0 Clinical Quality Measures Falls Risk Screening/Assistive Devices Have you fallen in the past year?: Yes Cardiac Ejection fraction %: 60 11/17/24 1521 <Electronically signed by Jeremias SOTOC> Date _ Jeremias Crump NP BURN OUT SCARFING OPERATOR-C Cosigner Signature: Date (if applicable) CC: Dr. Shreyas Amezquita, DO ~ [facility] Work Phone: [phone] 139-830109-15-2025 History of Present illness Narrative* Robert Singh MD - 11/08/2024 10:49 AM EDT CC: Chief Complaint Patient presents with Post-op Follow-up Post op follow up HPI 09/17/2024: Chance Munoz is an 79 year old male referred by Dr. Melara from [place] for evaluation of a left-side parotid mass, present since November. Patient feels like it's grown, but only asmall amount. No facial weakness or skin involvement. No history of similar problems. Minor tenderness and pain on touch, which radiates to the ear. Patient did have a scan for it. It's not debilitating, but it does bother him. He's had a needle biopsy, which was inconclusive, but notes the mass went down significantly after the procedure. 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 Patient has been doing well since the procedure, and feels better overall. Reports minor numbness in front of his left ear, but the previous ear pain is gone, and he reports no other issues. Medical History[1] Surgical History[2] Allergies Lansoprazole, Alfuzosin, Cefaclor, Esomeprazole, Doxycycline, Levofloxacin, Morphine, Nortriptyline, and Penicillins Medications Current Outpatient Medications Medication Sig Dispense Refill paroxetine (PAXIL) 40 MG tablet Take 40 mg by mouth daily. finasteride (PROSCAR) 5 MG tablet Take 5 mg by mouth daily. pantoprazole (PROTONIX) 40 MG tablet Take 40 mg by mouth. tamsulosin (FLOMAX) 0.4 MG capsule 0.4 mg. Tralokinumab-ldrm 150 MG/ML SOSY 300 mg. levothyroxine (SYNTHROID) 100 MCG tablet TAKE 1 TABLET BY MOUTH DAILY IN THE MORNING ON AN EMPTY STOMACH fluticasone (FLONASE) 50 mcg/act nasal inhaler Use 1 [place] in each nostril daily. No current facility-administered medications for this visit. Family History The patient's family history is not on file.. Social History: Social History[3] Review of Systems - as per HPI, otherwise the balance of 10 systems is negative Physical Exam Vitals: 11/08/24 1048 Pulse: 63 Temp: 97.3 F (36.3 C) SpO2: 99% General apperance: WN/WD adult in no apparent distress, sitting in a chair Ability to communicate: normal voice without hoarseness Head and Face: Atraumatic, normocephalic; skin with no masses or lesions; sinuses nontender to palpation, face symmetric with normal movement Salivary Glands: Left parotid soft. Incision site healed. Very minimal edema. Ears:External ears are intact without any lesions or masses. Eyes: EOM Intact, sclera anicteric, no conjunctival injection. Nose: External nose midline Neck: no LAD. CV: No clubbing/cyanosis/edema in hands Respiration: Breathing comfortably, no stridor or stertor Neuro: A&Ox3, Cranial nerves 2-12 intact and symmetric. Normal affect. Specimen for Surgical Path 10/26/2024 Final Diagnosis A. "Parotid Gland, Left parotid" Papillary cystadenoma, oncocytic type, negative for malignancy Background salivary gland with no pathologic changes. Assessment/Recommendations: Chance Munoz is a 79 year old male who presents today for: 1. Warthin's tumor - Patient has healed up great. - Follow up PRN. Electronically signed by Lonnie Lang scribing for and in the presence of Dr. Robert Singh on 11/08/2024 at 10:50 AM All medical record entries made by the scribe were at my direction and personally dictated by me. Lorenzo reviewed and edited the record and confirm that the note above accurately reflects all work, treatment, procedures, and medical decision making performed by me. Robert Singh MD [1] No past medical history on file. [2] Past Surgical History: Procedure Laterality Date PAROTIDECTOMY Left 10/26/2024 Procedure: PAROTIDECTOMY; Surgeon: Robert Singh MD; Location: PERIOPERATIVE SERVICES; Service:Otolaryngology [3] Social History Socioeconomic History Marital status: Unknown Tobacco Use Smoking status: Never Passive exposure: Past Smokeless tobacco: Never Substance and Sexual Activity Alcohol use: Not Currently Drug use: Not Currently * [facility] Jeanie Hortensia [place] - 11/08/2024 10:48 AM EDT Patient was identified by name and date of . Pharmacy updated Vital signs taken Patient in exam room ready for . Princess Mora., MTA documented in this [id number] ID: [id number] Author: PARUL JORDAN LPN Service: ? Author Type: Licensed Nurse Type: Progress Notes Filed: 11/02/2024 09:30 Note Text: Patient here for injection of Aranesp. Given SQ in right arm. Patient tolerated well. Parul Jordan [facility]09-09-2025 History of Present illness Narrative* Parul Jordan LPN - 11/02/2024 9:08 AM EDT Patient here for injection of Aranesp. Given SQ in right arm. Patient tolerated well. Parul Jordan LPN [facility] Postoperative evaluation and management note* Brief Operative Note - Robert Singh MD - 10/26/2024 10:57 AM EDT Brief Operative Note MAIN OR 07 Chance Munoz 78 year old male Surgical Contact Serial Number: [id number] Preoperative Diagnosis: Pre-op Diagnosis * 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] Postoperative Diagnosis: * 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] Procedures: Surgical CPTs Procedures EXCISION, PAROTID TUMOR/PAROTID GLAND; LATERAL LOBE, W/O NERVE DISSECTION No data filed Surgeon(s): Surgeon(s): Robert Singh MD Staff: Scrub: Kayla Brito RN; Bernadette Skelton CST Marketing Senior Recruiter Nurse: Kayla Brito RN; Adela Dumont RN Event Producer: Jennifer Arce MD Anesthesia: General Anesthesiologist: Rowan Gaviria MD MEDICAL RECORDS COORDINATOR: Timur Salas APRN-ILIR Anesthesia Student: Amor Cowart Specimen(s): ID Type Source Tests Collected by Time Destination 1 : Left parotid Tissue Parotid Gland SPECIMEN FOR SURGICAL PATH Robert Singh MD 10/26/2024 112 Estimated Blood Loss: 5-10 cc Lines/Drains: Peripheral IV Access: 10/26/24 1000 20 gauge Left Arm (Active) Site Assessment WNL;Dressing intact 10/26/24 1000 Infusion Status Port #1 Infusing;Positive blood return;Patent 10/26/24 1000 Temporarily Retained Foreign Object: No Findings: 1.5-2cm left parotid mass Complications: None Status at end of surgery: Stable Activity: Ad Kaylah Surgical wound class: Yes, wound was clean. Patient Class: Planned Extended Recovery. Is this a patient scheduled as an outpatient that needs to be admitted as an inpatient? No Signed by Robert Singh MD 10/26/2024 12:04 PM [id number] Miscellaneous Notes* Brief Operative Note - Robert Singh MD - 10/26/2024 10:57 AM EDT Brief Operative Note MAIN OR 07 Chance Munoz 78 year old male Surgical Contact Serial Number: [id number] Preoperative Diagnosis: Pre-op Diagnosis * 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] Postoperative Diagnosis: * 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] Procedures: Surgical CPTs Procedures EXCISION, PAROTID TUMOR/PAROTID GLAND; LATERAL LOBE, W/O NERVE DISSECTION No data filed Surgeon(s): Surgeon(s): Robert Singh MD Staff: Scrub: Kayla Brito RN; Bernadette Skelton, [employer] Marketing Senior Recruiter Nurse: Kayla Brito RN; Adela Dumont portfolio administratorEvent Producer: Jennifer Arce MD Anesthesia: General Anesthesiologist: Rowan Gaviria MD MEDICAL RECORDS COORDINATOR: Timur Salas APRN-ILIR Anesthesia Student: Amor Cowart Specimen(s): ID Type Source Tests Collected by Time Destination 1 : Left parotid Tissue Parotid Gland SPECIMEN FOR SURGICAL PATH Robert Singh MD 10/26/2024 112 Estimated Blood Loss: 5-10 cc Lines/Drains: Peripheral IV Access: 10/26/24 1000 20 gauge Left Arm (Active) Site Assessment WNL;Dressing intact 10/26/24 1000 Infusion Status Port #1 Infusing;Positive blood return;Patent 10/26/24 1000 Temporarily Retained Foreign Object: No Findings: 1.5-2cm left parotid mass Complications: None Status at end of surgery: Stable Activity: Ad Kaylah Surgical wound class: Yes, wound was clean. Patient Class: Planned Extended Recovery. Is this a patient scheduled as an outpatient that needs to be admitted as an inpatient? No Signed by Robert Singh MD 10/26/2024 12:04 PM * OP Note - Robert Singh MD - 10/26/2024 10:31 AM EDT Operative Report DATE OF SERVICE: 10/26/2024 PATIENT:NAME@ PREOPERATIVE DIAGNOSIS: 1. left parotid mass POSTOPERATIVE DIAGNOSIS: 1. left parotid mass PROCEDURE: 1. left excision of parotid tumor without nerve dissection SURGEON: Robert Singh MD MITIGATION SUPERVISOR: Jennifer Arce MD ANESTHESIA: General endotracheal. ESTIMATED BLOOD LOSS: 10 mL COMPLICATIONS: None CONDITION: Stable to PACU. INTRAOPERATIVE FINDINGS: 1. left superficial parotid mass, 1-1.5 cm thin walled, well encapsulated cystic mass 2. Extracapsular parotidectomy performed, no facial nerve branches encountered. Facial nerve functional following extubation SPECIMEN: ID Type Source Tests Collected by Time Destination 1 : Left parotid Tissue Parotid Gland SPECIMEN FOR SURGICAL PATH Robert Singh MD 10/26/2024 1129 INDICATIONS AND CONSENT: Chance Munoz is a 78 year old who presented to the Otolaryngology clinic with a history of a left parotid mass. This was biopsied with FNA and had insufficient cellularity. They were therefore offered the aforementioned procedures. The procedure, risks, benefits, alternatives, potential complications, possible outcomes as well as the option of no treatment were reviewed with the patient who indicated they understood and wished to proceed forward with the procedure. Informed consent was obtained. DESCRIPTION OF PROCEDURE: On 10/26/2024, the patient was identified in the preoperative area, consent confirmed, and transported to the operating suite. They were then transferred to the operating room table and placed in a supine position. After induction of general endotracheal anesthesia, the bed was rotated 90 degrees and a proper surgeon initiated time out was performed. EMG electrodes were placed in the left orbicularis jae and orbicularis oculi muscle and grounding electrodes were placed in the right deltoid muscle. The electrodes were then connected to the nerve monitoring system and found to be functioning appropriately. A modified magdi incision was marked and then infiltrated with 1% lidocaine with 1:100,000 epinephrine. After allowing for adequate vasoconstrictive and anesthetic effects, the patient was then prepped and draped in the usual sterile fashion. We then began our parotidectomy. A 15 blade scalpel was used to incise our preplanned incision through the skin, dermis, and subcutaneous tissue starting in the preauricular region. Dissection was carried through the level of the superficial musculoaponeurotic system, dissection was not carried farinferiorly to the platysma as this was not necessary to locate the mass. The ear lobule was then retracted in a posterior superior direction and the facial skin flap retracted in an anterior direction. The skin flap was elevated with a 10 blade until the entirety of the mass was visualized. Once the flaps were created, they were then retracted with salvador skin hooks. The surrounding fascia and gland was then carefully dissected from the mass using blunt dissection and harmonic, carefully looking out for branches of facial nerve. The mass was freed circumferentially from the gland. No facial nerve branches were identified in close proximity to the mass. The mass was sent for permanent pathologic analysis. A Valsalva maneuver was performed and hemostasis was obtained in the surgical bed. The surgical bedwas then copiously irrigated and hemostasis was confirmed. Fibrillar was placed in the wound bed. The incision was then closed in a multilayer fashion using interrupted 4-0 polysorb sutures with 5-0 Fast for final skin closure. This concluded our procedure. The patient tolerated the procedure well without any apparent immediate post operative complications. All counts were correct x2. The patient was rotated back to their original position, gently awakened from general anesthesia and taken to the PACU in stable condition. Dr. Singh was present for all critical portions of the procedure Jennifer Arce MD Attending Physician Attestation: Teaching Physician Note: I was present for the entirety of the procedure and performed the ferris portions of the case as defined by me. I agree with the resident's medical decision making as documented in the resident's note. Robert Singh MD documented in this [id number] Surgery Surgical operation note* OP Note - Robert Singh MD - 10/26/2024 10:31 AM EDT Operative Report DATE OF SERVICE: 10/26/2024 PATIENT:NAME@ PREOPERATIVE DIAGNOSIS: 1. left parotid mass POSTOPERATIVE DIAGNOSIS: 1. left parotid mass PROCEDURE: 1. left excision of parotid tumor without nerve dissection SURGEON: Robert Singh MD MITIGATION SUPERVISOR: Jennifer Arce MD ANESTHESIA: General endotracheal. ESTIMATED BLOOD LOSS: 10 mL COMPLICATIONS: None CONDITION: Stable to PACU. INTRAOPERATIVE FINDINGS: 1. left superficial parotid mass, 1-1.5 cm thin walled, well encapsulated cystic mass 2. Extracapsular parotidectomy performed, no facial nerve branches encountered. Facial nerve functional following extubation SPECIMEN: ID Type Source Tests Collected by Time Destination 1 : Left parotid Tissue Parotid Gland SPECIMEN FOR SURGICAL PATH Robert Singh MD 10/26/2024 1129 INDICATIONS AND CONSENT: Chance Munoz is a 78 year old who presented to the Otolaryngology clinic with a history of a left parotid mass. This was biopsied with FNA and had insufficient cellularity. They were therefore offered the aforementioned procedures. The procedure, risks, benefits, alternatives, potential complications, possible outcomes as well as the option of no treatment were reviewed with the patient who indicated they understood and wished to proceed forward with the procedure. Informed consent was obtained. DESCRIPTION OF PROCEDURE: On 10/26/2024, the patient was identified in the preoperative area, consent confirmed, and transported to the operating suite. They were then transferred to the operating room table and placed in a supine position. After induction of general endotracheal anesthesia, the bed was rotated 90 degrees and a proper surgeon initiated time out was performed. EMG electrodes were placed in the left orbicularis jae and orbicularis oculi muscle and grounding electrodes were placed in the right deltoid muscle. The electrodes were then connected to the nerve monitoring system and found to be functioning appropriately. A modified magdi incision was marked and then infiltrated with 1% lidocaine with 1:100,000 epinephrine. After allowing for adequate vasoconstrictive and anesthetic effects, the patient was then prepped and draped in the usual sterile fashion. We then began our parotidectomy. A 15 blade scalpel was used to incise our preplanned incision through the skin, dermis, and subcutaneous tissue starting in the preauricular region. Dissection was carried through the level of the superficial musculoaponeurotic system, dissection was not carried farinferiorly to the platysma as this was not necessary to locate the mass. The ear lobule was then retracted in a posterior superior direction and the facial skin flap retracted in an anterior direction. The skin flap was elevated with a 10 blade until the entirety of the mass was visualized. Once the flaps were created, they were then retracted with salvador skin hooks. The surrounding fascia and gland was then carefully dissected from the mass using blunt dissection and harmonic, carefully looking out for branches of facial nerve. The mass was freed circumferentially from the gland. No facial nerve branches were identified in close proximity to the mass. The mass was sent for permanent pathologic analysis. A Valsalva maneuver was performed and hemostasis was obtained in the surgical bed. The surgical bedwas then copiously irrigated and hemostasis was confirmed. Fibrillar was placed in the wound bed. The incision was then closed in a multilayer fashion using interrupted 4-0 polysorb sutures with 5-0 Fast for final skin closure. This concluded our procedure. The patient tolerated the procedure well without any apparent immediate post operative complications. All counts were correct x2. The patient was rotated back to their original position, gently awakened from general anesthesia and taken to the PACU in stable condition. Dr. Singh was present for all critical portions of the procedure Jennifer Arce MD Attending Physician Attestation: Teaching Physician Note: I was present for the entirety of the procedure and performed the ferris portions of the case as defined by me. I agree with the resident's medical decision making as documented in the resident's note. Robert Singh MD [id number] Hospital Discharge instructions* Discharge Instructions* Barbie Gomez RN - 10/26/2024 10:08 AM EDT Images from the original note were not included. [facility] DEPARTMENT OF OTOLARYNGOLOGY (ENT) DISCHARGE INSTRUCTIONS Outpatient Surgery Call [phone] during regular daytime business hours (8:00 am - 5:00 pm) and after 5:00 pm call [phone] and ask to speak with the ENT Resident Log Loader Helper with any questions or concerns. What to expect: Mild to moderate tenderness and swelling around your incisions Sore throat from the breathing tube. Use your pain medications as necessary. Treatment/wound care: The sutures/stiches under your chin are also dissolvable and under the skin. It is important to gently wash your incision with mild soap and water and apply an antibiotic ointment ointment 3 times daily for 3 days. After 3 days, switch to Vaseline or Aquaphor 3 times daily for 7-10 days. Your doctor will make the final recommendation prior to your discharge from the hospital Do not perform any strenuous activity or lift anything greater than 10 lbs for 2 weeks. Do not run a razor over any of the incisions for 2 weeks Call the office for any redness, increased pain, or drainage from your incisions Activity Get plenty of rest, especially in the first two to three days after surgery. Rest when you feel tired. Getting enough sleep will help you recover. You may shower or bathe as usual the day after surgery. Avoid strenuous activities, such as bicycle riding, jogging, weight lifting, or aerobic exercise, for at least 2 weeks. No travelling for at least 7 days following surgery. No driving while taking narcotics. Most patients will require 1 week off from work. It depends on the type of work you do and how you feel. Anesthesia Side Effects You received General anesthesia today. You may feel sleepy, tired, or have a sore throat. You may also feel drowsy, dizzy, or have the inability to think clearly. For your safety, do not drive, drink alcoholic beverages, take any unprescribed medication or make any important decisions for24 hours. Do not drive or operate heavy machinery while taking narcotic pain medications as these medications can alter perception, impair judgement, and slow reaction times. A responsible adult should be with you for at least the first 24 hours after discharge. Nutrition after Surgery: It is essential that you stay hydrated after surgery. This will aide in the healing process. Drink enough liquid to keep your urine a light/pale color. Make sure you do not take narcotic pain medication on an empty stomach as this may lead to nausea and/or vomiting. You may resume your regular diet. Medicines Your new medication(s): oxycodone Your regular medications can be resumed tomorrow. Pain Control Unfortunately, you may experience pain after your procedure. Adequate management should include alternative measures to help ease your pain and can include the use of ice/cool packs, acetaminophen (Tylenol) or Oxycodone can be taken as prescribed as needed for breakthrough pain. Oxycodone is a narcotic and can become addictive and may also induce constipation. Please take stool softeners when taking this medication to prevent constipation. If you are not given a prescriptionfor a stool softener, they may be purchased [id number] at any local drugstore. Specific Discharge Instructions: Call the office if you experience any of the following: Fever higher than 101 F Pain not relieved with medicines. Increased amounts of redness, swelling, or any malodorous or thick drainage from the incision. Swallowing or breathing difficulties Nausea and vomiting not resolved in 24 hours. Follow up: Our team will arrange follow in week (s). Please call the office for a follow up appointment ifyou have not heard from our schedulers in 2 days. Thank you for the opportunity to care for you today. Your health and healing are very important to us. We are committed to your recovery and continued well- being, and we hope that we made you feel ascomfortable as possible. Patient Education Opioids - Know the Risks What are opioids? Prescription opioids can be used to help relieve bmthmuel-wg-wveuoc pain and are often prescribed following a surgery or injury, or for certain health conditions. These medications can be an important part of treatment, but also come with serious risks. It is important to work with your health care provider to make sure you are getting the safest, most effective care. Common opioids include: Codeine Hydromorphone Morphine Fentanyl Meperidine Oxycodone Hydrocodone Methadone What are the risks and side effects? Prescription opioids carry serious risks of addiction and overdose, especially with prolonged use. An opioid overdose, often marked by slowed breathing, can cause sudden . The use of prescription opioids can have a number of side effects as well, even when taken as directed. What puts me at risk? History of drug misuse, JEZ or overdose Family history of drug misuse, JEZ or overdose Mental health disorders Sleep apnea Age 16-65 Home life (stress level) Environmental exposure Proper Storage and Disposal of Prescription Drugs Store your narcotics safely. Keep them out of reach of children and others in your home. Drop unused or prescription drugs at your local police station. Do not share your narcotic medicine with anyone. Visit RXdrugdropbox.org for locations. DO NOT keep extra or prescription drugs at home. DO NOT dispose of medication in the toilet or sink drain. Important Advisory When Using Pain Medications Do not use strong pain medications like Tylenol#3 (codeine/acetaminophen), Percocet (oxycodone/acetaminophen), Vicodin (hydrocodone/acetaminophen) or muscle relaxants when driving, caring for children, using tools, working or while doing any activity that may be dangerous. Danger is increased when pain medications are mixed with alcohol. When your pain begins to lessen, talk with the health care provider you see for pain about switching to another kind of pain reliever. 24 Hour Hot Line Telephone Numbers/ Information If you are having an Emergency Call 911 Suicide or Mental Health Mobile Crisis Help Line [phone] Narcotics Anonymous Center for Disease Control and Prevention www.cdc.gov 211 First Call For Help (16/09) 2-1-1 from phone OR [facility] PERIOPERATIVE DISCHARGE/HOME-GOING INSTRUCTIONS ANESTHESIA - GENERAL (ADULT) If a problem arises, you may contact your physician by calling [phone] and asking for the resident hotel operations manager for Otolaryngology service. Special Care Needs: Activity: Rest at home today and tomorrow, then progress to your regular activities as tolerated. Diet: Clear liquids are best tolerated at first. If you are not nauseated, you can progress your diet to solid foods as tolerated. Possible post-operative precautions: Call you doctor or clinic for: 1. Signs of infection such as fever or chills. 2. Severe pain that in not relieved by Tylenol or your pain medicine prescription. 3. You may have a sore throat - it is usually gone in 1 to 2 days. Post-anesthesia safety: Possible side effects include drowsiness, dizziness, or inability to think clearly. For your safety, do not drive, drink alcoholic beverages, take any unprescribed medication or make any important decisions for 24 hours. A responsible adult should be with you for 24 hours. If no urine by 8:00 PM or you become very uncomfortable and can t urinate, call [phone] or come to the emergency room. A risk of anesthesia is post operative nausea and/or vomiting (PONV). Certain patients?are at higher risk than others. Talk to your anesthesiologist about the plan to minimize this risk. In?general, it is best to start with only ice chips or small sips of water, then progress to clear, non-alcoholic fluids. You do not have to eat if you do not feel like it; fluids?are the most important in?the first?24 hours after surgery. If you start to eat, try bananas, applesauce, plain toast, saltine crackers, or broth; avoid fried or fatty foods. Make sure to eat something about 15 minutes before takingany pain medications. Seek medical attention for any prolonged?PONV and signs of dehydration. The day after surgery, a nurse will call to check on you. However, if there are any questions or concerns, please call us at the number listed in the home going instructions. Falls Prevention Each year, 1 in every 3 adults over the age of 65 are treated for fall-related injuries. The risk of falling increases with each decade of life. The good news is, many falls are preventable. Here are some fall prevention tips: Exercise can increase strength and improve balance, making falls much less likely. For more informati on visit: http://[facility].org/services/trnd-xcrkwe-ri-your-health/a-matte c-rp-aymjnfw/ Some medications or combinations of medications can lead to side effects that cause falls. Have a doctor or pharmacist review all medications to help reduce the chance of risky side effects. Poor vision can lead to falls. Have your eyes checked every year. Ensure that your glasses are the correct strength. Eliminate hazards in your home by completing this home safety checklist. Remove things you can trip over from stairs and places you walk Install handrails and lights on all staircases. Remove small throw rugs or use double-sided tape to keep rugs from slipping. Keep items you use often in cabinets you can reach easily without using a step stool. Put grab bars inside and next to the tub or shower and next to your toilet.Use non-slip mats in thebathtub and on shower floors. Improve the lighting in your home. Hang lightweight curtains or shades to reduce glare. Wear shoes both inside and outside the house. Avoid going barefoot or wearing slippers. To lower the risk of hip fractures: Get adequate calcium and vitamin D, from food and/or supplements. Do weight bearing exercise. Get screened for osteoporosis and treated if needed documented in this [id number] History and physical note* Jennifer Arce MD - 10/26/2024 10:04 AM EDT Images from the original note were not included. OTOLARYNGOLOGY HEAD AND NECK SURGICAL HISTORY AND PHYSICAL NOTE History of Present Illness 78 year old male here today for surgery. Patient reports no changes since last appointment on 09/21/24 Surgical Attestation: I have personally reviewed the patient's medical history and performed the physical examination below immediately before the procedure. Medications, allergies, and pertinent laboratory and diagnostictests were also reviewed at this time. Surgery is still indicated: yes Consent reviewed and signed by patient/legal guardian: yes Operative site verified and marked (if applicable): left 10-point review of systems is otherwise negative. Past Medical History Medical History[1] Past Surgical History There is no previous surgical history on file. Family History Family History[2] Social History Social History Tobacco Use Smoking status: Never Passive exposure: Past Smokeless tobacco: Never Substance Use Topics Alcohol use: Not Currently Medications ceFAZolin, 2,000 mg, Intravenous, One Time Dose Allergies Allergies[3] Physical Exam BP 125/61 (BP Location: right arm) Pulse 67 Temp 97.4 F (36.3 C) (Oral) Resp 18 Ht 5' 10.5"(1.791 m) Wt 148 lb (67.1 kg) SpO2 94% BMI 20.94 kg/m General: Lying in bed NAD, conversant, A&Ox3 HEENT: Normocephalic and atraumatic without mass or lesion Respiratory: Equal inspiration and expiration without stridor Cardiovascular: Regular rate Oral Cavity: Mucous membranes moist Relevant Labs Temperature: [97.4 F (36.3 C)] 97.4 F (36.3 C) Heart Rate: [67] 67 Respiratory Rate: [18] 18 BP: (125)/(61) 125/61 Basic Metabolic Panel No lab values to display. No intake or output data in the 24 hours ending 10/26/24 1004 CBC/PT/INR No lab values to display. Imaging: CT neck reviewed Assessment and Plan Mr. Munoz is a 78 year old male - OR today for left parotidectomy Discussed with attending Robert Singh MD Hayley Baker, MD [1] No past medical history on file. [2] No family history on file. [3] Allergies Allergen Reactions Lansoprazole Diarrhea Other Reaction(s): Upset Stomach Only the generic form Alfuzosin Other Reaction(s): Intolerance, numbness, Unknown numbness Cefaclor Itching Other Reaction(s): Unknown Esomeprazole Itching Doxycycline Rash Levofloxacin Hives Morphine Other Hallucinations Nortriptyline Hives Other Reaction(s): Unknown unknown Penicillins Itching and Rash Other Reaction(s): blisters on feet Cosigned by Robert Singh MD at 10/26/2024 12:08 PM EDT [id number] NoteOTOLARYNGOLOGY HEAD AND NECK SURGICAL HISTORY AND PHYSICAL NOTE History of Present Illness 78 year old male here today for surgery. Patient reports no changes since last appointment on 09/21/24 Surgical Attestation: I have personally reviewed the patient's medical history and performed the physical examination below immediately before the procedure. Medications, allergies, and pertinent laboratory and diagnostic tests were also reviewed at this time. Surgery is still indicated: yes Consent reviewed and signed by patient/legal guardian: yes Operative site verified and marked (if applicable): left 10-point review of systems is otherwise negative. Past Medical History Medical History[1] Past Surgical History There is no previous surgical history on file. Family History Family History[2] Social History Social History Tobacco Use Smoking status: Never Passive exposure: Past Smokeless tobacco: Never Substance Use Topics Alcohol use: Not Currently Medications ceFAZolin, 2,000 mg, Intravenous, One Time Dose Allergies Allergies[3] Physical Exam BP 125/61 (BP Location: right arm) Pulse 67 Temp 97.4 ???F (36.3 ???C) (Oral) Resp 18 Ht 5' 10.5" (1.791 m) Wt 148 lb (67.1 kg) SpO2 94% BMI 20.94 kg/m??? General: Lying in bed NAD, conversant, A AND Ox3 HEENT: Normocephalic and atraumatic without mass or lesion Respiratory: Equal inspiration and expiration without stridor Cardiovascular: Regular rate Oral Cavity: Mucous membranes moist Relevant Labs Temperature: [97.4 ???F (36.3 ???C)] 97.4 ???F (36.3 ???C) Heart Rate: [67] 67 Respiratory Rate: [18] 18 BP: (125)/(61) 125/61 Basic Metabolic Panel No lab values to display. No intake or output data in the 24 hours ending 10/26/24 1004 CBC/PT/INR No lab values to display. Imaging: CT neck reviewed Assessment and Plan Mr. Munoz is a 78 year old male - OR today for left parotidectomy Discussed with attending Robert Singh MD Hayley Baker, MD [1] No past medical history on file. [2] No family history on file. [3] Allergies Allergen Reactions Lansoprazole Diarrhea Other Reaction(s): Upset Stomach Only the generic form Alfuzosin Other Reaction(s): Intolerance, numbness, Unknown numbness Cefaclor Itching Other Reaction(s): Unknown Esomeprazole Itching Doxycycline Rash Levofloxacin Hives Morphine Other Hallucinations Nortriptyline Hives Other Reaction(s): Unknown unknown Penicillins Itching and Rash Other Reaction(s): blisters on feetThe [email or web address] [id number] History and physical note* Jennifer Arce MD - 10/26/2024 10:04 AM EDT Images from the original note were not included. OTOLARYNGOLOGY HEAD AND NECK SURGICAL HISTORY AND PHYSICAL NOTE History of Present Illness 78 year old male here today for surgery. Patient reports no changes since last appointment on 09/21/24 Surgical Attestation: I have personally reviewed the patient's medical history and performed the physical examination below immediately before the procedure. Medications, allergies, and pertinent laboratory and diagnostictests were also reviewed at this time. Surgery is still indicated: yes Consent reviewed and signed by patient/legal guardian: yes Operative site verified and marked (if applicable): left 10-point review of systems is otherwise negative. Past Medical History Medical History[1] Past Surgical History There is no previous surgical history on file. Family History Family History[2] Social History Social History Tobacco Use Smoking status: Never Passive exposure: Past Smokeless tobacco: Never Substance Use Topics Alcohol use: Not Currently Medications ceFAZolin, 2,000 mg, Intravenous, One Time Dose Allergies Allergies[3] Physical Exam BP 125/61 (BP Location: right arm) Pulse 67 Temp 97.4 F (36.3 C) (Oral) Resp 18 Ht 5' 10.5"(1.791 m) Wt 148 lb (67.1 kg) SpO2 94% BMI 20.94 kg/m General: Lying in bed NAD, conversant, A&Ox3 HEENT: Normocephalic and atraumatic without mass or lesion Respiratory: Equal inspiration and expiration without stridor Cardiovascular: Regular rate Oral Cavity: Mucous membranes moist Relevant Labs Temperature: [97.4 F (36.3 C)] 97.4 F (36.3 C) Heart Rate: [67] 67 Respiratory Rate: [18] 18 BP: (125)/(61) 125/61 Basic Metabolic Panel No lab values to display. No intake or output data in the 24 hours ending 10/26/24 1004 CBC/PT/INR No lab values to display. Imaging: CT neck reviewed Assessment and Plan Mr. Munoz is a 78 year old male - OR today for left parotidectomy Discussed with attending Robert Singh MD Hayley Baker, MD [1] No past medical history on file. [2] No family history on file. [3] Allergies Allergen Reactions Lansoprazole Diarrhea Other Reaction(s): Upset Stomach Only the generic form Alfuzosin Other Reaction(s): Intolerance, numbness, Unknown numbness Cefaclor Itching Other Reaction(s): Unknown Esomeprazole Itching Doxycycline Rash Levofloxacin Hives Morphine Other Hallucinations Nortriptyline Hives Other Reaction(s): Unknown unknown Penicillins Itching and Rash Other Reaction(s): blisters on feet Cosigned by Robert Singh MD at 10/26/2024 12:08 PM EDT documented in this [id number] Telephone encounter Note* Telephone Encounter - Berry Neumann RN - 10/15/2024 7:23 AM EDT Cardiac Risk Assessment scanned into [facility]. [id number] Miscellaneous Notes* Telephone Encounter - Berry Nuemann RN - 10/15/2024 7:23 AM EDT Cardiac Risk Assessment scanned into [facility]. documented in this [id number] Telephone encounter Note* Telephone Encounter - Berry Neumann RN - 10/13/2024 11:55 AM EDT Medical Records scanned into [facility]. [id number] Miscellaneous Notes* Telephone Encounter - Berry Neumann RN - 10/13/2024 11:55 AM EDT Medical Records scanned into [facility]. documented in this [id number] Evaluation note* PAT Call History - Chance Grande APRN-MOTOR EXPERT - 10/12/2024 12:17 PM EDT Telephone History Chance Munoz, [id number] 10/12/2024 78 year old HT: 70 inches WT: 141lbs Date of Surgery: 10/26/2024 Surgeon: Dr. Signh Type of Surgery: PAROTIDECTOMY HISTORY OF PRESENT ILLNESS: Chance Munoz is a 78 year old male patient who is being evaluated today for PAROTIDECTOMY. He has a h/o parotid mass. Currently denies fever and chills, new cough, SOB orCP. STOP-BANG Row Name 10/12/24 1614 History of sleep apnea? No Snoring No Tired/Fatigued No Observed Apnea No Pressure: Hypertension No BMI greater than 35 0 Age greater than 50 1 Neck circ greater than 40cm (15.75") Unable to Assess Gender male? 1 Score 2 EXERCISE CAPACITY: 4-10 mets. Patient states he can walk 3 blocks without difficulty. ALLERGIES: Lansoprazole, Alfuzosin, Cefaclor, Esomeprazole, Doxycycline, Levofloxacin, Morphine, Nortriptyline, and Penicillins PREVIOUS ANESTHETIC EXPERIENCES AND INTUBATION HISTORY: No previous anesthetic complication FAMILY HISTORY OF ANESTHETIC COMPLICATIONS: No PAST MEDICAL HISTORY: Medical History[1] PROBLEM LIST: Problem List[2] Past Medical History and Review of Systems Pulmonary (+) asthma Dental ROS (+) teeth problems missing Endo (+) diabetes mellitus type 2, hypothyroidism Comment: Thyroid nodule Neuro/Psych Comment: Intermittent headaches Cardiovascular (+) arrhythmia (PVC's and bradycardia), valvular problems/murmurs (mild ), hyperlipidemia (-) GONZALEZ, PND, orthopnea Comment: Patient follows with Dr. Monte (executive sales manager) at [facility]. Please see scanned media for last cardiology office visit on 05/18/2024, ECHO 06/15/2024, EKG and stress test. 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 CBC (last 3 years, up to 8 values) No lab values to display. BMP (last 3 years, up to 8 values) No lab values to display. Basic Metabolic Panel No lab values to display. PT/PTT/INR (last 3 years, up to 8 values) No lab values to display. Arterial Blood Gases None No result for BNP LFT's (last 3 years, up to 8 values) No lab values to display. Urinalysis No lab values to display. TESTS REVIEWED: CXRay: 02/27/2018 at [facility] FINDINGS: The cardiac silhouette is within normal limits. No focal consolidation is seen within the lungs. There is no large pleural effusion or pneumothorax. The bony structures of the chest are unremarkable as visualized. IMPRESSION: The extreme portion of the lung apices and lateral aspect of the left hemithorax is not included in the [id number] on this single portable film. No focal consolidation is seen within the lungs. EK02/27/2018 at [facility] Sinus rhythm Prolonged IA interval Left anterior fascicular block ECHO: 02/28/2018 at [facility] SUMMARY: 1. Left ventricle: Systolic function is normal by the biplane method of disks. The estimated ejection fraction is 66%. There are no regional wall motion abnormalities. 2. Right ventricle: The cavity size is normal. Systolic function is normal. 3. No significant valve disease. Stress test date: 03/19/2011 at [facility] CONCLUSIONS: - Exam indication: Ventricular Arrhythmia - The exercise stress echo was negative for ischemia at 98 % of MPHR (7.0 METS). - Left ventricular systolic function is normal. EF = 55 5% (visual est.) - Mild anterior mitral valve leaflet thickening with trivial MR. - Trivial-1+ TR. Unable to estimate RVSP. - Mild aortic sclerosis with no AI. - Trivial PI. - Ascending aorta is at the upper limits of normal. CURRENT MEDICATION LIST: No current outpatient medications on file. No current facility-administered medications for this visit. CURRENT MEDICATIONS: Aspirin: No NSAIDS: No Other Antiplatelet Medication: No Anticoagulants: No Steroids: No SGLT-2/GLP-1: No PATIENT MEDICATION INSTRUCTIONS: On the morning of your surgery, please take only the following medications, with a small sip of water: Proscar Flonase Synthroid Protonix Paxil Do not take any Aspirin after 10/18. Do not take any Ibuprofen, Aleve, Advil, or Motrin or any other NSAIDS after 10/22. May take over the counter Acetaminophen (Tylenol) as needed for pain Please hold all Vitamin E, [place] 3, fish oil and herbal supplements for 1 week prior to surgery DAY OF SURGERY NOTES: Please use this CHECKLIST to prepare for your surgery/procedure: ? Assume that any lab or testing done during your Pre-admission testing appointment is within normal limits unless otherwise contacted. ? Expect a call from [employer] one business day prior to surgery for surgery arrival time and location. ? Please plan to restart your medications the day after surgery unless otherwise explicitly instructed. ? Please contact your surgeon s/proceduralist s office for any surgical or recovery types of questions. ? CANCELLING YOUR SURGERY/PROCEDURE: If you get a cold, are not feeling well, or become , please call your surgeon s office as soon as possible. ? Refer to your Preparing for Your Surgery/Procedure booklet or [email or web address] if you have questions. Contact the Pre-Admission Testing department at [phone] or your surgeon's office with any questions that are not answered. ? Eating and drinking before surgery: Adult Patients: Per anesthesia's fasting protocol: you may have plain water (no additives) up to 2 hours prior to surgery arrival time. No food or any other type of liquids for at least 8 hours prior to surgery arrival time. A small sip of water with approved morning medications on the day of surgery is acceptable. If a patient with diabetes is concerned about low blood sugar while being NPO, they may have a small sip of clear juice (I.e. apple juice or Gatorade) no later than 2 hours prior to arrival time. Patient needs to alert his or her anesthesiologist if this occurs on the day of surgery. Enhanced Recovery After Surgery (ERAS), bariatric, and endoscopy/colonoscopy patients should follow their surgeon s/proceduralist s instructions for clear fluids prior to surgery. Pediatric Patients (under the age of 1212 years old): Patients are not to have solid food for 8 hours prior to coming for surgery. Patients can have formula or non-human milk (skim, 2%, whole, nut-milks, soy, etc.) 6 hours prior to coming for surgery. Patients can have breast milk up to 4 hours prior to coming for surgery. Patients can have clear liquids (water, flavored aden, Pedialyte) up to 2 hours prior to coming for surgery. ON THE DAY OF SURGERY: ? DO bring your ID, insurance card, medication list, and a small amount of almanza for filling prescriptions and any medical co-pays. ? Do NOT wear any jewelry, (including rings, earrings, or mouth, tongue, or body piercings). Metal jewelry could cause constriction, amputation, or ordonez. Loose or bulky things in your mouth can be unsafe and result in breathing problems. ? DO bring glasses if you wear contacts and other assistance items such as oxygen, inhaler, cane, walker, etc. ? Do NOT bring valuables, credit cards, or large amounts of almanza. ? Do NOT wear lotion or strong-smelling fragrance (perfume, cologne, cream or lotion). ? ARRANGE FOR A RIDE: If you are scheduled to go home the same day of surgery, a responsible adult MUST drive or accompany you home in a car, cab, shared ride service, or Metro-van. You will not be allowed to drive yourself home or travel home alone. Your surgery may be cancelled if you do not have a ride. A responsible adult must stay with you after surgery. Please call [facility] if you need transportation assistance or have concerns about going home [phone]. ? PEDIATRIC or ADOLESCENTS: Parents or a legal guardian must remain at the hospital during surgery. You will need to make childcare arrangements for your other small children to remain at home or bring an adult with you who can supervise them in the waiting area while you are with your child. Please bring legal guardianship papers with you if applicable. Patients who whose assigned sex at was female, and are starting puberty, will be tested for per hospital policy. ? SLEEP APNEA PATIENTS: Bring your sleep apnea machine and mask. ? PLEASE BE ON TIME. A late arrival may result in the cancellation/ delay of your surgery. Post-op Nausea and Vomiting: A risk of anesthesia is nausea and/or vomiting (PONV). Certain patients are at higher risk than others. Talk to your anesthesiologist about the plan to minimize this risk. In general, it is best to start with only ice chips or small sips of water, then progress to clear, non-alcoholic fluids. You do not have to eat if you do not feel like it; fluids are the most important in the first 24 hours after surgery. If you start to eat, try bananas, applesauce, plain toast, saltine crackers, or broth; avoid fried or fatty foods. Make sure to eat something about 15 minutes before taking any pain medications. Seek medical attention for any prolonged PONV and signs of dehydration. Patients whose assigned sex at was female, and are starting puberty or beyond, will be urine tested for per hospital policy. Thank you for choosing [facility]; it is our pleasure to care for you ABEL Smith Time Spent Performing this Telephone History: 41 [1] No past medical history on file. 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 Singh Type of Surgery: PAROTIDECTOMY HISTORY OF PRESENT ILLNESS: Chance Munoz is a 78 year old male patient who is being evaluated today for PAROTIDECTOMY. He has a h/o parotid mass. Currently denies fever and chills, new cough, SOB orCP. STOP-BANG Row Name 10/12/24 1614 History of sleep apnea? No Snoring No Tired/Fatigued No Observed Apnea No Pressure: Hypertension No BMI greater than 35 0 Age greater than 50 1 Neck circ greater than 40cm (15.75") Unable to Assess Gender male? 1 Score 2 EXERCISE CAPACITY: 4-10 mets. Patient states he can walk 3 blocks without difficulty. ALLERGIES: Lansoprazole, Alfuzosin, Cefaclor, Esomeprazole, Doxycycline, Levofloxacin, Morphine, Nortriptyline, and Penicillins PREVIOUS ANESTHETIC EXPERIENCES AND INTUBATION HISTORY: No previous anesthetic complication FAMILY HISTORY OF ANESTHETIC COMPLICATIONS: No PAST MEDICAL HISTORY: Medical History[1] PROBLEM LIST: Problem List[2] Past Medical History and Review of Systems Pulmonary (+) asthma Dental ROS (+) teeth problems missing Endo (+) diabetes mellitus type 2, hypothyroidism Comment: Thyroid nodule Neuro/Psych Comment: Intermittent headaches Cardiovascular (+) hyperlipidemia (-) GONZALEZ, PND, orthopnea GI/Hepatic/Renal Comment: S/p cholecystectomy Hx of testicular mass--s/p left orchiectomy 2016 (benign) BPH--s/p TURP Heme/Other Comment: myelodysplastic syndrome treated with erythropoietin Other ROS: Parotid mass S/p right chest wall tumor excision (benign) S/p T&A PAST SURGICAL HISTORY: Surgical History[3] SOCIAL HISTORY: Social History[4] PAIN ASSESSMENT: Severity: 0 Location: N/A LABORATORY DATA: Type & Screen (Last result in the past 30 days) No lab values to display. CBC (last 3 years, up to 8 values) No lab values to display. BMP (last 3 years, up to 8 values) No lab values to display. Basic Metabolic Panel No lab values to display. PT/PTT/INR (last 3 years, up to 8 values) No lab values to display. Arterial Blood Gases None No result for BNP LFT's (last 3 years, up to 8 values) No lab values to display. Urinalysis No lab values to display. TESTS REVIEWED: CXRay: 02/27/2018 at [facility] FINDINGS: The cardiac silhouette is within normal limits. No focal consolidation is seen within the lungs. There is no large pleural effusion or pneumothorax. The bony structures of the chest are unremarkable as visualized. IMPRESSION: The extreme portion of the lung apices and lateral aspect of the left hemithorax is not included in the [id number] on this single portable film. No focal consolidation is seen within the lungs. EK02/27/2018 at [facility] Sinus rhythm Prolonged IA interval Left anterior fascicular block ECHO: 02/28/2018 at [facility] SUMMARY: 1. Left ventricle: Systolic function is normal by the biplane method of disks. The estimated ejection fraction is 66%. There are no regional wall motion abnormalities. 2. Right ventricle: The cavity size is normal. Systolic function is normal. 3. No significant valve disease. Stress test date: 03/19/2011 at [facility] CONCLUSIONS: - Exam indication: Ventricular Arrhythmia - The exercise stress echo was negative for ischemia at 98 % of MPHR (7.0 METS). - Left ventricular systolic function is normal. EF = 55 5% (visual est.) - Mild anterior mitral valve leaflet thickening with trivial MR. - Trivial-1+ TR. Unable to estimate RVSP. - Mild aortic sclerosis with no AI. - Trivial PI. - Ascending aorta is at the upper limits of normal. CURRENT MEDICATION LIST: No current outpatient medications on file. No current facility-administered medications for this visit. CURRENT MEDICATIONS: Aspirin: No NSAIDS: No Other Antiplatelet Medication: No Anticoagulants: No Steroids: No SGLT-2/GLP-1: No PATIENT MEDICATION INSTRUCTIONS: On the morning of your surgery, please take only the following medications, with a small sip of water: Proscar Flonase Synthroid Protonix Paxil Do not take any Aspirin after 10/18. Do not take any Ibuprofen, Aleve, Advil, or Motrin or any other NSAIDS after 10/22. May take over the counter Acetaminophen (Tylenol) as needed for pain Please hold all Vitamin E, [place] 3, fish oil and herbal supplements for 1 week prior to surgery DAY OF SURGERY NOTES: Please use this CHECKLIST to prepare for your surgery/procedure: ? Assume that any lab or testing done during your Pre-admission testing appointment is within normal limits unless otherwise contacted. ? Expect a call from [facility] one business day prior to surgery for surgery arrival time and location. ? Please plan to restart your medications the day after surgery unless otherwise explicitly instructed. ? Please contact your surgeon s/proceduralist s office for any surgical or recovery types of questions. ? CANCELLING YOUR SURGERY/PROCEDURE: If you get a cold, are not feeling well, or become , please call your surgeon s office as soon as possible. ? Refer to your Preparing for Your Surgery/Procedure booklet or [email or web address] if you have questions. Contact the Pre-Admission Testing department at [phone] or your surgeon's office with any questions that are not answered. ? Eating and drinking before surgery: Adult Patients: Per anesthesia's fasting protocol: you may have plain water (no additives) up to 2 hours prior to surgery arrival time. No food or any other type of liquids for at least 8 hours prior to surgery arrival time. A small sip of water with approved morning medications on the day of surgery is acceptable. If a patient with diabetes is concerned about low blood sugar while being NPO, they may have a small sip of clear juice (I.e. apple juice or Gatorade) no later than 2 hours prior to arrival time. Patient needs to alert his or her anesthesiologist if this occurs on the day of surgery. Enhanced Recovery After Surgery (ERAS), bariatric, and endoscopy/colonoscopy patients should follow their surgeon s/proceduralist s instructions for clear fluids prior to surgery. Pediatric Patients (under the age of 1212 years old): Patients are not to have solid food for 8 hours prior to coming for surgery. Patients can have infant formula or non-human milk (skim, 2%, whole, nut-milks, soy, etc.) 6 hours prior to coming for surgery. Patients can have breast milk up to 4 hours prior to coming for surgery. Patients can have clear liquids (water, flavored aden, Pedialyte) up to 2 hours prior to coming for surgery. ON THE DAY OF SURGERY: ? DO bring your ID, insurance card, medication list, and a small amount of almanza for filling prescriptions and any medical co-pays. ? Do NOT wear any jewelry, (including rings, earrings, or mouth, tongue, or body piercings). Metal jewelry could cause constriction, amputation, or ordonez. Loose or bulky things in your mouth can be unsafe and result in breathing problems. ? DO bring glasses if you wear contacts and other assistance items such as oxygen, inhaler, cane, walker, etc. ? Do NOT bring valuables, credit cards, or large amounts of almanza. ? Do NOT wear lotion or strong-smelling fragrance (perfume, cologne, cream or lotion). ? ARRANGE FOR A RIDE: If you are scheduled to go home the same day of surgery, a responsible adult MUST drive or accompany you home in a car, cab, shared ride service, or Metro-van. You will not be allowed to drive yourself home or travel home alone. Your surgery may be cancelled if you do not have a ride. A responsible adult must stay with you after surgery. Please call [facility] if you need transportation assistance or have concerns about going home [phone]. ? PEDIATRIC or ADOLESCENTS: Parents or a legal guardian must remain at the hospital during surgery. You will need to make childcare arrangements for your other small children to remain at home or bring an adult with you who can supervise them in the waiting area while you are with your child. Please bring legal guardianship papers with you if applicable. Patients who whose assigned sex at was female, and are starting puberty, will be tested for per hospital policy. ? SLEEP APNEA PATIENTS: Bring your sleep apnea machine and mask. ? PLEASE BE ON TIME. A late arrival may result in the cancellation/ delay of your surgery. Post-op Nausea and Vomiting: A risk of anesthesia is nausea and/or vomiting (PONV). Certain patients are at higher risk than others. Talk to your anesthesiologist about the plan to minimize this risk. In general, it is best to start with only ice chips or small sips of water, then progress to clear, non-alcoholic fluids. You do not have to eat if you do not feel like it; fluids are the most important in the first 24 hours after surgery. If you start to eat, try bananas, applesauce, plain toast, saltine crackers, or broth; avoid fried or fatty foods. Make sure to eat something about 15 minutes before taking any pain medications. Seek medical attention for any prolonged PONV and signs of dehydration. Patients whose assigned sex at was female, and are starting puberty or beyond, will be urine tested for per hospital policy. Thank you for choosing [facility]; it is our pleasure to care for you ABEL Smith Time Spent Performing this Telephone History: 41 [1] No past medical history on file. 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 [4] Social History Socioeconomic History Marital status: Unknown Tobacco Use Smoking status: Never Passive exposure: Past Smokeless tobacco: Never documented in this [id number] Miscellaneous Notes* PAT Call History - Chance Grande APRN-CNP - 10/12/2024 12:17 PM EDT Telephone History Chance Munoz, [id number] 10/12/2024 78 year old HT: 70 inches WT: 141lbs Date of Surgery: 10/26/2024 Surgeon: Dr. Singh Type of Surgery: PAROTIDECTOMY HISTORY OF PRESENT ILLNESS: Chance Munoz is a 78 year old male patient who is being evaluated today for PAROTIDECTOMY. He has a h/o parotid mass. Currently denies fever and chills, new cough, SOB orCP. STOP-BANG Row Name 10/12/24 1614 History of sleep apnea? No Snoring No Tired/Fatigued No Observed Apnea No Pressure: Hypertension No BMI greater than 35 0 Age greater than 50 1 Neck circ greater than 40cm (15.75") Unable to Assess Gender male? 1 Score 2 EXERCISE CAPACITY: 4-10 mets. Patient states he can walk 3 blocks without difficulty. ALLERGIES: Lansoprazole, Alfuzosin, Cefaclor, Esomeprazole, Doxycycline, Levofloxacin, Morphine, Nortriptyline, and Penicillins PREVIOUS ANESTHETIC EXPERIENCES AND INTUBATION HISTORY: No previous anesthetic complication FAMILY HISTORY OF ANESTHETIC COMPLICATIONS: No PAST MEDICAL HISTORY: Medical History[1] PROBLEM LIST: Problem List[2] Past Medical History and Review of Systems Pulmonary (+) asthma Dental ROS (+) teeth problems missing Endo (+) diabetes mellitus type 2, hypothyroidism Comment: Thyroid nodule Neuro/Psych Comment: Intermittent headaches Cardiovascular (+) arrhythmia (PVC's and bradycardia), valvular problems/murmurs (mild ), hyperlipidemia (-) GONZALEZ, PND, orthopnea Comment: Patient follows with Dr. Monte (executive sales manager) at [facility]SH. Please see scanned media for last cardiology office visit on 05/18/2024, ECHO 06/15/2024, EKG and stress test. GI/Hepatic/Renal Comment: S/p cholecystectomy 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) BPH--s/p TURP Heme/Other Comment: myelodysplastic syndrome treated with erythropoietin Other ROS: Parotid mass S/p right chest wall tumor excision (benign) S/p T&A PAST SURGICAL HISTORY: Surgical History[3] SOCIAL HISTORY: Social History[4] PAIN ASSESSMENT: Severity: 0 Location: N/A LABORATORY DATA: Type & Screen (Last result in the past 30 days) No lab values to display. CBC (last 3 years, up to 8 values) No lab values to display. BMP (last 3 years, up to 8 values) No lab values to display. Basic Metabolic Panel No lab values to display. PT/PTT/INR (last 3 years, up to 8 values) No lab values to display. Arterial Blood Gases None No result for BNP LFT's (last 3 years, up to 8 values) No lab values to display. Urinalysis No lab values to display. TESTS REVIEWED: CXRay: 02/27/2018 at [facility] FINDINGS: The cardiac silhouette is within normal limits. No focal consolidation is seen within the lungs. There is no large pleural effusion or pneumothorax. The bony structures of the chest are unremarkable as visualized. IMPRESSION: The extreme portion of the lung apices and lateral aspect of the left hemithorax is not included in the [id number] on this single portable film. No focal consolidation is seen within the lungs. [facility] Sinus [facility] Prolonged IA interval Left anterior fascicular block ECHO: 02/28/2018 at [facility] SUMMARY: 1. Left ventricle: Systolic function is normal by the biplane method of disks. The estimated ejection fraction is 66%. There are no regional wall motion abnormalities. 2. Right ventricle: The cavity size is normal. Systolic function is normal. 3. No significant valve disease. Stress test date: 03/19/2011 at [facility] CONCLUSIONS: - Exam indication: Ventricular Arrhythmia - The exercise stress echo was negative for ischemia at 98 % of MPHR (7.0 METS). - Left ventricular systolic function is normal. EF = 55 5% (visual est.) - Mild anterior mitral valve leaflet thickening with trivial MR. - Trivial-1+ TR. Unable to estimate RVSP. - Mild aortic sclerosis with no AI. - Trivial PI. - Ascending aorta is at the upper limits of normal. CURRENT MEDICATION LIST: No current outpatient medications on file. No current facility-administered medications for this visit. CURRENT MEDICATIONS: Aspirin: No NSAIDS: No Other Antiplatelet Medication: No Anticoagulants: No Steroids: No SGLT-2/GLP-1: No PATIENT MEDICATION INSTRUCTIONS: On the morning of your surgery, please take only the following medications, with a small sip of water: Proscar Flonase Synthroid Protonix Paxil Do not take any Aspirin after 10/18. Do not take any Ibuprofen, Aleve, Advil, or Motrin or any other NSAIDS after 10/22. May take over the counter Acetaminophen (Tylenol) as needed for pain Please hold all Vitamin E, [place] 3, fish oil and herbal supplements for 1 week prior to surgery DAY OF SURGERY NOTES: Please use this CHECKLIST to prepare for your surgery/procedure: ? Assume that any lab or testing done during your Pre-admission testing appointment is within normal limits unless otherwise contacted. ? Expect a call from [employer] one business day prior to surgery for surgery arrival time and location. ? Please plan to restart your medications the day after surgery unless otherwise explicitly instructed. ? Please contact your surgeon s/proceduralist s office for any surgical or recovery types of questions. ? CANCELLING YOUR SURGERY/PROCEDURE: If you get a cold, are not feeling well, or become , please call your surgeon s office as soon as possible. ? Refer to your Preparing for Your Surgery/Procedure booklet or [email or web address] if you have questions. Contact the Pre-Admission Testing department at [phone] or your surgeon's office with any questions that are not answered. ? Eating and drinking before surgery: Adult Patients: Per anesthesia's fasting protocol: you may have plain water (no additives) up to 2 hours prior to surgery arrival time. No food or any other type of liquids for at least 8 hours prior to surgery arrival time. A small sip of water with approved morning medications on the day of surgery is acceptable. If a patient with diabetes is concerned about low blood sugar while being NPO, they may have a small sip of clear juice (I.e. apple juice or Gatorade) no later than 2 hours prior to arrival time. Patient needs to alert his or her anesthesiologist if this occurs on the day of surgery. Enhanced Recovery After Surgery (ERAS), bariatric, and endoscopy/colonoscopy patients should follow their surgeon s/proceduralist s instructions for clear fluids prior to surgery. Pediatric Patients (under the age of 1212 years old): Patients are not to have solid food for 8 hours prior to coming for surgery. Patients can have formula or non-human milk (skim, 2%, whole, nut-milks, soy, etc.) 6 hours prior to coming for surgery. Patients can have breast milk up to 4 hours prior to coming for surgery. Patients can have clear liquids (water, flavored aden, Pedialyte) up to 2 hours prior to coming for surgery. ON THE DAY OF SURGERY: ? DO bring your ID, insurance card, medication list, and a small amount of almanza for filling prescriptions and any medical co-pays. ? Do NOT wear any jewelry, (including rings, earrings, or mouth, tongue, or body piercings). Metal jewelry could cause constriction, amputation, or ordonez. Loose or bulky things in your mouth can be unsafe and result in breathing problems. ? DO bring glasses if you wear contacts and other assistance items such as oxygen, inhaler, cane, walker, etc. ? Do NOT bring valuables, credit cards, or large amounts of almanza. ? Do NOT wear lotion or strong-smelling fragrance (perfume, cologne, cream or lotion). ? ARRANGE FOR A RIDE: If you are scheduled to go home the same day of surgery, a responsible adult MUST drive or accompany you home in a car, cab, shared ride service, or Metro-van. You will not be allowed to drive yourself home or travel home alone. Your surgery may be cancelled if you do not have a ride. A responsible adult must stay with you after surgery. Please call [email or web address] if you need transportation assistance or have concerns about going home [phone]. ? PEDIATRIC or ADOLESCENTS: Parents or a legal guardian must remain at the hospital during surgery. You will need to make childcare arrangements for your other small children to remain at home or bring an adult with you who can supervise them in the waiting area while you are with your child. Please bring legal guardianship papers with you if applicable. Patients who whose assigned sex at was female, and are starting puberty, will be tested for per hospital policy. ? SLEEP APNEA PATIENTS: Bring your sleep apnea machine and mask. ? PLEASE BE ON TIME. A late arrival may result in the cancellation/ delay of your surgery. Post-op Nausea and Vomiting: A risk of anesthesia is nausea and/or vomiting (PONV). Certain patients are at higher risk than others. Talk to your anesthesiologist about the plan to minimize this risk. In general, it is best to start with only ice chips or small sips of water, then progress to clear, non-alcoholic fluids. You do not have to eat if you do not feel like it; fluids are the most important in the first 24 hours after surgery. If you start to eat, try bananas, applesauce, plain toast, saltine crackers, or broth; avoid fried or fatty foods. Make sure to eat something about 15 minutes before taking any pain medications. Seek medical attention for any prolonged PONV and signs of dehydration. Patients whose assigned sex at was female, and are starting puberty or beyond, will be urine tested for per hospital policy. Thank you for choosing [facility] [employer] [facility] [facility]; it is our pleasure to care for you ABEL Smith Time Spent Performing this Telephone History: 41 [1] No past medical history on file. 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 [4] Social History Socioeconomic History Marital status: Unknown Tobacco Use Smoking status: Never Passive exposure: Past Smokeless tobacco: Never documented in this [id number] [facility] 10-12-2024 History of Present illness Narrative* Santiago Cottrell LPN - 10/12/2024 8:55 AM EDT Patient presents with: Imm/Inj Pt is identified by name and birthdate: Yes. Allergies and medications reviewed. Latex allergy? No. Does this patient have: Unplanned weight loss or gain of greater than 10 pounds, or a change of appetite over the last year? No Does the patient have any concerns about safety in the home/falls? Not at risk for falls Has the patient fallen in the past year? No Does the patient have difficulty performing or completing routine daily living activities? No Does this patient have concerns about personal safety? No Is patient having pain? Pain: No=0 (pain 0 on a scale of 0-10). Health Maintenance: Reviewed and updated. Does patient have MyChart access or Caregiver proxy: yes Pt/Caregiver willingness and readiness to learn assessed: Yes. Barriers: none aranesp injection administered,left arm, tolerated well, no immediate adverse reactions noted. Santiago Cottrell LPN documented in this encounterOhio[facility]25 Telephone encounter Note * Telephone Encounter - Bertha Joshi - 10/11/2024 3:01 PM EDT Disregard patient is keeping 10/26/24 for surgery [id number] Miscellaneous Notes* Telephone Encounter - Bertha Joshi - 10/11/2024 3:01 PM EDT Disregard patient is keeping 10/26/24 for surgery * Telephone Encounter - Bertha Joshi - 10/11/2024 12:42 PM EDT Patient spoke to PAT and wanted to cancel surgery with Baldev on 10/26. I called pt to follow up. He does want to still cancel surgery because if his secondary insurance not paying for surgery and also because his daughter is unable to take care of him, she is a teacher and can't take off until Dec. Patient wants to re-schedule surgery until nic break the third week of Dec. documented in this [id number] Telephone encounter Note* Telephone Encounter - Bertha Joshi - 10/11/2024 12:42 PM EDT Patient spoke to PAT and wanted to cancel surgery with Baldev on 10/26. I called pt to follow up. He does want to still cancel surgery because if his secondary insurance not paying for surgery and also because his daughter is unable to take care of him, she is a teacher and can't take off until Dec. Patient wants to re-schedule surgery until nic break the third week of Dec. [id number] Telephone encounter Note* Telephone Encounter - Robert Singh MD - 09/21/2024 4:30 PM EDT I spoke with Ed and gave him the results of his biopsy. The sample was still hypocellular with proteinaceous material which likely represents a cyst like a warthin's tumor. He would like to have it removed so I will place the surgery order and have someone reach out to schedule [facility] Work Phone: [phone] Miscellaneous Notes* Telephone Encounter - Robert Singh MD - 09/21/2024 4:30 PM EDT I spoke with Ed and gave him the results of his biopsy. The sample was still hypocellular with proteinaceous material which likely represents a cyst like a warthin's tumor. He would like to have it removed so I will place the surgery order and have someone reach out to schedule documented in this [id number] [facility] History of Present illness Narrative* Santiago Cottrell LPN - 09/21/2024 9:00 AM EDT Aranesp injection administered, right arm, tolerated well, no immediate adverse reactions noted. See OV notes Santiago Cottrell LPN documented in this encounterOhiohealth [facility]07-29-2025 [facility] History of Present illness Narrative* Tanna Shen - 09/21/2024 8:36 AM EDT Oncologic problem(s): 1) MDS. HPI: The patient is a 78 year old male with PMHx of T2DM, CAD, asthma, hypothyroidism, thyroid nodule, BPH, DDD, testicular mass s/p orchiectomy 2016 benign, GERD, colon polyps and pancytopenia. Diagnosed with iron deficiency anemia initially dx in 2020. (Records from [facility] scanned). Has received IV iron in the past, unable to tolerate PO iron supplements due to GI upset. Last received Injectafer x2 at [facility] 03/2023. Per initial consultation: He states "I've been anemic since I got out of the service in ." Follows with Dr. Jane LAMBERT. Has had complete GI workup. Past 3 years - two EGDs, colonoscopies, occult stool, without bleeding. Denies fevers. Feels chills in the evenings for last several years. No recent illnesses or infections. No lumps or bumps. Notes diffuse pruritic rash "all over" about the last 3-4 weeks. Mostly extremities, was told he was allergic to mold but allergy test negative. Started back on allergy med last night. Tries not to take too frequently due to prostate issues. Rash showed up Nov just after receiving RSV vaccine. Serum sickness rxn, joint swelling. Bilateral lower extremity neuropathy improved with IV iron - gettingworse now. Possible mold exposure recently basement flooded, had a box that he missed in clean up [place], pesticide exposure. [place] used to spray (now banned) Used respirator at the time. 2017 retired from [employer], 30+ years, possible chemical exposures. [employer] for 300+ days -, possible agent orange exposure. He states was used where he was stationed 3 months prior to his arrival. No known family hx of cancer. Sister with syncopal episodes, mother guillain-barre." Current therapy: 1) BETY with Aranesp. Presents for ongoing hematologic management. Interim history: Fatigued has been getting worse over the last few months. He still enjoys doing work around the home. Noticed lump just above the angle of the mandible on the left. Larger in last 4- 6 weeks. Both ears feel full. Saw Dr. Sauceda. Biopsy ordered at [place]. Just had another bx on Friday with Dr Singh.Notes some soreness following procedure. No trouble swallowing. No results back yet. No fever, night sweats or weight loss. PAST MEDICAL HISTORY Diagnosis Date Acute gastritis without mention of hemorrhage Anemia 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) 07/07/2023 Bladder neck obstruction 03/11/2005 Bronchiectasis ([facility]) Depression Diverticulosis of colon (without mention of hemorrhage) Elevated bilirubin Esophagitis, unspecified GERD (gastroesophageal reflux disease) hiatal hernia Hypothyroid IBS (irritable bowel syndrome) Impaired fasting glucose MDS (myelodysplastic syndrome), low grade (HCC) 07/07/2023 Myalgia and myositis, unspecified Pancytopenia ([facility]) Premature ventricular contractions Right upper lobe pulmonary infiltrate PAST SURGICAL HISTORY Procedure Laterality Date COLONOSCOPY FLX DX W/COLLJ SPEC WHEN PFRMD 01/28/05 Colonoscopy COLSC FLX W/RMVL OF TUMOR POLYP LESION SNARE TQ 04/29/2016 EGD TRANSORAL BIOPSY SINGLE/MULTIPLE 04/29/2016 ESOPHAGOGASTRODUODENOSCOPY TRANSORAL DIAGNOSTIC 01/28/05 EGD ORCHIECTOMY SIMPLE Left 12/2015 PAST SURGICAL HISTORY OF 2007 PVP prostate PAST SURGICAL HISTORY OF 07/03/1997 chest wall tumor- benign PAST SURGICAL HISTORY OF 02/12/01 gall bladder REMOVE TONSILS AND ADENOIDS; AGE 12 OVER ALLERGIES Allergen Reactions Prevacid [Lansopraz* Diarrhea Only the generic form Ceclor [Cefaclor] Itching Contact Metal Agent Rash Doxycycline Rash Nexium [Esomeprazol* Itching Nortriptyline unknown Penicillins Itching Rsv Vac, Pref A And* Swelling Uroxatral [Alfuzosi* Intolerance numbness Current Outpatient Medications Medication Sig vit C,S-Vn-yvzyy-lutein-zeaxan (PRESERVISION AREDS-2) 250-90-40-1 mg Take 1 capsule by mouth two times a day with meals. fluticasone (FLONASE ALLERGY RELIEF) 50 mcg/actuation nasal spray Use 1 [place] in each nostril as needed. polyethylene glycol 3350 17 gram packet Take 17 g by mouth once daily as needed. Dissolve dose in 4- 8 ounces of liquid and take as directed. albuterol sulfate 90 mcg/actuation breath activated powder inhaler Inhale 2 Puffs as instructed as needed. budesonide-formoterol (SYMBICORT) 160-4.5 mcg/actuation inhaler Inhale 2 Puffs as instructed two times a day. tamsulosin (FLOMAX) 0.4 mg Take 0.4 mg by mouth daily at bedtime. buPROPion XL (WELLBUTRIN XL) 150 mg 24 hr tablet Take 150 mg by mouth once daily. levothyroxine (SYNTHROID) 88 mcg tablet Take 88 mcg by mouth daily before breakfast. finasteride 5 mg tablet Take 1 tablet by mouth once daily. paroxetine (PAXIL) 20 mg ORAL tablet Take 1 tablet by mouth once daily. calcium-vitamin D3-vitamin K (CITRACAL-D3 SOFT CHEW) 500 mg-1,000 unit-40 mcg chew Take 2 tablets by mouth once daily. Lactobacillus acidophilus 10 billion cell cap Take 1 capsule by mouth once daily. No current facility-administered medications for this visit. Facility-Administered Medications Ordered in Other Visits Medication Dose Route Frequency darbepoetin darrel in polysorbat 300 mcg injection (ARANESP) 300 mcg SUBCUTANEOUS ONCE NaCl 0.9% iv infusion 500-999 mL/hr INTRAVENOUS PRN diphenhydrAMINE 50 mg injection (BENADRYL) 50 mg INTRAVENOUS PRN hydrocortisone sodium succinate (PF) 100 mg injection (Solu-CORTEF) 100 mg INTRAVENOUS PRN EPINEPHrine HCl (PF) 1 mg/mL (1 mL) 0.3 mg injection 0.3 mg INTRAMUSCULAR PRN Social History Tobacco Use Smoking status: Never Smokeless tobacco: Never Vaping Use Vaping status: Never Used Substance Use Topics Alcohol use: No Drug use: No Family History Problem Relation Age of Onset Hypertension Mother Heart Mother not CAD, details unknown Diabetes Father age 57 Heart Father pacemaker, CAD other (other) Sister anemia Heart Sister Arthritis Sister Colon Cancer Other none Prostate Cancer Other none Complete review of systems otherwise negative except as noted above. PHYSICAL EXAM: Vitals: Blood pressure 95/52, pulse 60, temperature 36.3 C (97.4 F), temperature source Temporal, weight 69.4 kg (153 lb), SpO2 97%. Well-appearing and in no acute distress. EYES: Sclerae are anicteric bilaterally. 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 -IPSS-R 2 (Normal cytogenetics and blasts >2-<5%); Low risk. -H/O AVMs and previous TANNER. - more definitive therapy including possible azacitidine should he develop neutropenia, significantthrombocytopenia or other indication for such therapy. -Continues getting a very nice palliative effect with darbepoetin. Has not required blood transfusion since starting therapy. - Mild thrombocytopenia that has been stable. He has no bleeding issues - He has new unexplained lymphadenopathy - initial bx was inconclusive. Had second on Friday, no path or results at this time. No constitutional symptoms. Plan: -Okay for Aranesp today. -Hgb parameter at 11 g/dL. -Continue every 3 week CBC/Possible Aranesp, has required injection about every other -Monitor iron and hematinics every 3 months -OV in 3 months with scheduled injection - await path from bx last week. Advised to call with any questions or concerns. Tanna Shen APRN.MOTOR EXPERT I spent a total of 30 minutes on the date of the service which included preparing to see the patient, [id number] patient care, completing clinical documentation, obtaining and/or reviewing separately obtained history, performing a medically appropriate examination, and counseling and educating the patient/family/caregiver. Portions of this note including HPI, ROS, impression/plan may have been copied forward as to provide important historical information essential in contributing to medical decision making. Documentation has been reviewed and edited as necessary to support clinical decision making for today's visit and to reflect my own independent evaluation of this patient. documented in this encounterOhio[facility] History of Present illness Narrative* Robert Singh MD - 09/17/2024 10:44 AM EDT CC: Chief Complaint Patient presents with New patient, to establish relationship Since last November has had a mass/lump on left side of face HPI: Chance Munoz is a 78 year old male referred by Dr. Melara from [place] for evaluation of a left-side parotid mass, present since November. Patient feels like it's grown, but only a small amount. No facial weakness or skin involvement. No history of similar problems. Minor tenderness and painon touch, which radiates to the ear. Patient did have a scan for it. It's not debilitating, but it does bother him. He's had a needle biopsy, which was inconclusive, but notes the mass went down significantly after the procedure. Medical History[1] Surgical History[2] Allergies Patient has no allergy information on record. Medications No current outpatient medications on file. No current facility-administered medications for this visit. Family History The patient's family history is not on file.. Social History: Social History[3] Review of Systems - as per HPI, otherwise the balance of 10 systems is negative Physical Exam Vitals: 09/17/24 1045 BP: 110/59 Pulse: 64 Temp: 98.9 F (37.2 C) SpO2: 97% General apperance: WN/WD adult in no apparent distress, sitting in a chair Ability to communicate: normal voice without hoarseness Head and Face: Atraumatic, normocephalic; skin with no masses or lesions; sinuses nontender to palpation, face symmetric with normal movement Salivary Glands: 1-1.5 cm mobile mass left anterior tail of parotid. Ears:External ears are intact without any lesions or masses. Eyes: EOM Intact, sclera anicteric, no conjunctival injection. Nose: External nose midline Oral Cavity: Lips, gums, gingiva are normal; the floor of mouth and tongue are soft w/out lesions. Tongue protrusion is midline and non-tethered. Oropharynx: the soft palate, tonsils, and lateral pharyngeal pruett are without lesions or masses; Neck: no LAD CV: No clubbing/cyanosis/edema in hands Respiration: Breathing comfortably, no stridor or stertor Neuro: A&Ox3, Cranial nerves 2-12 intact and symmetric. Normal affect. Procedure: Ultrasound guided biopsy Indication: Parotid mass Anesthetic: 1% lidocaine with epinephrine Details: Used 25 gauge needle and ultrasound. Aspirated the mass. Made 4 passes. Mass was fluid-filled; after aspiration, it was quite a bit smaller. Assessment/Recommendations: Chance Munoz is a 78 year old male who presents today for: 1. Parotid mass - Patient wants the mass removed due to the pain and discomfort. 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 - Discussed risks and benefits. Patient is on board. All medical record entries made by the scribe were at my direction and personally dictated by me. Lorenzo reviewed and edited the record and confirm that the note above accurately reflects all work, treatment, procedures, and medical decision making performed by me. Robert Singh MD [1] No past medical history on file. [2] No past surgical history on file. [3] Social History Socioeconomic History Marital status: Unknown Tobacco Use Smoking status: Never Passive exposure: Past Smokeless tobacco: Never documented in this [id number] NoteHNO ID: [id number] Author: BELKYS BARRIOS LPN Service: ? Author Type: LICENSED NURSE Type: Progress Notes Filed: 08/31/2024 08:49 Note Text: Hgb 11.3, injection deferred. [facility] History of Present illness Narrative* Belkys Barrios LPN - 08/31/2024 8:47 AM EDT Hgb 11.3, injection deferred. Belkys Barrios LPN * Parul Jordan LPN - 08/31/2024 8:39 AM EDT Kayla documented in this encounterOhiohealth [facility]07-08-2025 NoteHNO ID: [id number] Author: PARUL JORDAN LPN Service: ? Author Type: LICENSED NURSE Type: Progress Notes Filed: 08/31/2024 08:54 Note Text: [facility]07-01-2025 Telephone encounter Note* Telephone Encounter - Bertha Joshi - 08/24/2024 4:21 PM EDT Heladio goldman. I scheduled this patient from [place] for 09/01 because he absolutely could not do the 8th. Fingerscrossed, patient is aware there is a chance he will be r/s but he is ok with that. Referral Scanned in Media. [id number] Miscellaneous Notes* Telephone Encounter - Bertha Joshi - 08/24/2024 4:21 PM EDT Heladio goldman. I scheduled this patient from [place] for 09/01 because he absolutely could not do the 8th. Fingerscrossed, patient is aware there is a chance he will be r/s but he is ok with that. Referral Scanned in Media. documented in this [id number] NoteHNO ID: [id number] Author: PARUL JORDAN LPN Service: ? Author Type: LICENSED NURSE Type: Progress Notes Filed: 08/11/2024 09:47 Note Text: Patient here for injection of Aranesp. Given SQ in left arm. Patient tolerated well. Parul Jordan [facility]06-18-2025 History of Present illness Narrative* Parul Jordan LPN - 08/11/2024 9:09 AM EDT Patient here for injection of Aranesp. Given SQ in left arm. Patient tolerated well. Parul Jordan LPN documented in this encounterOhiohealth Arthur [facility]05-28-2025 NoteHNO ID: [id number] Author: PARUL JORDAN LPN Service: ? Author Type: LICENSED NURSE Type: Progress Notes Filed: 07/21/2024 10:06 Note Text: Aranesp injection deferred, treatment parameter not met. Hgb 11.8. [facility] History of Present illness Narrative* Parul Jordan LPN - 07/21/2024 8:59 AM EDT Aranesp injection deferred, treatment parameter not met. Hgb 11.8. Parul Jordan LPN documented in this encounterOhiohealth Arthur [facility]05-28-2025 Note. MICRO - Microbiology PROCEDURE: Culture Body Fluid with Gram Stain [*1] SOURCE: Body Fluid, BODY SITE: Miscellaneous COLLECTED DATE/TIME: 07/14/2024 11:33 EDT RECEIVED DATE/TIME: 07/14/2024 14:15 EDT START DATE/TIME: 07/14/2024 14:17 EDT FREE TEXT SOURCE: parotid fluid / neck mass FINAL REPORTS Final Report [] Verified Date/Time/Personnel: 07/21/2024 07:04 EDT No aerobes or anaerobes isolated at 7 days. PRELIMINARY REPORTS Preliminary Report [] Verified Date/Time/Personnel: 07/15/2024 09:22 EDT No growth to date Preliminary Report [] Verified Date/Time/Personnel: 07/14/2024 15:59 EDT Culture has been received in lab and is no growth to date. Routine cultures are held for 5 days. STAINS GS [] Verified Date/Time/Personnel: 07/14/2024 14:59 EDT Unsedimented Rare Polymorphonuclear cells No organisms seen. Performing Locations *1: This test was performed at: [address], [facility] , [facility]05-21-2025 NoteORIGINAL PROCEDURE: UTS guided BIOPSY/aspiration left parotid mass NEEDLE GUIDANCE 07/14/2024 HISTORY: ORDERING SYSTEM PROVIDED HISTORY: Reason for Exam: MASS TECHNIQUE: Maximum sterile barrier technique including hand hygiene, skin prep and sterile ultrasound technique utilized for procedure. Sterile ultrasound technique also utilized for procedure. Following informed consent, pause a confirm/time-out and ultrasound-guided puncture site selection, skin was prepped and draped in sterile fashion. 2% lidocaine without epinephrine for local anesthesia. Ultrasound-guided access of hypoechoic left pre-auricular/parotid mass was achieved. 1-2 mL debris filled fluid aspirated. Specimen sent for laboratory evaluation. No residual mass or complication suggested. Patient tolerated procedure well. CONTRAST: None SEDATION: None FLUOROSCOPY DOSE AND TYPE: Radiation Exposure Index: Kerma mGy, none-ultrasound guidance for procedure DESCRIPTION OF PROCEDURE: Informed consent was obtained after a detailed explanation of the procedure including risks, benefits, and alternatives. [place] protocol was observed. Sterile gowns, masks, hats and gloves utilized for maximal sterile barrier. As above in technique section FINDINGS: Pre and intraprocedural images demonstrate smoothly marginated cystic mass left parotid gland corresponding to patient localized area palpable abnormality measuring approximately 1.6 x 0.5 cm in size. Biopsy needle seen within target lesion. Complete/near complete evacuation/decompression of target fluid achieved. No complication suggested. IMPRESSION: 1-2 mL debris-filled fluid aspirated from left parotid mass corresponding to patient localized area palpable abnormality and sent for laboratory evaluation. No residual mass/fluid or complication suggested. Interpreted by: Barbie Shelton DO Preliminary Report By: Barbie Shelton DO Electronically signed By Barbie Shelton DO Dictated Date: 07/14/2024 4:53:12 PM Prelim Date: 07/14/2024 4:58:18 PM Sign Date: 07/14/2024 4:58:18 PM Ordering Provider: [facility]05-21-2025 [facility] [address], [address] [place] [id number] OFFICE VISIT Date of Service: 07/14/24 MR#: [id number] Acct: [id number] Name: CHANCE MUNOZ Rep #: [id number] : 1945 Provider: WILLIAN Ness Age/Sex: 78/M Location: [facility] Status: Signed Intake Vital Signs 06/17/24 08:51 07/14/24 14:01 Height 5 ft 10.5 in Weight: 158 lb BMI 22.3 BP 109/67 104/68 Blood Pressure Location Rt brachial Lt brachial Position Sitting Sitting Respiration 14 16 Pulse 96 80 Pulse Source Monitor NIBP Temp 97.7 F L 98.1 F Temp Source Oral Pulse Oximetry (%) 97 95 Oxygen Delivery Method room air room air Intake Visit Reasons: L CLOGGED EAR Chief Complaint: left ear plugged Mri Technician Required: No Is patient in pain?: No Allergies cefaclor (From Ceclor) Allergy (Verified 07/14/24 14:02) Unknown contact metal agent Allergy (Verified 07/14/24 14:02) Rash nortriptyline Allergy (Verified 07/14/24 14:02) Unknown Penicillins Allergy (Verified 07/14/24 14:02) blisters on feet alfuzosin (From Uroxatral) Adverse Reaction (Verified 07/14/24 14:02) Unknown esomeprazole (From Nexium) Adverse Reaction (Verified 07/14/24 14:02) Itching lansoprazole (From Prevacid) Adverse Reaction (Verified 07/14/24 14:02) Upset Stomach Have you fallen in the past year?: No Nurse's Note: left ear plugged x 5 days. denies pain, fever, drainage. 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) MDS (myelodysplastic syndrome) Acute pharyngitis, unspecified Acute sinusitis, unspecified Impacted cerumen of both ears Acute bronchitis, unspecified Contact with and (suspected) exposure to other viral communicable diseases URI (upper respiratory infection) Right upper lobe pulmonary infiltrate Esophagitis Abdominal pain Hypothyroidism Wears dentures Anxiety Thyroid disease Arthritis Injury of back Loss of consciousness History of diverticulitis History of IBS History of hiatal hernia Non-smoker Seasonal allergies Leg cramps History of edema Cardiology follow-up encounter Personal history of colonic polyps Vertigo Concussion Chronic anemia Lipoma Skin lesion Fibromyalgia GERD (gastroesophageal reflux disease) Premature ventricular contractions Bradycardia Surgical History History of bilateral cataract extraction Hx of colonoscopy History of esophagogastroduodenoscopy (EGD) Hx of colonoscopy History of prostate surgery History of testicular mass excision History of tonsillectomy and adenoidectomy History of cholecystectomy Family History Father Diabetes Afib pacemaker Mother Heart disease Hx CHF Hypertension Social History household members: spouse housing: house Smoking Status: Never smoker alcohol intake: never substance use type: does not use caffeine: Yes Type: carbonated beverages what type of physical activity do you participate in: none seatbelt use: always do you feel safe at home: Yes HPI HPI Chief Complaint: left ear plugged Details: CHANCE MUNOZ, is a 78 M who presents to the office today for assessment of cerumen impaction in both ears (L>R); appreciates muffled hearing in both ears (L>R) and admits to frequent Q-tip use. Nonsmoker. No other associated symptomsand no other +/- factors. ROS Const Constitutional: No other (as above) Exam Const General: cooperative, healthy appearing and no acute distress Nutritional Appearance: average body habitus Orientation: alert, awake and oriented x3 HENMT Head: normal to inspection Ears: hearing grossly normal bilaterally, external ears normal, TM's normal bilaterally (after cerumen impaction removal AU), and EAC's normal Nose: external nose normal, nares normal Face and sinus: normal facial exam, and face symmetric Neck Neck: normal visual inspection, no lymphadenopathy, no meningeal signs and supple Neck mass: No Chest Chest palpation & inspection: normal inspection of the chest Resp Effort & Inspection: normal respiratory effort, able to speak in complete sentences Cardio Rate: regular rate Pulses: radial pulses present Skin General: no rashes or lesions noted Neuro General: patient alert, patient awake Cognition: normal cognition Speech: speech normal Extrem General: normal to inspection Psych Appearance: grossly normal Mental Status: mental status grossly normal Mood: congruent mood Affect: normal affect Speech and Movement: speech and movement normal Attitude: cooperative Office Procedures Cerumen Removal Procedure BMS Cerumen Removal Procedure Procedure performed by: Reinaldo Resendiz Method of removal: loop and irrigation From which ear canal was the cerumen removed: bilateral Amount of Cerumen: moderate Patient tolerated procedure: well Complications: none ASSESSMENT Impacted cerumen of both ears H61.23 Assessment and Plan Assessment and Plan (1) Impacted cerumen of both ears: Status: Acute Plan: See procedure above. Re-educated on appropriate ear hygiene care. Keep follow-up appointment with PCP as needed. Patient states acknowledging understanding all the above. Coding Level of Care Code Attention Chemical Operations Specialist Comment [id number], [id number] Clinical Quality Measures Falls Risk Screening/Assistive Devices Have you fallen in the past year?: No 07/14/24 1422 s WILLIAN PA> Date _ Reinaldo DORSEY Cosigner Signature: Date (if applicable) CC: ~ [facility]05-21-2025 Evaluation + Plan noteExtracted from: Title:Preprocedure HP Author:BRADLEY SEXTON PA-C Date:07/14/24 IR PREPROCEDURE H&P UPDATE IF A HISTORY AND PHYSICAL EXAMINATION HAS BEEN COMPLETED PRIOR TO ADMISSION TO THE HOSPITAL, AN UPDATED EXAMINATION MUST BE COMPLETED AND DOCUMENTED WITHIN 24 HOURS AFTER ADMISSION OR REGISTRATION BUT BEFORE A SURGICAL PROCEDURE. I have examined the patient, reviewed the H&P, and there are no changes unless noted below: _ The most recent H&P/Office Note was performed on 06/18/2024 and can be found on paper, which has been scanned into the [place] PACS/RIS system. Adela Sexton PA-C Interventional Radiology IR Dept [id number] Available on [facility] 05-21-2025 Note* Verenice May E: SIGN, AUTHOR, PERFORM Event Display: IR Procedure Record Authored Date: IR Procedure Record Summary Primary Physician: BARBIE SHELTON DO Finalized Date/Time: 07/14/24 11:36:48 Pt. Name: CHANCE MUNOZ/Sex: 1945 Male Med Rec #: [id number] Physician: Financial #: [id number] Pt. Type: O Room/Bed: / Admit/Disch: 07/14/24 10:10:00 - Institution: Allergies identified in patient's electronic medical record at time of printing on 07/14/24 Entry 1 Entry 2 Entry 3 Substance Magnesium cefaclor esomeprazole Reaction Type Allergy Allergy Allergy Last Modified By: Demetra Mckeon RN, Kaylee RN [place], Kaylee RN 07/14/24 10:56:59 07/14/24 10:56:27 07/14/24 10:56:43 Entry 4 Entry 5 Entry 6 Substance generic drugs nortriptyline penicillin Reaction Type Allergy Allergy Allergy Last Modified By: Demetra Mckeon RN, Kaylee RN Demetra Mckeon RN 07/14/24 10:57:30 07/14/24 10:57:11 07/14/24 10:57:21 Case Attendance- IR Entry 1 Entry 2 Entry 3 Case Attendee BARBIE SHELTON Kassidy E Clark, Lauren M Role Performed Primary Surgeon Junior Account Manager Junior Account Manager Details Time In 07/14/24 11:25:00 07/14/24 11:22:00 07/14/24 11:22:00 Time Out 07/14/24 11:40:00 07/14/24 12:00:00 07/14/24 12:00:00 Procedure/Preference IR Parotid Biopsy SN IR Parotid Biopsy SN IR Parotid Biopsy SN Card Last Modified By: Verenice May Kassidy E Kornish, Kassidy E 07/14/24 11:26:19 07/14/24 11:26:19 07/14/24 11:26:19 Radiology Procedures- IR Entry 1 Procedure/Preference IR Parotid Biopsy SN Actual Procedure IR PAROTID BIOPSY Card Primary Procedure Yes Primary Surgeon BARBIE SHELTON DO Anesthesia/Sedation Local Type Additional Procedure Times Start 07/14/24 11:26:00 Stop 07/14/24 11:45:00 Specialty Service SN Radiology Procedure EBL 0 mL Last Modified By: Verenice May 07/14/24 11:29:34 Radiology Procedure Details - IR Entry 1 Radiology Sedation Case Times Sedation Total Time 0 Radiology - Fluid/Drainage Fluid Amount mL: 2 Radiology Contrast Contrast Used? No Radiology Flouroscopy Fluoroscopy Used? No Fluoro Time 0 Radiology Local Local Used? Yes Local Type: LIDOCAINE Radiology Procedure Site Site Condition No complications Dressing Type Bandaids Last Modified By: Verenice May 07/14/24 11:36:42 Cultures and Specimens- IR Entry 1 Kind Specimen Type Cyst Last Modified By: Verenice May 07/14/24 11:28:10 General Case Data - IR Entry 1 Case Information Room IR US Case Level IR Level 2 Wound Class None Specialty SN Radiology Procedure ASA Class None Diagnosis Preop Diagnosis left parotid cyst Postop Same As Preop Yes aspiration Postop Diagnosis left parotid cyst aspiration Last Modified By: Verenice May 07/14/24 11:29:07 Medication Administration- IR Entry 1 Medication Lidocaine 2% Time Administered 07/14/24 11:29:00 Route of Admin Subcutaneous Volume 5 mL VORB Administered by Yes Administered by: BARBIE SHELTON DO Physician? Last Modified By: Verenice May 07/14/24 11:27:31 Procedure Case Times- IR Entry 1 Patient In Procedure Patient In OR 07/14/24 11:19:00 Patient Out of OR 07/14/24 11:49:00 Procedure Start/Stop Procedure Start Time 07/14/24 11:26:00 Procedure Stop Time 07/14/24 11:45:00 Last Modified By: Verenice May 07/14/24 11:26:37 Immediate Post OP Note - IR Entry 1 Immediate Post Yes Procedure Note displayed for Physician to review Closure Technique Closure Technique Other than Primary Last Modified By: Verenice May 07/14/24 11:28:15 Immediate Post OP Note - IR Signed By: BARBIE SHELTON DO 07/14/24 11:33 Allergy Information- IR Entry 1 Allergies Reviewed? Yes Last Modified By: Verenice May 07/14/24 11:25:28 Radiology Protocols/Time Out- IR Entry 1 Preprocedure Clinician Verifies Correct patient ID When Clinically Confirmation of correct using name & date Indicated side(s) and site(s), or MRN, Accurate Correct diagnostic and procedure, complete radiology tests Informed Consent, H & P available update immediately prior to procedure, if applicable OR/Procedure Room/Bedside Time 07/14/24 11:24:00 Clinician Verifies Correct patient identity including EMR & records using name and date or medical record number, Accurate procedure consent form, Correct patient position, Necessary equipment is available When Applicable Confirmation correct Team Members BARBIE SHELTON DO, side and site marked, Present for Time Out Verenice May, Relevant images and Suri Giron results are properly labeled and appropriately displayed, Alcohol based prep dry, Double verification of sterility indicators complete Instrument Sterility Team Members BARBIE SHELTON DO, Verifying Sterility Verenice May Clark, Lauren M Procedure IR Parotid Biopsy SN Last Modified By: Verenice May 07/14/24 11:27:05 Skin Prep- IR Entry 1 Procedure IR Parotid Biopsy SN Skin Prep Prep Area Neck Side Left By BARBIE SHELTON DO Prep Agents Chloraprep Hair Removal Method N/A Last Modified By: Verenice May 07/14/24 11:27:48 Patient Positioning- IR Entry 1 Procedure IR Parotid Biopsy SN Body Position OP Supine Feet Uncrossed? Yes Pressure Points Yes Checked Positioning Devices Pillow Support Last Modified By: Verenice May 07/14/24 11:28:00 Radiology Procedure Plan - IR Entry 1 Radiology - Nursing Care Plan Radiology - Action Plan Action Plan - Patient demonstrates Outcome Statement knowledge of the expected reseponses to the invasive procedure, Patient's value system, lifestyle, ethnicity, and culture are considered, respected, and incorporated in the perioperative plan of care., Patient is free from signs and symptoms of infection., Patient is free from signs and symptoms of injury related to positioning., Patient receives appropriate medication(s), safely administered during the perioperative period., Patient is free from signs and symptoms of injury caused by extraneous objects (equipment, instrumentation, sponges, or sharps)., Patient is free from signs and symptoms of electrical injury. Outcomes Met? Yes Drafter (Cad) Electrical Verenice May Completing Procedure Plan Last Modified By: Verenice May 07/14/24 11:28:40 Transfer Post Procedure- IR Entry 1 RAD - Transport to Recovery Via Ambulatory Post-op Destination Home Post Procedure Time Out Double Verification Yes Date/Time Verified 07/14/24 11:45:00 of ID band on patient Completed Verfied ID Band on Verenice May, by Suri Giron Last Modified By: Verenice May 07/14/24 11:29:56 Case Comments <None> Finalized By: Verenice May Document Signatures Signed By: Verenice May 07/14/24 11:36 [facility] 05-21-2025 Hospital Discharge instructions Patient Education 07/14/2024 11:31:05 Radiology- US Aspiration or Drainage 12/05/2023(CUSTOM) [place] Aspiration or Drainage Discharge Instructions Ultrasound Department [facility] [address] [place] [address] Today, you had a drainage or aspiration of . This procedure was done to help your doctor diagnose and treat the signs and symptoms you have been experiencing. These instructions should be followed after your procedure to reduce the chance of experiencing complications. Diet: Resume your normal diet as tolerated. Activity: Rest for the remainder of the day. You may resume your normal activity tomorrow. You may bathe/shower after 24 hours, unless you have a drainage catheter. Do not soak or submerge site (including swimming or hot tubs) until a scab forms. If you have a drainage catheter, no swimming or hot tubs and sponge bathe only until . No heavy lifting, pushing, or straining. Dressing: Check the site for bleeding. Apply pressure to the site if bleeding excessively and call your physician. Change the band aid as needed; it can be removed after 24 hours. Keep the site dry at all times until a scab forms over the site. Pain Control: The puncture site may be sore for 1 to 2 days following the procedure. Xoiw-eak-[id number] pain medication should be used for pain or discomfort. Please check with the physician who ordered this procedure for you for their specific recommendations. If your pain is not relieved or becomes more severe, notify the physician who sent you for this procedure. If you were sedated for this procedure: . Avoid alcoholic beverages for 24 hours after your procedure. Do not drive or operate heavy machinery for 24 hours after your procedure. Do not make any legal decisions for 24 hours after your procedure. Medication: Please resume on . When to seek medical help: Lightheadedness, dizziness, or fainting. Infection: fever greater than 101 degrees, chills, redness, warmth, swelling, bleeding, or pus frompuncture site. Increased pain. If you experience any of these issues during the first 24 hours, please follow the instruction below: 8:00 am- 5:00 pm call [phone] After 24 hours, contact the physician who ordered this procedure for you. Obtaining test results: Please make an appointment with your doctor to obtain your test results. They are usually availablewithin 4 to 7 business days. Do not assume everything is normal if you have not heard from your doctor or medical facility. It is important for you to follow up on all of your test results. Special Instructions: Follow Up Care 06/28/2024 12:40:55 With:Follow up with primary care provider Address:Unknown When: Unknown [facility] 05-21-2025 Note* Exam Date Time Procedure Performing Provider Status 07/14/24 11:36 AM IR Parotid Biopsy BARBIE SHELTON; Auth (Verified) [id number] ORIGINAL PROCEDURE: UTS guided BIOPSY/aspiration left parotid mass NEEDLE GUIDANCE 07/14/2024 HISTORY: ORDERING SYSTEM PROVIDED HISTORY: Reason for Exam: MASS TECHNIQUE: Maximum sterile barrier technique including hand hygiene, skin prep and sterile ultrasound technique utilized for procedure. Sterile ultrasound technique also utilized for procedure. Following informed consent, pause a confirm/time-out and ultrasound-guided puncture site selection, skin was prepped and draped in sterile fashion. 2% lidocaine without epinephrine for local anesthesia. Ultrasound-guided access of hypoechoic left pre-auricular/parotid mass was achieved. 1-2 mL debris filled fluid aspirated. Specimen sent for laboratory evaluation. No residual mass or complication suggested. Patient tolerated procedure well. CONTRAST: None SEDATION: None FLUOROSCOPY DOSE AND TYPE: Radiation Exposure Index: Kerma mGy, none-ultrasound guidance for procedure DESCRIPTION OF PROCEDURE: Informed consent was obtained after a detailed explanation of the procedure including risks, benefits, and alternatives. [place] protocol was observed. Sterile gowns, masks, hats and gloves utilized for maximal sterile barrier. As above in technique section FINDINGS: Pre and intraprocedural images demonstrate smoothly marginated cystic mass left parotid gland corresponding to patient localized area palpable abnormality measuring approximately 1.6 x 0.5 cm in size. Biopsy needle seen within target lesion. Complete/near complete evacuation/decompression of target fluid achieved. No complication suggested. IMPRESSION: 1-2 mL debris-filled fluid aspirated from left parotid mass corresponding to patient localized area palpable abnormality and sent for laboratory evaluation. No residual mass/fluid or complication suggested. Interpreted by: Barbie Shelton DO Preliminary Report By: Barbie Shelton DO Electronically signed By Barbie Shelton DO Dictated Date: 07/14/2024 4:53:12 PM Prelim Date: 07/14/2024 4:58:18 PM Sign Date: 07/14/2024 4:58:18 PM Ordering Provider: [facility]05-21-2025 Note IR Procedure Record Summary Primary Physician: BARBIE SHELTON DO Finalized Date/Time: 07/14/24 11:36:48 Pt. Name: CHANCE MUNOZ/Sex: 1945 Male Med Rec #: [id number] Physician: Financial #: [id number] Pt. Type: O Room/Bed: / Admit/Disch: 07/14/24 10:10:00 - Institution: Allergies identified in patient's electronic medical record at time of printing on 07/14/24 Entry 1 Entry 2 Entry 3 Substance Magnesium cefaclor esomeprazole Reaction Type Allergy Allergy Allergy Last Modified By: Demetra Mckeon RN, Kaylee RN Piacente, Kaylee RN 07/14/24 10:56:59 07/14/24 10:56:27 07/14/24 10:56:43 Entry 4 Entry 5 Entry 6 Substance generic drugs nortriptyline penicillin Reaction Type Allergy Allergy Allergy Last Modified By: Demetra Mckeon RN, Kaylee RN [place]e, Kaylee RN 07/14/24 10:57:30 07/14/24 10:57:11 07/14/24 10:57:21 Case Attendance- IR Entry 1 Entry 2 Entry 3 Case Attendee BARBIE SHELTON Kassidy E Clark, Lauren M Role Performed Primary Surgeon Junior Account Manager Junior Account Manager Details Time In 07/14/24 11:25:00 07/14/24 11:22:00 07/14/24 11:22:00 Time Out 07/14/24 11:40:00 07/14/24 12:00:00 07/14/24 12:00:00 Procedure/Preference IR Parotid Biopsy SN IR Parotid Biopsy SN IR Parotid Biopsy SN Card Last Modified By: Verenice May Kassidy E Kornish, Kassidy E 07/14/24 11:26:19 07/14/24 11:26:19 07/14/24 11:26:19 Radiology Procedures- IR Entry 1 Procedure/Preference IR Parotid Biopsy SN Actual Procedure IR PAROTID BIOPSY Card Primary Procedure Yes Primary Surgeon BARBIE SHELTON DO Anesthesia/Sedation Local Type Additional Procedure Times Start 07/14/24 11:26:00 Stop 07/14/24 11:45:00 Specialty Service SN Radiology Procedure EBL 0 mL Last Modified By: Verenice May 07/14/24 11:29:34 Radiology Procedure Details - IR Entry 1 Radiology Sedation Case Times Sedation Total Time 0 Radiology - Fluid/Drainage Fluid Amount mL: 2 Radiology Contrast Contrast Used? No Radiology Flouroscopy Fluoroscopy Used? No Fluoro Time 0 Radiology Local Local Used? Yes Local Type: LIDOCAINE Radiology Procedure Site Site Condition No complications Dressing Type Bandaids Last Modified By: Verenice May 07/14/24 11:36:42 Cultures and Specimens- IR Entry 1 Kind Specimen Type Cyst Last Modified By: Verenice May 07/14/24 11:28:10 General Case Data - IR Entry 1 Case Information Room AH IR US Case Level IR Level 2 Wound Class None Specialty SN Radiology Procedure ASA Class None Diagnosis Preop Diagnosis left parotid cyst Postop Same As Preop Yes aspiration Postop Diagnosis left parotid cyst aspiration Last Modified By: Verenice May 07/14/24 11:29:07 Medication Administration- IR Entry 1 Medication Lidocaine 2% Time Administered 07/14/24 11:29:00 Route of Admin Subcutaneous Volume 5 mL VORB Administered by Yes Administered by: BARBIE SHELTON DO Physician? Last Modified By: Verneice May 07/14/24 11:27:31 Procedure Case Times- IR Entry 1 Patient In Procedure Patient In OR 07/14/24 11:19:00 Patient Out of OR 07/14/24 11:49:00 Procedure Start/Stop Procedure Start Time 07/14/24 11:26:00 Procedure Stop Time 07/14/24 11:45:00 Last Modified By: Verenice May 07/14/24 11:26:37 Immediate Post OP Note - IR Entry 1 Immediate Post Yes Procedure Note displayed for Physician to review Closure Technique Closure Technique Other than Primary Last Modified By: Verenice May 07/14/24 11:28:15 Immediate Post OP Note - IR Signed By: BARBIE SHELTON DO 07/14/24 11:33 Allergy Information- IR Entry 1 Allergies Reviewed? Yes Last Modified By: Verenice May 07/14/24 11:25:28 Radiology Protocols/Time Out- IR Entry 1 Preprocedure Clinician Verifies Correct patient ID When Clinically Confirmation of correct using name & date Indicated side(s) and site(s), or MRN, Accurate Correct diagnostic and procedure, complete radiology tests Informed Consent, H & P available update immediately prior to procedure, if applicable OR/Procedure Room/Bedside Time 07/14/24 11:24:00 Clinician Verifies Correct patient identity including EMR & records using name and date or medical record number, Accurate procedure consent form, Correct patient position, Necessary equipment is available When Applicable Confirmation correct Team Members BARBIE SHELTON DO, side and site marked, Present for Time Out Verenice May, Relevant images and Suri Giron results are properly labeled and appropriately displayed, Alcohol based prep dry, Double verification of sterility indicators complete Instrument Sterility Team Members BARBIE SHELTON DO, Verifying Sterility Verenice May, Suri Giron Procedure IR Parotid Biopsy SN Last Modified By: Verenice May 07/14/24 11:27:05 Skin Prep- IR Entry 1 Procedure IR Parotid Biopsy SN Skin Prep Prep Area Neck Side Left By BARBIE SHELTON DO Prep Agents Chloraprep Hair Removal Method N/A Last Modified By: Verenice May 07/14/24 11:27:48 Patient Positioning- IR Entry 1 Procedure IR Parotid Biopsy SN Body Position OP Supine Feet Uncrossed? Yes Pressure Points Yes Checked Positioning Devices Pillow Support Last Modified By: Verenice May 07/14/24 11:28:00 Radiology Procedure Plan - IR Entry 1 Radiology - Nursing Care Plan Radiology - Action Plan Action Plan - Patient demonstrates Outcome Statement knowledge of the expected reseponses to the invasive procedure, Patient's value system, lifestyle, ethnicity, and culture are considered, respected, and incorporated in the perioperative plan of care., Patient is free from signs and symptoms of infection., Patient is free from signs and symptoms of injury related to positioning., Patient receives appropriate medication(s), safely administered during the perioperative period., Patient is free from signs and symptoms of injury caused by extraneous objects (equipment, instrumentation, sponges, or sharps)., Patient is free from signs and symptoms of electrical injury. Outcomes Met? Yes Drafter (Cad) Electrical Verenice May Completing Procedure Plan Last Modified By: Verenice May 07/14/24 11:28:40 Transfer Post Procedure- IR Entry 1 RAD - Transport to Recovery Via Ambulatory Post-op Destination Home Post Procedure Time Out Double Verification Yes Date/Time Verified 07/14/24 11:45:00 of ID band on patient Completed Verfied ID Band on Verenice May, by Suri Giron Last Modified By: Verenice May 07/14/24 11:29:56 Case Comments Finalized By: Verenice May Document Signatures Signed By: Verenice May 07/14/24 11:36 [id number] Summary of episode note Discharge Instructions Thank you for allowing [facility] to assist you with your healthcare needs. The following is importantdischarge information regarding your hospital visit. Your Care Team SHREYAS AMEZQUITA DO What to do next Follow Up Appointments Follow Up with Follow up with primary care provider The Following Activity and Diet Have Been Ordered for You No qualifying data available. No qualifying data available. The Following Equipment Has Been Ordered for You No qualifying data available. The Following Treatments Have Been Ordered for You Discharge Labs No qualifying data available. Discharge Radiology No qualifying data available. Other Therapies No qualifying data available. Post Acute Orders No qualifying data available. Someone Will Contact You Regarding These Home Health Referrals No home referrals have been ordered for you. No one will call you. Allergies Magnesium cefaclor esomeprazole generic drugs nortriptyline penicillin Medications Please ask your primary doctor or pharmacist before taking any other medication not listed, including over the counter drugs, herbal medications, vitamins and or supplements as they may interact withyour home medications. What How Much When Instructions Last Dose Unchanged buPROPion (buPROPion 150 mg/ 24 hours (XL) oraltablet, extended release) 1 tab(s) by mouth Every 24 hours Unchanged calcium citrate (Citracal 500 mg oral tablet) 500 Milligram by mouth Two (2) times a day Unchanged diphenhydrAMINE (Benadryl 25 mg oral capsule) 1 cap by mouth Every 4 hours as needed for as needed for itching Unchanged finasteride (finasteride 5 mg oral tablet) 1 tab(s) by mouth Once a day Unchanged fluticasone nasal (fluticasone 50 mcg/ inh NASAL spray) 1 spray(s) each nostril Two (2) times a day as needed for as needed for allergy symptoms Unchanged levothyroxine (levothyroxine 100 mcg (0.1 mg) oral tablet) 1 tab(s) by mouth Once a day Unchanged magnesium oxide (Magnesium 250 mg tablet) 2 tab(s) by mouth Once a day Duration: 10 Days Unchanged PARoxetine (PARoxetine 40 mg oral tablet) 1 tab(s) by mouth Once a day Unchanged tamsulosin (tamsulosin 0.4 mg oral capsule) 1 cap by mouth Once a day Unchanged triamcinolone topical (triamcinolone 0.025% topical cream) 1 application Topical Two (2) times a day as needed for Itching Duration: 14 Days Please take this list to your next doctor s visit. Bring all medications you take, including over the counter medications, herbals and other supplements with you to your doctor s visit. Patients and families are reminded to discard old lists and to update any records with all medication providers or retail pharmacies. Education Materials ANDERSON Aspiration or Drainage Discharge Instructions Ultrasound Department [facility] Services [address] [place] [address] Today, you had a drainage or aspiration of . This procedure was done to help your doctor diagnose and treat the signs and symptoms you have been experiencing. These instructions should be followed after your procedure to reduce the chance of experiencing complications. Diet: Resume your normal diet as tolerated. Activity: Rest for the remainder of the day. You may resume your normal activity tomorrow. You may bathe/shower after 24 hours, unless you have a drainage catheter. Do not soak or submerge site (including swimming or hot tubs) until a scab forms. If you have a drainage catheter, no swimming or hot tubs and sponge bathe only until . No heavy lifting, pushing, or straining. Dressing: Check the site for bleeding. Apply pressure to the site if bleeding excessively and call your physician. Change the band aid as needed; it can be removed after 24 hours. Keep the site dry at all times until a scab forms over the site. Pain Control: The puncture site may be sore for 1 to 2 days following the procedure. Dfmf-dim-pzkdasi pain medication should be used for pain or discomfort. Please check with the physician who ordered this procedure for you for their specific recommendations. If your pain is not relieved or becomes more severe, notify the physician who sent you for this procedure. If you were sedated for this procedure: . Avoid alcoholic beverages for 24 hours after your procedure. Do not drive or operate heavy machinery for 24 hours after your procedure. Do not make any legal decisions for 24 hours after your procedure. Medication: Please resume on . When to seek medical help: Lightheadedness, dizziness, or fainting. Infection: fever greater than 101 degrees, chills, redness, warmth, swelling, bleeding, or pus frompuncture site. Increased pain. If you experience any of these issues during the first 24 hours, please follow the instruction below: 8:00 am- 5:00 pm call [phone] After 24 hours, contact the physician who ordered this procedure for you. Obtaining test results: Please make an appointment with your doctor to obtain your test results. They are usually availablewithin 4 to 7 business days. Do not assume everything is normal if you have not heard from your doctor or medical facility. It is important for you to follow up on all of your test results. Special Instructions: Additional Information VACCINATE! IT SAVES LIVES! Members of the community who have not yet received the COVID-19 vaccine and would like to receive it can visit one of [facility] vaccine clinics. There are many vaccine clinic locations within the [facility]. For locations and available times, please visit [email or web address] It is important to note that some COVID mobile vaccine clinics are held outdoors and may be canceled in rainy or stormy conditions. To learn more about pediatric vaccinations (ages 5-11), we invite you to visit the [facility] webpage. [email or web address]/[email or web address] [email or web address] learn more about the COVID-19 vaccine, we invite you to visit the CDC website for a list of frequently asked questions.https://www.cdc.gov/coronavirus/2019-ncov/vaccines/faq.html [facility] Patient Portal Access Instructions: Stay connected with your healthcare team and access your personal medical information anytime with the [facility] Patient Portal. Please follow the directions below to create your [facility] account: 1.Access the email account you provided upon registration to the hospital/physician office.2.Look for an invitation email from [facility].3.Open the email and access the invitation link: AcceptInvitation to [facility].4.Fill in the required alejandre to create your account. To access your account, visit [email or web address]. Click the blue button labeled "Access Patient Portal" and then log in with the username and password that you created in the steps above. You will be able to view your test results, lab results, a summary of your visits, upcoming appointments and more. There is also a convenient messaging option where you can send secure messages to your p [employer]. In addition, you will have the ability to download any documents or summaries to your computer and/or send the information securely to a physician. Remember that your healthcare information is confidential, so carefully consider who you will allowto register on the [facility] Patient Portal for access to your information. You can also access the [facility] Patient Portal on the [employer] Anywhere constantin. Simply click on "Patient Portal" and then log into your account. If you would like to receive a full copy of your medical records, please contact the [facility] Medical Records Department by calling [phone], Friday through Friday between 8 a.m. and 4:30 p.m. HOW TO SAFELY DISPOSE OF PRESCRIPTION MEDICATIONS Please use one of the following methods to safely dispose of your unused medications. 1.Use a drug disposal kit: the drug disposal pouch allows you to safely discard your old and unuseddrugs. Ask your nurse to give you one when you are discharged.2.Visit a local take-back location: Many local pharmacies and police departments have programs that collect old and unwanted prescriptiondrugs. Call your local pharmacy or go to http://Ztory/1N5Tz5z to find one close to you.3.Make use of household items: Use cat litter or old coffee grounds to dispose medications if other options arenot available. Mix your drugs with these household products, seal them in an airtight container andthrow it into the garbage. Call [facility]: [phone] to be sure your drugs can be disposed of in this way. Some medicines may require a different approach.4.Never flush your medications down the toilet. IF YOU HAVE BEEN PRESCRIBED AN OPIOID FOR PAIN If you have been prescribed an opioid (such as hydrocodone, oxycodone or morphine), it is critical to understand the possible side effects and risks of opioid pain medications. Even when taken as directed, opioids can have several side effects including: Tolerance, meaning you might need to take more of a medication for the same pain relief. Nausea, vomiting and/or constipation. Sleepiness, dizziness, dry mouth, confusion, depression or itching. Physical dependence, meaning you have withdrawal symptoms when a medication is stopped, can develop within a few days. KNOW YOUR RESPONSIBILITIES It is important to know exactly how much and how often to take the opioid pain medications you are prescribed. Never take opioids in higher amounts or more often than prescribed. Do not combine opioids with alcohol or other drugs that cause drowsiness, such as benzodiazepines, also known as benzos, including diazepam and alprazolam, muscle relaxants or sleep aids. Never sell or share prescription opioids. This is illegal. Store opioids in a secure place and out of reach of others (including children, family, friends and visitors). The last page of this document has been signed and retained as a CHART COPY. Signatures Patient Education Materials Radiology- US Aspiration or Drainage 12/05/2023(CUSTOM) Medication Leaflets My discharge plan and instructions have been reviewed and explained to me and I,CHANCE MUNOZ understand my current condition and have read and understand these discharge instructions. I have received a written copy of the plan/instructions. If I have questions, I am aware that I should contact my doctor. Patient/Head Buyer Tobacco Signature: Date/Time: Relationship to Patient: Witness Name/Signature: Date/Time: [id number] Summary of episode note Discharge Instructions Thank you for allowing [facility] to assist you with your healthcare needs. The following is importantdischarge information regarding your hospital visit. Your Care Team SHREYAS AMEZQUITA DO What to do next Follow Up Appointments Follow Up with Follow up with primary care provider The Following Activity and Diet Have Been Ordered for You No qualifying data available. No qualifying data available. The Following Equipment Has Been Ordered for You No qualifying data available. The Following Treatments Have Been Ordered for You Discharge Labs No qualifying data available. Discharge Radiology No qualifying data available. Other Therapies No qualifying data available. Post Acute Orders No qualifying data available. Someone Will Contact You Regarding These Home Health Referrals No home referrals have been ordered for you. No one will call you. Allergies Magnesium cefaclor esomeprazole generic drugs nortriptyline penicillin Medications Please ask your primary doctor or pharmacist before taking any other medication not listed, including over the counter drugs, herbal medications, vitamins and or supplements as they may interact withyour home medications. What How Much When Instructions Last Dose Unchanged buPROPion (buPROPion 150 mg/ 24 hours (XL) oraltablet, extended release) 1 tab(s) by mouth Every 24 hours Unchanged calcium citrate (Citracal 500 mg oral tablet) 500 Milligram by mouth Two (2) times a day Unchanged diphenhydrAMINE (Benadryl 25 mg oral capsule) 1 cap by mouth Every 4 hours as needed for as needed for itching Unchanged finasteride (finasteride 5 mg oral tablet) 1 tab(s) by mouth Once a day Unchanged fluticasone nasal (fluticasone 50 mcg/ inh NASAL spray) 1 spray(s) each nostril Two (2) times a day as needed for as needed for allergy symptoms Unchanged levothyroxine (levothyroxine 100 mcg (0.1 mg) oral tablet) 1 tab(s) by mouth Once a day Unchanged magnesium oxide (Magnesium 250 mg tablet) 2 tab(s) by mouth Once a day Duration: 10 Days Unchanged PARoxetine (PARoxetine 40 mg oral tablet) 1 tab(s) by mouth Once a day Unchanged tamsulosin (tamsulosin 0.4 mg oral capsule) 1 cap by mouth Once a day Unchanged triamcinolone topical (triamcinolone 0.025% topical cream) 1 application Topical Two (2) times a day as needed for Itching Duration: 14 Days Please take this list to your next doctor s visit. Bring all medications you take, including over the counter medications, herbals and other supplements with you to your doctor s visit. Patients and families are reminded to discard old lists and to update any records with all medication providers or retail pharmacies. Education Materials [facility]ERSON Aspiration or Drainage Discharge Instructions Ultrasound Department [facility] [address] [place] [address] Today, you had a drainage or aspiration of . This procedure was done to help your doctor diagnose and treat the signs and symptoms you have been experiencing. These instructions should be followed after your procedure to reduce the chance of experiencing complications. Diet: Resume your normal diet as tolerated. Activity: Rest for the remainder of the day. You may resume your normal activity tomorrow. You may bathe/shower after 24 hours, unless you have a drainage catheter. Do not soak or submerge site (including swimming or hot tubs) until a scab forms. If you have a drainage catheter, no swimming or hot tubs and sponge bathe only until . No heavy lifting, pushing, or straining. Dressing: Check the site for bleeding. Apply pressure to the site if bleeding excessively and call your physician. Change the band aid as needed; it can be removed after 24 hours. Keep the site dry at all times until a scab forms over the site. Pain Control: The puncture site may be sore for 1 to 2 days following the procedure. [id number] pain medication should be used for pain or discomfort. Please check with the physician who ordered this procedure for you for their specific recommendations. If your pain is not relieved or becomes more severe, notify the physician who sent you for this procedure. If you were sedated for this procedure: . Avoid alcoholic beverages for 24 hours after your procedure. Do not drive or operate heavy machinery for 24 hours after your procedure. Do not make any legal decisions for 24 hours after your procedure. Medication: Please resume on . When to seek medical help: Lightheadedness, dizziness, or fainting. Infection: fever greater than 101 degrees, chills, redness, warmth, swelling, bleeding, or pus frompuncture site. Increased pain. If you experience any of these issues during the first 24 hours, please follow the instruction below: 8:00 am- 5:00 pm call [phone] After 24 hours, contact the physician who ordered this procedure for you. Obtaining test results: Please make an appointment with your doctor to obtain your test results. They are usually availablewithin 4 to 7 business days. Do not assume everything is normal if you have not heard from your doctor or medical facility. It is important for you to follow up on all of your test results. Special Instructions: Additional Information VACCINATE! IT SAVES LIVES! Members of the community who have not yet received the COVID-19 vaccine and would like to receive it can visit one of [facility] vaccine clinics. There are many vaccine clinic locations within the [facility]. For locations and available times, please visit [email or web address] It is important to note that some COVID mobile vaccine clinics are held outdoors and may be canceled in rainy or stormy conditions. To learn more about pediatric vaccinations (ages 5-11), we invite you to visit the [facility] webpage. [email or web address] [email or web address] learn more about the COVID-19 vaccine, we invite you to visit the CDC website for a list of frequently asked questions.https://www.cdc.gov/coronavirus/2019-ncov/vaccines/faq.html [facility] Patient Portal Access Instructions: Stay connected with your healthcare team and access your personal medical information anytime with the [facility] Patient Portal. Please follow the directions below to create your [facility] account: 1.Access the email account you provided upon registration to the hospital/physician office.2.Look for an invitation email from [facility].3.Open the email and access the invitation link: AcceptInvitation to [facility].4.Fill in the required alejandre to create your account. To access your account, visit [email or web address]. Click the blue button labeled "Access Patient Portal" and then log in with the username and password that you created in the steps above. You will be able to view your test results, lab results, a summary of your visits, upcoming appointments and more. There is also a convenient messaging option where you can send secure messages to your p rovider. In addition, you will have the ability to download any documents or summaries to your computer and/or send the information securely to a physician. Remember that your healthcare information is confidential, so carefully consider who you will allowto register on the [facility] Patient Portal for access to your information. You can also access the [facility] Patient Portal on the [facility] [employer] constantin. Simply click on "Patient Portal" and then log into your account. If you would like to receive a full copy of your medical records, please contact the [facility] Medical Records Department by calling [phone], Friday through Friday between 8 a.m. and 4:30 p.m. HOW TO SAFELY DISPOSE OF PRESCRIPTION MEDICATIONS Please use one of the following methods to safely dispose of your unused medications. 1.Use a drug disposal kit: the drug disposal pouch allows you to safely discard your old and unuseddrugs. Ask your nurse to give you one when you are discharged.2.Visit a local take-back location: Many local pharmacies and police departments have programs that collect old and unwanted prescriptiondrugs. Call your local pharmacy or go to http://bit.ly/5M2Wt3k to find one close to you.3.Make use of household items: Use cat litter or old coffee grounds to dispose medications if other options arenot available. Mix your drugs with these household products, seal them in an airtight container andthrow it into the garbage. Call [facility]: [phone] to be sure your drugs can be disposed of in this way. Some medicines may require a different approach.4.Never flush your medications down the toilet. IF YOU HAVE BEEN PRESCRIBED AN OPIOID FOR PAIN If you have been prescribed an opioid (such as hydrocodone, oxycodone or morphine), it is critical to understand the possible side effects and risks of opioid pain medications. Even when taken as directed, opioids can have several side effects including: Tolerance, meaning you might need to take more of a medication for the same pain relief. Nausea, vomiting and/or constipation. Sleepiness, dizziness, dry mouth, confusion, depression or itching. Physical dependence, meaning you have withdrawal symptoms when a medication is stopped, can develop within a few days. KNOW YOUR RESPONSIBILITIES It is important to know exactly how much and how often to take the opioid pain medications you are prescribed. Never take opioids in higher amounts or more often than prescribed. Do not combine opioids with alcohol or other drugs that cause drowsiness, such as benzodiazepines, also known as benzos, including diazepam and alprazolam, muscle relaxants or sleep aids. Never sell or share prescription opioids. This is illegal. Store opioids in a secure place and out of reach of others (including children, family, friends and visitors). The last page of this document has been signed and retained as a CHART COPY. Signatures Patient Education Materials Radiology- US Aspiration or Drainage 12/05/2023(CUSTOM) Medication Leaflets My discharge plan and instructions have been reviewed and explained to me and I,CHANCE MUNOZ understand my current condition and have read and understand these discharge instructions. I have received a written copy of the plan/instructions. If I have questions, I am aware that I should contact my doctor. Patient/Head Buyer Tobacco Signature: Date/Time: Relationship to Patient: Witness Name/Signature: Date/Time: [facility] [id number] History and physical note IR PREPROCEDURE H&P UPDATE IF A HISTORY AND PHYSICAL EXAMINATION HAS BEEN COMPLETED PRIOR TO ADMISSION TO THE HOSPITAL, AN UPDATED EXAMINATION MUST BE COMPLETED AND DOCUMENTED WITHIN 24 HOURS AFTER ADMISSION OR REGISTRATION BUT BEFORE A SURGICAL PROCEDURE. I have examined the patient, reviewed the H&P, and there are no changes unless noted below: _ The most recent H&P/Office Note was performed on 06/18/2024 and can be found on paper, which has been scanned into the [facility]RIS system. Adela Sexton PA-C Interventional Radiology IR Dept [id number] Available on [employer] Digitally Signed by ADELA SEXTON PA-C on 07/14/2024 11:29 AM Digitally Signed by BARBIE SHELTON DO on 07/14/2024 04:43 PM [facility] [id number] Progress note Author Reinaldo Resendiz [facility] Note Date/Time July 14, 2024 2:22p [facility] [address], [address] [place] [address] OFFICE VISIT Date of Service: 07/14/24 MR#: [id number] Acct: [id number] Name: CHANCE MUNOZ Rep #: [id number] : 1945 Provider: WILLIAN Ness Age/Sex: 78/M Location: [facility] Status: Signed Intake Vital Signs 06/17/24 08:51 07/14/24 14:01 Height 5 ft 10.5 in Weight: 158 lb BMI 22.3 BP 109/67 104/68 Blood Pressure Location Rt brachial Lt brachial Position Sitting Sitting Respiration 14 16 Pulse 96 80 Pulse Source Monitor NIBP Temp 97.7 F L 98.1 F Temp Source Oral Pulse Oximetry (%) 97 95 Oxygen Delivery Method room air room air Intake Visit Reasons: L CLOGGED EAR Chief Complaint: left ear plugged Mri Technician Required: No Is patient in pain?: No Allergies cefaclor (From Ceclor) Allergy (Verified 07/14/24 14:02) Unknown contact metal agent Allergy (Verified 07/14/24 14:02) Rash nortriptyline Allergy (Verified 07/14/24 14:02) Unknown Penicillins Allergy (Verified 07/14/24 14:02) blisters on feet alfuzosin (From Uroxatral) Adverse Reaction (Verified 07/14/24 14:02) Unknown esomeprazole (From Nexium) Adverse Reaction (Verified 07/14/24 14:02) Itching lansoprazole (From Prevacid) Adverse Reaction (Verified 07/14/24 14:02) Upset Stomach Have you fallen in the past year?: No Nurse's Note: left ear plugged x 5 days. denies pain, fever, drainage. 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) MDS (myelodysplastic syndrome) Acute pharyngitis, unspecified Acute sinusitis, unspecified Impacted cerumen of both ears Acute bronchitis, unspecified Contact with and (suspected) exposure to other viral communicable diseases URI (upper respiratory infection) Right upper lobe pulmonary infiltrate Esophagitis Abdominal pain Hypothyroidism Wears dentures Anxiety Thyroid disease Arthritis Injury of back Loss of consciousness History of diverticulitis History of IBS History of hiatal hernia Non-smoker Seasonal allergies Leg cramps History of edema Cardiology follow-up encounter Personal history of colonic polyps Vertigo Concussion Chronic anemia Lipoma Skin lesion Fibromyalgia GERD (gastroesophageal reflux disease) Premature ventricular contractions Bradycardia Surgical History History of bilateral cataract extraction Hx of colonoscopy History of esophagogastroduodenoscopy (EGD) Hx of colonoscopy History of prostate surgery History of testicular mass excision History of tonsillectomy and adenoidectomy History of cholecystectomy Family History (Reviewed 06/17/24 @ 13:58 by Dianne Donnelly BURN OUT SCARFING OPERATOR, BURN OUT SCARFING OPERATOR-C) Father Diabetes Afib pacemaker Mother Heart disease Hx CHF Hypertension Social History household members: spouse housing: house Smoking Status: Never smoker alcohol intake: never substance use type: does not use caffeine: Yes Type: carbonated beverages what type of physical activity do you participate in: none seatbelt use: always do you feel safe at home: Yes HPI HPI Chief Complaint: left ear plugged Details: CHANCE MUNOZ, is a 78 M who presents to the office today for assessment of cerumen impaction in both ears (L>R); appreciates muffled hearing in both ears (L>R) and admits to frequent Q-tip use. Nonsmoker. No other associated symptomsand no other +/- factors. ROS Const Constitutional: No other (as above) Exam Const General: cooperative, healthy appearing and no acute distress Nutritional Appearance: average body habitus Orientation: alert, awake and oriented x3 HENMT Head: normal to inspection Ears: hearing grossly normal bilaterally, external ears normal, TM's normal bilaterally (after cerumen impaction removal AU), and EAC's normal Nose: external nose normal, nares normal Face and sinus: normal facial exam, and face symmetric Neck Neck: normal visual inspection, no lymphadenopathy, no meningeal signs and supple Neck mass: No Chest Chest palpation & inspection: normal inspection of the chest Resp Effort & Inspection: normal respiratory effort, able to speak in complete sentences Cardio Rate: regular rate Pulses: radial pulses present Skin General: no rashes or lesions noted Neuro General: patient alert, patient awake Cognition: normal cognition Speech: speech normal Extrem General: normal to inspection Psych Appearance: grossly normal Mental Status: mental status grossly normal Mood: congruent mood Affect: normal affect Speech and Movement: speech and movement normal Attitude: cooperative Office Procedures Cerumen Removal Procedure BMS Cerumen Removal Procedure Procedure performed by: Reinaldo Resendiz Method of removal: loop and irrigation From which ear canal was the cerumen removed: bilateral Amount of Cerumen: moderate Patient tolerated procedure: well Complications: none ASSESSMENT Impacted cerumen of both ears H61.23 Assessment and Plan Assessment and Plan (1) Impacted cerumen of both ears: Status: Acute Plan: See procedure above. Re-educated on appropriate ear hygiene care. Keep follow-up appointment with PCP as needed. Patient states acknowledging understanding all the above. Coding Level of Care Code Attention Chemical Operations Specialist Comment 80830, 87344 Clinical Quality Measures Falls Risk Screening/Assistive Devices Have you fallen in the past year?: No 07/14/24 6369 <Electronically signed by Reinaldo DORSEY> Date _ Reinaldo DORSEY Cosigner Signature: Date (if applicable) CC: ~ [facility] Work Phone: [phone] [facility]Kind[facility]05-[facility]-2025 History of Present illness Narrative* Parul Jordan LPN - 06/29/2024 10:30 AM EDT Patient here for injection of Aranesp. Given SQ in left arm. Patient tolerated well. For all other information regarding today, see today's OV note with Dr Cruz. Parul Jordan LPN documented in this encounterOhio[facility]-2025 NoteKind[facility] [place]05-06-2025 History of Present illness Narrative* Acosat Cruz DO - 06/29/2024 10:13 AM EDT Oncologic problem(s): 1) MDS. HPI: The patient is a 78 year old male with PMHx of T2DM, CAD, asthma, hypothyroidism, thyroid nodule, BPH, DDD, testicular mass s/p orchiectomy 2016 benign, GERD, colon polyps and pancytopenia. Diagnosed with iron deficiency anemia initially dx in 2020. (Records from [facility] scanned). Has received IV iron in the past, unable to tolerate PO iron supplements due to GI upset. Last received Injectafer x2 at [facility] 03/2023. Per initial consultation: He states "I've been anemic since I got out of the service in ." Follows with Dr. Jane LAMBERT. Has had complete GI workup. Past 3 years - two EGDs, colonoscopies, occult stool, without bleeding. Denies fevers. Feels chills in the evenings for last several years. No recent illnesses or infections. No lumps or bumps. Notes diffuse pruritic rash "all over" about the last 3-4 weeks. Mostly extremities, was told he was allergic to mold but allergy test negative. Started back on allergy med last night. Tries not to take too frequently due to prostate issues. Rash showed up Nov just after receiving RSV vaccine. Serum sickness rxn, joint swelling. Bilateral lower extremity neuropathy improved with IV iron - gettingworse now. Possible mold exposure recently basement flooded, had a box that he missed in clean up [place], pesticide exposure. [place] used to spray (now banned) Used respirator at the time. 2017 retired from [employer], 30+ years, possible chemical exposures. [place] for 300+ days -, possible agent orange exposure. He states was used where he was stationed 3 months prior to his arrival. No known family hx of cancer. Sister with syncopal episodes, mother guillain-barre." Current therapy: 1) BETY with Aranesp. Presents for ongoing hematologic management. Interim history: Generalized fatigue, but he still enjoys doing work around the home. Noticed lump just above the angle of the mandible on the left. Larger in last 4- 6 weeks. Both ears feel full. Saw Dr. Sauceda. Biopsy ordered at [facility]. No fever, night sweats or weight loss. PAST MEDICAL HISTORY Diagnosis Date Acute gastritis without mention of hemorrhage Anemia 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) 07/07/2023 Bladder neck obstruction 03/11/2005 Bronchiectasis (HCC) Depression Diverticulosis of colon (without mention of hemorrhage) Elevated bilirubin Esophagitis, unspecified GERD (gastroesophageal reflux disease) hiatal hernia Hypothyroid IBS (irritable bowel syndrome) Impaired fasting glucose MDS (myelodysplastic syndrome), low grade (HCC) 07/07/2023 Myalgia and myositis, unspecified Pancytopenia (HCC) Premature ventricular contractions Right upper lobe pulmonary infiltrate PAST SURGICAL HISTORY Procedure Laterality Date COLONOSCOPY FLX DX W/COLLJ SPEC WHEN PFRMD 01/28/05 Colonoscopy COLSC FLX W/RMVL OF TUMOR POLYP LESION SNARE TQ 04/29/2016 EGD TRANSORAL BIOPSY SINGLE/MULTIPLE 04/29/2016 ESOPHAGOGASTRODUODENOSCOPY TRANSORAL DIAGNOSTIC 01/28/05 EGD ORCHIECTOMY SIMPLE Left 12/2015 PAST SURGICAL HISTORY OF 2007 PVP prostate PAST SURGICAL HISTORY OF 07/03/1997 chest wall tumor- benign PAST SURGICAL HISTORY OF 02/12/01 gall bladder REMOVE TONSILS AND ADENOIDS; AGE 11 OVER ALLERGIES Allergen Reactions Prevacid [Lansopraz* Diarrhea Only the generic form Ceclor [Cefaclor] Itching Contact Metal Agent Rash Doxycycline Rash Nexium [Esomeprazol* Itching Nortriptyline unknown Penicillins Itching Rsv Vac, Pref A And* Swelling Uroxatral [Alfuzosi* Intolerance numbness Current Outpatient Medications Medication Sig fluticasone (FLONASE ALLERGY RELIEF) 50 mcg/actuation nasal spray Use 1 [place] in each nostril as needed. polyethylene glycol 3350 17 gram packet Take 17 g by mouth once daily as needed. Dissolve dose in 4- 8 ounces of liquid and take as directed. albuterol sulfate 90 mcg/actuation breath activated powder inhaler Inhale 2 Puffs as instructed as needed. budesonide-formoterol (SYMBICORT) 160-4.5 mcg/actuation inhaler Inhale 2 Puffs as instructed two times a day. tamsulosin (FLOMAX) 0.4 mg Take 0.4 mg by mouth daily at bedtime. buPROPion XL (WELLBUTRIN XL) 150 mg 24 hr tablet Take 150 mg by mouth once daily. levothyroxine (SYNTHROID) 88 mcg tablet Take 88 mcg by mouth daily before breakfast. finasteride 5 mg tablet Take 1 tablet by mouth once daily. paroxetine (PAXIL) 20 mg ORAL tablet Take 1 tablet by mouth once daily. scopolamine (TRANSDERM-SCOP) patch 1.5 mg/72 hr (delivers 1 mg over 3 days) Apply 1 Patch as directed every 72 hours. as needed for vertigo (Patient not taking: Reported on 01/12/2024) Magnesium Oxide 250 mg magnesium tab Take 500 mg by mouth once daily. (Patient not taking: Reportedon 10/20/2023) docusate sodium (COLACE) 100 mg capsule Take 100 mg by mouth as needed. (Patient not taking: Reported on 10/20/2023) calcium-vitamin D3-vitamin K (CITRACAL-D3 SOFT CHEW) 500 mg-1,000 unit-40 mcg chew Take 2 tablets by mouth once daily. Lactobacillus acidophilus 10 billion cell cap Take 1 capsule by mouth once daily. pantoprazole DR (PROTONIX) 40 mg tablet Take 40 mg by mouth two times a day. (Patient not taking: Reported on 06/29/2024) METAMUCIL 100 % ORAL POWDER Take by mouth as needed. (Patient not taking: Reported on 06/07/2024) MULTIVITAMIN TAB Take 1 tablet by mouth once daily. (Patient not taking: Reported on 01/12/2024) No current facility-administered medications for this visit. Facility-Administered Medications Ordered in Other Visits Medication Dose Route Frequency darbepoetin darrel in polysorbat 300 mcg injection (ARANESP) 300 mcg SUBCUTANEOUS ONCE Social History Tobacco Use Smoking status: Never Smokeless tobacco: Never Vaping Use Vaping status: Never Used Substance Use Topics Alcohol use: No Drug use: No Family History Problem Relation Age of Onset Hypertension Mother Heart Mother not CAD, details unknown Diabetes Father age 57 Heart Father pacemaker, CAD other (other) Sister anemia Heart Sister Arthritis Sister Colon Cancer Other none Prostate Cancer Other none Complete review of systems otherwise negative except as noted above. PHYSICAL EXAM: Vitals: Blood pressure 94/57, pulse 77, temperature 36.3 C (97.3 F), temperature source Temporal, weight 70.8 kg (156 lb), SpO2 98%. Well-appearing and in no acute distress. EYES: Sclerae are anicteric bilaterally. Mobile about 1.[address] left side as described above. No other adenopathy. Heart: Regular rhythm. 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 -IPSS-R 2 (Normal cytogenetics and blasts >2-<5%); Low risk. -H/O AVMs and previous TANNER. -Previously discussed more definitive therapy including possible azacitidine should he develop neutropenia, significant thrombocytopenia or other indication for such therapy. -He is definitely getting a very nice palliative effect with darbepoetin. Has not required blood transfusion since starting therapy. - Mild thrombocytopenia that has been stable. He has no bleeding issues. Count allows upcoming scheduled biopsy. - He has new unexplained lymphadenopathy. No constitutional symptoms. Reviewed various etiologies. Plan: -Okay for Aranesp today. -Hgb parameter at 11 g/dL. -Continue every other week CBC/Possible Aranesp. -Monitor iron and hematinics every 3 months. - Gave him my card to pass on to the pathologist perform the biopsy so that the report is sent to me as well. Portions of this documentation were copied and pasted from my previous office visit note dated 11/17/2023 in order to provide a cohesive continuity of the history. The note has been reviewed and edited and updated as necessary. Acosta Cruz DO documented in this encounterOhiohealth [facility]04-14-2025 NoteKind[facility]04-14-2025 History of Present illness Narrative* Santiago Cottrell LPN - 06/07/2024 9:01 AM EDT Patient presents with: Imm/Inj Pt is identified by name and birthdate: Yes. Allergies and medications reviewed. Latex allergy? No. Does this patient have: Unplanned weight loss or gain of greater than 10 pounds, or a change of appetite over the last year? No Does the patient have any concerns about safety in the home/falls? At risk due to: imbalance Has the patient fallen in the past year? No Does the patient have difficulty performing or completing routine daily living activities? No Does this patient have concerns about personal safety? No Is patient having pain? Pain: No=0 (pain 0 on a scale of 0-10). Health Maintenance: Reviewed and updated. Does patient have MyChart access or Caregiver proxy: yes Pt/Caregiver willingness and readiness to learn assessed: Yes. Barriers: none Aranesp injection administered,left arm, tolerated well, no immediate adverse reactions noted. Santiago Cottrell LPN documented in this encounterOhiohealth [facility]03-25-2025 Evaluation note* Diagnosis Onset Date Resolution Status Admit Date Hypotension acute May 18, 025 1:50pm Premature ventricular contractions chronic May 18, 2024 1:50pm Bronchiectasis chronic May 1:31pm [employer] [employer] [facility] Work Phone: [phone] NoteHNO ID: [id number] Author: PARUL JORDAN LPN Service: ? Author Type: LICENSED NURSE Type: Progress Notes Filed: 05/17/2024 11:33 Note Text: Aranesp injection deferred. Pt did not meet treatment parameters. Hgb 11.0 Parul [facility]levelAt[facility]-24-20[facility] History of Present illness Narrative* Parul Jordan LPN - 05/17/2024 11:31 AM EDT Aranesp injection deferred. Pt did not meet treatment parameters. Hgb 11.0 Parul Jodran LPN documented in this encounterOhiohealth Arthur [facility]03-24-2025 NoteKind[facility]03-24-2025 History of Present illness Narrative* Ernesto Shenna - 05/17/2024 11:01 AM EDT Oncologic problem(s): 1) MDS. HPI: The patient is a 78 year old male with PMHx of T2DM, CAD, asthma, hypothyroidism, thyroid nodule, BPH, DDD, testicular mass s/p orchiectomy 2016 benign, GERD, colon polyps and pancytopenia. Diagnosed with iron deficiency anemia initially dx in 2020. (Records from [facility] scanned). Has received IV iron in the past, unable to tolerate PO iron supplements due to GI upset. Last received Injectafer x2 at [facility] 03/2023. Per initial consultation: He states "I've been anemic since I got out of the service in ." Follows with Dr. Jane LAMBERT. Has had complete GI workup. Past 3 years - two EGDs, colonoscopies, occult stool, without bleeding. Denies fevers. Feels chills in the evenings for last several years. No recent illnesses or infections. No lumps or bumps. Notes diffuse pruritic rash "all over" about the last 3-4 weeks. Mostly extremities, was told he was allergic to mold but allergy test negative. Started back on allergy med last night. Tries not to take too frequently due to prostate issues. Rash showed up Nov just after receiving RSV vaccine. Serum sickness rxn, joint swelling. Bilateral lower extremity neuropathy improved with IV iron - gettingworse now. Possible mold exposure recently basement flooded, had a box that he missed in clean up [place], pesticide exposure. [place] used to spray (now banned) Used respirator at the time. 2017 retired from [employer], 30+ years, possible chemical exposures. [place] 300+ days 66-67, possible agent orange exposure. He states was used where he was stationed 3 months prior to his arrival. No known family hx of cancer. Sister with syncopal episodes, mother guillain-barre." Current therapy: 1) BETY with Aranesp. Presents for ongoing hematologic management. Interim history: No new issues, recent cold. Fever about a week ago. No recurrent issues. No N/V Dizziness when standing too quickly. Otherwise no new issues. Denies bleeding. No bowel or bladder changes. Labs reviewed today. Hgb remains stable. 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 Bronchiectasis (HCC) Depression Diverticulosis of colon (without mention of hemorrhage) Elevated bilirubin Esophagitis, unspecified GERD (gastroesophageal reflux disease) hiatal hernia Hypothyroid IBS (irritable bowel syndrome) Impaired fasting glucose MDS (myelodysplastic syndrome), low grade (HCC) 07/07/2023 Myalgia and myositis, unspecified Pancytopenia (HCC) Premature ventricular contractions Right upper lobe pulmonary infiltrate PAST SURGICAL HISTORY Procedure Laterality Date COLONOSCOPY FLX DX W/COLLJ SPEC WHEN PFRMD 01/28/05 Colonoscopy COLSC FLX W/RMVL OF TUMOR POLYP LESION SNARE TQ 04/29/2016 EGD TRANSORAL BIOPSY SINGLE/MULTIPLE 04/29/2016 ESOPHAGOGASTRODUODENOSCOPY TRANSORAL DIAGNOSTIC 01/28/05 EGD ORCHIECTOMY SIMPLE Left 12/2015 PAST SURGICAL HISTORY OF 2007 PVP prostate PAST SURGICAL HISTORY OF 07/03/1997 chest wall tumor- benign PAST SURGICAL HISTORY OF 02/12/01 gall bladder REMOVE TONSILS AND ADENOIDS; AGE 11 OVER ALLERGIES Allergen Reactions Prevacid [Lansopraz* Diarrhea Only the generic form Ceclor [Cefaclor] Itching Contact Metal Agent Rash Doxycycline Rash Nexium [Esomeprazol* Itching Nortriptyline unknown Penicillins Itching Rsv Vac, Pref A And* Swelling Uroxatral [Alfuzosi* Intolerance numbness Current Outpatient Medications Medication Sig fluticasone (FLONASE ALLERGY RELIEF) 50 mcg/actuation nasal spray Use 1 [place] in each nostril as needed. polyethylene glycol 3350 17 gram packet Take 17 g by mouth once daily as needed. Dissolve dose in 4- 8 ounces of liquid and take as directed. albuterol sulfate 90 mcg/actuation breath activated powder inhaler Inhale 2 Puffs as instructed as needed. budesonide-formoterol (SYMBICORT) 160-4.5 mcg/actuation inhaler Inhale 2 Puffs as instructed two times a day. tamsulosin (FLOMAX) 0.4 mg Take 0.4 mg by mouth daily at bedtime. pantoprazole DR (PROTONIX) 40 mg tablet Take 40 mg by mouth two times a day. buPROPion XL (WELLBUTRIN XL) 150 mg 24 hr tablet Take 150 mg by mouth once daily. levothyroxine (SYNTHROID) 88 mcg tablet Take 88 mcg by mouth daily before breakfast. finasteride 5 mg tablet Take 1 tablet by mouth once daily. paroxetine (PAXIL) 20 mg ORAL tablet Take 1 tablet by mouth once daily. METAMUCIL 100 % ORAL POWDER Take by mouth as needed. scopolamine (TRANSDERM-SCOP) patch 1.5 mg/72 hr (delivers 1 mg over 3 days) Apply 1 Patch as directed every 72 hours. as needed for vertigo (Patient not taking: Reported on 01/12/2024) Magnesium Oxide 250 mg magnesium tab Take 500 mg by mouth once daily. (Patient not taking: Reportedon 10/20/2023) docusate sodium (COLACE) 100 mg capsule Take 100 mg by mouth as needed. (Patient not taking: Reported on 10/20/2023) calcium-vitamin D3-vitamin K (CITRACAL-D3 SOFT CHEW) 500 mg-1,000 unit-40 mcg chew Take 2 tablets by mouth once daily. Lactobacillus acidophilus 10 billion cell cap Take 1 capsule by mouth once daily. MULTIVITAMIN TAB Take 1 tablet by mouth once daily. (Patient not taking: Reported on 01/12/2024) No current facility-administered medications for this visit. Social History Tobacco Use Smoking status: Never Smokeless tobacco: Never Vaping Use Vaping status: Never Used Substance Use Topics Alcohol use: No Drug use: No Family History Problem Relation Age of Onset Hypertension Mother Heart Mother not CAD, details unknown Diabetes Father age 57 Heart Father pacemaker, CAD other (other) Sister anemia Heart Sister Arthritis Sister Colon Cancer Other none Prostate Cancer Other none Complete review of systems otherwise negative except as noted above. ROS: All systems reviewed on 05/18/2024 with pertinent positives and negatives as outlined in the interval history. PHYSICAL EXAM: Vitals: Blood pressure 105/55, pulse 78, temperature 36.2 C (97.1 F), temperature source Temporal,weight 69.6 kg (153 lb 8 oz), SpO2 98%. Well-appearing and in no acute distress. EYES: Sclerae are anicteric bilaterally. Heart: Regular rhythm. Extremities: No edema I have performed the physical exam today (05/18/2024) and have edited the note to correlate with current findings. LABS: Latest Reference Range & Units 12/29/23 09:28 01/12/24 09:22 01/26/24 09:47 02/09/24 09:26 02/23/24 08:33 WBC 3.70 - 11.00 k/uL 4.20 3.45 (L) 3.78 2.90 (L) 3.25 (L) RBC 4.20 - 6.00 m/uL 3.79 (L) 3.36 (L) 4.32 3.48 (L) 3.74 (L) Hemoglobin 13.0 - 17.0 g/dL 11.4 (L) 10.2 (L) 13.3 10.8 (L) 11.8 (L) Hematocrit 39.0 - 51.0 % 35.2 (L) 30.9 (L) 40.4 31.8 (L) 35.7 (L) Platelet Count 150 - 400 k/uL 134 (L) 137 (L) 111 (L) 129 (L) 123 (L) MCV 80.0 - 100.0 fL 92.9 92.0 93.5 91.4 95.5 MCH 26.0 - 34.0 pg 30.1 30.4 30.8 31.0 31.6 MCHC 30.5 - 36.0 g/dL 32.4 33.0 32.9 34.0 33.1 MPV 9.0 - 12.7 fL 8.6 (L) 8.0 (L) 8.6 (L) 8.7 (L) 8.7 (L) RDW-CV 11.5 - 15.0 % 17.5 (H) 16.2 (H) 17.8 (H) 15.8 (H) 17.1 (H) (L): Data is abnormally low (H): Data is abnormally high Ferritin Date Value Ref Range Status 01/26/2024 2,884.0 (H) 30.3 - 565.7 ng/mL Final 12/01/2023 2,501.0 (H) 30.3 - 565.7 ng/mL Final 07/07/2023 2,308.0 (H) 30.3 - 565.7 ng/mL Final 04/25/2023 2,315.0 (H) 30.3 - 565.7 ng/mL Final 11/13/2009 416.4 (H) 18.0 - 300.0 ng/mL Final Iron Date Value Ref Range Status 01/26/2024 33 (L) 41 - 186 ug/dL Final 12/01/2023 46 41 - 186 ug/dL Final 07/07/2023 41 41 - 186 ug/dL Final 04/25/2023 54 41 - 186 ug/dL Final 08/22/2010 64 30 - 140 ug/dL Final TIBC Date Value Ref Range Status 01/26/2024 232 232 - 386 ug/dL Final 12/01/2023 201 (L) 232 - 386 ug/dL Final 07/07/2023 272 232 - 386 ug/dL Final 04/25/2023 263 232 - 386 ug/dL Final 08/22/2010 290 210 - 415 ug/dL Final Transferrin Saturation Date Value Ref Range Status 01/26/2024 14.2 (L) 15.0 - 57.0 % Final 12/01/2023 22.9 15.0 - 57.0 % Final 07/07/2023 15.1 15.0 - 57.0 % Final 04/25/2023 20.5 15.0 - 57.0 % Final 08/22/2010 22 11 - 46 % Final ASSESSMENT/PLAN: (D46.Z) MDS (myelodysplastic syndrome), low grade (HCC) (primary encounter diagnosis) (D46.9, D63.0) 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 -IPSS-R 2 (Normal cytogenetics and blasts >2-<5%); Low risk. -H/O AVMs and previous TANNER. -Previously discussed more definitive therapy including possible azacitidine should he develop neutropenia, significant thrombocytopenia or other indication for such therapy. -Definite improvement in counts. -BP under very good control. -Improvement in energy and stamina after getting injection. -Counts reviewed today Plan: -No Aranesp today. -Hgb parameter <11 g/dL. -Q3 week CBC/Possible Aranesp. -Monitor iron every 3 months. -OV in 6 weeks Tanna Shen APRN.MOTOR EXPERT I spent a total of 30 minutes on the date of the service which included preparing to see the patient, [id number] patient care, completing clinical documentation, and performing a medically appropriate examination. Portions of this note including HPI, ROS, impression/plan may have been copied forward as to provide important historical information essential in contributing to medical decision making. Documentation has been reviewed and edited as necessary to support clinical decision making for today's visit and to reflect my own independent evaluation of this patient. documented in this encounterOhio[facility]25 NoteHNO ID: [id number] Author: PARUL JORDAN LPN Service: ? Author Type: LICENSED NURSE Type: Progress Notes Filed: 05/03/2024 10:48 Note Text: Pt here for injection of Aranesp given SQ in left arm, pt tolerated well. [facility] History of Present illness Narrative* Parul Jordan LPN - 05/03/2024 10:47 AM EDT Pt here for injection of Aranesp given SQ in left arm, pt tolerated well. Parul Jordan LPN documented in this encounterOhiohealth [facility]03-10-2025 NoteHNO ID: [id number] Author: PARUL JORDAN LPN Service: ? Author Type: LICENSED NURSE Type: Progress Notes Filed: 05/03/2024 10:40 Note Text: Aranesp injection deferred. Pt did not meet treatment parameters. Hgb 12.6 Parul Jordan [facility]03-10-2025 History of Present illness Narrative* Parul Jordan LPN - 05/03/2024 10:39 AM EDT Aranesp injection deferred. Pt did not meet treatment parameters. Hgb 12.6 Parul Jordan LPN documented in this encounterOhiohealth [facility]02-24-20[facility] Radiology Diagnostic study note [facility] Imaging Services [address], [place] [address] Head/Neck Soft Tissue MR#: [id number] Acct: [id number] Name: CHANCE MUNOZ Rep #: [id number] : 1945 M 78 From: Bárbara Reyes DO PCP: Dr. Shreyas Amezquita, Status: [facility] Study:Head/Neck Soft Tissue Date of Exam: 04/19/24 Exam# [id number] Ordering Dr: Shreyas Amezquita DO PROCEDURE: Ultrasound of the salivary glands. REASON FOR EXAM: Small mass at the base of the left parotid gland. COMPARISON: Available TECHNIQUE: Targeted ultrasound of the left parotid gland was performed. FINDINGS: Ultrasound of the bilateral parotid and submandibular glands was obtained. The right submandibular gland measures up to 5.3 cm, 5.1 cm on the left. The right submandibular gland measures up to 3.7 cm, compared to 3.5 cm on the left. No discrete sonographic abnormality of the submandibular glands or right parotid gland. Sonographically normal-appearing lymph nodes near the bilateral parotid glands. At the superficial margin of the left parotid gland, at the site of the palpableabnormality, there is a 2 cm fairly simple appearing cystic structure, which extends into the deep margin of the overlying subcutaneous fat. No definite internal blood flow is demonstrated. No solid-appearing lesion of the left parotid gland. US/Head/Neck Soft Tissue IMPRESSION: 2 cm simple appearing cystic structure at the superficial margin of the left parotid gland, extending into the deep margin of the overlying subcutaneous fat, at the region of interest. No definite internal blood flow is demonstrated. No peripheral nodularity within this cystic structure. Suggest close clinical and/or sonographic follow-up. If there is clinical concern or patient anxiety, this could be aspirated under ultrasound guidance. No solid-appearing nodules of the major salivary glands. Reading Location: [facility] CC: Dr. Shreyas Amezquita, DO Organic Preparation Analyst: Signed [facility]02-10-2025 NoteHNO ID: [id number] Author: SANTIAGO COTTRELL LPN Service: ? Author Type: LICENSED NURSE Type: Progress Notes Filed: 04/05/2024 11:15 Note Text: Injection deferred HGB 11.2 Santiago Cottrell [facility]02-10-2025 History of Present illness Narrative* Santiago Cottrell LPN - 04/05/2024 11:12 AM EST Injection deferred HGB 11.2 Santiago Cottrell LPN documented in this encounterOhiohealth [facility]01-27-2025 NoteHNO ID: [id number] Author: PARUL JORDAN LPN Service: ? Author Type: LICENSED NURSE Type: Progress Notes Filed: 03/22/2024 09:36 Note Text: Aranesp injection deferred. Pt did not meet treatment parameters. Hgb 12.0 Parul Jordan [facility]01-27-2025 History of Present illness Narrative* Parul Jordan LPN - 03/22/2024 9:31 AM EST Aranesp injection deferred. Pt did not meet treatment parameters. Hgb 12.0 Parul Jordan LPN documented in this encounterOhiohealth [facility]01-14-2025 NoteHNO ID: [id number] Author: PARUL JORDAN LPN Service: ? Author Type: LICENSED NURSE Type: Progress Notes Filed: 03/09/2024 08:54 Note Text: Hgb 11.3. Aranesp injection deferred, treatment parameter not met. [facility] History of Present illness Narrative* Parul Jordan LPN - 03/09/2024 8:51 AM EST Hgb 11.3. Aranesp injection deferred, treatment parameter not met. Parul Jordan LPN documented in this encounterOhiohealth [facility]12-30-2024 History of Present illness Narrative* Tanna Shen - 02/23/2024 9:00 AM EST Oncologic problem(s): 1) MDS. HPI: The patient is a 78 year old male with PMHx of T2DM, CAD, asthma, hypothyroidism, thyroid nodule, BPH, DDD, testicular mass s/p orchiectomy 2016 benign, GERD, colon polyps and pancytopenia. Diagnosed with iron deficiency anemia initially dx in 2020. (Records from [facility] scanned). Has received IV iron in the past, unable to tolerate PO iron supplements due to GI upset. Last received Injectafer x2 at [facility] 03/2023. Per initial consultation: He states "I've been anemic since I got out of the service in ." Follows with Dr. Jane LAMBERT. Has had complete GI workup. Past 3 years - two EGDs, colonoscopies, occult stool, without bleeding. Denies fevers. Feels chills in the evenings for last several years. No recent illnesses or infections. No lumps or bumps. Notes diffuse pruritic rash "all over" about the last 3-4 weeks. Mostly extremities, was told he was allergic to mold but allergy test negative. Started back on allergy med last night. Tries not to take too frequently due to prostate issues. Rash showed up Nov just after receiving RSV vaccine. Serum sickness rxn, joint swelling. Bilateral lower extremity neuropathy improved with IV iron - gettingworse now. Possible mold exposure recently basement flooded, had a box that he missed in clean up [place], pesticide exposure. [place] used to spray (now banned) Used respirator at the time. 2017 retired from [employer], 30+ years, possible chemical exposures. [place] for [place] days -, possible agent orange exposure. He states was used where he was stationed 3 months prior to his arrival. No known family hx of cancer. Sister with syncopal episodes, mother guillain-barre." Current therapy: 1) BETY with Aranesp. Presents for ongoing hematologic management. Interim history: Started testing BG at home. Gaining weight. Trying to gain more. Ongoing sinus infection, allergic to most abx hasn't started doxy yet. Denies bleeding. No bowel or bladder changes. Taking allergy shots per PCP. Labs reviewed today. 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 Bronchiectasis (HCC) Depression Diverticulosis of colon (without mention of hemorrhage) Elevated bilirubin Esophagitis, unspecified GERD (gastroesophageal reflux disease) hiatal hernia Hypothyroid IBS (irritable bowel syndrome) Impaired fasting glucose MDS (myelodysplastic syndrome), low grade (HCC) 07/07/2023 Myalgia and myositis, unspecified Pancytopenia (HCC) Premature ventricular contractions Right upper lobe pulmonary infiltrate PAST SURGICAL HISTORY Procedure Laterality Date COLONOSCOPY FLX DX W/COLLJ SPEC WHEN PFRMD 01/28/05 Colonoscopy COLSC FLX W/RMVL OF TUMOR POLYP LESION SNARE TQ 04/29/2016 EGD TRANSORAL BIOPSY SINGLE/MULTIPLE 04/29/2016 ESOPHAGOGASTRODUODENOSCOPY TRANSORAL DIAGNOSTIC 01/28/05 EGD ORCHIECTOMY SIMPLE Left 12/2015 PAST SURGICAL HISTORY OF 2007 PVP prostate PAST SURGICAL HISTORY OF 07/03/1997 chest wall tumor- benign PAST SURGICAL HISTORY OF 02/12/01 gall bladder REMOVE TONSILS AND ADENOIDS; AGE 11 OVER ALLERGIES Allergen Reactions Prevacid [Lansopraz* Diarrhea Only the generic form Ceclor [Cefaclor] Itching Contact Metal Agent Rash Nexium [Esomeprazol* Itching Nortriptyline unknown Penicillins Itching Rsv Vac, Pref A And* Swelling Uroxatral [Alfuzosi* Intolerance numbness Current Outpatient Medications Medication Sig fluticasone (FLONASE ALLERGY RELIEF) 50 mcg/actuation nasal spray Use 1 [place] in each nostril as needed. polyethylene glycol 3350 17 gram packet Take 17 g by mouth once daily as needed. Dissolve dose in 4- 8 ounces of liquid and take as directed. albuterol sulfate 90 mcg/actuation breath activated powder inhaler Inhale 2 Puffs as instructed as needed. budesonide-formoterol (SYMBICORT) 160-4.5 mcg/actuation inhaler Inhale 2 Puffs as instructed two times a day. tamsulosin (FLOMAX) 0.4 mg Take 0.4 mg by mouth daily at bedtime. pantoprazole DR (PROTONIX) 40 mg tablet Take 40 mg by mouth two times a day. buPROPion XL (WELLBUTRIN XL) 150 mg 24 hr tablet Take 150 mg by mouth once daily. levothyroxine (SYNTHROID) 88 mcg tablet Take 88 mcg by mouth daily before breakfast. finasteride 5 mg tablet Take 1 tablet by mouth once daily. paroxetine (PAXIL) 20 mg ORAL tablet Take 1 tablet by mouth once daily. (Patient taking differently: Take 40 mg by mouth once daily.) METAMUCIL 100 % ORAL POWDER Take by mouth as needed. scopolamine (TRANSDERM-SCOP) patch 1.5 mg/72 hr (delivers 1 mg over 3 days) Apply 1 Patch as directed every 72 hours. as needed for vertigo (Patient not taking: Reported on 01/12/2024) Magnesium Oxide 250 mg magnesium tab Take 500 mg by mouth once daily. (Patient not taking: Reportedon 10/20/2023) docusate sodium (COLACE) 100 mg capsule Take 100 mg by mouth as needed. (Patient not taking: Reported on 10/20/2023) calcium-vitamin D3-vitamin K (CITRACAL-D3 SOFT CHEW) 500 mg-1,000 unit-40 mcg chew Take 2 tablets by mouth once daily. Lactobacillus acidophilus 10 billion cell cap Take 1 capsule by mouth once daily. MULTIVITAMIN TAB Take 1 tablet by mouth once daily. (Patient not taking: Reported on 01/12/2024) No current facility-administered medications for this visit. Social History Tobacco Use Smoking status: Never Smokeless tobacco: Never Vaping Use Vaping status: Never Used Substance Use Topics Alcohol use: No Drug use: No Family History Problem Relation Age of Onset Hypertension Mother Heart Mother not CAD, details unknown Diabetes Father age 57 Heart Father pacemaker, CAD other (other) Sister anemia Heart Sister Arthritis Sister Colon Cancer Other none Prostate Cancer Other none Complete review of systems otherwise negative except as noted above. ROS: All systems reviewed on 02/23/2024 with pertinent positives and negatives as outlined in the interval history. PHYSICAL EXAM: Vitals: Blood pressure 106/61, pulse 88, temperature 36.2 C (97.1 F), temperature source Temporal, weight 68.5 kg (151 lb), SpO2 98%. Well-appearing and in no acute distress. EYES: Sclerae are anicteric bilaterally. Heart: Regular rhythm. Extremities: No edema I have performed the physical exam today (02/23/2024) and have edited the note to correlate with current findings. LABS: Latest Reference Range & Units 12/29/23 09:28 01/12/24 09:22 01/26/24 09:47 02/09/24 09:26 02/23/24 08:33 WBC 3.70 - 11.00 k/uL 4.20 3.45 (L) 3.78 2.90 (L) 3.25 (L) RBC 4.20 - 6.00 m/uL 3.79 (L) 3.36 (L) 4.32 3.48 (L) 3.74 (L) Hemoglobin 13.0 - 17.0 g/dL 11.4 (L) 10.2 (L) 13.3 10.8 (L) 11.8 (L) Hematocrit 39.0 - 51.0 % 35.2 (L) 30.9 (L) 40.4 31.8 (L) 35.7 (L) Platelet Count 150 - 400 k/uL 134 (L) 137 (L) 111 (L) 129 (L) 123 (L) MCV 80.0 - 100.0 fL 92.9 92.0 93.5 91.4 95.5 MCH 26.0 - 34.0 pg 30.1 30.4 30.8 31.0 31.6 MCHC 30.5 - 36.0 g/dL 32.4 33.0 32.9 34.0 33.1 MPV 9.0 - 12.7 fL 8.6 (L) 8.0 (L) 8.6 (L) 8.7 (L) 8.7 (L) RDW-CV 11.5 - 15.0 % 17.5 (H) 16.2 (H) 17.8 (H) 15.8 (H) 17.1 (H) (L): Data is abnormally low (H): Data is abnormally high ASSESSMENT/PLAN: (D46.Z) MDS (myelodysplastic syndrome), low grade (HCC) (primary encounter diagnosis) (D46.9, D63.0) 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 -IPSS-R 2 (Normal cytogenetics and blasts >2-<5%); Low risk. -H/O AVMs and previous TANNER. -Previously discussed more definitive therapy including possible azacitidine should he develop neutropenia, significant thrombocytopenia or other indication for such therapy. -Definite improvement in counts. -BP under very good control. -Improvement in energy and stamina after getting injection. -Counts reviewed today Plan: -No Aranesp today. -Hgb parameter 11 g/dL. -Continue every other week CBC/Possible Aranesp. -Monitor iron every 3 months. Tanna Shen APRN.MOTOR EXPERT I spent a total of 30 minutes on the date of the service which included preparing to see the patient, [id number] patient care, completing clinical documentation, and performing a medically appropriate examination. Portions of this note including HPI, ROS, impression/plan may have been copied forward as to provide important historical information essential in contributing to medical decision making. Documentation has been reviewed and edited as necessary to support clinical decision making for today's visit and to reflect my own independent evaluation of this patient. documented in this encounterOhiohealth [facility]12-30-[facility] NoteHNO ID: [id number] Author: PARUL JORDAN LPN Service: ? Author Type: LICENSED NURSE Type: Progress Notes Filed: 02/23/2024 08:42 Note Text: Aranesp injection deferred. Pt did not meet treatment parameters. Hgb 11.8 Parul Jordan [facility]12-30-2024 History of Present illness Narrative* Parul Jordan LPN - 02/23/2024 8:39 AM EST Aranesp injection deferred. Pt did not meet treatment parameters. Hgb 11.8 Parul Jordan LPN documented in this encounterOhiohealth Arthur [facility]12-16-2024 NoteHNO ID: [id number] Author: PARUL JORDAN LPN Service: ? Author Type: LICENSED NURSE Type: Progress Notes Filed: 02/09/2024 10:22 Note Text: Patient here for injection of Aranesp. Given SQ in left arm. Patient tolerated well. Parul Jordan [facility]12-16-2024 History of Present illness Narrative* Parul Jordan LPN - 02/09/2024 10:20 AM EST Patient here for injection of Aranesp. Given SQ in left arm. Patient tolerated well. Parul Jordan LPN documented in this encounterOhiohealth [facility]11-18-2024 Nurse Note* Santiago Cottrell LPN - 01/12/2024 9:47 AM EST Patient presents with: Imm/Inj Pt is identified by name and birthdate: Yes. Allergies and medications reviewed. Latex allergy? No. Does this patient have: Unplanned weight loss or gain of greater than 10 pounds, or a change of appetite over the last year? No Does the patient have any concerns about safety in the home/falls? At risk due to: dizziness Has the patient fallen in the past year? Yes: Patient has the following symptoms: no symptoms at this time Does the patient have difficulty performing or completing routine daily living activities? No Does this patient have concerns about personal safety? No Is patient having pain? Pain: No=0 (pain 0 on a scale of 0-10). Health Maintenance: Reviewed and updated. Does patient have MyChart access or Caregiver proxy: yes Pt/Caregiver willingness and readiness to learn assessed: Yes. Barriers: none aranesp injection administered, left arm, tolerated well, no immediate adverse reactions noted. Santiago Cottrell LPN [facility]11-18-2024 Nurse Note* Santiago Cottrell LPN - 01/12/2024 9:47 AM EST Patient presents with: Imm/Inj Pt is identified by name and birthdate: Yes. Allergies and medications reviewed. Latex allergy? No. Does this patient have: Unplanned weight loss or gain of greater than 10 pounds, or a change of appetite over the last year? No Does the patient have any concerns about safety in the home/falls? At risk due to: dizziness Has the patient fallen in the past year? Yes: Patient has the following symptoms: no symptoms at this time Does the patient have difficulty performing or completing routine daily living activities? No Does this patient have concerns about personal safety? No Is patient having pain? Pain: No=0 (pain 0 on a scale of 0-10). Health Maintenance: Reviewed and updated. Does patient have MyChart access or Caregiver proxy: yes Pt/Caregiver willingness and readiness to learn assessed: Yes. Barriers: none aranesp injection administered, left arm, tolerated well, no immediate adverse reactions noted. Santiago Cottrell LPN documented in this encounterOhio[facility] Nurse Note* Parul Jordan LPN - 12/29/2023 9:45 AM EST Aranesp injection deferred, treatment parameter not met, Hgb 11.4. Parul Jordan LPN [facility]11-04-2024 Nurse Note* Parul Jordan LPN - 12/29/2023 9:45 AM EST Aranesp injection deferred, treatment parameter not met, Hgb 11.4. Parul Jordan LPN documented in this encounterOhio[facility] Nurse Note* Parul Jordan LPN - 12/15/2023 10:46 AM EDT Pt here for injection of Aranesp. Given SQ in right arm. Pt tolerated well. Parul Jordan LPN [facility]10-21-2024 Nurse Note* Parul Jordan LPN - 12/15/2023 10:46 AM EDT Pt here for injection of Aranesp. Given SQ in right arm. Pt tolerated well. Parul Jordan LPN documented in this encounterOhio[facility]-2024 Telephone encounter Note * Telephone Encounter - Belkys Barrios LPN - 12/01/2023 1:45 PM EDT Labs and a copy of this note faxed to PCP. Patient is aware of all information and verbalized understanding. He will contact his PCP to make an appointment. Belkys Barrios LPN [facility]10-07-2024 Miscellaneous Notes* Telephone Encounter - Belkys Barrios LPN - 12/01/2023 1:45 PM EDT Labs and a copy of this note faxed to PCP. Patient is aware of all information and verbalized understanding. He will contact his PCP to make an appointment. Belkys Barrios LPN * Telephone Encounter - Acosta Cruz DO - 12/01/2023 1:28 PM EDT His blood sugar today was 300 mg/dL. Does not look like he is on anything for diabetes. Tell him toeliminate sweets, sugars and significantly limit bread and pasta intake [facility]. Please fax a copy of lab work to his PCP. Aranesp would not be causing this. documented in this encounterOhio[facility]-07-2024 Telephone encounter Note * Telephone Encounter - Acosta Cruz DO - 12/01/2023 1:28 PM EDT His blood sugar today was 300 mg/dL. Does not look like he is on anything for diabetes. Tell him toeliminate sweets, sugars and significantly limit bread and pasta intake until [facility]. Please fax a copy of lab work to his PCP. Aranesp would not be causing this. [facility]10-07-2024 History of Present illness Narrative* Parul Jordan LPN - 12/01/2023 9:56 AM EDT Pt here for injection of Aranesp. Given SQ in right arm. Pt tolerated well. Parul Jordan LPN documented in this encounterOhiohealth [facility]-26-2024 Telephone encounter Note * Telephone Encounter - Jolie Carvalho LISW - 11/20/2023 2:24 PM EDT SOCIAL WORK FOLLOW UP NOTE: CANCER CENTER Pt noted on 1st time treatment report indicating need for a psychosocial assessment. Spoke with pt when pt here for OV, no significant needs or concerns present. Will follow up with pt as needed. Assessment Completed ALISA Bustillo [facility]09-26-2024 Miscellaneous Notes* Telephone Encounter - Jolie Carvalho LISW - 11/20/2023 2:24 PM EDT SOCIAL WORK FOLLOW UP NOTE: CANCER CENTER Pt noted on 1st time treatment report indicating need for a psychosocial assessment. Spoke with pt when pt here for OV, no significant needs or concerns present. Will follow up with pt as needed. Assessment Completed ALISA Bustillo documented in this encounterOhio[facility]-23-2024 Nurse Note* Santiago Cottrell LPN - 11/17/2023 10:44 AM EDT aranesp injection administered, left arm, tolerated well, no immediate adverse reactions noted. See OV notes Santiago Cottrell LPN [facility]09-23-2024 Nurse Note* Santiago Cottrell LPN - 11/17/2023 10:44 AM EDT aranesp injection administered, left arm, tolerated well, no immediate adverse reactions noted. See OV notes Santiago Cottrell LPN documented in this encounterOhiohealth [facility]-23-2024 History of Present illness Narrative* Acosta rCuz DO - 11/17/2023 10:09 AM EDT Oncologic problem(s): 1) MDS. HPI: The patient is a 78 year old male with PMHx of T2DM, CAD, asthma, hypothyroidism, thyroid nodule, BPH, DDD, testicular mass s/p orchiectomy 2016 benign, GERD, colon polyps and pancytopenia. Diagnosed with iron deficiency anemia initially dx in 2020. (Records from [facility] scanned). Has received IV iron in the past, unable to tolerate PO iron supplements due to GI upset. Last received Injectafer x2 at [facility] 03/2023. Per initial consultation: He states "I've been anemic since I got out of the service in ." Follows with Dr. Jane LAMBERT. Has had complete GI workup. Past 3 years - two EGDs, colonoscopies, occult stool, without bleeding. Denies fevers. Feels chills in the evenings for last several years. No recent illnesses or infections. No lumps or bumps. Notes diffuse pruritic rash "all over" about the last 3-4 weeks. Mostly extremities, was told he was allergic to mold but allergy test negative. Started back on allergy med last night. Tries not to take too frequently due to prostate issues. Rash showed up Nov just after receiving RSV vaccine. Serum sickness rxn, joint swelling. Bilateral lower extremity neuropathy improved with IV iron - gettingworse now. Possible mold exposure recently basement flooded, had a box that he missed in clean up [place], pesticide exposure. [place] used to spray (now banned) Used respirator at the time. 2017 retired from [employer], 30+ years, possible chemical exposures. [place] days , possible agent orange exposure. He states was used where he was stationed 3 months prior to his arrival. No known family hx of cancer. Sister with syncopal episodes, mother guillain-barre." Current therapy: 1) BETY with Aranesp. Presents for ongoing hematologic management. Interim history: Still having episodes of fatigue that last about 2-3 days.. 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 Bronchiectasis (HCC) Depression Diverticulosis of colon (without mention of hemorrhage) Elevated bilirubin Esophagitis, unspecified GERD (gastroesophageal reflux disease) hiatal hernia Hypothyroid IBS (irritable bowel syndrome) Impaired fasting glucose MDS (myelodysplastic syndrome), low grade (HCC) 07/07/2023 Myalgia and myositis, unspecified Pancytopenia (HCC) Premature ventricular contractions Right upper lobe pulmonary infiltrate PAST SURGICAL HISTORY Procedure Laterality Date COLONOSCOPY FLX DX W/COLLJ SPEC WHEN PFRMD 01/28/05 Colonoscopy COLSC FLX W/RMVL OF TUMOR POLYP LESION SNARE TQ 04/29/2016 EGD TRANSORAL BIOPSY SINGLE/MULTIPLE 04/29/2016 ESOPHAGOGASTRODUODENOSCOPY TRANSORAL DIAGNOSTIC 01/28/05 EGD ORCHIECTOMY SIMPLE Left 12/2015 PAST SURGICAL HISTORY OF 2007 PVP prostate PAST SURGICAL HISTORY OF 07/03/1997 chest wall tumor- benign PAST SURGICAL HISTORY OF 02/12/01 gall bladder REMOVE TONSILS AND ADENOIDS; AGE 11 OVER ALLERGIES Allergen Reactions Prevacid [Lansopraz* Diarrhea Only the generic form Ceclor [Cefaclor] Itching Contact Metal Agent Rash Nexium [Esomeprazol* Itching Nortriptyline unknown Penicillins Itching Rsv Vac, Pref A And* Swelling Uroxatral [Alfuzosi* Intolerance numbness Current Outpatient Medications Medication Sig fluticasone (FLONASE ALLERGY RELIEF) 50 mcg/actuation nasal spray Use 1 [place] in each nostril as needed. polyethylene glycol 3350 17 gram packet Take 17 g by mouth once daily. Dissolve dose in 4 - 8 ounces of liquid and take as directed. albuterol sulfate 90 mcg/actuation breath activated powder inhaler Inhale 2 Puffs as instructed as needed. budesonide-formoterol (SYMBICORT) 160-4.5 mcg/actuation inhaler Inhale 2 Puffs as instructed two times a day. tamsulosin (FLOMAX) 0.4 mg Take 0.4 mg by mouth daily at bedtime. calcium-vitamin D3-vitamin K (CITRACAL-D3 SOFT CHEW) 500 mg-1,000 unit-40 mcg chew Take 2 tablets by mouth once daily. Lactobacillus acidophilus 10 billion cell cap Take 1 capsule by mouth once daily. pantoprazole DR (PROTONIX) 40 mg tablet Take 40 mg by mouth once daily. buPROPion XL (WELLBUTRIN XL) 150 mg 24 hr tablet Take 150 mg by mouth once daily. levothyroxine (SYNTHROID) 88 mcg tablet Take 88 mcg by mouth daily before breakfast. finasteride 5 mg tablet Take 1 tablet by mouth once daily. paroxetine (PAXIL) 20 mg ORAL tablet Take 1 tablet by mouth once daily. (Patient taking differently: Take 40 mg by mouth once daily.) METAMUCIL 100 % ORAL POWDER Take by mouth as needed. MULTIVITAMIN TAB Take 1 tablet by mouth once daily. Magnesium Oxide 250 mg magnesium tab Take 500 mg by mouth once daily. (Patient not taking: Reportedon 10/20/2023) docusate sodium (COLACE) 100 mg capsule Take 100 mg by mouth as needed. (Patient not taking: Reported on 10/20/2023) No current facility-administered medications for this visit. Social History Tobacco Use Smoking status: Never Smokeless tobacco: Never Vaping Use Vaping status: Never Used Substance Use Topics Alcohol use: No Drug use: No Family History Problem Relation Age of Onset Hypertension Mother Heart Mother not CAD, details unknown Diabetes Father age 57 Heart Father pacemaker, CAD other (other) Sister anemia Heart Sister Arthritis Sister Colon Cancer Other none Prostate Cancer Other none Complete review of systems otherwise negative except as noted above. PHYSICAL EXAM: Vitals: Blood pressure 111/68, pulse 91, temperature 36.9 C (98.4 F), temperature source Temporal, weight 72.3 kg (159 lb 8 oz), SpO2 96%. Well-appearing and in no acute distress. EYES: Sclerae are anicteric bilaterally. Heart: Regular rhythm. 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 -IPSS-R 2 (Normal cytogenetics and blasts >2-<5%); Low risk. -H/O AVMs and previous TANNER. -Previously discussed more definitive therapy including possible azacitidine should he develop neutropenia, significant thrombocytopenia or other indication for such therapy. -Definite improvement in counts. Platelets now normal. -BP under very good control. -Improvement in energy and stamina after getting injection. Plan: -Okay for Aranesp today. -Increase Hgb parameter to 11 g/dL. -Continue every other week CBC/Possible Aranesp. -Monitor iron every 3 months. Portions of this documentation were copied and pasted from previous office visit notes in order to provide a cohesive continuity of the history. The note has been reviewed and edited and updated as necessary. I spent a total of 15 minutes on the date of the service which included preparing to see the patient, [id number] patient care, completing clinical documentation, obtaining and/or reviewing separately obtained history, performing a medically appropriate examination, counseling and educating the pat ient/family/caregiver, ordering medications, tests, or procedures, communicating with other HCPs (not separately reported), and communicating results to the patient/family/caregiver. Acosta Cruz DO documented in this encounterOhio[facility] Nurse Note* Parul Jordan LPN - 11/03/2023 10:20 AM EDT Pt here for injection of Aranesp. Given SQ in right arm. Pt tolerated well. Parul Jordan LPN [facility]09-09-2024 Nurse Note* Parul Jordan LPN - 11/03/2023 10:20 AM EDT Pt here for injection of Aranesp. Given SQ in right arm. Pt tolerated well. Parul Jordan LPN documented in this encounterOhiohealth [facility]-26-2024 History of Present illness Narrative* Parul Jordan LPN - 10/20/2023 9:41 AM EDT Pt here for injection of Aranesp. Given SQ in left arm. Pt tolerated well. Denies any bleeding. Parul Jordan LPN documented in this encounterOhiohealth [facility]08-12-2024 History of Present illness Narrative* Parul Jordan LPN - 10/06/2023 10:20 AM EDT Treatment deferred, treatment parameter not met, Hgb 10.1 Parul Jordan LPN documented in this encounterOhiohealth [facility]-29-20[facility] Nurse Note* Parul Jordan LPN - 09/22/2023 9:35 AM EDT aranesp injection deferred. Pt did not meet treatment parameters. Hgb 10.2 Parul Jordan LPN [facility]07-29-2024 Nurse Note* Parul Jordan LPN - 09/22/2023 9:35 AM EDT aranesp injection deferred. Pt did not meet treatment parameters. Hgb 10.2 Parul Jordan LPN documented in this encounterOhiohealth [facility]-2024 History of Present illness Narrative* Parul Jordan LPN - 09/10/2023 9:38 AM EDT Pt here for injection of Aranesp. Given SQ in right arm. Pt tolerated well. Parul Jordan LPN documented in this encounterOhiohealth [facility]-20[facility] Nurse Note* Parul Jordan LPN - 09/10/2023 9:20 AM EDT Pt here for injection of Aranesp. Given SQ in right. Pt tolerated well. Parul Jordan LPN [facility]07-17-2024 Nurse Note* Parul Jordan LPN - 09/10/2023 9:20 AM EDT Pt here for injection of Aranesp. Given SQ in right. Pt tolerated well. Parul Jordan LPN documented in this encounterOhiohealth [facility]07-01-2024 History of Present illness Narrative* Parul Jordan LPN - 08/25/2023 9:48 AM EDT Aranesp injection deferred, treatment parameters not met, hgb 10.6 Parul Jordan LPN documented in this encounterOhiohealth [facility]06-29-2024 Telephone encounter Note * Telephone Encounter - Karen Negro RN - 08/23/2023 10:53 AM EDT Error. Reason for Disposition Caller has already spoken with another triager and has no further questions. Protocols used: No Contact or Duplicate Contact [id number] [facility] [id number] Miscellaneous Notes* Telephone Encounter - Karen Negro RN - 08/23/2023 10:53 AM EDT Error. Reason for Disposition Caller has already spoken with another triager and has no further questions. Protocols used: No Contact or Duplicate Contact [id number] documented in this [facility]06-17-2024 History of Present illness Narrative* Acosta Cruz, DO - 08/11/2023 10:02 AM EDT Oncologic problem(s): 1) MDS. HPI: The patient is a 77 year old male with PMHx of T2DM, CAD, asthma, hypothyroidism, thyroid nodule, BPH, DDD, testicular mass s/p orchiectomy 2016 benign, GERD, colon polyps and pancytopenia. Diagnosed with iron deficiency anemia initially dx in 2020. (Records from [facility] scanned). Has received IV iron in the past, unable to tolerate PO iron supplements due to GI upset. Last received Injectafer x2 at [facility] 03/2023. Per initial consultation: He states "I've been anemic since I got out of the service in ." Follows with Dr. Jane LAMBERT. Has had complete GI workup. Past 3 years - two EGDs, colonoscopies, occult stool, without bleeding. Denies fevers. Feels chills in the evenings for last several years. No recent illnesses or infections. No lumps or bumps. Notes diffuse pruritic rash "all over" about the last 3-4 weeks. Mostly extremities, was told he was allergic to mold but allergy test negative. Started back on allergy med last night. Tries not to take too frequently due to prostate issues. Rash showed up Nov just after receiving RSV vaccine. Serum sickness rxn, joint swelling. Bilateral lower extremity neuropathy improved with IV iron - gettingworse now. Possible mold exposure recently basement flooded, had a box that he missed in clean up [place], pesticide exposure. [place] used to spray (now banned) Used respirator at the time. 2017 retired from [employer], 30+ years, possible chemical exposures. [place] days 66[place]67, possible agent orange exposure. He states was used where he was stationed 3 months prior to his arrival. No known family hx of cancer. Sister with syncopal episodes, mother guillain-barre." Current therapy: 1) BETY with Aranesp. Presents for ongoing hematologic management. Interim history: Tolerated and responded well to first Aranesp. Better energy. Still seeing Dr. Giron for itchy rash arms. No unusual bleeding or unexplained bruising. 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 Bronchiectasis (HCC) Depression Diverticulosis of colon (without mention of hemorrhage) Elevated bilirubin Esophagitis, unspecified GERD (gastroesophageal reflux disease) hiatal hernia Hypothyroid IBS (irritable bowel syndrome) Impaired fasting glucose MDS (myelodysplastic syndrome), low grade (HCC) 07/07/2023 Myalgia and myositis, unspecified Pancytopenia (HCC) Premature ventricular contractions Right upper lobe pulmonary infiltrate PAST SURGICAL HISTORY Procedure Laterality Date COLONOSCOPY FLX DX W/COLLJ SPEC WHEN PFRMD 01/28/05 Colonoscopy COLSC FLX W/RMVL OF TUMOR POLYP LESION SNARE TQ 04/29/2016 EGD TRANSORAL BIOPSY SINGLE/MULTIPLE 04/29/2016 ESOPHAGOGASTRODUODENOSCOPY TRANSORAL DIAGNOSTIC 01/28/05 EGD ORCHIECTOMY SIMPLE Left 12/2015 PAST SURGICAL HISTORY OF 2007 PVP prostate PAST SURGICAL HISTORY OF 07/03/1997 chest wall tumor- benign PAST SURGICAL HISTORY OF 02/12/01 gall bladder REMOVE TONSILS AND ADENOIDS; AGE 11 OVER ALLERGIES Allergen Reactions Prevacid [Lansopraz* Diarrhea Only the generic form Ceclor [Cefaclor] Itching Contact Metal Agent Rash Nexium [Esomeprazol* Itching Nortriptyline unknown Penicillins Itching Rsv Vac, Pref A And* Swelling Uroxatral [Alfuzosi* Intolerance numbness Current Outpatient Medications Medication Sig fluticasone (FLONASE ALLERGY RELIEF) 50 mcg/actuation nasal spray Use 1 [place] in each nostril as needed. polyethylene glycol 3350 17 gram packet Take 17 g by mouth once daily. Dissolve dose in 4 - 8 ounces of liquid and take as directed. Magnesium Oxide 250 mg magnesium tab Take 500 mg by mouth once daily. albuterol sulfate 90 mcg/actuation breath activated powder inhaler Inhale 2 Puffs as instructed as needed. docusate sodium (COLACE) 100 mg capsule Take 100 mg by mouth as needed. budesonide-formoterol (SYMBICORT) 160-4.5 mcg/actuation inhaler Inhale 2 Puffs as instructed two times a day. tamsulosin (FLOMAX) 0.4 mg Take 0.4 mg by mouth daily at bedtime. calcium-vitamin D3-vitamin K (CITRACAL-D3 SOFT CHEW) 500 mg-1,000 unit-40 mcg chew Take 2 tablets by mouth once daily. Lactobacillus acidophilus 10 billion cell cap Take 1 capsule by mouth once daily. pantoprazole DR (PROTONIX) 40 mg tablet Take 40 mg by mouth once daily. buPROPion XL (WELLBUTRIN XL) 150 mg 24 hr tablet Take 150 mg by mouth once daily. levothyroxine (SYNTHROID) 88 mcg tablet Take 88 mcg by mouth daily before breakfast. finasteride 5 mg tablet Take 1 tablet by mouth once daily. paroxetine (PAXIL) 20 mg ORAL tablet Take 1 tablet by mouth once daily. (Patient taking differently: Take 40 mg by mouth once daily.) METAMUCIL 100 % ORAL POWDER Take by mouth as needed. MULTIVITAMIN TAB Take 1 tablet by mouth once daily. No current facility-administered medications for this visit. Facility-Administered Medications Ordered in Other Visits Medication Dose Route Frequency NaCl 0.9% iv infusion 500-999 mL/hr INTRAVENOUS PRN diphenhydrAMINE 50 mg injection (BENADRYL) 50 mg INTRAVENOUS PRN hydrocortisone sodium succinate (PF) 100 mg injection (Solu-CORTEF) 100 mg INTRAVENOUS PRN EPINEPHrine HCl (PF) 1 mg/mL (1 mL) 0.3 mg injection 0.3 mg INTRAMUSCULAR PRN Social History Tobacco Use Smoking status: Never Smokeless tobacco: Never Vaping Use Vaping Use: Never used Substance Use Topics Alcohol use: No Drug use: No Family History Problem Relation Age of Onset Hypertension Mother Heart Mother not CAD, details unknown Diabetes Father age 57 Heart Father pacemaker, CAD other (other) Sister anemia Heart Sister Arthritis Sister Colon Cancer Other none Prostate Cancer Other none Complete review of systems otherwise negative except as noted above. PHYSICAL EXAM: Vitals: Blood pressure 92/56, pulse 77, temperature 36.4 C (97.6 F), temperature source Temporal, weight 75.8 kg (167 lb), SpO2 97%. Well-appearing and in no acute distress. EYES: Sclerae are anicteric bilaterally. Heart: Regular rhythm. LABS: Latest Ref Rng 08/11/2023 WBC 3.70 - 11.00 k/uL 3.57 (L) RBC 4.20 - 6.00 m/uL 3.10 (L) Hemoglobin 13.0 - 17.0 g/dL 9.8 (L) Hematocrit 39.0 - 51.0 % 29.5 (L) MCV 80.0 - 100.0 fL 95.2 MCH 26.0 - 34.0 pg 31.6 MCHC 30.5 - 36.0 g/dL 33.2 RDW-CV 11.5 - 15.0 % 14.2 Platelet Count 150 - 400 k/uL 152 MPV 9.0 - 12.7 fL 8.1 (L) Neut% % 75.9 Abs Neut (ANC) 1.45 - 7.50 k/uL 2.71 Lymph% % 15.4 Abs Lymph 1.00 - 4.00 k/uL 0.55 (L) [place]% % 5.9 Abs [place] <0.87 k/uL 0.21 Eosin% % 0.3 Abs Eosin <0.46 k/uL <0.03 Baso% % 0.3 Abs Baso <0.11 k/uL <0.03 Immature Gran % % 2.2 IMMATURE GRANS (ABS) <0.10 k/uL 0.08 NRBC /100 WBC 0.8 Absolute nRBC <0.01 k/uL 0.03 (H) DTYPE Auto ASSESSMENT/PLAN: (D46.9) MDS (myelodysplastic syndrome) (HCC) (primary encounter diagnosis) (D64.9) Anemia, unspecified type (D69.6) Thrombocytopenia (HCC) Assessment: -MDS with low blasts (MDS-LB). -IPSS-R 2 (Normal cytogenetics and blasts >2-<5%); Low risk. -H/O AVMs and previous TANNER. -Reviewed CBC. No thrombocytopenia at this time. Low normal. No bleeding issues. [place] an increase in energy following first Aranesp administration. Significant increase in hemoglobin. -Previously discussed more definitive therapy including possible azacitidine should he develop neutropenia, significant thrombocytopenia or other indication for such therapy. -Discussed possibly rotating to an every 3-week schedule since he did not require an Aranesp injection 2 weeks after his first one, but required 1 today which is 6 weeks. So monthly schedule may be too long an interval. Plan: -Continue every other week CBC/Possible Aranesp. -Monitor iron every 3 months. Portions of this documentation were copied and pasted from previous office visit notes in order to provide a cohesive continuity of the history. The note has been reviewed and edited and updated as necessary. I spent a total of 15 minutes on the date of the service which included preparing to see the patient, [id number] patient care, completing clinical documentation, obtaining and/or reviewing separately obtained history, performing a medically appropriate examination, counseling and educating the pat ient/family/caregiver, ordering medications, tests, or procedures, communicating with other HCPs (not separately reported), and communicating results to the patient/family/caregiver. Acosta Cruz DO documented in this encounterOhio[facility] Nurse Note* Santiago Cottrell LPN - 08/11/2023 9:45 AM EDT Aranesp injection administered, right arm, tolerated well, no immediate adverse reactions noted. See office notes Santiago Cottrell LPN [facility]-17-[facility] Nurse Note* Santiago Cottrell LPN - 08/11/2023 9:45 AM EDT Aranesp injection administered, right arm, tolerated well, no immediate adverse reactions noted. See office notes Santiago Cottrell LPN documented in this encounterOhiohealth [facility]06-03-2024 Nurse Note* Parul Jordan LPN - 07/28/2023 9:57 AM EDT Aranesp injection deferred, Hgb 11.2. Parul Jordan LPN [facility]06-03-2024 Nurse Note* Parul Jordan LPN - 07/28/2023 9:57 AM EDT Aranesp injection deferred, Hgb 11.2. Parul Jordan LPN documented in this encounterOhiohealth [facility]05-23-2024 Telephone encounter Note * Telephone Encounter - Jolie Carvalho LISW - 07/17/2023 2:55 PM EDT SOCIAL WORK FOLLOW UP NOTE: [facility] met with pt. Pt asking for a letter with his diagnosis information and treatment plan signed by physician to give to the [employer] for assistance with paying for medical bills. Letter drafted and reviewed and signed by physician. Letter given to pt and copy sent to internal scanning. No other needs identified. ALISA Bustillo [facility]05-23-2024 Miscellaneous Notes* Telephone Encounter - Jolie Carvalho LISW - 07/17/2023 2:55 PM EDT SOCIAL WORK FOLLOW UP NOTE: [facility] met with pt. Pt asking for a letter with his diagnosis information and treatment plan signed by physician to give to the [employer] for assistance with paying for medical bills. Letter drafted and reviewed and signed by physician. Letter given to pt and copy sent to internal scanning. No other needs identified. ALISA Bustillo documented in this encounterOhiohealth [facility]05-21-2024 History of Present illness Narrative* Parul Jordan LPN - 07/15/2023 3:52 PM EDT Pt here for injection of Aranesp. Given SQ in right arm. Pt tolerated well. Patient observed for signs and symptoms of adverse reactions, none noted. Parul Jordan LPN documented in this encounterOhiohealth [facility]05-17-2024 Telephone encounter Note * Telephone Encounter - German Sánchez - 07/11/2023 10:53 AM EDT The patient is active with Medicare A & B along with [facility] AARP Supplement . The patient's financial responsibility should be $0 for each treatment in 2023 once the OOP has been reached. The patient's primary insurance is expected to pay the first 80% of the financial responsibility and the secondary insurance is expected to pay the remaining 20%. The patient does not have a cancer diagnosis ora chemo/radiation regimen. No further Financial Navigator intervention is needed at this time. [facility] Miscellaneous Notes* Telephone Encounter - German Sánchez - 07/11/2023 10:53 AM EDT The patient is active with Medicare A & B along with [facility] AARP Supplement . The patient's financial responsibility should be $0 for each treatment in 2023 once the OOP has been reached. The patient's primary insurance is expected to pay the first 80% of the financial responsibility and the secondary insurance is expected to pay the remaining 20%. The patient does not have a cancer diagnosis ora chemo/radiation regimen. No further Financial Navigator intervention is needed at this time. documented in this encounterOhiohealth [facility]05-15-2024 Telephone encounter Note * Telephone Encounter - Deidre Royal RN - 07/09/2023 9:16 AM EDT [place] Care Coordination FOLLOW-UP NOTE Patient identified by name and date of . YES Spoke to patient Summary: (Reason for follow-up) Questions regarding labs and aranesp Concerns: (New Barriers to care) Patient called with concerns that he is starting aranesp next week, he had labs drawn 5/13, and hisinjection is past 7 day window. Patient informed he is scheduled to have a CBC redrawn prior to hisappointment on 07/14. Patient stated he was not aware of that and started understanding. Patient wasgrateful for the call. New Referrals Needed: No Is the patient having any pain? no Medication questions or concerns? yes discussed, see above Line, drain, or catheter education given? N/A Patient verbalized when to seek Medical Attention and an understanding of after- hours phone numberand process: Yes Care Coordination Plan: No further follow up needed at this time Deidre Royal RN July 09, 2023 [facility]05-15-2024 Miscellaneous Notes* Telephone Encounter - Deidre Royal RN - 07/09/2023 9:16 AM EDT [place] Care Coordination FOLLOW-UP NOTE Patient identified by name and date of . YES Spoke to patient Summary: (Reason for follow-up) Questions regarding labs and aranesp Concerns: (New Barriers to care) Patient called with concerns that he is starting aranesp next week, he had labs drawn 5, and hisinjection is past 7 day window. Patient informed he is scheduled to have a CBC redrawn prior to hisappointment on 07/14. Patient stated he was not aware of that and started understanding. Patient wasgrateful for the call. New Referrals Needed: No Is the patient having any pain? no Medication questions or concerns? yes discussed, see above Line, drain, or catheter education given? N/A Patient verbalized when to seek Medical Attention and an understanding of after- hours phone numberand process: Yes Care Coordination Plan: No further follow up needed at this time Deidre Royal RN July 09, 2023 documented in this encounterOhiohealth [facility]05-13-2024 History of Present illness Narrative* Acosta Cruz DO - 07/07/2023 11:21 AM EDT Oncologic problem(s): 1) MDS. Elements copied from Tanna Shen's [employer] note dated 04/25/2023 have been reviewed and updated where appropriate and all reflect current assessment and medical decision making during today's encounter. HPI: The patient is a 77 year old male with PMHx of T2DM, CAD, asthma, hypothyroidism, thyroid nodule, BPH, DDD, testicular mass s/p orchiectomy 2016 benign, GERD, colon polyps and pancytopenia. Diagnosed with iron deficiency anemia initially dx in 2020. (Records from [facility] scanned). Has received IV iron in the past, unable to tolerate PO iron supplements due to GI upset. Last received Injectafer x2 at [facility] 03/2023. He states "I've been anemic since I got out of the service in ." Follows with Dr. Jane LAMBERT. Has had complete GI workup. Past 3 years - two EGDs, colonoscopies, occult stool, without bleeding. Denies fevers. Feels chills in the evenings for last several years. No recent illnesses or infections. No lumps or bumps. Notes diffuse pruritic rash "all over" about the last 3-4 weeks. Mostly extremities, was told he was allergic to mold but allergy test negative. Started back on allergy med last night. Tries not to take too frequently due to prostate issues. Rash showed up Nov just after receiving RSV vaccine. Serum sickness rxn, joint swelling. Bilateral lower extremity neuropathy improved with IV iron - gettingworse now. Possible mold exposure recently basement flooded, had a box that he missed in clean up [place], pesticide exposure. [place] used to spray (now banned) Used respirator at the time. 2017 retired from [employer], 30+ years, possible chemical exposures. [place] for [place] days , possible agent orange exposure. He states was used where he was stationed 3 months prior to his arrival. No known family hx of cancer. Sister with syncopal episodes, mother guillain-barre." Presents for ongoing hematologic management. Interim history: He has been staying active. His is under my care for metastatic HER2 positive breast cancer. She requires a lot of assistance around the home. He is not short of breath with moderate exertion but fatigues very easily. No unusual bleeding or unexplained bruising. PAST MEDICAL HISTORY Diagnosis Date Acute gastritis without mention of hemorrhage Anemia Bladder neck obstruction 03/11/2005 Bronchiectasis (HCC) Depression Diverticulosis of colon (without mention of hemorrhage) Elevated bilirubin Esophagitis, unspecified GERD (gastroesophageal reflux disease) hiatal hernia Hypothyroid IBS (irritable bowel syndrome) Impaired fasting glucose Myalgia and myositis, unspecified Pancytopenia (HCC) Premature ventricular contractions Right upper lobe pulmonary infiltrate PAST SURGICAL HISTORY Procedure Laterality Date COLONOSCOPY FLX DX W/COLLJ SPEC WHEN PFRMD 01/28/05 Colonoscopy COLSC FLX W/RMVL OF TUMOR POLYP LESION SNARE TQ 04/29/2016 EGD TRANSORAL BIOPSY SINGLE/MULTIPLE 04/29/2016 ESOPHAGOGASTRODUODENOSCOPY TRANSORAL DIAGNOSTIC 01/28/05 EGD ORCHIECTOMY SIMPLE Left 12/2015 PAST SURGICAL HISTORY OF 2007 PVP prostate PAST SURGICAL HISTORY OF 07/03/1997 chest wall tumor- benign PAST SURGICAL HISTORY OF 02/12/01 gall bladder REMOVE TONSILS AND ADENOIDS; AGE 11 OVER ALLERGIES Allergen Reactions Prevacid [Lansopraz* Diarrhea Only the generic form Ceclor [Cefaclor] Itching Contact Metal Agent Rash Nexium [Esomeprazol* Itching Nortriptyline unknown Penicillins Itching Uroxatral [Alfuzosi* Intolerance numbness Current Outpatient Medications Medication Sig fluticasone (FLONASE ALLERGY RELIEF) 50 mcg/actuation nasal spray Use 1 [place] in each nostril as needed. polyethylene glycol 3350 17 gram packet Take 17 g by mouth once daily. Dissolve dose in 4 - 8 ounces of liquid and take as directed. Magnesium Oxide 250 mg magnesium tab Take 500 mg by mouth once daily. albuterol sulfate 90 mcg/actuation breath activated powder inhaler Inhale 2 Puffs as instructed as needed. docusate sodium (COLACE) 100 mg capsule Take 100 mg by mouth as needed. budesonide-formoterol (SYMBICORT) 160-4.5 mcg/actuation inhaler Inhale 2 Puffs as instructed two times a day. tamsulosin (FLOMAX) 0.4 mg Take 0.4 mg by mouth daily at bedtime. calcium-vitamin D3-vitamin K (CITRACAL-D3 SOFT CHEW) 500 mg-1,000 unit-40 mcg chew Take 2 tablets by mouth once daily. Lactobacillus acidophilus 10 billion cell cap Take 1 capsule by mouth once daily. pantoprazole DR (PROTONIX) 40 mg tablet Take 40 mg by mouth once daily. buPROPion XL (WELLBUTRIN XL) 150 mg 24 hr tablet Take 150 mg by mouth once daily. levothyroxine (SYNTHROID) 88 mcg tablet Take 88 mcg by mouth daily before breakfast. finasteride 5 mg tablet Take 1 tablet by mouth once daily. paroxetine (PAXIL) 20 mg ORAL tablet Take 1 tablet by mouth once daily. (Patient taking differently: Take 40 mg by mouth once daily.) METAMUCIL 100 % ORAL POWDER Take by mouth as needed. MULTIVITAMIN TAB Take 1 tablet by mouth once daily. No current facility-administered medications for this visit. Social History Tobacco Use Smoking status: Never Smokeless tobacco: Never Vaping Use Vaping Use: Never used Substance Use Topics Alcohol use: No Drug use: No Family History Problem Relation Age of Onset Hypertension Mother Heart Mother not CAD, details unknown Diabetes Father age 57 Heart Father pacemaker, CAD other (other) Sister anemia Heart Sister Arthritis Sister Colon Cancer Other none Prostate Cancer Other none Complete review of systems otherwise negative except as noted above. PHYSICAL EXAM: Vitals: Blood pressure 112/67, pulse 92, temperature 36.5 C (97.7 F), temperature source Temporal, weight 75.5 kg (166 lb 8 oz), SpO2 98%. Well-appearing and in no acute distress. EYES: Sclerae are anicteric bilaterally. Heart: Regular rhythm LABS: Latest Ref Rng 07/07/2023 WBC 3.70 - 11.00 k/uL 4.13 (P) RBC 4.20 - 6.00 m/uL 3.02 (L) (P) Hemoglobin 13.0 - 17.0 g/dL 9.6 (L) (P) Hematocrit 39.0 - 51.0 % 28.6 (L) (P) MCV 80.0 - 100.0 fL 94.7 (P) MCH 26.0 - 34.0 pg 31.8 (P) MCHC 30.5 - 36.0 g/dL 33.6 (P) RDW-CV 11.5 - 15.0 % 15.0 (P) Platelet Count 150 - 400 k/uL 123 (L) (P) MPV 9.0 - 12.7 fL 8.2 (L) (P) ASSESSMENT/PLAN: (D46.9) MDS (myelodysplastic syndrome) (HCC) (primary encounter diagnosis) (D64.9) Anemia, unspecified type (D69.6) Thrombocytopenia (HCC) Assessment: -Findings consistent with MDS with low blasts (MDS-LB). -IPSS-R 2 (Normal cytogenetics and blasts >2-<5%); Low risk. -H/O AVMs and previous TANNER. -Reviewed CBC. Thrombocytopenia remains mild. Currently not on antiplatelet agents or anticoagulation. He has no bleeding or unexplained bruising. Anemia has become more symptomatic. Again discussed plan continue to start BETY therapy (endogenous erythropoietin was less than 50 when measured in April). -Also discussed more definitive therapy including possible azacitidine should he develop neutropenia, significant thrombocytopenia or other indication for such therapy. Plan: -Recheck iron and erythropoietin today. -Begin every other week Aranesp. -Monitor iron every 3 months. Portions of this documentation were copied and pasted from previous office visit notes in order to provide a cohesive continuity of the history. The note has been reviewed and edited and updated as necessary. I spent a total of 20 minutes on the date of the service which included preparing to see the patient, [id number] patient care, completing clinical documentation, obtaining and/or reviewing separately obtained history, performing a medically appropriate examination, counseling and educating the pat ient/family/caregiver, ordering medications, tests, or procedures, communicating with other HCPs (not separately reported), and communicating results to the patient/family/caregiver. Acosta Cruz DO documented in this encounterOhiohealth [facility]04-12-2024 History of Present illness Narrative* Acosta Cruz DO - 06/06/2023 10:20 AM EDT Oncologic problem(s): 1) MDS. Elements copied from Tanna Shen's [employer] note dated 04/25/2023 have been reviewed and updated where appropriate and all reflect current assessment and medical decision making during today's encounter. HPI: The patient is a 77 year old male with PMHx of T2DM, CAD, asthma, hypothyroidism, thyroid nodule, BPH, DDD, testicular mass s/p orchiectomy 2016 benign, GERD, colon polyps and pancytopenia. Diagnosed with iron deficiency anemia initially dx in 2020. (Records from [facility] scanned). Has received IV iron in the past, unable to tolerate PO iron supplements due to GI upset. Last received Injectafer x2 at [facility] 03/2023. He states "I've been anemic since I got out of the service in ." Follows with Dr. Jane LAMBERT. Has had complete GI workup. Past 3 years - two EGDs, colonoscopies, occult stool, without bleeding. Denies fevers. Feels chills in the evenings for last several years. No recent illnesses or infections. No lumps or bumps. Notes diffuse pruritic rash "all over" about the last 3-4 weeks. Mostly extremities, was told he was allergic to mold but allergy test negative. Started back on allergy med last night. Tries not to take too frequently due to prostate issues. Rash showed up Nov just after receiving RSV vaccine. Serum sickness rxn, joint swelling. Bilateral lower extremity neuropathy improved with IV iron - gettingworse now. Possible mold exposure recently basement flooded, had a box that he missed in clean up [place], pesticide exposure. [place] used to spray (now banned) Used respirator at the time. 2017 retired from [employer], 30+ years, possible chemical exposures. [place] days , possible agent orange exposure. He states was used where he was stationed 3 months prior to his arrival. No known family hx of cancer. Sister with syncopal episodes, mother guillain-barre." Presents for ongoing hematologic management. Interim history: Underwent bone marrow biopsy. Still has rash predominantly forearms and ankles. Thinks it may have been secondary to one of the inert ingredients in generic Claritin. No worse than previously. Mild fatigue. No cardiovascular symptoms presently. PAST MEDICAL HISTORY Diagnosis Date Acute gastritis without mention of hemorrhage Anemia Bladder neck obstruction 03/11/2005 Bronchiectasis (HCC) Depression Diverticulosis of colon (without mention of hemorrhage) Elevated bilirubin Esophagitis, unspecified GERD (gastroesophageal reflux disease) hiatal hernia Hypothyroid IBS (irritable bowel syndrome) Impaired fasting glucose Myalgia and myositis, unspecified Pancytopenia (HCC) Premature ventricular contractions Right upper lobe pulmonary infiltrate PAST SURGICAL HISTORY Procedure Laterality Date COLONOSCOPY FLX DX W/COLLJ SPEC WHEN PFRMD 01/28/05 Colonoscopy COLSC FLX W/RMVL OF TUMOR POLYP LESION SNARE TQ 04/29/2016 EGD TRANSORAL BIOPSY SINGLE/MULTIPLE 04/29/2016 ESOPHAGOGASTRODUODENOSCOPY TRANSORAL DIAGNOSTIC 01/28/05 EGD ORCHIECTOMY SIMPLE Left 12/2015 PAST SURGICAL HISTORY OF 2007 PVP prostate PAST SURGICAL HISTORY OF 07/03/1997 chest wall tumor- benign PAST SURGICAL HISTORY OF 02/12/01 gall bladder REMOVE TONSILS AND ADENOIDS; AGE 11 OVER ALLERGIES Allergen Reactions Prevacid [Lansopraz* Diarrhea Only the generic form Ceclor [Cefaclor] Itching Contact Metal Agent Rash Nexium [Esomeprazol* Itching Nortriptyline unknown Penicillins Itching Uroxatral [Alfuzosi* Intolerance numbness Current Outpatient Medications Medication Sig fluticasone (FLONASE ALLERGY RELIEF) 50 mcg/actuation nasal spray Use 1 [place] in each nostril as needed. polyethylene glycol 3350 17 gram packet Take 17 g by mouth once daily. Dissolve dose in 4 - 8 ounces of liquid and take as directed. Magnesium Oxide 250 mg magnesium tab Take 500 mg by mouth once daily. albuterol sulfate 90 mcg/actuation breath activated powder inhaler Inhale 2 Puffs as instructed as needed. docusate sodium (COLACE) 100 mg capsule Take 100 mg by mouth as needed. budesonide-formoterol (SYMBICORT) 160-4.5 mcg/actuation inhaler Inhale 2 Puffs as instructed two times a day. tamsulosin (FLOMAX) 0.4 mg Take 0.4 mg by mouth daily at bedtime. calcium-vitamin D3-vitamin K (CITRACAL-D3 SOFT CHEW) 500 mg-1,000 unit-40 mcg chew Take 2 tablets by mouth once daily. Lactobacillus acidophilus 10 billion cell cap Take 1 capsule by mouth once daily. pantoprazole DR (PROTONIX) 40 mg tablet Take 40 mg by mouth once daily. buPROPion XL (WELLBUTRIN XL) 150 mg 24 hr tablet Take 150 mg by mouth once daily. levothyroxine (SYNTHROID) 88 mcg tablet Take 88 mcg by mouth daily before breakfast. finasteride 5 mg tablet Take 1 tablet by mouth once daily. paroxetine (PAXIL) 20 mg ORAL tablet Take 1 tablet by mouth once daily. (Patient taking differently: Take 40 mg by mouth once daily.) METAMUCIL 100 % ORAL POWDER Take by mouth as needed. MULTIVITAMIN TAB Take 1 tablet by mouth once daily. No current facility-administered medications for this visit. Social History Tobacco Use Smoking status: Never Smokeless tobacco: Never Vaping Use Vaping Use: Never used Substance Use Topics Alcohol use: No Drug use: No Family History Problem Relation Age of Onset Hypertension Mother Heart Mother not CAD, details unknown Diabetes Father age 57 Heart Father pacemaker, CAD other (other) Sister anemia Heart Sister Arthritis Sister Colon Cancer Other none Prostate Cancer Other none Complete review of systems otherwise negative except as noted above. PHYSICAL EXAM: Vitals: Blood pressure 108/62, pulse 84, temperature 36.7 C (98.1 F), temperature source Temporal, weight 77.1 kg (170 lb), SpO2 98%. Mild sallow-appearing and in no acute distress. EYES: Sclerae are anicteric bilaterally. DERM: Mildly erythematous rash of the forearms with a few flesh-colored papular lesions. Other areas of mildly raised erythematous blanching lesions volar surfaces of the forearms. Similar rash medial left ankle. LABS: Latest Ref [facility] 05/12/2023 WBC 3.70 - 11.00 k/uL 5.43 RBC 4.20 - 6.00 m/uL 3.29 (L) Hemoglobin 13.0 - 17.0 g/dL 10.5 (L) Hematocrit 39.0 - 51.0 % 30.7 (L) MCV 80.0 - 100.0 fL 93.3 MCH 26.0 - 34.0 pg 31.9 MCHC 30.5 - 36.0 g/dL 34.2 RDW-CV 11.5 - 15.0 % 13.2 Platelet Count 150 - 400 k/uL 147 (L) MPV 9.0 - 12.7 fL 8.2 (L) NRBC /100 WBC 0.9 Absolute nRBC <0.01 k/uL 0.05 (H) Neut% % 85.3 Abs Neut (ANC) 1.45 - 7.50 k/uL 4.63 Lymph% % 13.0 Abs Lymph 1.00 - 4.00 k/uL 0.71 (L) [place]% % 1.7 Abs [place] <0.87 k/uL 0.09 Eosin% % 0.0 Abs Eosin <0.46 k/uL 0.00 Baso% % 0.0 Abs Baso <0.11 k/uL 0.00 Platelet Estimate Decreased Red Cell Morph Reviewed: see results of individual morphologies Polychromasia Slight Ovalocytes Few DTYPE Manual ASSESSMENT/PLAN: (D46.9) MDS (myelodysplastic syndrome) (HCC) (primary encounter diagnosis) (D64.9) Anemia, unspecified type (D69.6) Thrombocytopenia (HCC) Assessment: -I reviewed the results of the bone marrow biopsy in detail with the patient and his . -Findings consistent with MDS with low blasts (MDS-LB). -IPSS-R 2 (Normal cytogenetics and blasts >2-<5%); Low risk. -H/O AVMs and previous TANNER. -I discussed the natural history, treated course, and prognosis of low risk MDS with the patient and . -Anemia is not symptomatic at this time. -Thrombocytopenia is mild. Currently not on antiplatelet agents or anticoagulation. -Discussed plan continue to monitor and institute BETY therapy if hemoglobin declines and remains consistently under 10 g/dL. -Also discussed more definitive therapy including possible azacitidine should he develop neutropenia, significant thrombocytopenia or other indication for such therapy. -Discussed that there may be need for transfusional support. Plan: -Check inflammatory markers, cryoglobulins as well as MMA today. -OV with CBC/possible transfusion in about a month. Portions of this documentation were copied and pasted from previous office visit notes in order to provide a cohesive continuity of the history. The note has been reviewed and edited and updated as necessary. I spent a total of 45 minutes on the date of the service which included preparing to see the patient, [id number] patient care, completing clinical documentation, obtaining and/or reviewing separately obtained history, performing a medically appropriate examination, counseling and educating the pat ient/family/caregiver, ordering medications, tests, or procedures, communicating with other HCPs (not separately reported), and communicating results to the patient/family/caregiver. Acosta Cruz DO documented in this encounterOhiohealth [facility]03-18-2024 History of Past illness Narrative* Problem Noted Date Diagnosed Date Resolved Date Platelet disorder 05/12/2023 06/06/2023 Cough 05/19/2007 08/19/2008 Obesity, unspecified 04/29/2005 006 Bladder neck obstruction 03/11/2005 Esophagitis, unspecified 12/2006 Acute gastritis without mention of hemorrhage 08/04/2006 documented as of this encounter (statuses as of 06/06/2023) [facility] Nurse Note* Parul Jordan LPN - 05/12/2023 12:53 PM EDT Pt discharged to home with after BMBX with dry sterile dressing in place. No drainage noted. Post-procedure care reviewed with patient. Pt to call with any complaints of redness, swelling, increased or unresolved pain, bleeding, chills, bruising, and/or fever. Pt verbalized understanding. Shakira LOPEZ documented in this encounterOhiohealth [facility] [facility] Procedure note* Chioma Arredondo APRN.CNP - 05/12/2023 12:48 PM EDTAssociated Order(s): BONE MARROW BIOPSY Post-Procedure Diagnose(s): Thrombocytopenia (HCC); Anemia, unspecified type BEDSIDE PROCEDURE NOTE BONE MARROW BIOPSY Performed by: Chioma Arredondo APRN.MORIAH Authorized by: Chioma Arredondo APRN.CNP Where was Patient When this Procedure was Performed [facility] Informed Consent Consent Obtained: Written [place] Protocol A moment to CARE was completed. SIGN IN Personnel directly involved with the procedure wore the appropriate PPE. Special Equipment: Yes Patient/Surrogate Stated/Verified: Patient name, Date of , Relevant allergies and Intended procedure TIME OUT Intended patient and procedure match the source document(s). Consent documented and matches the intended procedure. Relevant labs, photos, and/or imaging studies have been reviewed. Correct side/site marked and visible. Medications required for procedure verified. No fire risk assessment and interventions applicable. No implant(s) inserted. Pre-procedure Details: The area was prepped with povidone Iodine (Betadine) and allowed to dry. A sterile partial body drape was applied following the usual aseptic technique. Medications: Local Anesthesia (see MAR): Lidocaine 1% Anxiolysis (see MAR): Lorazapem Procedure Details: Patient Position: Left lateral decubitus Aspiration Laterality: Unilateral Aspiration Site: Right posterior superior iliac crest Biopsy Laterality: Unilateral Biopsy Site: Right posterior sperior iliac crest . Pretty in my Pocket (PRIMP) biopsy system was used. Using aseptic technique, bone marrow aspiration was performed. A touch prep was taken. Core biopsy was obtained 1.2 cm. The core biopsy was confirmed. Pressure dressing applied to Bone Marrow site(s). Hemostasis maintained. Assisting Clinician(s): Parul Jordan LPN and Diya Simmons RN Post-procedure Details: Patient tolerated the procedure well with no immediate complications Immediate Complications: N/A Estimated Blood Loss: scant Specimens Sent: bone marrow analysis, bone marrow chromosome analysis, DNA extraction and flow cytometry Teaching Complete: Bone Marrow Biopsy Post-procedure teaching complete Post-procedure care was reviewed and explained. Patient instructed to communicate complaints of redness, swelling, increased or unresolved pain, bleeding chills, bruising, and/or fever. Patient verbalized understanding. SIGN OUT All instruments, equipment, possible retained foreign bodies accounted for. SIGNATURE: Chioma Arredondo APRN.CNP PATIENT NAME: Chance Munoz DATE: May 12, 2023 TIME: 12:48 PM documented in this encounterOhio[facility] Miscellaneous Notes* Telephone Encounter - Mary Ann Vasquez - 05/07/2023 3:12 PM EDT Patient scheduled as directed. Mary Ann iNcole * Telephone Encounter - Belkys Barrios LPN - 05/07/2023 1:54 PM EDT PSS- please schedule patient for a BMBX 05/12/2023 @ 1:00. Patient is aware to arrive at 12:30 for a CBC prior to his BMBX. Please schedule a lab appointment as well. Dr. Cruz- please sign CBC order. Belkys Barrios LPN documented in this encounterOhiohealth [facility]03-01-2024 History of Present illness Narrative* Tanna Shen - 04/25/2023 11:08 AM EST Hematology Consult Note Chance Munoz 1945 Encounter date: 04/28/2023 Cancer Staging No matching staging information was found for the patient. HPI: Chance Munoz is a 77 year old gentleman with PMHx of T2DM, CAD, asthma, hypothyroidism, thyroid nodule, BPH, DDD, testicular mass s/p orchiectomy 2016 benign, GERD, colon polyps, pancytopeniapresents today for second opinion of iron deficiency anemia [facility] Has received IV iron in the past, unable to tolerate PO iron supplements due to GI upset. Last received injectfer x2 at [facility], 03/2023. No hx of blood transfusion. He states "I've been anemic since I got out of the service in ." Follows with Dr. Jane LAMBERT. Has had complete GI workup. Past 3 years - two EGDs, colonoscopies, occult stool, without bleeding. Denies N/V/C/D. No hematochezia, hematuria. Denies current FOWLER., dizziness. Recent syncopal episode in February - was told that it was dehydration notes 4 episodes in thepast. Denies known cardiac issues. SOB is stable. No CP, cough. 3 x 16 oz glasses water a day, appetite "over exceeding itself" No dietary restrictions, does pretty well with trying to keep well rounded diet. No PICA, ice cravings. Denies unintentional weight loss. Denies fevers. Feels chills in the evenings for last several years. No recent illnesses or infections. No lumps or bumps. Notes diffuse pruritic rash "all over" about the last 3-4 weeks. Mostly extremities, was told he was allergic to mold but allergy test negative. Started back on allergy med last night. Tries not to take too frequently due to prostate issues. Rash showed up Nov just after receiving RSV vaccine. Serum sickness rxn, joint swelling. Bilateral lower extremity neuropathy improved with IV iron - gettingworse now. Possible mold exposure recently basement flooded, had a box that he missed in clean up [place], pesticide exposure. [place] used to spray (now banned) Used respirator at the time. 2017 retired from [employer], 30+ years, possible chemical exposures. [place] for 300+ days -, possible agent orange exposure. He states was used where he was stationed 3 months prior to his arrival. No known family hx of cancer. Sister with syncopal episodes, mother guillain- barre patient here met breast ca. PAST MEDICAL HISTORY Diagnosis Date Acute gastritis without mention of hemorrhage Anemia Bladder neck obstruction 03/11/2005 Bronchiectasis (HCC) Depression Diverticulosis of colon (without mention of hemorrhage) Elevated bilirubin Esophagitis, unspecified GERD (gastroesophageal reflux disease) hiatal hernia Hypothyroid IBS (irritable bowel syndrome) Impaired fasting glucose Myalgia and myositis, unspecified Pancytopenia (HCC) Premature ventricular contractions Right upper lobe pulmonary infiltrate PAST SURGICAL HISTORY Procedure Laterality Date COLONOSCOPY FLX DX W/COLLJ SPEC WHEN PFRMD 01/28/05 Colonoscopy COLSC FLX W/RMVL OF TUMOR POLYP LESION SNARE TQ 04/29/2016 EGD TRANSORAL BIOPSY SINGLE/MULTIPLE 04/29/2016 ESOPHAGOGASTRODUODENOSCOPY TRANSORAL DIAGNOSTIC 01/28/05 EGD ORCHIECTOMY SIMPLE Left 12/2015 PAST SURGICAL HISTORY OF 2007 PVP prostate PAST SURGICAL HISTORY OF 07/03/1997 chest wall tumor- benign PAST SURGICAL HISTORY OF 02/12/01 gall bladder REMOVE TONSILS AND ADENOIDS; AGE 12 OVER Current Outpatient Medications Medication Sig Dispense Refill fluticasone (FLONASE ALLERGY RELIEF) 50 mcg/actuation nasal spray Use 1 [place] in each nostril as needed. polyethylene glycol 3350 17 gram packet Take 17 g by mouth once daily. Dissolve dose in 4 - 8 ounces of liquid and take as directed. Magnesium Oxide 250 mg magnesium tab Take 500 mg by mouth once daily. albuterol sulfate 90 mcg/actuation breath activated powder inhaler Inhale 2 Puffs as instructed as needed. docusate sodium (COLACE) 100 mg capsule Take 100 mg by mouth as needed. budesonide-formoterol (SYMBICORT) 160-4.5 mcg/actuation inhaler Inhale 2 Puffs as instructed two times a day. tamsulosin (FLOMAX) 0.4 mg Take 0.4 mg by mouth daily at bedtime. calcium-vitamin D3-vitamin K (CITRACAL-D3 SOFT CHEW) 500 mg-1,000 unit-40 mcg chew Take 2 tablets by mouth once daily. Lactobacillus acidophilus 10 billion cell cap Take 1 capsule by mouth once daily. pantoprazole DR (PROTONIX) 40 mg tablet Take 40 mg by mouth once daily. buPROPion XL (WELLBUTRIN XL) 150 mg 24 hr tablet Take 150 mg by mouth once daily. levothyroxine (SYNTHROID) 88 mcg tablet Take 88 mcg by mouth daily before breakfast. finasteride 5 mg tablet Take 1 tablet by mouth once daily. 30 tablet 11 paroxetine (PAXIL) 20 mg ORAL tablet Take 1 tablet by mouth once daily. (Patient taking differently: Take 40 mg by mouth once daily.) 30 tablet 11 METAMUCIL 100 % ORAL POWDER Take by mouth as needed. 0 MULTIVITAMIN TAB Take 1 tablet by mouth once daily. 0 No current facility-administered medications for this visit. ALLERGIES Allergen Reactions Prevacid [Lansopraz* Diarrhea Only the generic form Ceclor [Cefaclor] Itching Contact Metal Agent Rash Nexium [Esomeprazol* Itching Nortriptyline unknown Penicillins Itching Uroxatral [Alfuzosi* Intolerance numbness FAMILY HISTORY Problem Relation Age of Onset Hypertension Mother Heart Mother not CAD, details unknown Diabetes Father age 57 Heart Father pacemaker, CAD other (other) Sister anemia Heart Sister Arthritis Sister Colon Cancer Other none Prostate Cancer Other none Social History Tobacco Use Smoking status: Never Smokeless tobacco: Never Vaping Use Vaping Use: Never used Substance Use Topics Alcohol use: No Drug use: No Review of Systems: Negative except as noted in HPI reviewed 04/28/2023 Physical Exam: BP 96/61 Pulse 85 Temp 98.1 Ht 5' 8.898" (1.75m) Wt 174 lb 8 oz (79.2kg) SpO2 96% BMI 25.85 kg/(m^2). ECOG PS: 0 Pain Intensity: 0/10 General: Age-appropriate well developed. Appears well. HEENT: Normocephalic, no sclera icterus, external ears normal, oral cavity clear. Neck: Supple, no thyroid nodules, no JVD. Chest: Clear bilaterally, no wheezes, not labored. Heart: Normal S1 and S2, no abnormal sounds Abdomen: Soft, nontender, nondistended, bowel sounds present, no organomegaly or mass, no rigidity. Extremities: No cyanosis, clubbing, gross deformities, or palpable cords. Neurological: Cranial nerves II through XII are intact bilaterally, strength normal in the upper and lower extremities, no focal deficits. Skin: Warm and dry with no ulcerations.Diffuse pruritic rash to upper and lower extremities, flat, irregular, patchy Nodes: No palpable adenopathy in the cervical, supraclavicular, infraclavicular, or axillary regions. Hematologic: no bruising or petechiae. Psychiatric: Alert and oriented x3. Emotional well-being assessment was performed. Pt denies depression, distress, and or problems with coping or adjustment. Lab Results Component Value Date WBC 4.14 04/25/2023 HB 10.7 (L) 04/25/2023 MCV 94.1 04/25/2023 PLT 136 (L) 04/25/2023 Lab Results Component Value Date NA 132 (L) 04/25/2023 K 4.1 04/25/2023 CO2 28 04/25/2023 BUN 16 04/25/2023 CREAT 0.64 (L) 04/25/2023 TBILI 0.6 04/25/2023 TPROT 6.0 (L) 04/25/2023 TPROT 5.8 (L) 04/25/2023 ALB 3.9 04/25/2023 ALKPHOS 114 (H) 04/25/2023 ALT 9 (L) 04/25/2023 AST 12 (L) 04/25/2023 Assessment and Plan: Mr. Munoz is a pleasant 77 year old gentlemen presenting for a second opinionon iron deficiency Abnormal CBC, Anemia - history of anemia dating back to at least 2002, treated for TANNER s/p iv iron 03/2023 - managed at [facility] (would like to follow at [facility] as spouse is treated here) - reviewed recent OSH labs, and records - reviewed potential causes of anemia with patient in detail today, including but not limited to kidney/liver dysfunction, malabsorption/nutritional deficiencies, chronic blood loss, bone marrow disorders. Pt acknowledged. - has had appropriate GI workup, follows with Dr. Lara - discussed will redraw CBC diff, iron studies today - concern for pancytopenia based off of prior labs - check: CMP, B12, copper, zinc, folate, hapto, LDH, retic, SPEP RTC in 2 weeks to review labs Advised patient to call with any questions in the meantime. Tanna Shen APRN.MOTOR EXPERT I spent >60 minutes in the visit, with more than 50% of the total [id number] time of the visitin counseling / coordination of care. Portions of this note including HPI, ROS, impression/plan may have been copied forward as to provide important historical information essential in contributing to medical decision making. Documentation has been reviewed and edited as necessary to support clinical decision making for today's visit and to reflect my own independent evaluation of this patient. documented in this encounterOhiohealth [facility]01-16-2024 Discharge summary Author John Brownlee [facility] March 11, 2023 2:10pm Note Date/Time March 11, 2023 1 2:52pm [facility] Medical Records Department [address] [place] [address] Emergency Department Summary 03/11/23 MR#: [id number] Acct: [id number] Name: CHANCE MUNOZ Rep #:[id number] : 1945 77 From: John Brownlee DO PCP: Dr. Shreyas Amezquita, DO Status:REG ER Location: ED HPI History of Present Illness Chief Complaint: Weakness Narrative Narrative: 77-year-old male presenting with generalized weakness. 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 He states he was outside for 20 minutes and less than 10 ?F weather. He states he was able to finish the job and became short of breath. Patient states it took about 20 to 30 minutes to catch his breath again. He states he was sweating pretty profusely. Denies any chest pain. Patient states that last week he had symptoms of a cough/cold. He was seen at the urgent care and they did not test him for anything but did put him on a prednisone taper. Patient states that he has allergy induced asthma but is usually having issues with this. He also has a chronic anemia which she sees hematology for. No black or bloody stools. Patient states he feels like he is back to his baseline. It was reported that the patient had one low blood pressure prior to arrival. [facility] Medical History Abdominal pain Acute bronchitis, unspecified Acute pharyngitis, unspecified Acute sinusitis, unspecified Anxiety Arthritis Bradycardia Cardiology follow-up encounter Chronic anemia Concussion Contact with and (suspected) exposure to other viral communicable diseases Esophagitis Fibromyalgia GERD (gastroesophageal reflux disease) History of diverticulitis History of edema History of hiatal hernia History of IBS Hypothyroidism Impacted cerumen of both ears Injury of back Leg cramps Lipoma Loss of consciousness Non-smoker Personal history of colonic polyps Premature ventricular contractions Right upper lobe pulmonary infiltrate Seasonal allergies Skin lesion Thyroid disease URI (upper respiratory infection) Vertigo Wears dentures Home Medications levothyroxine 88 mcg tablet 88 mcg PO DAILY 11/23/15 [History Last Taken 05/07/21 0830] saw palmetto-pumpkin seed oil 160 mg capsule 160 mg PO DAILY bph 04/25/16 [History Last Taken Unknown] magnesium 250 mg tablet 500 mg PO QDAY 12/11/20 [History Last Taken Unknown] calcium-vitamin D3-vitamin K 500 mg-1,000 unit-40 mcg chewable tablet (Citracal- D3 Soft Chew) 2 tab PO DAILY supplement 12/25/20 [History Last Taken Unknown] docusate sodium 50 mg capsule 100 mg PO QHS PRN Constipation 12/25/20 [History Last Taken Unknown] albuterol sulfate 90 mcg/actuation aerosol inhaler 2 inh inhalation Q6H PRN SOB 01/09/21 [History Last Taken Unknown] finasteride 5 mg tablet 5 mg PO DAILY 01/09/21 [History Last Taken Unknown] paroxetine HCl 40 mg tablet 40 mg PO DAILY 01/09/21 [History Last Taken Unknown] Lactobacillus acidophilus 10 billion cell capsule (Probiotic) 10,000 mmu cells PO DAILY 05/03/21 [History Last Taken Unknown] ketorolac 0.5 % eye drops 1 drp ophthalmic (eye) DAILY 01/09/22 [History Last Taken Unknown] Acapella #1 ea 02/21/22 [Rx Last Taken Unknown] pantoprazole 40 mg tablet,delayed release 40 mg PO DAILY #30 tabs 06/13/22 [Rx Last Taken Unknown] budesonide-formoterol HFA 160 mcg-4.5 mcg/actuation aerosol inhaler (Symbicort) 2 puff inhalation BID #1 ea 08/29/22 [Rx Last Taken Unknown] spacer #1 ea 08/29/22 [Rx Last Taken Unknown] bupropion HCl 150 mg 24 hr tablet, extended release 150 mg PO DAILY 01/23/23 [History Last Taken Unknown] benzonatate 200 mg capsule 200 mg PO TID PRN cough #20 caps 03/03/23 [Rx Last Taken Unknown] Allergy/AdvReac Type Severity Reaction Status Date / Time cefaclor [From Ceclor] Allergy Unknown Verified 03/11/23 12:12 contact metal agent Allergy Rash Verified 03/11/23 12:12 nortriptyline Allergy Unknown Verified 03/11/23 12:12 Penicillins Allergy blisters Verified 03/11/23 12:12 on feet alfuzosin [From Uroxatral] AdvReac Unknown Verified 03/11/23 12:12 esomeprazole [From Nexium] AdvReac Itching Verified 03/11/23 12:12 lansoprazole [From Prevacid] AdvReac Upset Verified 03/11/23 12:12 Stomach Family History Father Diabetes Afib pacemaker Mother Heart disease Hx CHF Hypertension Surgical History History of cholecystectomy History of esophagogastroduodenoscopy (EGD) History of prostate surgery History of testicular mass excision History of tonsillectomy and adenoidectomy Hx of colonoscopy Hx of colonoscopy Social History household members: spouse housing: house Smoking Status: Never smoker alcohol intake: never substance use type: does not use caffeine: Yes Type: carbonated beverages what type of physical activity do you participate in: none seatbelt use: always do you feel safe at home: Yes ROS ROS ED Constitutional Constitutional ED: Reports sweats; Denies chills or fever(s) Eyes Eyes: Denies blurry vision or change in vision ENT ENT ED: Denies ear pain or sore throat Cardiovascular Cardiovascular: Denies chest pain, palpitations or racing heartbeat Respiratory/Chest Respiratory/Chest: Reports dyspnea; Denies cough or sputum Gastrointestinal Gastrointestinal: Denies abdominal pain, constipation, diarrhea, nausea or vomiting Genitourinary Genitourinary ED: Denies dysuria, hematuria or urinary frequency Musculoskeletal Musculoskeletal: Denies arthralgias, myalgias or neck pain Integumentary Denies abscess, Abrasions or rash Neurologic Neurologic: Denies headache(s), paresthesias or weakness Psychiatric Psychiatric: Denies anxiety, depression, suicidal ideation or suicidal thoughts Endocrine Endocrinology: Denies polydipsia or polyuria EXAM Physical Exam Const Vital Signs: 03/11/23 12:08 03/11/23 12:14 03/11/23 12:19 Temperature 96.2 F L Temperature Source Temporal Pulse Rate 73 Respiratory Rate 17 Respiratory Effort Normal Respiratory Pattern Normal Blood Pressure 133/64 H Blood Pressure Mean 87 Pulse Ox 100 100 Oxygen Delivery Method Room Air Room Air Positive well nourished General Appearance ED: NAD; Negative for pallor HEENT Reports moist mucous membranes Eyes PERRL and EOMs intact bilaterally Neck no lymphadenopathy Chest Wall inspection of chest normal Resp normal respiratory effort and clear to auscultation bilaterally Auscultation: Negative for rales, rhonchi or wheezes Cardio regular rate and regular rhythm Neuro oriented x3 Sensorium / Orientation: alert Motor Exam: strength 5/5 throughout Psych mental status grossly normal Skin no rashes or lesions noted General Skin Exam: Negative for jaundice or pallor MDM MDM MDM Narrative Medical decision making narrative: 77-year-old male presenting with shortness of breath and weakness. 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 He denies any chest pain. States about 30 minutes later he started to feel like his symptoms were improved. EMS was called due to his dyspnea and there was reported 1 low blood pressure prior to arrival. Differential includes ACS, pneumonia, dehydration, anemia, electrolyte normalities, hyperglycemia, COVID, influenza, RSV. CBC will be obtained to assess white blood cell count, hemoglobin, platelets. BMP to assess renal function, electrolytes, glucose, anion gap. High-sensitivity troponin EKG to assess for ischemia/dysrhythmia. Chest x-ray to rule out pneumonia. Urinalysisto assess for UTI. Currently patient well-appearing. Vital signs are stable heis afebrile. Oxygen 100% on room air. Lungs clear to auscultation bilaterally heart regular rate and rhythm. EKG on my interpretation shows a normal sinus rhythm with a ventricular rate of 76 bpm with first-degree AV block. CBC shows white blood cell count of 5.8. Hemoglobin 11.5. Platelets are normal 176. Renal function electrolytes within normal limits. Urinalysis negative for infection. High-sensitivity troponin and BNP are both normal. Chest x-ray my interpretation shows no acute process. Radiologist interprets this and agrees. COVID, influenza, RSV are all negative. Patient able to ambulate in the [place] with steady gait. At this point I feel patient stable for discharge. Impression: 1. Dyspnea 2. Weakness Lab Data Attestation: I reviewed the patient's lab results. Labs: Laboratory Results - last 24 hr 03/11/23 03/11/23 12:25 13:20 WBC 5.8 RBC 3.78 L Hgb 11.5 L Hct 35.6 L MCV 94.2 H MCH 30.4 MCHC 32.3 RDW Std Deviation 59.9 H RDW Coeff of Jayesh 17.4 H Plt Count 176 MPV 9.0 Neut % (Auto) Not Reportable Absolute Neuts (auto) 5.2 Absolute Lymphs (auto) 0.35 L Total Counted 100 Neutrophils % (Manual) 90 H Lymphocytes % (Manual) 6 L Monocytes % (Manual) 2 Myelocytes % 2 H Diff Path Review May foll Platelet Estimate ADEQUATE RBC Morphology NORM C+C Sodium 135 L Potassium 3.5 Chloride 100 Carbon Dioxide 25.0 Anion Gap 10 BUN 25 H Creatinine 1.13 Estim Creat Clear Calc 55.63 Est GFR (MDRD) Af Amer 81 Est GFR (MDRD) Non-Af 67 BUN/Creatinine Ratio 22.1 H Glucose 300 H Calcium 9.5 Troponin I High Sens 9 B-Natriuretic Peptide 20.1 Urine Color Yellow Urine Clarity Sl. Cloudy Urine pH 7.0 Ur Specific [place] 1.015 Urine Protein 30 H Urine Glucose (UA) 1000 H Urine Ketones 5 H Urine Occult Blood Negative Urine Nitrite Negative Urine Bilirubin 1 H Urine Urobilinogen 4 H Ur Leukocyte Esterase 25 H Urine RBC 0 SEEN Urine WBC 0-5 SEEN Ur Squamous Epith Cells 0-5 SEEN Urine Bacteria 0 SEEN Hyaline Casts 0-5 SEEN Urine Mucus 0 SEEN Radiography Diagnostic Testing: Clinical Impression(s) from Imaging Studies Chest X-Ray 03/11/23 12:32 IMPRESSION: Mild increased markings in the right upper lobe abutting the right minor fissure suggestive of atelectasis and/or scarring. This has improved as compared to prior CT scan of thorax dated February 20, 2022. Electronically Signed: Vito Duron MD at 12:46 EST , Discharge Plan Triage Chief Complaint: Weakness ED Provider: John Brownlee Dx/Rx/DC Orders Instructions: ED Weakness (Uncertain Cause) Prescriptions: No Action magnesium 250 mg tablet 500 mg PO QDAY paroxetine HCl 40 mg tablet 40 mg PO DAILY finasteride 5 mg tablet 5 mg PO DAILY albuterol sulfate 90 mcg/actuation HFA aerosol inhaler 2 inh inhalation Q6H PRN (Reason: SOB) (DME) Acapella See Rx Instructions .ROUTE .MEDSUPPLY Qty: 1 0RF Rx Instructions: As directed budesonide-formoterol [Symbicort] 160-4.5 mcg/actuation HFA aerosol inhaler 2 puff inhalation BID Qty: 1 3RF Rx Instructions: administer with spacer, rinse mouth after each use (DME) spacer See Rx Instructions .ROUTE .MEDSUPPLY Qty: 1 0RF Rx Instructions: As directed benzonatate 200 mg capsule 200 mg PO TID PRN (Reason: cough) Qty: 20 0RF levothyroxine 88 MCG tablet 88 mcg PO DAILY saw palmetto-pumpkin seed oil 160 MG capsule 160 mg PO DAILY docusate sodium 50 mg Capsule 100 mg PO QHS PRN (Reason: Constipation) calcium-vitamin D3-vitamin K [Citracal-D3 Soft Chew] 500 mg-1,000 unit-40 mcg Tablet,Chewable 2 tab PO DAILY Probiotic 10 billion cell Capsule 10,000 mmu cells PO DAILY bupropion HCl 150 mg tablet extended release 24 hr 150 mg PO DAILY Patient Comments: TAKE 1 TABLET BY MOUTH EVERY DAY ketorolac 0.5 % drops 1 drp ophthalmic (eye) DAILY pantoprazole 40 mg tablet,delayed release (DR/EC) 40 mg PO DAILY Qty: 30 6RF Primary Care Provider: Shreyas Amezquita Referrals: Shreyas Amezquita DO [Primary Care Provider] - Disposition Disposition: Home, Self Care Capacity Legal Head Buyer Tobacco Reflex Medical hold order details:: IF a medical hold is selected below, a suggested order for a MEDICAL HOLD will reflex upon signing the document. Next of kin: [place] law dictates a PRIORITY LIST for identifying legal decision-maker/legal next of kin in the following order (LNOK): 1st: The patient?s legal guardian, if any 2nd: The patient's spouse (if status is questionable, consult Risk Management) 3rd: The patient?s adult child(merry) (majority, if multiple children) 4th: The patient?s parents 5th: The patient?s adult siblings (majority, if multiple children siblings) What to do if you have Problems For any increased pain, shortness of breath, bleeding, nausea or vomiting, chestpain, or any unexpected problems, contact your Primary Care Provider. Call [facility] ([phone]) or report to the closest Emergency Room. Call 911 if necessary. 03/11/23 1410 <Electronically signed by John Brownlee DO> Cosigner Signature (if applicable): CC: Dr. Shreyas Amezquita DO ~ Signed [facility] Work Phone: [phone] 532-540411-07-2023 Telephone encounter Note* Telephone Encounter - Nat Hodge RN - 12/31/2022 5:24 PM EST Error. [id number] Miscellaneous Notes* Telephone Encounter - Nat Hodge RN - 12/31/2022 5:24 PM EST Error. documented in this encounterSAshtabula [facility] [id number] Procedure [facility]03-25-2008 History of Past illness Narrative* Problem Noted Date Diagnosed Date Resolved Date Cough 05/19/2007 08/19/2008 Obesity, unspecified 04/29/2005 006 Bladder neck obstruction 03/11/2005 Esophagitis, unspecified 12/2006 Acute gastritis without mention of hemorrhage 08/04/2006 documented as of this encounter (statuses as of 04/28/2023) [facility]03-[facility] History of Past illness Narrative* Problem Noted Date Diagnosed Date Resolved Date Cough 05/19/2007 08/19/2008 Obesity, unspecified 04/29/2005 006 Bladder neck obstruction 03/11/2005 Esophagitis, unspecified 12/2006 Acute gastritis without mention of hemorrhage 08/04/2006 documented as of this encounter (statuses as of 05/08/2023) [facility]03-25-2008 History of Past illness Narrative* Problem Noted Date Diagnosed Date Resolved Date Cough 05/19/2007 08/19/2008 Obesity, unspecified 04/29/2005 006 Bladder neck obstruction 03/11/2005 Esophagitis, unspecified 12/2006 Acute gastritis without mention of hemorrhage 08/04/2006 documented as of this encounter (statuses as of 05/12/2023) [facility]* Diagnosis Onset Date Resolution Status Esophagitis acute Chronic anemia chronic Chronic anemia chronic GERD (gastroesophageal reflux disease) chronic [facility] Work Phone: Evaluation note* Diagnosis Onset Date Resolution Status Chronic anemia chronic GERD (gastroesophageal reflux disease) chronic Acute frontal sinusitis acut e Allergic rhinitis acute Encounter for screening for COVID-19 acute [facility] Work Phone: Evaluation note* Diagnosis Onset Date Resolution Status Acute frontal sinusitis acut e Allergic rhinitis acute Encounter for screening for COVID-19 acute Pancytopenia chronic COVID-19 acute Iron deficiency acute Pancytopenia chronic Right upper lobe pulmonary infiltrate acute [facility] Work Phone: Evaluation note* Diagnosis Onset Date Resolution Status Pancytopenia chronic COVID-19 acute Iron deficiency chronic Pancytopenia chronic Right upper lobe pulmonary infiltrate acute COVID-19 acute Right upper lobe pulmonary infiltrate acute Premature ventricular contractions chronic Iron deficiency chronic Pancytopenia chronic [facility] Work Phone: Evaluation note* Diagnosis Onset Date Resolution Status Iron deficiency chronic Pancytopenia chronic Right upper lobe pulmonary infiltrate acute COVID-19 acute Right upper lobe pulmonary infiltrate acute Premature ventricular contractions chronic Iron deficiency chronic Pancytopenia chronic Bronchiectasis acute COVID-19 acute Right upper lobe pulmonary infiltrate acute [facility] Work Phone: Evaluation note* Diagnosis Onset Date Resolution Status COVID-19 acute Right upper lobe pulmonary infiltrate acute Premature ventricular contractions chronic Iron deficiency chronic Pancytopenia chronic Bronchiectasis acute COVID-19 acute Right upper lobe pulmonary infiltrate acute [facility] Work Phone: Evaluation note* Diagnosis Onset Date Resolution Status Acute bronchitis, unspecified acute Contact with and (suspected) exposure to other viral communicable diseases acute Impacted cerumen of both ears acute URI (upper respiratory infection) acute Acute bronchitis, unspecified acute Bilateral otitis media acute Cough acute Maxillary sinusitis acute Cough acute [facility] Work Phone: Evaluation note* Diagnosis Onset Date Resolution Status Acute bronchitis, unspecified acute Bilateral otitis media acute Cough acute Maxillary sinusitis acute Cough acute [facility] Work Phone: Evaluation note* Diagnosis Onset Date Resolution Status Cough acute Maxillary sinusitis acute Cough acute Bronchiectasis acute Cough acute [facility] Work Phone: Evaluation note* Diagnosis Onset Date Resolution Status Acute pharyngitis, unspecified acute Acute sinusitis, unspecified acute Iron deficiency chronic Pancytopenia chronic Iron deficiency chronic Pancytopenia chronic Acute bronchitis, unspecified acute URI (upper respiratory infection) acute [facility] Work Phone: Evaluation note* Diagnosis Onset Date Resolution Status Iron deficiency chronic Pancytopenia chronic Iron deficiency chronic Pancytopenia chronic Acute bronchitis, unspecified acute URI (upper respiratory infection) acute Iron deficiency chronic Pancytopenia chronic Premature ventricular contractions chronic [facility] Work Phone: Evaluation note* Diagnosis Anemia, unspecified type- Primary [facility]* Diagnosis Anemia, unspecified type- Primary Thrombocytopenia (HCC) Thrombocytopenia, unspecified documented in this encounter [facility] note* Diagnosis Anemia, unspecified type Thrombocytopenia (HCC) Thrombocytopenia, unspecified Pancytopenia (HCC) Other pancytopenia Platelet disorder (HCC) Qualitative platelet defects [facility]* Diagnosis MDS (myelodysplastic syndrome) (HCC)- Primary Myelodysplastic syndrome, unspecified Anemia, unspecified type Thrombocytopenia (HCC) Thrombocytopenia, unspecified Pancytopenia (HCC) Other pancytopenia [facility]* Diagnosis MDS (myelodysplastic syndrome), low grade (HCC)- Primary Low grade myelodysplastic syndrome lesions 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 [facility]* Diagnosis MDS (myelodysplastic syndrome), low grade (HCC)- Primary Low grade myelodysplastic syndrome lesions 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* Diagnosis MDS (myelodysplastic syndrome) (HCC)- Primary Myelodysplastic syndrome, unspecified Thrombocytopenia (HCC) Thrombocytopenia, unspecified documented in this encounter 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 Myelodysplastic disease (HCC) 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) Low grade myelodysplastic syndrome lesions [facility] Diagnosis Parotid mass- Primary Swelling, mass, or lump in head and neck Preoperative clearance- Primary Preoperative examination, unspecified Parotid mass Swelling, mass, or lump in head and neck [facility] Diagnosis Parotid mass- Primary Swelling, mass, or lump in head and neck Parotid mass Swelling, mass, or lump in head and neck Post-op pain Other acute postoperative pain [facility]* Diagnosis 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 Myelodysplastic disease (HCC) 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) Low grade myelodysplastic syndrome lesions [facility]* Diagnosis Parotid mass- Primary Swelling, mass, or lump in head and neck Body mass index (BMI) 21.0-21.9, adult documented in this encounter [facility]* Diagnosis Onset Date Resolution Status Admit Date Nonrheumatic aortic (valve) stenosis chronic November 17, 2024 12:48pm Premature ventricular contractions chronic November 17, 2024 12:48pm [facility] Work Phone: Hospital course Narrative No data available for this section [facility] Reason for referral (narrative)No reason for referral information availableWAshtabula County Medical Center Work Phone: Reason for visit Narrative* Morgan Prior Authorization (Routine) - Authorized Specialty Diagnoses / Procedures Referred By Froilan king Referred To Contact Diagnoses 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 Narr[facility]* Diagnostic X-Ray (Routine) - Closed Specialty Diagnoses / Procedures Referred By Froilan king Referred To Contact Radiology Diagnoses Parotid mass Procedures CT NEURO IMAGE IMPORT(TARI) DOWNLOAD POWERSHARE IMAGES TO Robert Wyman MD [address] [place] [id number] Phone: tel: fax: [facility] DIAGNOSTIC RADIOLOGY [address] [place] [phone] Phone: tel: Referral ID Status Reason Start Date Expiration Date Visits Re quested Visits Authorized [id number] Closed 09/14/2024 09/14/2025 1 1 [facility]* Service Level Authorization (Routine) - Closed Specialty Diagnoses / Procedures Referred By Contac t Referred To Contact Anesthesiology Diagnoses Parotid mass Robert Singh MD [address] [place] [address] Phone: tel: fax: [facility] PRE ADMISSION TESTING [address] [place] [address] Phone: tel: Referral ID Status Reason Start Date Expiration Date Visits Re quested Visits Authorized [id number] Closed 09/21/2024 09/21/2025 1 1 [facility] Narrative* Auth/Cert (Routine) Specialty Diagnoses / Procedures Referred By Froilan king Referred To Contact General Surgery Diagnoses Parotid mass 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] Procedures PAROTIDECTOMY Robert Singh MD [address] [place] [id number] Phone: tel: fax: [facility] [address] [place] [id number] Phone: tel: Referral ID Status Reason Start Date Expiration Date Visits Re quested Visits Authorized [id number] 3 3 [facility] Summary Purpose Family History No Family History Records Found Relationship Condition Age at Onset Recorded Date/T stefani father Diabetes mellitus Unknown Atrial fibrillation Unknown Unknown mother Cardiac disease Unknown Hypertension Unknown Advance Directives No Advanced Directives Records Found Advance Directive Response Recorded Date/ Time Advance Directives Yes May 28 11:19am Living Will Yes May 28, 2021 11:19am Power of Shank Taper Yes May 28 11:19am Name of Medical Power of Shank Taper QI MUNOZ May 03, 2021 1:46pm Advance Directive Response Recorded Date/ Time Advance Directives Yes May 28 11:19am Living Will Yes May 28, 2021 11:19am Power of Shank Taper Yes May 28 11:19am Advance Directive Response Recorded Date/ Time Advance Directives Yes May 28 11:19am Living Will No November 10, 2021 9:31am Power of Shank Taper No October 9:31am Advance Directive Response Recorded Date/ Time Advance Directives Yes May 28 10:19am Living Will No November 10, 2021 8:31am Power of Shank Taper No October 8:31am Advance Directive Response Recorded Date/ Time Name of Medical Power of Shank Taper Qi Munoz - March 11, 2023 12:12pm Advance Directives Yes May 28 10:19am Living Will Yes March 11 12:12pm Power of Shank Taper Yes March 11, 2023 12:12pm Advance Directive Response Recorded Date/ Time Advance Directives Yes May 28 10:19am Advance Directive Response Recorded Date/ Time Living Will Yes March 11 1:12pm Do you have a Healthcare Power of Shank Taper? Yes March 11, 2023 1:12pm Living Will Yes November 24 3:33pm Do you have a Healthcare Power of Shank Taper? Yes November 25, 2023 3:33pm Advance Directives Yes May 28 11:19am Advance Directive Response Recorded Date/ Time Advance Directives Yes May 28 11:19am Hospital Course Note 48 Hour Discharge Summary No te Patient ID: Chance Munoz [id number] y.o. 1945 72 y.o. male status post standing height fall. The incident happened around 1500 on 02/27/17 at a Gas station. When the event happened the patient was in a gas station to get a soda pop as he told the employment office clerk he felt like his sugar was low. Patient fell with a witness LOC of 10 sec. Upon awakening the patient began vomiting. Patient pain level currently is 2/10. Complains of pain to the back of the head Admit date: 02/27/2018 Discharge date and time: 1600 03/01/2018 Admitting Physician: Killian Gandara MD Discharge Physician: Griselda Harris APRN - MOTOR EXPERT Consults: geriatrics Admission Diagnoses: Post concussion syndrome [F07.81] Patient Active Problem List Diagnosis ? Post concussive syndrome ? Concussion wth loss of consciousness of 30 minutes or less There is no height or weight on file to calculate BMI. BMI Classification: Procedure: none Treatment: IV hydration, analgesia: acetaminophen and oxycodone and th (more content not included)... Chief Complaint and Reason for Visit Chief Complaint ABDOMINAL PAIN AND A NEMIA 2 WK F/U POST SCOPE CAP ENDO PSA FU E-ORDER Reason for Visit Esophagitis Chronic anemia Chronic anemia GERD (gastroesophageal reflux disease) Chief Complaint PSA FU E-ORDER CONGESTION S/O LABS e orders Reason for Visit Chronic anemia GERD (gastroesophageal reflux disease) Acute frontal sinusitis Allergic rhinitis Encounter for screening for COVID-19 Chief Complaint CONGESTION S/O LABS e orders NEW PT - PANCYTOPENIA MED ONC COVID 19 1WK LABS PRIOR Chest discomfort/COUGH CHEST XRAY sob Reason for Visit Acute frontal sinusi tis Allergic rhinitis Encounter for screening for COVID-19 Pancytopenia COVID-19 Iron deficiency Pancytopenia Right upper lobe pulmonary infiltrate Chief Complaint NEW PT - PANCYTOPENI A COVID 19 1WK LABS PRIOR Chest discomfort/COUGH CHEST XRAY sob POSS PNEUMONIA X-Rays xray CONGESTION 1 Y FU 3MO LABS MED ONC Reason for Visit Pancytopenia COVID-19 Iron deficiency Pancytopenia Right upper lobe pulmonary infiltrate COVID-19 Right upper lobe pulmonary infiltrate Premature ventricular contractions Iron deficiency Pancytopenia Chief Complaint 1WK LABS PRIOR Chest discomfort/COUGH CHEST XRAY sob POSS PNEUMONIA X-Rays xray CONGESTION 1 Y FU 3MO LABS MED ONC Other nonspecific abnormal finding of lung field lung issues Reason for Visit Iron deficiency Pancytopenia Right upper lobe pulmonary infiltrate COVID-19 Right upper lobe pulmonary infiltrate Premature ventricular contractions Iron deficiency Pancytopenia Bronchiectasis COVID-19 Right upper lobe pulmonary infiltrate Chief Complaint POSS PNEUMONIA X-Rays xray CONGESTION 1 Y FU 3MO LABS MED ONC Other nonspecific abnormal finding of lung field lung issues ABNORMAL FINDING OF LUNG FIELD ABNORMAL FINDING OF LUNG FIELD Reason for Visit COVID-19 Right upper lobe pulmonary infiltrate Premature ventricular contractions Iron deficiency Pancytopenia Bronchiectasis COVID-19 Right upper lobe pulmonary infiltrate Chief Complaint CONCERN FOR PNEUMONI A/COVID XRAY CHEST CONGESTION/2ND VISIT CONGESTION/COUGH/JAW/EAR PAIN XRAY Cough INTERMITTENT JAW AND BACK PAIN INTERMITTENT JAW AND BACK PAIN Reason for Visit Acute bronchitis, un specified Contact with and (suspected) exposure to other viral communicable diseases Impacted cerumen of both ears URI (upper respiratory infection) Acute bronchitis, unspecified Bilateral otitis media Cough Maxillary sinusitis Cough Chief Complaint CHEST CONGESTION/2ND VISIT CONGESTION/COUGH/JAW/EAR PAIN XRAY Cough INTERMITTENT JAW AND BACK PAIN INTERMITTENT JAW AND BACK PAIN E-ORDER Reason for Visit Acute bronchitis, un specified Bilateral otitis media Cough Maxillary sinusitis Cough Chief Complaint CONGESTION/COUGH/JAW /EAR PAIN XRAY Cough INTERMITTENT JAW AND BACK PAIN INTERMITTENT JAW AND BACK PAIN E-ORDER 6 M FU PSA Reason for Visit Cough Maxillary sinusitis Cough Bronchiectasis Cough Chief Complaint SORE THROAT 1YR LABS SORE THROAT/CONGESTION/JAW/EYE PAIN 4WKS LABS CHEST CONGESTION MED ONC Reason for Visit Acute pharyngitis, u nspecified Acute sinusitis, unspecified Iron deficiency Pancytopenia Iron deficiency Pancytopenia Acute bronchitis, unspecified URI (upper respiratory infection) Chief Complaint SORE THROAT 1YR LABS SORE THROAT/CONGESTION/JAW/EYE PAIN 4WKS LABS CHEST CONGESTION MED ONC Weakness Reason for Visit Acute pharyngitis, u nspecified Acute sinusitis, unspecified Iron deficiency Pancytopenia Iron deficiency Pancytopenia Acute bronchitis, unspecified URI (upper respiratory infection) Chief Complaint 1YR LABS SORE THROAT/CONGESTION/JAW/EYE PAIN 4WKS LABS CHEST CONGESTION Weakness 8WKS LABS MED ONC S/P [facility] 03/11/23 WEAKNESS Reason for Visit Iron deficiency Pancytopenia Iron deficiency Pancytopenia Acute bronchitis, unspecified URI (upper respiratory infection) Iron deficiency Pancytopenia Premature ventricular contractions Chief Complaint Admit Date LT PAROTID April 19, 2024 2:09pm Chief Complaint Admit Date LT PAROTID April 19, 2024 2:09pm 1 y fu May 18, 2024 1:5 0pm ARRYHTHMIA-OTHER June 15, 2024 1:1 8pm 6 M FU June 17, 2024 1:3 1pm L CLOGGED EAR July 14, 2024 1:59p m Reason for Visit Admit Date Hypotension May 18, 2024 1:5 0pm Premature ventricular contractions May 18, 2024 1:50pm Bronchiectasis June 17, 2024 1:3 1pm Chief Complaint Admit Date 6 M FU November 17, 2024 12:48pm Reason for Visit Admit Date Nonrheumatic aortic (valve) stenosis Sep tember 2024 12:48pm Premature ventricular contractions [facility] 2024 12:48pm Additional Source Comments (unrecognized sect ion and content) No Status Records FoundNo Status Records FoundNo Status Records FoundNo Status Records FoundNo Status Records FoundNo Status Records FoundNo Status Records Found INFORMATION SOURCE (unrecogn ized section and content) DATE CREATED AUTHOR 09/05/2018 [facility] DATE CREATED AUTHOR AUTHOR'S ORGANIZ ATION 06/15/2023 [facility] DATE CREATED AUTHOR AUTHOR'S ORGANIZ ATION 08/24/2023 [facility] DATE CREATED AUTHOR AUTHOR'S ORGANIZ ATION 07/23/2024 [facility] DATE CREATED AUTHOR AUTHOR'S ORGANIZ ATION 11/09/2024 [facility] DATE CREATED AUTHOR AUTHOR'S ORGANIZ ATION 12/15/2024 [facility] DATE CREATED AUTHOR AUTHOR'S ORGANIZ ATION 12/16/2024 [facility] Goals (unrecognized section and content) Goals may be documented in a n alternate sectionGoals may be documented in an alternate sectionGoals may be documented in an alternate sectionGoals may be documented in an alternate sectionGoals may be documented in an alternate sectionGoals may be documented in an alternate sectionGoals may be documented in an alternate sectionGoals may be documented in an alternate sectionGoals may be documented in an alternate sectionGoals may be documented in an alternate sectionGoals may be documented in an alternate sectionGoals may be documented in an alternate sectionGoals may be documented in an alternate sectionGoals may be documented in an alternate sectionGoals may be documented in an alternate sectionGoals may be documented in an alternate sectionGoals may be documented in an alternate section No data available for this sectionGoals may be documented in an alternate sectionGoals may be documented in an alternate sectionGoals may be documented in an alternate section Care Teams (unrecognized sec tion and content) Team Status: Active Member Role Status Dates Dr. Shekhar Arana MD Family Provider Active Dr. Shreyas Amezquita DO Primary Care Provider Active Team Status: Inactive Member Role Status Dates Dr. German Roca MD Attending Provider Active Dr. Shreyas Amezquita DO Primary Care Provider, Referrin g Provider Active Team Status: Inactive Member Role Status Dates Dr. Shekhar Arana MD Primary Care Provider, Referring Provider Active Reinaldo DORSEY, PA Attending Provider Active Team Status: Inactive Member Role Status Dates Dr. Shekhar Arana MD Primary Care Provider Active Dr. Vishal Monte MD Attending Provider Active Reinaldo Resendiz PA, PA Referring Provider Active Team Status: Inactive Member Role Status Dates Dr. Shekhar Arana MD Primary Care Provider, Referring Provider Active Dayana Spear BURN OUT SCARFING OPERATOR, BURN OUT SCARFING OPERATOR-C Attending Provider Active Team Status: Inactive Member Role Status Dates Dr. Shekhar Arana MD Primary Care Provider, Referring Provider Active Dr. Osvaldo Blair MD Attending Provider Active Team Status: Inactive Member Role Status Dates Dr. Shekhar Arana MD Primary Care Provider Active Dr. Vishal Monte MD Attending Provider Active Team Status: Inactive Member Role Status Dates Dr. Shreyas Amezquita DO Primary Care Provider, Referrin g Provider Active Dr. Osvaldo Blair MD Attending Provider Active Team Status: Active Member Role Status Dates Dr. Osvaldo Blair MD Attending Provider , Referring Provider, Other Provider Active Dr. Shreyas Amezquita DO Primary Care Provider Active Team Status: Active Member Role Status Dates Dr. Shekhar Arana MD Primary Care Provider Active Dr. German Roca MD Attending Provider, Referring Pro vider Active Team Status: Inactive Member Role Status Dates Dr. Osvaldo Blair MD Attending Provider Active Dr. Shreyas Amezquita DO Primary Care Provider Active Team Status: Inactive Member Role Status Dates Dr. Osvaldo Blair MD Attending Provider, Referring Pr ovider Active Dr. Shreyas Amezquita DO Primary Care Provider Active Team Status: Inactive Member Role Status Dates Dr. Shreyas Amezquita DO Primary Care Provider, Attendin g Provider Active Team Status: Inactive Member Role Status Dates Dr. Shreyas Amezquita DO Primary Care Provider Active Dr. Osvaldo Blair MD Attending Provider, Referring Pr ovider Active Team Status: Active Member Role Status Dates Dr. Shreyas Amezquita DO Primary Care Provider, Attendin g Provider Active Team Status: Inactive Member Role Status Dates Dr. Shreyas Amezquita DO Primary Care Provider, Referrin g Provider Active Reinaldo Resendiz PA, PA Attending Provider Active Team Status: Inactive Member Role Status Dates Dr. Shreyas Amezquita DO Primary Care Provider Active Dr. Vishal Monte MD Attending Provider Active Team Status: Inactive Member Role Status Dates Dr. Shreyas Amezquita DO Primary Care Provider, Referrin g Provider Active Yen DORSEY, PA Attending Provider Active Team Status: Inactive Member Role Status Dates Dr. Shreyas Amezquita DO Primary Care Provider, Referrin g Provider Active Gonzalo DORSEY, PA Attending Provider Active Team Status: Inactive Member Role Status Dates Dr. Shreyas Amezquita DO Primary Care Provider, Referrin g Provider Active Dianne Donnelly BURN OUT SCARFING OPERATOR, BURN OUT SCARFING OPERATOR-C Attending Provider Active Team Status: Active Member Role Status Dates Dr. Shreyas Amezquita , DO Primary Care Prov ider, Referring Provider, Other Provider Active Dr. Vishal Monte MD Attending Provider Active Team Status: Inactive Member Role Status Dates Dr. Shreyas Amezquita DO Primary Care Prov ider, Attending Provider, Referring Provider Active Team Status: Inactive Member Role Status Dates Dr. Shreyas Amezquita DO Primary Care Provider Active Dianne Donnelly BURN OUT SCARFING OPERATOR, BURN OUT SCARFING OPERATOR-C Attending Provider, Referrin g Provider Active Team Status: Inactive Member Role Status Dates Dr. Shreyas Amezquita DO Primary Care Provider Active Dr. Kev Diaz MD Attending Provider, Referr ing Provider Active Drafter (Cad) Electrical Relationship Specialty Start Date End Date Shekhar Arana [address] [place] [phone] PCP - General 03/03/18 Team Status: Inactive Member Role Status Dates Dr. Shreyas Amezquita DO Primary Care Provider, Referrin g Provider Active Dr. German Roca MD Attending Provider Active Team Status: Inactive Member Role Status Dates Dr. Shreyas Amezquita DO Primary Care Provider Active Reinaldo Resendiz PA, PA Attending Provider, Referring Pr ovider Active Team Status: Inactive Member Role Status Dates Dr. Shreyas Amezquita DO Primary Care Provider Active Dr. John Brownlee , DO Referring Provider, Emergency Provider Active Team Status: Inactive Member Role Status Dates Dr. Shreyas Amezquita DO Primary Care Provider, Referrin g Provider Active Jeremias Crump BURN OUT SCARFING OPERATOR, BURN OUT SCARFING OPERATOR-C Attending Provider Active Team Status: Active Member Role Status Dates Dr. German Roca MD Attending Provider, Referring Pro vider Active Dr. Shreyas Amezquita DO Primary Care Provider Active Team Status: Inactive Member Role Status Dates Dr. Shreyas Amezquita DO Primary Care Provider Active Dr. John Brownlee DO Attending Provid er, Referring Provider, Emergency Provider Active Team Status: Inactive Member Role Status Dates Dr. Shreyas Amezquita DO Primary Care Provider Active Dr. Ramakrishna Melara MD Attending Provider, Refe rring Provider Active Drafter (Cad) Electrical Relationship Specialty Start Date End Date Shekhar Arana MD PCP - General 07/25/08 Drafter (Cad) Electrical Relationship Specialty Start Date End Date Shekhar Arana MD PCP - General 07/25/08 Drafter (Cad) Electrical Relationship Specialty Start Date End Date Shreyas Amezquita DO [address] [place] [address] PCP - General Family Medicine 05/12/23 Drafter (Cad) Electrical Relationship Specialty Start Date End Date Shreyas Amezquita DO [address] [place] [address] PCP - General Family Medicine 05/12/23 Edie Thompson CNP [address] [place] [address] Family Medicine 06/06/23 Drafter (Cad) Electrical Relationship Specialty Start Date End Date Shreyas Amezquita DO [address] [place] [phone] PCP - General Family Medicine 05/12/23 Edie Thompson CNP [address] [place] [address] Family Medicine 06/06/23 Drafter (Cad) Electrical Relationship Specialty Start Date End Date Shreyas Amezquita DO [address] [place] [phone] PCP - General Family Medicine 05/12/23 Edie Thompson CNP [address] [place] [address] Family Medicine 06/06/23 Drafter (Cad) Electrical Relationship Specialty Start Date End Date Shreyas AmezquitaDO [address] [place] [phone] PCP - General Family Medicine 05/12/23 Edie Thompson CNP [address] [place] [address] [id number] Family Medicine 06/06/23 Drafter (Cad) Electrical Relationship Specialty Start Date End Date Shreyas AmezquitaDO [address] [place] [address] PCP - General Family Medicine 05/12/23 Edie Thompson CNP [address] [place] [address] Family Medicine 06/06/23 Drafter (Cad) Electrical Relationship Specialty Start Date End Date AlirioShreyas berriosDO [address] [place] [phone] PCP - General Family Medicine 05/12/23 Edie Thompson CNP [address] [place] [address] Family Medicine 06/06/23 Jolie Carvalho LISW [address] [place] [address] [place] [address] Supervisor Data Processing Hematology/Oncology 07/17/23 Drafter (Cad) Electrical Relationship Specialty Start Date End Date Shreyas Amezquita DO [address] [place] [phone] PCP - General Family Medicine 05/12/23 Edie Thompson CNP [address] [place] [address] Family Medicine 06/06/23 Jolie Carvalho LISW [address] [place] [address] Supervisor Data Processing Hematology/Oncology 07/17/23 Drafter (Cad) Electrical Relationship Specialty Start Date End Date Shreyas Amezquita DO [address] [place] [phone] PCP - General Family Medicine 05/12/23 Edie Thompson CNP [address] [place] [address] Family Medicine 06/06/23 Jolie Carvalho LISW [address] [place] [address] Supervisor Data Processing Hematology/Oncology 07/17/23 Drafter (Cad) Electrical Relationship Specialty Start Date End Date Shreyas Amezquita DO [address] [place] [phone] PCP - General Family Medicine 05/12/23 Edie Thompson CNP [address] [place] [address] Family Medicine 06/06/23 Jolie Carvalho LISW [address] [place] [address] Supervisor Data Processing Hematology/Oncology 07/17/23 Drafter (Cad) Electrical Relationship Specialty Start Date End Date Shreyas Amezquita DO [address] [place] [phone] PCP - General Family Medicine 05/12/23 Edie Thompson CNP [address] [place] [address] Family Medicine 06/06/23 Jolie Carvalho LISW [address] [place] [address] Supervisor Data Processing Hematology/Oncology 07/17/23 Drafter (Cad) Electrical Relationship Specialty Start Date End Date Shreyas Amezquita DO [address] [place] [phone] PCP - General Family Medicine 05/12/23 Edie Thompson CNP [address] [place] [address] Family Medicine 06/06/23 Jolie Carvalho LISW [address] [place] [address] Supervisor Data Processing Hematology/Oncology 07/17/23 Drafter (Cad) Electrical Relationship Specialty Start Date End Date Shreyas Amezquita DO [address] [place] [phone] PCP - General Family Medicine 05/12/23 Edie Thompson CNP [address] [place] [address] Family Medicine 06/06/23 Jolie Carvalho LISW [address] [place] [address] Supervisor Data Processing Hematology/Oncology 07/17/23 Drafter (Cad) Electrical Relationship Specialty Start Date End Date Shreyas Amezquita DO [address] [place] [phone] PCP - General Family Medicine 05/12/23 Edie Thompson CNP [address] [place] [address] Family Medicine 06/06/23 Jolie Carvalho LISW [address] [place] [address] Supervisor Data Processing Hematology/Oncology 07/17/23 Drafter (Cad) Electrical Relationship Specialty Start Date End Date Shreyas Amezquita DO [address] [place] [phone] PCP - General Family Medicine 05/12/23 Edie Thompson CNP [address] [place] [address] Family Medicine 06/06/23 Jolie Carvalho LISW [address] [place] [address] Supervisor Data Processing Hematology/Oncology 07/17/23 Drafter (Cad) Electrical Relationship Specialty Start Date End Date Shreyas Amezquita DO [address] [place] [phone] PCP - General Family Medicine 05/12/23 Edie Thompson CNP [address] [place] [address] Family Medicine 06/06/23 Jolie Carvalho LISW [address] [place] [address] Supervisor Data Processing Hematology/Oncology 07/17/23 Drafter (Cad) Electrical Relationship Specialty Start Date End Date Shreyas Amezquita DO [address] [place] [phone] PCP - General Family Medicine 05/12/23 Edie Thompson CNP [address] [place] [address] Family Medicine 06/06/23 Jolie Carvalho LISW [address] [place] [address] Supervisor Data Processing Hematology/Oncology 07/17/23 Drafter (Cad) Electrical Relationship Specialty Start Date End Date Shreyas Amezquita DO [address] [place] [phone] PCP - General Family Medicine 05/12/23 Edie Thompson CNP [address] [place] [address] Family Medicine 06/06/23 Jolie Carvalho LISW [address] [place] [address] Supervisor Data Processing Hematology/Oncology 07/17/23 Drafter (Cad) Electrical Relationship Specialty Start Date End Date Shreyas Amezquita DO [address] [place] [phone] PCP - General Family Medicine 05/12/23 Edie Thompson CNP [id number] [place] [address] Family Medicine 06/06/23 Jolie Carvalho LISW [address] [place] [address] Supervisor Data Processing Hematology/Oncology 07/17/23 Drafter (Cad) Electrical Relationship Specialty Start Date End Date Shreyas Amezquita DO [address] [place] [phone] PCP - General Family Medicine 05/12/23 Edie Thompson CNP [address] [place] [address] Family Medicine 06/06/23 Jolie Carvalho, REGULATORY AFFAIRS MANAGER [address] [place] [address] Supervisor Data Processing Hematology/Oncology 07/17/23 Team Status: Active Member Role Status Dates Dr. Shreyas Amezquita DO Primary Care Provider Active Team Status: Inactive Member Role Status Dates Dr. Srheyas Amezquita DO Primary Care Provider Active Start: April 19, 2024 End: April 19, 2024 Dr. Shreyas Amezquita DO Attending Provider Active Start: April 19, 2024 End: April 19, 2024 Dr. Shreyas Amezquita DO Referring Provider Active Start: April 19, 2024 End: April 19, 2024 Drafter (Cad) Electrical Relationship Specialty Start Date End Date Shreyas Amezquita DO [address] [place] [phone] PCP - General Family Medicine 05/12/23 Edie Thompson CNP [address] [place] [address] Family Medicine 06/06/23 Jolie Carvalho, TOM [address] [place] [address] Supervisor Data Processing Hematology/Oncology 07/17/23 Team Status: Inactive Member Role Status Dates Dr. Shreyas Amezquita DO Primary Care Provider Active Start: May 18, 2024 End: May 18, 2024 Dr. Shreyas Amezquita DO Referring Provider Active Start: May 18, 2024 End: May 18, 2024 Dr. Vishal Monte MD Attending Provider Active S tart: May 18, 2024 End: May 18, 2024 Team Status: Inactive Member Role Status Dates Dr. Shreyas Amezquita DO Primary Care Provider Active Start: June 14, 2024 End: June 14, 2024 Dr. Shreyas Amezquita DO Attending Provider Active Start: June 14, 2024 End: June 14, 2024 Dr. Shreyas Amezquita DO Referring Provider Active Start: June 14, 2024 End: June 14, 2024 Team Status: Inactive Member Role Status Dates Dr. Shreyas Amezquita DO Primary Care Provider Active Start: June 15, 2024 End: June 15, 2024 Dr. Vishal Monte MD Attending Provider Active S tart: June 15, 2024 End: June 15, 2024 Dr. Vishal Monte MD Referring Provider Active S tart: June 15, 2024 End: June 15, 2024 Team Status: Active Member Role Status Dates Dr. Shreyas Amezquita DO Primary Care Provider Active Start: June 15, 2024 Dr. Vishal Monte MD Attending Provider Active S tart: June 15, 2024 Team Status: Inactive Member Role Status Dates Dr. Shreyas Amezquita DO Primary Care Provider Active Start: June 17, 2024 End: June 17, 2024 Dr. Shreyas Amezquita DO Referring Provider Active Start: June 17, 2024 End: June 17, 2024 Dianne Donnelly BURN OUT SCARFING OPERATOR, BURN OUT SCARFING OPERATOR-C Attending Provider Active Start: June 17, 2024 End: June 17, 2024 Team Status: Inactive Member Role Status Dates Dr. Shreyas Amezquita DO Primary Care Provider Active Start: July 14, 2024 End: July 14, 2024 Dr. Shreyas Amezquita DO Referring Provider Active Start: July 14, 2024 End: July 14, 2024 Reinaldo Resendiz PA, PA Attending Provider Active Start: July 14, 2024 End: July 14, 2024 Drafter (Cad) Electrical Relationship Specialty Start Date End Date Shreyas Amezquita DO [address] [place] [phone] PCP - General Family Medicine 05/12/23 Edie Thompson CNP [address] [place] [address] Family Medicine 06/06/23 Jolie Carvalho LISW [address] [place] [address] [place] [address] Supervisor Data Processing Hematology/Oncology 07/17/23 Team Status: Inactive Member Role Status Dates Dr. Shreyas Amezquita DO Primary Care Provider Active Start: July 22, 2024 End: July 22, 2024 Dr. Shreyas Amezquita DO Attending Provider Active Start: July 22, 2024 End: July 22, 2024 Dr. Shreyas Amezquita DO Referring Provider Active Start: July 22, 2024 End: July 22, 2024 Drafter (Cad) Electrical Relationship Specialty Start Date End Date Shreyas Amezquita DO [address] [place] [phone] PCP - General Family Medicine 05/12/23 Edie Thompson CNP [address] [place] [address] Family Medicine 06/06/23 Jolie Carvalho LISW [address] [place] [address] Supervisor Data Processing Hematology/Oncology 07/17/23 Drafter (Cad) Electrical Relationship Specialty Start Date End Date Shreyas Amezquita DO [address] [place] [phone] PCP - General Family Medicine 05/12/23 Edie Thompson CNP [address] [place] [address] Family Medicine 06/06/23 Jolie Carvalho LISW [address] [place] [address] Supervisor Data Processing Hematology/Oncology 07/17/23 Drafter (Cad) Electrical Relationship Specialty Start Date End Date Robert Singh MD [address] [place] [address] Physician Otolaryngology 09/25/24 Drafter (Cad) Electrical Relationship Specialty Start Date End Date Robert Singh MD [address] [place] [address] Physician Otolaryngology 09/25/24 Drafter (Cad) Electrical Relationship Specialty Start Date End Date Robert Singh MD [address] [place] [address] Physician Otolaryngology 09/25/24 Drafter (Cad) Electrical Relationship Specialty Start Date End Date Robert Singh MD [address] [place] [address] Physician Otolaryngology 09/25/24 Drafter (Cad) Electrical Relationship Specialty Start Date End Date Shreyas Amezquita DO [address] [place] [phone] PCP - General Family Medicine 05/12/23 Edie Thompson CNP [address] [place] [address] Family Medicine 06/06/23 Jolie Carvalho LISW [address] [place] [address] Supervisor Data Processing Hematology/Oncology 07/17/23 Team Status: Active Member Role/Relationship Status Dates Dr. Shreyas Amezquita DO Primary care physician Active Team Status: Inactive Member Role/Relationship Status Dates Dr. Shreyas Amezquita DO Primary care physician Active Start: November 04, 2024 End: November 04, 2024 Dr. Kev Diaz MD Attending physician Active Start: November 04, 2024 End: November 04, 2024 Dr. Kev Diaz MD Referring Provider Active Start: November 04, 2024 End: November 04, 2024 Team Status: Inactive Member Role/Relationship Status Dates Dr. Shreyas Amezquita DO Primary care physician Active Start: November 17, 2024 End: November 17, 2024 Dr. Shreyas Amezquita DO Referring Provider Active Start: November 17, 2024 End: November 17, 2024 Jeremias Crump BURN OUT SCARFING OPERATOR, BURN OUT SCARFING OPERATOR-C Attending physician Active Start: November 17, 2024 End: November 17, 2024 Reason for Visit (unrecogniz ed section and content) Reason Onset Date Comments Error (VOID this visit) 12/31/2022 Reason Comments New Patient Reason Comments Appointment Reason Comments Procedure BMBX Reason Comments Established Patient Reason Comments Benefits Investigation Reason Comments Imm/Inj Specialty Diagnoses / Procedures Referred By Contac t Referred To Contact Diagnoses 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) MDS (myelodysplastic syndrome), low grade (HCC) Procedures DARBEPOETIN DARREL, NON-ESRD Acosta Cruz, DO [address] [place] [address] [facility] [address] [place] [address] Referral ID Status Reason Start Date Expiration Date V isits Requested Visits Authorized [id number] Authorized 07/07/2023 08/04/2023 99 99 Reason Comments Social Work Services Reason Onset Date Comments Error (VOID this visit) 08/23/2023 Referral ID Status Reason Start Date Expiration Date V isits Requested Visits Authorized [id number] Pending Review 07/07/2023 08/04/2023 99 99 Specialty Diagnoses / Procedures Referred By Contac t Referred To Contact Diagnoses 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) Myelodysplastic disease (HCC) 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) Procedures DARBEPOETIN DARREL, NON-ESRD Acosta Cruz, DO [address] [place] [address] [facility] [address] [place] [address] Referral ID Status Reason Start Date Expiration Date V isits Requested Visits Authorized [id number] Authorized 07/07/2023 10/07/2023 99 99 Referral ID Status Reason Start Date Expiration Date V isits Requested Visits Authorized [id number] Authorized 07/07/2023 05/31/2024 99 99 Reason Comments Results Referral ID Status Reason Start Date Expiration Date V isits Requested Visits Authorized [id number] Authorized 07/07/2023 06/27/2024 99 99 Specialty Diagnoses / Procedures Referred By Contac t Referred To Contact Diagnoses 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) Myelodysplastic disease (HCC) 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) Procedures DARBEPOETIN DARREL, NON-ESRD Acosta Cruz A, DO [address] [address] Phone: tel: fax: Hematology/Oncology [address] [place] [address] Phone: tel: fax:[phone] Referral ID Status Reason Start Date Expiration Date Visits Re quested Visits Authorized [id number] Closed 07/07/2023 06/27/2024 99 99 Specialty Diagnoses / Procedures Referred By Contac t Referred To Contact Diagnoses 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) Procedures DARBEPOETIN DARREL, NON-ESRD Acosta Cruz A, DO [address] [place] [address] Phone: tel: fax: Acosta Cruz, DO [address] [place] [address] Phone: tel: fax: Referral ID Status Reason Start Date Expiration Date V isits Requested Visits Authorized [id number] Authorized 06/14/2024 11/17/2024 99 99 Reason Onset Date Comments Diaz Referral 08/24/2024 Reason Comments New patient, to establish relationship S kimberlyn last November has had a mass/lump on left side of face Reason Onset Date Comments Canceled Surgery 10/11/2024 Reason Comments Post-op Follow-up Post op follow up Source Comments (unrecognize d section and content) In the event this informatio n is protected by the Federal Confidentiality of Alcohol and Drug Abuse Patient Records regulations: The Federal rules restrict any use of the information to criminally investigate or prosecute any alcohol or drug abuse patient.[facility] CenterIn the event this information is protected by the Federal Confidentiality of Alcohol and Drug Abuse Patient Records regulations: The Federal rules restrict any use of the information to criminally investigate or prosecute any alcohol or drug abuse patient.[facility] CenterIn the event this information is protected by the Federal Confidentiality of Alcohol and Drug Abuse Patient Records regulations: The Federal rules restrict any use of the information to criminally investigate or prosecute any alcohol or drug abuse patient.[facility] CenterIn the event this information is protected by the Federal Confidentiality of Alcohol and Drug Abuse Patient Records regulations: The Federal rules restrict any use of the information to criminally investigate or prosecute any alcohol or drug abuse patient.[facility] CenterIn the event this information is protected by the Federal Confidentiality of Alcohol and Drug Abuse Patient Records regulations: The Federal rules restrict any use of the information to criminally investigate or prosecute any alcohol or drug abuse patient.[facility] CenterIn the event this information is protected by the Federal Confidentiality of Alcohol and Drug Abuse Patient Records regulations: The Federal rules restrict any use of the information to criminally investigate or prosecute any alcohol or drug abuse patient.[facility] CenterIn the event this information is protected by the Federal Confidentiality of Alcohol and Drug Abuse Patient Records regulations: The Federal rules restrict any use of the information to criminally investigate or prosecute any alcohol or drug abuse patient.[facility] CenterIn the event this information is protected by the Federal Confidentiality of Alcohol and Drug Abuse Patient Records regulations: The Federal rules restrict any use of the information to criminally investigate or prosecute any alcohol or drug abuse patient.[facility] CenterIn the event this information is protected by the Federal Confidentiality of Alcohol and Drug Abuse Patient Records regulations: The Federal rules restrict any use of the information to criminally investigate or prosecute any alcohol or drug abuse patient.[facility] CenterIn the event this information is protected by the Federal Confidentiality of Alcohol and Drug Abuse Patient Records regulations: The Federal rules restrict any use of the information to criminally investigate or prosecute any alcohol or drug abuse patient.[facility] CenterIn the event this information is protected by the Federal Confidentiality of Alcohol and Drug Abuse Patient Records regulations: The Federal rules restrict any use of the information to criminally investigate or prosecute any alcohol or drug abuse patient.[facility] CenterIn the event this information is protected by the Federal Confidentiality of Alcohol and Drug Abuse Patient Records regulations: The Federal rules restrict any use of the information to criminally investigate or prosecute any alcohol or drug abuse patient.[facility] CenterIn the event this information is protected by the Federal Confidentiality of Alcohol and Drug Abuse Patient Records regulations: The Federal rules restrict any use of the information to criminally investigate or prosecute any alcohol or drug abuse patient.[facility] CenterIn the event this information is protected by the Federal Confidentiality of Alcohol and Drug Abuse Patient Records regulations: The Federal rules restrict any use of the information to criminally investigate or prosecute any alcohol or drug abuse patient.[facility] CenterIn the event this information is protected by the Federal Confidentiality of Alcohol and Drug Abuse Patient Records regulations: The Federal rules restrict any use of the information to criminally investigate or prosecute any alcohol or drug abuse patient.[facility] CenterIn the event this information is protected by the Federal Confidentiality of Alcohol and Drug Abuse Patient Records regulations: The Federal rules restrict any use of the information to criminally investigate or prosecute any alcohol or drug abuse patient.[facility] CenterIn the event this information is protected by the Federal Confidentiality of Alcohol and Drug Abuse Patient Records regulations: The Federal rules restrict any use of the information to criminally investigate or prosecute any alcohol or drug abuse patient.[facility] CenterIn the event this information is protected by the Federal Confidentiality of Alcohol and Drug Abuse Patient Records regulations: The Federal rules restrict any use of the information to criminally investigate or prosecute any alcohol or drug abuse patient.[facility] CenterIn the event this information is protected by the Federal Confidentiality of Alcohol and Drug Abuse Patient Records regulations: The Federal rules restrict any use of the information to criminally investigate or prosecute any alcohol or drug abuse patient.[facility] CenterIn the event this information is protected by the Federal Confidentiality of Alcohol and Drug Abuse Patient Records regulations: The Federal rules restrict any use of the information to criminally investigate or prosecute any alcohol or drug abuse patient.[facility] CenterIn the event this information is protected by the Federal Confidentiality of Alcohol and Drug Abuse Patient Records regulations: The Federal rules restrict any use of the information to criminally investigate or prosecute any alcohol or drug abuse patient.[facility] CenterIn the event this information is protected by the Federal Confidentiality of Alcohol and Drug Abuse Patient Records regulations: The Federal rules restrict any use of the information to criminally investigate or prosecute any alcohol or drug abuse patient.[facility] CenterIn the event this information is protected by the Federal Confidentiality of Alcohol and Drug Abuse Patient Records regulations: The Federal rules restrict any use of the information to criminally investigate or prosecute any alcohol or drug abuse patient.[facility] CenterIn the event this information is protected by the Federal Confidentiality of Alcohol and Drug Abuse Patient Records regulations: The Federal rules restrict any use of the information to criminally investigate or prosecute any alcohol or drug abuse patient.[facility] CenterIn the event this information is protected by the Federal Confidentiality of Alcohol and Drug Abuse Patient Records regulations: The Federal rules restrict any use of the information to criminally investigate or prosecute any alcohol or drug abuse patient.[facility] CenterIn the event this information is protected by the Federal Confidentiality of Alcohol and Drug Abuse Patient Records regulations: The Federal rules restrict any use of the information to criminally investigate or prosecute any alcohol or drug abuse patient.[facility] CenterIn the event this information is protected by the Federal Confidentiality of Alcohol and Drug Abuse Patient Records regulations: The Federal rules restrict any use of the information to criminally investigate or prosecute any alcohol or drug abuse patient.[facility] CenterIn the event this information is protected by the Federal Confidentiality of Alcohol and Drug Abuse Patient Records regulations: The Federal rules restrict any use of the information to criminally investigate or prosecute any alcohol or drug abuse patient.[facility] CenterIn the event this information is protected by the Federal Confidentiality of Alcohol and Drug Abuse Patient Records regulations: The Federal rules restrict any use of the information to criminally investigate or prosecute any alcohol or drug abuse patient.[facility] CenterIn the event this information is protected by the Federal Confidentiality of Alcohol and Drug Abuse Patient Records regulations: The Federal rules restrict any use of the information to criminally investigate or prosecute any alcohol or drug abuse patient.[facility] CenterIn the event this information is protected by the Federal Confidentiality of Alcohol and Drug Abuse Patient Records regulations: The Federal rules restrict any use of the information to criminally investigate or prosecute any alcohol or drug abuse patient.[facility] CenterIn the event this information is protected by the Federal Confidentiality of Alcohol and Drug Abuse Patient Records regulations: The Federal rules restrict any use of the information to criminally investigate or prosecute any alcohol or drug abuse patient.[facility] CenterIn the event this information is protected by the Federal Confidentiality of Alcohol and Drug Abuse Patient Records regulations: The Federal rules restrict any use of the information to criminally investigate or prosecute any alcohol or drug abuse patient.[facility] CenterIn the event this information is protected by the Federal Confidentiality of Alcohol and Drug Abuse Patient Records regulations: The Federal rules restrict any use of the information to criminally investigate or prosecute any alcohol or drug abuse patient.[facility] the event this information is protected by the Federal Confidentiality of Alcohol and Drug Abuse Patient Records regulations: The Federal rules restrict any use of the information to criminally investigate or prosecute any alcohol or drug abuse patient.[facility] CenterIn the event this information is protected by the Federal Confidentiality of Alcohol and Drug Abuse Patient Records regulations: The Federal rules restrict any use of the information to criminally investigate or prosecute any alcohol or drug abuse patient.[facility] CenterIn the event this information is protected by the Federal Confidentiality of Alcohol and Drug Abuse Patient Records regulations: The Federal rules restrict any use of the information to criminally investigate or prosecute any alcohol or drug abuse patient.[facility] CenterIn the event this information is protected by the Federal Confidentiality of Alcohol and Drug Abuse Patient Records regulations: The Federal rules restrict any use of the information to criminally investigate or prosecute any alcohol or drug abuse patient.[facility] CenterIn the event this information is protected by the Federal Confidentiality of Alcohol and Drug Abuse Patient Records regulations: The Federal rules restrict any use of the information to criminally investigate or prosecute any alcohol or drug abuse patient.[facility] CenterIn the event this information is protected by the Federal Confidentiality of Alcohol and Drug Abuse Patient Records regulations: The Federal rules restrict any use of the information to criminally investigate or prosecute any alcohol or drug abuse patient.[facility] CenterIn the event this information is protected by the Federal Confidentiality of Alcohol and Drug Abuse Patient Records regulations: The Federal rules restrict any use of the information to criminally investigate or prosecute any alcohol or drug abuse patient.[facility] CenterIn the event this information is protected by the Federal Confidentiality of Alcohol and Drug Abuse Patient Records regulations: The Federal rules restrict any use of the information to criminally investigate or prosecute any alcohol or drug abuse patient.[facility] CenterIn the event this information is protected by the Federal Confidentiality of Alcohol and Drug Abuse Patient Records regulations: The Federal rules restrict any use of the information to criminally investigate or prosecute any alcohol or drug abuse patient.[facility] CenterIn the event this information is protected by the Federal Confidentiality of Alcohol and Drug Abuse Patient Records regulations: The Federal rules restrict any use of the information to criminally investigate or prosecute any alcohol or drug abuse patient.[facility] CenterIn the event this information is protected by the Federal Confidentiality of Alcohol and Drug Abuse Patient Records regulations: The Federal rules restrict any use of the information to criminally investigate or prosecute any alcohol or drug abuse patient.[facility] CenterIn the event this information is protected by the Federal Confidentiality of Alcohol and Drug Abuse Patient Records regulations: The Federal rules restrict any use of the information to criminally investigate or prosecute any alcohol or drug abuse patient.[facility] CenterIn the event this information is protected by the Federal Confidentiality of Alcohol and Drug Abuse Patient Records regulations: The Federal rules restrict any use of the information to criminally investigate or prosecute any alcohol or drug abuse patient.[facility] CenterIn the event this information is protected by the Federal Confidentiality of Alcohol and Drug Abuse Patient Records regulations: The Federal rules restrict any use of the information to criminally investigate or prosecute any alcohol or drug abuse patient.[facility] Scheduled Active and Recently Administ ered Medications (unrecognized section and content) Medication Order 10/24/2024 10/25/2024 10/26/2024 acetaminophen (TYLENOL) tablet (COMPLETED) 1,000 mg, Oral, Once, 1 dose, On Fri10/26/24 at 1330, PACU Now 1257 (Given - Provid er: Barbie Patricia, RN) ceFAZolin Sodium (ANCEF) 2,000 mg in sterile water for injection 10 mL IV push (COMPLETED) 2,000 mg, Intravenous, ONCE, 1 dose, On Fri10/26/24 at 1000 1052 (IV New Bag - P rovider: Timur Salas, WATER SOFTENER INSTALLER-MEDICAL RECORDS COORDINATOR) PRN Medication Order 10/24/2024 10/25/2024 10/26/2024 bacitracin 500 UNIT/GM ointment (CANCELED) PRN, Starting on Fri10/26/24 at 1137, Until Fri10/26/24 at 1209, Intra-op 1137 (Given - Provid er: Jennifer Arce MD) HYDROmorphone (DILAUDID) 0.2 MG/ML injection 0.2 mg 0.2 mg, Intravenous, PACU EVERY 15 MIN PRN X 4 DOSES, 4 doses, Starting on Fri10/26/24 at 1206, Until Sanjuana 10/28/24 at 1205, Moderate Pain (pain score 4,5,6), PACU Now HYDROmorphone (DILAUDID) 1 mg/mL injection 0.5 mg, Intravenous, PACU EVERY 15 MIN PRN X 4 DOSES, 4 doses, Starting on Fri10/26/24 at 1206, Until 10/27/24 at 2359, Severe Pain (pain score 7,8,9,10), PACU Now lidocaine-EPINEPHrine (XYLOCAINE) 1 %-1:[id number] injection SOLN (CANCELED) PRN, Starting on Fri10/26/24 at 1119, Until Fri10/26/24 at 1209, Intra-op 1119 (Given - Provid er: Jennifer Arce MD - Comment: Left face and neck) naloxone (NARCAN) 0.4 MG/ML injection 0.4 mg, Intravenous, PRN, Starting on Fri10/26/24 at 1206, Until Discontinued, Respiratory Rate Less Than 8 for adults and less than 12 for Peds or for suspected overdose, PACU Now ondansetron (ZOFRAN) 4 MG/2ML injection 4 mg, Intravenous, PACU ONCE PRN, Starting on Fri10/26/24 at 1206, Until Fri10/26/24 at 1805, Nausea, Vomiting, PACU Now oxyCODONE-acetaminophen (PERCOCET) 5-325 mg per tablet 2 Tablet, Oral, PRN, 1 dose, Starting on Fri10/26/24 at 1206, Until Discontinued, Moderate Pain (pain score 4,5,6), PACU Now sodium chloride 0.9 % injection 3 mL, Intravenous, PRN, Starting on Fri10/26/24 at 1206, Until Discontinued, For medication administration and blood draw, PACU Now FOR RECORDS PERTAINING TO PATIENTS WHO ARE OR HAVE BEEN ENROLLED IN A CHEMICAL DEPENDENCY/SUBSTANCEABUSE PROGRAM, SOME INFORMATION MAY BE OMITTED. This clinical summary was aggregated from multiple sources. Caution should be exercised in using it in the provision of clinical care. This summary normalizes information from multiple sources, and as a consequence, information in this document may materially change the coding, format and clinical context of patient data. In addition, data may be omitted in some cases. CLINICAL DECISIONS SHOULD BE BASED ON THE PRIMARY CLINICAL RECORDS. [facility] [employer] [facility]. provides no warranty or guarantee of the accuracy or completeness of information in this document.
[2024-12-17] MEDS: Lactated Ringers 1,000 ML 15 ML IV (08:05)
--- NOTE | 2024-12-17 08:44 | PCM.PRE.AN2 ---
ASA Classification* ASA Classification ASA Classification: 3 Assessment & Plan Anesthesia* Anesthesia Assessment Anesthesia Assessment: Discussed sedation and/or anesthesia options, risks, benefits, and alternatives with patient/parents/legal guardian/POA. Questions invited. The patient/parents/legal guardian/POA seems to understand and agrees to proceed with anesthesia plan. Reviewed the physical assessment, medical history, allergy history and patient home medications list prior to surgery/procedure/anesthetic and documented any changes. Performed airway and anesthesia risk assessments. Anesthesia Type Anesthesia Type: General (Patient has mild aortic stenosis. Avoid increased heart rate and decreased blood pressures. Phenylephrine is drug of choice. Will give DuoNeb breathing treatment preop to tune up his lungs.) History Source History Obtained from:: Patient and Chart Anesthesia Focused Assessment* Temperature: 97.4 F Pulse Rate: 90 Blood Pressure: 124/81 Respiratory Rate: 16 Pulse Ox: 100 Oxygen Delivery Method: Room Air Airway Assessment Mouth opens: >3 cm Mallampati Score: I Teeth Condition: Missing (Patient is missing couple teeth. Rest are tight.) Neck Range of motion (ROM): Limited ROM (Slight Decrease) Labs Anesthesia Preop lab: CBC WBC, (4.4-11.0) 2.9 K/mm3 L 12/09/24, 14:49 RBC, (4.6-6.2) 3.65 M/mm3 L 12/09/24, 14:49 Hgb, (13.0-16.5) 11.2 g/dL L 12/09/24, 14:49 Hct, (40-54) 34.6 % L 12/09/24, 14:49 Plt Count, (150-450) 133 K/mm3 L 12/09/24, 14:49 CHEMISTRY Potassium, (3.3-5.1) 4.3 mmol/L 12/09/24, 14:49 Sodium, (133-145) 135 mmol/L 12/09/24, 14:49 Magnesium, (1.6-2.6) 1.7 mg/dL 11/25/23, 15:25 Phosphorus, (2.5-4.9) 3.2 mg/dL 10/15/21, 13:47 BUN, (4-19) 21 mg/dL H 12/09/24, 14:49 Creatinine, (0.70-1.20) 0.86 mg/dL 12/09/24, 14:49 Glucose, (70-99) 159 mg/dL H 12/09/24, 14:49 TSH, (0.300-4.200) 5.650 uIU/mL H 12/16/24, 09:12 COAG PT, (11.7-14.9) 14.3 SECONDS 12/16/24, 09:12 Pre-Assessment Diagnosis/Proposed Procedure Planned Operative Procedure(s): TURP Anesthesia History Anesthesia History - toddler caregiver: Anesthesia History - toddler caregiver Hx Hospitalization No 12/15/24 15:10 Any Problems With Anesthesia No 12/15/24 15:10 Cholinesterase deficiency No 12/15/24 15:10 You/Your Family Experience No 12/15/24 15:10 fever (hyperthermia) with Relationship Recent Exposure to Contagious No 12/17/24 08:00 Disease Does patient have nerve No 12/15/24 15:10 stimulator Patient instructed to have device shut off --Does patient have Pacemaker No 12/17/24 08:00 or ICD? When Was Last Pacemaker Check QUESTION #4 FULL TEXT: You/Your Family Experience fever (hyperthermia) with Anesthesia Last Oral Intake Last Oral intake: Last Oral Intake NPO since 22:00 12/17/24 08:00 Meds taken in AM with sips of Yes 12/17/24 08:00 water? Meds patient instructed to levothyroxine 12/17/24 08:00 take am of surgery Any additional information?: Yes Meds taken in AM with sips of water?: Yes PONV PONV - toddler caregiver: PONV - toddler caregiver Female No 12/15/24 15:10 HX of Motion Sickness No 12/15/24 15:10 HX of N/V After Surgery No 12/15/24 15:10 Non-Smoker Yes 12/15/24 15:10 Duration of Surgery greater Yes 12/15/24 15:10 than 60 minutes Number of Risk Factors 2 12/15/24 15:10 PONV Score Moderate Risk 12/15/24 15:10 Height & Weight Height & Weight: Anesthesia: Height & Weight Height 5 ft 10 in 12/17/24 08:00 Weight: 69.3 kg 12/17/24 08:00 Body Mass Index (BMI) 21.9 12/17/24 08:00 Respiratory Assessment Respiratory Assessment - toddler caregiver: Respiratory Tract Infection Hx - toddler caregiver Hx Respiratory Tract Infection No 12/15/24 15:10 STOP Sleep Apnea STOP Sleep Apnea - toddler caregiver: STOP Sleep Apnea - toddler caregiver Hx Hypertension No 12/15/24 15:10 Hx Sleep Apnea No 12/15/24 15:10 CPAP BIPAP Do you snore loudly (louder No 12/15/24 15:10 than talking or can be heard Do you often feel tired/ Yes 12/15/24 15:10 fatigued/ sleepy during daytime? Has anyone observed you stop No 12/15/24 15:10 breathing during sleep? STOP Results Negative 12/15/24 15:10 QUESTION #5 FULL TEXT : Do you snore loudly (louder than talking or can be heard through closed doors)? Tobacco Use History Tobacco Use History - toddler caregiver: Tobacco Use History - toddler caregiver Tobacco Use Smoking Status Never smoker 12/15/24 15:10 Hx Tobacco Use No 12/15/24 15:10 Years Smoking Packs Smoked per Day Smoking Cessation Date was within the last 15 years Hx Smoking Cessation Date Hx Smoking Cessation Counseling Hematologic Medial History Hematologic Hx - toddler caregiver: Hematologic Medical Hx - gis developer Hx of Blood Transfusion No 12/15/24 15:10 Hx of Transfusion in last 3 No 12/15/24 15:10 Months Date of Last Transfusion (if within last 3 months) Ever experience any problems No 12/15/24 15:10 with transfusion(s)? Specify any problems Hx of Preganancy in last 3 N/A 12/15/24 15:10 Months Nurse Filling Out Transfusion DSCHRIBER 12/15/24 15:10 & Questions: Date: 12/15/24 12/15/24 15:10 Time: 15:12 12/15/24 15:10 Patient unable to answer at this time (ie. confused, unrespo /Reproduction History /Reproductive History - toddler caregiver: /Reproductive Hx- toddler caregiver Hx Now No 12/15/24 15:10 Gestational Age (in weeks): EDC: Hx Hx Para Hx Section SAB No 12/15/24 15:10 Active Medications Active Medications: Current Medications Generic Name Dose Route Start Last Admin Trade Name Freq PRN Reason Stop Dose Admin Cefazolin Sodium 2 gm/ Sodium 110 mls @ 200 mls/hr 12/17/24 09:45 Chloride IV 12/17/24 10:17 INTRAOP ONE Lactated Ringer's 1,000 mls @ 15 mls/hr 12/17/24 07:45 12/17/24 08:05 IV 15 mls/hr .Q48H ARMANI Administration PFSH Medical History Wears hearing aid Wears glasses History of steroid therapy Diabetes Bladder disease Anemia Syncope Gastric reflux History of irregular heartbeat History of stress test History of Holter monitoring History of echocardiogram MDS (myelodysplastic syndrome) Contact with and (suspected) exposure to other viral communicable diseases Esophagitis Wears dentures Anxiety Thyroid disease Injury of back Loss of consciousness History of diverticulitis History of IBS History of hiatal hernia Non-smoker Leg cramps History of edema Cardiology follow-up encounter Personal history of colonic polyps Vertigo Concussion Chronic anemia Lipoma Skin lesion Fibromyalgia Premature ventricular contractions Bradycardia Home Medications Medication Instructions Recorded Last Taken Type finasteride 5 mg tablet 5 mg PO QHS 01/09/21 12/16/24 History paroxetine HCl 40 mg tablet 40 mg PO QHS 01/09/21 12/16/24 History Acapella #1 ea 02/21/22 Unknown Rx spacer #1 ea 08/29/22 Unknown Rx tamsulosin 0.4 mg capsule 0.4 mg PO QHS 04/08/23 12/16/24 History levothyroxine 100 mcg tablet 100 mcg PO QDAY 07/29/23 12/17/24 04:30 History fluticasone propionate 50 1 spray intranasal QDAY 10/13/23 12/17/24 History mcg/actuation nasal spray,suspension tralokinumab-ldrm 150 mg/mL 300 mg subcut Q2W 10/13/23 12/09/24 History subcutaneous syringe (Adbry) albuterol sulfate 90 mcg/actuation 2 inh inhalation Q6H PRN SOB #8.5 11/17/23 Unknown Rx aerosol inhaler grams pantoprazole 40 mg tablet,delayed 40 mg PO DAILY #90 TABLETS 12/12/23 12/16/24 Rx release bupropion HCl 150 mg 24 hr tablet, 150 mg PO DAILY PRN DEPRESSION 05/18/24 12/16/24 History extended release polyethylene glycol 3350 17 4 g PO QDAY 05/18/24 12/16/24 History gram/dose oral powder (Miralax) Allergy/AdvReac Type Severity Reaction Status Date / Time cefaclor (From Ceclor) Allergy Unknown Verified 12/17/24 07:55 contact metal agent Allergy Rash Verified 12/17/24 07:55 nortriptyline Allergy Unknown Verified 12/17/24 07:55 Penicillins Allergy blisters Verified 12/17/24 07:55 on feet morphine AdvReac Intermediate Other Verified 12/17/24 07:57 alfuzosin (From Uroxatral) AdvReac Unknown Verified 12/17/24 07:55 esomeprazole (From Nexium) AdvReac Itching Verified 12/17/24 07:55 lansoprazole (From Prevacid) AdvReac Upset Verified 12/17/24 07:55 Stomach Family History Father Diabetes Afib pacemaker Mother Heart disease Hx CHF Hypertension Surgical History History of removal of cyst History of bilateral cataract extraction History of esophagogastroduodenoscopy (EGD) Hx of colonoscopy History of prostate surgery History of testicular mass excision History of tonsillectomy and adenoidectomy History of cholecystectomy Social History household members: spouse housing: house Smoking Status: Never smoker alcohol intake: never substance use type: does not use caffeine: Yes Type: carbonated beverages what type of physical activity do you participate in: none seatbelt use: always do you feel safe at home: Yes Review of Systems (Anesthesia) ROS Narrative System reviewed and no additional complaints, except as documented. Physical Exam Resp Resp Narrative: slightly labored. will give nebulizer treatment.
[2024-12-17] MEDS: Cefazolin 1 GM/5 ML Vial 2 GM IV (10:00)
[2024-12-17] MEDS: Lidocaine 1% (5 ml sdv) 5 ML Vial IV (10:05)
--- NOTE | 2024-12-17 10:09 | PCM.DC ---
Discharge Instructions DC O2, CPAP, BIPAP needs Home O2 Discharge instructions: No Dressing / Incision Discharge Activity: Return to Normal Activity and May Not Drive (while taking narcotic pain medications.) Dressing / Incision Call your doctor if you observe: Fever of 101 or Higher Follow Up Care Please Follow Up With: Kev Diaz MD When: Call [phone] for an appointment Test Results: Test results from this visit will be discussed in further detail at your follow-up appointment, if applicable. Discharge Plan Admission Primary Reason for Your Visit: turp Attending Provider: Kev Diaz Primary Care Provider: Suresh Messina Instructions Print Language: [place] Discharge Orders/Prescriptions Prescriptions: New ciprofloxacin HCl [Cipro] 500 mg tablet 500 mg PO BID Qty: 10 0RF Continued paroxetine HCl 40 mg tablet 40 mg PO QHS finasteride 5 mg tablet 5 mg PO QHS (DME) Acapella See Rx Instructions .ROUTE .MEDSUPPLY Qty: 1 0RF Rx Instructions: As directed (DME) spacer See Rx Instructions .ROUTE .MEDSUPPLY Qty: 1 0RF Rx Instructions: As directed fluticasone propionate 50 mcg/actuation spray,suspension 1 spray intranasal QDAY Adbry 150 mg/mL syringe 300 mg subcut Q2W Rx Instructions: administer as 2 consecutive 150 mg injections tamsulosin 0.4 mg capsule 0.4 mg PO QHS Patient Comments: TAKE 1 CAPSULE BY MOUTH EVERYDAY AT BEDTIME polyethylene glycol 3350 [Miralax] 17 gram/dose powder 4 g PO QDAY levothyroxine 100 mcg tablet 100 mcg PO QDAY bupropion HCl 150 mg tablet extended release 24 hr 150 mg PO DAILY PRN (Reason: DEPRESSION) Patient Comments: TAKE 1 TABLET BY MOUTH EVERY DAY albuterol sulfate 90 mcg/actuation HFA aerosol inhaler 2 inh inhalation Q6H PRN (Reason: SOB) Qty: 8.5 11RF pantoprazole 40 mg tablet,delayed release (DR/EC) 40 mg PO DAILY Qty: 90 2RF Referrals / Follow Up: Kev Diaz MD [Med Staff - Active Staff, Urology] Suresh Messina DO [Primary Care Provider, Family Practice] Disposition Disposition (needs filled in before D/C Order can be placed): Home, Self Care
[2024-12-17] MEDS: fentaNYL 100 MCG/2 ML Ampul 50 MCG IV (10:15)
--- NOTE | 2024-12-17 10:21 | PCM.OPRPT ---
Operative Report (Standard) Operative Information Date of Procedure: 12/17/24 Pre-Operative Diagnosis: Bladder neck contracture causing obstruction Post-Operative Diagnosis: The same Surgery/Procedure Performed: Transurethral incision of a bladder neck contracture event sales representative: No Type of Anesthesia: General RN Documented Start/Stop Times: Operation Date: 12/17/24 09:45 Case Time Into Pre-Op 12/17/24 07:38 Out of Pre-Op 12/17/24 09:56 Procedure Start Time: 10:14 Procedure Stop Time: 10:22 Select all DRAINS/GRAFTS/IMPLANTS that apply: Drains Drain details: 22 [place] three-way [place] Estimated Blood Loss: Minimal Specimen collected: No Description of surgery: This is an 79-year-old gentleman he has a history of a prior surgery on his prostate he reported having like a really weak flow difficulty emptying his bladder on cystoscopy he has a mild bladder neck contracture today organ to do incision of the bladder neck contracture patient was taken back to the operating room after smooth induction of anesthesia went inside with a 24 [place] noncontinuous flow Olympus bipolar resectoscope I bent the loop for pinpoint needle and then at the 5 o'clock position I incised the bladder neck down to the muscle fibers and at the 7 o'clock position and 5 inside the bladder neck down to the muscle fibers I did a flow test had a wide open flow hopefully this will improve his flow really had no obstructive BPH tissue just a little bit of a bladder neck contracture after opening this up patient acetic was reversed we will keep a catheter overnight for irrigation and possibly remove tomorrow for voiding trial. Surgical Findings: Bladder neck contracture Complications Complications: No Admit VTE Documentation VTE Present on Admission: No VTE Mechan Device Prophylaxis: SCD's VTE Pharm Prophylaxis ordered?: No
--- NOTE | 2024-12-17 10:23 | PCM.POST.ANE ---
Anesthesia: Postop Eval I Current Vital Signs Temperature: 97.5 F Pulse Rate: 89 Blood Pressure: 123/64 Respiratory Rate: 18 Pulse Ox: 96 Assessment Airway patent: Yes Spontaneous unlabored respirations: Yes nausea: No Vomiting: No Anesthesia Complication: No Fluid Hydration Crystalloid volume administer (ml): 300 Total IV fluid infused: 300 Progress Note Anesthesia document: Postop Eval 1 completed: Yes
--- NOTE | 2024-12-17 10:28 | PCM.POST.ANE ---
Anesthesia: Postop Eval I Current Vital Signs Temperature: 97.5 F Pulse Rate: 90 Blood Pressure: 123/64 Respiratory Rate: 18 Pulse Ox: 98 Assessment Airway patent: Yes Spontaneous unlabored respirations: Yes nausea: No Vomiting: No Anesthesia Complication: No Fluid Hydration Crystalloid volume administer (ml): 1,000 Total IV fluid infused: 1,000 Progress Note Anesthesia document: Postop Eval 1 completed: Yes
--- NOTE | 2024-12-17 12:06 | POSTOPAN2_ITS ---
Anesthesia Postop Eval I Sum Postop Eval Completion status Anesthesia document: Postop Eval 1 completed: Yes Anesthesia Postop Eval I Summary Anesthesia Postop Eval I Summary: Anesthesia Postop Eval I: Assessment Summary Airway patent Yes 12/17/24 10:33 [email or web address] Spontaneous unlabored Yes 12/17/24 10:33 [email or web address] [email or web address] respirations Mental status nausea No 12/17/24 10:33 [email or web address] Vomiting Anesthesia Postop Eval I: Fluid Summary Crystalloid volume administer 300 12/17/24 10:33 [email or web address] (ml) Colloids volume administered ( ml) Blood Product volume administered (ml) Total IV fluid infused 300 12/17/24 10:33 [email or web address] [email or web address] Anesthesia Postop Eval I: Summary Notes Anesthesia Complication No 12/17/24 10:33 [email or web address] [email or web address] Anesthesia Complication Comment: Post-operative progress note Anesthesia: Postop Eval II Evaluation Mental status: Awake Pain Level: 2 nausea: No Vomiting: No
--- NOTE | 2024-12-17 12:06 | PCM.POSTANE2 ---
Anesthesia Postop Eval I Sum Postop Eval Completion status Anesthesia document: Postop Eval 1 completed: Yes Anesthesia Postop Eval I Summary Anesthesia Postop Eval I Summary: Anesthesia Postop Eval I: Assessment Summary Airway patent Yes 12/17/24 10:33 [email or web address] Spontaneous unlabored Yes 12/17/24 10:33 TOOL [email or web address] respirations Mental status nausea No 12/17/24 10:33 [email or web address] Vomiting Anesthesia Postop Eval I: Fluid Summary Crystalloid volume administer 300 12/17/24 10:33 [email or web address] (ml) Colloids volume administered ( ml) Blood Product volume administered (ml) Total IV fluid infused 300 12/17/24 10:33 [email or web address] [email or web address] Anesthesia Postop Eval I: Summary Notes Anesthesia Complication No 12/17/24 10:33 [email or web address] [email or web address] Anesthesia Complication Comment: Post-operative progress note Anesthesia: Postop Eval II Evaluation Mental status: Awake Pain Level: 2 nausea: No Vomiting: No
[2024-12-17] MEDS: 0.9% Normal Saline (1000mL) 1,000 ML 125 ML IV ×2 (12:16→21:22)
[2024-12-17] MEDS: Fluticasone 0.05% 1 SPRAY NASAL.SRY NASAL (14:01)
[2024-12-18 05:55] VITALS: BP 122/67; PULSE 61; RESP 18; TEMP 36.3; O2SAT 98
[2024-12-18] MEDS: 0.9% Normal Saline (1000mL) 1,000 ML 125 ML IV (05:58)
--- NOTE | 2024-12-18 07:17 | PCM.PN.GU ---
Subjective Subjective s/p sharon ortiz out home late today Objective Data Objective Data Vital Signs: Vital Signs Temp Pulse Resp BP Pulse Ox O2 Del Method O2 Flow Rate 97.3 F L 61 18 122/67 H 98 Room Air 2 12/18/24 05:55 12/18/24 05:55 12/18/24 05:55 12/18/24 05:55 12/18/24 05:55 12/18/24 05:55 12/17/24 10:40 Oxygen Flow Rate (L/min) 2 Oxygen Delivery Method Room Air Weight: 69.3 kg Body Mass Index (BMI) 21.9 Intake & Output: Intake and Output for Last 24 Hours 12/16/24 12/17/24 12/18/24 23:59 23:59 23:59 Intake Total 1720 / 2220 1900 / 1900 Balance 1720 / 2220 190 / 190
[2024-12-18 07:59] VITALS: BP 131/83; PULSE 71; RESP 17; TEMP 36.2; O2SAT 98
[2024-12-18] MEDS: Fluticasone 0.05% 1 SPRAY NASAL.SRY NASAL (09:44)
[2024-12-18] MEDS: Polyethylene Glycol 3350 17 GM PACKET PO (09:45)
[2024-12-18 13:20] VITALS: BP 119/57; PULSE 65; RESP 16; TEMP 35.9; O2SAT 97
== END 2024-12-18 13:51 | disposition home or self-care (01) ==
LOC: SDC 11:17 → MS3 11:17
PROVIDERS: Anesthesiology; Admitting Provider Urology; PCP Family Medicine; Referring Provider Urology; Visit Provider Urology
DX: N32.0 Bladder-neck obstruction (principal); E11.9 Type 2 diabetes mellitus without complications; N32.89 Other specified disorders of bladder; R97.20 Elevated prostate specific antigen [PSA]; I35.0 Nonrheumatic aortic (valve) stenosis; Z79.899 Other long term (current) drug therapy; Z79.51 Long term (current) use of inhaled steroids; E03.9 Hypothyroidism, unspecified; K21.9 Gastro-esophageal reflux disease without esophagitis
CPT/HCPCS: 52500; 00912; 36415; 84443; 85610; 85730; 93005; 94640; 96361; 96365; 96366; 96375; 99221; G0378; J0744; J2405